=== PATIENT | male | born 1950 | race Caucasian/White ===

== ENCOUNTER 2022-10-29 11:10 | Emergency (ER) | payer MEDICARE, SELFPAY ==
[2022-10-29 11:24] VITALS: BP 178/95; PULSE 102; RESP 16; TEMP 36.5; O2SAT 98; BMI 20.5
[2022-10-29] MEDS: DEXTROSE 50 %-WATER 25 GM/50 ML SYRINGE IV (11:30)
--- NOTE | 2022-10-29 11:31 | ED.AMS1 ---
HPI - Altered Mental Status General Chief Complaint: Altered Mental Status Stated Complaint: DIZZINESS AND CONFUSION Time Seen by Provider: 10/29/22 11:31 History of Present Illness HPI narrative: pt brought into the emergency department with mental status changes. Family states patient woke up this morning and was not acting like himself. He did not have breakfast which she normally does in the morning. He states he forgot to do serial. Family states he was not oriented did not know who the family was he is slurring his speech and was not able to get himself dressed. He is normally pretty active. He is a diabetic and he took his medications last night. He was completely normal last night. He denies any trauma. Denies any fever, chills, cough. Denies any chest pain, shortness of breath. He denies any headache. He has not been sick with any nausea, vomiting, or diarrhea. Related Data Home Medications Medication Instructions Recorded Confirmed albuterol sulfate 2.5 mg/3 mL 2.5 mg continuous nebulization Q4H 10/29/22 10/29/22 (0.083 %) solution for nebulization PRN bronchospasm bupropion HCl 150 mg tablet,12 hr 150 mg PO Q12H 10/29/22 10/29/22 sustained-release carvedilol 6.25 mg tablet 6.25 mg PO Q12H 10/29/22 10/29/22 lisinopril 20 mg tablet 20 mg PO DAILY 10/29/22 10/29/22 metformin 1,000 mg tablet 1,000 mg PO BIDWM 10/29/22 10/29/22 pravastatin 40 mg tablet 40 mg PO DAILY 10/29/22 10/29/22 Allergies Allergy/AdvReac Type Severity Reaction Status Date / Time No Known Drug Allergies Allergy Verified 10/29/22 11:19 Review of Systems ROS Status of ROS 10 or more systems reviewed and unremarkable except as noted in history and below PFSH PFSH Social History Smoking status: Current every day smoker Exam Narrative Exam Narrative: Nurses notes and vital signs reviewed and patient is not hypoxic. General: Nontoxic, Elderly, and in no apparent distress. Skin: Warm, dry, no pallor noted. No Rash Head: Normocephalic, atraumatic. Neck: Supple, non-tender. Eye: Pupils are equal, round and EOMI. No scleral icterus. Ears, Nose, Mouth, and Throat: TM clear, no posterior oropharynx erythema or nasal mucosal hypertrophy, uvula is mid-line Oral mucosa is moist Cardiovascular: Regular Rate and Rhythm without murmur, gallop or rub. Respiratory: No accessory muscle use or respiratory distress. Lungs are clear to auscultation, no wheezing, rales or rhonchi Chest Wall: no tenderness Back: No midline thoracic or lumbar vertebral tenderness. No CVA tenderness Musculoskeletal: normal ROM, no calf or popliteal tenderness, no lower extremity edema/swelling GI: Abdomen is soft, non-distended. Normal bowel sounds. No masses appreciated. No tenderness to palpation. No rebound, guarding, or rigidity noted. Neurological: A&O x4. No cranial nerve dysfunction observed. No truncal ataxia. Moves all extremities. Sensation intact. Psychiatric: Cooperative and interactive. Normal mood and affect. Constitutional Vital Signs, click to edit/add: Last Vital Signs Temp 97.7 F 10/29/22 11:24 Pulse 100 H 10/29/22 13:59 Resp 16 10/29/22 13:59 BP 168/94 H 10/29/22 13:59 Pulse Ox 987 H 10/29/22 13:59 O2 Del Method Room Air 10/29/22 11:37 Course Vital Signs Vital signs: Vital Signs Temperature 97.7 F 10/29/22 11:24 Pulse Rate 102 H 10/29/22 11:24 Respiratory Rate 16 10/29/22 11:24 Blood Pressure 178/95 H 10/29/22 11:24 Pulse Oximetry 98 10/29/22 11:24 Oxygen Delivery Method Room Air 10/29/22 11:24 Temperature 97.7 F 10/29/22 11:24 Pulse Rate 100 H 10/29/22 13:59 Respiratory Rate 16 10/29/22 13:59 Blood Pressure 168/94 H 10/29/22 13:59 Pulse Oximetry 987 H 10/29/22 13:59 Oxygen Delivery Method Room Air 10/29/22 11:37 MDM - Altered Mental Status MDM Narrative Medical decision making narrative: Patient's glucose was 34. He was given an amp of dextrose and immediately went complex however remember everything was talkative all of his symptoms resolved 100 percent. All of that has resolved including CT scan, laboratory studies were unremarkable except his BNP was 2500. The patient denied any lower extremity edema or cramping. He denied any chest pain, shortness of breath. The patient is nontoxic, requesting discharge home. Advised to continue to monitor his sugar at home and shortly he eats his meals. At this time the patient is without objective evidence of an acute process requiring hospitalization or inpatient management. The patient has remained hemodynamically stable. No additional indication for emergent studies at this time. I answered all questions. Discussed discharge instructions including standard anticipatory guidance and what should prompt a return to the emergency department, including if they get worse are not getting better or develops any new or concerning symptoms. I've given them specific time frame in which to follow-up, and who to follow-up with. The patient demonstrates understanding. Patient is nontoxic and stable for discharge with outpatient follow-up. This note was created with the assistance of a speech recognition program. Although the intention is to generate documents that actually reflects the content of the visit, no guarantees can be provided that every mistake has been identified and corrected by editing. Lab Data Attestation: I reviewed the patient's lab results. Labs: Lab Results 10/29/22 10/29/22 10/29/22 Range/Units 11:28 11:31 11:41 WBC 8.0 (4.0-11.0) 10^3/uL RBC 4.59 L (4.70-6.10) 10^6/uL Hgb 13.8 L (14.0-18.0) g/dL Hct 41.2 L (42.0-54.0) % MCV 89.8 (80.0-94.0) fL MCH 30.1 (25.9-34.0) pg MCHC 33.5 (29.9-35.2) g/dL RDW 13.0 (11.0-15.0) % Plt Count 227 (150-450) 10^3/uL MPV 9.3 L (9.5-13.5) fL Neut % (Auto) 68.9 (43.0-75.0) % Lymph % (Auto) 19.0 L (20.5-60.0) % [place] % (Auto) 7.2 (1.7-12.0) % Eos % (Auto) 2.4 (0.9-7.0) % Baso % (Auto) 0.5 (0.2-2.0) % Neut # (Auto) 5.5 (1.4-6.5) 10^3/uL Lymph # (Auto) 1.5 (1.2-3.8) 10^3/uL [place] # (Auto) 0.6 (0.3-0.8) 10^3/uL Eos # (Auto) 0.2 (0.0-0.7) 10^3/uL Baso # (Auto) 0.0 (0.0-0.1) 10^3/uL Abs Immat Gran (auto) 0.16 H (0.00-0.03) 10^3/uL Imm/Tot Granulo (auto) 2.0 H (0.0-0.5) % Sodium 134 L (136-145) mmol/L Potassium 4.9 (3.5-5.1) mmol/L Chloride 100 (98-107) mmol/L Carbon Dioxide 28.5 (21.0-32.0) mmol/L Anion Gap 10.4 BUN 19.0 H (7.0-18.0) mg/dL Creatinine 1.11 (0.70-1.30) mg/dL Est GFR ( Amer) >60 (>=60) Est GFR (Non-Af Amer) >60 (>=60) BUN/Creatinine Ratio 17.1 Glucose 40 L* (74-106) mg/dL Calcium 9.2 (8.5-10.1) mg/dL Total Bilirubin 0.8 (0.2-1.0) mg/dL AST 24 (15-37) U/L ALT 22 (16-63) U/L Alkaline Phosphatase 91 (46-116) U/L Troponin I High Sens 13.1 (4.0-76.1) pg/mL NT-Pro-B Natriuret Pep 2527.0 H* (<=900.0) pg/mL Total Protein 7.7 (6.4-8.2) g/dL Albumin 4.0 (3.4-5.0) g/dL Globulin 3.7 g/dL Albumin/Globulin Ratio 1.1 POC Glucose 35 L* 154 H (74-106) mg/dL 10/29/22 10/29/22 Range/Units 12:13 13:46 WBC (4.0-11.0) 10^3/uL RBC (4.70-6.10) 10^6/uL Hgb (14.0-18.0) g/dL Hct (42.0-54.0) % MCV (80.0-94.0) fL MCH (25.9-34.0) pg MCHC (29.9-35.2) g/dL RDW (11.0-15.0) % Plt Count (150-450) 10^3/uL MPV (9.5-13.5) fL Neut % (Auto) (43.0-75.0) % Lymph % (Auto) (20.5-60.0) % [place] % (Auto) (1.7-12.0) % Eos % (Auto) (0.9-7.0) % Baso % (Auto) (0.2-2.0) % Neut # (Auto) (1.4-6.5) 10^3/uL Lymph # (Auto) (1.2-3.8) 10^3/uL [place] # (Auto) (0.3-0.8) 10^3/uL Eos # (Auto) (0.0-0.7) 10^3/uL Baso # (Auto) (0.0-0.1) 10^3/uL Abs Immat Gran (auto) (0.00-0.03) 10^3/uL Imm/Tot Granulo (auto) (0.0-0.5) % Sodium (136-145) mmol/L Potassium (3.5-5.1) mmol/L Chloride (98-107) mmol/L Carbon Dioxide (21.0-32.0) mmol/L Anion Gap BUN (7.0-18.0) mg/dL Creatinine (0.70-1.30) mg/dL Est GFR ( Amer) (>=60) Est GFR (Non-Af Amer) (>=60) BUN/Creatinine Ratio Glucose (74-106) mg/dL Calcium (8.5-10.1) mg/dL Total Bilirubin (0.2-1.0) mg/dL AST (15-37) U/L ALT (16-63) U/L Alkaline Phosphatase (46-116) U/L Troponin I High Sens (4.0-76.1) pg/mL NT-Pro-B Natriuret Pep (<=900.0) pg/mL Total Protein (6.4-8.2) g/dL Albumin (3.4-5.0) g/dL Globulin g/dL Albumin/Globulin Ratio POC Glucose 129 H 195 H (74-106) mg/dL ECG Data Attestation: I personally reviewed and interpreted this ECG as follows: Discharge Plan Discharge Chief Complaint: Altered Mental Status Clinical Impression: Hypoglycemia Patient Disposition: Home, Self-Care Time of Disposition Decision: 13:56 Condition: Good Mode of Transportation: Private Vehicle Prescriptions / Home Meds: No Action albuterol sulfate 2.5 mg /3 mL (0.083 %) solution for nebulization 2.5 mg continuous nebulization Q4H PRN (Reason: bronchospasm) bupropion HCl 150 mg tablet sustained-release 12 hr 150 mg PO Q12H carvedilol 6.25 mg tablet 6.25 mg PO Q12H lisinopril 20 mg tablet 20 mg PO DAILY metformin 1,000 mg tablet 1,000 mg PO BIDWM pravastatin 40 mg tablet 40 mg PO DAILY Instructions: Hypoglycemia in a Person with Diabetes (ED) Stand Alone Forms: Portal Instructions Referrals: LAURA SHEA [Primary Care Provider] - 1 week Discharge Date/Time: 10/29/22 14:05
--- NOTE | 2022-10-29 11:32 | ECG_ITS ---
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
--- NOTE | 2022-10-29 11:32 | XR_ITS ---
The [address] [address] Patient Name: FREIDA RIDDLE MRN: [id number] date: 1950 Sex: M Assigned Patient Location: ER Current Patient Location: ER Accession/Order Number: [id number] Exam Date: 10/29/2022 12:00 Report Date: 10/29/2022 12:25 At the request of: YEIMY MARTINEZ Procedure: XR chest 1V EXAM: XR chest 1V HISTORY: weakness and cough COMPARISON: 03/24/2022 TECHNIQUE: Chest X-ray AP, 1 view FINDINGS: Support devices: None. Lungs/pleura: No consolidation, effusion, or pneumothorax. Heart and mediastinum: Normal contours. Bones: No acute abnormality identified. XR/XR chest 1V Impression: No radiographic evidence of acute cardiopulmonary process. No definite consultation. However pneumonia can be radiographically occult. Electronically authenticated by: MAGY KNUTSON Date: 10/29/2022 12:25
[2022-10-29 11:34] VITALS: BMI 20.5
[2022-10-29 11:34] LABS: Glucometer 35 mg/dL (74-106)
[2022-10-29 11:37] VITALS: O2SAT 98
--- NOTE | 2022-10-29 11:40 | CT_ITS ---
The [address] [address] Patient Name: FREIDA RIDDLE MRN: [id number] date: 1950 Sex: M Assigned Patient Location: ER Current Patient Location: ER Accession/Order Number: [id number] Exam Date: 10/29/2022 12:05 Report Date: 10/29/2022 12:28 At the request of: YEIMY MARTINEZ Procedure: CT head/brain wo con EXAMINATION: CT head/brain wo con, 10/29/2022 12:05 PM EDT HISTORY: Mental status changes COMPARISON: None. TECHNIQUE: CT scan of the head was performed without IV contrast. CT dose reduction technique was used, including Automated Exposure Control. FINDINGS: BRAIN PARENCHYMA/CSF SPACES: Ventricles are normal in size for age. There is no hemorrhage, mass effect or midline shift. Mild low attenuation in the white matter consistent with chronic microvascular ischemia. PARANASAL SINUSES: Fluid noted in the mastoid air cells bilaterally. SKULL BASE AND CALVARIUM: Normal. EXTRACRANIAL SOFT TISSUES: Normal. CT/CT head/brain wo con IMPRESSION: 1. No acute intracranial abnormality. MRI would be more sensitive for acute infarct if clinically indicated. 2. Bilateral mastoiditis. Electronically authenticated by: GREY BRITO Date: 10/29/2022 12:28
[2022-10-29 11:43] LABS: Glucometer 154 mg/dL (74-106)
--- NOTE | 2022-10-29 11:43 | PC.NURSE ---
Ordered pt. a meal tray at this time
[2022-10-29 11:45] LABS: Basophils Percent Auto 0.5 % (0.2-2.0); Eosinophils Absolute Auto 0.2 10^3/uL (0.0-0.7); Eosinophils Percent Auto 2.4 % (0.9-7.0); Hematocrit 41.2 % (42.0-54.0); Hemoglobin 13.8 g/dL (14.0-18.0); Immature Granulocytes Abs Auto 0.16 10^3/uL (0.00-0.03); Lymphocytes Absolute Auto 1.5 10^3/uL (1.2-3.8); Mean Corpuscular HGB Conc 33.5 g/dL (29.9-35.2); Mean Corpuscular Hemoglobin 30.1 pg (25.9-34.0); Mean Corpuscular Volume 89.8 fL (80.0-94.0); Mean Platelet Volume 9.3 fL (9.5-13.5); Monocytes Absolute Auto 0.6 10^3/uL (0.3-0.8); Monocytes Percent Auto 7.2 % (1.7-12.0); Neutrophils Absolute Auto 5.5 10^3/uL (1.4-6.5); Neutrophils Percent Auto 68.9 % (43.0-75.0); Platelet Count 227 10^3/uL (150-450); Red Blood Count 4.59 10^6/uL (4.70-6.10)
[2022-10-29 12:12] LABS: Alanine Aminotransferase 22 U/L (16-63); Albumin Globulin Ratio 1.1; Alkaline Phosphatase 91 U/L (46-116); Anion Gap 10.4; Aspartate Amino Transferase 24 U/L (15-37); BUN Creatinine Ratio 17.1; Bilirubin Total 0.8 mg/dL (0.2-1.0); Calcium 9.2 mg/dL (8.5-10.1); Carbon Dioxide 28.5 mmol/L (21.0-32.0); Chloride 100 mmol/L (98-107); Estimated GFR (African America >60 (>=60); Estimated GFR (Non-African Ame >60 (>=60); Globulin 3.7 g/dL; Potassium 4.9 mmol/L (3.5-5.1); Sodium 134 mmol/L (136-145); Total Protein 7.7 g/dL (6.4-8.2); Troponin I High Sensitivity 13.1 pg/mL (4.0-76.1)
[2022-10-29 12:15] LABS: Glucometer 129 mg/dL (74-106)
[2022-10-29 12:20] LABS: Glucose 40 mg/dL (74-106)
[2022-10-29 12:37] VITALS: BP 150/78
[2022-10-29 13:47] LABS: Glucometer 195 mg/dL (74-106)
[2022-10-29 13:59] VITALS: BP 168/94; PULSE 100; RESP 16; O2SAT 98
== END 2022-10-29 14:05 | disposition home or self-care (01) ==
PROVIDERS: Emergency Provider Emergency Medicine; PCP Family Medicine
DX: E11.649 Type 2 diabetes mellitus with hypoglycemia without coma (principal); Z79.899 Other long term (current) drug therapy; Z79.84 Long term (current) use of oral hypoglycemic drugs; F17.210 Nicotine dependence, cigarettes, uncomplicated
CPT/HCPCS: 36415; 70450; 71045; 80053; 81003; 83880; 84484; 85025; 93005; 99285

== ENCOUNTER 2023-04-20 12:47 | Inpatient (IN) | payer MEDICARE, SELFPAY ==
[2023-04-20] VITALS (32 sets, daily range): BP systolic 92–140; BP diastolic 54–83; PULSE 83–109; RESP 16–29; TEMP 36.3–36.6; O2SAT 94–99; BMI 17.7; BMI 16.9
--- NOTE | 2023-04-20 13:22 | ECG_ITS ---
The 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
[2023-04-20] MEDS: IPRATROPIUM/ALBUTEROL SULFATE 3 ML AMPUL.NEB IH (13:42)
[2023-04-20 13:49] LABS: Basophils Percent Auto 0.1 % (0.2-2.0); Hematocrit 41.1 % (42.0-54.0); Hemoglobin 14.2 g/dL (14.0-18.0); Immature Granulocytes Abs Auto 0.07 10^3/uL (0.00-0.03); Immature Granulocytes Pct Auto 0.6 % (0.0-0.5); Lymphocytes Absolute Auto 0.8 10^3/uL (1.2-3.8); Lymphocytes Percent Auto 6.5 % (20.5-60.0); Mean Corpuscular HGB Conc 34.5 g/dL (29.9-35.2); Mean Corpuscular Volume 86.9 fL (80.0-94.0); Monocytes Absolute Auto 0.6 10^3/uL (0.3-0.8); Monocytes Percent Auto 4.5 % (1.7-12.0); Neutrophils Absolute Auto 10.9 10^3/uL (1.4-6.5); Neutrophils Percent Auto 88.3 % (43.0-75.0); Platelet Count 251 10^3/uL (150-450); Red Blood Count 4.73 10^6/uL (4.70-6.10); Red Cell Distribution Width 12.6 % (11.0-15.0); White Blood Count 12.3 10^3/uL (4.0-11.0)
--- NOTE | 2023-04-20 13:54 | XR_ITS ---
The [address] [address] Patient Name: FREIDA RIDDLE MRN: [id number] date: 1950 Sex: M Assigned Patient Location: ER Current Patient Location: ER Accession/Order Number: [id number] Exam Date: 04/20/2023 14:20 Report Date: 04/20/2023 15:08 At the request of: JEANNETTE TITUS Procedure: XR chest 2V CHEST X-RAY. INDICATION: Cough. COMPARISON: 10/29/2022. TECHNIQUE: Frontal and lateral chest radiographs. FINDINGS: TUBES AND LINES: None. LUNGS: Hyperexpanded lungs. No focal opacity. Redemonstrated calcified granulomas in the left lung. PLEURA: No effusions or pneumothorax. HEART AND MEDIASTINUM: Within normal limits. OSSEOUS STRUCTURES: No acute abnormality. XR/XR chest 2V IMPRESSION: No acute findings. Electronically authenticated by: EDGAR YOUNG Date: 04/20/2023 15:08
[2023-04-20] MEDS: 0.9 % SODIUM CHLORIDE 1,000 ML 1000 ML IV ×2 (13:55→14:59)
[2023-04-20] MEDS: ONDANSETRON PF 4 MG/2 ML VIAL IV (13:55)
[2023-04-20 14:11] LABS: Adenovirus NOT DETECTED (NOT DETECTE); Bordetella parapertussis NOT DETECTED (NOT DETECTE); Coronavirus 229E NOT DETECTED (NOT DETECTE); Coronavirus HKU1 NOT DETECTED (NOT DETECTE); Coronavirus NL63 NOT DETECTED (NOT DETECTE); Coronavirus OC43 NOT DETECTED (NOT DETECTE); Human Metapneumovirus NOT DETECTED (NOT DETECTE); Human Rhinovirus/Enterovirus NOT DETECTED (NOT DETECTE); Influenza A NOT DETECTED (NOT DETECTE); Influenza B NOT DETECTED (NOT DETECTE); Mycoplasma pneumoniae NOT DETECTED (NOT DETECTE); Parainfluenza Virus 1 NOT DETECTED (NOT DETECTE); Parainfluenza Virus 2 NOT DETECTED (NOT DETECTE); Parainfluenza Virus 3 NOT DETECTED (NOT DETECTE); Parainfluenza Virus 4 NOT DETECTED (NOT DETECTE); Respiratory Syncytial Virus NOT DETECTED (NOT DETECTE); SARS-CoV-2 NOT DETECTED (NOT DETECTE)
[2023-04-20 14:17] LABS: Alanine Aminotransferase 33 U/L (16-63); Albumin Globulin Ratio 0.7; Albumin Level 2.9 g/dL (3.4-5.0); Alkaline Phosphatase 108 U/L (46-116); Aspartate Amino Transferase 21 U/L (15-37); BUN Creatinine Ratio 32.7; Bilirubin Total 0.5 mg/dL (0.2-1.0); Calcium 8.8 mg/dL (8.5-10.1); Carbon Dioxide 20.9 mmol/L (21.0-32.0); Chloride 91 mmol/L (98-107); Estimated GFR (African America 32 (>=60); Estimated GFR (Non-African Ame 26 (>=60); Globulin 4.2 g/dL; Total Protein 7.1 g/dL (6.4-8.2); Troponin I High Sensitivity 25.7 pg/mL (4.0-76.1)
--- NOTE | 2023-04-20 14:30 | CT_ITS ---
[address] [address] Patient Name: FREIDA RIDDLE MRN: [id number] date: 1950 Sex: M Assigned Patient Location: ER Current Patient Location: ER Accession/Order Number: [id number] Exam Date: 04/20/2023 14:40 Report Date: 04/20/2023 15:10 At the request of: JEANNETTE TITUS Procedure: CT abdomen pelvis wo con EXAMINATION: CT abdomen pelvis wo con HISTORY: pain COMPARISON: 12/14/2020 TECHNIQUE: Axial, Coronal, and Sagittal images were created without IV contrast. Dose reduction techniques were achieved by using automated exposure control and/or adjustment of mA and/or kV according to patient size and/or use of iterative reconstruction technique. FINDINGS: LUNG BASES: Severe emphysema. Scattered calcified nodules, prior granulomatous disease LIVER: Pneumobilia. No focal mass BILIARY: Surgical clips from prior cholecystectomy PANCREAS: Severe stable atrophy. Scattered pancreatic calcifications most significant in the pancreatic head SPLEEN: No enlargement or focal lesion. ADRENALS: No mass or enlargement. KIDNEYS: No mass, obstruction, or calcification. BOWEL/MESENTERY: Mild colonic diverticulosis. Nonobstructive bowel gas pattern. Dilated loop of bowel with suture lines in the pelvis measuring up to 6.9 cm, stable AORTA/VASCULAR: Dilation of the right common iliac artery which measures 1.6 cm in diameter. Extensive atherosclerosis RETROPERITONEUM: No mass or adenopathy. LYMPH NODES: No adenopathy. URINARY BLADDER: No visible focal wall thickening, lesion, or calculus. PELVIC ORGANS: Enlarged prostate gland with calcifications ABDOMINAL WALL: No mass or hernia. BONES: No bony lesion or fracture. OTHER: Negative. CT/CT abdomen pelvis wo con IMPRESSION: Stable focal marked dilatation of a small bowel loop in the pelvis, nonspecific Pneumobilia Pancreatic atrophy with extensive calcifications suggesting chronic pancreatitis, grossly stable Electronically authenticated by: CAMILO BINGHAM Date: 04/20/2023 15:10
[2023-04-20 14:34] LABS: Glucose 793 mg/dL (74-106); Potassium 6.9 mmol/L (3.5-5.1); Sodium 120 mmol/L (136-145)
[2023-04-20 14:46] LABS: Acetone SMALL (NEGATIVE)
[2023-04-20 14:49] LABS: Partial Thromboplastin Time 25.9 sec (22.3-36.2); Prothrombin Time 9.5 sec (9.0-11.6)
[2023-04-20 15:01] LABS: INR <0.93
[2023-04-20] MEDS: INSULIN REGULAR IN 0.9 % NACL 100 UNIT/100 ML PLAST..BAG 5.126 UNIT IV (15:20)
[2023-04-20] MEDS: INSULIN REGULAR 300 UNITS/3 ML 10 UNIT IV (15:20)
--- NOTE | 2023-04-20 15:23 | ED.GENADUL1 ---
HPI - General Adult General Chief complaint: Nausea/Vomiting/Diarrhea Stated complaint: NAUSEA/VOMITTING Time Seen by Provider: 04/20/23 13:21 Source: patient and family Mode of arrival: walk-in Limitations: no limitations History of Present Illness HPI narrative: 72-year-old male presents with chief compliant of nausea and vomiting for the past several weeks. pt daughter in law at bedside states pt was seen by pcp yesterday and diagnosed with otitis media and started on augmentin. pt has a history of cirrhosis in the past with a complex abdominal surgery due to the cirrhosis. family members state he has had significant weight loss In the last several months. Patient does have a history of chronic obstructive pulmonary disease, hypertension and type 2 diabetes. [id number] states he will not take his medications at home. Patient has a loose nonproductive cough. He is hard of hearing, most of the past medical history obtained from [id number]. Patient will answer questions appropriately but is a poor historian. Upon arrival to the emergency room, patient states she just does not feel well. He has no appetite is unable to keep food down. Denies abdominal pain. Related Data Home Medications Medication Instructions Recorded Confirmed albuterol sulfate 2.5 mg/3 mL 2.5 mg continuous nebulization Q4H 10/29/22 04/20/23 (0.083 %) solution for nebulization PRN bronchospasm bupropion HCl 150 mg tablet,12 hr 150 mg PO Q12H 10/29/22 04/20/23 sustained-release carvedilol 6.25 mg tablet 6.25 mg PO Q12H 10/29/22 10/29/22 lisinopril 20 mg tablet 20 mg PO DAILY 10/29/22 04/20/23 metformin 1,000 mg tablet 1,000 mg PO BIDWM 10/29/22 04/20/23 pravastatin 40 mg tablet 40 mg PO DAILY 10/29/22 04/20/23 amoxicillin 875 mg-potassium 1 tab PO Q12H 04/20/23 04/20/23 clavulanate 125 mg tablet ciprofloxacin 0.3 %-dexamethasone 4 drp otic (ear) Q12H 04/20/23 04/20/23 0.1 % ear drops,suspension prednisone 10 mg tablet 40 mg PO DAILY 04/20/23 04/20/23 Allergies Allergy/AdvReac Type Severity Reaction Status Date / Time No Known Drug Allergies Allergy Verified 10/29/22 11:19 Review of Systems ROS Narrative All Systems are negative except as noted/marked. PFSH PFSH Social History Smoking status: Current every day smoker Exam Narrative Exam Narrative: Nurses note and vital signs reviewed and patient is not hypoxic. General: The patient appears Ill, no acute distress. Patient sleeping on cot Skin: Warm, dry, no pallor noted. There is no rash noted. Head: Normocephalic, atraumatic Eye: Normal conjunctiva, no drainage, EOMI. PERRL Ears, Nose, Mouth, and Throat: hard of hearing, oral mucosa is moist. Nares patent. Mouth without vesicles. Ear canals patent. Cardiovascular: Regular Rate and Rhythm Respiratory: Patient is in no distress, no accessory muscle use, lungs are clear to auscultation, no wheezing, rales or rhonchi Back: non-tender, no CVA tenderness bilaterally to percussion. GI: Normal bowel sounds, no tenderness to palpation, no masses appreciated. No rebound, guarding, or rigidity noted. Musculoskeletal: The patient has no evidence of calf tenderness, no pitting edema, symmetrical pulses noted bilaterally Neurological: A&O x4, normal speech Psychiatric: Cooperative Constitutional Vital Signs, click to edit/add: Last Vital Signs Temp 97.3 F L 04/20/23 12:55 Pulse 93 H 04/20/23 15:40 Resp 17 04/20/23 15:40 BP 127/54 04/20/23 15:30 Pulse Ox 97 04/20/23 14:20 O2 Del Method Room Air 04/20/23 13:34 Course Vital Signs Vital signs: Vital Signs Temperature 97.3 F L 04/20/23 12:55 Pulse Rate 93 H 04/20/23 12:55 Respiratory Rate 20 04/20/23 12:55 Blood Pressure 140/77 04/20/23 12:55 Pulse Oximetry 96 04/20/23 12:55 Oxygen Delivery Method Room Air 04/20/23 12:55 Temperature 97.3 F L 04/20/23 12:55 Pulse Rate 93 H 04/20/23 15:40 Respiratory Rate 17 04/20/23 15:40 Blood Pressure 127/54 04/20/23 15:30 Pulse Oximetry 97 04/20/23 14:20 Oxygen Delivery Method Room Air 04/20/23 13:34 Medical Decision Making MDM Narrative Medical decision making narrative: Patient presented here chief complaint nausea vomiting.Upon arrival to the emergency room, IV was established, patient was given IV fluids. Blood work EKG chest x-ray were all obtained. Patient does have a history of nausea vomiting with a significant abdominal surgery history in the past. CT scan was performed to rule out bowel obstruction. Chest x-ray read normal by radiology , CT scan so no acute bowel obstruction. As reviewed below patient does have significant hyponatremia and hyperkalemia, acute renal failure, hyperglycemia with no anion gap. Patient was given IV fluids and insulin here in emergency room. I discussed case with Dr. Bailey, who agrees patient can be admitted to our ICU unit. Patient's admitted. Patient family members agree with plan of care. Diagnosis of dehydration, hyperkalemia, hyponatremia, acute renal failure Differential Diagnosis Differential Diagnosis: copd, dehydration, nause and vomiting, bowel obstruction Medical Records Medical records reviewed: Yes I reviewed the patient's medical records Lab Data Lab results reviewed: Yes I reviewed the patient's lab results Lab results narrative: CBC shows an elevated white blood cell count of 12.3, sodium of one twenty,, potassium is 6.9, BUN/creatinine elevated at eighty and 2.45, glucose also elevated some 0.93, anion gap is normal at fifteen BNP is two thousand four hundred forty-eight, he does have small acetone. CO2 is also low at 20.9. Labs: Lab Results 04/20/23 04/20/23 04/20/23 Range/Units 13:39 14:05 15:36 WBC 12.3 H (4.0-11.0) 10^3/uL RBC 4.73 (4.70-6.10) 10^6/uL Hgb 14.2 (14.0-18.0) g/dL Hct 41.1 L (42.0-54.0) % MCV 86.9 (80.0-94.0) fL MCH 30.0 (25.9-34.0) pg MCHC 34.5 (29.9-35.2) g/dL RDW 12.6 (11.0-15.0) % Plt Count 251 (150-450) 10^3/uL MPV 11.0 (9.5-13.5) fL Neut % (Auto) 88.3 H (43.0-75.0) % Lymph % (Auto) 6.5 L (20.5-60.0) % [place] % (Auto) 4.5 (1.7-12.0) % Eos % (Auto) 0.0 L (0.9-7.0) % Baso % (Auto) 0.1 L (0.2-2.0) % Neut # (Auto) 10.9 H (1.4-6.5) 10^3/uL Lymph # (Auto) 0.8 L (1.2-3.8) 10^3/uL [place] # (Auto) 0.6 (0.3-0.8) 10^3/uL Eos # (Auto) 0.0 (0.0-0.7) 10^3/uL Baso # (Auto) 0.0 (0.0-0.1) 10^3/uL Abs Immat Gran (auto) 0.07 H (0.00-0.03) 10^3/uL Imm/Tot Granulo (auto) 0.6 H (0.0-0.5) % PT 9.5 (9.0-11.6) sec INR <0.93 APTT 25.9 (22.3-36.2) sec Sodium 120 L* (136-145) mmol/L Potassium 6.9 H* (3.5-5.1) mmol/L Chloride 91 L (98-107) mmol/L Carbon Dioxide 20.9 L (21.0-32.0) mmol/L Anion Gap 15.0 BUN 80.0 H* (7.0-18.0) mg/dL Creatinine 2.45 H (0.70-1.30) mg/dL Est GFR ( Amer) 32 L (>=60) Est GFR (Non-Af Amer) 26 L (>=60) BUN/Creatinine Ratio 32.7 Glucose 793 H* (74-106) mg/dL Calcium 8.8 (8.5-10.1) mg/dL Total Bilirubin 0.5 (0.2-1.0) mg/dL AST 21 (15-37) U/L ALT 33 (16-63) U/L Alkaline Phosphatase 108 (46-116) U/L Troponin I High Sens 25.7 (4.0-76.1) pg/mL NT-Pro-B Natriuret Pep 2448.0 H* (<=900.0) pg/mL Total Protein 7.1 (6.4-8.2) g/dL Albumin 2.9 L (3.4-5.0) g/dL Globulin 4.2 g/dL Albumin/Globulin Ratio 0.7 Lipase 19.0 (16.0-77.0) U/L Urine Color Lt. yellow (YELLOW) Urine Clarity Clear (CLEAR) Urine pH 5.5 (5.0-9.0) Ur Specific [place] 1.010 (1.005-1.025) Urine Protein Negative (NEG/TRACE) mg/dL Urine Glucose (UA) >=1000 A (NEGATIVE) mg/dL Urine Ketones 15 A (NEGATIVE) mg/dL Urine Occult Blood Negative (NEGATIVE) Urine Nitrite Negative (NEGATIVE) Urine Bilirubin Negative (NEGATIVE) Urine Urobilinogen 0.2 (0.2-1.0) EU/dL Ur Leukocyte Esterase Negative (NEGATIVE) Urine RBC 0-2 (0-2) #/HPF Urine WBC 0-2 A (NONE SEEN) #/HPF Ur Squamous Epith Cells None seen (NONE/RARE) #/LPF Urine Crystals None seen (None Seen) #/HPF Urine Bacteria None seen (NONE SEEN) #/HPF Urine Casts None seen (NONE SEEN) #/LPF Urine Mucus None seen (NONE SEEN) Acetone, Qual Small A (NEGATIVE) Adenovirus (PCR) Not detected (NOT DETECTE) C. pneumoniae DNA (PCR) Not detected (NOT DETECTE) Coronavirus Type OC43 Not detected (NOT DETECTE) Coronavirus Type HKU1 Not detected (NOT DETECTE) Coronavirus Type 229E Not detected (NOT DETECTE) Coronavirus Type NL63 Not detected (NOT DETECTE) Human Metapneumovir PCR Not detected (NOT DETECTE) M. pneumoniae (PCR) Not detected (NOT DETECTE) Parainfluenza PCR Not detected (NOT DETECTE) Parainfluenza 2 (PCR) Not detected (NOT DETECTE) Parainfluenza 3 (PCR) Not detected (NOT DETECTE) Parainfluenza 4 (PCR) Not detected (NOT DETECTE) RSV (RT-PCR) Not detected (NOT DETECTE) Entero/Rhino (PCR) Not detected (NOT DETECTE) SARS-CoV-2 (PCR) Not detected (NOT DETECTE) Bordetella pertussis (PCR) Not detected (NOT DETECTE) B parapertussis DNA PCR Not detected (NOT DETECTE) Influenza Type A (PCR) Not detected (NOT DETECTE) Influenza Type B (PCR) Not detected (NOT DETECTE) Imaging Data Chest x-ray: Attestation: I have reviewed the pertinent imaging results. Radiologist's impression: ITS Impressions Chest X-Ray 04/20/23 13:54 IMPRESSION: No acute findings. Electronically authenticated by: EDGAR YOUNG Date: 04/20/2023 15:08 Abdomen/Pelvis CT 04/20/23 14:30 IMPRESSION: Stable focal marked dilatation of a small bowel loop in the pelvis, nonspecific Pneumobilia Pancreatic atrophy with extensive calcifications suggesting chronic pancreatitis, grossly stable Electronically authenticated by: CAMILO BINGHAM Date: 04/20/2023 15:10 ECG Data Attestation: ?I have reviewed the pertinent ECG results. Interpretation: 1328 Sinus tachycardia with a rate of100 bpm, IA interval 186 ms, 100 bpm, IA interval 186 ms, QRS duration 100 ms, 100 No STEMI, artifact notedNo STEMI, artifact noted, similar compared to previous EKG in October 2022 Discharge Plan Discharge Chief Complaint: Nausea/Vomiting/Diarrhea Clinical Impression: Acute renal failure, Hyperglycemia, Dehydration, Acute hyperkalemia Patient Disposition: Admitted As Inpatient Time of Disposition Decision: 15:45 Condition: Fair
[2023-04-20 15:46] LABS: Bilirubin Urine NEGATIVE (NEGATIVE); Blood Urine NEGATIVE (NEGATIVE); Clarity Urine CLEAR (CLEAR); Color Urine LT. YELLOW (YELLOW); Glucose Urine UA >=1000 mg/dL (NEGATIVE); Ketones Urine 15 mg/dL (NEGATIVE); Leukocyte Esterase Urine NEGATIVE (NEGATIVE); Nitrite Urine NEGATIVE (NEGATIVE); Protein Urine NEGATIVE (NEG/TRACE); Urobilinogen Urine 0.2 EU/dL (0.2-1.0); pH Urine 5.5 (5.0-9.0)
[2023-04-20 15:58] LABS: Bacteria Urine NONE SEEN #/HPF (NONE SEEN); Cast Seen? NONE SEEN #/LPF (NONE SEEN); Crystals Seen? None Seen #/HPF (None Seen); Mucus Urine NONE SEEN (NONE SEEN); RBC Urine 0-2 #/HPF (0-2); Squamous Epithelial Cell Urine NONE SEEN #/LPF (NONE/RARE); WBC Urine 0-2 #/HPF (NONE SEEN)
[2023-04-20 16:26] LABS: Glucometer 529 mg/dL (74-106)
[2023-04-20 16:53] LABS: Anion Gap 15.7; BUN Creatinine Ratio 34.4; Calcium 7.9 mg/dL (8.5-10.1); Carbon Dioxide 20.7 mmol/L (21.0-32.0); Chloride 103 mmol/L (98-107); Estimated GFR (African America 38 (>=60); Estimated GFR (Non-African Ame 31 (>=60); Glucose 457 mg/dL (74-106); Potassium 5.4 mmol/L (3.5-5.1); Sodium 134 mmol/L (136-145)
[2023-04-20 18:15] LABS: Glucometer 429 mg/dL (74-106)
--- NOTE | 2023-04-20 19:35 | RESP.RT ---
No PRN breathing tx given. Pt denies need. No respiratory distress noted.
[2023-04-20 21:15] LABS: Glucometer 311 mg/dL (74-106)
[2023-04-20] MEDS: 0.9 % SODIUM CHLORIDE 1,000 ML 125 ML IV (21:16)
[2023-04-20] MEDS: BUPROPION HCL 150 MG SR TABLET 12H PO (21:21)
[2023-04-20] MEDS: CARVEDILOL 6.25 MG TABLET PO (21:21)
[2023-04-20] MEDS: AMOXICILLIN/POTASSIUM CLAV 1 TAB TABLET PO (21:21)
[2023-04-20] MEDS: CIPROFLOXACIN HCL/DEXAMETH 0.3%/0.1% OTIC SUSP 150 DROP/7.5 ML BOTTLE OT (21:22)
[2023-04-20] MEDS: ENOXAPARIN SODIUM 40 MG/0.4 ML SYRINGE SUBQ (21:22)
[2023-04-20] MEDS: ATORVASTATIN CALCIUM 10 MG TABLET PO (21:25)
[2023-04-20] MEDS: INSULIN ASPART 300 UNIT/3 ML PEN SUBQ (21:32)
[2023-04-21] VITALS (34 sets, daily range): BP systolic 79–143; BP diastolic 43–114; PULSE 73–98; RESP 14–31; TEMP 36.3–36.8; O2SAT 93–99
[2023-04-21] MEDS: 0.9 % SODIUM CHLORIDE 500 ML IV (01:40)
[2023-04-21] MEDS: 0.9 % SODIUM CHLORIDE 1,000 ML 150 ML IV ×4 (02:30→23:00)
[2023-04-21 04:47] LABS: Eosinophils Absolute Auto 0.1 10^3/uL (0.0-0.7); Eosinophils Percent Auto 1.2 % (0.9-7.0); Hemoglobin 11.3 g/dL (14.0-18.0); Immature Granulocytes Abs Auto 0.07 10^3/uL (0.00-0.03); Immature Granulocytes Pct Auto 0.7 % (0.0-0.5); Lymphocytes Absolute Auto 1.3 10^3/uL (1.2-3.8); Lymphocytes Percent Auto 13.8 % (20.5-60.0); Mean Corpuscular HGB Conc 33.2 g/dL (29.9-35.2); Mean Corpuscular Hemoglobin 29.7 pg (25.9-34.0); Mean Corpuscular Volume 89.5 fL (80.0-94.0); Mean Platelet Volume 10.5 fL (9.5-13.5); Monocytes Absolute Auto 0.7 10^3/uL (0.3-0.8); Monocytes Percent Auto 7.2 % (1.7-12.0); Neutrophils Absolute Auto 7.5 10^3/uL (1.4-6.5); Neutrophils Percent Auto 77.1 % (43.0-75.0); Platelet Count 162 10^3/uL (150-450); Red Cell Distribution Width 12.9 % (11.0-15.0); White Blood Count 9.7 10^3/uL (4.0-11.0)
[2023-04-21 05:07] LABS: Alanine Aminotransferase 22 U/L (16-63); Albumin Globulin Ratio 0.7; Alkaline Phosphatase 67 U/L (46-116); Anion Gap 10.8; Aspartate Amino Transferase 17 U/L (15-37); BUN Creatinine Ratio 42.8; Bilirubin Total 0.4 mg/dL (0.2-1.0); Calcium 7.8 mg/dL (8.5-10.1); Carbon Dioxide 19.8 mmol/L (21.0-32.0); Chloride 107 mmol/L (98-107); Estimated GFR (African America 55 (>=60); Estimated GFR (Non-African Ame 45 (>=60); Globulin 2.9 g/dL; Glucose 289 mg/dL (74-106); Potassium 5.6 mmol/L (3.5-5.1); Sodium 132 mmol/L (136-145); Total Protein 4.9 g/dL (6.4-8.2)
[2023-04-21] MEDS: BUPROPION HCL 150 MG SR TABLET 12H PO ×2 (07:33→17:13)
[2023-04-21] MEDS: CARVEDILOL 6.25 MG TABLET PO ×2 (07:33→17:13)
[2023-04-21] MEDS: AMOXICILLIN/POTASSIUM CLAV 1 TAB TABLET PO ×2 (07:33→17:22)
[2023-04-21] MEDS: CIPROFLOXACIN HCL/DEXAMETH 0.3%/0.1% OTIC SUSP 150 DROP/7.5 ML BOTTLE OT ×2 (07:35→17:22)
[2023-04-21 08:03] LABS: Glucometer 246 mg/dL (74-106)
[2023-04-21] MEDS: INSULIN ASPART 300 UNIT/3 ML PEN SUBQ ×4 (09:17→22:58)
[2023-04-21] MEDS: LISINOPRIL 20 MG TABLET PO (09:20)
--- NOTE | 2023-04-21 09:38 | PM.HP ---
H&P: HPI History of Present Illness Chief complaint: NAUSEA/VOMITTING Acute renal failure hyperglycemia Narrative: patient is a very pleasant 72-year-old male with past medical history of hypertension, stk-[id number] type 2 diabetes, hyperlipidemia, depression, smoker who presented with a several week history of some nausea and vomiting and some hearing loss. He was diagnosed with right otitis media and had been prescribed Augmentin. He was brought to the hospital yesterday for elevated blood sugar, weakness and was found to have an acute kidney injury and some electrolyte abnormalities. Patient reports improvement but says he still cannot hear and is having some pressure in his right ear. Along with some drainage from both ears. He denies any other issues or complaints this morning, he denies any fevers chills nausea vomiting or diarrhea.viral panel was negative. Review of Systems ROS Narrative ROS: a complete review of systems were reviewed with patient and are positive as below or listed in History of Chief Complaint. General: no fever, chills, night sweats Head: no headache, trauma, visual changes, nausea or vomiting Skin: no reported rashes, itching or sores Eyes: no blurriness of vision Ears:reported hearing loss, some vertigo, right earache, no tinnitus Throat: no sore throat, hoarseness, swelling of neck, or tongue pain Heart: no chest pain Lungs: no shortness of breath or cough GI: no diarrhea, but vomiting/nausea Urinary: no urinary urgency, frequency or pain Neuro: no numbness or tingling HEM: no bleeding issues or bruising ENDO: no thyroid problems Psych: no anxiety or depression PFSH [facility] Medical History (Updated 04/21/23 @ 14:44 by Ashley Begum DO) COPD (chronic obstructive pulmonary disease) ?J44.9 - Chronic obstructive pulmonary disease, unspecified (ICD-10) Otitis media ?H66.90 - Otitis media, unspecified, unspecified ear (ICD-10) Diabetes ?E11.9 - Type 2 diabetes mellitus without complications (ICD-10) Social History Within the past year, how often did you have a drink containing alcohol: never Score interpretation: A score less than 4 is consistent with normal alcohol consumption. Smoking status: Current every day smoker Non-prescribed substance use: denies use Highest level of school completed/degree received: high school graduate Meds Home Medications and Allergies Home Medications Medication Instructions Recorded Confirmed Type albuterol sulfate 2.5 mg/3 mL 2.5 mg continuous nebulization Q4H 10/29/22 04/20/23 History (0.083 %) solution for nebulization PRN bronchospasm bupropion HCl 150 mg tablet,12 hr 150 mg PO Q12H 10/29/22 04/20/23 History sustained-release carvedilol 6.25 mg tablet 6.25 mg PO Q12H 10/29/22 10/29/22 History lisinopril 20 mg tablet 20 mg PO DAILY 10/29/22 04/20/23 History metformin 1,000 mg tablet 1,000 mg PO BIDWM 10/29/22 04/20/23 History pravastatin 40 mg tablet 40 mg PO DAILY 10/29/22 04/20/23 History amoxicillin 875 mg-potassium 1 tab PO Q12H 04/20/23 04/20/23 History clavulanate 125 mg tablet ciprofloxacin 0.3 %-dexamethasone 4 drp otic (ear) Q12H 04/20/23 04/20/23 History 0.1 % ear drops,suspension prednisone 10 mg tablet 40 mg PO DAILY 04/20/23 04/20/23 History Allergies Allergy/AdvReac Type Severity Reaction Status Date / Time No Known Drug Allergies Allergy Verified 10/29/22 11:19 Exam Narrative Exam Narrative: General: Patient is alert, and oriented to person, place and time with normal affect, proper hygiene Skin: no visible rashes, or ulcers Head: atraumatic, acephalic Eyes: PERRLA, no nystagmus present, conjunctiva clear, no scleral icterus Ears: right Tympanic Membrane with effusion and erythema, significant drainage in the right ear canal, diminished gross auditory acuity, Left TM ok Nose: symmetric, no discharge, no maxillary or frontal sinus tenderness Heart: Normal rate and rhythm, no murmurs/rubs/gallops Lungs: no audible wheezes, crackles and normal breath sounds all lung linares Abdomen: Normal audible bowel sounds, no distension, No palpable masses, no organomegaly, no rebound/guarding/ or rigidity Musculoskeletal: no swelling bilateral lower extremities Neuro: CN II-X grossly intact, normal sensation upper and lower extremities Constitutional Vital Signs, click to edit/add: Last Vital Signs Temp 97.4 F L 04/21/23 07:44 Pulse 89 04/21/23 09:00 Resp 22 04/21/23 09:00 BP 134/67 04/21/23 07:44 Pulse Ox 98 04/21/23 07:53 O2 Del Method Room Air 04/20/23 19:35 Results Labs Labs: Short CBC 04/20/23 04/21/23 Range/Units 13:39 04:24 WBC 12.3 H 9.7 (4.0-11.0) 10^3/uL Hgb 14.2 11.3 L (14.0-18.0) g/dL Hct 41.1 L 34.0 L (42.0-54.0) % Plt Count 251 162 (150-450) 10^3/uL BMP 04/20/23 04/20/23 04/21/23 13:39 16:41 04:24 Sodium 120 L* 134 L 132 L Potassium 6.9 H* 5.4 H 5.6 H Chloride 91 L 103 107 Carbon Dioxide 20.9 L 20.7 L 19.8 L BUN 80.0 H* 72.0 H 65.0 H Creatinine 2.45 H 2.09 H 1.52 H Glucose 793 H* 457 H 289 H Calcium 8.8 7.9 L 7.8 L Liver Function 04/20/23 04/21/23 Range/Units 13:39 04:24 Total Bilirubin 0.5 0.4 (0.2-1.0) mg/dL AST 21 17 (15-37) U/L ALT 33 22 (16-63) U/L Alkaline Phosphatase 108 67 (46-116) U/L Albumin 2.9 L 2.0 L (3.4-5.0) g/dL Urine 04/20/23 Range/Units 15:36 Urine Color Lt. yellow (YELLOW) Urine Clarity Clear (CLEAR) Urine pH 5.5 (5.0-9.0) Ur Specific [place] 1.010 (1.005-1.025) Urine Protein Negative (NEG/TRACE) mg/dL Urine Glucose (UA) >=1000 A (NEGATIVE) mg/dL Assessment and Plan Assessment and Plan (1) Acute hyperkalemia: Assessment and Plan: was given insulin for treatment, down to 5.6 today, will continue insulin therapy, Hold lisinopril. (2) Hyperglycemia: Assessment and Plan: SSI, hold metformin for MIR (3) Acute renal failure: Assessment and Plan: hold metformin, continue IVF Qualifiers: Acute renal failure type: unspecified Qualified Code(s): N17.9 - Acute kidney failure, unspecified (4) Otitis media: Assessment and Plan: continue cipro drops, oral Augmentin, will add daily flonase. May benefit from ENT consult as outpatient Qualifiers: Otitis media type: serous Chronicity: acute Laterality: right Recurrence: non-recurrent Qualified Code(s): H65.01 - Acute serous otitis media, right ear (5) COPD (chronic obstructive pulmonary disease): Assessment and Plan: smoker, continue prn albuterol Qualifiers: COPD type: unspecified COPD Qualified Code(s): J44.9 - Chronic obstructive pulmonary disease, unspecified (6) Diabetes: Assessment and Plan: SSI, hold metformin, Ha1c was 12.1, start Levemir 10 units Qualifiers: Diabetes mellitus type: type 2 Diabetes mellitus halfway insulin use: without intermodal customer service use Diabetes mellitus complication status: with other specified complication Qualified Code(s): E11.69 - Type 2 diabetes mellitus with other specified complication (7) Hypertension: Assessment and Plan: continue coreg, hold lisinopril for elevated potassium Qualifiers: Hypertension type: primary hypertension Qualified Code(s): I10 - Essential (primary) hypertension (8) Hyperlipidemia associated with type 2 diabetes mellitus: Assessment and Plan: continue pravastatin Plan continue lovenox for DVT prophylaxis Patient is a full code Patient is admitted to observation and is not expected to stay more than two midnights
[2023-04-21 10:13] LABS: Estimated Average Glucose 301 mg/dL; Glycohemoglobin A1C 12.1 % (4.5-6.2)
[2023-04-21 11:58] LABS: Glucometer 362 mg/dL (74-106)
[2023-04-21] MEDS: FLUTICASONE PROPIONATE 50 MCG NASAL SPRAY 2 SPRAY NS (13:32)
--- NOTE | 2023-04-21 16:58 | PC.NURSE ---
Family notified that patient was transferred to room 213. Verbalized understanding
[2023-04-21] MEDS: ENOXAPARIN SODIUM 40 MG/0.4 ML SYRINGE SUBQ (17:13)
--- NOTE | 2023-04-21 20:32 | RESP.RT ---
No PRN breathing tx given. Pt denies need. No respiratory distress noted.
[2023-04-21] MEDS: ATORVASTATIN CALCIUM 10 MG TABLET PO (22:58)
[2023-04-21] MEDS: INSULIN DETEMIR 300 UNIT/3 ML INSULN.PEN 10 UNIT SUBQ (22:59)
[2023-04-21 23:00] LABS: Glucometer 172 mg/dL (74-106)
[2023-04-22 05:00] LABS: Eosinophils Absolute Auto 0.1 10^3/uL (0.0-0.7); Eosinophils Percent Auto 2.7 % (0.9-7.0); Hematocrit 30.5 % (42.0-54.0); Hemoglobin 10.2 g/dL (14.0-18.0); Immature Granulocytes Abs Auto 0.06 10^3/uL (0.00-0.03); Immature Granulocytes Pct Auto 1.1 % (0.0-0.5); Lymphocytes Percent Auto 19.2 % (20.5-60.0); Mean Corpuscular HGB Conc 33.4 g/dL (29.9-35.2); Mean Corpuscular Hemoglobin 30.2 pg (25.9-34.0); Mean Corpuscular Volume 90.2 fL (80.0-94.0); Mean Platelet Volume 10.7 fL (9.5-13.5); Monocytes Absolute Auto 0.3 10^3/uL (0.3-0.8); Monocytes Percent Auto 6.1 % (1.7-12.0); Neutrophils Absolute Auto 3.7 10^3/uL (1.4-6.5); Neutrophils Percent Auto 70.9 % (43.0-75.0); Platelet Count 135 10^3/uL (150-450); Red Blood Count 3.38 10^6/uL (4.70-6.10); Red Cell Distribution Width 13.2 % (11.0-15.0); White Blood Count 5.3 10^3/uL (4.0-11.0)
[2023-04-22] MEDS: CARVEDILOL 6.25 MG TABLET PO ×2 (05:23→18:18)
[2023-04-22] MEDS: BUPROPION HCL 150 MG SR TABLET 12H PO ×2 (05:23→18:18)
[2023-04-22] MEDS: 0.9 % SODIUM CHLORIDE 1,000 ML 150 ML IV (05:23)
[2023-04-22] MEDS: AMOXICILLIN/POTASSIUM CLAV 1 TAB TABLET PO (05:23)
[2023-04-22] MEDS: CIPROFLOXACIN HCL/DEXAMETH 0.3%/0.1% OTIC SUSP 150 DROP/7.5 ML BOTTLE OT ×2 (05:23→18:18)
[2023-04-22 05:25] LABS: Alanine Aminotransferase 24 U/L (16-63); Albumin Globulin Ratio 0.6; Albumin Level 1.9 g/dL (3.4-5.0); Alkaline Phosphatase 62 U/L (46-116); Anion Gap 7.3; Aspartate Amino Transferase 21 U/L (15-37); BUN Creatinine Ratio 34.2; Bilirubin Total 0.3 mg/dL (0.2-1.0); Calcium 7.7 mg/dL (8.5-10.1); Carbon Dioxide 20.3 mmol/L (21.0-32.0); Chloride 110 mmol/L (98-107); Estimated GFR (African America >60 (>=60); Estimated GFR (Non-African Ame >60 (>=60); Glucose 103 mg/dL (74-106); Potassium 4.6 mmol/L (3.5-5.1); Sodium 133 mmol/L (136-145); Total Protein 4.9 g/dL (6.4-8.2)
[2023-04-22 05:32] VITALS: BP 136/73; PULSE 96; RESP 20; TEMP 36.4; O2SAT 93
[2023-04-22 08:00] LABS: Glucometer 97 mg/dL (74-106)
--- NOTE | 2023-04-22 08:43 | PM.DS1 ---
DS: Providers Provider Date of admission: 04/20/23 16:14 Primary care physician: LAURA SHEA Consults: 04/20/23 Consult to Dietitian Routine Reason For Exam: poor oral intake Reason for consultation: poor oral intake/trouble swallowing, nausea Has provider been notified: No 04/20/23 17:19 Physical Therapy Eval and Treat Routine Reason for consultation: Weakness DS: Diagnosis Discharge Diagnosis (1) Acute hyperkalemia: (2) Hyperglycemia: (3) Acute renal failure: Qualifiers: Acute renal failure type: unspecified Qualified Code(s): N17.9 - Acute kidney failure, unspecified (4) Otitis media: Qualifiers: Otitis media type: serous Chronicity: acute Laterality: right Recurrence: non-recurrent Qualified Code(s): H65.01 - Acute serous otitis media, right ear (5) COPD (chronic obstructive pulmonary disease): Qualifiers: COPD type: unspecified COPD Qualified Code(s): J44.9 - Chronic obstructive pulmonary disease, unspecified (6) Diabetes: Qualifiers: Diabetes mellitus type: type 2 Diabetes mellitus detention insulin use: without adjunct faculty for medical terminology use Diabetes mellitus complication status: with other specified complication Qualified Code(s): E11.69 - Type 2 diabetes mellitus with other specified complication (7) Hypertension: Qualifiers: Hypertension type: primary hypertension Qualified Code(s): I10 - Essential (primary) hypertension (8) Hyperlipidemia associated with type 2 diabetes mellitus: DS: Summary Time Spent with Patient Time attestation: Total time spent providing and/or coordinating discharge services: Exam Constitutional Vital Signs, click to edit/add: Last Vital Signs Temp 97.5 F L 04/22/23 05:32 Pulse 96 H 04/22/23 05:32 Resp 20 04/22/23 05:32 BP 136/73 04/22/23 05:32 Pulse Ox 93 L 04/22/23 05:32 O2 Del Method Room Air 04/22/23 05:32 DS: Data Data Completed and Pending Labs on day of discharge: Labs from last 24 hours 04/22/23 04/22/23 04/21/23 07:59 04:29 22:58 WBC 5.3 RBC 3.38 L Hgb 10.2 L Hct 30.5 L MCV 90.2 MCH 30.2 MCHC 33.4 RDW 13.2 Plt Count 135 L MPV 10.7 Neut % (Auto) 70.9 Lymph % (Auto) 19.2 L [place] % (Auto) 6.1 Eos % (Auto) 2.7 Baso % (Auto) 0.0 L Neut # (Auto) 3.7 Lymph # (Auto) 1.0 L [place] # (Auto) 0.3 Eos # (Auto) 0.1 Baso # (Auto) 0.0 Abs Immat Gran (auto) 0.06 H Imm/Tot Granulo (auto) 1.1 H Sodium 133 L Potassium 4.6 Chloride 110 H Carbon Dioxide 20.3 L Anion Gap 7.3 BUN 39.0 H Creatinine 1.14 Est GFR ( Amer) >60 Est GFR (Non-Af Amer) >60 BUN/Creatinine Ratio 34.2 Glucose 103 Estimat Average Glucose Hemoglobin A1c Calcium 7.7 L Total Bilirubin 0.3 AST 21 ALT 24 Alkaline Phosphatase 62 Total Protein 4.9 L Albumin 1.9 L Globulin 3.0 Albumin/Globulin Ratio 0.6 POC Glucose 97 172 H 04/21/23 04/21/23 11:56 04:24 WBC RBC Hgb Hct MCV MCH MCHC RDW Plt Count MPV Neut % (Auto) Lymph % (Auto) [place] % (Auto) Eos % (Auto) Baso % (Auto) Neut # (Auto) Lymph # (Auto) [place] # (Auto) Eos # (Auto) Baso # (Auto) Abs Immat Gran (auto) Imm/Tot Granulo (auto) Sodium Potassium Chloride Carbon Dioxide Anion Gap BUN Creatinine Est GFR ( Amer) Est GFR (Non-Af Amer) BUN/Creatinine Ratio Glucose Estimat Average Glucose 301 Hemoglobin A1c 12.1 H Calcium Total Bilirubin AST ALT Alkaline Phosphatase Total Protein Albumin Globulin Albumin/Globulin Ratio POC Glucose 362 H Discharge Plan Discharge Condition: Fair Discharge Medications: No Action albuterol sulfate 2.5 mg /3 mL (0.083 %) solution for nebulization 2.5 mg continuous nebulization Q4H PRN (Reason: bronchospasm) bupropion HCl 150 mg tablet sustained-release 12 hr 150 mg PO Q12H carvedilol 6.25 mg tablet 6.25 mg PO Q12H lisinopril 20 mg tablet 20 mg PO DAILY metformin 1,000 mg tablet 1,000 mg PO BIDWM pravastatin 40 mg tablet 40 mg PO DAILY amoxicillin-pot clavulanate 875-125 mg tablet 1 tab PO Q12H ciprofloxacin-dexamethasone 0.3-0.1 % drops,suspension 4 drp OTIC (EAR) Q12H prednisone 10 mg tablet 40 mg PO DAILY Rx Instructions: 10mg , 4 tablets for 4 days then take 30mg for 4 days.
[2023-04-22] MEDS: FLUTICASONE PROPIONATE 50 MCG NASAL SPRAY 2 SPRAY NS (09:14)
[2023-04-22 11:23] VITALS: O2SAT 96
[2023-04-22 11:56] LABS: Glucometer 307 mg/dL (74-106)
[2023-04-22] MEDS: INSULIN ASPART 300 UNIT/3 ML PEN SUBQ ×3 (12:05→22:26)
[2023-04-22 14:00] VITALS: BP 125/72; PULSE 92; RESP 18; TEMP 36.6; O2SAT 92
--- NOTE | 2023-04-22 15:56 | PM.PN ---
Progress Note: Subjective Subjective Interval history: complaining of decreased hearing, cough, and constipation this morning. He denies fevers or chills, no n/v/d. right ear with some drainage but improved. Exam Narrative Exam Narrative: General: Patient is alert, and oriented to person, place and time with normal affect, proper hygiene Skin: no visible rashes, or ulcers Head: atraumatic, acephalic Eyes: PERRLA, no nystagmus present, conjunctiva clear, no scleral icterus Ears: right Tympanic Membrane with effusion and erythema, significant drainage in the right ear canal, diminished gross auditory acuity, Left TM normal Nose: symmetric, no discharge, no maxillary or frontal sinus tenderness Heart: Normal rate and rhythm, no murmurs/rubs/gallops Lungs: no audible wheezes, crackles and normal breath sounds all lung linares Abdomen: Normal audible bowel sounds, no distension, No palpable masses, no organomegaly, no rebound/guarding/ or rigidity Musculoskeletal: no swelling bilateral lower extremities Neuro: CN II-X grossly intact, normal sensation upper and lower extremities Constitutional Vital Signs, click to edit/add: Last Vital Signs Temp 97.8 F 04/22/23 14:00 Pulse 92 H 04/22/23 14:00 Resp 18 04/22/23 14:00 BP 125/72 04/22/23 14:00 Pulse Ox 92 L 04/22/23 14:00 O2 Del Method Room Air 04/22/23 14:00 Progress Note: Objective Labs Labs: Short CBC 04/22/23 Range/Units 04:29 WBC 5.3 (4.0-11.0) 10^3/uL Hgb 10.2 L (14.0-18.0) g/dL Hct 30.5 L (42.0-54.0) % Plt Count 135 L (150-450) 10^3/uL BMP 04/22/23 04:29 Sodium 133 L Potassium 4.6 Chloride 110 H Carbon Dioxide 20.3 L BUN 39.0 H Creatinine 1.14 Glucose 103 Calcium 7.7 L Liver Function 04/22/23 Range/Units 04:29 Total Bilirubin 0.3 (0.2-1.0) mg/dL AST 21 (15-37) U/L ALT 24 (16-63) U/L Alkaline Phosphatase 62 (46-116) U/L Albumin 1.9 L (3.4-5.0) g/dL Progress Note: A&P Assessment and Plan (1) Hyperglycemia: Assessment and Plan: improved with addition of levemir 10 units at night time (2) Acute renal failure: Assessment and Plan: hold metformin, improved with IVF Qualifiers: Acute renal failure type: unspecified Qualified Code(s): N17.9 - Acute kidney failure, unspecified (3) Otitis media: Assessment and Plan: continue cipro drops, oral Augmentin, will add daily flonase. Give dose of Rocephin today. 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 use: without chcf use Diabetes mellitus complication status: with other specified complication Qualified Code(s): E11.69 - Type 2 diabetes mellitus with other specified complication (6) Hypertension: Assessment and Plan: continue coreg, hold lisinopril for elevated potassium Qualifiers: Hypertension type: primary hypertension Qualified Code(s): I10 - Essential (primary) hypertension (7) Hyperlipidemia associated with type 2 diabetes mellitus: Assessment and Plan: continue pravastatin Plan continue lovenox for DVT prophylaxis Patient is a full code Patient is admitted to observation and is not expected to stay more than two midnights
[2023-04-22 15:59] LABS: Glucometer 287 mg/dL (74-106)
[2023-04-22] MEDS: CEFTRIAXONE 1,000 MG in 0.9 % SODIUM CHLORIDE 50 ML 100 MG IV (16:38)
[2023-04-22] MEDS: ENOXAPARIN SODIUM 40 MG/0.4 ML SYRINGE SUBQ (18:18)
[2023-04-22 19:48] VITALS: O2SAT 95
--- NOTE | 2023-04-22 19:48 | RESP.RT ---
No PRN breathing tx given. Pt denies need. No respiratory distress noted.
[2023-04-22 20:42] VITALS: BP 128/71; PULSE 98; RESP 18; TEMP 36.6; O2SAT 93
[2023-04-22 20:46] LABS: Glucometer 214 mg/dL (74-106)
[2023-04-22] MEDS: ATORVASTATIN CALCIUM 10 MG TABLET PO (22:23)
[2023-04-22] MEDS: INSULIN DETEMIR 300 UNIT/3 ML INSULN.PEN 10 UNIT SUBQ (22:25)
[2023-04-23 02:55] LABS: Glucometer 88 mg/dL (74-106)
--- NOTE | 2023-04-23 02:56 | PC.NURSE ---
Solange alerted to low blood sugar. Monitor read 67 for patients blood sugar. Obtained accucheck finger stick and was read at 88. Provided snack and a juice for patient.
[2023-04-23] MEDS: BUPROPION HCL 150 MG SR TABLET 12H PO (05:09)
[2023-04-23] MEDS: CIPROFLOXACIN HCL/DEXAMETH 0.3%/0.1% OTIC SUSP 150 DROP/7.5 ML BOTTLE OT (05:09)
[2023-04-23] MEDS: CARVEDILOL 6.25 MG TABLET PO (05:09)
[2023-04-23 05:22] LABS: Eosinophils Absolute Auto 0.2 10^3/uL (0.0-0.7); Eosinophils Percent Auto 3.6 % (0.9-7.0); Hematocrit 29.9 % (42.0-54.0); Immature Granulocytes Abs Auto 0.05 10^3/uL (0.00-0.03); Immature Granulocytes Pct Auto 1.1 % (0.0-0.5); Lymphocytes Absolute Auto 0.9 10^3/uL (1.2-3.8); Lymphocytes Percent Auto 17.9 % (20.5-60.0); Mean Corpuscular HGB Conc 33.4 g/dL (29.9-35.2); Mean Corpuscular Hemoglobin 29.7 pg (25.9-34.0); Mean Corpuscular Volume 88.7 fL (80.0-94.0); Mean Platelet Volume 10.5 fL (9.5-13.5); Monocytes Absolute Auto 0.3 10^3/uL (0.3-0.8); Monocytes Percent Auto 6.1 % (1.7-12.0); Neutrophils Absolute Auto 3.4 10^3/uL (1.4-6.5); Neutrophils Percent Auto 71.3 % (43.0-75.0); Platelet Count 138 10^3/uL (150-450); Red Blood Count 3.37 10^6/uL (4.70-6.10); Red Cell Distribution Width 13.2 % (11.0-15.0); White Blood Count 4.7 10^3/uL (4.0-11.0)
[2023-04-23 05:31] VITALS: BP 128/71; PULSE 97; RESP 18; TEMP 36.4; O2SAT 92
[2023-04-23 06:09] LABS: Alanine Aminotransferase 30 U/L (16-63); Albumin Globulin Ratio 0.7; Albumin Level 1.9 g/dL (3.4-5.0); Alkaline Phosphatase 64 U/L (46-116); Anion Gap 6.6; Aspartate Amino Transferase 29 U/L (15-37); BUN Creatinine Ratio 23.1; Bilirubin Total 0.3 mg/dL (0.2-1.0); Calcium 7.6 mg/dL (8.5-10.1); Carbon Dioxide 21.8 mmol/L (21.0-32.0); Chloride 107 mmol/L (98-107); Estimated GFR (African America >60 (>=60); Estimated GFR (Non-African Ame >60 (>=60); Globulin 2.8 g/dL; Glucose 218 mg/dL (74-106); Potassium 4.4 mmol/L (3.5-5.1); Sodium 131 mmol/L (136-145); Total Protein 4.7 g/dL (6.4-8.2)
[2023-04-23 07:24] VITALS: BP 125/73; PULSE 87; RESP 16; TEMP 36.6; O2SAT 92
[2023-04-23 07:37] LABS: Glucometer 162 mg/dL (74-106)
--- OUTSIDE RECORDS SUMMARY | 2023-04-23 08:04 | XMS_ITS | CCD ---
Author Name Unknown Address [address] [facility] [address] [facility] [address] [place] [address] Organization [facility] Care Team Providers Care Online Communications Manager Name Role Phone ROSA MARIA DIAZ Unavailable Unavailable ROSA MARIA DIAZ Unavailable Unavailable LAURA SHEA Unavailable Unavailable SHABBIR, DR SANCHEZ Primary Care Unavailable YEIMY MARTINEZ Admitting Unavailable YEIMY MARTINEZ Attending Unavailable Mayuri, DR Corona Consulting Unavailable YEIMY MARTINEZ Consulting Unavailable SHABBIR, DR SANCHEZ Primary Care Unavailable SHAIKH Julia DON Admitting Unavailable SHAIKH Julia DON Attending Unavailable Mayuri, DR Corona Consulting Unavailable JIMMY HUANG Consulting Unavailable YEIMY MARTINEZ Consulting Unavailable SHAIKH Julia DON Consulting Unavailable KLYMAUNDREA Consulting Unavailable DELVIS LUND Consulting Unavailable SHABBIR, DR SANCHEZ Primary Care Unavailable JOHN, DR TAMICA Gardner Admitting Unavailtyler LOPEZ, DR TAMICA Gardner Attending Unavailtyler SMITH, DR ADITHYA Bull Consulting Unavailable JOHN, DR TAMICA Gardner Consulting UnavailIWONA Burton Consulting Unavailable LAURA SHEA Attending Unavailable LAURA SHEA Attending Unavailable Problems Active Problems Problem Classification Problem Date Documented Date Episodic/Chronic Chronic obstructive pulmonary disease and bronchiectasis (2 sources) Chronic obstructive pulmonary disease with (acute) exacerbation; Translations: [Chronic obstructive pulmonary disease, unspecified] Onset: 2 Chronic Coronary atherosclerosis and other heart disease (1 source) Atherosclerotic heart disease of [place] coronary artery without angina pectoris; Translations: [ASHD [place] RESERVATION CA W/O ANGINA PECTORIS] Onset: 3 Chronic Diabetes mellitus with complications (1 source) Type 2 diabetes mellitus with hypoglycemia without coma; Translations: [TYP 2 DM W/HYPOGLYCEMIA W/O COMA] Onset: 3 Chronic Diabetes mellitus without complication (1 source) Type 2 diabetes mellitus without complications; Translations: [TYPE 2 DM WITHOUT COMPLICATIONS] Onset: 2 Chronic Disorders of lipid metabolism (1 source) Pure hypercholesterolemia, unspecified; Translations: [PURE HYPERCHOLESTEROLEMIA UNSPEC] Onset: 3 Chronic Essential hypertension (1 source) Essential (primary) hypertension; Translations: [ESSENTIAL PRIMARY HYPERTENSION] Onset: 3 Chronic Other aftercare (1 source) skilled nursing (current) use of aspirin; Translations: [[facility] CURRENT USE OF ASPIRIN] Onset: 3 Episodic Other aftercare (1 source) Other extermination inspector (current) drug therapy; Translations: [OTH [facility] CURRENT DRUG THERAPY] Onset: 3 Episodic Other aftercare (1 source) extermination inspector (current) use of insulin; Translations: [[facility] CURRENT USE OF INSULIN] Onset: 3 Episodic Other aftercare (1 source) extermination inspector (current) use of oral hypoglycemic drugs; Translations: [[facility] USE ORAL HYPOGLYCEMIC DX] Onset: 3 Episodic Other lower respiratory disease (3 sources) Shortness of breath; Translations: [SHORTNESS OF BREATH] Onset: 2 Episodic Other nervous system disorders (1 source) Other chronic pain; Translations: [OTHER CHRONIC PAIN] Onset: 3 Chronic Substance-related disorders (1 source) Nicotine dependence, cigarettes, uncomplicated; Translations: [NICOTINE DEPEND CIGARETTES UNCOMP] Onset: 3 Chronic Unclassified (1 source) ECTROPION OF LEFT LOWER LID / ECTROPION OF LEFT LOWER LID() Onset: 8 Unclassified (1 source) CONTACT W/AND (SUSP) EXPOS COVID-19; Translations: [CONTACT W/AND (SUSP) EXPOS COVID-19] Onset: 3 Unclassified (1 source) LOW BACK PAIN, UNSPECIFIED; Translations: [LOW BACK PAIN, UNSPECIFIED] Onset: 3 Past or Other Problems Problem Classification Problem Date Documented Da te Episodic/Chronic Conditions associated with dizziness or vertigo (4 sources) Dizziness and giddiness; Translations: [DIZZINESS AND GIDDINESS] Onset: 05-19-2021 Episodic Unclassified (1 source) ECTROPION OF LEFT LOWER LID; Translations: [ECTROPION OF LEFT LOWER LID] Onset: 10-15-2017 Results Test Name Value Interpretation Reference Range Facil ity BNPon 03-24-2022 Natriuretic peptide B (Bld) [Mass/Vol] 752.0 pg/mL Normal <=900.0 [facility] Comment on above: Performed By: #### C MREP #### [facility] [address] [place] [address] Dr. Jh Boudreaux CBC AUTO DIFFon 03-24-2022 BASO # 0.1 103/ul Normal 0.0-0.1 [facility] Comment on above: Performed By: #### C BC #### [facility] [address] [place] [address] Dr. Jh Boudreaux Basophils/100 WBC (Bld) 0.6 % Normal 0.2-2.0 [facility] Comment on above: Performed By: #### C BC #### [facility] [address] [place] [address] Dr. Jh Boudreaux EO # 0.4 103/ul Normal 0.0-0.7 [facility] Comment on above: Performed By: #### C BC #### [facility] [address] [place] [address] Dr. Jh Boudreaux Eosinophils/100 WBC (Bld) 4.5 % Normal 0.9-7.0 [facility] Comment on above: Performed By: #### C BC #### [facility] [address] [place] [address] Dr. Jh Boudreaux Erythrocyte distribution width (RBC) [Ratio] 12.5 % Normal 11.0-15.0 [facility] Comment on above: Performed By: #### C BC #### [facility] [address] [place] [address] Dr. Jh Boudreaux Hematocrit (Bld) [Volume fraction] 38.9 % Critically low 42.0-54.0 [facility] Comment on above: Performed By: #### C BC #### [facility] [address] [place] [address] Dr. Jh Boudreaux Hemoglobin (Bld) [Mass/Vol] 13.3 g/dL Critically low 14.0-18.0 [facility] Comment on above: Performed By: #### C BC #### [facility] [address] [place] [address] Dr. Jh Boudreaux IG # 0.03 10e3/ul Normal 0.00-0.03 [facility] Comment on above: Performed By: #### C BC #### [facility] [address] [place] [address] Dr. Jh Boudreaux IG % 0.4 % Normal 0.0-0.5 [facility] Comment on above: Performed By: #### C BC #### [facility] [address] [place] [address] Dr. Jh Boudreaux LYMPH # 1.4 103/ul Normal 1.2-3.8 [facility] Comment on above: Performed By: #### C BC #### [facility] [address] [place] [address] Dr. Jh Boudreaux Lymphocytes/100 WBC (Bld) 16.9 % Critically low 20.5-60.0 [facility] Comment on above: Performed By: #### C BC #### [facility] [address] [place] [address] Dr. Jh Boudreaux MANUAL DIFF REQ NO Normal [facility] Comment on above: Performed By: #### C BC #### [facility] [address] [place] [address] Dr. Jh Boudreaux MCH (RBC) [Entitic mass] 29.6 pg Normal 25.9-34.0 [facility] Comment on above: Performed By: #### C BC #### [facility] [address] [place] [address] Dr. Jh Boudreaux MCHC (RBC) [Mass/Vol] 34.2 g/dL Normal 29.9-35.2 [facility] Comment on above: Performed By: #### C BC #### [facility] [address] [place] [address] Dr. Jh Buodreaux MCV (RBC) [Entitic vol] 86.6 fL Normal 80.0-94.0 [facility] Comment on above: Performed By: #### C BC #### [facility] [address] [address] [address] Jh Boudreaux MONO # 0.8 103/ul Normal 0.3-0.8 [facility] Comment on above: Performed By: #### C BC #### [facility] [address] [address] [address] Jh Boudreaux Monocytes/100 WBC (Bld) 10.2 % Normal 1.7-12.0 [facility] Comment on above: Performed By: #### C BC #### [facility] [address] [address] [address] Jh Boudreaux NEUT # 5.6 103/ul Normal 1.4-6.5 [facility] Comment on above: Performed By: #### C BC #### [facility] [address] [address] [address] Jh Boudreaux Neutrophils/100 WBC (Bld) 67.4 % Normal 43.0-75.0 [facility] Comment on above: Performed By: #### C BC #### [facility] [address] [address] [address] Jh Boudreaux Platelet mean volume (Bld) [Entitic vol] 9.9 fL Normal 9.5-13.5 [facility] Comment on above: Performed By: #### C BC #### [facility] [address] [address] [address] Jh Boudreaux PLT 182 103/ul Normal 150-450 [facility] Comment on above: Performed By: #### C BC #### [facility] [address] [address] [address] Jh Boudreaux RBC 4.49 106/ul Critically low 4.70-6.10 [facility] Comment on above: Performed By: #### C BC #### [facility] [address] [address] [address] Jh Boudreaux WBC 8.3 103/ul Normal 4.0-11.0 [facility] Comment on above: Performed By: #### C BC #### [facility] [address] [place] [address] Dr. Jh Boudreaux Covid-19 PCR (CVDTB)on 02-25 SARS-CoV-2 (COVID-19) RNA PETER+probe Ql (Unsp spec) Not detected Normal NOT DETECTED [facility] Comment on above: Result Comment: When diagnostic testing is negative, the possibility of a false negative should be considered in the context of a patient's recent exposures and the presence of clinical signs and symptoms consistent with SARS-CoV-2. This test is not yet approved or cleared by the [place] FDA. When there are no FDA-approved or cleared tests available, and other criteria are met, FDA can make tests available under an emergency access mechanism called an Emergency Use Authorization (EUA). The EUA for this test is supported by the [place] of Health and Human Service's declaration that circumstances exist to justify the emergency use of in vitro diagnostics for the detection and/or diagnosis of the virus that causes COVID-19. This EUA will remain in effect for the duration of the COVID-19 declaration justifying emergency of IVDs, unless it is terminated or revoked by the FDA (after which the test may no longer be used). Performed By: #### C VDTBH #### [facility] [address] [place] [address] Dr. Jh Boudreaux INFLUENZA A AND B AGon 03-24 INFLUSIERRA [place] SEE BELOW Normal [facility] Comment on above: Result Comment: Nega tive for Flu A protein angiten. Infection due to Flu A cannot be ruled out. Flu A angiten in the sample may be below the detection limit of the test. Performed By: #### I NFLUAB #### [facility] [address] [place] [address] Dr. Jh Boudreaux INFLUBNEG SEE BELOW Normal [facility] Comment on above: Result Comment: Nega tive for Flu B protein antigen. Infection due to Flu B cannot be ruled out. Flu B antigen in the sample may be below the detection limit of the test. Performed By: #### I NFLUAB #### [facility] [address] [place] [address] Dr. Jh Boudreaux INFLUENZA A AG Negative Normal NEGATIVE SEE COMMENT [facility] Comment on above: Performed By: #### I NFLUAB #### [facility] [address] [address] [address] Jh Boudreaux INFLUENZA B AG Negative Normal NEGATIVE SEE COMMENT [facility] Comment on above: Performed By: #### I NFLUAB #### [facility] [address] [place] [address] Dr. Jh Boudreaux POINT OF CARE GLUCOSEon 12 Glucose [Mass/Vol] 215 mg/dL Critically high 74-[address] [facility] Comment on above: Performed By: #### B DENISE, HSTROPN #### [facility] [address] [place] [address] Dr. Jh Boudreaux PROF CHEM 8 (BAS METB)on Anion gap [Moles/Vol] 12.2 mmol/L Normal [facility] Comment on above: Performed By: #### B DENISE, HSTROPN #### [facility] [address] [place] [address] Dr. Jh Boudreaux Calcium [Mass/Vol] 8.9 mg/dL Normal 8.5-10.1 [facility] Comment on above: Performed By: #### B DENISE, HSTROPN #### [facility] [address] [place] [address] Dr. Jh Boudreaux Chloride [Moles/Vol] 98 mmol/L Normal 98-107 [facility] Comment on above: Performed By: #### B DENISE, HSTROPN #### [facility] [address] [place] [address] Dr. Jh Boudreaux CO2 [Moles/Vol] 27.9 mmol/L Normal 21.0-32.0 [facility] Comment on above: Performed By: #### B DENISE, HSTROPN #### [facility] [address] [place] [address] Dr. Jh Boudreaux Creatinine [Mass/Vol] 1.24 mg/dL Normal 0.70-1.30 [facility] Comment on above: Performed By: #### B DENISE, HSTROPN #### [facility] [address] [address] [address] Jh Boudreaux EGFR-AF UGANDAN >60 Normal >=60 [facility] Comment on above: Performed By: #### B MP, HSTROPN #### [facility] [address] [address] [address] Jh Boudreaux EGFR-NON AF UGANDAN 57 mL/min/1.73m2 Critically low >=60 [facility] Comment on above: Performed By: #### B MP, HSTROPN #### [facility] [address] [address] [address] Jh Boudreaux Glucose [Mass/Vol] 62 mg/dL Critically low 74-106 [facility] Comment on above: Performed By: #### B MP, HSTROPN #### [facility] [address] [address] [address] Jh Boudreaux Potassium [Moles/Vol] 5.1 mmol/L Normal 3.5-5.1 [facility] Comment on above: Performed By: #### B MP, HSTROPN #### [facility] [address] [address] [address] Jh Boudreaux Sodium [Moles/Vol] 133 mmol/L Critically low 136-145 [facility] Comment on above: Performed By: #### B MP, HSTROPN #### [facility] [address] [address] [address] Jh Boudreaux Urea nitrogen [Mass/Vol] 23.0 mg/dL Critically high 7.0-18.0 [facility] Comment on above: Performed By: #### B MP, HSTROPN #### [facility] [address] [address] [address] Jh Boudreaux Urea nitrogen/Creatinine [Mass ratio] 18.5 mg/mg Normal [facility] Comment on above: Performed By: #### B MP, HSTROPN #### [facility] [address] [address] [address] Jh Boudreaux TROPONIN, HIGH SENSITIVITYon 03-24-2022 HSTROP 11.5 pg/mL Normal 4.0-76.1 [facility] Comment on above: Result Comment: CUT- OFF POINTS HAVE BEEN ESTABLISHED BASED ON THE FOURTH UNIVERSAL DEFINITIONS OF MYOCARDIAL INFARCTION. THE UPPER REFERENCE LIMIT (URL) OF TROPONIN, DEFINED THE 99TH PERCENTILE OF cTnI DISTRIBUTION IN A REFERENCE POPULATION, HAS BEEN CONFIRMED THE DECISION THRESHOLD FOR AR DIAGNOSIS. Performed By: #### B MP, HSTROPN #### [facility] [address] [address] [address] Jh Boudreaux XR CHEST 1 Von 03-24-2022 XR CHEST 1 V EXAM: Portable chest REASON FOR EXAM: Shortness of breath with URI symptoms for 3 days. TECHNIQUE: A portable frontal view of the chest was obtained. COMPARISON: 03/26/2021. FINDINGS: The lungs are well-inflated and clear. There are stable chronic changes in both lungs. There are stable calcified granulomata in both lungs. The heart and mediastinum are normal. There is no mass or pathologic adenopathy. Osseous structures are normal. IMPRESSION: No acute cardiopulmonary process. Electronically authenticated by: IWONA WARNER Date: 2022-03-24 18:37 Normal [facility] CARDIAC ADITHYA 3-6on 2 CK [Catalytic activity/Vol] 32 U/L Critically low 55-170 [facility] Comment on above: Performed By: #### C MREP #### [facility] [address] [place] [address] Dr. Jh Boudreaux CK.MB [Mass/Vol] 1.72 ng/mL Normal <=2.[address] [facility] Comment on above: Performed By: #### C MREP #### [facility] [address] [place] [address] Dr. Jh Boudreaux HSTROP 69.6 pg/mL Critically high 4.0-42.2 [facility] Comment on above: Result Comment: CUT- OFF POINTS HAVE BEEN ESTABLISHED BASED ON THE FOURTH UNIVERSAL DEFINITIONS OF MYOCARDIAL INFARCTION. THE UPPER REFERENCE LIMIT (URL) OF TROPONIN, DEFINED THE 99TH PERCENTILE OF cTnI DISTRIBUTION IN A REFERENCE POPULATION, HAS BEEN CONFIRMED THE DECISION THRESHOLD FOR AR DIAGNOSIS. Performed By: #### C MREP #### [facility] [address] [address] [address] Jh Boudreaux CK [Catalytic activity/Vol] 29 U/L Critically low 55-170 [facility] Comment on above: Performed By: #### C MREP #### [facility] [address] [address] [address] Jh Boudreaux CK.MB [Mass/Vol] 1.57 ng/mL Normal <=2.[address] [facility] Comment on above: Performed By: #### C MREP #### [facility] [address] [place] [address] Dr. Jh Boudreaux HSTROP 39.9 pg/mL Normal 4.0-42.2 [facility] Comment on above: Result Comment: CUT- OFF POINTS HAVE BEEN ESTABLISHED BASED ON THE FOURTH UNIVERSAL DEFINITIONS OF MYOCARDIAL INFARCTION. THE UPPER REFERENCE LIMIT (URL) OF TROPONIN, DEFINED THE 99TH PERCENTILE OF cTnI DISTRIBUTION IN A REFERENCE POPULATION, HAS BEEN CONFIRMED THE DECISION THRESHOLD FOR AR DIAGNOSIS. Performed By: #### C MREP #### [facility] [address] [place] [address] Dr. Jh Boudreaux CARDIAC ADITHYA ADMITon 022 CK [Catalytic activity/Vol] 32 U/L Critically low 55-170 [facility] Comment on above: Performed By: #### B DENISE HSTROPN #### [facility] [address] [place] [address] Dr. Jh Boudreaux CK.MB [Mass/Vol] 1.15 ng/mL Normal <=2.[address] [facility] Comment on above: Performed By: #### B DENISE HSTROPN #### [facility] [address] [place] [address] Dr. Jh Boudreaux HSTROP 11.9 pg/mL Normal 4.0-42.2 [facility] Comment on above: Result Comment: CUT- OFF POINTS HAVE BEEN ESTABLISHED BASED ON THE FOURTH UNIVERSAL DEFINITIONS OF MYOCARDIAL INFARCTION. THE UPPER REFERENCE LIMIT (URL) OF TROPONIN, DEFINED THE 99TH PERCENTILE OF cTnI DISTRIBUTION IN A REFERENCE POPULATION, HAS BEEN CONFIRMED THE DECISION THRESHOLD FOR AR DIAGNOSIS. Performed By: #### B DENISE HSTROPN #### [facility] [address] [place] [address] Dr. Jh Boudreaux GENA 25.0 ng/mL Normal <=121.0 [facility] Comment on above: Performed By: #### B SVEN WALKERN #### [facility] [address] [place] [address] Dr. Jh Boudreaux CBC AUTO DIFFon 05-19-2021 BASO # 0.0 103/ul Normal 0.0-0.1 [facility] Comment on above: Performed By: #### C BC #### [facility] [address] [place] [address] Dr. Jh Boudreaux Basophils/100 WBC (Bld) 0.3 % Normal 0.2-2.0 [facility] Comment on above: Performed By: #### C BC #### [facility] [address] [place] [address] Dr. Jh Boudreaux EO # 0.2 103/ul Normal 0.0-0.7 [facility] Comment on above: Performed By: #### C BC #### [facility] [address] [place] [address] Dr. Jh Boudreaux Eosinophils/100 WBC (Bld) 2.0 % Normal 0.9-7.0 [facility] Comment on above: Performed By: #### C BC #### [facility] [address] [place] [address] Dr. Jh Boudreaux Erythrocyte distribution width (RBC) [Ratio] 12.2 % Normal 11.0-15.0 [facility] Comment on above: Performed By: #### C BC #### [facility] [address] [place] [address] Dr. Jh Boudreaux Hematocrit (Bld) [Volume fraction] 33.7 % Critically low 42.0-54.0 [facility] Comment on above: Performed By: #### C BC #### [facility] [address] [place] [address] Dr. Jh Boudreaux Hemoglobin (Bld) [Mass/Vol] 11.8 g/dL Critically low 14.0-18.0 [facility] Comment on above: Performed By: #### C BC #### [facility] [address] [address] [address] Jh Boudreaux IG # 0.04 10e3/ul Critically high 0.00-0.03 [facility] Comment on above: Performed By: #### C BC #### [facility] [address] [address] [address] Jh Boudreaux IG % 0.5 % Normal 0.0-0.5 [facility] Comment on above: Performed By: #### C BC #### [facility] [address] [place] [address] Dr. Jh Boudreaux LYMPH # 1.2 103/ul Normal 1.2-3.8 [facility] Comment on above: Performed By: #### C BC #### [facility] [address] [place] [address] Dr. Jh Boudreaux Lymphocytes/100 WBC (Bld) 15.3 % Critically low 20.5-60.0 [facility] Comment on above: Performed By: #### C BC #### [facility] [address] [place] [address] Dr. Jh Boudreaux MANUAL DIFF REQ NO Normal [facility] Comment on above: Performed By: #### C BC #### [facility] [address] [place] [address] Dr. Jh Boudreaux MCH (RBC) [Entitic mass] 31.6 pg Normal 25.9-34.0 [facility] Comment on above: Performed By: #### C BC #### [facility] [address] [place] [address] Dr. Jh Boudreaux MCHC (RBC) [Mass/Vol] 35.0 g/dL Normal 29.9-35.2 [facility] Comment on above: Performed By: #### C BC #### [facility] [address] [place] [address] Dr. Jh Boudreaux MCV (RBC) [Entitic vol] 90.1 fL Normal 80.0-94.0 [facility] Comment on above: Performed By: #### C BC #### [facility] [address] [address] [address] Jh Boudreaux MONO # 0.5 103/ul Normal 0.3-0.8 [facility] Comment on above: Performed By: #### C BC #### [facility] [address] [address] [address] Jh Boudreaux Monocytes/100 WBC (Bld) 6.3 % Normal 1.7-12.0 [facility] Comment on above: Performed By: #### C BC #### [facility] [address] [address] [address] Jh Boudreaux NEUT # 5.9 103/ul Normal 1.4-6.5 [facility] Comment on above: Performed By: #### C BC #### [facility] [address] [place] [address] Dr. Jh Boudreaux Neutrophils/100 WBC (Bld) 75.6 % Critically high 43.0-75.0 [facility] Comment on above: Performed By: #### C BC #### [facility] [address] [place] [address] Dr. Jh Boudreaux Platelet mean volume (Bld) [Entitic vol] 9.0 fL Critically low 9.5-13.5 [facility] Comment on above: Performed By: #### C BC #### [facility] [address] [place] [address] Dr. Jh Boudreaux PLT 164 103/ul Normal 150-450 [facility] Comment on above: Performed By: #### C BC #### [facility] [address] [address] [address] Jh Boudreaux RBC 3.74 106/ul Critically low 4.70-6.10 [facility] Comment on above: Performed By: #### C BC #### [facility] [address] [place] [address] Dr. Jh Boudreaux WBC 7.8 103/ul Normal 4.0-11.0 [facility] Comment on above: Performed By: #### C BC #### [facility] [address] [place] [address] HEAD WO CONon 05-19-2021 CT HEAD WO CON CT HEAD WO CON: 05/19/2021 3:37 AM EST CLINICAL HISTORY: 70 years old Male with BENIGN PAROXYSMAL VERTIGO, UNSPECIFIED EAR. TECHNIQUE: CT HEAD WO CON was performed without intravenous contrast administration. Axial CT images are obtained as well as sagittal and coronal reformations. Dose reduction techniques were achieved by using automated exposure control and/or adjustment of mA and/or kV according to patient size and/or use of iterative reconstruction technique. COMPARISON: Unavailable. FINDINGS: No intracranial hemorrhage or extra-axial fluid collection is identified. Mild cortical volume loss with prominence of the sulci, ventricles and basal cisterns is seen. Confluent hypoattenuation of the periventricular deep white matter and centrum semiovale is present most compatible with chronic small vessel ischemic disease. The blackman-white matter differentiation is preserved. There is no evidence of focal mass or midline shift. No focal areas of increased attenuation are seen within the cerebral or cerebellar hemispheres. No appreciable scalp soft tissue swelling or depressed skull fractures are seen. Bilateral mastoid effusions are present. Mild mucosal thickening at the inferior frontal sinuses are present. IMPRESSION: 1. No intracranial hemorrhage, mass effect or midline shift. 2. Mild cortical volume loss and chronic small vessel ischemic changes. 3. Bilateral mastoid effusions. Electronically authenticated by: DELVIS LUND Date: 2021-05-19 04:40 Normal [facility] SARS-CoV-2 (COVID-19) RNA PETER+probe Ql (Unsp spec) Not detected Normal NOT DETECTED [facility] Comment on above: Result Comment: When diagnostic testing is negative, the possibility of a false negative should be considered in the context of a patient's recent exposures and the presence of clinical signs and symptoms consistent with SARS-CoV-2. This test is not yet approved or cleared by the [place] Food and Drug Administration (FDA). This test was developed by [employer], [place], [place]. The performance characteristics of this test were validated by [facility]. The results are not intended to be used as the sole means for clinical diagnosis or patient management decisions. The [facility] is authorized under Clinical Laboratory Improvement Amendments (CLIA) to perform high- complexity testing. This test is not yet approved or cleared by the [place] FDA. When there are no FDA-approved or cleared tests available, and other criteria are met, FDA can make tests available under an emergency access mechanism called an Emergency Use Authorization (EUA). The EUA for this test is supported by the [employer] of Health and Human Service's declaration that circumstances exist to justify the emergency use of in vitro diagnostics for the detection and/or diagnosis of the virus that causes COVID-19. This EUA will remain in effect for the duration of the COVID-19 declaration justifying emergency of IVDs, unless it is terminated or revoked by the FDA (after which the test may no longer be used). Performed By: #### B , TROPN #### [facility] [address] [place] [address] Dr. Jh Boudreaux MRI BRAIN WO CONon MRI BRAIN WO CON MRI BRAIN WITHOUT CONTRAST; 05/19/2021 9:46 AM EST Clinical History:dizziness Comparison: None available . SEQUENCES: Per routine unenhanced protocol. STUDY QUALITY: Some motion artifact on several pulse sequences. On this unenhanced examination, there is no distinct evidence of intracranial mass or mass effect. No midline shift. No distinct evidence of acute infarction.. No unexpected paramagnetic substance deposition. There is modest symmetric supratentorial white matter disease. Moderate white matter disease in the brainstem, namely the milady. VESSELS: Signal voids are present in the major intracranial vessels. BRAIN VOLUME: Modest bifrontal and high parietal atrophy VENTRICLES: No hydrocephalus ORBITS: No acute finding SELLA/ SUPRASELLAR: No acute finding at relatively thick sections CP ANGLES: No acute findings at relatively thick sections UPPER CERVICAL: No acute findings PARANASAL SINUSES: Areas of mild mucosal thickening in the ethmoids. MASTOIDS: Moderate T2 signal throughout both mastoids and in the left external canal. Some involvement of the left middle ear cavity as well. CALVARIUM: No acute finding OTHER: None IMPRESSION: 1. No distinct evidence of acute infarction. 2. Supratentorial and infratentorial white matter disease. Does this patient have a long-standing history of hypertension, diabetes, and/or smoking? 3. Mastoids and ear regions as described. This corresponds with CT findings.. Acuity or chronicity unknown. Etiology is unknown. Clinical correlation is needed Electronically authenticated by: AUNDREA ADAM Date: 2021-05-19 12:42 Normal [facility] POINT OF CARE GLUCOSEon 04-27 Glucose [Mass/Vol] 76 mg/dL Normal 74-106 [facility] Comment on above: Performed By: #### B MP, HSTROPN #### [facility] [address] [place] [address] Dr. Jh Boudreaux Glucose [Mass/Vol] 217 mg/dL Critically high 74-[address] [facility] Comment on above: Performed By: #### C MREP #### [facility] [address] [address] [address] Jh Boudreaux PROF CHEM 8 (BAS METB)on Anion gap [Moles/Vol] 11.9 mmol/L Normal [facility] Comment on above: Performed By: #### B MP, HSTROPN #### [facility] [address] [place] [address] Dr. Jh Boudreaux Calcium [Mass/Vol] 8.7 mg/dL Normal 8.4-10.2 [facility] Comment on above: Performed By: #### B MP, HSTROPN #### [facility] [address] [place] [address] Dr. Jh Boudreaux Chloride [Moles/Vol] 101 mmol/L Normal 98-107 [facility] Comment on above: Performed By: #### B MP, HSTROPN #### [facility] [address] [place] [address] Dr. Jh Boudreaux CO2 [Moles/Vol] 25.4 mmol/L Normal 22.0-30.0 [facility] Comment on above: Performed By: #### B MP, HSTROPN #### [facility] [address] [place] [address] Dr. Jh Boudreaux Creatinine [Mass/Vol] 1.11 mg/dL Normal 0.66-1.25 [facility] Comment on above: Performed By: #### B MP, HSTROPN #### [facility] [address] [place] [address] Dr. Jh Boudreaux EGFR-AF UGANDAN >60 Normal >=60 [facility] Comment on above: Performed By: #### B DENISE, HSTROPN #### [facility] [address] [place] [address] Dr. Jh Boudreaux EGFR-NON AF UGANDAN >60 Normal >=60 [facility] Comment on above: Performed By: #### B DENISE, HSTROPN #### [facility] [address] [place] [address] Dr. Jh Boudreaux Glucose [Mass/Vol] 214 mg/dL Critically high 74-[address] [facility] Comment on above: Performed By: #### B DENISE, HSTROPN #### [facility] [address] [place] [address] Dr. Jh Boudreaux Potassium [Moles/Vol] 4.3 mmol/L Normal 3.4-5.0 [facility] Comment on above: Performed By: #### B DENISE HSTROPN #### [facility] [address] [place] [address] Dr. Jh Boudreaux Sodium [Moles/Vol] 134 mmol/L Critically low 137-145 [facility] Comment on above: Performed By: #### B DENISE, HSTROPN #### [facility] [address] [place] [address] Dr. Jh Boudreaux Urea nitrogen [Mass/Vol] 23.0 mg/dL Critically high 9.0-20.0 [facility] Comment on above: Performed By: #### B DENISE HSTROPN #### [facility] [address] [place] [address] Dr. Jh Boudreaux Urea nitrogen/Creatinine [Mass ratio] 20.7 mg/mg Normal [facility] Comment on above: Performed By: #### B DENISE, HSTROPN #### [facility] [address] [place] [address] Dr. Jh Boudreaux XR FOREIGN BODY EYEon 2021 XR FOREIGN BODY EYE EXAMINATION: XR FOREIGN BODY EYE HISTORY: vertigo COMPARISON: No relevant comparison available. FINDINGS: ORBITS: Negative for a metallic foreign body. OTHER: Negative. IMPRESSION: 1. No metallic foreign body within the orbits. Electronically authenticated by: CJ MESSINA Date: 2021-05-19 11:55 Normal [facility] XR CHEST 1 Von 05-04-2021 XR CHEST 1 V This study was read during a downtime in the [employer] PACS system. The actual time dictated and approved is in the body of the report. PROCEDURE: RADIOGRAPH CHEST 1 VIEW COMPARISON: XR CHEST 1 V, 03/26/2021. INDICATIONS: SHORTNESS OF BREATH FINDINGS: LUNGS: Multiple small dense nodules scattered within the lungs favoring calcified granulomas. A 7 mm more subtle opacity within the left upper lobe appears unchanged. No appreciable infiltrates. VASCULATURE: No increased pulmonary vasculature. PLEURA: No pneumothorax, effusion, or pleural thickening. CARDIAC: No cardiomegaly or cardiac silhouette abnormality. MEDIASTINUM: No visible mass or adenopathy. BONES: No fracture or visible bone lesion. OTHER: Negative. CONCLUSION: 1. No acute cardiopulmonary process. Stable chest. 2. Scattered nodules favoring chronic granulomas. Please see CTA chest March 26, 2021. Preliminary findings were provided to the emergency department at time of imaging. Dictated by: Cj Messina M.D. on 05/03/2021 at 14:49 Approved by: Cj Messina M.D. on 05/03/2021 at 14:51 Electronically authenticated by: CJ MESSINA Date: 2021-05-04 16:13 Normal [facility] BNPon 05-03-2021 Natriuretic peptide B (Bld) [Mass/Vol] 1093.0 pg/mL Critically high <=900.0 [facility] Comment on above: Performed By: #### C MP, CMADM, BNP #### [facility] [address] [address] [address] Jh Boudreaux CARDIAC ADITHYA ADMITon 022 CK [Catalytic activity/Vol] 42 U/L Critically low 55-170 [facility] Comment on above: Performed By: #### C MP, CMADM, BNP #### [facility] [address] [address] [address] Jh Boudreaux CK.MB [Mass/Vol] 1.12 ng/mL Normal <=2.[address] [facility] Comment on above: Performed By: #### C MP, CMADM, BNP #### [facility] [address] [address] [address] Jh Boudreaux HSTROP 13.3 pg/mL Normal 4.0-42.2 [facility] Comment on above: Result Comment: CUT- OFF POINTS HAVE BEEN ESTABLISHED BASED ON THE FOURTH UNIVERSAL DEFINITIONS OF MYOCARDIAL INFARCTION. THE UPPER REFERENCE LIMIT (URL) OF TROPONIN, DEFINED THE 99TH PERCENTILE OF cTnI DISTRIBUTION IN A REFERENCE POPULATION, HAS BEEN CONFIRMED THE DECISION THRESHOLD FOR AR DIAGNOSIS. Performed By: #### C MP, CMADM, BNP #### [facility] [address] [address] [address] Jh Boudreaux GENA 38.0 ng/mL Normal <=121.0 [facility] Comment on above: Performed By: #### C MP, CMADM, BNP #### [facility] [address] [place] [address] Dr. Jh Boudreaux CBC AUTO DIFFon 05-03-2021 BASO # 0.0 103/ul Normal 0.0-0.1 [facility] Comment on above: Performed By: #### C MREP #### [facility] [address] [place] [address] Dr. Jh Boudreaux Basophils/100 WBC (Bld) 0.2 % Normal 0.2-2.0 [facility] Comment on above: Performed By: #### C MREP #### [facility] [address] [place] [address] Dr. Jh Boudreaux EO # 0.2 103/ul Normal 0.0-0.7 [facility] Comment on above: Performed By: #### C MREP #### [facility] [address] [place] [address] Dr. Jh Boudreaux Eosinophils/100 WBC (Bld) 2.0 % Normal 0.9-7.0 [facility] Comment on above: Performed By: #### C MREP #### [facility] [address] [place] [address] Dr. Jh Boudreaux Erythrocyte distribution width (RBC) [Ratio] 12.4 % Normal 11.0-15.0 [facility] Comment on above: Performed By: #### C MREP #### [facility] [address] [place] [address] Dr. Jh Boudreaux Hematocrit (Bld) [Volume fraction] 37.6 % Critically low 42.0-54.0 [facility] Comment on above: Performed By: #### C MREP #### [facility] [address] [place] [address] Dr. Jh Boudreaux Hemoglobin (Bld) [Mass/Vol] 13.0 g/dL Critically low 14.0-18.0 [facility] Comment on above: Performed By: #### C MREP #### [facility] [address] [place] [address] Dr. Jh Boudreaux IG # 0.04 10e3/ul Critically high 0.00-0.03 [facility] Comment on above: Performed By: #### C MREP #### [facility] [address] [place] [address] Dr. Jh Boudreaux IG % 0.5 % Normal 0.0-0.5 [facility] Comment on above: Performed By: #### C MREP #### [facility] [address] [place] [address] Dr. Jh Boudreaux LYMPH # 1.3 103/ul Normal 1.2-3.8 [facility] Comment on above: Performed By: #### C MREP #### [facility] [address] [place] [address] Dr. Jh Boudreaux Lymphocytes/100 WBC (Bld) 14.5 % Critically low 20.5-60.0 [facility] Comment on above: Performed By: #### C MREP #### [facility] [address] [place] [address] Dr. Jh Boudreaux MANUAL DIFF REQ NO Normal [facility] Comment on above: Performed By: #### C MREP #### [facility] [address] [place] [address] Dr. Jh Boudreaux MCH (RBC) [Entitic mass] 30.8 pg Normal 25.9-34.0 [facility] Comment on above: Performed By: #### C MREP #### [facility] [address] [place] [address] Dr. Jh Boudreaux MCHC (RBC) [Mass/Vol] 34.6 g/dL Normal 29.9-35.2 [facility] Comment on above: Performed By: #### C MREP #### [facility] [address] [place] [address] Dr. Jh Boudreaux MCV (RBC) [Entitic vol] 89.1 fL Normal 80.0-94.0 [facility] Comment on above: Performed By: #### C MREP #### [facility] [address] [place] [address] Dr. Jh Boudreaux MONO # 0.7 103/ul Normal 0.3-0.8 [facility] Comment on above: Performed By: #### C MREP #### [facility] [address] [place] [address] Dr. Jh Boudreaux Monocytes/100 WBC (Bld) 7.8 % Normal 1.7-12.0 [facility] Comment on above: Performed By: #### C MREP #### [facility] [address] [place] [address] Dr. Jh Boudreaux NEUT # 6.5 103/ul Normal 1.4-6.5 [facility] Comment on above: Performed By: #### C MREP #### [facility] [address] [place] [address] Dr. Jh Boudreaux Neutrophils/100 WBC (Bld) 75.0 % Normal 43.0-75.0 [facility] Comment on above: Performed By: #### C MREP #### [facility] [address] [place] [address] Dr. Jh Boudreaux Platelet mean volume (Bld) [Entitic vol] 9.5 fL Normal 9.5-13.5 [facility] Comment on above: Performed By: #### C MREP #### [facility] [address] [place] [address] Dr. Jh Boudreaux PLT 240 103/ul Normal 150-450 [facility] Comment on above: Performed By: #### C MREP #### [facility] [address] [place] [address] Dr. Jh Boudreaux RBC 4.22 106/ul Critically low 4.70-6.10 [facility] Comment on above: Performed By: #### C MREP #### [facility] [address] [place] [address] Dr. Jh oBudreaux WBC 8.6 103/ul Normal 4.0-11.0 [facility] Comment on above: Performed By: #### C MREP #### [facility] [address] [place] [address] Dr. Jh Boudreaux CULTURE BLOODon 05-03-2021 Microscopic examination of blood, culture Culture Observations: NO GROWTH AT 5 DAYS. Normal [facility] Comment on above: Performed By: #### B MP, HSTROPN #### [facility] [address] [place] [address] Dr. Jh Boudreaux Microscopic examination of blood, culture Culture Observations: NO GROWTH AT 5 DAYS. Normal [facility] Comment on above: Performed By: #### B MP, HSTROPN #### [facility] [address] [place] [address] Dr. Jh Boudreaux Covid-19 PCR (CVDTB)on SARS-CoV-2 (COVID-19) RNA PETER+probe Ql (Unsp spec) Not detected Normal NOT DETECTED [facility] Comment on above: Result Comment: When diagnostic testing is negative, the possibility of a false negative should be considered in the context of a patient's recent exposures and the presence of clinical signs and symptoms consistent with SARS-CoV-2. This test is not yet approved or cleared by the [place] Food and Drug Administration (FDA). This test was developed by [employer], [place], [place]. The performance characteristics of this test were validated by [facility]. The results are not intended to be used as the sole means for clinical diagnosis or patient management decisions. The [facility] is authorized under Clinical Laboratory Improvement Amendments (CLIA) to perform high- complexity testing. This test is not yet approved or cleared by the [place] FDA. When there are no FDA-approved or cleared tests available, and other criteria are met, FDA can make tests available under an emergency access mechanism called an Emergency Use Authorization (EUA). The EUA for this test is supported by the [place] of Health and Human Service's declaration that circumstances exist to justify the emergency use of in vitro diagnostics for the detection and/or diagnosis of the virus that causes COVID-19. This EUA will remain in effect for the duration of the COVID-19 declaration justifying emergency of IVDs, unless it is terminated or revoked by the FDA (after which the test may no longer be used). Performed By: #### C MREP #### [facility] [address] [place] [address] Dr. Jh Boudreaux LACTATE/LACTIC ACIDon 2021 Lactate [Moles/Vol] 1.8 mmol/L Normal 0.7-2.0 [facility] Comment on above: Performed By: #### C MREP #### [facility] [address] [place] [address] Dr. Jh Boudreaux PROF 14(COMP METB)on 022 Albumin [Mass/Vol] 3.8 g/dL Normal 3.5-5.0 [facility] Comment on above: Performed By: #### C MP, CMADM, BNP #### [facility] [address] [place] [address] Dr. Jh Boudreaux Albumin/Globulin [Mass ratio] 1.2 {ratio} Normal [facility] Comment on above: Performed By: #### C MP, CMADM, BNP #### [facility] [address] [place] [address] Dr. Jh Boudreaux ALP [Catalytic activity/Vol] 78 U/L Normal 38-126 [facility] Comment on above: Performed By: #### C MP, CMADM, BNP #### [facility] [address] [place] [address] Dr. Jh Boudreaux ALT [Catalytic activity/Vol] 20 U/L Critically low 21-72 [facility] Comment on above: Performed By: #### C MP, CMADM, BNP #### [facility] [address] [address] [address] Jh Boudreaux Anion gap [Moles/Vol] 13.5 mmol/L Normal [facility] Comment on above: Performed By: #### C MP, CMADM, BNP #### [facility] [address] [address] [address] Jh Boudreaux AST [Catalytic activity/Vol] 19 U/L Normal 17-59 [facility] Comment on above: Performed By: #### C MP, CMADM, BNP #### [facility] [address] [address] [address] Jh Boudreaux Bilirubin [Mass/Vol] 0.8 mg/dL Normal 0.2-1.3 [facility] Comment on above: Performed By: #### C MP, CMADM, BNP #### [facility] [address] [place] [address] Dr. Jh Boudreaux Calcium [Mass/Vol] 9.2 mg/dL Normal 8.4-10.2 [facility] Comment on above: Performed By: #### C MP, CMADM, BNP #### [facility] [address] [address] [address] Jh Boudreaux Chloride [Moles/Vol] 96 mmol/L Critically low 98-107 [facility] Comment on above: Performed By: #### C MP, CMADM, BNP #### [facility] [address] [address] [address] Jh Boudreaux CO2 [Moles/Vol] 26.2 mmol/L Normal 22.0-30.0 [facility] Comment on above: Performed By: #### C MP, CMADM, BNP #### [facility] [address] [address] [address] Jh Boudreaux Creatinine [Mass/Vol] 0.91 mg/dL Normal 0.66-1.25 [facility] Comment on above: Performed By: #### C MP, CMADM, BNP #### [facility] [address] [address] [address] Jh Boudreaux EGFR-AF UGANDAN >60 Normal >=60 [facility] Comment on above: Performed By: #### C MP, CMADM, BNP #### [facility] [address] [place] [address] Dr. Jh Boudreaux EGFR-NON AF UGANDAN >60 Normal >=60 [facility] Comment on above: Performed By: #### C MP, CMADM, BNP #### [facility] [address] [place] [address] Dr. Jh Boudreaux Globulin (S) [Mass/Vol] 3.3 g/dL Normal [facility] Comment on above: Performed By: #### C MP, CMADM, BNP #### [facility] [address] [place] [address] Dr. Jh Boudreaux Glucose [Mass/Vol] 116 mg/dL Critically high 74-[address] [facility] Comment on above: Performed By: #### C MP, CMADM, BNP #### [facility] [address] [place] [address] Dr. Jh Boudreaux Potassium [Moles/Vol] 4.7 mmol/L Normal 3.4-5.0 [facility] Comment on above: Performed By: #### C MP, CMADM, BNP #### [facility] [address] [place] [address] Dr. Jh Boudreaux Protein [Mass/Vol] 7.1 g/dL Normal 6.1-8.2 [facility] Comment on above: Performed By: #### C MP, CMADM, BNP #### [facility] [address] [place] [address] Dr. Jh Boudreaux Sodium [Moles/Vol] 131 mmol/L Critically low 137-145 [facility] Comment on above: Performed By: #### C MP, CMADM, BNP #### [facility] [address] [place] [address] Dr. Jh Boudreaux Urea nitrogen [Mass/Vol] 16.0 mg/dL Normal 9.0-20.0 [facility] Comment on above: Performed By: #### C MP, CMADM, BNP #### [facility] [address] [place], [place] [id number] Dr. Jh oBudreaux Urea nitrogen/Creatinine [Mass ratio] 17.6 mg/mg Normal [facility] Comment on above: Performed By: #### C MP, CMADM, BNP #### [facility] [address] [place] [address] Dr. Jh Boudreaux PROTIMEon 05-03-2021 INR Coag (PPP) [Relative time] 1.01 {INR} Normal [facility] Comment on above: Performed By: #### C MREP #### [facility] [address] [place] [address] Dr. Jh Boudreaux INR GUIDELINES SEE BELOW Normal [facility] Comment on above: Result Comment: NADIRA RED INR: 2.0 - 3.0 CONDITIONS NOT LISTED BELOW 2.5 - 3.5 FOR PROSTHETIC HEART VALVE REPLACEMENT 2.5 - 3.5 RECURRENT THROMBOSIS Performed By: #### C MREP #### [facility] [address] [place] [address] Dr. Jh Boudreaux PT Coag (PPP) [Time] 10.9 s Normal 9.0-11.6 [facility] Comment on above: Performed By: #### C MREP #### [facility] [address] [place] [address] Dr. Jh Boudreaux PTTon 05-03-2021 aPTT Coag (Bld) [Time] 27.1 s Normal 22.3-36.2 [facility] Comment on above: Performed By: #### C MREP #### [facility] [address] [place] [address] Dr. Jh Boudreaux Provider Letteron 10-12-2020 Provider Letter October 12, 2020 October 12, 2020 FREIDA DOUGHERTY [address] [place] [address] FREIDA DOUGHERTY 1950 Dear Mr. Dougherty, We have been trying to reach you with no success. You have an appointment with on 10/19/2020 which will need to be rescheduled since he will be out of the office that day. Please contact the office at the number listed below to get this appointment rescheduled at your earliest convenience. Thank you for your prompt attention to this matter. Sincerely, [facility] [place] [address], [place] [address] [facility] Encounters Encounter Date Encounter Type Care Provider Facility Start: 04-19-2023 End: 04-19-2023 ambulatory LAURA SHEA Not Available Start: 02-06-2023 End: 02-06-2023 ambulatory LAURA SEHA Not Available Start: 03-24-2022 End: 03-24-[address] LAURA SHEA Facility:[facility] Start: 05-19-2021 End: 05-19-[address] LAURA SHEA Facility:[facility] Start: 05-03-2021 End: 05-03-[address] LAURA SHEA Facility:[facility] Start: 10-15-2017 End: 10-15-2017 [facility] Procedures Date Procedure Procedure Detail Performing Clinician Start: 10-15-2017 DISCHARGE PATIENT ROSA MARIA DIAZ Start: 10-15-2017 DIET NPO, NOW ROSA MARIA CLA RK Start: 10-15-2017 FULL CODE ROSA MARIA CLAR K Start: 10-15-2017 INITIATE OXYGEN THER APY PROTOCOL ROSA MARIA DIAZ Start: 10-15-2017 NURSING COMMUNICATION B DEBO DIAZ Start: 10-15-2017 VERIFY INFORMED CONSENT ROSA MARIA DIAZ Payers Date Payer Category Payer Unknown [id number] 1961 Medicare [id number] 1950 Unknown [id number] .. [id number] 1950 Unknown [id number] [id number] 1950 Unknown [id number] [id number] 1950 Unknown [id number] .16.84 [id number] 1950 Unknown [id number] Summary Purpose Family History No Family History Records FoundNo Family History Records FoundNo Family History Records FoundNo Family History Records Found Advance Directives No Advanced Directives Records FoundNo Advanced Directives Records FoundNo Advanced Directives Records FoundNo Advanced Directives Records Found Additional Source Comments (unrecognized sect ion and content) No Status Records FoundNo Status Records FoundNo Status Records FoundNo Status Records Found INFORMATION SOURCE (unrecogn ized section and content) DATE CREATED AUTHOR 10/16/2017 [facility] DATE CREATED AUTHOR AUTHOR'S ORGANIZ ATION 10/20/2020 [facility] DATE CREATED AUTHOR AUTHOR'S ORGANIZ ATION 03/28/2022 [facility] DATE CREATED AUTHOR AUTHOR'S ORGANIZ ATION 04/21/2023 [facility] FOR RECORDS PERTAINING TO PATIENTS WHO ARE OR HAVE BEEN ENROLLED IN A CHEMICAL DEPENDENCY/SUBSTANCEABUSE PROGRAM, SOME INFORMATION MAY BE OMITTED. This clinical summary was aggregated from multiple sources. Caution should be exercised in using it in the provision of clinical care. This summary normalizes information from multiple sources, and as a consequence, information in this document may materially change the coding, format and clinical context of patient data. In addition, data may be omitted in some cases. CLINICAL DECISIONS SHOULD BE BASED ON THE PRIMARY CLINICAL RECORDS. [facility] [employer] provides no warranty or guarantee of the accuracy or completeness of information in this document.
--- OUTSIDE RECORDS SUMMARY | 2023-04-23 08:04 | XMS_ITS | CCD ---
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 Name Role Phone ROSA MARIA DIAZ Unavailable [...] disease (1 source) Atherosclerotic heart disease of [place] coronary artery without angina pectoris; Translations: [ASHD [place] W/O ANGINA PECTORIS] Onset: 3 Chronic [...] Onset: 3 Chronic Other aftercare (1 source) [facility] (current) use of aspirin; Translations: [ASSISTED CURRENT USE OF ASPIRIN] Onset: 3 Episodic Other aftercare (1 source) Other intermediate frame tender (current) drug therapy; Translations: [OTH ASSISTED CURRENT DRUG THERAPY] Onset: 3 Episodic Other aftercare (1 source) 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 Comment on above: Performed By: #### C MREP #### [facility] [address] [place] [address] Dr. Jh Boudreaux CBC AUTO DIFFon 03-24-2022 BASO # 0.1 103/ul Normal 0.0-0.[address] [facility] Comment on above: Performed By: #### C BC #### [facility] [address] [place] [address] Dr. Jh Boudreaux Basophils/100 WBC (Bld) 0.6 % Normal 0.2-2.[address] [facility] Comment on above: Performed By: #### C BC #### [facility] [address] [place] [address] Dr. Jh Boudreaux EO # 0.4 103/ul Normal 0.0-0.[address] [facility] Comment on above: Performed By: #### C BC #### [facility] [address] [place] [address] Dr. Jh Boudreaux Eosinophils/100 WBC (Bld) 4.5 % Normal 0.9-7.[address] [facility] Comment on above: Performed By: #### C BC #### [facility] [address] [place] [address] Dr. Jh Boudreaux Erythrocyte distribution width (RBC) [Ratio] 12.5 % Normal 11.0-15.[address] [facility] Comment on above: Performed By: #### C BC #### [facility] [address] [place] [address] Dr. Jh Boudreaux Hematocrit (Bld) [Volume fraction] 38.9 % Critically low 42.0-54.[address] [facility] Comment on above: Performed By: #### C BC #### [facility] [address] [place] [address] Dr. Jh Boudreaux Hemoglobin (Bld) [Mass/Vol] 13.3 g/dL Critically low 14.0-18.[address] [facility] Comment on above: Performed By: #### C BC #### [facility] [address] [place] [address] Dr. Jh Boudreaux IG # 0.03 10e3/ul Normal 0.00-0.[address] [facility] Comment on above: Performed By: #### C BC #### [facility] [address] [place] [address] Dr. Jh Boudreaux IG % 0.4 % Normal 0.0-0.[address] [facility] Comment on above: Performed By: #### C BC #### [facility] [address] [place] [address] Dr. Jh Boudreaux LYMPH # 1.4 103/ul Normal 1.2-3.[address] [facility] Comment on above: Performed By: #### C BC #### [facility] [address] [place] [address] Dr. Jh Boudreaux Lymphocytes/100 WBC (Bld) 16.9 % Critically low 20.5-60.[address] [facility] Comment on above: Performed By: #### C BC #### [facility] [address] [place] [address] Dr. Jh Boudreaux MANUAL DIFF REQ NO Normal [facility] Comment on above: Performed By: #### C BC #### [facility] [address] [place] [address] Dr. Jh Boudreaux MCH (RBC) [Entitic mass] 29.6 pg Normal 25.9-34.[address] [facility] Comment on above: Performed By: #### C BC #### [facility] [address] [place] [address] Dr. Jh Boudreaux MCHC (RBC) [Mass/Vol] 34.2 g/dL Normal 29.9-35.[address] [facility] Comment on above: Performed By: #### C BC #### [facility] [address] [place] [address] Dr. Jh Boudreaux MCV (RBC) [Entitic vol] 86.6 fL Normal 80.0-94.[address] [facility] Comment on above: Performed By: #### C BC #### [facility] [address] [address] [address] Jh Boudreaux MONO # 0.8 103/ul Normal 0.3-0.[address] [facility] Comment on above: Performed By: #### C BC #### [facility] [address] [address] [address] Jh Boudreaux Monocytes/100 WBC (Bld) 10.2 % Normal 1.7-12.[address] [facility] Comment on above: Performed By: #### C BC #### [facility] [address] [address] [address] Jh Boudreaux NEUT # 5.6 103/ul Normal 1.4-6.[address] [facility] Comment on above: Performed By: #### C BC #### [facility] [address] [address] [address] Jh Boudreaux Neutrophils/100 WBC (Bld) 67.4 % Normal 43.0-75.[address] [facility] Comment on above: Performed By: #### C BC #### [facility] [address] [address] [address] Jh Boudreaux Platelet mean volume (Bld) [Entitic vol] 9.9 fL Normal 9.5-13.[address] [facility] Comment on above: Performed By: #### C BC #### [facility] [address] [address] [address] Jh Boudreaux PLT 182 103/ul Normal 150-450 [facility] Comment on above: Performed By: #### C BC #### [facility] [address] [address] [address] Jh Boudreaux RBC 4.49 106/ul Critically low 4.70-6.[address] [facility] Comment on above: Performed By: #### C BC #### [facility] [address] [address] [address] Jh Boudreaux WBC 8.3 103/ul Normal 4.0-11.0 [facility] Comment on above: Performed By: #### C BC #### [facility] [address] [place] [address] Dr. Jh Boudreaux Covid-19 PCR (CVDTB)on 02-25 SARS-CoV-2 (COVID-19) RNA PETER+probe Ql (Unsp spec) Not detected Normal NOT DETECTED [facility] Comment on above: Result Comment: When diagnostic [...] for this test is supported by the [place] of Health and Human Service's declaration that [...] used). Performed By: #### C VDTBH #### [facility] [address] [place] [address] Dr. Jh Boudreaux INFLUENZA A AND B AGon 03-[facility] BELOW Normal [facility] Comment on above: Result Comment: Nega tive for Flu A protein angiten. Infection due to Flu A cannot be ruled out. Flu A angiten in the sample may be below the detection limit of the test. Performed By: #### I NFLUAB #### [facility] [address] [place] [address] Dr. Jh Boudreaux INFLUBNEG SEE BELOW Normal [facility] Comment on above: Result Comment: Nega tive for Flu B protein antigen. Infection due to Flu B cannot be ruled out. Flu B antigen in the sample may be below the detection limit of the test. Performed By: #### I NFLUAB #### [facility] [address] [place] [address] Dr. Jh Boudreaux INFLUENZA A AG Negative Normal NEGATIVE SEE COMMENT [facility] Comment on above: Performed By: #### I NFLUAB #### [facility] [address] [address] [address] Jh Boudreaux INFLUENZA B AG Negative Normal NEGATIVE SEE COMMENT [facility] Comment on above: Performed By: #### I NFLUAB #### [facility] [address] [place] [address] Dr. Jh Boudreaux POINT OF CARE GLUCOSEon 12 Glucose [Mass/Vol] 215 mg/dL Critically high 74-106 T [facility] Comment on above: Performed By: #### B DENISE, HSTROPN #### [facility] [address] [place] [address] Dr. Jh Boudreaux PROF CHEM 8 (BAS METB)on Anion gap [Moles/Vol] 12.2 mmol/L Normal [facility] Comment on above: Performed By: #### B DENISE, HSTROPN #### [facility] [address] [place] [address] Dr. Jh Boudreaux Calcium [Mass/Vol] 8.9 mg/dL Normal 8.5-10.1 [facility] Comment on above: Performed By: #### B DENISE, HSTROPN #### [facility] [address] [place] [address] Dr. Jh Boudreaux Chloride [Moles/Vol] 98 mmol/L Normal 98-[address] [facility] Comment on above: Performed By: #### B DENISE, HSTROPN #### [facility] [address] [place] [address] Dr. Jh Boudreaux CO2 [Moles/Vol] 27.9 mmol/L Normal 21.0-32.0 [facility] Comment on above: Performed By: #### B DENISE, HSTROPN #### [facility] [address] [place] [address] Dr. Jh Boudreaux Creatinine [Mass/Vol] 1.24 mg/dL Normal 0.70-1.[address] [facility] Comment on above: Performed By: #### B DENISE, HSTROPN #### [facility] [address] [address] [address] Jh Boudreaux EGFR-AF CONGOLESE >60 Normal >=60 [facility] Comment on above: Performed By: #### B MP, HSTROPN #### [facility] [address] [address] [address] Jh Boudreaux EGFR-NON AF [place] 57 mL/min/1.73m2 Critically low >=[address] [facility] Comment on above: Performed By: #### B MP, HSTROPN #### [facility] [address] [address] [address] Jh Boudreaux Glucose [Mass/Vol] 62 mg/dL Critically low 74-106 Th [facility] Comment on above: Performed By: #### B MP, HSTROPN #### [facility] [address] [address] [address] Jh Boudreaux Potassium [Moles/Vol] 5.1 mmol/L Normal 3.5-5.[address] [facility] Comment on above: Performed By: #### B MP, HSTROPN #### [facility] [address] [address] [address] Jh Boudreaux Sodium [Moles/Vol] 133 mmol/L Critically low 136-145 Th [facility] Comment on above: Performed By: #### B MP, HSTROPN #### [facility] [address] [address] [address] Jh Boudreaux Urea nitrogen [Mass/Vol] 23.0 mg/dL Critically high 7.0-18.[address] [facility] Comment on above: Performed By: #### B MP, HSTROPN #### [facility] [address] [address] [address] Jh Boudreaux Urea nitrogen/Creatinine [Mass ratio] 18.5 mg/mg Normal [facility] Comment on above: Performed By: #### B MP, HSTROPN #### [facility] [address] [address] [address] Jh Boudreaux TROPONIN, HIGH SENSITIVITYon 03-24-2022 HSTROP 11.5 pg/mL Normal 4.0-76.1 [facility] Comment on above: Result Comment: CUT- OFF POINTS HAVE BEEN ESTABLISHED BASED ON THE FOURTH UNIVERSAL DEFINITIONS OF MYOCARDIAL INFARCTION. THE UPPER REFERENCE LIMIT (URL) OF TROPONIN, DEFINED THE 99TH PERCENTILE OF cTnI DISTRIBUTION IN A REFERENCE POPULATION, HAS BEEN CONFIRMED THE DECISION THRESHOLD FOR CT DIAGNOSIS. Performed By: #### B MP, HSTROPN #### [facility] [address] [address] [address] Jh Boudreaux XR CHEST 1 Von [...] IWONA WARNER Date: 2022-03-24 18:37 Normal [facility] CARDIAC ADITHYA 3-6on 2 CK [Catalytic activity/Vol] 32 U/L Critically low 55-170 [facility] Comment on above: Performed By: #### C MREP #### [facility] [address] [place] [address] Dr. Jh Boudreaux CK.MB [Mass/Vol] 1.72 ng/mL Normal <=2.37 [facility] Comment on above: Performed By: #### C MREP #### [facility] [address] [place] [address] Dr. Jh Boudreaux HSTROP 69.6 pg/mL Critically high 4.0-42.[address] [facility] Comment on above: Result Comment: CUT- OFF POINTS HAVE BEEN ESTABLISHED BASED ON THE FOURTH UNIVERSAL DEFINITIONS OF MYOCARDIAL INFARCTION. THE UPPER REFERENCE LIMIT (URL) OF TROPONIN, DEFINED THE 99TH PERCENTILE OF cTnI DISTRIBUTION IN A REFERENCE POPULATION, HAS BEEN CONFIRMED THE DECISION THRESHOLD FOR CT DIAGNOSIS. Performed By: #### C MREP #### [facility] [address] [address] [address] Jh Boudreaux CK [Catalytic activity/Vol] 29 U/L Critically low 55-[address] [facility] Comment on above: Performed By: #### C MREP #### [facility] [address] [address] [address] Jh Boudreaux CK.MB [Mass/Vol] 1.57 ng/mL Normal <=2.37 [facility] Comment on above: Performed By: #### C MREP #### [facility] [address] [place] [address] Dr. Jh Boudreaux HSTROP 39.9 pg/mL Normal 4.0-42.2 [facility] Comment on above: Result Comment: CUT- OFF POINTS HAVE BEEN ESTABLISHED BASED ON THE FOURTH UNIVERSAL DEFINITIONS OF MYOCARDIAL INFARCTION. THE UPPER REFERENCE LIMIT (URL) OF TROPONIN, DEFINED THE 99TH PERCENTILE OF cTnI DISTRIBUTION IN A REFERENCE POPULATION, HAS BEEN CONFIRMED THE DECISION THRESHOLD FOR CT DIAGNOSIS. Performed By: #### C MREP #### [facility] [address] [place] [address] Dr. Jh Boudreaux CARDIAC ADITHYA ADMITon 022 CK [Catalytic activity/Vol] 32 U/L Critically low 55-[address] [facility] Comment on above: Performed By: #### B DENISE HSTROPN #### [facility] [address] [place] [address] Dr. Jh Boudreaux CK.MB [Mass/Vol] 1.15 ng/mL Normal <=2.37 [facility] Comment on above: Performed By: #### B DENISE HSTROPN #### [facility] [address] [place] [address] Dr. Jh Boudreaux HSTROP 11.9 pg/mL Normal 4.0-42.2 [facility] Comment on above: Result Comment: CUT- OFF POINTS HAVE BEEN ESTABLISHED BASED ON THE FOURTH UNIVERSAL DEFINITIONS OF MYOCARDIAL INFARCTION. THE UPPER REFERENCE LIMIT (URL) OF TROPONIN, DEFINED THE 99TH PERCENTILE OF cTnI DISTRIBUTION IN A REFERENCE POPULATION, HAS BEEN CONFIRMED THE DECISION THRESHOLD FOR CT DIAGNOSIS. Performed By: #### B DENISE HSTROPN #### [facility] [address] [place] [address] Dr. Jh Boudreaux GENA 25.0 ng/mL Normal <=121.0 [facility] Comment on above: Performed By: #### B SVEN WALKERN #### [facility] [address] [place] [address] Dr. Jh Boudreaux CBC AUTO DIFFon 05-19-2021 BASO # 0.0 103/ul Normal 0.0-0.[address] [facility] Comment on above: Performed By: #### C BC #### [facility] [address] [place] [address] Dr. Jh Boudreaux Basophils/100 WBC (Bld) 0.3 % Normal 0.2-2.0 [facility] Comment on above: Performed By: #### C BC #### [facility] [address] [place] [address] Dr. Jh Boudreaux EO # 0.2 103/ul Normal 0.0-0.7 [facility] Comment on above: Performed By: #### C BC #### [facility] [address] [place] [address] Dr. Jh Boudreaux Eosinophils/100 WBC (Bld) 2.0 % Normal 0.9-7.0 [facility] Comment on above: Performed By: #### C BC #### [facility] [address] [place] [address] Dr. Jh Boudreaux Erythrocyte distribution width (RBC) [Ratio] 12.2 % Normal 11.0-15.0 [facility] Comment on above: Performed By: #### C BC #### [facility] [address] [place] [address] Dr. Jh Boudreaux Hematocrit (Bld) [Volume fraction] 33.7 % Critically low 42.0-54.0 [facility] Comment on above: Performed By: #### C BC #### [facility] [address] [place] [address] Dr. Jh Boudreaux Hemoglobin (Bld) [Mass/Vol] 11.8 g/dL Critically low 14.0-18.0 [facility] Comment on above: Performed By: #### C BC #### [facility] [address] [address] [address] Jh Boudreaux IG # 0.04 10e3/ul Critically high 0.00-0.03 [facility] Comment on above: Performed By: #### C BC #### [facility] [address] [address] [address] Jh Boudreaux IG % 0.5 % Normal 0.0-0.[address] [facility] Comment on above: Performed By: #### C BC #### [facility] [address] [place] [address] Dr. Jh Boudreaux LYMPH # 1.2 103/ul Normal 1.2-3.[address] [facility] Comment on above: Performed By: #### C BC #### [facility] [address] [place] [address] Dr. Jh Boudreaux Lymphocytes/100 WBC (Bld) 15.3 % Critically low 20.5-60.[address] [facility] Comment on above: Performed By: #### C BC #### [facility] [address] [place] [address] Dr. Jh Boudreaux MANUAL DIFF REQ NO Normal [facility] Comment on above: Performed By: #### C BC #### [facility] [address] [place] [address] Dr. Jh Boudreaux MCH (RBC) [Entitic mass] 31.6 pg Normal 25.9-34.[address] [facility] Comment on above: Performed By: #### C BC #### [facility] [address] [place] [address] Dr. Jh Boudreaux MCHC (RBC) [Mass/Vol] 35.0 g/dL Normal 29.9-35.[address] [facility] Comment on above: Performed By: #### C BC #### [facility] [address] [place] [address] Dr. Jh Boudreaux MCV (RBC) [Entitic vol] 90.1 fL Normal 80.0-94.[address] [facility] Comment on above: Performed By: #### C BC #### [facility] [address] [address] [address] Jh Boudreaux MONO # 0.5 103/ul Normal 0.3-0.8 [facility] Comment on above: Performed By: #### C BC #### [facility] [address] [address] [address] Jh Boudreaux Monocytes/100 WBC (Bld) 6.3 % Normal 1.7-12.[address] [facility] Comment on above: Performed By: #### C BC #### [facility] [address] [address] [address] Jh Boudreaux NEUT # 5.9 103/ul Normal 1.4-6.5 [facility] Comment on above: Performed By: #### C BC #### [facility] [address] [place] [address] Dr. Jh Boudreaux Neutrophils/100 WBC (Bld) 75.6 % Critically high 43.0-75.[address] [facility] Comment on above: Performed By: #### C BC #### [facility] [address] [place] [address] Dr. Jh Boudreaux Platelet mean volume (Bld) [Entitic vol] 9.0 fL Critically low 9.5-13.5 [facility] Comment on above: Performed By: #### C BC #### [facility] [address] [place] [address] Dr. Jh Boudreaux PLT 164 103/ul Normal 150-450 [facility] Comment on above: Performed By: #### C BC #### [facility] [address] [address] [address] Jh Boudreaux RBC 3.74 106/ul Critically low 4.70-6.[address] [facility] Comment on above: Performed By: #### C BC #### [facility] [address] [place] [address] Dr. Jh Boudreaux WBC 7.8 103/ul Normal 4.0-11.0 [facility] Comment on above: Performed By: #### C BC #### [facility] [address] [place] [address] HEAD WO CONon [...] DELVIS LUND Date: 2021-05-19 04:40 Normal [facility]27 SARS-CoV-2 (COVID-19) RNA PETER+probe Ql (Unsp spec) Not detected Normal NOT DETECTED [facility] Comment on above: Result Comment: When diagnostic testing is negative, the possibility of a false negative should be considered in the context of a patient's recent exposures and the presence of clinical signs and symptoms consistent with SARS-CoV-2. This test is not yet approved or cleared by the [place] Food and Drug Administration (FDA). This test was developed by [employer], [place], [place]. The performance characteristics of this test were validated by [facility]. The results are not intended to be used as the sole means for clinical diagnosis or patient management decisions. [facility] is authorized under Clinical Laboratory Improvement Amendments [...] for this test is supported by the [employer] of Health and Human Service's declaration that [...] Performed By: #### B , TROPN #### [facility] [address] [place] [address] Dr. Jh Boudreaux MRI BRAIN WO CONon [...] AUNDREA ADAM Date: 2021-05-19 12:42 Normal [facility] POINT OF CARE GLUCOSEon 04-27 Glucose [Mass/Vol] 76 mg/dL Normal 74-106 [facility] Comment on above: Performed By: #### B MP, HSTROPN #### [facility] [address] [place] [address] Dr. Jh Boudreaux Glucose [Mass/Vol] 217 mg/dL Critically high 74-106 T [facility] Comment on above: Performed By: #### C MREP #### [facility] [address] [address] [address] Jh Boudreaux PROF CHEM 8 (BAS METB)on Anion gap [Moles/Vol] 11.9 mmol/L Normal [facility] Comment on above: Performed By: #### B MP, HSTROPN #### [facility] [address] [place] [address] Dr. Jh Boudreaux Calcium [Mass/Vol] 8.7 mg/dL Normal 8.4-10.2 [facility] Comment on above: Performed By: #### B MP, HSTROPN #### [facility] [address] [place] [address] Dr. Jh Boudreaux Chloride [Moles/Vol] 101 mmol/L Normal 98-[address] [facility] Comment on above: Performed By: #### B MP, HSTROPN #### [facility] [address] [place] [address] Dr. Jh Boudreaux CO2 [Moles/Vol] 25.4 mmol/L Normal 22.0-30.0 [facility] Comment on above: Performed By: #### B MP, HSTROPN #### [facility] [address] [place] [address] Dr. Jh Boudreaux Creatinine [Mass/Vol] 1.11 mg/dL Normal 0.66-1.[address] [facility] Comment on above: Performed By: #### B MP, HSTROPN #### [facility] [address] [place] [address] Dr. Jh Boudreaux EGFR-AF CONGOLESE >60 Normal >=60 [facility] Comment on above: Performed By: #### B DENISE, HSTROPN #### [facility] [address] [place] [address] Dr. Jh Boudreaux EGFR-NON AF CONGOLESE >60 Normal >=[address] [facility] Comment on above: Performed By: #### B DENISE, HSTROPN #### [facility] [address] [place] [address] Dr. Jh Boudreaux Glucose [Mass/Vol] 214 mg/dL Critically high 74-106 T [facility] Comment on above: Performed By: #### B DENISE, HSTROPN #### [facility] [address] [place] [address] Dr. Jh Boudreaux Potassium [Moles/Vol] 4.3 mmol/L Normal 3.4-5.[address] [facility] Comment on above: Performed By: #### B DENISE HSTROPN #### [facility] [address] [place] [address] Dr. hJ Boudreaux Sodium [Moles/Vol] 134 mmol/L Critically low 137-145 Th [facility] Comment on above: Performed By: #### B DENISE, HSTROPN #### [facility] [address] [place] [address] Dr. Jh Boudreaux Urea nitrogen [Mass/Vol] 23.0 mg/dL Critically high 9.0-20.[address] [facility] Comment on above: Performed By: #### B DENISE HSTROPN #### [facility] [address] [place] [address] Dr. Jh Boudreaux Urea nitrogen/Creatinine [Mass ratio] 20.7 mg/mg Normal [facility] Comment on above: Performed By: #### B DENISE, HSTROPN #### [facility] [address] [place] [address] Dr. Jh Boudreaux XR FOREIGN BODY EYEon 2021 XR FOREIGN BODY EYE EXAMINATION: XR FOREIGN BODY EYE HISTORY: vertigo COMPARISON: No relevant comparison available. FINDINGS: ORBITS: Negative for a metallic foreign body. OTHER: Negative. IMPRESSION: 1. No metallic foreign body within the orbits. Electronically authenticated by: CJ MESSINA Date: 2021-05-19 11:55 Normal [facility] XR CHEST 1 Von 05-04-2021 XR CHEST 1 V This study was read during a downtime in the [employer] PACS system. The actual time dictated and [...] CJ MESSINA Date: 2021-05-04 16:13 Normal [facility] BNPon 05-03-2021 Natriuretic peptide B (Bld) [Mass/Vol] 1093.0 pg/mL Critically high <=900.0 [facility] Comment on above: Performed By: #### C MP, CMADM, BNP #### [facility] [address] [address] [address] Jh Boudreaux CARDIAC ADITHYA ADMITon 022 CK [Catalytic activity/Vol] 42 U/L Critically low 55-170 [facility] Comment on above: Performed By: #### C MP, CMADM, BNP #### [facility] [address] [address] [address] Jh Boudreaux CK.MB [Mass/Vol] 1.12 ng/mL Normal <=2.37 [facility] Comment on above: Performed By: #### C MP, CMADM, BNP #### [facility] [address] [address] [address] Jh Boudreaux HSTROP 13.3 pg/mL Normal 4.0-42.2 [facility] Comment on above: Result Comment: CUT- OFF POINTS HAVE BEEN ESTABLISHED BASED ON THE FOURTH UNIVERSAL DEFINITIONS OF MYOCARDIAL INFARCTION. THE UPPER REFERENCE LIMIT (URL) OF TROPONIN, DEFINED THE 99TH PERCENTILE OF cTnI DISTRIBUTION IN A REFERENCE POPULATION, HAS BEEN CONFIRMED THE DECISION THRESHOLD FOR CT DIAGNOSIS. Performed By: #### C MP, CMADM, BNP #### [facility] [address] [address] [address] Jh Boudreaux GENA 38.0 ng/mL Normal <=121.[address] [facility] Comment on above: Performed By: #### C MP, CMADM, BNP #### [facility] [address] [place] [address] Dr. Jh Boudreaux CBC AUTO DIFFon 05-03-2021 BASO # 0.0 103/ul Normal 0.0-0.[address] [facility] Comment on above: Performed By: #### C MREP #### [facility] [address] [place] [address] Dr. Jh Boudreaux Basophils/100 WBC (Bld) 0.2 % Normal 0.2-2.[address] [facility] Comment on above: Performed By: #### C MREP #### [facility] [address] [place] [address] Dr. Jh Boudreaux EO # 0.2 103/ul Normal 0.0-0.7 [facility] Comment on above: Performed By: #### C MREP #### [facility] [address] [place] [address] Dr. Jh Boudreaux Eosinophils/100 WBC (Bld) 2.0 % Normal 0.9-7.0 [facility] Comment on above: Performed By: #### C MREP #### [facility] [address] [place] [address] Dr. Jh Boudreaux Erythrocyte distribution width (RBC) [Ratio] 12.4 % Normal 11.0-15.[address] [facility] Comment on above: Performed By: #### C MREP #### [facility] [address] [place] [address] Dr. Jh Boudreaux Hematocrit (Bld) [Volume fraction] 37.6 % Critically low 42.0-54.[address] [facility] Comment on above: Performed By: #### C MREP #### [facility] [address] [place] [address] Dr. Jh Boudreaux Hemoglobin (Bld) [Mass/Vol] 13.0 g/dL Critically low 14.0-18.[address] [facility] Comment on above: Performed By: #### C MREP #### [facility] [address] [place] [address] Dr. Jh Boudreaux IG # 0.04 10e3/ul Critically high 0.00-0.03 [facility] Comment on above: Performed By: #### C MREP #### [facility] [address] [place] [address] Dr. Jh Boudreaux IG % 0.5 % Normal 0.0-0.[address] [facility] Comment on above: Performed By: #### C MREP #### [facility] [address] [place] [address] Dr. Jh Boudreaux LYMPH # 1.3 103/ul Normal 1.2-3.[address] [facility] Comment on above: Performed By: #### C MREP #### [facility] [address] [place] [address] Dr. hJ Boudreaux Lymphocytes/100 WBC (Bld) 14.5 % Critically low 20.5-60.[address] [facility] Comment on above: Performed By: #### C MREP #### [facility] [address] [place] [address] Dr. Jh Boudreaux MANUAL DIFF REQ NO Normal [facility] Comment on above: Performed By: #### C MREP #### [facility] [address] [place] [address] Dr. Jh Boudreaux MCH (RBC) [Entitic mass] 30.8 pg Normal 25.9-34.[address] [facility] Comment on above: Performed By: #### C MREP #### [facility] [address] [place] [address] Dr. Jh Boudreaux MCHC (RBC) [Mass/Vol] 34.6 g/dL Normal 29.9-35.[address] [facility] Comment on above: Performed By: #### C MREP #### [facility] [address] [place] [address] Dr. Jh Boudreaux MCV (RBC) [Entitic vol] 89.1 fL Normal 80.0-94.[address] [facility] Comment on above: Performed By: #### C MREP #### [facility] [address] [place] [address] Dr. Jh Boudreaux MONO # 0.7 103/ul Normal 0.3-0.[address] [facility] Comment on above: Performed By: #### C MREP #### [facility] [address] [place] [address] Dr. Jh Boudreaux Monocytes/100 WBC (Bld) 7.8 % Normal 1.7-12.[address] [facility] Comment on above: Performed By: #### C MREP #### [facility] [address] [place] [address] Dr. Jh Boudreaux NEUT # 6.5 103/ul Normal 1.4-6.[address] [facility] Comment on above: Performed By: #### C MREP #### [facility] [address] [place] [address] Dr. Jh Boudreaux Neutrophils/100 WBC (Bld) 75.0 % Normal 43.0-75.0 [facility] Comment on above: Performed By: #### C MREP #### [facility] [address] [place] [address] Dr. Jh Boudreaux Platelet mean volume (Bld) [Entitic vol] 9.5 fL Normal 9.5-13.[address] [facility] Comment on above: Performed By: #### C MREP #### [facility] [address] [place] [address] Dr. Jh Boudreaux PLT 240 103/ul Normal 150-[address] [facility] Comment on above: Performed By: #### C MREP #### [facility] [address] [place] [address] Dr. Jh Boudreaux RBC 4.22 106/ul Critically low 4.70-6.[address] [facility] Comment on above: Performed By: #### C MREP #### [facility] [address] [place] [address] Dr. Jh Boudreaux WBC 8.6 103/ul Normal 4.0-11.[address] [facility] Comment on above: Performed By: #### C MREP #### [facility] [address] [place] [address] Dr. Jh Boudreaux CULTURE BLOODon 05-03-2021 Microscopic examination of blood, culture Culture Observations: NO GROWTH AT [address] [facility] Comment on above: Performed By: #### B MP, HSTROPN #### [facility] [address] [place] [address] Dr. Jh Boudreaux Microscopic examination of blood, culture Culture Observations: NO GROWTH AT [address] [facility] Comment on above: Performed By: #### B MP, HSTROPN #### [facility] [address] [place] [address] Dr. Jh Boudreaux Covid-19 PCR (CVDTB)on SARS-CoV-2 (COVID-19) RNA PETER+probe Ql (Unsp spec) Not detected Normal NOT DETECTED [facility] Comment on above: Result Comment: When diagnostic testing is negative, the possibility of a false negative should be considered in the context of a patient's recent exposures and the presence of clinical signs and symptoms consistent with SARS-CoV-2. This test is not yet approved or cleared by the [place] Food and Drug Administration (FDA). This test was developed by [employer], [place], [place]. The performance characteristics of this test were validated by [facility]. The results are not intended to be used as the sole means for clinical diagnosis or patient management decisions. [facility] is authorized under Clinical Laboratory Improvement Amendments [...] for this test is supported by the [place] of Health and Human Service's declaration that [...] used). Performed By: #### C MREP #### [facility] [address] [place] [address] Dr. Jh Boudreaux LACTATE/LACTIC ACIDon 2021 Lactate [Moles/Vol] 1.8 mmol/L Normal 0.7-2.0 [facility] Comment on above: Performed By: #### C MREP #### [facility] [address] [place] [address] Dr. Jh Boudreaux PROF 14(COMP METB)on 022 Albumin [Mass/Vol] 3.8 g/dL Normal 3.5-5.0 [facility] Comment on above: Performed By: #### C MP, CMADM, BNP #### [facility] [address] [place] [address] Dr. Jh Boudreaux Albumin/Globulin [Mass ratio] 1.2 {ratio} Normal [facility] Comment on above: Performed By: #### C MP, CMADM, BNP #### [facility] [address] [place] [address] Dr. Jh Boudreaux ALP [Catalytic activity/Vol] 78 U/L Normal 38-[address] [facility] Comment on above: Performed By: #### C MP, CMADM, BNP #### [facility] [address] [place] [address] Dr. Jh Boudreaux ALT [Catalytic activity/Vol] 20 U/L Critically low 21-[address] [facility] Comment on above: Performed By: #### C MP, CMADM, BNP #### [facility] [address] [address] [address] Jh Boudreaux Anion gap [Moles/Vol] 13.5 mmol/L Normal [facility] Comment on above: Performed By: #### C MP, CMADM, BNP #### [facility] [address] [address] [address] Jh Boudreaux AST [Catalytic activity/Vol] 19 U/L Normal 17-59 [facility] Comment on above: Performed By: #### C MP, CMADM, BNP #### [facility] [address] [address] [address] Jh Boudreaux Bilirubin [Mass/Vol] 0.8 mg/dL Normal 0.2-1.[address] [facility] Comment on above: Performed By: #### C MP, CMADM, BNP #### [facility] [address] [place] [address] Dr. Jh Boudreaux Calcium [Mass/Vol] 9.2 mg/dL Normal 8.4-10.2 [facility] Comment on above: Performed By: #### C MP, CMADM, BNP #### [facility] [address] [address] [address] Jh Boudreaux Chloride [Moles/Vol] 96 mmol/L Critically low 98-[address] [facility] Comment on above: Performed By: #### C MP, CMADM, BNP #### [facility] [address] [address] [address] Jh Boudreaux CO2 [Moles/Vol] 26.2 mmol/L Normal 22.0-30.0 [facility] Comment on above: Performed By: #### C MP, CMADM, BNP #### [facility] [address] [address] [address] Jh Boudreaux Creatinine [Mass/Vol] 0.91 mg/dL Normal 0.66-1.[address] [facility] Comment on above: Performed By: #### C MP, CMADM, BNP #### [facility] [address] [address] [address] Jh Boudreaux EGFR-AF CONGOLESE >60 Normal >=60 [facility] Comment on above: Performed By: #### C MP, CMADM, BNP #### [facility] [address] [place] [address] Dr. Jh Boudreaux EGFR-NON AF CONGOLESE >60 Normal >=[address] [facility] Comment on above: Performed By: #### C MP, CMADM, BNP #### [facility] [address] [place] [address] Dr. Jh Boudreaux Globulin (S) [Mass/Vol] 3.3 g/dL Normal [facility] Comment on above: Performed By: #### C MP, CMADM, BNP #### [facility] [address] [place] [address] Dr. Jh Boudreaux Glucose [Mass/Vol] 116 mg/dL Critically high 74-106 [facility] Comment on above: Performed By: #### C MP, CMADM, BNP #### [facility] [address] [place] [address] Dr. Jh Boudreaux Potassium [Moles/Vol] 4.7 mmol/L Normal 3.4-5.[address] [facility] Comment on above: Performed By: #### C MP, CMADM, BNP #### [facility] [address] [place] [address] Dr. Jh Boudreaux Protein [Mass/Vol] 7.1 g/dL Normal 6.1-8.2 [facility] Comment on above: Performed By: #### C MP, CMADM, BNP #### [facility] [address] [place] [address] Dr. Jh Boudreaux Sodium [Moles/Vol] 131 mmol/L Critically low 137-145 Th [facility] Comment on above: Performed By: #### C MP, CMADM, BNP #### [facility] [address] [place] [address] Dr. Jh Boudreaux Urea nitrogen [Mass/Vol] 16.0 mg/dL Normal 9.0-20.[address] [facility] Comment on above: Performed By: #### C MP, CMADM, BNP #### [facility] [address] [place], [place] [id number] Dr. Jh Boudreaux Urea nitrogen/Creatinine [Mass ratio] 17.6 mg/mg Normal [facility] Comment on above: Performed By: #### C MP, CMADM, BNP #### [facility] [address] [place] [address] Dr. Jh Boudreaux PROTIMEon 05-03-2021 INR Coag (PPP) [Relative time] 1.01 {INR} Normal [facility] Comment on above: Performed By: #### C MREP #### [facility] [address] [place] [address] Dr. Jh Boudreaux INR GUIDELINES SEE BELOW Normal [facility] Comment on above: Result Comment: NADIRA RED INR: 2.0 - 3.0 CONDITIONS NOT LISTED BELOW 2.5 - 3.5 FOR PROSTHETIC HEART VALVE REPLACEMENT 2.5 - 3.5 RECURRENT THROMBOSIS Performed By: #### C MREP #### [facility] [address] [place] [address] Dr. Jh Boudreaux PT Coag (PPP) [Time] 10.9 s Normal 9.0-11.6 [facility] Comment on above: Performed By: #### C MREP #### [facility] [address] [place] [address] Dr. Jh Boudreaux PTTon 05-03-2021 aPTT Coag (Bld) [Time] 27.1 s Normal 22.3-36.2 [facility] Comment on above: Performed By: #### C MREP #### [facility] [address] [place] [address] Dr. Jh Boudreaux Provider Letteron 10-12-2020 Provider Letter October 12, 2020 October 12, 2020 FREIDA DOUGHERTY [address] [place] [address] FREIDA DOUGHERTY 1950 Dear Mr. Dougherty, We [...] to this matter. Sincerely, [facility] [address], [place] [address] [facility] Encounters Encounter Date Encounter Type Care Provider Facility Start: 04-19-2023 End: 04-19-2023 ambulatory LAURA SHEA Not Available Start: 02-06-2023 End: 02-06-2023 ambulatory LAURA SHEA Not Available Start: 03-24-2022 End: 03-24-[address] LAURA SHEA Facility:[facility] Start: 05-19-2021 End: 05-19-[address] LAURA SHEA Facility:[facility] Start: 05-03-2021 End: 05-03-[address] LAURA SHEA Facility:[facility] Start: 10-15-2017 End: 10-15-2017 Patient encounter [facility] Procedures Date Procedure Procedure Detail [...] DIAZ Payers Date Payer Category Payer Unknown [id number] 1961 Medicare [id number] 1950 Unknown [id number] .. [id number] 1950 Unknown [id number] .[id number] 1950 Unknown [id number] .[id number] [id number] 1950 Unknown [id number] .[id number] [id number] 1950 Unknown [id number] Summary Purpose Family History No Family History [...] DATE CREATED AUTHOR AUTHOR'S ORGANIZ ATION 10/20/2020 [facility] DATE CREATED AUTHOR AUTHOR'S ORGANIZ ATION 03/28/2022 [facility] DATE CREATED AUTHOR AUTHOR'S ORGANIZ ATION 04/21/2023 [facility] FOR RECORDS PERTAINING TO PATIENTS WHO [...] BE BASED ON THE PRIMARY CLINICAL RECORDS. [facility] [employer] provides no warranty or guarantee of the accuracy or completeness of information in this document.
--- NOTE | 2023-04-23 08:19 | CM.NOTE ---
Medicare Outpatient Observation Notice discussed with pt, pt verbalizes understanding and signs paper. Original given to pt and copy placed on pt's chart.
--- NOTE | 2023-04-23 08:28 | PM.DS1 ---
DS: Providers Provider Date of admission: 04/20/23 17:16 Primary care physician: LAURA SHEA Admitting clinician: Terry Bailey Consults: 04/20/23 Consult to Dietitian Routine Reason For Exam: poor oral intake Reason for consultation: poor oral intake/trouble swallowing, nausea Has provider been notified: No 04/20/23 17:19 Physical Therapy Eval and Treat Routine Reason for consultation: Weakness Attending physician on discharge: Ashley Begum DS: Diagnosis Discharge Diagnosis (1) Hyperglycemia: (2) Acute renal failure: Qualifiers: Acute renal failure type: unspecified Qualified Code(s): N17.9 - Acute kidney failure, unspecified (3) Acute hyperkalemia: (4) Otitis media: Qualifiers: Otitis media type: serous Chronicity: acute Laterality: right Recurrence: non-recurrent Qualified Code(s): H65.01 - Acute serous otitis media, right ear (5) Hypertension: Qualifiers: Hypertension type: primary hypertension Qualified Code(s): I10 - Essential (primary) hypertension (6) Dehydration: (7) Hyperlipidemia associated with type 2 diabetes mellitus: DS: Summary Hospital Course Hospital Course: patient is a very pleasant 72-year-old male with past medical history of hypertension, [id number]-yexqmikua type 2 diabetes, hyperlipidemia, depression, smoker who presented with a several week history of some nausea and vomiting and some hearing loss. He was diagnosed with right otitis media and had been prescribed Augmentin. He was brought to the hospital yesterday for elevated blood sugar, weakness and was found to have an acute kidney injury and some electrolyte abnormalities such as hyperkalemia (6.9). Ha1c was 12.1, he was started on SSI and levemir 10 units at night time. He had only been taking metformin. He reports history of insulin but had been dropping so was taken off of it from PCP. Also given IVF. He was started on Rocephin for his Acute right OM and continued on cipro drops. He continued to improve and at the time of discharge his glucose was 200, potassium 4.4. I will discharge him on Augmentin that he was previously prescribed and ask him to take BID for the remainder of prescription. Also flonase and tessalon perles. He is to start Levemir flextouch 10 units daily. He has close follow up with PCP where they will further assess his needs for insulin and adjust medications. I also encouraged outpatient appointment with ENT for his right otitis media and hearing difficulties. He is to return to the hospital with any worsening or new symptoms. Home with Home health services today. Status at Discharge Functional status at discharge: uses cane/walker Time Spent with Patient Time attestation: Total time spent providing and/or coordinating discharge services: Time spent: greater than 30 minutes Exam Narrative Exam Narrative: General: Patient is alert, and oriented to person, place and time with normal affect, proper hygiene Head: atraumatic, acephalic Eyes: PERRLA, no nystagmus present, conjunctiva clear, no scleral icterus Ears: diminished gross auditory acuity Heart: Normal rate and rhythm, no murmurs/rubs/gallops Lungs: no audible wheezes, crackles and normal breath sounds all lung linares Neuro: CN II-X grossly intact, normal sensation upper and lower extremities Constitutional Vital Signs, click to edit/add: Last Vital Signs Temp 97.8 F 04/23/23 07:24 Pulse 87 04/23/23 07:24 Resp 16 04/23/23 07:24 BP 125/73 04/23/23 07:24 Pulse Ox 92 L 04/23/23 07:24 O2 Del Method Room Air 04/23/23 07:24 DS: Data Data Completed and Pending Labs on day of discharge: Labs from last 24 hours 04/23/23 04/23/23 04/23/23 07:37 04:28 02:54 WBC 4.7 RBC 3.37 L Hgb 10.0 L Hct 29.9 L MCV 88.7 MCH 29.7 MCHC 33.4 RDW 13.2 Plt Count 138 L MPV 10.5 Neut % (Auto) 71.3 Lymph % (Auto) 17.9 L [place] % (Auto) 6.1 Eos % (Auto) 3.6 Baso % (Auto) 0.0 L Neut # (Auto) 3.4 Lymph # (Auto) 0.9 L [place] # (Auto) 0.3 Eos # (Auto) 0.2 Baso # (Auto) 0.0 Abs Immat Gran (auto) 0.05 H Imm/Tot Granulo (auto) 1.1 H Sodium 131 L Potassium 4.4 Chloride 107 Carbon Dioxide 21.8 Anion Gap 6.6 BUN 24.0 H Creatinine 1.04 Est GFR ( Amer) >60 Est GFR (Non-Af Amer) >60 BUN/Creatinine Ratio 23.1 Glucose 218 H Calcium 7.6 L Total Bilirubin 0.3 AST 29 ALT 30 Alkaline Phosphatase 64 Total Protein 4.7 L Albumin 1.9 L Globulin 2.8 Albumin/Globulin Ratio 0.7 POC Glucose 162 H 88 04/22/23 04/22/23 04/22/23 20:40 15:57 11:54 WBC RBC Hgb Hct MCV MCH MCHC RDW Plt Count MPV Neut % (Auto) Lymph % (Auto) [place] % (Auto) Eos % (Auto) Baso % (Auto) Neut # (Auto) Lymph # (Auto) [place] # (Auto) Eos # (Auto) Baso # (Auto) Abs Immat Gran (auto) Imm/Tot Granulo (auto) Sodium Potassium Chloride Carbon Dioxide Anion Gap BUN Creatinine Est GFR ( Amer) Est GFR (Non-Af Amer) BUN/Creatinine Ratio Glucose Calcium Total Bilirubin AST ALT Alkaline Phosphatase Total Protein Albumin Globulin Albumin/Globulin Ratio POC Glucose 214 H 287 H 307 H Discharge Plan Discharge Disposition: Home Health Service Condition: Fair Discharge Medications: New Levemir FlexPen 100 unit/mL (3 mL) Insulin Pen 10 unit subcut QHS 30 Days Qty: 3 0RF benzonatate 100 mg Capsule 200 mg PO Q8H PRN (Reason: Cough) 7 Days Qty: 30 0RF fluticasone propionate 50 mcg/actuation Story,Suspension 2 spray intranasal QD 30 Days Qty: 1 0RF (DME) pen needle, diabetic 31 gauge x 1/6 needle See Rx Instructions .Route Qty: 100 0RF Rx Instructions: As directed Continued albuterol sulfate 2.5 mg /3 mL (0.083 %) solution for nebulization 2.5 mg continuous nebulization Q4H PRN (Reason: bronchospasm) bupropion HCl 150 mg tablet sustained-release 12 hr 150 mg PO Q12H carvedilol 6.25 mg tablet 6.25 mg PO Q12H lisinopril 20 mg tablet 20 mg PO DAILY metformin 1,000 mg tablet 1,000 mg PO BIDWM pravastatin 40 mg tablet 40 mg PO DAILY amoxicillin-pot clavulanate 875-125 mg tablet 1 tab PO Q12H 10 Days Qty: 0 0RF ciprofloxacin-dexamethasone 0.3-0.1 % drops,suspension 4 drp OTIC (EAR) Q12H 10 Days Qty: 0 0RF Discontinued prednisone 10 mg tablet 40 mg PO DAILY Rx Instructions: 10mg , 4 tablets for 4 days then take 30mg for 4 days. Activity: increase activity as tolerated Diet: advance to your usual diet Forms: Portal Instructions Follow Up Appointments: May.01 @ 10:30am with Bernice Azul NP [phone] Discharge location: Home with Home Health services
[2023-04-23] MEDS: INSULIN ASPART 300 UNIT/3 ML PEN SUBQ ×2 (08:41→11:32)
[2023-04-23] MEDS: CEFTRIAXONE 1,000 MG in 0.9 % SODIUM CHLORIDE 50 ML 100 MG IV ×2 (08:45→13:36)
[2023-04-23] MEDS: FLUTICASONE PROPIONATE 50 MCG NASAL SPRAY 2 SPRAY NS (08:47)
[2023-04-23 09:03] VITALS: RESP 16
--- NOTE | 2023-04-23 10:47 | CM.NOTE ---
Rounds made with Dr. Begum, pt will discharge to home today.
[2023-04-23 11:04] VITALS: BP 121/57; PULSE 94; RESP 16; TEMP 36.6; O2SAT 95
[2023-04-23 11:15] LABS: Glucometer 324 mg/dL (74-106)
[2023-04-23 11:20] VITALS: O2SAT 95
--- NOTE | 2023-04-23 12:20 | CM.NOTE ---
Discussed with pt discharge planning and PT recommendations regarding HH services. Pt refuses any HH services, pt states his son lives close and checks on him. Talked with pt about DME and wheeled walker, pt does have a wheeled walker at home. Pt denies any discharge needs.
--- NOTE | 2023-04-23 12:22 | SWNOTE1 ---
See case management note, pt has rolling walker and he refused home health.
[2023-04-23 13:48] VITALS: BP 135/77; PULSE 100; RESP 16; TEMP 36.3; O2SAT 95
--- NOTE | 2023-04-23 14:44 | PC.NURSE ---
catheter tip intact, no complications
--- NOTE | 2023-04-23 14:50 | PC.NURSE ---
Right and left IV removed before discharge - catheter intact, no complications
--- NOTE | 2023-04-24 15:40 | CM.DCFOLLOWU ---
1st attempt. No answer
--- NOTE | 2023-04-25 14:50 | CM.DCFOLLOWU ---
2nd attempt. No answer
--- NOTE | 2023-04-26 15:57 | CM.DCFOLLOWU ---
3rd attempt. No answer
== END 2023-04-23 15:15 | disposition home or self-care (01) | DRG 641 ==
LOC: ER 15:45 → ICU 04-23 08:01 → MS 04-23 08:01
PROVIDERS: Family Medicine; Physician Assistant; Admitting Provider Family Medicine; Emergency Provider Emergency Medicine; PCP Family Medicine; Visit Provider Family Medicine
DX: E87.5 Hyperkalemia (principal); N17.9 Acute kidney failure, unspecified; Z68.1 Body mass index [BMI] 19.9 or less, adult; E86.0 Dehydration; E87.1 Hypo-osmolality and hyponatremia; E11.65 Type 2 diabetes mellitus with hyperglycemia; I10 Essential (primary) hypertension; E78.5 Hyperlipidemia, unspecified; F32.A Depression, unspecified; R63.4 Abnormal weight loss; F17.210 Nicotine dependence, cigarettes, uncomplicated; H91.90 Unspecified hearing loss, unspecified ear; J44.9 Chronic obstructive pulmonary disease, unspecified; Z79.84 Long term (current) use of oral hypoglycemic drugs; Z79.899 Other long term (current) drug therapy; H65.01 Acute serous otitis media, right ear; Z91.128 Patient's intentional underdosing of medication regimen for other reason
CPT/HCPCS: 0202U; 36415; 71046; 74176; 80048; 80053; 81001; 82009; 82948; 83036; 83690; 83880; 84484; 85025; 85610; 85730; 93005; 94640; 96361; 96365; 96366; 96372; 96375; 97161; 97530; 99285; G0378; J0696; J1650; J2405

== ENCOUNTER 2024-09-17 11:43 | Emergency (ER) | payer MEDICARE, SELFPAY ==
[2024-09-17 11:58] VITALS: BP 134/80; PULSE 97; TEMP 36.6; O2SAT 95; BMI 15.8
[2024-09-17 12:12] LABS: Glucometer 327 mg/dL (74-106)
--- NOTE | 2024-09-17 12:15 | ECG_ITS ---
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 Measurements Intervals [place] Rate: 87 P: 81 VT: 204 QRS: 76 QRSD: 76 T: 85 QT: 386 QTc: 430 Interpretive Statements 1100 Sinus rhythm 9110 normal ECG Compared to ECG 04/20/2023 13:28:18 Sinus tachycardia no longer present Electronically Signed On 09-17-2024 20:01:51 EDT by ANGELICA ZAMUDIO M.D.
--- NOTE | 2024-09-17 12:15 | ED.GENADUL1 ---
HPI HPI - General Adult General Chief complaint: Nausea/Vomiting/Diarrhea Stated complaint: NAUSESA/VOMITING Time Seen by Provider: 09/17/24 12:10 Source: patient Mode of arrival: Wheelchair History of Present Illness HPI narrative: 73 male presents for nausea and vomiting, which began yesterday. He states it is not particularly hot in his home. No diarrhea or fever. He states he felt a little bit better today and ate some toast and kept it down but his daughter wanted him to come in and get checked. He does not complain of fever or hematemesis. Related Data Home Medications ?Medication ?Instructions ?Recorded ?Confirmed albuterol sulfate 2.5 mg/3 mL 2.5 mg continuous nebulization Q4H 10/29/22 09/17/24 (0.083 %) solution for nebulization PRN bronchospasm bupropion HCl 150 mg tablet,12 hr 150 mg PO Q12H 10/29/22 09/17/24 sustained-release carvedilol 6.25 mg tablet 6.25 mg PO Q12H 10/29/22 09/17/24 lisinopril 20 mg tablet 20 mg PO DAILY 10/29/22 09/17/24 metformin 1,000 mg tablet 1,000 mg PO BID 10/29/22 09/17/24 pravastatin 40 mg tablet 40 mg PO DAILY 10/29/22 09/17/24 insulin glargine 100 unit/mL (3 8 unit subcut QPM 09/17/24 09/17/24 mL) subcutaneous pen (Lantus Solostar U-100 Insulin) Previous Rx's ?Medication ?Instructions ?Recorded fluticasone propionate 50 2 spray intranasal QD 30 days #1 g 04/23/23 mcg/actuation nasal spray,suspension pen needle, diabetic 31 gauge x #100 ea 04/23/23 1/ ondansetron 4 mg disintegrating 4 mg PO Q6H PRN nausea and 09/17/24 tablet vomiting #20 tabs Allergies Allergy/AdvReac Type Severity Reaction Status Date / Time No Known Drug Allergies Allergy Verified 10/29/22 11:19 Review of Systems ROS Narrative A ten point review of systems is negative except as noted above. [facility] History (Updated 09/17/24 @ 13:53 by Luis Carlos Chris MD) Hyperglycemia ?R73.9 - Hyperglycemia, unspecified (ICD-10) Acute renal failure ?N17.9 - Acute kidney failure, unspecified (ICD-10) Hyponatremia ?E87.1 - Hypo-osmolality and hyponatremia (ICD-10) Hyperkalemia ?E87.5 - Hyperkalemia (ICD-10) Cirrhosis ?K74.60 - Unspecified cirrhosis of liver (ICD-10) Hyperlipidemia associated with type 2 diabetes mellitus ?E11.69 - Type 2 diabetes mellitus with other specified complication (ICD-10) ?E78.5 - Hyperlipidemia, unspecified (ICD-10) Hypertension ?I10 - Essential (primary) hypertension (ICD-10) COPD (chronic obstructive pulmonary disease) ?J44.9 - Chronic obstructive pulmonary disease, unspecified (ICD-10) Otitis media ?H66.90 - Otitis media, unspecified, unspecified ear (ICD-10) Diabetes ?E11.9 - Type 2 diabetes mellitus without complications (ICD-10) Social History Within the past year, how often did you have a drink containing alcohol: never Score interpretation: A score less than 4 is consistent with normal alcohol consumption. Smoking status: Current every day smoker Non-prescribed substance use: denies use Highest level of school completed/degree received: high school graduate Little interest or pleasure in doing things: not at all Feeling down, depressed, or hopeless: not at all Exam Narrative Exam Narrative: Nurses note and vital signs reviewed and patient is not hypoxic. General: The patient appears well and in no apparent distress. Patient is resting comfortably on cart. Skin: Warm, dry, no pallor noted. There is no rash noted. Head: Normocephalic, atraumatic Eye: Normal conjunctiva, no drainage Ears, Nose, Mouth, and Throat: oral mucosa is moist. Nares patent. Cardiovascular: Regular Rate and Rhythm Respiratory: Patient is in no distress, no accessory muscle use, lungs are clear to auscultation, no wheezing, rales or rhonchi Back: non-tender GI: Soft and nondistended and nontender Musculoskeletal: The patient has no evidence of calf tenderness, no pitting edema, symmetrical pulses noted bilaterally Neurological: Awake and alert Psychiatric: Cooperative Constitutional Vital Signs, click to edit/add: Last Vital Signs Temp 97.8 F 09/17/24 11:58 Pulse 97 H 09/17/24 11:58 Resp 20 09/17/24 11:58 BP 134/80 09/17/24 11:58 Pulse Ox 95 09/17/24 11:58 O2 Del Method Room Air 09/17/24 11:58 Course Vital Signs Vital signs: Vital Signs Temperature 97.8 F 09/17/24 11:58 Pulse Rate 97 H 09/17/24 11:58 Respiratory Rate 20 09/17/24 11:58 Blood Pressure 134/80 09/17/24 11:58 Pulse Oximetry 95 09/17/24 11:58 Oxygen Delivery Method Room Air 09/17/24 11:58 Temperature 97.8 F 09/17/24 11:58 Pulse Rate 97 H 09/17/24 11:58 Respiratory Rate 20 09/17/24 11:58 Blood Pressure 134/80 09/17/24 11:58 Pulse Oximetry 95 09/17/24 11:58 Oxygen Delivery Method Room Air 09/17/24 11:58 Medical Decision Making MDM Narrative Medical decision making narrative: Blood is not specific. Potassium mildly elevated. He feels a lot better after being given IV fluids and Zofran. He is now drinking liquids without difficulty and is discharged home with a prescription for Zofran. Treatment diagnosis and follow-up were discussed with the patient and his daughter. Differential Diagnosis Differential Diagnosis: Viral gastroenteritis, dehydration Lab Data Lab results reviewed: Yes I reviewed the patient's lab results Labs: Lab Results 09/17/24 09/17/24 09/17/24 Range/Units 12:09 12:11 13:30 WBC 14.3 H (4.0-11.0) 10^3/uL RBC 4.00 L (4.70-6.10) 10^6/uL Hgb 13.1 L (14.0-18.0) g/dL Hct 37.1 L (42.0-54.0) % MCV 92.8 (80.0-94.0) fL MCH 32.8 (25.9-34.0) pg MCHC 35.3 H (29.9-35.2) g/dL RDW 11.9 (11.0-15.0) % Plt Count 240 (150-450) 10^3/uL MPV 10.1 (9.5-13.5) fL Neut % (Auto) 82.0 H (43.0-75.0) % Lymph % (Auto) 10.9 L (20.5-60.0) % [place] % (Auto) 5.9 (1.7-12.0) % Eos % (Auto) 0.6 L (0.9-7.0) % Baso % (Auto) 0.2 (0.2-2.0) % Neut # (Auto) 11.7 H (1.4-6.5) 10^3/uL Lymph # (Auto) 1.6 (1.2-3.8) 10^3/uL [place] # (Auto) 0.8 (0.3-0.8) 10^3/uL Eos # (Auto) 0.1 (0.0-0.7) 10^3/uL Baso # (Auto) 0.0 (0.0-0.1) 10^3/uL Abs Immat Gran (auto) 0.06 H (0.00-0.03) 10^3/uL Imm/Tot Granulo (auto) 0.4 (0.0-0.5) % Sodium 134 L (136-145) mmol/L Potassium 5.9 H (3.5-5.1) mmol/L Chloride 99 (98-107) mmol/L Carbon Dioxide 26.3 (21.0-32.0) mmol/L Anion Gap 14.6 BUN 34.0 H (7.0-18.0) mg/dL Creatinine 1.57 H (0.70-1.30) mg/dL Est GFR ( Amer) 53 L (>=60 mL/min/1.73m^2) Est GFR (Non-Af Amer) 43 L (>=60 mL/min/1.73m^2) BUN/Creatinine Ratio 21.7 Glucose 325 H (74-106) mg/dL Calcium 9.3 (8.5-10.1) mg/dL Urine Color Yellow (YELLOW) Urine Clarity Clear (CLEAR) Urine pH 5.5 (5.0-9.0) Ur Specific [place] 1.025 (1.005-1.025) Urine Protein Trace (NEG/TRACE) mg/dL Urine Glucose (UA) 250 A (NEGATIVE) mg/dL Urine Ketones 15 A (NEGATIVE) mg/dL Urine Occult Blood Negative (NEGATIVE) Urine Nitrite Negative (NEGATIVE) Urine Bilirubin Negative (NEGATIVE) Urine Urobilinogen 0.2 (0.2-1.0) EU/dL Ur Leukocyte Esterase Negative (NEGATIVE) Urine RBC 0-2 (0-2) #/HPF Urine WBC 0-2 A (NONE SEEN) #/HPF Ur Squamous Epith Cells Few A (NONE/RARE) #/LPF Urine Crystals None seen (None Seen) #/HPF Urine Bacteria Trace A (NONE SEEN) #/HPF Urine Casts Seen A (NONE SEEN) #/LPF Hyaline Casts Few Urine Mucus Small A (NONE SEEN) POC Glucose 327 H (74-106) mg/dL Discharge Plan Discharge Chief Complaint: Nausea/Vomiting/Diarrhea Clinical Impression: Nausea & vomiting Patient Disposition: Home, Self-Care Time of Disposition Decision: 13:53 Condition: Good Mode of Transportation: Private Vehicle Prescriptions / Home Meds: New ondansetron 4 mg tablet,disintegrating 4 mg PO Q6H PRN (Reason: nausea and vomiting) Qty: 20 0RF No Action albuterol sulfate 2.5 mg /3 mL (0.083 %) solution for nebulization 2.5 mg continuous nebulization Q4H PRN (Reason: bronchospasm) bupropion HCl 150 mg tablet sustained-release 12 hr 150 mg PO Q12H carvedilol 6.25 mg tablet 6.25 mg PO Q12H lisinopril 20 mg tablet 20 mg PO DAILY metformin 1,000 mg tablet 1,000 mg PO BID pravastatin 40 mg tablet 40 mg PO DAILY fluticasone propionate 50 mcg/actuation [place],Suspension 2 spray intranasal QD 30 Days Qty: 1 0RF (DME) pen needle, diabetic 31 gauge x 1/6 needle See Rx Instructions .Route Qty: 100 0RF Rx Instructions: As directed insulin glargine [Lantus Solostar U-100 Insulin] 100 unit/mL (3 mL) insulin pen 8 unit subcut QPM Print Language: Yakut Referrals: LAURA SHEA [Primary Care Provider, Family Practice] - 1 week
[2024-09-17] MEDS: ONDANSETRON PF 4 MG/2 ML VIAL IV (12:22)
[2024-09-17 12:23] LABS: Basophils Percent Auto 0.2 % (0.2-2.0); Eosinophils Absolute Auto 0.1 10^3/uL (0.0-0.7); Eosinophils Percent Auto 0.6 % (0.9-7.0); Hematocrit 37.1 % (42.0-54.0); Hemoglobin 13.1 g/dL (14.0-18.0); Immature Granulocytes Abs Auto 0.06 10^3/uL (0.00-0.03); Immature Granulocytes Pct Auto 0.4 % (0.0-0.5); Lymphocytes Absolute Auto 1.6 10^3/uL (1.2-3.8); Lymphocytes Percent Auto 10.9 % (20.5-60.0); Mean Corpuscular HGB Conc 35.3 g/dL (29.9-35.2); Mean Corpuscular Hemoglobin 32.8 pg (25.9-34.0); Mean Corpuscular Volume 92.8 fL (80.0-94.0); Mean Platelet Volume 10.1 fL (9.5-13.5); Monocytes Absolute Auto 0.8 10^3/uL (0.3-0.8); Monocytes Percent Auto 5.9 % (1.7-12.0); Neutrophils Absolute Auto 11.7 10^3/uL (1.4-6.5); Platelet Count 240 10^3/uL (150-450); Red Cell Distribution Width 11.9 % (11.0-15.0); White Blood Count 14.3 10^3/uL (4.0-11.0)
[2024-09-17] MEDS: 0.9 % SODIUM CHLORIDE 1,000 ML 1000 ML IV (12:23)
[2024-09-17 12:35] LABS: Anion Gap 14.6; BUN Creatinine Ratio 21.7; Calcium 9.3 mg/dL (8.5-10.1); Carbon Dioxide 26.3 mmol/L (21.0-32.0); Chloride 99 mmol/L (98-107); Estimated GFR (African America 53 (>=60 mL/min/1.73m^2); Estimated GFR (Non-African Ame 43 (>=60 mL/min/1.73m^2); Glucose 325 mg/dL (74-106); Potassium 5.9 mmol/L (3.5-5.1); Sodium 134 mmol/L (136-145)
[2024-09-17 13:42] LABS: Bilirubin Urine NEGATIVE (NEGATIVE); Blood Urine NEGATIVE (NEGATIVE); Clarity Urine CLEAR (CLEAR); Color Urine YELLOW (YELLOW); Glucose Urine UA 250 mg/dL (NEGATIVE); Ketones Urine 15 mg/dL (NEGATIVE); Leukocyte Esterase Urine NEGATIVE (NEGATIVE); Nitrite Urine NEGATIVE (NEGATIVE); Protein Urine TRACE mg/dL (NEG/TRACE); Specific Gravity Urine 1.025 (1.005-1.025); Urobilinogen Urine 0.2 EU/dL (0.2-1.0); pH Urine 5.5 (5.0-9.0)
[2024-09-17 13:50] LABS: Bacteria Urine TRACE #/HPF (NONE SEEN); RBC Urine 0-2 #/HPF (0-2); WBC Urine 0-2 #/HPF (NONE SEEN)
[2024-09-17 13:51] LABS: Cast Seen? SEEN #/LPF (NONE SEEN); Crystals Seen? None Seen #/HPF (None Seen); Hyaline Casts Urine FEW; Mucus Urine SMALL (NONE SEEN); Squamous Epithelial Cell Urine FEW #/LPF (NONE/RARE)
== END 2024-09-17 14:05 | disposition home or self-care (01) ==
PROVIDERS: Emergency Provider Emergency Medicine; PCP Family Medicine
DX: R11.2 Nausea with vomiting, unspecified (principal); F17.200 Nicotine dependence, unspecified, uncomplicated; E11.9 Type 2 diabetes mellitus without complications; Z79.84 Long term (current) use of oral hypoglycemic drugs
CPT/HCPCS: 36415; 80048; 81001; 82948; 85025; 93005; 96361; 96374; 99285; J2405

== ENCOUNTER 2024-11-26 00:52 | Observation (INO) | payer MEDICARE, SELFPAY ==
--- OUTSIDE RECORDS SUMMARY | 2013-01-09 13:45 | XMS_ITS | Encounter Summary ---
Author Organization [facility] Address [address], [address] [place] [address] Care Team Providers Care Rocket Test Fire Worker Name Role Phone Unavailable Primary Care Provider Unavailabl e Encounter Details Date Type Department Care Team (Late st Contact Info) Description 01/09/2013 1:45 PM EDT Hospital Encounter [facility] Occupational Therapy [address] [place] [address] Ashley López, OT Social History Tobacco Use Types Packs/Day Years Used Date Smoking Tobacco: Former Smokeless Tobacco: Never Alcohol Use Standard Drinks/Week Comments No 0 (1 standard drink = 0.6 oz pur e alcohol) Sex and Gender Information Value Date Recorded Sex Assigned at Not on file Legal Sex Male 11:44 AM EST Gender Identity Not on file Sexual Orientation Not on file documented as of this encounter Progress Notes * Ashley López OT - 01/09/2013 2:56 PM EDT Images from the original note were not included. [facility] Outpatient Occupational Therapy Progress Note Date: 01/09/2013 Referring Practitioner: Dr. Harrell Diagnosis: open wound of fingers OT Visit Information Onset Date: 12/11/12 Total # of Visits Approved: 12 Total # of Visits to Date: 6 No Show: 0 Canceled Appointment: 0 Onset Date: 12/11/12 Total # of Visits Approved: 12 Per Physician Order Total # of Visits to Date: 6 No Show: 0 Canceled Appointment: 0 Objective Right Hand ROM R Long PIP 0-100: 14-100 R Long DIP 0-70: 10-70 R Ring PIP 0-100: 20-100 R Ring DIP 0-70: 0-70 R Little PIP 0-100: 10-100 R Little DIP 0-70: 0-70 RUE Edema - Circumference (cm) R Index PIP: 6.8 CM R Middle PIP: 7.6 CM R Ring PIP: 7.4 CM R Little PIP: 6.3 CM LUE Edema - Circumference (cm) L Index PIP: 6.5 CM L Middle PIP: 6.3 CM L Ring PIP: 6.3 CM L Little PIP: 5.5 CM 9 hole peg test: 20 seconds Assessment 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 Issued finger sleeves for edema control, encouraged topurchase a compression glove. Extension of digits 3-5 has improved, still working towards full extension. Able to form full active fist and touch thumb to each finger. Wounds healing well, new skin forming around all incisions. Will continue to progress as able. Plan Plan: Continue with current plan Goals Short term goals Time Frame for Short term goals: 1 week Short term goal 1: Pt to be independent with home program.- [facility] goals Time Frame for [facility] goals : 12 visits moth exterminator goal 1: Pt to produce full active fist.- [facility] goal 2: Pt to complete 9 hole peg test in 19 seconds or less using R hand. moth exterminator goal 3: Pt to touch thumb to tips of each finger without difficulty.- MET moth exterminator goal 4: Pt to extend digits 3-5 of R hand to neutral at all joints. Time In: 1345 Time Out: 1430 Timed Code Treatment Minutes: 45 Minutes Total Treatment Time: 45 Ashley López [employer] [facility] License Number: [id number]/L Date: 01/09/2013 * Ashley López OT - 01/09/2013 2:54 PM EDT Images from the original note were not included. [facility] Outpatient Occupational Therapy Daily Note Date: 01/09/2013 Referring Practitioner: Dr. Harrell Diagnosis: open wound of fingers OT Visit Information Onset Date: 12/11/12 Total # of Visits Approved: 12 Total # of Visits to Date: 6 No Show: 0 Canceled Appointment: 0 Onset Date: 12/11/12 Total # of Visits Approved: 12 Per Physician Order Total # of Visits to Date: 6 No Show: 0 Canceled Appointment: 0 Pre-Treament Pain: Subjective: Pt reports next doctor appointment SundayJanuary 10. Objective Right Hand ROM R Long PIP 0-100: 14-100 R Long DIP 0-70: 10-70 R Ring PIP 0-100: 20-100 R Ring DIP 0-70: 0-70 R Little PIP 0-100: 10-100 R Little DIP 0-70: 0-70 RUE Edema - Circumference (cm) R Index PIP: 6.7 cm R Middle PIP: 7.4 cm R Ring PIP: 7.4 cm R Little PIP: 6.2 cm Exercises/Modalities: See DocFlow Sheet Assessment Comments: Tolerated exercises well on this date. Decrease in edema middle finger PIP with use of finger sleeve. Pt given additonal finger sleeve for ring finger. Measured for compression glove, encouraged to order glove. Next docotor appointment tomorrow 01-10-13. Rehab Potential: Good Plan Plan: Continue with current plan Post Treatment Pain: Pain at present: 0 Goals Short Term Goals Short term goal 1: Pt to be independent with home program.- [facility] Furnace Installer Helper Goals moth exterminator goal 1: Pt to produce full active fist.- MET moth exterminator goal 2: Pt to complete 9 hole peg test in 19 seconds or less using R hand. [facility] goal 3: Pt to touch thumb to tips of each finger without difficulty.- [facility] goal 4: Pt to extend digits 3-5 of R hand to neutral at all joints. Time In: 1345 Time Out: 1430 Timed Code Treatment Minutes: 45 Minutes Total Treatment Time: 45 Ashley [facility] License Number: [id number]/L Date: 01/09/2013 documented in this encounter Plan of Treatment Not on file documented as of this encounter Visit Diagnoses Not on filedocumented in this encounter
--- OUTSIDE RECORDS SUMMARY | 2013-01-09 13:45 | XMS_ITS | Encounter Summary ---
Author Organization [facility] Address [address], [address] [place] [address] Care Team Providers Care Custom Furrier Name Role Phone Unavailable Primary Care Provider Unavailabl e Encounter Details Date Type Department Care Team (Late st Contact Info) Description 01/09/2013 1:45 PM EDT Hospital Encounter [facility] Occupational Therapy [address] [place] [address] Ashley López, OT Social History Tobacco Use [...] from the original note were not included. 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 Issued finger sleeves [...] to be independent with home program.- [facility] nursing home goals Time Frame for nursing home goals : 12 visits terminal gauger supervisor goal 1: Pt to produce full active fist.- MET nursing home goal 2: Pt to complete 9 hole peg test in 19 seconds or less using R hand. terminal gauger supervisor goal 3: Pt to touch thumb to tips of each finger without difficulty.- MET terminal gauger supervisor goal 4: Pt to extend digits 3-5 of R hand to neutral at all joints. Time In: 1345 Time Out: 1430 Timed Code Treatment Minutes: 45 Minutes Total Treatment Time: 45 Ashley López [employer] [facility] License Number: [id number]/L Date: 01/09/2013 * Ashley López OT - 01/09/2013 2:54 PM EDT Images from the original note were not included. [facility] Outpatient Occupational Therapy Daily Note Date: 01/09/2013 [...] to be independent with home program.- [facility] File Conversion Operator Goals terminal gauger supervisor goal 1: Pt to produce full active fist.- MET terminal gauger supervisor goal 2: Pt to complete 9 hole peg test in 19 seconds or less using R hand. nursing home goal 3: Pt to touch thumb to tips of each finger without difficulty.- MET nursing home goal 4: Pt to extend digits 3-5 [...]
--- OUTSIDE RECORDS SUMMARY | 2013-02-26 17:30 | XMS_ITS | Encounter Summary ---
Author Organization [facility] Address [address], [address] [place] [address] Care Team Providers Care Equity Manager Name Role Phone Unavailable Primary Care Provider Unavailabl e Encounter Details Date Type Department Care Team (Late st Contact Info) Description 02/26/2013 4:30 PM EST Hospital Encounter [facility] Occupational Therapy [address] [place] [address] Ashley López, OT Social History Tobacco Use [...] Progress Notes * Ashley López OT - 02/27/2013 10:32 AM EST Images from the original note were not included. [facility] Outpatient Occupational Therapy Daily Note Date: 02/27/2013 OT Visit Information Total # of Visits Approved: 12 Total # of Visits to Date: 2 No Show: 0 Total # of Visits Approved: 12 Per Physician Order Total # of Visits to Date: 2 No Show: 0 Pre-Treament Pain: 0/10 Objective Exercises/Modalities: See DocFlow Sheet Assessment Comments: Planned to fabricated resting hand splint for increased finger extension. Pt presented with increased stiffness in digits 3-5 of R hand, did not feel patient would benefit from static splint. Measured for possible dynamic splint, will order finger based dynamic extension splint and fit patient for splint when it arrives. Plan Plan: Continue with current plan Post Treatment Pain: Pain at present: 0 Goals Field Service Tech Goals terminal worker goal 1: Pt to extend digits 3-5 of R hand to neutral at all joints Time In: 1630 Time Out: 1700 Timed Code Treatment Minutes: 0 Minutes Total Treatment Time: 30 Ashley [facility] License Number: OTR/L Date: 02/27/2013 documented in this encounter Plan of Treatment Not on file documented as of this encounter Visit Diagnoses Not on filedocumented in this encounter
--- OUTSIDE RECORDS SUMMARY | 2013-02-26 17:30 | XMS_ITS | Encounter Summary ---
Author Organization [facility] Address [address], [address] [place] [address] Care Team Providers Care Disability Program Navigator Name Role Phone Unavailable Primary Care Provider Unavailabl e Encounter Details Date Type Department Care Team (Late st Contact Info) Description 02/26/2013 4:30 PM EST Hospital Encounter [facility] Occupational Therapy [address] [place] [address] Ashley López, OT Social History Tobacco Use [...] from the original note were not included. 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
--- OUTSIDE RECORDS SUMMARY | 2013-07-02 15:45 | XMS_ITS | Encounter Summary ---
Author Organization [facility] Address [address], [address] [place] [address] Care Team Providers Care Touch Up Edger Name Role Phone Unavailable Primary Care Provider Unavailabl e Encounter Details Date Type Department Care Team (Late st Contact Info) Description 07/02/2013 3:45 PM EDT Hospital Encounter [facility] Occupational Therapy [address] [place] [address] Ashley López, OT Social History Tobacco Use [...] Progress Notes * Ashley López OT - 07/03/2013 7:45 AM EDT Images from the original note were not included. [facility] Outpatient Occupational Therapy Daily Note Date: 07/03/2013 Referring Practitioner: Dr. Harrell Diagnosis: open wound of fingers OT Visit Information Onset Date: 12/11/12 Onset Date: 12/11/12 Per Physician Order Assessment Comments: Pt issued prefabricated dynamic extension splint for middle and ring finger of R hand. Patient educated on splint wearing principles. Instructed to wear brace for approx 1 hour to determineany red areas, or areas of too much pressure. Pt instructed to remove splint immediately if it appears to be cutting off circulation. Pt verbalizes understanding. Plan to follow up in one week to determine any changes in fingers. Time In: 1630 Time Out: 1645 Timed Code Treatment Minutes: 15 Minutes Total Treatment Time: 15 Ashley Hammond License Number: OTR/L Date: 07/03/2013 documented in this encounter Plan of Treatment Not on file documented as of this encounter Visit Diagnoses Not on filedocumented in this encounter
--- OUTSIDE RECORDS SUMMARY | 2013-07-02 15:45 | XMS_ITS | Encounter Summary ---
Author Organization [facility] Address [address], [address] [place] [address] Care Team Providers Care Interpersonal Communications Professor Name Role Phone Unavailable Primary Care Provider Unavailabl e Encounter Details Date Type Department Care Team (Late st Contact Info) Description 07/02/2013 3:45 PM EDT Hospital Encounter [facility] Occupational Therapy [address] [place] [address] Ashley López, OT Social History Tobacco Use [...] from the original note were not included. [facility] Outpatient Occupational Therapy Daily Note Date: 07/03/2013 [...]
--- OUTSIDE RECORDS SUMMARY | 2013-07-09 16:00 | XMS_ITS | Encounter Summary ---
Author Organization [facility] Address [address], [address] [place] [address] Care Team Providers Care Waste And Batting Waste Chopper Name Role Phone Unavailable Primary Care Provider Unavailabl e Encounter Details Date Type Department Care Team (Late st Contact Info) Description 07/09/2013 4:00 PM EDT Hospital Encounter [facility] Occupational Therapy [address] [place] [address] Ashley López, OT Social History Tobacco Use [...] Progress Notes * Ashley López OT - 07/09/2013 2:27 PM EDT Images from the original note were not included. [facility] Outpatient Occupational Therapy Daily Note Date: 07/10/2013 Referring Practitioner: Dr. Harrell Diagnosis: open wound of fingers Exercises/Modalities: See DocFlow Sheet Assessment Comments: Pt presented with discomfort from dynamic extension splint due to ill fitting device. Placed padding at the base of the appliance for greater comfort and reduced the size of the side pannels. Patient reported splints were much more comfortable. Re-educated on splint wearing principles. Ptinstructed to call therapist with any concerns. Will call patient as necessary to follow up. Rehab Potential: Good Time In: 1630 Time Out: 1645 Timed Code Treatment Minutes: 15 Minutes Total Treatment Time: 15 Aslhey Forde [facility] License Number: OTR/L Date: 07/09/2013 documented in this encounter Plan of Treatment Not on file documented as of this encounter Visit Diagnoses Not on filedocumented in this encounter
--- OUTSIDE RECORDS SUMMARY | 2013-07-09 16:00 | XMS_ITS | Encounter Summary ---
Author Organization [facility] Address [address], [address] [place] [address] Care Team Providers Care Counter Intelligence Agent Name Role Phone Unavailable Primary Care Provider Unavailabl e Encounter Details Date Type Department Care Team (Late st Contact Info) Description 07/09/2013 4:00 PM EDT Hospital Encounter [facility] Occupational Therapy [address] [place] [address] Ashley López, OT Social History Tobacco Use [...] from the original note were not included. [facility] Outpatient Occupational Therapy Daily Note Date: [...] 15 Minutes Total Treatment Time: 15 Ashley Forde [facility] License Number: OTR/L Date: 07/09/2013 documented in this encounter Plan of Treatment Not on file documented as of this encounter Visit Diagnoses Not on filedocumented in this encounter
--- OUTSIDE RECORDS SUMMARY | 2013-08-05 15:45 | XMS_ITS | Encounter Summary ---
Author Organization [facility] Address [address] [place] [address] Care Team Providers Care Criminal Court Judge Name Role Phone Unavailable Primary Care Provider Unavailabl e Encounter Details Date Type Department Care Team (Late st Contact Info) Description 08/05/2013 3:45 PM EDT Hospital Encounter [facility] Occupational Therapy [address] [place] [address] Ashley López, OT Social History Tobacco Use [...] on file documented as of this encounter Plan of Treatment Not on file documented as of this encounter Visit Diagnoses Not on filedocumented in this encounter
--- OUTSIDE RECORDS SUMMARY | 2013-08-05 15:45 | XMS_ITS | Encounter Summary ---
Author Organization [facility] Address [facility], [address] [place] [address] Care Team Providers Care Delivery And Mail Sorter Name Role Phone Unavailable Primary Care Provider Unavailabl e Encounter Details Date Type Department Care Team (Late st Contact Info) Description 08/05/2013 3:45 PM EDT Hospital Encounter [facility] Occupational Therapy [address] [place] [address] Ashley López, OT Social History Tobacco Use [...]
--- OUTSIDE RECORDS SUMMARY | 2024-11-25 10:30 | XMS_ITS | Encounter Summary ---
Author Organization [facility] Healthcare Address [address] [place] [address] Care Team Providers Care [employer] Name Role Phone Alda Osborne MD Primary Care Provider Reason for Referral * Consultation (Routine) - Authorized Specialty Diagnoses / Procedures Referred By Torres gamino Referred To Contact Urology Diagnoses Elevated PSA Procedures ME OFFICE/OUTPATIENT [facility] 60 MINUTES Alda Osborne MD [address] [facility] [address] [place] [address] Phone: tel: fax: Tran Chew MD [address] [place] [phone] Phone: tel: fax: Referral ID Status Reason Start Date Expiration Date Visits Requested Visits Authorized [id number] Authorized Specialty Services Required 11/25/2024 05/24/2025 1 1 * Consultation (Routine) - Pending Review Specialty Diagnoses / Procedures Referred By Torres gamino Referred To Contact General Surgery Diagnoses Inguinal hernia of left side without obstruction or gangrene Procedures ME OFFICE/OUTPATIENT [facility] 60 MINUTES Alda Osborne MD [address] [facility] [address] [place] [address] Phone: tel: fax: Prabhakar Carmona MD [address] [address] Phone: tel: fax: Referral ID Status Reason Start Date Expiration Date Visits Requested Visits Authorized [id number] Pending Review Specialty Services Required 11/25/2024 05/24/2025 1 1 Reason for Visit * Reason Comments Hypertension Encounter Details Date Type Department Care Team (Late st Contact Info) Description 11/25/2024 10:30 AM EDT Office Visit [facility] [address] [facility] [address] [place] [address] Alda Osborne MD [address] [facility] [address] [place] [address] Inguinal hernia of left side without obstruction or gangrene (Primary Dx); Primary insomnia; Elevated PSA Social History Tobacco Use Types Packs/Day Years Used Date Smoking Tobacco: Every Day Cigarettes Smokeless Tobacco: Never Comments:6-10 cigarettes/day Alcohol Use Standard Drinks/Week Comments Not Currently 0 (1 standard drink = 0.6 oz pur e alcohol) caffeine: chocolate Humiliation, Afraid, Rape, and Kick questionnair e Answer Date Recorded Within the last year, have y ou been afraid of your partner or ex-partner? No 01/25/2023 Within the last year, have y ou been humiliated or emotionally abused in other ways by your partner or ex-partner? No Within the last year, have y ou been kicked, hit, slapped, or otherwise physically hurt by your partner or ex-partner? No 01/25/2023 Within the last year, have y ou been raped or forced to have any kind of sexual activity by your partner or ex-partner? No 01/25/2023 Social Connection and Isolation Panel [NHANES] A nswer Date Recorded In a typical week, how many times do you talk on the phone with family, friends, or neighbors? Three times a week 01/25/2023 How often do you get togethe r with friends or relatives? Three times a week 01/25/2023 How often do you attend chur ch or synagogue services? Never 01/25/2023 Do you belong to any clubs o r organizations such as latter day groups, unions, fraternal or athletic groups, or school groups? No 01/25/2023 How often do you attend meet ings of the clubs or organizations you belong to? Never 01/25/2023 Are you , , di vorced, , never , or living with a partner? 01/25/2023 AUDIT-C Answer Date Recorded Q1: How often do you have a drink containing alcohol? Never 01/25/2023 Q2: How many drinks containi ng alcohol do you have on a typical day when you are drinking? Patient does not drink Q3: How often do you have si x or more drinks on one occasion? Never 01/25/2023 Overall Financial Resource Strain (CARDIA) Answe r Date Recorded How hard is it for you to pa y for the very basics like food, housing, medical care, and heating? Not hard at all 01/25/2023 PHQ-2 Answer Date Recorded Patient Health Questionnaire-2 Score 0 11/25/2024 [facility] - Occupational Stress Questionnaire Answer Date Recorded Do you feel stress - tense, restless, nervous, or anxious, or unable to sleep at night because your mind is troubled all the time - these days? Only a little 01/25/2023 Exercise Vital Sign Answer Date Recorde d On average, how many days pe r week do you engage in moderate to strenuous exercise (like a brisk walk)? 7 days 01/25/2023 On average, how many minutes do you engage in exercise at this level? 10 min 01/25/2023 Hunger Vital Sign Answer Date Recorded Within the past 12 months, y ou worried that your food would run out before you got the money to buy more. Never true 01/26/20 23 Within the past 12 months, t he food you bought just didn't last and you didn't have money to get more. Never true 01/25/2023 PRAPARE - Transportation Answer Date Re corded In the past 12 months, has l ack of transportation kept you from medical appointments or from getting medications? No 04/2022 In the past 12 months, has l ack of transportation kept you from meetings, work, or from getting things needed for daily living? No 01/25/2023 Housing Stability Vital Sign Answer Rigo e Recorded In the last 12 months, was t here a time when you were not able to pay the mortgage or rent on time? No 01/25/2023 In the last 12 months, how many places have you lived? 1 01/25/2023 In the last 12 months, was t here a time when you did not have a steady place to sleep or slept in a alf (including now)? No 01/25/2023 Sex and Gender Information Value Date Recorded Sex Assigned at Not on file Legal Sex Male 6:46 PM EDT Gender Identity Not on file Sexual Orientation Not on file documented as of this encounter Last Filed Vital Signs Vital Sign Reading Time Taken Comments Blood Pressure 110/70 11/25/2024 10:32 AM EDT Pulse 66 11/25/2024 10:32 AM EDT Temperature - - Respiratory Rate - - Oxygen Saturation 98% 11/25/2024 10:32 AM EDT Inhaled Oxygen Concentration - - Weight 44.5 kg (98 lb) 11/25/2024 10:32 AM EDT Height 167.6 cm (5' 6 ) 11/25/2024 10:32 AM EDT Body Mass Index 15.82 11/25/2024 10:32 AM EDT documented in this encounter Functional Status * Over the past 2 weeks, how often have you been bothered by any of the following problems? Question Answer Date of Assessment Author Little interest or pleasure in doing things Not at all 11/25/2024 7:09 AM EDT Joan Blevins MA Feeling down, depressed, or hopeless Not at all 11/25/2024 7:09 AM EDT Joan Blevins MA Patient Health Questionnaire -2 Score 0 11/25/2024 7:09 AM EDT Joan Blevins MA documented as of this encounter Progress Notes * Alda Osborne MD - 11/25/2024 11:13 AM EDTAssociated Problem(s): Elevated PSA Add Probiotic to help replenish the good bacteria that are destroyed by the Antibiotics Florastor Florajen Align or try Activia in Yogurt Probiotics reduce the risk of antibiotic induced diarrhea 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 PDMP reviewed with no evidence of overuse and abuse D/W patient to avoid use of benzodiazepines when consuming alcohol Advised against operating heavy machinery and driving long distances while on medicines. * Alda Osborne MD - 11/25/2024 10:30 AM EDT Images from the original note were not included. Subjective Patient ID: Harrison Dougherty is a 73 y.o. male who presents for Hypertension. Hernia on his left side groin area, can see this when he is standing up, will swell up sometimes, it will hurt him sometimes Hypertension This is a chronic problem. The current episode started more than 1 year ago. The problem is unchanged. The problem is controlled. There are no compliance problems. Over the past 2 weeks, how often have you been bothered by any of the following problems? Little interest or pleasure in doing things: Not at all Feeling down, depressed, or hopeless: Not at all Patient Health Questionnaire-2 Score: 0 Current Outpatient Medications on File Prior to Visit Medication Sig Dispense Refill albuterol (2.5 MG/3ML) 0.083% nebulizer solution Take 3 mL (2.5 mg) by nebulization 3 (three) timesa day as needed for wheezing or shortness of breath 75 mL 2 aspirin 81 MG chewable tablet Chew 81 mg 1 (one) time. Dapenip-Aqxcazclmlo-Dfqbcjripp (Breztri Aerosphere) 160-9-4.8 MCG/ACT aerosol Inhale 2 puffs every 12 (twelve) hours. carvedilol (Coreg) 6.25 MG tablet Take 1 tablet (6.25 mg) by mouth in the morning and 1 tablet (6.25 mg) before bedtime. 200 tablet 3 Drug Clifford Unifine Pentips 31G X 6 MM misc USE DIRECTED with levemir pen fluticasone (Flonase) 50 MCG/ACT nasal spray Administer 2 sprays into each nostril in the morning. 16 g 3 hydrOXYzine HCl (Atarax) 25 MG tablet Take 25 mg by mouth in the morning and 25 mg at noon and 25 mg in the evening and 25 mg before bedtime. insulin glargine (Lantus SoloStar) 100 UNIT/ML pen Inject 8 Units under the skin at bedtime 7.2 mL 3 insulin lispro protamine-insulin lispro (HumaLOG Mix 75-25) (75-25) 100 UNIT/ML injection Inject 10Units under the skin in the morning and 10 Units in the evening. Inject with meals. 3 mL 12 lisinopril 20 MG tablet Take 1 tablet (20 mg) by mouth Daily 100 tablet 3 metFORMIN (Glucophage) 1000 MG tablet Take 1 tablet (1,000 mg) by mouth in the morning and 1 tablet(1,000 mg) in the evening. Take with meals. 180 tablet 3 ondansetron ODT (Zofran-ODT) 4 MG disintegrating tablet DISSOLVE 1 tablet on top OF tongue EVERY 6 HOURS NEEDED FOR NAUSEA AND VOMITING pravastatin (Pravachol) 40 MG tablet Take 1 tablet (40 mg) by mouth Daily 100 tablet 3 zolpidem (Ambien) 10 MG tablet Take 1 tablet (10 mg) by mouth as needed at bedtime for sleep 30 tablet 0 No current facility-administered medications on file prior to visit. I have reviewed and reconciled the history and medication list with the patient today. No Known Allergies Social History Tobacco Use Smoking status: Every Day Current packs/day: 0.50 Types: Cigarettes Smokeless tobacco: Never Tobacco comments: 6-10 cigarettes/day Substance Use Topics Alcohol use: Not Currently Comment: caffeine: chocolate Drug use: Never Family History Family history unknown: Yes Past Medical History: Diagnosis Date Allergic Allergies Bronchitis Chronic airway obstruction (HCC) Chronic airway obstruction, not elsewhere classified COPD (chronic obstructive pulmonary disease) (HCC) Cough COVID 03/26/2021 Positive Non immunized Diabetes mellitus (HCC) Dyspnea Esophageal reflux Essential hypertension, benign History of being hospitalized 02/28/2017 COPD Exacerbation [facility] History of CT scan of abdomen 12/14/2020 CT scan of abdomen Pneumobilia, Marked dilation of a small bowel loop in the mid pelvis with associated suture lines, enlarged heterogeneous prostate gland History of CT scan of chest 02/18/2019 CT scan of chest No PE, Marked emphysematous changes and chronic granulomatous disease. No active infiltrates History of CT scan of head 05/19/2021 CT Scan of head No intracranial hemorrhage, mass effect or midline shift. mild cortical volume lossand chronic small vessel ishcemic changes. Bilateral mastoid effusions History of echocardiogram 02/19/2019 Echo LV systolic Fxn is mildly reduced. Mild DD. History of MRI 05/19/2021 MRI areas of mild mucosal thickening thickening in the ethmoids. Mastoid Moderate T2 signal Throughout both mastoids and in the left external canal, some involvement of the left middle ear cavity as well Hyperchylomicronemia Hyperlipemia Hyperlipidemia Hypertension Malaise and fatigue Other malaise and fatigue Mastoiditis of both sides 10/30/2022 CT scan of brain: No intracranial abnormalities Nondependent tobacco use disorder Nonspecific abnormal findings on radiological and other examination of lung field Pancreatitis ([facility]) 1994 Type 2 diabetes mellitus without complication ([facility]) 1999 Past Surgical History: Procedure Laterality Date ABDOMINAL SURGERY Procedure:Phlegmon and Abdominal Surgery;Disease:Pancreatitis COLONOSCOPY 02/13/2014 Dr. Bautista Redundant colon, spastic colon CT ANGIOGRAM CHEST 02/18/2019 CT ANGIOGRAM CHEST [facility] ECTROPION REPAIR 10/15/2017 Left Lower Ectropion-Left Eye Dr. Hamilton EYE EXAM 2000 :Diabetes mellitus, type 2 without comp. [facility]ICATION [facility]NAGEMENT 2011 Procedure:CXR -OUDAFSXKHR-A-ZDR-TESSALON PERLES;Disease:GSRER-AIDLTEM-AEXN Visit Vitals Smoking Status Every Day Review of Systems Objective Physical Exam Assessment/Plan No follow-ups on file. documented in this encounter Plan of Treatment Upcoming Encounters Date Type Department Care Team (Late st Contact Info) Description 12/02/2024 10:00 AM EDT Office Visit [facility] [place] [facility] [address] [facility] [address] [place] [address] Agnieszka Humphreys PA [address] [facility] [address] [place] [address] 12/09/2024 11:00 AM EDT Office Visit [facility] [place] [address] [facility] [address] [place] [id number] Alda Osborne MD [address] [facility] [address] [place] [address] Scheduled Orders Name Type Priority Associated Diagnoses Orde r Schedule PSA, total and free Lab Routine Elevated PSA Expected: 11/25/2024 (Approximate), Expires: 11/25/2025 Scheduled Referrals Name Type Priority Associated Diagnoses Orde r Schedule Ambulatory referral to General Surgery Outpatient Referral Routine Inguinal hernia of left side without obstruction or gangrene Expected: 11/25/2024 (Approximate), Expires: 05/25/2025 Ambulatory referral to Urology Outpatient Referral Routine Elevated PSA Expected: 11/25/2024 (Approximate), Expires: 05/25/2025 documented as of this encounter Visit Diagnoses Diagnosis Inguinal hernia of left side without obstruction or gangrene- Primary Primary insomnia Persistent disorder of initiating or maintaining sleep Elevated PSA Elevated prostate specific antigen (PSA) documented in this encounter Care Teams [employer] Relationship Specialty Start Date End Date Alda Osborne MD [address] [facility] [address] [place] [address] PCP - General Family Medicine 09/08/22 documented as of this encounter
--- OUTSIDE RECORDS SUMMARY | 2024-11-25 10:30 | XMS_ITS | Encounter Summary ---
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 Name Role Phone Alda Osborne MD Primary Care Provider [phone] Reason for Referral * Consultation (Routine) - Pending Review Specialty Diagnoses / Procedures Referred By Torres gamino Referred To Contact Urology Diagnoses Elevated PSA Procedures [place] OFFICE/OUTPATIENT [facility] MDM 60 MINUTES Alda Osborne MD [address] [facility] [address] [place] [address] Phone: tel: fax: Tran Chew MD [facility] [place] [address] Phone: tel: fax: Referral ID Status Reason Start Date Expiration Date Visits Requested Visits Authorized [id number] Pending Review Specialty Services Required 11/25/2024 05/24/2025 1 1 * Consultation (Routine) - Pending Review Specialty Diagnoses / Procedures Referred By Torres gamino Referred To Contact General Surgery Diagnoses Inguinal hernia of left side without obstruction or gangrene Procedures [place] OFFICE/OUTPATIENT [facility] MDM 60 MINUTES Alda Osborne MD [address] [facility] [address] [place] [address] Phone: tel: fax: Prabhakar Carmona MD [address] [address] Phone: tel: fax: Referral ID Status Reason Start Date Expiration Date Visits Requested Visits Authorized [id number] Pending Review Specialty Services Required 11/25/2024 05/24/2025 1 1 Reason for Visit * Reason Comments Hypertension Encounter Details Date Type Department Care Team (Late st Contact Info) Description 11/25/2024 10:30 AM EDT [facility] [address] [place] [address] Alda Osborne MD [address] [facility] [address] [place] [address] Inguinal hernia of left side without obstruction [...] 01/25/2023 How often do you attend chur or cheondoism services? Never 01/25/2023 Do you belong to any clubs o r organizations such as temple groups, unions, fraternal or athletic groups, or [...] Recorded Patient Health Questionnaire-2 Score 0 11/25/2024 [facility] [place] - Occupational Stress Questionnaire Answer Date Recorded [...] place to sleep or slept in a fpc (including now)? 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 Aiiozui-Kgaboblowtp-Qnzsmfdvir (Breztri Aerosphere) 160-9-4.8 MCG/ACT aerosol Inhale 2 puffs every 12 (twelve) hours. carvedilol (Coreg) 6.25 MG tablet Take 1 tablet (6.25 mg) by mouth in the morning and 1 tablet (6.25 mg) before bedtime. 200 tablet 3 Drug [place] Unifine Pentips 31G X 6 MM misc [...] History of being hospitalized 02/28/2017 COPD Exacerbation [facility] History of CT scan of abdomen 12/14/2020 [...] and other examination of lung field Pancreatitis ([facility]) 1994 Type 2 diabetes mellitus without complication ([facility]) 1999 Past Surgical History: Procedure Laterality Date ABDOMINAL SURGERY Procedure:Phlegmon and Abdominal Surgery;Disease:Pancreatitis COLONOSCOPY 02/13/2014 Dr. Bautista Redundant colon, spastic colon CT ANGIOGRAM CHEST 02/18/2019 CT ANGIOGRAM CHEST [facility] ECTROPION REPAIR 10/15/2017 Left Lower Ectropion-Left Eye Dr. Hamilton EYE EXAM 2000 :Diabetes mellitus, type 2 without comp. [place] MEDICATION MANAGEMENT 2011 Procedure:CXR -NPMDPVVOEC-H-DSC-TESSALON PERLES;Disease:[id number] Visit Vitals Smoking Status Every Day Review of Systems Objective Physical Exam Assessment/Plan No follow-ups on file. documented in this encounter Plan of Treatment Upcoming Encounters Date Type Department Care Team (Late st Contact Info) Description 12/09/2024 11:00 AM EDT Office Visit [facility] [address] [facility] [address] [place] [address] Alda Osborne MD [address] [facility] [address] [place] [address] Scheduled Orders Name Type Priority Associated Diagnoses [...] (PSA) documented in this encounter Care Teams Bulbs Farmworker Relationship Specialty Start Date End Date Alda Osborne MD [address] [facility] [address] [place] [address] PCP - General Family Medicine 09/08/22 documented as of this encounter
[2024-11-26] VITALS (32 sets, daily range): BP systolic 121–163; BP diastolic 74–87; PULSE 86–99; TEMP 36.4–36.9; O2SAT 95–100; BMI 18.8; BMI 15.7
--- OUTSIDE RECORDS SUMMARY | 2024-11-26 01:09 | XMS_ITS | CCD ---
Author Organization [facility] Care Team Providers Care French Binder Name Role Phone ROSA MARIA DIAZ Unavailable Unavailable ROSA MARIA DIAZ Unavailable Unavailable ALDA SHEA Unavailable Unavailable SHABBIR, DR SANCHEZ Primary Care Unavailable YEIMY MARTINEZ Admitting Unavailable YEIMY MARTINEZ Attending Unavailable Mayuri, DR Corona Consulting Unavailable YEIMY MARTINEZ Consulting Unavailable SHABBIR, DR SANCHEZ Primary Care Unavailable SHAIKH Julia DON Admitting Unavailable SHAIKH Julia DON Attending Unavailable Mayuri, DR Corona Consulting Unavailable JIMMY HUANG Consulting Unavailable YEIMY MARTINEZ Consulting Unavailable SHAIKH Julia DON Consulting Unavailable AUNDREA ADAM Consulting Unavailable DELVIS LUND Consulting Unavailable SHABBIR, DR SANCHEZ Primary Care Unavailable JOHN, DR TAMICA Gardner Admitting Unavailtyler LOPEZ, DR TAMICA Gardner Attending Unavailtyler RUSSELL, DR ADITHYA Bull Consulting Unavailable JOHN, DR TAMICA Gardner Consulting UnavailIWONA Burton Consulting Unavailable Alda Shea MD Primary Care Provider Alda Shea MD Unavailable ALDA SHEA Attending Unavailable ALDA SHEA Attending Unavailable ALDA SHEA Attending Unavailable Medications Current Medications Medication Drug Class(es) Dates Sig (Normalized) Sig (Original) albuterol 0.83 mg/ml inhalation solution (8 sources) beta2-Adrenergic Agonist Start: 04-02-2023 End: 05-02-2023 albuterol (2.5 MG/3ML) 0.083% nebulizer solution Indications: Chronic obstructive pulmonary disease, unspecified COPD type (HCC) Take 3 mL (2.5 mg) by nebulization 3 (three) times a day as needed for wheezing or shortness of breath 75 mL 2 04/02/2023 Active amoxicillin 875 mg / clavulanate 125 mg oral tablet (1 source) Penicillin-class Antibacterial Start: 04-19-2023 End: 04-29-2023 take 1 tablet by mouth in the morning amoxicillin-clavu lanate (Augmentin) 875-125 MG tablet Indications: Ear drainage, bilateral Take 1 tablet (875 mg) by mouth in the morning and 1 tablet (875 mg) before bedtime. Do all this for 10 days. 20 tablet 0 04/19/2023 04/29/2023 Active aspirin 81 mg chewable tablet (8 sources) Platelet Aggregation Inhibitor, Nonsteroidal Anti-inflammatory Drug aspirin 81 MG chewable tablet Chew 81 mg 1 (one) time. Active benzonatate 100 mg oral capsule (1 source) Non-narcotic Antitussive Start: 04-23-2023 take 2 capsules by mouth every eight hours as needed for cough benzonatate (Tessalon) 100 MG capsule TAKE 2 CAPSULES BY MOUTH EVERY 8 HOURS NEEDED FOR COUGH 0 04/23/2023 Active 120 actuat budesonide 0.16 mg/actuat / formoterol fumarate 0.0048 mg/actuat / glycopyrrolate 0.009 mg/actuat metered dose inhaler (8 sources) Corticosteroid, beta2-Adrenergic Agonist Start: 11-03-2021 Budeson-Glycopyrr ol-Formoterol (Breztri Aerosphere) 160-9-4.8 MCG/ACT aerosol Inhale 2 puffs every 12 (twelve) hours. 11/03/2021 Active carvedilol 6.25 mg oral tablet (8 sources) alpha-Adrenergic Tracy, beta-Adrenergic Tracy Start: 06-23-2024 take 1 tablet by mouth in the morning carvedilol (Coreg) 6.25 MG tablet Indications: Essential hypertension, benign Take 1 tablet (6.25 mg) by mouth in the morning and 1 tablet (6.25 mg) before bedtime. 200 tablet 3 06/23/2024 Active Start: 06-14-2023 take 1 tablet by madina th in the morning carvedilol (Coreg) 6.25 MG tablet Indications: Essential hypertension, benign (CMS/HCC) Take 1 tablet (6.25 mg) by mouth in the morning and 1 tablet (6.25 mg) before bedtime. 200 tablet 3 06/14/2023 Active take 1 tablet by madina th in the morning Coreg 6.25 MG tablet Take 6.25 mg by mouth in the morning and 6.25 mg before bedtime. 0 Active ciprofloxacin 500 mg oral tablet (4 sources) Quinolone Antimicrobial Start: 11-25-2024 End: 12-09-2024 take 1 tablet by mouth in the morning ciprofloxacin (Cipro) 500 MG tablet Indications: Elevated PSA Take 1 tablet (500 mg) by mouth in the morning and 1 tablet (500 mg) before bedtime. Do all this for 14 days. 28 tablet 11/25/2024 12/09/2024 Active Start: 08-04-2024 End: 08-18-2024 take 1 tablet by mouth in the morning ciprofloxacin (Cipro) 250 MG tablet Indications: Elevated PSA Take 1 tablet (250 mg) by mouth in the morning and 1 tablet (250 mg) before bedtime. Do all this for 14 days. 28 tablet 08/04/2024 08/18/2024 Active Continuous Blood Gluc Roll Grinder (FreeStyle Solange 2 [place]) device (2 sources) Start: 05-01-2023 End: 04-30-2024 Continuous Blood Gluc Roll Grinder (FreeStyle Solange 2 [place]) device Indications: Type 2 diabetes mellitus without complication, without long-term current use of insulin (CMS/HCC) 1 Units in the morning and 1 Units at noon and 1 Units in the evening and 1 Units before bedtime. 05/01/2023 04/30/2024 Active Continuous Blood Gluc Sensor (FreeStyle Solange 2 Sensor) misc (2 sources) Start: 05-01-2023 End: 04-30-2024 Continuous Blood Gluc Sensor (FreeStyle Solange 2 Sensor) misc Indications: Type 2 diabetes mellitus without complication, without long-term current use of insulin (CMS/HCC) 1 Units every 14 (fourteen) days 6 each 3 05/01/2023 04/30/2024 Active fluticasone propionate 0.05 mg/actuat metered dose nasal spray (8 sources) Corticosteroid Start: 05-15-2023 take 2 spray(s) nasal route in the morning fluticasone (Flonase) 50 MCG/ACT nasal spray Indications: Chronic swimmer's ear of both sides Administer 2 sprays into each nostril in the morning. 16 g 3 05/15/2023 Active Start: 04-23-2023 take 2 spray(s) nasa l route in the morning fluticasone (Flonase) 50 MCG/ACT nasal spray Administer 2 sprays into each nostril in the morning. 0 04/23/2023 Active hydrOXYzine hydrochloride 25 mg oral tablet (8 sources) Antihistamine Start: 03-08-2022 hydrOXYzine HCl (Atarax) 25 MG tablet Take 25 mg by mouth in the morning and 25 mg at noon and 25 mg in the evening and 25 mg before bedtime. 03/08/2022 Active 3 ml insulin glargine 100 unt/ml pen injector (8 sources) Insulin Analog Start: 01-10-2024 End: 01-09-2025 inject 8 [IU] by subcutaneous injection at bedtime insulin glargine (Lantus SoloStar) 100 UNIT/ML pen Indications: Type 2 diabetes mellitus without complication, without long-term current use of insulin ([facility]) Inject 8 Units under the skin at bedtime 7.2 mL 3 01/10/2024 01/09/2025 Active Start: 04-23-2023 inject 10 [IU] by reid bcutaneous injection at bedtime Lantus SoloStar 100 UNIT/ML pen Inject 10 Units under the skin at bedtime 0 04/23/2023 Active 3 ml insulin lispro 25 unt/ml / insulin lispro protamine, human 75 unt/ml pen injector (9 sources) Insulin Analog Start: 09-17-2023 End: 08-04-2025 inject 10 [IU] by subcutaneous injection in the morning insulin lispro protamine-insulin lispro (HumaLOG Mix 75-25) (75-25) 100 UNIT/ML injection Indications: Type 2 diabetes mellitus without complication, unspecified whether mcc insulin use (HCC) , Type 2 diabetes mellitus with stage 3a chronic kidney disease, with long-term current use of insulin (HCC) Inject 10 Units under the skin in the morning and 10 Units in the evening. Inject with meals. 3 mL 12 08/04/2024 08/04/2025 Active lisinopril 20 mg oral tablet (8 sources) Angiotensin Converting Enzyme Inhibitor Start: 06-23-2024 take 1 tablet by mouth once daily lisinopril 20 MG tablet Indications: Essential hypertension, benign Take 1 tablet (20 mg) by mouth Daily 100 tablet 3 06/23/2024 Active Start: 06-14-2023 take 1 tablet by madina th once daily lisinopril 20 MG tablet Indications: Essential hypertension, benign (CMS/HCC) Take 1 tablet (20 mg) by mouth Daily 100 tablet 3 06/14/2023 Active Start: 09-07-2022 take 1 tablet by madina th in the morning lisinopril 20 MG tablet Indications: Essential hypertension, benign (CMS/HCC) Take 1 tablet (20 mg) by mouth in the morning. 90 tablet 3 09/07/2022 Active metFORMIN hydrochloride 1000 mg oral tablet (10 sources) Biguanide Start: 10-06-2022 End: 08-04-2025 take 1 tablet by mouth in the morning metFORMIN (Glucophage) 1000 MG tablet Indications: Type 2 diabetes mellitus without complication, unspecified whether mcc insulin use (HCC) Take 1 tablet (1,000 mg) by mouth in the morning and 1 tablet (1,000 mg) in the evening. Take with meals. 180 tablet 3 08/04/2024 08/04/2025 Active ondansetron 4 mg disintegrating oral tablet (2 sources) Serotonin-3 Receptor Antagonist Start: 09-17-2024 apply 1 tablet topically every six hours as needed for nausea and vomiting ondansetron ODT (Zofran-ODT) 4 MG disintegrating tablet DISSOLVE 1 tablet on top OF tongue EVERY 6 HOURS NEEDED FOR NAUSEA AND VOMITING 09/17/2024 Active pravastatin sodium 40 mg oral tablet (8 sources) HMG-CoA Reductase Inhibitor Start: 09-23-2024 take 1 tablet by mouth once daily pravastatin (Pravachol) 40 MG tablet Indications: Pure hypercholesterolemia Take 1 tablet (40 mg) by mouth Daily 100 tablet 3 09/23/2024 Active Start: 09-17-2023 take 1 tablet by madina th once daily pravastatin (Pravachol) 40 MG tablet Indications: Pure hypercholesterolemia (CMS/HCC) Take 1 tablet (40 mg) by mouth Daily 100 tablet 3 09/17/2023 Active Start: 09-07-2022 take 1 tablet by madina th in the morning pravastatin (Pravachol) 40 MG tablet Indications: Pure hypercholesterolemia (CMS/HCC) Take 1 tablet (40 mg) by mouth in the morning. 90 tablet 3 09/07/2022 Active predniSONE 10 mg oral tablet (1 source) Start: 04-19-2023 End: 05-05-2023 take 4 tablets by mouth once daily, then take 3 tablets by mouth once daily, then take 2 tablets by mouth once daily, then take 1 tablet by mouth once daily predniSONE (Deltasone) 10 MG tablet Indications: Acute low back pain without sciatica, unspecified back pain laterality Take 4 tablets (40 mg) by mouth Daily for 4 days, THEN 3 tablets (30 mg) Daily for 4 days, THEN 2 tablets (20 mg) Daily for 4 days, THEN 1 tablet (10 mg) Daily for 4 days. 40 tablet 0 04/19/2023 05/05/2023 Active zolpidem tartrate 10 mg oral tablet (9 sources) gamma-Aminobuty bola Acid-ergic Agonist Start: 04-30-2023 End: 12-25-2024 zolpidem (Ambien) 10 MG tablet Indications: Primary insomnia Take 1 tablet (10 mg) by mouth as needed at bedtime for sleep 30 tablet 11/25/2024 12/25/2024 Active Problems Active Problems Problem Classification Problem Date Documented Date Episodic/Chronic Abdominal hernia (15 sources) Left inguinal hernia ; Translations: [Unilateral inguinal hernia, without obstruction or gangrene, not specified as recurrent] Onset: 02-05-2024 02-05-2024 Episodic Adjustment disorders (8 sources) Adjustment disorder with anxious mood; Translations: [Adjustment disorder with anxiety] Onset: 09-08-2022 09-08-2022 Chronic Anxiety disorders (8 sources) Anxiety; Translations: [Anxiety disorder, unspecified] Onset: 09-08-2022 09-08-2022 Chronic Chronic kidney disease (2 sources) Chronic kidney disease stage 3A ; Translations: [Chronic kidney disease, stage 3a] Onset: 10-06-2024 10-06-2024 Chronic Chronic obstructive pulmonary disease and bronchiectasis (20 sources) Chronic obstructive pulmonary disease with (acute) exacerbation; Translations: [Chronic obstructive pulmonary disease, unspecified] Onset: 05-23-2021 09-08-2022 Chronic Coronary atherosclerosis and other heart disease (1 source) Atherosclerotic heart disease of [place] coronary artery without angina pectoris; Translations: [ASHD BEAVER CA W/O ANGINA PECTORIS] Onset: 03-28-2022 Chronic Diabetes mellitus with complications (12 sources) Type 2 diabetes mellitus with hypoglycemia without coma; Translations: [Insulin treated type 2 diabetes mellitus] Onset: 03-28-2022 02-05-2024 Chronic Diabetes mellitus without complication (11 sources) Type 2 diabetes mellitus without complications; Translations: [Type 2 diabetes mellitus without complication] Onset: 05-23-2021 09-08-2022 Chronic Disorders of lipid metabolism (17 sources) Pure hypercholesterolemia, unspecified; Translations: [Hypertriglyceridemia] Onset: 03-28-2022 09-08-2022 Chronic Esophageal disorders (8 sources) Gastroesophageal reflux disease; Translations: [Gastro-esophageal reflux disease without esophagitis] Onset: 09-08-2022 09-08-2022 Chronic Essential hypertension (9 sources) Essential (primary) hypertension; Translations: [Benign essential hypertension] Onset: 03-28-2022 09-08-2022 Chronic Hypertension with complications and secondary hypertension (10 sources) Hypertension secondary to endocrine disorder; Translations: [Hypertension secondary to endocrine disorders] Onset: 09-08-2022 09-08-2022 Chronic Immunity disorders (2 sources) Secondary immune deficiency disorder; Translations: [Immunodeficiency due to conditions classified elsewhere ([facility])] 02-05-2024 Chronic Immunizations and screening for infectious disease (4 sources) Patient encounter status; Translations: [Encounter for immunization] 02-05-2024 Episodic Inflammation; infection of eye (except that caused by tuberculosis or sexually transmitteddisease) (8 sources) Chronic conjunctivitis of left eye; Translations: [Unspecified chronic conjunctivitis, left eye] Onset: 09-08-2022 09-08-2022 Chronic Miscellaneous mental health disorders (4 sources) Primary insomnia; Translations: [Primary insomnia] Onset: 11-25-2024 11-25-2024 Chronic Nutritional deficiencies (2 sources) Deficiency of macronutrients; Translations: [Unspecified protein-calorie malnutrition] 02-05-2024 Chronic Other aftercare (1 source) alf (current) use of aspirin; Translations: [HALF-WAY CURRENT USE OF ASPIRIN] Onset: 03-28-2022 Episodic Other aftercare (1 source) Other mcc (current) drug therapy; Translations: [OTH HALF-WAY CURRENT DRUG THERAPY] Onset: 03-28-2022 Episodic Other aftercare (1 source) alf (current) use of insulin; Translations: [HALF-WAY CURRENT USE OF INSULIN] Onset: 03-28-2022 Episodic Other aftercare (1 source) alf (current) use of oral hypoglycemic drugs; Translations: [OPERATIONS LIAISON USE ORAL HYPOGLYCEMIC DX] Onset: 03-28-2022 Episodic Other ear and sense organ disorders (8 sources) Otitis externa; Translations: [Unspecified otitis externa, unspecified ear] Onset: 09-08-2022 09-08-2022 Chronic Other ear and sense organ disorders (8 sources) Bilateral hearing loss; Translations: [Unspecified hearing loss, bilateral] Onset: 08-04-2024 08-04-2024 Chronic Other lower respiratory disease (3 sources) Shortness of breath; Translations: [SHORTNESS OF BREATH] Onset: 03-24-2022 Episodic Other male genital disorders (8 sources) Secondary erectile dysfunction; Translations: [Male erectile dysfunction, unspecified] Onset: 09-08-2022 09-08-2022 Chronic Other nervous system disorders (1 source) Other chronic pain; Translations: [OTHER CHRONIC PAIN] Onset: 03-28-2022 Chronic Other nutritional; endocrine; and metabolic disorders (8 sources) Lipoprotein deficiency disorder; Translations: [Lipoprotein deficiency] Onset: 09-08-2022 09-08-2022 Chronic Other screening for suspected conditions (not mental disorders or infectious disease) (12 sources) Raised prostate specific antigen; Translations: [Elevated prostate specific antigen [PSA]] Onset: 08-04-2024 08-04-2024 Episodic Substance-related disorders (11 sources) Nicotine dependence, cigarettes, uncomplicated; Translations: [Smoker] Onset: 03-28-2022 09-08-2022 Chronic Thyroid disorders (8 sources) Hypothyroidism; Translations: [Hypothyroidism, unspecified] Onset: 09-08-2022 09-08-2022 Chronic Unclassified (1 source) ECTROPION OF LEFT LOWER LID / ECTROPION OF LEFT LOWER LID() Onset: 10-15-2017 Unclassified (1 source) CONTACT W/AND (SUSP) EXPOS COVID-19; Translations: [CONTACT W/AND (SUSP) EXPOS COVID-19] Onset: 03-28-2022 Unclassified (1 source) LOW BACK PAIN, UNSPECIFIED; Translations: [LOW BACK PAIN, UNSPECIFIED] Onset: 03-28-2022 Past or Other Problems Problem Classification Problem Date Documented Date Episodic/Chronic Acute and unspecified renal failure (7 sources) Acute renal failure syndrome; Translations: [Acute kidney failure, unspecified] Onset: 04-30-2023 04-30-2023 Episodic Conditions associated with dizziness or vertigo (4 sources) Dizziness and giddiness; Translations: [DIZZINESS AND GIDDINESS] Onset: 05-19-2021 Episodic Other ear and sense organ disorders (8 sources) Bilateral earache; Translations: [Otalgia, bilateral] Onset: 04-19-2023 04-19-2023 Episodic Other ear and sense organ disorders (8 sources) Otorrhea of bilateral ears; Translations: [Otorrhea, bilateral] Onset: 04-19-2023 04-19-2023 Episodic Other lower respiratory disease (8 sources) Lung field abnormal; Translations: [Other nonspecific abnormal finding of lung field] Onset: 09-08-2022 09-08-2022 Episodic Other nutritional; endocrine; and metabolic disorders (2 sources) Weight loss; Translations: [Abnormal weight loss] Onset: 09-17-2023 09-17-2023 Episodic Other nutritional; endocrine; and metabolic disorders (1 source) Weight decreased; Translations: [Abnormal weight loss] Onset: 09-17-2023 09-17-2023 Episodic Other nutritional; endocrine; and metabolic disorders (6 sources) Unintentional weight loss; Translations: [Abnormal weight loss] Onset: 09-17-2023 08-04-2024 Episodic Spondylosis; intervertebral disc disorders; other back problems (8 sources) Acute low back pain; Translations: [Acute low back pain without sciatica] Onset: 04-19-2023 04-19-2023 Episodic Unclassified (1 source) ECTROPION OF LEFT LOWER LID; Translations: [ECTROPION OF LEFT LOWER LID] Onset: 10-15-2017 Viral infection (8 sources) COVID-19; Translations: [Other specified viral infection] Onset: 09-08-2022 Resolved: 09-08-2022 09-08-2022 Episodic Results Test Name Value Interpretation Reference Range Facility Provider Letteron 08-26-2024 Provider Letter Provider Letter August 26, 2024 FREIDA DOUGHERTY [address] [id number] : 1950 Dear Freida, We have been trying to reach you with no success. It is important that you return our call regarding your recent referral upon receiving this letter. Also, at the time of your call, please provide us with your current information. Thank you for your prompt attention to this matter. Sincerely, [facility] [address] [place] [address] Phone ~[phone], option #3 Fax ~[phone] Normal [facility] ALBUMIN, RANDOM URINE W/CREA TININEon 07-28-2024 ALBUMIN, URINE 1.0 mg/dL Normal See Note: [facility] Comment on above: Result Comment: Refe rence Range: Reference Range Not established Performed By: #### 4 96, 7600, 63362, 6517, 6399 #### [facility] [address], [address] [place] [address] Classifying Machine Operator: Vito Fragoso MD ALBUMIN/CREATININE RATIO, RANDOM URINE 16 mg/g creat Normal <30 [facility] Comment on above: Result Comment: The ADA defines abnormalities in albumin excretion as follows: Albuminuria Category Result (mg/g creatinine) Normal to Mildly increased <30 Moderately increased 30-299 Severely increased > OR = 300 The ADA recommends that at least two of three specimens collected within a 3-6 month period be abnormal before considering a patient to be within a diagnostic category. Performed By: #### 4 96, 7600, 42119, 6517, 6399 #### [facility] [address], [address] [place] [address] Classifying Machine Operator: Vito Fragoso MD Creatinine (U) [Mass/Vol] 61 mg/dL Normal 20-320 [facility] Comment on above: Performed By: #### 4 96, 7600, 16427, 6517, 6399 #### [facility] [address], [address] [place] [address] Classifying Machine Operator: Vito Fragoso MD CBC (INCLUDES DIFF/PLT)on Basophils (Bld) [#/Vol] 0.023 10*3/uL Normal 0-200 [facility] Comment on above: Performed By: #### 4 96, 7600, 75597, 6517, 6399 #### [facility] of [address], [address] [place] [address] Classifying Machine Operator: Vito Fragoso MD Basophils/100 WBC (Bld) 0.4 % Normal [facility] Comment on above: Performed By: #### 4 96, 7600, 86786, 65, 6399 #### [facility] of [place] [address] Classifying Machine Operator: Vito Fragoso MD Eosinophils (Bld) [#/Vol] 0.194 10*3/uL Normal 15-500 [facility] Comment on above: Performed By: #### 4 96, 7600, 47401, 6516, 6399 #### [facility] of [address], [address] [place] [address] Classifying Machine Operator: Vito Fragoso MD Eosinophils/100 WBC (Bld) 3.4 % Normal [facility] Comment on above: Performed By: #### 4 96, 7600, 72904, 65, 6399 #### [facility] [place] [address] Classifying Machine Operator: Vito Fragoso MD Erythrocyte distribution width (RBC) [Ratio] 12.8 % Normal 11.0-15.0 [facility] Comment on above: Performed By: #### 4 96, 7600, 86847, 6517, 6399 #### [facility] [place] [address] Classifying Machine Operator: Vito Fragoso MD Hematocrit (Bld) [Volume fraction] 34.8 % Low 38.5-50.0 [facility] Comment on above: Performed By: #### 4 96, 7600, 21961, 6517, 6399 #### [facility] [place] [address] Classifying Machine Operator: Vito Fragoso MD Hemoglobin (Bld) [Mass/Vol] 11.2 g/dL Low 13.2-17.1 [facility] Comment on above: Performed By: #### 4 96, 7600, 56491, 65, 6399 #### [facility] [place] [address] Classifying Machine Operator: Vito Fragoso MD Lymphocytes (Bld) [#/Vol] 1.34 10*3/uL Normal 850-3900 [facility] Comment on above: Performed By: #### 4 96, 7600, 87082, 6516, 6399 #### [facility] [place] [address] Classifying Machine Operator: Vito Fragoso MD Lymphocytes/100 WBC (Bld) 23.5 % Normal [facility] Comment on above: Performed By: #### 4 96, 7600, , 6516, 6399 #### [facility] [place] [address] Classifying Machine Operator: Vito Fragoso MD MCH (RBC) [Entitic mass] 32.0 pg Normal 27.0-33.0 [facility] Comment on above: Performed By: #### 4 96, 7600, 00198, 65, 6399 #### [facility] [place] [address] Classifying Machine Operator: Vito Fragoso MD MCHC (RBC) [Mass/Vol] 32.2 g/dL Normal 32.0-36.0 [facility] Comment on above: Result Comment: For adults, a slight decrease in the calculated MCHC value (in the range of 30 to 32 g/dL) is most likely not clinically significant; however, it should be interpreted with caution in correlation with other red cell parameters and the patient's clinical condition. Performed By: #### 4 96, 7600, 66637, 65, 6399 #### [facility] [place] [address] Classifying Machine Operator: Vito Fragoso MD MCV (RBC) [Entitic vol] 99.4 fL Normal 80.0-100.0 [facility] Comment on above: Performed By: #### 4 96, 7600, 73886, 6517, 6399 #### [facility] [place] [address] Classifying Machine Operator: Vito Fragoso MD Monocytes (Bld) [#/Vol] 0.422 10*3/uL Normal 200-950 [facility] Comment on above: Performed By: #### 4 96, 7600, 60831, 6516, 6399 #### [facility] [place] [address] Classifying Machine Operator: Vito Fragoso MD Monocytes/100 WBC (Bld) 7.4 % Normal [facility] Comment on above: Performed By: #### 4 96, 7600, 13655, 17, 6399 #### [facility] [place] [address] Classifying Machine Operator: Vito Fragoso MD Neutrophils (Bld) [#/Vol] 3.722 10*3/uL Normal 3776-9579 [facility] Comment on above: Performed By: #### 4 96, 7600, 44485, 6517, 6399 #### [facility] [place] [address] Classifying Machine Operator: Vito Fragoso MD Neutrophils/100 WBC (Bld) 65.3 % Normal [facility] Comment on above: Performed By: #### 4 96, 7600, 19784, 6517, 6399 #### [facility] [place] [address] Classifying Machine Operator: Vito Fragoso MD Platelet mean volume (Bld) [Entitic vol] 10.5 fL Normal 7.5-12.5 [facility] Comment on above: Performed By: #### 4 96, 7600, 71632, 6517, 6399 #### [facility] [place] [address] Classifying Machine Operator: Vito rFagoso MD Platelets (Bld) [#/Vol] 201 10*3/uL Normal 140-400 [facility] Comment on above: Performed By: #### 4 96, 7600, 40927, 6517, 6399 #### [facility] of [address], [address] [place] [address] Classifying Machine Operator: Vito Fragoso MD RBC (Bld) [#/Vol] 3.50 10*6/uL Low 4.20-5.80 [facility] Comment on above: Performed By: #### 4 96, 7600, 11887, 6517, 6399 #### [facility] [place] [address] Classifying Machine Operator: Vito Fragoso MD WBC (Bld) [#/Vol] 5.7 10*3/uL Normal 3.8-10.8 [facility] Comment on above: Performed By: #### 4 96, 7600, 61648, 6517, 6399 #### [facility] of [place] [address] Classifying Machine Operator: Vito Fragoso MD [facility] METABOLIC [facility] 07-28-2024 Albumin [Mass/Vol] 4.0 g/dL Normal 3.6-5.1 [facility] Comment on above: Performed By: #### 4 96, 7600, 38586, 6517, 6399 #### [facility] of [place] [address] Classifying Machine Operator: Vito Fragoso MD Albumin/Globulin [Mass ratio] 1.8 {ratio} Normal 1.0-2.5 [facility] Comment on above: Performed By: #### 4 96, 7600, 01636, 6517, 6399 #### [facility] of [place] [address] Classifying Machine Operator: Vito Fragoso MD ALP [Catalytic activity/Vol] 69 U/L Normal 35-144 [facility] Comment on above: Performed By: #### 4 96, 7600, 16198, 6517, 6399 #### [facility] of [address], [address] [place] [address] Classifying Machine Operator: Vito Fragoso MD ALT [Catalytic activity/Vol] 9 U/L Normal 9-46 [facility] Comment on above: Performed By: #### 4 96, 7600, 86571, 6517, 6399 #### [facility] of [address], [address] [place] [address] Classifying Machine Operator: Vito Fragoso MD AST [Catalytic activity/Vol] 14 U/L Normal 10-35 [facility] Comment on above: Performed By: #### 4 96, 7600, 18250, 6517, 6399 #### [facility] of [address], [address] [place] [address] Classifying Machine Operator: Vito Fragoso MD Bilirubin [Mass/Vol] 0.5 mg/dL Normal 0.2-1.2 [facility] Comment on above: Performed By: #### 4 96, 7600, 09592, 6517, 6399 #### [facility] of [address], [address] [place] [address] Classifying Machine Operator: Vito Fragoso MD Calcium [Mass/Vol] 9.1 mg/dL Normal 8.6-10.3 [facility] Comment on above: Performed By: #### 4 96, 7600, 27812, 6517, 6399 #### [facility] of [address], [address] [place] [address] Classifying Machine Operator: Vito Fragoso MD Chloride [Moles/Vol] 108 mmol/L Normal 98-110 [facility] Comment on above: Performed By: #### 4 96, 7600, 51773, 6517, 6399 #### [facility] of [place] [address] Classifying Machine Operator: Vito Fragoso MD CO2 [Moles/Vol] 24 mmol/L Normal 20-32 [facility] Comment on above: Performed By: #### 4 96, 7600, 47293, 6517, 6399 #### [facility] of [address], [address] [place] [address] Classifying Machine Operator: Vito Fragoso MD Creatinine [Mass/Vol] 1.33 mg/dL High 0.70-1.28 [facility] Comment on above: Performed By: #### 4 96, 7600, 92694, 6517, 6399 #### [facility] [place] [address] Classifying Machine Operator: Vito Fragoso MD GFR/1.73 sq M.predicted among non-blacks MDRD (S/P/Bld) [Vol rate/Area] 56 mL/min/{1.73_m2} Low > OR = 60 [facility] Comment on above: Performed By: #### 4 96, 7600, 50921, 6517, 6399 #### [facility] [place] [address] Classifying Machine Operator: Vito Fragoso MD Globulin (S) [Mass/Vol] 2.2 g/dL Normal 1.9-3.7 [facility] Comment on above: Performed By: #### 4 96, 7600, 23152, 6517, 6399 #### [facility] [place] [address] Classifying Machine Operator: Vito Fragoso MD Glucose [Mass/Vol] 73 mg/dL Normal 65-99 [facility] Comment on above: Result Comment: Fasting reference interval Performed By: #### 4 96, 7600, 10080, 6517, 6399 #### [facility] of [place] [address] Classifying Machine Operator: Vito Fragoso MD Potassium [Moles/Vol] 5.3 mmol/L Normal 3.5-5.3 [facility] Comment on above: Performed By: #### 4 96, 7600, 05664, 6517, 6399 #### [facility] of [place] [address] Classifying Machine Operator: Vito Fragoso MD Protein [Mass/Vol] 6.2 g/dL Normal 6.1-8.1 [facility] Comment on above: Performed By: #### 4 96, 7600, 93529, 6517, 6399 #### [facility] [place] [address] Classifying Machine Operator: Vito Fragoso MD Sodium [Moles/Vol] 140 mmol/L Normal 135-146 [facility] Comment on above: Performed By: #### 4 96, 7600, 82215, 6517, 6399 #### [facility] [place] [address] Classifying Machine Operator: Vito Fragoso MD Urea nitrogen [Mass/Vol] 36 mg/dL High 7-25 [facility] Comment on above: Performed By: #### 4 96, 7600, 83883, 6517, 6399 #### [facility] [place] [address] Classifying Machine Operator: Vito Fragoso MD Urea nitrogen/Creatinine [Mass ratio] 27 mg/mg High 6-22 [facility] Comment on above: Performed By: #### 4 96, 7600, 79137, 6517, 6399 #### [facility] [place] [address] Classifying Machine Operator: Vito Fragoso MD HEMOGLOBIN A1con 07-28-2024 HbA1c (Bld) [Mass fraction] 6.4 % High <5.7 [facility] Comment on above: Result Comment: For someone without known diabetes, a hemoglobin A1c value between 5.7% and 6.4% is consistent with prediabetes and should be confirmed with a follow-up test. For someone with known diabetes, a value <7% indicates that their diabetes is well controlled. A1c targets should be individualized based on duration of diabetes, age, comorbid conditions, and other considerations. This assay result is consistent with an increased risk of diabetes. Currently, no consensus exists regarding use of hemoglobin A1c for diagnosis of diabetes for children. Performed By: #### 4 96, 7600, 66021, 6517, 6399 #### [facility] [address], [address] [place] [address] Classifying Machine Operator: Vito Fragoso MD LIPID PANEL, STANDARDon 05-0 Cholesterol [Mass/Vol] 83 mg/dL Normal <200 [facility] Comment on above: Order Comment: FASTI NG:YES FASTING: YES Performed By: #### 4 96, 7600, 40384, 6517, 6399 #### [facility] [address], [address] [place] [address] Classifying Machine Operator: Vito Fragoso MD Cholesterol in HDL [Mass/Vol] 29 mg/dL Low > OR = 40 [facility] Comment on above: Order Comment: FASTI NG:YES FASTING: YES Performed By: #### 4 96, 7600, 17748, 6517, 6399 #### [facility] [address], [address] [place] [address] Classifying Machine Operator: Vito Fragoso MD Cholesterol in LDL [Mass/Vol] 33 mg/dL Normal [facility] Comment on above: Order Comment: FASTI NG:YES FASTING: YES Result Comment: Refe rence range: <100 Desirable range <100 mg/dL for primary prevention; <70 mg/dL for patients with CHD or diabetic patients with > or = 2 CHD risk factors. LDL-C is now calculated using the Len-Pratik calculation, which is a validated novel method providing better accuracy than the Friedewald equation in the estimation of LDL-C. Len CAMPA et al. ARMANDO. 2013;310(19): 4142-9378 (http://education.ProtoGeo.Restopolitan/faq/KHA165) Performed By: #### 4 96, 7600, 80351, 6517, 6399 #### [facility] [address], [address] [place] [address] Classifying Machine Operator: Vito Fragoso MD Cholesterol.total/C holesterol in HDL [Mass ratio] 2.9 {ratio} Normal <5.0 [facility] Comment on above: Order Comment: FASTI NG:YES FASTING: YES Performed By: #### 4 96, 7600, 51354, 6517, 6399 #### [facility] [address], [address] [place] [address] Classifying Machine Operator: Vito Fragoso MD NON HDL CHOLESTEROL 54 mg/dL (calc) Normal <130 [facility] Comment on above: Order Comment: FASTI NG:YES FASTING: YES Result Comment: For patients with diabetes plus 1 major ASCVD risk factor, treating to a non-HDL-C goal of <100 mg/dL (LDL-C of <70 mg/dL) is considered a therapeutic option. Performed By: #### 4 96, 7600, 03050, 6517, 6399 #### [facility] [address], [address] [place] [address] Classifying Machine Operator: Vito Fragoso MD Triglyceride [Mass/Vol] 125 mg/dL Normal <150 [facility] Comment on above: Order Comment: FASTI NG:YES FASTING: YES Performed By: #### 4 96, 7600, 93671, 6517, 6399 #### [facility] [address], [address] [place] [address] Classifying Machine Operator: Vito Fragoso MD PSA, TOTALon 07-28-2024 PSA, TOTAL 21.90 ng/mL High < OR = 4.00 [email or web address] Comment on above: Result Comment: The total PSA value from this assay system is standardized against the WHO standard. The test result will be approximately 20% lower when compared to the equimolar-standardized total PSA (Evaristo [place]). Comparison of serial PSA results should be interpreted with this fact in mind. This test was performed using the Siemens chemiluminescent method. Values obtained from different assay methods cannot be used interchangeably. PSA levels, regardless of value, should not be interpreted as absolute evidence of the presence or absence of disease. Performed By: #### 4 96, 7600, 26656, 6517, 6399 #### [facility] [address], [address] [place] [address] Classifying Machine Operator: Vito Fragoso MD Laboratory - Hematology and Cell countson 02-05-2024 HbA1c (Bld) [Mass fraction] 6.6 % [facility] [employer] No Panel Informationon 02-04 Interpretation and review of laboratory results Abnormal [facility] Healthcar e BNPon 03-24-2022 Natriuretic peptide B (Bld) [Mass/Vol] 752.0 pg/mL Normal <=900.0 [facility] Comment on above: Performed By: #### C MREP #### [facility] [address] [place] [address] Dr. Jh Boudreaux CBC AUTO DIFFon 03-24-2022 BASO # 0.1 103/ul Normal 0.0-0.1 [facility] Comment on above: Performed By: #### C BC #### [facility] [address] [place] [address] Dr. Jh Boudreaux Basophils/100 WBC (Bld) 0.6 % Normal 0.2-2.0 [facility] Comment on above: Performed By: #### C BC #### [facility] [address] [place] [address] Dr. Jh Boudreaux EO # 0.4 103/ul Normal 0.0-0.7 [facility] Comment on above: Performed By: #### C BC #### [facility] [address] [place] [address] Dr. Jh Boudreaux Eosinophils/100 WBC (Bld) 4.5 % Normal 0.9-7.0 [facility] Comment on above: Performed By: #### C BC #### [facility] [address] [place] [address] Dr. Jh Boudreaux Erythrocyte distribution width (RBC) [Ratio] 12.5 % Normal 11.0-15.0 [facility] Comment on above: Performed By: #### C BC #### [facility] [address] [place] [address] Dr. Jh Boudreaux Hematocrit (Bld) [Volume fraction] 38.9 % Critically low 42.0-54.0 [facility] Comment on above: Performed By: #### C BC #### [facility] [address] [place] [address] Dr. Jh Boudreaux Hemoglobin (Bld) [Mass/Vol] 13.3 g/dL Critically low 14.0-18.0 [facility] Comment on above: Performed By: #### C BC #### [facility] [address] [place] [address] Dr. Jh Boudreaux IG # 0.03 10e3/ul Normal 0.00-0.03 [facility] Comment on above: Performed By: #### C BC #### [facility] [address] [place] [address] Dr. Jh Boudreaux IG % 0.4 % Normal 0.0-0.5 [facility] Comment on above: Performed By: #### C BC #### [facility] [address] [place] [address] Dr. Jh Boudreaux LYMPH # 1.4 103/ul Normal 1.2-3.8 [facility] Comment on above: Performed By: #### C BC #### [facility] [address] [place] [address] Dr. Jh Boudreaux Lymphocytes/100 WBC (Bld) 16.9 % Critically low 20.5-60.0 [facility] Comment on above: Performed By: #### C BC #### [facility] [address] [place] [address] Dr. Jh Boudreaux MANUAL DIFF REQ NO Normal [facility] Comment on above: Performed By: #### C BC #### [facility] [address] [place] [address] Dr. Jh Boudreaux MCH (RBC) [Entitic mass] 29.6 pg Normal 25.9-34.0 [facility] Comment on above: Performed By: #### C BC #### [facility] [address] [place] [address] Dr. Jh Boudreaux MCHC (RBC) [Mass/Vol] 34.2 g/dL Normal 29.9-35.2 [facility] Comment on above: Performed By: #### C BC #### [facility] [address] [place] [address] Dr. Jh Boudreaux MCV (RBC) [Entitic vol] 86.6 fL Normal 80.0-94.0 [facility] Comment on above: Performed By: #### C BC #### [facility] [address] [place] [address] Dr. Jh Boudreaux MONO # 0.8 103/ul Normal 0.3-0.8 [facility] Comment on above: Performed By: #### C BC #### [facility] [address] [place] [address] [address] Jh Boudreaux Monocytes/100 WBC (Bld) 10.2 % Normal 1.7-12.0 [facility] Comment on above: Performed By: #### C BC #### [facility] [address] [place] [address] [address] Jh Boudreaux NEUT # 5.6 103/ul Normal 1.4-6.5 [facility] Comment on above: Performed By: #### C BC #### [facility] [address] [place] [address] Dr. Jh Boudreaux Neutrophils/100 WBC (Bld) 67.4 % Normal 43.0-75.0 [facility] Comment on above: Performed By: #### C BC #### [facility] [address] [place] [address] Dr. Jh Boudreaux Platelet mean volume (Bld) [Entitic vol] 9.9 fL Normal 9.5-13.5 [facility] Comment on above: Performed By: #### C BC #### [facility] [address] [place] [address] Dr. Jh Boudreaux PLT 182 103/ul Normal 150-450 [facility] Comment on above: Performed By: #### C BC #### [facility] [address] [place] [address] Dr. Jh Boudreaux RBC 4.49 106/ul Critically low 4.70-6.10 [facility] Comment on above: Performed By: #### C BC #### [facility] [address] [place] [address] Dr. Jh Boudreaux WBC 8.3 103/ul Normal 4.0-11.0 [facility] Comment on above: Performed By: #### C BC #### [facility] [address] [place] [address] Dr. Jh Boudreaux [facility]-25 SARS-CoV-2 (COVID-19) RNA PETER+probe Ql (Unsp spec) Not detected Normal NOT DETECTED [facility] Comment on above: Result Comment: When diagnostic [...] for this test is supported by the [place] of Health and Human Service's declaration that [...] longer be used). Performed By: #### C VDTB #### [facility] [address] [place] [address] Dr. Jh Boudreaux INFLUENZA A AND B AGon 03-24 [facility] SEE BELOW Normal [facility] Comment on above: Result Comment: Nega tive for Flu A protein angiten. Infection due to Flu A cannot be ruled out. Flu A angiten in the sample may be below the detection limit of the test. Performed By: #### I NFLUAB #### [facility] [address] [place] [address] Dr. [facility] BELOW Normal [facility] Comment on above: Result Comment: Nega tive for Flu B protein antigen. Infection due to Flu B cannot be ruled out. Flu B antigen in the sample may be below the detection limit of the test. Performed By: #### I NFLUAB #### [facility] [address] [place] [address] Dr. Jh Boudreaux INFLUENZA A AG Negative Normal NEGATIVE SEE COMMENT [facility] Comment on above: Performed By: #### I NFLUAB #### [facility] [address] [place] [address] Dr. Jh Boudreaux INFLUENZA B AG Negative Normal NEGATIVE SEE COMMENT [facility] Comment on above: Performed By: #### I NFLUAB #### [facility] [address] [place] [address] Dr. Jh Boudreaux POINT OF CARE GLUCOSEon 02-25 Glucose [Mass/Vol] 215 mg/dL Critically high 74-106 [facility] Comment on above: Performed By: #### B DENISE, HSTROPN #### [facility] [address] [place] [address] Dr. Jh Boudreaux PROF CHEM 8 (BAS METB)on Anion gap [Moles/Vol] 12.2 mmol/L Normal [facility] Comment on above: Performed By: #### B DENISE, HSTROPN #### [facility] [address] [place] [address] Dr. Jh Boudreaux Calcium [Mass/Vol] 8.9 mg/dL Normal 8.5-10.1 [facility] Comment on above: Performed By: #### B DENISE, HSTROPN #### [facility] [address] [place] [address] Dr. Jh Boudreaux Chloride [Moles/Vol] 98 mmol/L Normal 98-107 [facility] Comment on above: Performed By: #### B DENISE, HSTROPN #### [facility] [address] [place] [address] Dr. Jh Boudreaux CO2 [Moles/Vol] 27.9 mmol/L Normal 21.0-32.0 [facility] Comment on above: Performed By: #### B MP, HSTROPN #### [facility] [address] [place] [address] Dr. Jh Boudreaux Creatinine [Mass/Vol] 1.24 mg/dL Normal 0.70-1.30 [facility] Comment on above: Performed By: #### B MP, HSTROPN #### [facility] [address] [place] [address] Dr. Jh Boudreaux EGFR-AF SRI LANKAN >60 Normal >=60 [facility] Comment on above: Performed By: #### B DENISE, HSTROPN #### [facility] [address] [place] [address] [address] Jh Boudreaux EGFR-NON AF SRI LANKAN 57 mL/min/1.73m2 Critically low >=60 [facility] Comment on above: Performed By: #### B MP, HSTROPN #### [facility] [address] [place] [address] [address] Jh Boudreaux Glucose [Mass/Vol] 62 mg/dL Critically low 74-106 [facility] Comment on above: Performed By: #### B MP, HSTROPN #### [facility] [address] [place] [address] [address] Jh Boudreaux Potassium [Moles/Vol] 5.1 mmol/L Normal 3.5-5.1 [facility] Comment on above: Performed By: #### B MP, HSTROPN #### [facility] [address] [place] [address] [address] Jh Boudreaux Sodium [Moles/Vol] 133 mmol/L Critically low 136-145 [facility] Comment on above: Performed By: #### B MP, HSTROPN #### [facility] [address] [place] [address] [address] Jh Boudreaux Urea nitrogen [Mass/Vol] 23.0 mg/dL Critically high 7.0-18.0 [facility] Comment on above: Performed By: #### B MP, HSTROPN #### [facility] [address] [place] [address] [address] Jh Boudreaux Urea nitrogen/Creatinine [Mass ratio] 18.5 mg/mg Normal [facility] Comment on above: Performed By: #### B MP, HSTROPN #### [facility] [address] [place] [address] Dr. Jh Boudraeux TROPONIN, HIGH SENSITIVITYon 03-24-2022 HSTROP 11.5 pg/mL Normal 4.0-76.1 [facility] Comment on above: Result Comment: CUT- OFF POINTS HAVE BEEN ESTABLISHED BASED ON THE FOURTH UNIVERSAL DEFINITIONS OF MYOCARDIAL INFARCTION. THE UPPER REFERENCE LIMIT (URL) OF TROPONIN, DEFINED THE 99TH PERCENTILE OF cTnI DISTRIBUTION IN A REFERENCE POPULATION, HAS BEEN CONFIRMED THE DECISION THRESHOLD FOR MT DIAGNOSIS. Performed By: #### B MP, HSTROPN #### [facility] [address] [place] [address] [address] Jh Boudreaux XR CHEST 1 Von [...] IWONA WARNER Date: 2022-03-24 18:37 Normal [facility] CARDIAC ADITHYA 3-6on 2 CK [Catalytic activity/Vol] 32 U/L Critically low 55-170 [facility] Comment on above: Performed By: #### C MREP #### [facility] [address] [place] [address] Dr. Jh Boudreaux CK.MB [Mass/Vol] 1.72 ng/mL Normal <=2.37 [facility] Comment on above: Performed By: #### C MREP #### [facility] [address] [place] [address] Dr. Jh Boudreaux HSTROP 69.6 pg/mL Critically high 4.0-42.2 [facility] Comment on above: Result Comment: CUT- OFF POINTS HAVE BEEN ESTABLISHED BASED ON THE FOURTH UNIVERSAL DEFINITIONS OF MYOCARDIAL INFARCTION. THE UPPER REFERENCE LIMIT (URL) OF TROPONIN, DEFINED THE 99TH PERCENTILE OF cTnI DISTRIBUTION IN A REFERENCE POPULATION, HAS BEEN CONFIRMED THE DECISION THRESHOLD FOR MT DIAGNOSIS. Performed By: #### C MREP #### [facility] [address] [place] [address] Dr. Jh Boudreaux CK [Catalytic activity/Vol] 29 U/L Critically low 55-170 [facility] Comment on above: Performed By: #### C MREP #### [facility] [address] [place] [address] Dr. Jh Boudreaux CK.MB [Mass/Vol] 1.57 ng/mL Normal <=2.37 [facility] Comment on above: Performed By: #### C MREP #### [facility] [address] [place] [address] Dr. Jh Boudreaux HSTROP 39.9 pg/mL Normal 4.0-42.2 [facility] Comment on above: Result Comment: CUT- OFF POINTS HAVE BEEN ESTABLISHED BASED ON THE FOURTH UNIVERSAL DEFINITIONS OF MYOCARDIAL INFARCTION. THE UPPER REFERENCE LIMIT (URL) OF TROPONIN, DEFINED THE 99TH PERCENTILE OF cTnI DISTRIBUTION IN A REFERENCE POPULATION, HAS BEEN CONFIRMED THE DECISION THRESHOLD FOR MT DIAGNOSIS. Performed By: #### C MREP #### [facility] [address] [place] [address] Dr. Jh Boudreaux CARDIAC ADITHYA ADMITon 022 CK [Catalytic activity/Vol] 32 U/L Critically low 55-170 [facility] Comment on above: Performed By: #### B DENISE, HSTROPN #### [facility] [address] [place] [address] Dr. Jh Boudreaux CK.MB [Mass/Vol] 1.15 ng/mL Normal <=2.37 [facility] Comment on above: Performed By: #### B DENISE, HSTROPN #### [facility] [address] [place] [address] Dr. Jh Boudreaux HSTROP 11.9 pg/mL Normal 4.0-42.2 [facility] Comment on above: Result Comment: CUT- OFF POINTS HAVE BEEN ESTABLISHED BASED ON THE FOURTH UNIVERSAL DEFINITIONS OF MYOCARDIAL INFARCTION. THE UPPER REFERENCE LIMIT (URL) OF TROPONIN, DEFINED THE 99TH PERCENTILE OF cTnI DISTRIBUTION IN A REFERENCE POPULATION, HAS BEEN CONFIRMED THE DECISION THRESHOLD FOR MT DIAGNOSIS. Performed By: #### B MP, HSTROPN #### [facility] [address] [place] [address] Dr. Jh Boudreaux GENA 25.0 ng/mL Normal <=121.0 [facility] Comment on above: Performed By: #### B MP, HSTROPN #### [facility] [address] [address] [address] Jh Boudreaux CBC AUTO DIFFon 05-19-2021 BASO # 0.0 103/ul Normal 0.0-0.1 [facility] Comment on above: Performed By: #### C BC #### [facility] [address] [address] [address] Jh Boudreaux Basophils/100 WBC (Bld) 0.3 % Normal 0.2-2.0 [facility] Comment on above: Performed By: #### C BC #### [facility] [facility] [address] [address] [address] Jh Boudreaux EO # 0.2 103/ul Normal 0.0-0.7 [facility] Comment on above: Performed By: #### C BC #### [facility] [address] [place] [address] Dr. Jh Boudreaux Eosinophils/100 WBC (Bld) 2.0 % Normal 0.9-7.0 [facility] Comment on above: Performed By: #### C BC #### [facility] [address] [place] [address] Dr. Jh Boudreaux Erythrocyte distribution width (RBC) [Ratio] 12.2 % Normal 11.0-15.0 [facility] Comment on above: Performed By: #### C BC #### [facility] [address] [place] [address] Dr. Jh Boudreaux Hematocrit (Bld) [Volume fraction] 33.7 % Critically low 42.0-54.0 [facility] Comment on above: Performed By: #### C BC #### [facility] [address] [place] [address] Dr. Jh Boudreaux Hemoglobin (Bld) [Mass/Vol] 11.8 g/dL Critically low 14.0-18.0 [facility] Comment on above: Performed By: #### C BC #### [facility] [address] [place] [address] Dr. hJ Boudreaux IG # 0.04 10e3/ul Critically high 0.00-0.03 [facility] Comment on above: Performed By: #### C BC #### [facility] [address] [place] [address] Dr. Jh Boudreaux IG % 0.5 % Normal 0.0-0.5 [facility] Comment on above: Performed By: #### C BC #### [facility] [address] [place] [address] Dr. Jh Boudreaux LYMPH # 1.2 103/ul Normal 1.2-3.8 [facility] Comment on above: Performed By: #### C BC #### [facility] [address] [place] [address] Dr. Jh Boudreaux Lymphocytes/100 WBC (Bld) 15.3 % Critically low 20.5-60.0 [facility] Comment on above: Performed By: #### C BC #### [facility] [address] [place] [address] Dr. Jh Boudreaux MANUAL DIFF REQ NO Normal [facility] Comment on above: Performed By: #### C BC #### [facility] [address] [place] [address] Dr. Jh Boudreaux MCH (RBC) [Entitic mass] 31.6 pg Normal 25.9-34.0 [facility] Comment on above: Performed By: #### C BC #### [facility] [address] [place] [address] Dr. Jh Boudreaux MCHC (RBC) [Mass/Vol] 35.0 g/dL Normal 29.9-35.2 [facility] Comment on above: Performed By: #### C BC #### [facility] [address] [place] [address] Dr. Jh Boudreaux MCV (RBC) [Entitic vol] 90.1 fL Normal 80.0-94.0 [facility] Comment on above: Performed By: #### C BC #### [facility] [address] [place] [address] Dr. Jh Boudreaux MONO # 0.5 103/ul Normal 0.3-0.8 [facility] Comment on above: Performed By: #### C BC #### [facility] [address] [address] [address] Jh Boudreaux Monocytes/100 WBC (Bld) 6.3 % Normal 1.7-12.0 [facility] Comment on above: Performed By: #### C BC #### [facility] [address] [address] [address] Jh Boudreaux NEUT # 5.9 103/ul Normal 1.4-6.5 [facility] Comment on above: Performed By: #### C BC #### [facility] [address] [address] [address] Jh Boudreaux Neutrophils/100 WBC (Bld) 75.6 % Critically high 43.0-75.0 [facility] Comment on above: Performed By: #### C BC #### [facility] [address] [place] [address] Dr. Jh Boudreaux Platelet mean volume (Bld) [Entitic vol] 9.0 fL Critically low 9.5-13.5 [facility] Comment on above: Performed By: #### C BC #### [facility] [address] [address] [address] Jh Boudreaux PLT 164 103/ul Normal 150-450 [facility] Comment on above: Performed By: #### C BC #### [facility] [address] [place] [address] Dr. Jh Boudreaux RBC 3.74 106/ul Critically low 4.70-6.10 [facility] Comment on above: Performed By: #### C BC #### [facility] [address] [place] [address] Dr. Jh Boudreaux WBC 7.8 103/ul Normal 4.0-11.0 [facility] Comment on above: Performed By: #### C BC #### [facility] [address] [place], [place] [id number] Dr. Jh Boudreaux CT HEAD WO CONon [...] DELVIS LUND Date: 2021-05-19 04:40 Normal [facility] Covid-19 PCR (CVDTBH)on 04-27 SARS-CoV-2 (COVID-19) RNA PETER+probe Ql (Unsp spec) Not detected Normal NOT DETECTED [facility] Comment on above: Result Comment: When diagnostic testing is negative, the possibility of a false negative should be considered in the context of a patient's recent exposures and the presence of clinical signs and symptoms consistent with SARS-CoV-2. This test is not yet approved or cleared by the [place] Food and Drug Administration (FDA). This test was developed by [employer], [place], [place]. The performance characteristics of this test were validated by The [facility]. The results are not intended to be used as the sole means for clinical diagnosis or patient management decisions. The [facility] is authorized under Clinical Laboratory Improvement Amendments [...] for this test is supported by the [place] [employer] of Health and Human Service's declaration that [...] be used). Performed By: #### B , HSTROPN #### [facility] [address] [address] [address] Jh Boudreaux MRI BRAIN WO CONon [...] AUNDREA ADAM Date: 2021-05-19 12:42 Normal [facility] POINT OF CARE GLUCOSEon - Glucose [Mass/Vol] 76 mg/dL Normal 74-106 [facility] Comment on above: Performed By: #### B DENISE, HSTROPN #### [facility] [address] [address] [address] Jh Boudreaux Glucose [Mass/Vol] 217 mg/dL Critically high 74-106 [facility] Comment on above: Performed By: #### C MREP #### [facility] [address] [place] [address] Dr. Jh Boudreaux PROF CHEM 8 (BAS METB)on Anion gap [Moles/Vol] 11.9 mmol/L Normal [facility] Comment on above: Performed By: #### B DENISE, HSTROPN #### [facility] [address] [place] [address] Dr. Jh Boudreaux Calcium [Mass/Vol] 8.7 mg/dL Normal 8.4-10.2 [facility] Comment on above: Performed By: #### B DENISE HSTROPN #### [facility] [address] [place] [address] Dr. Jh Boudreaux Chloride [Moles/Vol] 101 mmol/L Normal 98-107 [facility] Comment on above: Performed By: #### B DENISE, HSTROPN #### [facility] [address] [place] [address] Dr. Jh Boudreaux CO2 [Moles/Vol] 25.4 mmol/L Normal 22.0-30.0 [facility] Comment on above: Performed By: #### B DENISE, HSTROPN #### [facility] [address] [place] [address] Dr. Jh Boudreaux Creatinine [Mass/Vol] 1.11 mg/dL Normal 0.66-1.25 [facility] Comment on above: Performed By: #### B DENISE, HSTROPN #### [facility] [address] [place] [address] Dr. Jh Boudreaux EGFR-AF SRI LANKAN >60 Normal >=60 [facility] Comment on above: Performed By: #### B DENISE, HSTROPN #### [facility] [address] [place] [address] Dr. Jh Boudreaux EGFR-NON AF SRI LANKAN >60 Normal >=60 [facility] Comment on above: Performed By: #### B DENISE, HSTROPN #### [facility] [address] [address] [address] Jh Boudreaux Glucose [Mass/Vol] 214 mg/dL Critically high 74-106 [facility] Comment on above: Performed By: #### B DENISE, HSTROPN #### [facility] [address] [address] [address] Jh Boudreaux Potassium [Moles/Vol] 4.3 mmol/L Normal 3.4-5.0 [facility] Comment on above: Performed By: #### B DENISE, HSTROPN #### [facility] [address] [place] [address] Dr. Jh Boudreaux Sodium [Moles/Vol] 134 mmol/L Critically low 137-145 [facility] Comment on above: Performed By: #### B DENISE HSTROPN #### [facility] [address] [place] [address] Dr. Jh Boudreaux Urea nitrogen [Mass/Vol] 23.0 mg/dL Critically high 9.0-20.0 [facility] Comment on above: Performed By: #### Esli WALKER, HSTROPN #### [facility] [address] [place] [address] Dr. Jh Boudreaux Urea nitrogen/Creatinine [Mass ratio] 20.7 mg/mg Normal [facility] Comment on above: Performed By: #### B DENISE HSTROPN #### [facility] [address] [place] [address] Dr. Jh Boudreaux XR FOREIGN BODY EYEon 2021 XR FOREIGN BODY EYE EXAMINATION: XR FOREIGN BODY EYE HISTORY: vertigo COMPARISON: No relevant comparison available. FINDINGS: ORBITS: Negative for a metallic foreign body. OTHER: Negative. IMPRESSION: 1. No metallic foreign body within the orbits. Electronically authenticated by: CJ MESSINA Date: 2021-05-19 11:55 Normal [facility] XR CHEST 1 Von 05-04-2021 XR CHEST 1 V This study was read during a downtime in the [employer] PACS system. The actual time dictated and [...] CJ MESSINA Date: 2021-05-04 16:13 Normal [facility] BNPon 05-03-2021 Natriuretic peptide B (Bld) [Mass/Vol] 1093.0 pg/mL Critically high <=900.0 [facility] Comment on above: Performed By: #### C MP, CMADM, BNP #### [facility] [address] [address] [address] Jh Boudreaux CARDIAC ADITHYA ADMITon 022 CK [Catalytic activity/Vol] 42 U/L Critically low 55-170 [facility] Comment on above: Performed By: #### C MP, CMADM, BNP #### [facility] [address] [address] [address] Jh Boudreaux CK.MB [Mass/Vol] 1.12 ng/mL Normal <=2.37 [facility] Comment on above: Performed By: #### C MP, CMADM, BNP #### [facility] [address] [address] [address] Jh Bouderaux HSTROP 13.3 pg/mL Normal 4.0-42.2 [facility] Comment on above: Result Comment: CUT- OFF POINTS HAVE BEEN ESTABLISHED BASED ON THE FOURTH UNIVERSAL DEFINITIONS OF MYOCARDIAL INFARCTION. THE UPPER REFERENCE LIMIT (URL) OF TROPONIN, DEFINED THE 99TH PERCENTILE OF cTnI DISTRIBUTION IN A REFERENCE POPULATION, HAS BEEN CONFIRMED THE DECISION THRESHOLD FOR MT DIAGNOSIS. Performed By: #### C MP, CMADM, BNP #### [facility] [address] [place] [address] Dr. Jh Boudreaux GENA 38.0 ng/mL Normal <=121.0 [facility] Comment on above: Performed By: #### C MP, CMADM, BNP #### [facility] [address] [place] [address] Dr. Jh Boudreaux CBC AUTO DIFFon 05-03-2021 BASO # 0.0 103/ul Normal 0.0-0.1 [facility] Comment on above: Performed By: #### C MREP #### [facility] [address] [place] [address] Dr. hJ Boudreaux Basophils/100 WBC (Bld) 0.2 % Normal 0.2-2.0 [facility] Comment on above: Performed By: #### C MREP #### [facility] [address] [place] [address] Dr. Jh Boudreaux EO # 0.2 103/ul Normal 0.0-0.7 [facility] Comment on above: Performed By: #### C MREP #### [facility] [address] [place] [address] Dr. Jh Boudreaux Eosinophils/100 WBC (Bld) 2.0 % Normal 0.9-7.0 [facility] Comment on above: Performed By: #### C MREP #### [facility] [address] [place] [address] Dr. Jh Boudreaux Erythrocyte distribution width (RBC) [Ratio] 12.4 % Normal 11.0-15.0 [facility] Comment on above: Performed By: #### C MREP #### [facility] [address] [place] [address] Dr. hJ Boudreaux Hematocrit (Bld) [Volume fraction] 37.6 % Critically low 42.0-54.0 [facility] Comment on above: Performed By: #### C MREP #### [facility] [address] [place] [address] Dr. Jh Boudreaux Hemoglobin (Bld) [Mass/Vol] 13.0 g/dL Critically low 14.0-18.0 [facility] Comment on above: Performed By: #### C MREP #### [facility] [address] [address] [address] Jh Boudreaux IG # 0.04 10e3/ul Critically high 0.00-0.03 [facility] Comment on above: Performed By: #### C MREP #### [facility] [address] [place] [address] Dr. Jh Boudreaux IG % 0.5 % Normal 0.0-0.5 [facility] Comment on above: Performed By: #### C MREP #### [facility] [address] [place] [address] Dr. Jh Boudreaux LYMPH # 1.3 103/ul Normal 1.2-3.8 [facility] Comment on above: Performed By: #### C MREP #### [facility] [address] [place] [address] Dr. Jh Boudreaux Lymphocytes/100 WBC (Bld) 14.5 % Critically low 20.5-60.0 [facility] Comment on above: Performed By: #### C MREP #### [facility] [address] [place] [address] Dr. Jh Boudreaux MANUAL DIFF REQ NO Normal [facility] Comment on above: Performed By: #### C MREP #### [facility] [address] [place] [address] Dr. Jh Boudreaux MCH (RBC) [Entitic mass] 30.8 pg Normal 25.9-34.0 [facility] Comment on above: Performed By: #### C MREP #### [facility] [address] [place] [address] Dr. Jh Boudreaux MCHC (RBC) [Mass/Vol] 34.6 g/dL Normal 29.9-35.2 [facility] Comment on above: Performed By: #### C MREP #### [facility] [address] [place] [address] Dr. Jh Boudreaux MCV (RBC) [Entitic vol] 89.1 fL Normal 80.0-94.0 [facility] Comment on above: Performed By: #### C MREP #### [facility] [address] [place] [address] Dr. Jh Boudreaux MONO # 0.7 103/ul Normal 0.3-0.8 [facility] Comment on above: Performed By: #### C MREP #### [facility] [address] [place] [address] Dr. Jh Boudreaux Monocytes/100 WBC (Bld) 7.8 % Normal 1.7-12.0 [facility] Comment on above: Performed By: #### C MREP #### [facility] [address] [place] [address] Dr. Jh Boudreaux NEUT # 6.5 103/ul Normal 1.4-6.5 [facility] Comment on above: Performed By: #### C MREP #### [facility] [address] [place] [address] Dr. Jh Boudreaux Neutrophils/100 WBC (Bld) 75.0 % Normal 43.0-75.0 [facility] Comment on above: Performed By: #### C MREP #### [facility] [address] [place] [address] Dr. Jh Boudreaux Platelet mean volume (Bld) [Entitic vol] 9.5 fL Normal 9.5-13.5 [facility] Comment on above: Performed By: #### C MREP #### [facility] [address] [place] [address] Dr. Jh Boudreaux PLT 240 103/ul Normal 150-450 [facility] Comment on above: Performed By: #### C MREP #### [facility] [address] [place] [address] Dr. Jh Boudreaux RBC 4.22 106/ul Critically low 4.70-6.10 [facility] Comment on above: Performed By: #### C MREP #### [facility] [address] [place] [address] Dr. Jh Boudreaux WBC 8.6 103/ul Normal 4.0-11.0 [facility] Comment on above: Performed By: #### C MREP #### [facility] [address] [place] [address] Dr. Jh Boudreaux CULTURE BLOODon 05-03-2021 Microscopic examination of blood, culture Culture Observations: NO GROWTH AT 5 DAYS. Normal [facility] Comment on above: Performed By: #### B MP, HSTROPN #### [facility] [address] [place] [address] Dr. Jh Boudreaux Microscopic examination of blood, culture Culture Observations: NO GROWTH AT [address] [facility] Comment on above: Performed By: #### B MP, HSTROPN #### [facility] [address] [place] [address] Dr. Jh Boudreaux Covid-19 PCR (CVDTBH)on SARS-CoV-2 (COVID-19) RNA PETER+probe Ql (Unsp spec) Not detected Normal NOT DETECTED [facility] Comment on above: Result Comment: When diagnostic testing is negative, the possibility of a false negative should be considered in the context of a patient's recent exposures and the presence of clinical signs and symptoms consistent with SARS-CoV-2. This test is not yet approved or cleared by the [place] Food and Drug Administration (FDA). This test was developed by [employer], [place], [place]. The performance characteristics of this test were validated by The [facility]. The results are not intended to be used as the sole means for clinical diagnosis or patient management decisions. The [facility] is authorized under Clinical Laboratory Improvement Amendments [...] for this test is supported by the [place] of Health and Human Service's declaration that [...] used). Performed By: #### C MREP #### [facility] [address] [place] [address] Dr. Jh Bouderaux LACTATE/LACTIC ACIDon 2021 Lactate [Moles/Vol] 1.8 mmol/L Normal 0.7-2.0 [facility] Comment on above: Performed By: #### C MREP #### [facility] [address] [place] [address] Dr. Jh Boudreaux PROF 14(COMP METB)on 022 Albumin [Mass/Vol] 3.8 g/dL Normal 3.5-5.0 [facility] Comment on above: Performed By: #### C MP, CMADM, BNP #### [facility] [address] [place] [address] Dr. Jh Boudreaux Albumin/Globulin [Mass ratio] 1.2 {ratio} Normal [facility] Comment on above: Performed By: #### C MP, CMADM, BNP #### [facility] [address] [place] [address] Dr. Jh Boudreaux ALP [Catalytic activity/Vol] 78 U/L Normal 38-126 [facility] Comment on above: Performed By: #### C MP, CMADM, BNP #### [facility] [address] [place] [address] Dr. Jh Boudreaux ALT [Catalytic activity/Vol] 20 U/L Critically low 21-72 [facility] Comment on above: Performed By: #### C MP, CMADM, BNP #### [facility] [address] [place] [address] Dr. Jh Boudreaux Anion gap [Moles/Vol] 13.5 mmol/L Normal [facility] Comment on above: Performed By: #### C MP, CMADM, BNP #### [facility] [address] [address] [address] Jh Boudreaux AST [Catalytic activity/Vol] 19 U/L Normal 17-59 [facility] Comment on above: Performed By: #### C MP, CMADM, BNP #### [facility] [address] [place] [address] Dr. Jh Boudreaux Bilirubin [Mass/Vol] 0.8 mg/dL Normal 0.2-1.3 [facility] Comment on above: Performed By: #### C MP, CMADM, BNP #### [facility] [address] [address] [address] Jh Boudreaux Calcium [Mass/Vol] 9.2 mg/dL Normal 8.4-10.2 [facility] Comment on above: Performed By: #### C MP, CMADM, BNP #### [facility] [address] [place] [address] Dr. Jh Boudreaux Chloride [Moles/Vol] 96 mmol/L Critically low 98-107 [facility] Comment on above: Performed By: #### C MP, CMADM, BNP #### [facility] [address] [place] [address] Dr. Jh Boudreaux CO2 [Moles/Vol] 26.2 mmol/L Normal 22.0-30.0 [facility] Comment on above: Performed By: #### C MP, CMADM, BNP #### [facility] [address] [address] [address] Jh Boudreaux Creatinine [Mass/Vol] 0.91 mg/dL Normal 0.66-1.25 [facility] Comment on above: Performed By: #### C MP, CMADM, BNP #### [facility] [address] [place] [address] Dr. Jh Boudreaux EGFR-AF SRI LANKAN >60 Normal >=60 [facility] Comment on above: Performed By: #### C MP, CMADM, BNP #### [facility] [address] [place] [address] Dr. Jh Boudreaux EGFR-NON AF SRI LANKAN >60 Normal >=60 [facility] Comment on above: Performed By: #### C MP, CMADM, BNP #### [facility] [address] [place] [address] Dr. Jh Boudreaux Globulin (S) [Mass/Vol] 3.3 g/dL Normal [facility] Comment on above: Performed By: #### C MP, CMADM, BNP #### [facility] [address] [place] [address] Dr. Jh Boudreaux Glucose [Mass/Vol] 116 mg/dL Critically high 74-106 [facility] Comment on above: Performed By: #### C MP, CMADM, BNP #### [facility] [address] [place] [address] Dr. Jh Boudreaux Potassium [Moles/Vol] 4.7 mmol/L Normal 3.4-5.0 [facility] Comment on above: Performed By: #### C MP, CMADM, BNP #### [facility] [address] [place] [address] Dr. Jh Boudreaux Protein [Mass/Vol] 7.1 g/dL Normal 6.1-8.2 [facility] Comment on above: Performed By: #### C MP, CMADM, BNP #### [facility] [address] [place] [address] Dr. Jh Boudreaux Sodium [Moles/Vol] 131 mmol/L Critically low 137-145 [facility] Comment on above: Performed By: #### C MP, CMADM, BNP #### [facility] [address] [place] [address] Dr. Jh Boudreaux Urea nitrogen [Mass/Vol] 16.0 mg/dL Normal 9.0-20.0 [facility] Comment on above: Performed By: #### C MP, CMADM, BNP #### [facility] [address] [place] [address] Dr. Jh Boudreaux Urea nitrogen/Creatinine [Mass ratio] 17.6 mg/mg Normal [facility] Comment on above: Performed By: #### C MP, CMADM, BNP #### [facility] [address] [place] [address] Dr. Jh Boudreaux PROTIMEon 05-03-2021 INR Coag (PPP) [Relative time] 1.01 {INR} Normal [facility] Comment on above: Performed By: #### C MREP #### [facility] [address] [place] [address] Dr. Jh Boudreaux INR GUIDELINES SEE BELOW Normal [facility] Comment on above: Result Comment: NADIRA RED INR: 2.0 - 3.0 CONDITIONS NOT LISTED BELOW 2.5 - 3.5 FOR PROSTHETIC HEART VALVE REPLACEMENT 2.5 - 3.5 RECURRENT THROMBOSIS Performed By: #### C MREP #### [facility] [address] [place] [address] Dr. Jh Boudreaux PT Coag (PPP) [Time] 10.9 s Normal 9.0-11.6 [facility] Comment on above: Performed By: #### C MREP #### [facility] [address] [place] [address] Dr. Jh Boudreaux PTTon 05-03-2021 aPTT Coag (Bld) [Time] 27.1 s Normal 22.3-36.2 [facility] Comment on above: Performed By: #### C MREP #### [facility] [address] [place] [address] Dr. Jh Boudreaux Vital Signs Date Time Vital Sign Value Performing Clinician Faci lity 11-25-2024 10:32-0400 Body height 167.6 cm Alda Shea MD Work Phone: [facility] 11-25-2024 10:32-0400 Body mass index (BMI) [Ratio] 15.82 kg/m2 Alda Shea MD Work Phone: [facility] 11-25-2024 10:32-0400 Body weight 44.45 kg Alda Shea MD Work Phone: [facility] 11-25-2024 10:32-0400 Diastolic blood pressure 70 mm[Hg] Alda Shea MD Work Phone: [facility] 09-02-2025 10:32-0400 Heart rate 66 /min Alda Shea MD Work Phone: [facility] 11-25-2024 10:32-0400 SaO2% (BldA) [Mass fraction] 98 % Alda Shea MD Work Phone: [facility] 11-25-2024 10:32-0400 Systolic blood pressure 110 mm[Hg] Alda Shea MD Work Phone: [facility] 08-04-2024 13:07-0400 Body height 167.6 cm Alda Shea MD Work Phone: [facility] 08-04-2024 13:07-0400 Body mass index (BMI) [Ratio] 15.66 kg/m2 Alda Shea MD Work Phone: [facility] 08-04-2024 13:07-0400 Body weight 44 kg Alda Shea MD Work Phone: [facility] 08-04-2024 13:07-0400 Diastolic blood pressure 68 mm[Hg] Alda Shea MD Work Phone: [facility] 08-04-2024 13:07-0400 Heart rate 93 /min Alda Shea MD Work Phone: [facility] 08-04-2024 13:07-0400 SaO2% (BldA) [Mass fraction] 99 % Alda Shea MD Work Phone: [facility] 08-04-2024 13:07-0400 Systolic blood pressure 112 mm[Hg] Alda Shea MD Work Phone: [facility] 02-05-2024 13:39-0500 Body height 167.6 cm Alda Shea MD Work Phone: [facility] 02-05-2024 13:39-0500 Body mass index (BMI) [Ratio] 16.62 kg/m2 Alda Shea MD Work Phone: [facility] 02-05-2024 13:39-0500 Body weight 46.72 kg Alda Shea MD Work Phone: [facility] 02-05-2024 13:39-0500 Diastolic blood pressure 78 mm[Hg] Alda Shea MD Work Phone: [facility] 02-05-2024 13:39-0500 Systolic blood pressure 104 mm[Hg] Alda Shea MD Work Phone: [facility] Encounters Encounter Date Encounter Type Care Provider Facility Start: 11-25-2024 End: 11-25-2024 Office outpatient visit 25 minutes Alda Shea MD Work Phone: [facility] Comment on above: Inguinal hernia of l eft side without obstruction or gangrene (Primary Dx); Primary insomnia; Elevated PSA Start: 11-25-2024 End: 11-25-2024 ambulatory ALDA SHEA Not Available Start: 08-04-2024 End: 08-04-2024 Bamboo flowsheet Alda Shea MD Work Phone: [facility] Start: 08-04-2024 End: 08-04-2024 Bamboo flowsheet Alda Shea MD Work Phone: [facility] Start: 08-04-2024 End: 08-04-2024 Assay of hemosiderin, quant Alda Shea MD Work Phone: [facility] Start: 08-04-2024 End: 08-04-2024 Patient encounter procedure Alda Shea MD Work Phone: [facility] Comment on above: Routine general medi bo examination at health care facility (Primary Dx); Type 2 diabetes mellitus without complication, unspecified whether mcc insulin use; Type 2 diabetes mellitus with stage 3a chronic kidney disease, with long-term current use of insulin (HCC) ([facility]); Chronic obstructive pulmonary disease, unspecified; Unintentional weight loss of 10% body weight within 6 months; Elevated PSA; Bilateral hearing loss, unspecified hearing loss type Start: 08-04-2024 End: 08-04-2024 ambulatory ALDA SHEA Not Available Start: 02-05-2024 End: 02-05-2024 Office outpatient visit 25 minutes Alda Shea MD Work Phone: [facility] Comment on above: 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); Type 2 diabetes mellitus with stage 3a chronic kidney disease, with long-term current use of insulin (HCC) (CMS/HCC); Unspecified protein-calorie malnutrition (CMS/HCC); Immunodeficiency due to conditions classified elsewhere (CMS/HCC); Smoker; Inguinal hernia of left side without obstruction or gangrene; Screening for colon cancer; Encounter for vaccination Start: 02-05-2024 End: 02-05-2024 ambulatory ALDA SHEA Not Available Start: 06-14-2023 Patient encounter procedure Alda Shea MD Work Phone: [facility] Start: 04-29-2023 Chart abstracting Alda Shea MD Work Phone: [facility] Start: 03-24-2022 End: 03-24-[address] ALDA SHEA Facility:[facility] Start: 05-19-2021 End: 05-19-[address] ALDA SHEA Facility:[facility] Start: 05-03-2021 End: 05-03-[address] ALDA SHEA Facility:[facility] Start: 10-15-2017 End: 10-15-2017 Patient encounter ROSA MARIA DIAZ [facility] Procedures Date Procedure Procedure Detail Performing Clinician Start: 02-05-2024 Hemoglobin glycosylated a1c Alda Shea MD Work Phone: Start: 10-15-2017 DISCHARGE PATIENT ROSA MARIA DIAZ Start: 10-15-2017 DIET NPO, NOW ROSA MARIA CLA RK Start: 10-15-2017 FULL CODE ROSA MARIA DURAND K Start: 10-15-2017 INITIATE OXYGEN THER APY PROTOCOL ROSA MARIA DIAZ Start: 10-15-2017 NURSING COMMUNICATION B DEBO DIAZ Start: 10-15-2017 VERIFY INFORMED CONSENT ROSA MARIA DIAZ Start: 02-12-2014 Colonoscopy Alda Shea MD Work Phone: Plan of Treatment Date Care Activity Detail Author Start: 08-04-2025 Medicare Annual Wellness (AWV) Medicare Annual Wellness (AWV) [facility] Start: 07-25-2025 Urine screening for protein Diabetes: Urine Protein Screening [facility] Start: 11-25-2024 End: 11-25-2025 PSA, total and free PSA, total and free Lab Routine Elevated PSA Expected: 11/25/2024 (Approximate), Expires: 11/25/2025 [facility] Work Phone: Comment on above: Expected: 11/25/2024 (Approximate), Expires: 11/25/2025 Start: 11-24-2024 Influenza vaccination Influenza Vacc ine (#1) [facility] Start: 10-25-2024 Hemoglobin A1c measurement Diabetes: Hemoglobin A1C [facility] Start: 08-04-2024 End: 08-04-2024 Patient encounter procedure [facility] Comment on above: Arrived Start: 07-08-2024 Urine screening for protein Diabetes: Urine Protein Screening [facility] Start: 06-13-2024 Medicare Annual Wellness (AWV) Medicare Annual Wellness (AWV) [facility] Start: 05-07-2024 Hemoglobin A1c measurement Diabetes: Hemoglobin A1C [facility] Start: 02-13-2024 Screening for malign ant neoplasm of colon [facility] Start: 02-05-2024 End: 02-04-2025 Noninvasive colorectal cancer DNA and occult blood screening [Presence] in Stool Cologuard colon cancer screening Lab Routine Screening for colon cancer Expected: 02/05/2024 (Approximate), Expires: 02/04/2025 [facility] Work Phone: Comment on above: Expected: 02/05/2024 (Approximate), Expires: 02/04/2025 Start: 05-22-2023 End: 05-22-2023 Patient encounter procedure 05/22/2023 1:00 PM EST Office Visit [facility] [address] [facility] [address] [place] [id number] Alda Shea MD [address] [place] [facility] [address] [place] [address] [facility] Start: 04-30-2023 End: 04-30-2023 Patient encounter procedure 04/30/2023 11:15 AM EST Office Visit [facility] [address] [facility] [address] [place] [phone] Alda Shea MD [address] [address] [facility] Start: 02-20-2023 Hemoglobin A1c measurement Diabetes: Hemoglobin A1C [facility] Start: 09-17-2020 Glaucoma screening Diabetes: R etinopathy Screening [facility] Start: 1950 Medicare Annual Wellness (AWV) Medicare Annual Wellness (AWV) [facility] Start: 1950 Screening for malign ant neoplasm of colon [facility] Immunizations Immunization Date Immunization Notes Care Provider Fa cility 02-05-2024 Influenza, High-dose Seasonal, Quadrivalent, Preservative Free Alda Shea MD Work Phone: [facility] 02-05-2024 influenza virus vacc ine, unspecified formulation Alda Shea MD Work Phone: [facility] 02-06-2023 Influenza, High-dose Seasonal, Quadrivalent, Preservative Free Alda Shea MD Work Phone: [facility] 02-02-2022 influenza, high dose seasonal, preservative-free Alda Shea MD Work Phone: [facility] 03-09-2021 Influenza, High-dose Seasonal, Quadrivalent, Preservative Free Alda Shea MD Work Phone: [facility] 01-07-2020 Seasonal, quadrivale nt, recombinant, injectable influenza vaccine, preservative free Alda Shea MD Work Phone: [facility] 02-06-2019 Influenza, High-dose Seasonal, Quadrivalent, Preservative Free Alda Shea MD Work Phone: [facility] 02-01-2018 Influenza, High-dose Seasonal, Quadrivalent, Preservative Free Alda Shea MD Work Phone: [facility] 01-11-2017 pneumococcal polysaccharide vaccine, 23 valent Alda Shea MD Work Phone: [facility] 12-28-2016 Influenza, High-dose Seasonal, Quadrivalent, Preservative Free Alda Shea MD Work Phone: [facility] 08-02-2015 pneumococcal conjuga te vaccine, 13 valent Alda Shea MD Work Phone: [facility] 07-30-2015 pneumococcal conjuga te vaccine, 13 valent Alda Shea MD Work Phone: [facility] 07-30-2015 zoster vaccine, live Alda kinney MD Work Phone: [facility] 12-11-2012 tetanus and diphther ia toxoids, adsorbed, preservative free, for adult use (2 Lf of tetanus toxoid and 2 Lf of diphtheria toxoid) Alda Shea MD Work Phone: [facility] 12-29-2011 influenza, seasonal, injectable, preservative free Alda Shea MD Work Phone: [facility] Payers Date Payer Category Payer Medicare (Managed Care) [facility] [id number] 2024 Medicare [id number] 2017 Medicare [id number] 2014 Unknown [id number] 1959 Medicare [id number] 1948 Unknown [id number] 1948 Unknown [id number] 1948 Unknown [id number] 1948 Unknown [id number] 1948 Unknown [id number] 1948 Unknown [id number] Social History Date Type Detail Facility Start: 01-04-2023 Tobacco smoking status INIS Smokes t obacco daily [facility] History of tobacco use Cigarette Smoker [facility] Start: 01-04-2023 End: 01-25-2023 Cigarettes smoked current (pack per day) - Reported 0.5 [facility] Start: 01-04-2023 Tobacco use and exposure Smoke less tobacco non-user [facility] Start: 04-29-2023 End: 11-25-2024 Alcohol intake Ex-drinker (finding) [facility] Start: 01-25-2023 End: 11-25-2024 Humiliation, Afraid, Rape, and Kick questionnaire [HARK] [facility] Within the last year , have you been afraid of your partner or ex-partner? No [facility] Are you now , , , , never or living with a partner? [facility] How often to you hav e a drink containing alcohol? Never [facility] How many standard dr inks containing alcohol do you have on a typical day? Patient does not drink [facility] Do you feel stress - tense, restless, nervous, or anxious, or unable to sleep at night because your mind is troubled all the time - these days [OSQ] Only a little [facility] (I/We) worried wheth er (my/our) food would run out before (I/we) got money to buy more. Never true [facility] Start: 01-04-2023 Tobacco Comment 6-10 cigarettes/day [facility] Start: 01-04-2023 Alcohol Comment caffeine: chocolate [facility] Start: 1950 Sex Assigned At Not on file [facility] Medical Equipment Procedure Code Equipment Code Equipment Origin al Text Equipment Identifier Dates USE DIRECTED with idalmis [id number] Start: 04-23-2023 Functional Status Date Assessment Result Facility 11-25-2024 Patient Health Quest ionnaire 2 item (PHQ-2) [Reported] [facility] 08-04-2024 Patient Health Quest ionnaire 2 item (PHQ-2) [Reported] [facility] History of Present illness Narrative 11-25-2024 Alda Shea MD - 11/25/2024 11:13 AM Atul Shea MD - 11/25/2024 11:11 AM Atul Shea MD - 11/25/2024 10:30 AM EDT Note Date & Type Note Facility 11-25-2024 History of Presen t illness Narrative Associated Problem(s): Elevated PSA Add Probiotic to help replenish the good bacteria that are destroyed by the Antibiotics Florastor Florajen Align or try Activia in Yogurt Probiotics reduce the risk of antibiotic induced diarrhea 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 PDMP reviewed with no evidence of overuse and abuse D/W patient to avoid use of benzodiazepines when consuming alcohol Advised against operating heavy machinery and driving long distances while on medicines. Images from the original note were not included. Subjective Patient ID: Freida Dougherty is a 73 y.o. male who [...] mL (2.5 mg) by nebulization 3 (three) times a day as needed for wheezing or shortness of breath 75 mL 2 aspirin 81 MG chewable tablet Chew 81 mg 1 (one) time. Ytoebws-Orsxiktxxzo-Bgxgrrnpkh (Breztri Aerosphere) 160-9-4.8 MCG/ACT aerosol Inhale 2 puffs every 12 (twelve) hours. carvedilol (Coreg) 6.25 MG tablet Take 1 tablet (6.25 mg) by mouth in the morning and 1 tablet (6.25 mg) before bedtime. 200 tablet 3 Drug [place] Unifine Pentips 31G X 6 MM mis USE DIRECTED with levemir pen fluticasone (Flonase) [...] Mix 75-25) (75-25) 100 UNIT/ML injection Inject 10 Units under the skin in the morning and 10 Units in the evening. Inject with meals. 3 mL 12 lisinopril 20 MG tablet Take 1 tablet (20 mg) by mouth Daily 100 tablet 3 metFORMIN (Glucophage) 1000 MG tablet Take 1 tablet (1,000 mg) by mouth in the morning and 1 tablet (1,000 mg) in the evening. Take with meals. [...] elsewhere classified COPD (chronic obstructive pulmonary disease) ([facility]) Cough COVID 03/26/2021 Positive Non immunized Diabetes mellitus ([facility]) Dyspnea Esophageal reflux Essential hypertension, benign History [...] effect or midline shift. mild cortical volume loss and chronic small vessel ishcemic changes. Bilateral mastoid [...] and other examination of lung field Pancreatitis (HHS-HCC) 1994 Type 2 diabetes mellitus without complication (HCC) 1999 Past Surgical History: Procedure Laterality Date ABDOMINAL SURGERY Procedure:Phlegmon and Abdominal Surgery;Disease:Pancreatitis COLONOSCOPY 02/13/2014 Dr. Bautista Redundant colon, spastic colon CT ANGIOGRAM CHEST 02/18/2019 CT ANGIOGRAM CHEST [facility] ECTROPION REPAIR 10/15/2017 Left Lower Ectropion-Left Eye Dr. Diaz EYE EXAM 1999 :Diabetes mellitus, type 2 without comp. [facility] MEDICATION MANAGEMENT 2011 Procedure:CXR -[id number]-KAMALAMAIKEL HAJI;Disease:[id number] Visit Vitals Smoking Status Every Day Review of Systems Objective Physical Exam Assessment/Plan No follow-ups on file. documented in this encounter [facility] History of Present illness Narrative 08-04-2024 Alda Shea MD - 08/04/2024 1:30 PM Atul Shea MD - 08/04/2024 1:25 PM EDSabina Shea MD - 08/04/2024 1:24 PM Atul Shea MD - 08/04/2024 1:24 PM EDT Note Date & Type Note Facility 08-04-2024 History of Presen t illness Narrative Associated Problem(s): Elevated PSA Possible Prostate Cancer Associated Problem(s): Routine general medical examination at health care facility Colonoscopy every 10 years or Cologuard every 3 years ages 50-75 Flu Vaccine yearly Pneumovax and Prevnar Mammo yearly for women and PSA yearly for men Labs/Screening yearly to rule out Diabetes, Chronic Kidney disease and liver disease Hepatitis Screen forat risk populations Shingles vaccine after 65 if indicated Tetanus Vaccine every 10 years Lipids yearly under the age of 75 If Smoking history: one time CT scan of chest and Ultrasound of Aorta to screen for Anuerysm Associated Problem(s): Type 2 diabetes mellitus with stage 3a chronic kidney disease, with long-term current use of insulin (HCC) (CMS/HCC) No Tobacco use Follow ADA 1800 diet low carbohydrate Continue Med Compliance Goal LDL less than 100 Goal BP 130/80 Goal HgbA1c < 7.0% Monitor Feet, monitor for infection Needs Exercise Yearly eye exams Prior to your visit today we reviewed your chart and outlined testing and treatment needed for your care. Reviewed poissble complications of diabetes including, loss of vision, kidney failure and increased risk of heart attacks and stroke. We made recommendations on how to control your blood sugars, and minimize your risk of these complications. We discussed your current barriers to a healthy living and importance of healthy diet and exercise. Associated Problem(s): Chronic obstructive pulmonary disease, unspecified Today we discussed the possible complications of COPD, including increased risk of respiratory failure, hospitalization and . Your goal for your COPD management are maintain a healthy weight with a BMI of less than 26 and prevent future hospitalizations by using your medications as prescribed and avoiding environments with smoke exposure. We are working together to achieve these goals with the following plans increase activity levels, compliance of medications and a healthier diet. You have been given education handouts and a summary of your care plan. Associated Problem(s): Unintentional weight loss of 10% body weight within 6 months Patient has refused Cologuard and CT scan of chest XR 03/2023 was negative for Mass PSA is elevated possible Prostate Cancer. Referral made Increase Calories Images from the original note were not included. Subjective : Chief Complaint: Freida Dougherty is an 73 y.o. male here for an annual wellness visit. I have reviewed and reconciled the history and medication list with the patient today. Current Outpatient Medications Medication Sig Dispense Refill albuterol (2.5 MG/3ML) 0.083% nebulizer solution Take 3 mL (2.5 mg) by nebulization 3 (three) times a day as needed for wheezing or shortness of breath 75 mL 2 aspirin 81 MG chewable tablet Chew 81 mg 1 (one) time. Yoqfsvb-Zsdxbikxwnh-Gzpygoqhth (Breztri Aerosphere) 160-9-4.8 MCG/ACT aerosol Inhale 2 puffs every 12 (twelve) hours. carvedilol (Coreg) 6.25 MG tablet Take 1 tablet (6.25 mg) by mouth in the morning and 1 tablet (6.25 mg) before bedtime. 200 tablet 3 Drug [place] Unifine Pentips 31G X 6 MM misc [...] the skin at bedtime 7.2 mL 3 lisinopril 20 MG tablet Take 1 tablet (20 mg) by mouth Daily 100 tablet 3 pravastatin (Pravachol) 40 MG tablet Take 1 tablet (40 mg) by mouth Daily 100 tablet 3 zolpidem (Ambien) 10 MG tablet Take 1 tablet (10 mg) by mouth as needed at bedtime for sleep 30 tablet 0 ciprofloxacin (Cipro) 250 MG tablet Take 1 tablet (250 mg) by mouth in the morning and 1 tablet (250 mg) before bedtime. Do all this for 14 days. 28 tablet 0 insulin lispro protamine-insulin lispro (HumaLOG Mix 75-25) (75-25) 100 UNIT/ML injection Inject 10 Units under the skin in the morning and 10 Units in the evening. Inject with meals. 3 mL 12 metFORMIN (Glucophage) 1000 MG tablet Take 1 tablet (1,000 mg) by mouth in the morning and 1 tablet (1,000 mg) in the evening. Take with meals. 180 tablet 3 No current facility-administered medications for this visit. Review of Systems Constitutional: Positive for unexpected weight change. Negative for chills, fatigue and fever. Respiratory: Negative for cough. Cardiovascular: Negative for chest pain. Gastrointestinal: Negative for abdominal pain, blood in stool, constipation, diarrhea, nausea and vomiting. Genitourinary: Negative for dysuria, enuresis, frequency and hematuria. Musculoskeletal: Negative for back pain. Neurological: Negative for dizziness, tremors, syncope, facial asymmetry and speech difficulty. Psychiatric/Behavioral: Negative for agitation, behavioral problems, confusion and dysphoric mood. The patient is not nervous/anxious. List of current healthcare providers: Patient Care Team: Alda Shea MD as PCP - General (Family Medicine) Medicare Annual Visit Over the past 2 weeks, how often have you been bothered by any of the following problems? Little interest or pleasure in doing things: Not at all Feeling down, depressed, or hopeless: Not at all Patient Health Questionnaire-2 Score: 0 [place] Fall Risk History of Falling, Immediate or Within 3 Months: No Health Risk Assessment Form Do you need help eating, bathing, using the toilet, dressing, or getting around your home?: No Can you prepare your own meals?: Yes Can you do your own housework without help?: Yes Can you shop for groceries or clothes without help?: Yes Do you exercise for about 20 minutes 3 or more days a week?: Yes How confident are you that you can control and manage most of your health problems?: Very confident Can you mange your money, credit cards and accounts, pay bills and taxes?: Yes Vision Screening: Yes, no gross abnormalities Hearing Screening: Yes, no gross abnormalities Cognitive Screening Self Assessment: No overt cognitive deficiency is apparent by direct observation Three Word Registration: Leader, Season, Table Clock Drawing: Normal Clock - 2 Three Word Recall: 1/3 words correct - 1 Total Score (0-5 Points): 3 Pain Assessment Pain Score: 0 - No pain Advance Care Planning Do you have a living will?: No Do you have a medical power of finance attorney?: No Objective : BP 112/68 Pulse 93 Ht 5' 6 Wt 97 lb SpO2 99% BMI 15.66 kg/m No results found. Physical Exam Vitals reviewed. Constitutional: Appearance: Normal appearance. HENT: Head: Normocephalic. Neck: Vascular: No carotid bruit. Cardiovascular: Rate and Rhythm: Normal rate and regular rhythm. Pulses: Normal pulses. Pulmonary: Effort: Pulmonary effort is normal. Breath sounds: Normal breath sounds. Neurological: General: No focal deficit present. Mental Status: He is alert and oriented to person, place, and time. Psychiatric: Mood and Affect: Mood normal. Assessment/Plan : The following health maintenance schedule was reviewed with the patient and provided in printed form in the after visit summary: Health Maintenance Topic Date Due Diabetes: Retinopathy Screening 09/17/2020 Colorectal Cancer Screening 02/13/2024 Diabetes: Hemoglobin A1C 10/25/2024 Diabetes: Urine Protein Screening 07/25/2025 Medicare Annual Wellness (AWV) 08/04/2025 Influenza Vaccine Completed Pneumococcal Vaccine: 65+ Years Completed Advance Care Planning Patient willing to discuss ACP. If in place, renew periodically. If not in place, recommend obtaining ACP. Assessment/Plan Problem List Items Addressed This Visit Type 2 diabetes mellitus without complication Relevant Medications metFORMIN (Glucophage) 1000 MG tablet insulin lispro protamine-insulin lispro (HumaLOG Mix 75-25) (75-25) 100 UNIT/ML injection Chronic obstructive pulmonary disease, unspecified Today we discussed the possible complications of COPD, including increased risk of respiratory failure, hospitalization and . Your goal for your COPD management are maintain a healthy weight with a BMI of less than 26 and prevent future hospitalizations by using your medications as prescribed and avoiding environments with smoke exposure. We are working together to achieve these goals with the following plans increase activity levels, compliance of medications and a healthier diet. You have been given education handouts and a summary of your care plan. Routine general medical examination at health care facility - Primary Colonoscopy every 10 years or Cologuard every 3 years ages 50-75 Flu Vaccine yearly Pneumovax and Prevnar Mammo yearly for women and PSA yearly for men Labs/Screening yearly to rule out Diabetes, Chronic Kidney disease and liver disease Hepatitis Screen forat risk populations Shingles vaccine after 65 if indicated Tetanus Vaccine every 10 years Lipids yearly under the age of 75 If Smoking history: one time CT scan of chest and Ultrasound of Aorta to screen for Anuerysm Type 2 diabetes mellitus with stage 3a chronic kidney disease, with long-term current use of insulin (HCC) ([facility]/HCC) No Tobacco use Follow ADA 1800 diet low carbohydrate Continue Med Compliance Goal LDL less than 100 Goal BP 130/80 Goal HgbA1c < 7.0% Monitor Feet, monitor for infection Needs Exercise Yearly eye exams Prior to your visit today we reviewed your chart and outlined testing and treatment needed for your care. Reviewed poissble complications of diabetes including, loss of vision, kidney failure and increased risk of heart attacks and stroke. We made recommendations on how to control your blood sugars, and minimize your risk of these complications. We discussed your current barriers to a healthy living and importance of healthy diet and exercise. Relevant Medications insulin lispro protamine-insulin lispro (HumaLOG Mix 75-25) (75-25) 100 UNIT/ML injection Unintentional weight loss of 10% body weight within 6 months Patient has refused Cologuard and CT scan of chest XR 03/2023 was negative for Mass PSA is elevated possible Prostate Cancer. Referral made Increase Calories Elevated PSA Possible Prostate Cancer Relevant Medications ciprofloxacin (Cipro) 250 MG tablet Other Relevant Orders Ambulatory referral to Urology Bilateral hearing loss Relevant Orders Ambulatory referral to Audiology Orders Placed This Encounter Procedures Ambulatory referral to Urology Standing Status: Future Expected Date: 08/04/2024 Expiration Date: 02/04/2025 Referral Priority: Routine Referral Type: Consultation Referral Reason: Specialty Services Required Referred to Provider: Tran Chew MD Requested Specialty: Urology Number of Visits Requested: 1 Ambulatory referral to Audiology Standing Status: Future Expected Date: 08/04/2024 Expiration Date: 02/04/2025 Referral Priority: Routine Referral Type: Consultation Referral Reason: Specialty Services Required Referred to Provider: Pinky King CCC-[facility] Requested Specialty: Audiology Number of Visits Requested: 1 Electronically signed by Alda Shea MD on August 04, 2024 documented in this encounter [facility] History of Present illness Narrative 02-05-2024 Alda Shea MD - 02/05/2024 1:55 PM Simran Shea MD - 02/05/2024 1:48 PM Simran Shea MD - 02/05/2024 1:46 PM Simran Shea MD - 02/05/2024 1:30 PM EST Note Date & Type Note Facility 02-05-2024 History of Presen t illness Narrative Associated Problem(s): Smoker Discussed smoking cessation with the patient. Encouraged patient to try to cut back gradually and soon quit smoking. Discussed ways to quit smoking including gum, patches, medication, and gradually reducing the number of cigarettes smoked daily. Discussed potential health risks of mcc smoking. Patient voiced understanding. Benefits of cessation, both health and financial, were reviewed. Associated Problem(s): Type 2 diabetes mellitus with stage 3a chronic kidney disease, with long-term current use of insulin ([facility]) ([facility]) No Tobacco use Follow ADA 1800 diet low carbohydrate Continue Med Compliance Goal LDL less than 100 Goal BP 130/80 Goal HgbA1c < 7.0% Monitor Feet, monitor for infection Needs Exercise Yearly eye exams Prior to your visit today we reviewed your chart and outlined testing and treatment needed for your care. Reviewed poissble complications of diabetes including, loss of vision, kidney failure and increased risk of heart attacks and stroke. We made recommendations on how to control your blood sugars, and minimize your risk of these complications. We discussed your current barriers to a healthy living and importance of healthy diet and exercise. Associated Problem(s): Hypertension due to endocrine disorder ([facility]) Our specific goals, for your hypertension, is to keep your blood pressure less than 140/90, and the importance of weight control. We made recommendations on how to control your blood pressure, and minimize your risk of these copmplications. We also discussed your current barriers to a healthy living and importance of healthy diet and exercise. Prior to your visit today we have reviewed your chart and formed a plan to assist with providing you the best possible care. We reviewed the possible complications of hypertension including, stroke, heart failure and kidney impairment. In addition, we discussed your medications, the importance of taking them as prescribed. DASH diet handouts Images from the original note were not included. HPI Diabetes Additional comments: Last A1c was 6.9 Last edited by Laurie Blevins MA on 02/05/2024 7:39 AM. Subjective Patient ID: Freida Dougherty is a 73 y.o. male who presents for Diabetes (Last A1c was 6.9). Subjective Freida Dougherty is an 71 y.o. male who presents for follow up of diabetes. Pt denies foot ulcers, numbness/tingling in extremities. Admits hypoglycemic episodes.Does check BS's daily usually runs around 80-150. Currently taking lispro and humalog and Metformin About a month and a half ago states he found a lump on the left groin area , he can move it not painful , he can sometimes push it back in Hypoglycemia episodes resolved Diabetes He presents for his follow-up diabetic visit. He has type 2 diabetes mellitus. No MedicAlert identification noted. The initial diagnosis of diabetes was made 5 years ago. His disease course has been stable. Hypoglycemia symptoms include confusion. Pertinent negatives for hypoglycemia include no dizziness. There are no diabetic associated symptoms. Pertinent negatives for diabetes include no chest pain, no polydipsia, no polyphagia and no polyuria. Hypoglycemia complications include hospitalization and required glucagon injection. Symptoms are stable. There are no diabetic complications. Risk factors for coronary artery disease include diabetes mellitus and hypertension. Current diabetic treatment includes insulin injections. He is compliant with treatment all of the time. His weight is stable. He is following a diabetic diet. When asked about meal planning, he reported none. He rarely participates in exercise. There is no change in his home blood glucose trend. An ABRIL inhibitor/angiotensin II receptor tracy is being taken. Hypertension Pertinent negatives include no chest pain or shortness of breath. Current Outpatient Medications on File Prior to Visit Medication Sig Dispense Refill albuterol (2.5 MG/3ML) 0.083% nebulizer solution Take 3 mL (2.5 mg) by nebulization 3 (three) times a day as needed for wheezing or shortness of breath 75 mL 2 aspirin 81 MG chewable tablet Chew 81 mg 1 (one) time. Lcjmzwc-Luuldsicpqf-Ghlikuwpxm (Breztri Aerosphere) 160-9-4.8 MCG/ACT aerosol Inhale 2 puffs every 12 (twelve) hours. carvedilol (Coreg) 6.25 MG tablet Take 1 tablet (6.25 mg) by mouth in the morning and 1 tablet (6.25 mg) before bedtime. 200 tablet 3 Continuous Blood Gluc Roll Grinder (Avrupa MineralsStyle Solange 2 [place]) device 1 Units in the morning and 1 Units at noon and 1 Units in the evening and 1 Units before bedtime. Continuous Blood Gluc Sensor (FreeStyle Solange 2 Sensor) misc 1 Units every 14 (fourteen) days 6 each 3 Drug [place] Unifine Pentips 31G X 6 MM misc [...] Mix 75-25) (75-25) 100 UNIT/ML injection Inject 10 Units under the skin in the morning and 10 Units in the evening. Inject with meals. 3 mL 12 lisinopril 20 MG tablet Take 1 tablet (20 mg) by mouth Daily 100 tablet 3 metFORMIN (Glucophage) 1000 MG tablet Take 1 tablet (1,000 mg) by mouth in the morning and 1 tablet (1,000 mg) in the evening. Take with meals. 180 tablet 3 pravastatin (Pravachol) 40 MG tablet Take 1 [...] Date Allergic Allergies Bronchitis Chronic airway obstruction (CMS/HCC) Chronic airway obstruction, not elsewhere classified COPD (chronic obstructive pulmonary disease) (CMS/HCC) Cough COVID 03/26/2021 Positive Non immunized Diabetes mellitus (CMS/HCC) Dyspnea Esophageal reflux Essential hypertension, benign (CMS/HCC) History of being hospitalized 02/28/2017 COPD Exacerbation [...] effect or midline shift. mild cortical volume loss and chronic small vessel ishcemic changes. Bilateral mastoid effusions History of echocardiogram 02/19/2019 Echo LV systolic Fxn is mildly reduced. Mild DD. History of MRI 05/19/2021 MRI areas of mild mucosal thickening thickening in the ethmoids. Mastoid Moderate T2 signal Throughout both mastoids and in the left external canal, some involvement of the left middle ear cavity as well Hyperchylomicronemia (CMS/HCC) Hyperlipemia (CMS/HCC) Hyperlipidemia (CMS/HCC) Hypertension (CMS/HCC) Malaise and fatigue Other malaise and fatigue Mastoiditis of both sides 10/30/2022 CT scan of brain: No intracranial abnormalities Nondependent tobacco use disorder Nonspecific abnormal findings on radiological and other examination of lung field Pancreatitis 1994 Type 2 diabetes mellitus without complication (CMS/HCC) 1999 Past Surgical History: Procedure Laterality Date ABDOMINAL SURGERY Procedure:Phlegmon and Abdominal Surgery;Disease:Pancreatitis COLONOSCOPY 02/13/2014 Dr. Bautista Redundant colon, spastic colon CT ANGIOGRAM CHEST 02/18/2019 CT ANGIOGRAM CHEST [facility] ECTROPION REPAIR 10/15/2017 Left Lower Ectropion-Left Eye Dr. Diaz EYE EXAM 2000 :Diabetes mellitus, type 2 without comp. [facility] MEDICATION MANAGEMENT 2011 Procedure:CXR -[id number]-TESSALON ADITHYA;Disease:[id number] Visit Vitals BP 104/78 Ht 5' 6 Wt 103 lb BMI 16.62 kg/m Smoking Status Every Day BSA 1.47 m Review of Systems Respiratory: Positive for cough. Negative for shortness of breath. Cardiovascular: Negative for chest pain. Gastrointestinal: Negative for abdominal distention, abdominal pain, anal bleeding and blood in stool. Genitourinary: Groin mass Neurological: Negative for dizziness. Psychiatric/Behavioral: Positive for confusion. Endocrine: Negative for polydipsia, polyphagia and polyuria. Objective Physical Exam Vitals reviewed. Constitutional: Appearance: Normal appearance. HENT: Head: Normocephalic. Neck: Vascular: No carotid bruit. Cardiovascular: Rate and Rhythm: Normal rate and regular rhythm. Pulses: Normal pulses. Pulmonary: Effort: Pulmonary effort is normal. Breath sounds: Normal breath sounds. Abdominal: Hernia: A hernia is present. Hernia is present in the left inguinal area. Genitourinary: Testes: Left: Swelling not present. Neurological: General: No focal deficit present. Mental Status: He is alert and oriented to person, place, and time. Psychiatric: Mood and Affect: Mood normal. Office Visit on 02/05/2024 Component Date Value Ref Range Status Hemoglobin A1C 02/05/2024 6.6 Final Assessment/Plan Problem List Items Addressed This Visit Smoker Discussed smoking cessation with the patient. Encouraged patient to try to cut back gradually and soon quit smoking. Discussed ways to quit smoking including gum, patches, medication, and gradually reducing the number of cigarettes smoked daily. Discussed potential health risks of mcc smoking. Patient voiced understanding. Benefits of cessation, both health and financial, were reviewed. Hypertension due to endocrine disorder ([facility]) - Primary Our specific goals, for your hypertension, is to keep your blood pressure less than 140/90, and the importance of weight control. We made recommendations on how to control your blood pressure, and minimize your risk of these copmplications. We also discussed your current barriers to a healthy living and importance of healthy diet and exercise. Prior to your visit today we have reviewed your chart and formed a plan to assist with providing you the best possible care. We reviewed the possible complications of hypertension including, stroke, heart failure and kidney impairment. In addition, we discussed your medications, the importance of taking them as prescribed. DASH diet handouts Type 2 diabetes mellitus with stage 3a chronic kidney disease, with long-term current use of insulin (HCC) ([facility]) No Tobacco use Follow ADA 1800 diet low carbohydrate Continue Med Compliance Goal LDL less than 100 Goal BP 130/80 Goal HgbA1c < 7.0% Monitor Feet, monitor for infection Needs Exercise Yearly eye exams Prior to your visit today we reviewed your chart and outlined testing and treatment needed for your care. Reviewed poissble complications of diabetes including, loss of vision, kidney failure and increased risk of heart attacks and stroke. We made recommendations on how to control your blood sugars, and minimize your risk of these complications. We discussed your current barriers to a healthy living and importance of healthy diet and exercise. Relevant Orders POCT Glycated hemoglobin, total (Completed) Inguinal hernia of left side without obstruction or gangrene Relevant Orders Ambulatory referral to General Surgery Other Visit Diagnoses Unspecified protein-calorie malnutrition ([facility]/HCC) Immunodeficiency due to conditions classified elsewhere ([facility]) Follow up in about 6 months (around 08/04/2024) for Diabetes. documented in this encounter [facility] Note 02-05-2024 Addendum Note - Laurie Blevins MA - 02/05/2024 1:30 PM EST Note Date & Type Note Facility 02-05-2024 Miscellaneous Notes Addended by: LAURIE BLEVINS on: 02/05/2024 02:09 PM Modules accepted: Orders documented in this encounter [facility] Clinical Note 02-05-2024 Addendum Note - Laurie Blevins MA - 02/05/2024 1:30 PM EST Note Date & Type Note Facility 02-05-2024 Note Addended by: LAURIE BLEVINS on: 02/05/2024 02:09 PM Modules accepted: Orders [facility] Clinical Note 02-05-2024 Addendum Note - Laurie Blevins MA - 02/05/2024 1:30 PM EST Note Date & Type Note Facility 02-05-2024 Note Addended by: LAURIE BLEVINS on: 02/05/2024 02:09 PM Modules accepted: Orders [facility] Evaluation note Note Date & Type Note Facility Evaluation note Diagnosis Type 2 diabetes mellitus without complication, unspecified whether 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 insulin use ([facility]) Hypertension due to endocrine disorder ([facility]) Otalgia of both ears- Primary Ear drainage, bilateral Acute low back pain without sciatica, unspecified back pain laterality Chronic swimmer's ear of both sides Type 2 diabetes mellitus without complication, without long-term current use of insulin (CMS/HCC)- Primary Pain and swelling of left lower extremity Ear drainage, bilateral Acute kidney injury superimposed on chronic kidney disease (CMS/HCC) Primary insomnia Persistent disorder of initiating or maintaining sleep Routine general medical examination at health care facility- Primary Routine general medical examination at a health care facility Pure hypercholesterolemia (CMS/HCC) Pure hypercholesterolemia Essential hypertension, benign (CMS/HCC) Essential hypertension, benign Screening for malignant neoplasm of colon Type 2 diabetes mellitus without complication, unspecified whether 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 insulin use (CMS/HCC) Infrarenal abdominal aortic aneurysm (AAA) without rupture (CMS/HCC) Medicare annual wellness visit, subsequent Type 2 diabetes mellitus with stage 3a chronic kidney disease, with long-term current use of insulin (HCC) (CMS/HCC) Essential hypertension, benign (CMS/HCC)- Primary Essential hypertension, benign Type 2 diabetes mellitus without complication, unspecified whether 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 insulin use (CMS/HCC) Type 2 diabetes mellitus with stage 3a chronic kidney disease, with long-term current use of insulin (HCC) (CMS/HCC) Pure hypercholesterolemia (CMS/HCC) Pure hypercholesterolemia Weight loss Loss of weight Colon cancer screening Special screening for malignant neoplasms, colon Hypertension due to endocrine disorder (CMS/HCC)- Primary Type 2 diabetes mellitus with stage 3a chronic kidney disease, with long-term current use of insulin (HCC) (CMS/HCC) Unspecified protein-calorie malnutrition (CMS/HCC) Unspecified protein-calorie malnutrition Immunodeficiency due to conditions classified elsewhere (CMS/HCC) Smoker Tobacco use disorder Inguinal hernia of left side without obstruction or gangrene Screening for colon cancer Special screening for malignant neoplasms, colon Encounter for vaccination documented in this encounter [facility] Evaluation note Note Date & Type Note Facility Evaluation note Diagnosis Type 2 diabetes mellitus without complication, unspecified whether mcc insulin use Hypertension due to endocrine disorder (CMS/HCC) Otalgia of both ears- Primary Ear drainage, bilateral Acute low back pain without sciatica, unspecified back pain laterality Chronic swimmer's ear of both sides Type 2 diabetes mellitus without complication, without long-term current use of insulin- Primary Pain and swelling of left lower extremity Ear drainage, bilateral Acute kidney injury superimposed on chronic kidney disease (CMS/HCC) Primary insomnia Persistent disorder of initiating or maintaining sleep Routine general medical examination at health care facility- Primary Routine general medical examination at a health care facility Pure hypercholesterolemia (CMS/HCC) Pure hypercholesterolemia Essential hypertension, benign (CMS/HCC) Essential hypertension, benign Screening for malignant neoplasm of colon Type 2 diabetes mellitus without complication, unspecified whether 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 insulin use Infrarenal abdominal aortic aneurysm (AAA) without rupture ([facility]/HCC) Medicare annual wellness visit, subsequent Type 2 diabetes mellitus with stage 3a chronic kidney disease, with long-term current use of insulin (HCC) (CMS/HCC) Essential hypertension, benign (CMS/HCC)- Primary Essential hypertension, benign Type 2 diabetes mellitus without complication, unspecified whether mcc insulin use Type 2 diabetes mellitus with stage 3a chronic kidney disease, with long-term current use of insulin (HCC) (CMS/HCC) Pure hypercholesterolemia (CMS/HCC) Pure hypercholesterolemia Weight loss Loss of weight Colon cancer screening Special screening for malignant neoplasms, colon Hypertension due to endocrine disorder (CMS/HCC)- Primary Type 2 diabetes mellitus with stage 3a chronic kidney disease, with long-term current use of insulin (HCC) (CMS/HCC) Unspecified protein-calorie malnutrition (CMS/[facility]) Unspecified protein-calorie malnutrition Immunodeficiency due to conditions classified elsewhere ([facility]) Smoker Tobacco use disorder Inguinal hernia of left side without obstruction or gangrene Screening for colon cancer Special screening for malignant neoplasms, colon Encounter for vaccination Routine general medical examination at health care facility- Primary Routine general medical examination at a health care facility Type 2 diabetes mellitus without complication, unspecified whether 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 insulin use Type 2 diabetes mellitus with stage 3a chronic kidney disease, with long-term current use of insulin (HCC) ([facility]) Chronic obstructive pulmonary disease, unspecified Unintentional weight loss of 10% body weight within 6 months Elevated PSA Elevated prostate specific antigen (PSA) Bilateral hearing loss, unspecified hearing loss type documented in this encounter [facility] Evaluation note Note Date & Type Note Facility Evaluation note Diagnosis Type 2 diabetes mellitus without complication, unspecified whether 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 insulin use (HCC) Hypertension due to endocrine disorder Otalgia of both ears- Primary Ear drainage, bilateral Acute low back pain without sciatica, unspecified back pain laterality Chronic swimmer's ear of both sides Type 2 diabetes mellitus without complication, without long-term current use of insulin (HCC)- Primary Pain and swelling of left lower extremity Ear drainage, bilateral Acute kidney injury superimposed on chronic kidney disease Primary insomnia Persistent disorder of initiating or maintaining sleep Routine general medical examination at health care facility- Primary Routine general medical examination at a health care facility Pure hypercholesterolemia Pure hypercholesterolemia Essential hypertension, benign Essential hypertension, benign Screening for malignant neoplasm of colon Type 2 diabetes mellitus without complication, unspecified whether mcc insulin use (HCC) Infrarenal abdominal aortic aneurysm (AAA) without rupture Medicare annual wellness visit, subsequent Type 2 diabetes mellitus with stage 3a chronic kidney disease, with long-term current use of insulin (HCC) Essential hypertension, benign- Primary Essential hypertension, benign Type 2 diabetes mellitus without complication, unspecified whether mcc insulin use (HCC) Type 2 diabetes mellitus with stage 3a chronic kidney disease, with long-term current use of insulin (HCC) Pure hypercholesterolemia Pure hypercholesterolemia Weight loss Loss of weight Colon cancer screening Special screening for malignant neoplasms, colon Hypertension due to endocrine disorder- Primary Type 2 diabetes mellitus with stage 3a chronic kidney disease, with long-term current use of insulin (HCC) Unspecified protein-calorie malnutrition ([facility]) Unspecified protein-calorie malnutrition Immunodeficiency due to conditions classified elsewhere (HCC) Smoker Tobacco use disorder Inguinal hernia of left side without obstruction or gangrene Screening for colon cancer Special screening for malignant neoplasms, colon Encounter for vaccination Routine general medical examination at health care facility- Primary Routine general medical examination at a health care facility Type 2 diabetes mellitus without complication, unspecified whether mcc insulin use (HCC) Type 2 diabetes mellitus with stage 3a chronic kidney disease, with long-term current use of insulin (HCC) Chronic obstructive pulmonary disease, unspecified (HCC) Unintentional weight loss of 10% body weight within 6 months Elevated PSA Elevated prostate specific antigen (PSA) Bilateral hearing loss, unspecified hearing loss type Inguinal hernia of left side without obstruction or gangrene- Primary Primary insomnia Persistent disorder of initiating or maintaining sleep Elevated PSA Elevated prostate specific antigen (PSA) documented in this encounter [facility] Summary Purpose Family History No Family History [...] section and content) DATE CREATED AUTHOR 10/16/2017 [facility] DATE CREATED AUTHOR AUTHOR'S ORGANIZ ATION 03/28/2022 [facility] DATE CREATED AUTHOR AUTHOR'S ORGANIZ ATION 07/31/2024 [facility] DATE CREATED AUTHOR AUTHOR'S ORGANIZ ATION 08/27/2024 [facility] DATE CREATED AUTHOR AUTHOR'S ORGANIZ ATION 11/25/2024 [facility] Care Teams (unrecognized sec tion and content) French Binder Relationship Specialty Start Date End Date Alda Shea MD [address] [place] [address] [place] [address] PCP - General Family Medicine 09/08/22 French Binder Relationship Specialty Start Date End Date Alda Shea MD [address] [place] [address] [place] [address] PCP - General Family Medicine 09/08/22 Alda Shea MD [address] [facility] 110 [place] [address] PCP - ACO Reach 05/25/23 French Binder Relationship Specialty Start Date End Date Alda Shea MD [address] [facility] 110 [place] [address] PCP - General Family Medicine 09/08/22 French Binder Relationship Specialty Start Date End Date Alda Shea MD [address] [facility] [address] [place] [address] PCP - General Family Medicine 09/08/22 French Binder Relationship Specialty Start Date End Date Alda Shea MD [address] [facility] [address] [place] [address] PCP - General Family Medicine 09/08/22 Reason for Visit (unrecogniz ed section and content) Reason Comments Diabetes Last A1c was 6.9 Reason Comments Medicare Annual Wellness Visit Subsequen t Reason Comments Hypertension FOR RECORDS PERTAINING TO PATIENTS WHO ARE [...] BE BASED ON THE PRIMARY CLINICAL RECORDS. [facility] [employer] [facility]. provides no warranty or guarantee of the accuracy or completeness of information in this document.
--- OUTSIDE RECORDS SUMMARY | 2024-11-26 01:10 | XMS_ITS | Clinical Summary ---
Author Organization [facility] Address [address], [address] [place] [address] Care Team Providers Care Community Health Planning Director Name Role Phone Alda Osborne MD Primary Care Provider [phone] Allergies No known active allergies Medications pravastatin (PRAVACHOL) 40 MG tablet Take 40 mg by mouth daily. Active lisinopril (PRINIVIL;ZESTRI L) 20 MG tablet Take 20 mg by mouth daily. Active pioglitazone-met formin (ACTOPLUS MET) 15-500 MG per tablet Take 1 tablet by mouth 3 times daily. Active fluticasone-salm eterol (ADVAIR) 250-50 MCG/DOSE AEPB Inhale 1 puff into the lungs 2 times daily. Active carvedilol (COREG) 6.25 MG tablet Take 6.25 mg by mouth 2 times daily (with meals). Active aspirin 81 MG tablet Take 81 mg by mouth daily. Active glimepiride (AMARYL) 2 MG tablet Take 1 tablet by mouth daily (with breakfast). 30 tablet 0 12/13/2012 Active vitamin B-12 (CYANOCOBALAMIN) 500 MCG tablet Take 500 mcg by mouth daily Active Cetirizine HCl 10 MG CAPS Take by mouth daily Active Active Problems Problem Noted Date Diagnosed Date DM (diabetes mellitus) 12/12/2012 Resolved Problems Problem Noted Date Diagnosed Date Resolved Date Ectropion due to laxity of eyelid, left 10/15/2017 10/15/2017 Immunizations Immunization Administration Dates Next Due TDaP, ADACEL (age 10y-64y), BOOSTRIX (age 10y+), IM, 0.5mL 12/11/2012 Social History Tobacco Use Types Packs/Day Years Used Date Smoking Tobacco: Former Smokeless Tobacco: Never Alcohol Use Standard Drinks/Week Comments No 0 (1 standard drink = 0.6 oz pur e alcohol) Sex and Gender Information Value Date Recorded Sex Assigned at Not on file Legal Sex Male 11:44 AM EST Gender Identity Not on file Sexual Orientation Not on file Last Filed Vital Signs Vital Sign Reading Time Taken Comments Blood Pressure 121/70 10/15/2017 12:50 PM EDT Pulse 72 10/15/2017 12:50 PM EDT Temperature 36.2 C (97.2 F) 10/15/2017 12:20 PM EDT Respiratory Rate 18 10/15/2017 12:50 PM EDT Oxygen Saturation 98% 10/15/2017 12:50 PM EDT Inhaled Oxygen Concentration - - Weight 59 kg (130 lb) 10/15/2017 10:21 AM EDT Height 172.7 cm (5' 8 ) 10/15/2017 10:21 AM EDT Body Mass Index 19.77 10/15/2017 10:21 AM EDT Plan of Treatment Not on file Insurance [employer] Advance Directives * Full Code (Latest Code Status on File) Date Activated Date Inactivated Comments 10/15/2017 11:04 AM 10/15/2017 3:10 PM * Full Code Date Activated Date Inactivated Comments 12/11/2012 11:07 PM 12/13/2012 5:27 PM Care Teams Community Health Planning Director Relationship Specialty Start Date End Date Alda Osborne MD PCP - General Family Medicine 10/09/17
--- OUTSIDE RECORDS SUMMARY | 2024-11-26 01:11 | XMS_ITS | Encounter Summary ---
Author Organization [facility] Address [address] [facility] [place] [address] Care Team Providers Care Facilities Engineer Name Role Phone Alda Osborne MD Primary Care Provider [phone] Encounter Details Date Type Department Care Team (Latest Contact Info) Description 11/25/2024 Travel Social History Tobacco Use Types Packs/Day Years [...] any clubs o r organizations such as judaism groups, unions, fraternal or athletic groups, or [...] Recorded Patient Health Questionnaire-2 Score 0 11/25/2024 [facility] - Occupational Stress Questionnaire Answer Date Recorded [...] place to sleep or slept in a mcfp (including now)? No 01/25/2023 Sex and Gender Information Value Date Recorded Sex Assigned at Not on file Legal Sex Male 6:46 PM EDT Gender Identity Not on file Sexual Orientation Not on file documented as of this encounter Functional Status * Over the [...] Blevins [place] documented as of this encounter Plan of Treatment Upcoming Encounters Date Type Department Care Team (Late st Contact Info) Description 12/09/2024 11:00 AM EDT Office Visit [facility] [place] [address] [place] [address] [place] [address] Alda Osborne MD [address] [place] [address] [place] [address] documented as of this encounter Visit Diagnoses Not on filedocumented in this encounter Care Teams Facilities Engineer Relationship Specialty Start Date End Date Alda Osborne MD [address] [place] [address] [place] [address] PCP - General Family Medicine 09/08/22 documented as of this encounter
--- OUTSIDE RECORDS SUMMARY | 2024-11-26 01:11 | XMS_ITS | Encounter Summary ---
Author Organization [facility] Address [address] [facility] [place] [address] Care Team Providers Care Personal Financial Planner Name Role Phone Alda Osborne MD Primary Care Provider [phone] Alda Osborne MD Unavailable Joan Calvo RN Unavailable [phone] Alda Osborne MD Unavailable Encounter Details Date Type Department Care Team (Late st Contact Info) Description 04/04/2023 Abstract [facility] [place] [facility] [address] [facility] 110 [place] [address] Alda Osborne MD [address] [facility] 110 [place] [address] Social History Tobacco Use Types Packs/Day Years [...] often do you attend chur ch or gnosticist services? Never 01/25/2023 Do you belong to any clubs o r organizations such as shinto groups, unions, fraternal or athletic groups, or [...] and heating? Not hard at all 01/25/2023 [facility] Occupat ional Health - Occupational Stress Questionnaire Answer Date Recorded [...] place to sleep or slept in a fci (including now)? No 01/25/2023 Sex and Gender [...] Visit [facility] [place] [address] [facility] 110 [place] [address] Alda Osborne MD [address] [facility] 110 [place] [address] documented as of this encounter Visit Diagnoses Not on filedocumented in this encounter Care Teams Personal Financial Planner Relationship Specialty Start Date End Date Alda Osborne MD [address] [facility] 110 [place] [address] PCP - General Family Medicine 09/08/22 Alda Osborne MD [address] [facility] 110 [place] [address] PCP - ACO Reach 05/25/23 05/01/24 Alda Osborne MD [address] [facility] 110 [place] [address] PCP - ACO Reach 05/09/24 06/26/24 Joan Calvo, PATI [address] [place] [address] Clinical Advocate Family Medicine 05/02/24 05/23/24 documented as of this encounter
--- OUTSIDE RECORDS SUMMARY | 2024-11-26 01:11 | XMS_ITS | Encounter Summary ---
Author Organization [facility] Address [address] [facility] [place] [address] Care Team Providers Care Dedenter Name Role Phone Alda Shea MD Primary Care Provider [phone] Alda Shea MD Unavailable Joan Calvo RN Unavailable [phone] Alda Shea MD Unavailable Encounter Details Date Type Department Care Team (Late st Contact Info) Description 04/20/2023 Clinisync Result Encounter [facility] External Department Unsolicited Juliet Black PA [address] [place] [address] [place] [address] Social History Tobacco Use Types Packs/Day Years [...] often do you attend chur ch or holiness services? Never 01/25/2023 Do you belong to any clubs o r organizations such as jainism groups, unions, fraternal or athletic groups, or [...] and heating? Not hard at all 01/25/2023 [facility] of Occupat ional Health - Occupational Stress [...] place to sleep or slept in a care home (including now)? No 01/25/2023 Sex and Gender Information Value Date Recorded Sex Assigned at Not on file Legal Sex Male 6:46 PM EDT Gender Identity Not on file Sexual Orientation Not on file documented as of this encounter Plan of Treatment Upcoming Encounters Date Type Department Care Team (Late st Contact Info) Description 12/09/2024 11:00 AM EDT [facility] [place] [facility] 110 [place] [address] Alda Shea MD 112 [facility] 110 [place] [address] documented as of this encounter Procedures Procedure Name Priority Date/Time Associated Diagnosis Comments ECG 12-LEAD 04/20/2023 1:28 PM EST documented in this encounter Results * ECG 12-LEAD (04/20/2023 1:28 PM EST) Anatomical Region Laterality Modality Other 04/20/2023 1:28 PM EST Narrative 04/22/2023 10:39 AM EST The [address] [address] Electrocardiograph Report Signed Patient: FREIDA DOUGHERTY MR#: [id number] : 1950 Acct:[id number] Age/Sex: 72 / M ADM Date: 04/20/23 Loc: [place] 213-[address]: Terry Bailey M.D. Ordering Physician: Juliet Black Date of Service: 04/20/23 Procedure(s): ECG 12 lead Accession Number(s): [id number] cc: [facility] Test Date: 2023-04-20 Pat Name: FREIDA DOUGHERTY Department: Room: - Gender: Male Transcript Evaluator: : 1950 Requested By: ALDA SHEA Order Number: [id number] Reading MD: JOSUE ALBERT Measurements Intervals [place] Rate: 100 P: 82 [place]: 186 QRS: 88 QRSD: 100 T: 79 QT: 338 QTc: 395 Interpretive Statements 1120 Sinus tachycardia 6120 Possible right atrial enlargement 0102 ARTIFACT PRESENT 9140 abnormal rhythm ECG Compared to ECG 10/29/2022 11:21:26 Ventricular premature complex(es) no longer present Electronically Signed On 04-22-2023 10:39:21 EST by JOSUE ALBERT Dictated By: Josue Albert D.O. Signed By: 04/22/23 1039 DD/ 1328 TD/TT: Dry Chain Puller: Procedure Note Radiology, Radiologist, MD - 04/22/2023 [place] [address] Electrocardiograph Report Signed Patient: FREIDA DOUGHERTY EMR#: [id number] : 9Acct:[id number] Age/Sex: 72 / MADM Date: 04/20/23 Loc: [place] 213-[address]: Terry Bailey M.D. Ordering Physician: Juliet Black Date of Service: 04/20/23 Procedure(s): ECG 12 lead Accession Number(s): [id number] cc: [facility] Test Date: 2023-04-20 Pat Name: FREIDA DOUGHERTY Department: Room: - Gender: Male Transcript Evaluator: : 1950 Requested By: ALDA SHEA Order Number: [id number] Reading MD: JOSUE ALBERT Measurements Intervals [place] Rate: 100 P: 82 [place]: 186 QRS: 88 QRSD: 100 T: 79 QT: 338 QTc: 395 Interpretive Statements 1120 Sinus tachycardia 6120 Possible right atrial enlargement 0102 ARTIFACT PRESENT 9140 abnormal rhythm ECG Compared to ECG 10/29/2022 11:21:26 Ventricular premature complex(es) no longer present Electronically Signed On 04-22-2023 10:39:21 EST by JOSUE ALBERT Dictated By: Josue Albert D.O. Signed By:04/22/23 1039 DD/ 1328 TD/TT: Dry Chain Puller: Juliet [facility] Final Result documented in this encounter Visit Diagnoses Not on filedocumented in this encounter Care Teams Dedenter Relationship Specialty Start Date End Date Alda Shea MD [address] [facility] 110 [place] [address] PCP - General Family Medicine 09/08/22 Alda Shea MD [address] [facility] 110 [place] [address] PCP - ACO Reach 05/25/23 05/01/24 Alda Shea MD [address] [facility] 110 [place] [address] PCP - ACO Reach 05/09/24 06/26/24 Joan Calvo, RN [address] [place], [place] [address] Clinical Advocate Family Medicine 05/02/24 05/23/24 documented as of this encounter
--- OUTSIDE RECORDS SUMMARY | 2024-11-26 01:11 | XMS_ITS | Encounter Summary ---
Author Organization [facility] Address [address] [facility] [place] [address] Care Team Providers Care Ethylene Plant Operator Name Role Phone Alda Osborne MD Primary Care Provider [phone] Alda Osborne MD Unavailable Joan Calvo RN Unavailable [phone] Alda Osborne MD Unavailable Encounter Details Date Type Department Care Team (Late st Contact Info) Description 04/23/2023 Abstract [facility] [place] [facility] [address] [facility] 110 [place] [address] Alda Osborne MD [address] [facility] 110 [place] [address] Social History Tobacco Use Types Packs/Day Years [...] often do you attend chur ch or sikhism services? Never 01/25/2023 Do you belong to any clubs o r organizations such as christianity groups, unions, fraternal or athletic groups, or [...] and heating? Not hard at all 01/25/2023 [facility] of Occupat ional Health - Occupational Stress [...] place to sleep or slept in a penitentiary (including now)? No 01/25/2023 Sex and Gender [...] Visit [facility] [place] [address] [facility] 110 [place] [address] Alda Osborne MD [address] [facility] 110 [place] [address] documented as of this encounter Visit Diagnoses Not on filedocumented in this encounter Care Teams Ethylene Plant Operator Relationship Specialty Start Date End Date Alda Osborne MD [address] [facility] 110 [place] [address] PCP - General Family Medicine 09/08/22 Alda Osborne MD [address] [facility] 110 [place] [address] PCP - ACO Reach 05/25/23 05/01/24 Alda Osborne MD [address] [facility] [address] [place] [address] PCP - ACO Reach 05/09/24 06/26/24 Joan Calvo, PATI [address] [place] [address] Clinical Advocate Family Medicine 05/02/24 05/23/24 documented as of this encounter
--- OUTSIDE RECORDS SUMMARY | 2024-11-26 01:11 | XMS_ITS | Encounter Summary ---
Author Organization [facility] Address [address] [facility] [place] [address] Care Team Providers Care Associate Professor Of Violin Name Role Phone Alda Osborne MD Primary Care Provider [phone] Alda Osborne MD Unavailable Joan Calvo RN Unavailable [phone] Alda Osborne MD Unavailable Encounter Details Date Type Department Care Team (Late st Contact Info) Description 04/23/2023 Abstract [facility] [place] [facility] [address] [facility] 110 [place] [address] Alda Osborne MD [address] [facility] 110 [place] [address] Social History Tobacco Use Types Packs/Day Years [...] often do you attend chur ch or evangelical services? Never 01/25/2023 Do you belong to any clubs o r organizations such as mu-ism groups, unions, fraternal or athletic groups, or [...] and heating? Not hard at all 01/25/2023 [facility] of Occupat ional Health - Occupational [...] place to sleep or slept in a half-way (including now)? No 01/25/2023 Sex and Gender [...] Visit [facility] [place] [address] [facility] 110 [place] [address] Alda Osborne MD [address] [facility] 110 [place] [address] documented as of this encounter Visit Diagnoses Not on filedocumented in this encounter Care Teams Associate Professor Of Violin Relationship Specialty Start Date End Date Alda Osborne MD [address] [facility] 110 [place] [address] PCP - General Family Medicine 09/08/22 Alda Osborne MD [address] [facility] 110 [place] [address] PCP - ACO Reach 05/25/23 05/01/24 Alda Osborne MD [address] [facility] 110 [place] [address] PCP - ACO Reach 05/09/24 06/26/24 Joan Calvo, PATI [address] [place] [address] Clinical Advocate Family Medicine 05/02/24 05/23/24 documented as of this encounter
--- OUTSIDE RECORDS SUMMARY | 2024-11-26 01:11 | XMS_ITS | Encounter Summary ---
Author Organization [facility] Address [address] [facility] [place] [address] Care Team Providers Care Entertainment Reporter Name Role Phone Alda Osborne MD Primary Care Provider [phone] Alda Osborne MD Unavailable Joan Calvo RN Unavailable [phone] Alda Osborne MD Unavailable Encounter Details Date Type Department Care Team (Late st Contact Info) Description 04/23/2023 [facility] [address] [place] 110 [place] [id number] A, Unknown Practice [address] [id number] Social History Tobacco Use Types Packs/Day Years [...] often do you attend chur ch or adventist services? Never 01/25/2023 Do you belong to any clubs o r organizations such as orthodox groups, unions, fraternal or athletic groups, or [...] and heating? Not hard at all 01/25/2023 [facility] of Occupat ional Health - [...] place to sleep or slept in a jail (including now)? No 01/25/2023 Sex and Gender Information Value Date Recorded Sex Assigned at Not on file Legal Sex Male 6:46 PM EDT Gender Identity Not on file Sexual Orientation Not on file documented as of this encounter Plan of Treatment Upcoming Encounters Date Type Department Care Team (Late st Contact Info) Description 12/09/2024 11:00 AM EDT Office Visit [facility] [place] [address] [facility] 110 [place] [address] Alda Osborne MD [address] [facility] 110 [place] [address] documented as of this encounter Procedures Procedure Name Priority Date/Time Associated Diagnosis Comments ELECTROCARDIOGRAM REPORT Routine 024 10:01 AM EST XR CHEST 2 VIEWS Routine 04/20/2023 9:43 AM EST documented in this encounter Results * Electrocardiogram Report (04/20/2023 10:01 AM EST) us Unknown Practice A IN CLINIC/BEDSIDE ORDERABLES Final Result * XR chest 2 views (04/20/2023 9:43 AM EST) Anatomical Region Laterality Modality Chest Radiographic Ayla ging us Unknown Practice A IMG XR PROCEDURES Final Resul t documented in this encounter Visit Diagnoses Not on filedocumented in this encounter Care Teams Entertainment Reporter Relationship Specialty Start Date End Date Alda Osborne MD [address] [facility] 110 [place] [address] PCP - General Family Medicine 09/08/22 Alda Osborne MD [address] [facility] 110 [place] [address] PCP - ACO Reach 05/25/23 05/01/24 Alda Osborne MD [address] [facility] 110 [place] [address] PCP - ACO Reach 05/09/24 06/26/24 Joan Calvo, RN [address] [place], [place] [address] Clinical Advocate Family Medicine 05/02/24 05/23/24 documented as of this encounter
--- OUTSIDE RECORDS SUMMARY | 2024-11-26 01:11 | XMS_ITS | Encounter Summary ---
Author Organization [facility] Address [address] [facility] [place] [address] Care Team Providers Care Soap Drier Operator Name Role Phone Alda Osborne MD Primary Care Provider [phone] Alda Osborne MD Unavailable Joan Calvo RN Unavailable [phone] Alda Osborne MD Unavailable Encounter Details Date Type Department Care Team (Late st Contact Info) Description 02/07/2024 Abstract [facility] [place] [facility] [address] [facility] 110 [place] [address] Alda Osborne MD [address] [facility] 110 [place] [address] Social History Tobacco Use Types Packs/Day Years [...] often do you attend chur ch or anglican services? Never 01/25/2023 Do you belong to any clubs o r organizations such as scientology groups, unions, fraternal or athletic groups, or [...] Date Recorded Patient Health Questionnaire-2 Score 0 06/14/2023 [facility] - Occupational Stress Questionnaire Answer Date [...] place to sleep or slept in a residential (including now)? No 01/25/2023 Sex and Gender [...] Visit [facility] [place] [address] [place] [address] [place] [address] Alda Osborne MD [address] [facility] 110 [place] [address] documented as of this encounter Visit Diagnoses Not on filedocumented in this encounter Care Teams Soap Drier Operator Relationship Specialty Start Date End Date Alda Osborne MD [address] [facility] 110 [place] [address] PCP - General Family Medicine 09/08/22 Alda Osborne MD [address] [place] [address] [place] [address] PCP - ACO Reach 05/25/23 05/01/24 Alda Osborne MD 112 [facility] 110 [place] [address] PCP - ACO Reach 05/09/24 06/26/24 Joan Calvo, RN [address] [place] [address] Clinical Advocate Family Medicine 05/02/24 05/23/24 documented as of this encounter
--- OUTSIDE RECORDS SUMMARY | 2024-11-26 01:11 | XMS_ITS | Encounter Summary ---
Author Organization [facility] Address [address] [facility] [place] [address] Care Team Providers Care Purchasing Engineer Name Role Phone Alda Osborne MD Primary Care Provider [phone] Alda Osborne MD Unavailable Joan Calvo RN Unavailable [phone] Alda Osborne MD Unavailable Encounter Details Date Type Department Care Team (Late st Contact Info) Description 04/23/2023 Abstract [facility] [place] [facility] [address] [facility] 110 [place] [address] Alda Osborne MD [address] [facility] 110 [place] [address] Social History Tobacco Use Types Packs/Day Years [...] often do you attend chur ch or judaism services? Never 01/25/2023 Do you belong to any clubs o r organizations such as jehovah's witness groups, unions, fraternal or athletic groups, or [...] and heating? Not hard at all 01/25/2023 [facility] of Occupat ional Health - Occupational [...] place to sleep or slept in a prison (including now)? No 01/25/2023 Sex and Gender [...] Visit [facility] [place] [address] [facility] 110 [place] [address] Alda Osborne MD [address] [facility] 110 [place] [address] documented as of this encounter Visit Diagnoses Not on filedocumented in this encounter Care Teams Purchasing Engineer Relationship Specialty Start Date End Date Alda Osborne MD [address] [facility] 110 [place] [address] PCP - General Family Medicine 09/08/22 Alda Osborne MD [address] [facility] 110 [place] [address] PCP - ACO Reach 05/25/23 05/01/24 Alda Osborne MD [address] [facility] 110 [place] [address] PCP - ACO Reach 05/09/24 06/26/24 Joan Calvo, PATI [address] [place] [address] Clinical Advocate Family Medicine 05/02/24 05/23/24 documented as of this encounter
--- OUTSIDE RECORDS SUMMARY | 2024-11-26 01:11 | XMS_ITS | Clinical Summary ---
Author Organization [facility] Healthcare Address [address] [place] [address] Care Team Providers Care Speech And Hearing Director Name Role Phone Alda Osborne MD Primary Care Provider Allergies No known active allergies Medications aspirin 81 MG chewable tablet Chew 81 mg 1 (one) time. Active Tgqmwyk-Jpxxzhtwxmo-Dky moterol (Breztri Aerosphere) 160-9-4.8 MCG/ACT aerosol Inhale 2 puffs every 12 (twelve) hours. Active hydrOXYzine HCl (Atarax) 25 MG tablet Take 25 mg by mouth in the morning and 25 mg at noon and 25 mg in the evening and 25 mg before bedtime. 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 16 g 3 Active insulin glargine (Lantus SoloStar) 100 UNIT/ML penIndications:Type 2 diabetes mellitus without complication, without long-term current use of insulin (HCC) Inject 8 Units under the skin at bedtime 7.2 mL 3 024 2024 Active lisinopril 20 MG tabletIndications:Essen tial hypertension, benign Take 1 tablet (20 mg) by mouth Daily 100 tablet 3 Active carvedilol (Coreg) 6.25 MG tabletIndications:Essen tial hypertension, benign Take 1 tablet (6.25 mg) by mouth in the morning and 1 tablet (6.25 mg) before bedtime. 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 Take with meals. 180 tablet 3 025 2025 Active insulin lispro protamine-insulin lispro (HumaLOG Mix 75-25) (75-25) 100 UNIT/ML injectionIndications:Ty pe 2 diabetes mellitus without complication, unspecified whether halfway insulin use (HCC),Type 2 diabetes mellitus with stage 3a chronic kidney disease, with long-term current use of insulin (HCC) Inject 10 Units under the skin in the morning and 10 Units in the evening. Inject with meals. 3 mL 12 025 2025 Active pravastatin (Pravachol) 40 MG tabletIndications:Pure hypercholesterolemia Take 1 tablet (40 mg) by mouth Daily 100 tablet 3 Active ondansetron ODT (Zofran-ODT) 4 MG disintegrating tablet DISSOLVE 1 tablet on top OF tongue EVERY 6 HOURS NEEDED FOR NAUSEA AND VOMITING Active zolpidem (Ambien) 10 MG tabletIndications:Prima ry insomnia Take 1 tablet (10 mg) by mouth as needed at bedtime for sleep 30 tablet 025 2024 Active ciprofloxacin (Cipro) 500 MG tabletIndications:[place] hermelindo PSA Take 1 tablet (500 mg) by mouth in the morning and 1 tablet (500 mg) before bedtime. Do all this for 14 days. 28 tablet 025 2024 Active zolpidem (Ambien) 10 MG tabletIndications:Prima ry insomnia Take 1 tablet (10 mg) by mouth as needed at bedtime for sleep 30 tablet 024 2024 Andry washington(Reo rder) Active Problems Problem Noted Date Diagnosed Date Primary insomnia 11/25/2024 Assessment & Plan (11/25/2024 11:12 AM EDT): Meds refilled Patient's Medicine is effective at controlling symptoms at current dose and frequency. PDMP reviewed with no evidence of overuse and abuse D/W patient to avoid use of benzodiazepines when consuming alcohol Advised against operating heavy machinery and driving long distances while on medicines. 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 Referral made Increase Calories Assessment & Plan (09/17/2023 1:56 PM EDT): Last Colonoscopy 2013 Last CXR was in March and No acute disease Routine general medical examination at [facility] 06/14/2023 Assessment & Plan (08/04/2024 1:25 PM EDT): Colonoscopy every 10 years or Cologuard every [...] Ultrasound of Aorta to screen for Anuerysm Assessment & Plan (06/14/2023 3:38 PM EDT): Colonoscopy every 10 years or Cologuard every [...] screen for Anuerysm Type 2 diabetes mellitus wit h stage 3a chronic kidney disease, with long-term current use of insulin 06/14/2023 Assessment & Plan (08/04/2024 1:24 PM EDT): No Tobacco use Follow ADA 1800 diet [...] and importance of healthy diet and exercise. Assessment & Plan (02/05/2024 1:48 PM EST): No Tobacco use Follow ADA 1800 diet [...] and importance of healthy diet and exercise. Assessment & Plan (09/17/2023 1:45 PM EDT): No Tobacco use Follow ADA 1800 diet [...] and importance of healthy diet and exercise. Assessment & Plan (06/14/2023 3:41 PM EDT): No Tobacco use Follow ADA 1800 diet [...] and importance of healthy diet and exercise. Acute kidney injury superimposed on chronic kidn ey disease 04/30/2023 Assessment & Plan (04/30/2023 12:19 PM EST): Improved Otalgia of both ears 04/19/2023 Ear drainage, bilateral 04/19/2023 Acute low back pain without sciatica 04/19/2023 Assessment & Plan (04/19/2023 1:42 PM EST): I discussed with patient that while on prednisone, do not take any NSAIDs like Ibuprofen, Naprosyn, Alleve or motrin. Watch for any side effects like abdominal pain and nausea. Take the prednisone with food or milk. Prednisone may increase appetite. While on prednisone, watch for any sugar elevations. Type 2 diabetes mellitus without complication Assessment & Plan (11/20/2022 1:52 PM EDT): No Tobacco use Follow ADA 1800 diet [...] and importance of healthy diet and exercise. Smoker 09/08/2022 Assessment & Plan (02/05/2024 1:55 PM EST): Discussed smoking cessation with the patient. Encouraged patient to try to cut back gradually and soon quit smoking. Discussed ways to quit smoking including gum, patches, medication, and gradually reducing the number of cigarettes smoked daily. Discussed potential health risks of halfway smoking. Patient voiced understanding. Benefits of cessation, both health and financial, were reviewed. 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 DASH diet handouts Assessment & Plan (11/20/2022 1:52 PM EDT): Our specific goals, for your hypertension, is [...] taking them as prescribed. 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 Chronic obstructive pulmonar y disease with (acute) lower respiratory infection 09/08/2022 Chronic obstructive pulmonar y disease with acute exacerbation 09/08/2022 Otitis externa 09/08/2022 Assessment & Plan (04/19/2023 1:43 PM EST): Add Probiotic to help replenish the good bacteria that are destroyed by the Antibiotics Florastor Florajen Align or try Activia in Yogurt Probiotics reduce the risk of antibiotic induced diarrhea Pure hypercholesterolemia 09/08/2022 Assessment & Plan (09/17/2023 1:45 PM EDT): This is a chronic medical condition that is stable since last assessment. No changes in treatment are suggested at this time. Continue Current meds. Chronic conjunctivitis of left eye 09/08/2022 Essential hypertension, benign 09/08/2022 Assessment & Plan (09/17/2023 1:47 PM EDT): Our specific goals, for your hypertension, is [...] taking them as prescribed. DASH diet handouts Assessment & Plan (06/14/2023 3:40 PM EDT): Our specific goals, for your hypertension, is [...] taking them as prescribed. DASH diet handouts Anxiety 09/08/2022 Adjustment disorder with anxiety 09/08/2022 Resolved Problems Problem Noted Date Diagnosed Date Resolved Date Severe acute respiratory syn drome coronavirus 2 (SARS-CoV-2) detected 09/08/2022 09/08/2022 Encounters Date Type Department Care Team Description 11/25/2024 10:30 AM EDT Office Visit [facility] [place] [facility] [address] [place] [id number] Alda Osborne MD Inguinal hernia of left side without obstruction or gangrene (Primary Dx); Primary insomnia; Elevated PSA 11/25/2024 Travel 09/23/2024 Refill [facility] [place] [facility] [address] [place] [address] [place] [address] Joan Blevins MA Pure hypercholesterolemia from Last 3 Months Immunizations Immunization Administration Dates Next Due Influenza, High Dose Seasona l, Preservative Free 02/02/2022 Influenza, High-dose Seasona l, Quadrivalent, Preservative Free 02/05/2024,02/06/2023,03/09/2021,02/06,02/01/2018,12/28/2016 Influenza, recombinant, quad rivalent, injectable, preservative free 01/07/2020 Influenza, seasonal, injecta ble, preservative free 12/29/2011 Pneumococcal Conjugate PCV 13 08/02/2015, 016 Pneumococcal Polysaccharide PPSV23 01/11/2017 TD (adult), 2 Lf tetanus tox oid, preservative free, adsorbed 12/11/2012 Zoster, live 07/30/2015 Social History Tobacco Use Types Packs/Day Years Used Date Smoking Tobacco: Every Day Cigarettes Smokeless Tobacco: Never Tobacco Cessation:Ready to Q uit: Not Asked; Counseling Given: Not Answered Comments:6-10 cigarettes/day Alcohol Use Standard Drinks/Week Comments [...] week 01/25/2023 How often do you attend [facility] or rastafarian services? Never 01/25/2023 Do you belong to any clubs o r organizations such as buddhist groups, unions, fraternal or athletic groups, or [...] Recorded Patient Health Questionnaire-2 Score 0 11/25/2024 [facility] - Occupational Stress Questionnaire Answer [...] AM EDT Temperature - - Respiratory Rate 16 11/20/2022 1:45 PM EDT Oxygen Saturation 98% 11/25/2024 10:32 AM EDT Inhaled Oxygen Concentration - - Weight 44.5 kg (98 lb) 11/25/2024 10:32 AM EDT Height 167.6 cm (5' 6 ) 11/25/2024 10:32 AM EDT Body Mass Index 15.82 11/25/2024 10:32 AM EDT Plan of Treatment Upcoming Encounters Date Type Department Care Team (Late st Contact Info) Description 12/09/2024 11:00 AM EDT [facility] [place] [facility] [address] [facility] [address] [place] [address] Alda Osborne MD [address] [facility] [address] [place] [address] Health Maintenance Due Date Last Done Comments CT Colonography 1948 FIT-DNA 1948 FIT 1948 FOBT 1950 Sigmoidoscopy 1948 Diabetes: Retinopathy Screening 09/17/2020 9 Colonoscopy 02/13/2024 02/12/2014, 02/12/2014 Colorectal Cancer Screening 02/13/2024 Diabetes: Hemoglobin A1C 10/25/2024 025, 02/05/2024, 09/17/2023, Additional history exists Influenza Vaccine (#1) 2024 , 02/06/2023, 02/02/2022, Additional history exists Diabetes: Urine Protein Screening 07/25/2025 07/25/2024, 07/09/2023, 06/20/2023, Additional history exists Medicare Annual Wellness (AWV) 08/04/2025 08/04/2024 , 06/14/2023 Pneumococcal Vaccine: 65+ Years Completed 01/11/2017, 08/02/2015, 07/30/2015 Procedures Procedure Name Priority Date/Time Associated Diagnosis Comments MICROALBUMIN / CREATININE URINE RATIO Routine 07/25/2024 9:36 AM EDT Type 2 diabetes mellitus with stage 3a chronic kidney disease, with long-term current use of insulin ([facility]) Medicare annual wellness visit, subsequent HEMOGLOBIN A1C Routine 07/25/2024 9:36 AM EDT Type 2 diabetes mellitus with stage 3a chronic kidney disease, with long-term current use of insulin ([facility]) Medicare annual wellness visit, subsequent COLOR FUNDUS PHOTOGRAPHY - OU - BOTH EYES Routine 09/17/2018 12:00 PM EDT Type 2 diabetes mellitus without complications ([facility]) Encounter for screening for eye and ear disorders COLONOSCOPY Routine 02/12/2014 12:00 PM EST from Last 3 Months or Most Recently Relevant to Health Maintenance Results * Microalbumin / creatinine urine ratio (07/25/2024 9:36 AM EDT) CREATININE, RANDOM URINE 61 20 - 320 mg/dL [facility] ALBUMIN, URINE 1.0 See Note: mg/dL [facility] Comment: Reference Range: Reference Range Not established ALBUMIN/CREATININE RATIO, RANDOM URINE 16 <30 mg/g creat [facility] Comment: The ADA defines abnormalities in albumin excretion as follows: Albuminuria Category Result (mg/g creatinine) Normal to Mildly increased <30 Moderately increased 30-299 Severely increased > OR = 300 The ADA recommends that at least two of three specimens collected within a 3-6 month period be abnormal before considering a patient to be within a diagnostic category. Urine Urine specimen obtained by clean catch procedure / Unknown 07/25/2024 9:36 AM EDT 07/26/2024 6:29 AM EDT Narrative [facility] - 07/28/2024 11:03 AM EDT FASTING:YES FASTING: YES Resulting Agency Comment Performing Organization Information Site ID: QPT Name: [facility] Address: [address] [place] [address] Director: Vito Fragoso MD Alda Osborne MD LAB URINE ORDERABLES Final Resul t Performing Organization Address [facility] de Phone Number [facility] * (ABNORMAL) Hemoglobin A1c (07/25/2024 9:36 AM EDT) Hemoglobin A1C 6.4(H) <5.7 % [facility] Comment: For someone without known diabetes, a [...] A1c for diagnosis of diabetes for children. Blood Venous blood specimen / Unknown 07/25/2024 9:36 AM EDT 07/26/2024 6:29 AM EDT Narrative [facility] - 07/28/2024 11:03 AM EDT FASTING:YES FASTING: YES Resulting Agency Comment Performing Organization Information Site ID: QPT Name: [facility] Address: [address] [place] [address] Director: Vito Fragoso MD us Alda Osborne MD LAB BLOOD ORDERABLES Final Resul t Performing Organization Address [facility] Co de Phone Number [facility] * Color Fundus Photography - OU - Both Eyes (09/17/2018 12:00 PM EDT) Anatomical Region Laterality Modality Head Fundus Photograp hy 09/17/2018 12:0 0 PM EDT Narrative 09/17/2018 12:00 PM EDT PERFORMED AT [facility] LOCATION:[id number] NDR Procedure Note CONVERSION, GENERIC - 08/09/2022 PERFORMED AT [facility] LOCATION:[id number] NDR Alda Osborne MD OPHTH PHOTOGRAPHY Final Result * Colonoscopy (02/12/2014 12:00 PM EST) Anatomical Region Laterality Modality Endoscopy 02/12/2014 12:0 0 PM EST Narrative 02/12/2014 12:00 PM EST PERFORMED AT [facility] LOCATION:[id number] Normal Procedure Note CONVERSION, GENERIC - 08/10/2022 PERFORMED AT [facility] LOCATION:[id number] Normal Alda Osborne MD ENDOSCOPY PROCEDURE ORDERABLES F inal Result from Last 3 Months or Most Recently Relevant to Health Maintenance Insurance [employer] MEDICARE [employer]VANTAGE Care Teams Speech And Hearing Director Relationship Specialty Start Date End Date Alda Osborne MD [address] [facility] [address] [place] [address] PCP - General Family Medicine 09/08/22
--- OUTSIDE RECORDS SUMMARY | 2024-11-26 01:11 | XMS_ITS | Encounter Summary ---
Author Organization [facility] Address [address] [facility] [place] [address] Care Team Providers Care Packer Denture Name Role Phone Alda Osborne MD Primary Care Provider [phone] Alda Osborne MD Unavailable Joan Calvo RN Unavailable [phone] Alda Osborne MD Unavailable Encounter Details Date Type Department Care Team (Late st Contact Info) Description 06/20/2023 Abstract [facility] [place] [facility] [address] [facility] [address] [place] [address] Alda Osborne MD [address] [facility] [address] [place] [address] Social History Tobacco Use Types Packs/Day Years [...] any clubs o r organizations such as protestant groups, unions, fraternal or athletic groups, or [...] Recorded Patient Health Questionnaire-2 Score 0 06/14/2023 [facility] - Occupational Stress Questionnaire Answer Date [...] place to sleep or slept in a [place] health care facility (including now)? No 01/25/2023 Sex and Gender [...] Visit [facility] [place] [address] [facility] [address] [place] [address] Alda Osborne MD [address] [facility] [address] [place] [address] documented as of this encounter Visit Diagnoses Not on filedocumented in this encounter Care Teams Packer Denture Relationship Specialty Start Date End Date Alda Osborne MD [address] [facility] [address] [place] [address] PCP - General Family Medicine 09/08/22 Alda Osborne MD [address] [facility] [address] [place] [address] PCP - ACO Reach 05/25/23 05/01/24 Alda Osborne MD [address] [facility] 110 [place] [address] PCP - ACO Reach 05/09/24 06/26/24 Joan Calvo, RN [address] [place] [address] Clinical Advocate Family Medicine 05/02/24 05/23/24 documented as of this encounter
--- OUTSIDE RECORDS SUMMARY | 2024-11-26 01:11 | XMS_ITS | Encounter Summary ---
Author Organization [facility] Address [address] [facility] [place] [address] Care Team Providers Care Manager Physical Name Role Phone Alda Osbrone MD Primary Care Provider [phone] Alda Osborne MD Unavailable Joan Calvo RN Unavailable [phone] Alda Osborne MD Unavailable Encounter Details Date Type Department Care Team (Late st Contact Info) Description 11/13/2023 Abstract [facility] [place] [facility] [address] [facility] [address] [place] [address] Alda Osborne MD [address] [facility] 110 [place] [address] Social History Tobacco Use Types Packs/Day Years [...] often do you attend chur ch or jewish services? Never 01/25/2023 Do you belong to any clubs o r organizations such as orthodoxy groups, unions, fraternal or athletic groups, or [...] Recorded Patient Health Questionnaire-2 Score 0 06/14/2023 [facility] - Occupational Stress Questionnaire Answer [...] place to sleep or slept in a senior care (including now)? No 01/25/2023 Sex and Gender [...] Visit [facility] [place] [address] [facility] [address] [place] [address] Alda Osborne MD [address] [facility] [address] [place] [address] documented as of this encounter Visit Diagnoses Not on filedocumented in this encounter Care Teams Manager Physical Relationship Specialty Start Date End Date Alda Osborne MD [address] [facility] [address] [place] [address] PCP - General Family Medicine 09/08/22 Alda Osborne MD [address] [facility] [address] [place] [address] PCP - ACO Reach 05/25/23 05/01/24 Alda Osborne MD [address] [facility] 110 [place] [address] PCP - ACO Reach 05/09/24 06/26/24 Joan Calvo, RN [address] [place] [address] Clinical Advocate Family Medicine 05/02/24 05/23/24 documented as of this encounter
--- OUTSIDE RECORDS SUMMARY | 2024-11-26 01:11 | XMS_ITS | Encounter Summary ---
Author Organization [facility] Address [address] [place] [place] [address] Care Team Providers Care Well Blower Name Role Phone Alda Osborne MD Primary Care Provider [phone] Alda Osborne MD Unavailable Joan Calvo RN Unavailable [phone] Alda Osborne MD Unavailable Encounter Details Date Type Department Care Team (Late st Contact Info) Description 04/30/2023 Orders Only [facility] [address] [place] [address] Cornelia Irwin MA Social History Tobacco Use Types Packs/Day Years [...] often do you attend chur ch or christianity services? Never 01/25/2023 Do you belong to any clubs o r organizations such as zoroastrian groups, unions, fraternal or athletic groups, or [...] and heating? Not hard at all 01/25/2023 [facility]at [facility] - Occupational Stress [...] place to sleep or slept in a long term (including now)? No 01/25/2023 Sex and Gender [...] Visit [facility] [place] [address] [facility] [address] [place] [address] Alda Osborne MD [address] [facility] 110 [place] [address] documented as of this encounter Visit Diagnoses Not on filedocumented in this encounter Care Teams Well Blower Relationship Specialty Start Date End Date Alda Osborne MD [address] [facility] 110 [place] [address] PCP - General Family Medicine 09/08/22 Alda Osborne MD [address] [facility] [address] [place] [address] PCP - ACO Reach 05/25/23 05/01/24 Alda Osborne MD [address] [facility] [address] [place] [address] PCP - ACO Reach 05/09/24 06/26/24 Joan Calvo, RN [address] [place] [address] Clinical Advocate Family Medicine 05/02/24 05/23/24 documented as of this encounter
--- OUTSIDE RECORDS SUMMARY | 2024-11-26 01:11 | XMS_ITS | Encounter Summary ---
Author Organization [facility] Address [address] [place] [address] Care Team Providers Care Helpdesk Analyst Name Role Phone Alda Osborne MD Primary Care Provider [phone] Alda Osborne MD Unavailable Joan Calvo RN Unavailable [phone] Alda Osborne MD Unavailable Encounter Details Date Type Department Care Team (Late st Contact Info) Description 04/23/2023 Abstract [facility] [place] [facility] [address] [facility] 110 [place] [address] Alda Osborne MD [address] [facility] 110 [place] [address] Social History Tobacco Use Types Packs/Day Years [...] often do you attend chur ch or scientology services? Never 01/25/2023 Do you belong to any clubs o r organizations such as uatsdin groups, unions, fraternal or athletic groups, or [...] Not hard at all 01/25/2023 [facility] - Occupational [...] place to sleep or slept in a group home (including now)? No 01/25/2023 Sex and [...] Visit [facility] [place] [address] [facility] [address] [place] [address] Alda Osborne MD [address] [facility] [address] [place] [address] documented as of this encounter Visit Diagnoses Not on filedocumented in this encounter Care Teams Helpdesk Analyst Relationship Specialty Start Date End Date Alda Osborne MD [address] [facility] 110 [place] [address] PCP - General Family Medicine 09/08/22 Alda Osborne MD [address] [facility] [address] [place] [address] PCP - ACO Reach 05/25/23 05/01/24 Alda Osborne MD [address] [facility] [address] [place] [address] PCP - ACO Reach 05/09/24 06/26/24 Joan Calvo, PATI [address] [place] [address] Clinical Advocate Family Medicine 05/02/24 05/23/24 documented as of this encounter
--- OUTSIDE RECORDS SUMMARY | 2024-11-26 01:11 | XMS_ITS | Clinical Summary ---
Author Organization [facility] Address [address] [place] [address] Care Team Providers Care Psychology Fellow Name Role Phone Unavailable Primary Care Provider Unavailabl e Social History Tobacco Use Types Packs/Day Years Used Date Smoking Tobacco: Never Assessed Sex and Gender Information Value Date Recorded Sex Assigned at Not on file Legal Sex Male 12:45 PM EST Gender Identity Not on file Sexual Orientation Not on file Plan of Treatment Health Maintenance Due Date Last Done Comments HEPATITIS C VIRUS SCREENING 1950 LIPID SCREENING 1988 COLORECTAL CANCER SCREENING DISCUSSION 1993 PNEUMOCOCCAL VACCINE SERIES (1 of 1 - PCV) 1998 ZOSTER (SHINGLES) VACCINE (1 of 2) 1998 ABDOMINAL AORTIC ANEURYSM HI GH RISK SCREEN 2013 TETANUS 12/11/2022 12/11/2012 COVID-19 VACCINE (1 - 2023-2 5 season) 2023 RSV VACCINE (1 - 1-dose 75+ series) 11/30/2023 INFLUENZA VACCINE (#1) 2024 TDAP (ADULT) Completed 12/11/2012 HEP B VACCINE Aged Out No longer elig ibjohn based on patient's age to complete this topic
--- OUTSIDE RECORDS SUMMARY | 2024-11-26 01:11 | XMS_ITS | Encounter Summary ---
Author Organization [facility] Address [address] [facility] [place] [address] Care Team Providers Care Practice Representative Name Role Phone Alda Osborne MD Primary Care Provider [phone] Alda Osborne MD Unavailable Joan Calvo RN Unavailable [phone] Alda Osborne MD Unavailable Encounter Details Date Type Department Care Team (Late st Contact Info) Description 04/23/2023 Abstract [facility] [place] [facility] [address] [facility] 110 [place] [address] Alda Osborne MD [address] [facility] 110 [place] [address] Social History Tobacco Use Types Packs/Day Years [...] any clubs o r organizations such as synagogue groups, unions, fraternal or athletic groups, or [...] and heating? Not hard at all 01/25/2023 [facility] Occup[facility] ional Health - [...] Visit [facility] [place] [address] [facility] 110 [place] [address] Alda Osborne MD [address] [facility] 110 [place] [address] documented as of this encounter Visit Diagnoses Not on filedocumented in this encounter Care Teams Practice Representative Relationship Specialty Start Date End Date Alda Osborne MD [address] [facility] 110 [place] [address] PCP - General Family Medicine 09/08/22 Alda Osborne MD [address] [facility] 110 [place] [address] PCP - ACO Reach 05/25/23 05/01/24 Alda Osborne MD [address] [facility] 110 [place] [address] PCP - ACO Reach 05/09/24 06/26/24 Joan Calvo, PATI [address] [place] [place] [address] Clinical Advocate Family Medicine 05/02/24 05/23/24 documented as of this encounter
--- OUTSIDE RECORDS SUMMARY | 2024-11-26 01:11 | XMS_ITS | Encounter Summary ---
Author Organization [facility] Address [address] [facility] [place] [address] Care Team Providers Care Cable Television Program Director Name Role Phone Alda Osborne MD Primary Care Provider [phone] Encounter Details Date Type Department Care Team (Late st Contact Info) Description 08/05/2024 Abstract [facility] [place] [facility] [address] [facility] [address] [place] [address] Alda Osborne MD [address] [facility] [address] [place] [address] Social History Tobacco Use Types Packs/Day Years [...] often do you attend chur ch or yarsani services? Never 01/25/2023 Do you belong to any clubs o r organizations such as sikh groups, unions, fraternal or athletic groups, or [...] Date Recorded Patient Health Questionnaire-2 Score 0 08/04/2024 [facility] Occupat ional Health - Occupational [...] Visit [facility] [place] [address] [facility] 110 [place] [address] Alda Osborne MD [address] [facility] 110 [place] [address] documented as of this encounter Visit Diagnoses Not on filedocumented in this encounter Care Teams Cable Television Program Director Relationship Specialty Start Date End Date Alda Osborne MD [address] [facility] 110 [place] [address] PCP - General Family Medicine 09/08/22 documented as of this encounter
--- OUTSIDE RECORDS SUMMARY | 2024-11-26 01:12 | XMS_ITS | Encounter Summary ---
Author Organization [facility] Address [address] [facility] [place] [address] Care Team Providers Care Transit Mechanic Name Role Phone Alda Osborne MD Primary Care Provider [phone] Alda Osborne MD Unavailable Joan Calvo RN Unavailable [phone] Alda Osborne MD Unavailable Encounter Details Date Type Department Care Team (Late st Contact Info) Description 02/07/2023 Abstract [facility] [place] [facility] [address] [facility] 110 [place] [address] Alda Osborne MD [address] [facility] 110 [place] [address] Social History Tobacco Use Types Packs/Day Years [...] often do you attend chur ch or muslim services? Never 01/25/2023 Do you belong to any clubs o r organizations such as islam groups, unions, fraternal or athletic groups, or [...] and heating? Not hard at all 01/25/2023 [facility] of Occupat ional Health - Occupational Stress [...] Visit [facility] [place] [address] [facility] 110 [place] [address] Alda Osborne MD [address] [facility] 110 [place] [address] documented as of this encounter Visit Diagnoses Not on filedocumented in this encounter Care Teams Transit Mechanic Relationship Specialty Start Date End Date Alda Osborne MD [address] [facility] 110 [place] [address] PCP - General Family Medicine 09/08/22 Alda Osborne MD [address] [facility] 110 [place] [address] PCP - ACO Reach 05/25/23 05/01/24 Alda Osborne MD [address] [facility] 110 [place] [address] PCP - ACO Reach 05/09/24 06/26/24 Joan Calvo, PATI [address] [place] [address] Clinical Advocate Family Medicine 05/02/24 05/23/24 documented as of this encounter
--- OUTSIDE RECORDS SUMMARY | 2024-11-26 01:12 | XMS_ITS | Encounter Summary ---
Author Organization [facility] Address [address] [facility] [place] [address] Care Team Providers Care Residential Care Officer Name Role Phone Alda Osborne MD Primary Care Provider [phone] Alda Osborne MD Unavailable Joan Calvo RN Unavailable [phone] Alda Osborne MD Unavailable Encounter Details Date Type Department Care Team (Late Contact Info) Description 11/19/2022 Abstract [facility] [place] [address] [facility] [address] [place] [address] Geraldine Paz LPN [address] [place] [address] Social History Tobacco Use Types Packs/Day Years Used Date Smoking Tobacco: Every Day Cigarettes Smokeless Tobacco: Never Sex and Gender Information Value Date Recorded Sex Assigned at Not on file Legal Sex Male 6:46 PM EDT Gender Identity Not on file Sexual Orientation Not on file documented as of this encounter Plan of Treatment Upcoming Encounters Date Type Department Care Team (Late Contact Info) Description 12/09/2024 11:00 AM EDT Office Visit [facility] [place] [address] [facility] [address] [place] [address] Alda Osborne MD [address] [facility] [address] [place] [address] documented as of this encounter Visit Diagnoses Not on filedocumented in this encounter Care Teams Residential Care Officer Relationship Specialty Start Date End Date Alda Osborne MD [address] [facility] [address] [place] [address] PCP - General Family Medicine 09/08/22 Alda Osborne MD [address] [facility] 110 [place] [address] PCP - ACO Reach 05/25/23 05/01/24 Alda Osborne MD [address] [facility] 110 [place] [address] PCP - ACO Reach 05/09/24 06/26/24 Joan Calvo, RN [address] [place] [address] Clinical Advocate Family Medicine 05/02/24 05/23/24 documented as of this encounter
--- OUTSIDE RECORDS SUMMARY | 2024-11-26 01:12 | XMS_ITS | Encounter Summary ---
Author Organization [facility] Address [address] [place] [facility] [place] [address] Care Team Providers Care Prop And Effects Designer Name Role Phone lAda Osborne MD Primary Care Provider [phone] Alda Osborne MD Unavailable Joan Calvo RN Unavailable [phone] Alda Osborne MD Unavailable Encounter Details Date Type Department Care Team (Late st Contact Info) Description 03/05/2023 Abstract [facility] [place] [facility] [address] [facility] 110 [place] [address] Alda Osborne MD [address] [facility] 110 [place] [address] Social History Tobacco Use Types Packs/Day Years [...] often do you attend chur ch or taoism services? Never 01/25/2023 Do you belong to [...] and heating? Not hard at all 01/25/2023 [facility] of Occupat ional Health - Occupational [...] Visit [facility] [place] [address] [facility] 110 [place] [address] Alda Osborne MD [address] [facility] 110 [place] [address] documented as of this encounter Visit Diagnoses Not on filedocumented in this encounter Care Teams Prop And Effects Designer Relationship Specialty Start Date End Date Alda Osborne MD [address] [facility] 110 [place] [address] PCP - General Family Medicine 09/08/22 Alda Obsorne MD [address] [facility] 110 [place] [address] PCP - ACO Reach 05/25/23 05/01/24 Alda Osborne MD [address] [facility] 110 [place] [address] PCP - ACO Reach 05/09/24 06/26/24 Joan Calvo, PATI [address] [place] [address] Clinical Advocate Family Medicine 05/02/24 05/23/24 documented as of this encounter
--- OUTSIDE RECORDS SUMMARY | 2024-11-26 01:12 | XMS_ITS | Encounter Summary ---
Author Organization [facility] Address [address] [facility] [place] [address] Care Team Providers Care Adjunct Instructor In Economics Name Role Phone Alda Osborne MD Primary Care Provider [phone] Alda Osborne MD Unavailable Joan Calvo RN Unavailable [phone] Alda Osborne MD Unavailable Encounter Details Date Type Department Care Team (Late Contact Info) Description 12/06/2022 Abstract [facility] [place] [address] [facility] 110 [place] [address] Alda Osborne MD [address] [facility] 110 [place] [address] Social History Tobacco Use Types Packs/Day Years Used Date Smoking Tobacco: Every Day Cigarettes Smokeless Tobacco: Never Tobacco Cessation:Ready to Q uit: Not Asked; Counseling Given: Not Answered Comments:6-10 cigarettes/day Alcohol Use Standard Drinks/Week Comments Not Currently 0 (1 standard drink = 0.6 oz pur e alcohol) caffeine: chocolate Sex and Gender Information Value Date Recorded Sex Assigned at Not on file Legal Sex Male 6:46 PM EDT Gender Identity Not on file Sexual Orientation Not on file documented as of this encounter Plan of Treatment Upcoming Encounters Date Type Department Care Team (Late Contact Info) Description 12/09/2024 11:00 AM EDT Office Visit [facility] [place] [address] [facility] 110 [place] [address] Alda Osborne MD [address] [facility] 110 [place] [address] documented as of this encounter Visit Diagnoses Not on filedocumented in this encounter Care Teams Adjunct Instructor In Economics Relationship Specialty Start Date End Date Alda Osborne MD [address] [facility] 110 [place] [address] PCP - General Family Medicine 09/08/22 Alda Osborne MD [address] [facility] 110 [place] [address] PCP - ACO Reach 05/25/23 05/01/24 Alda Osborne MD [address] [facility] 110 [place] [address] PCP - ACO Reach 05/09/24 06/26/24 Joan Calvo RN [address] [place], [place] [address] Clinical Advocate Family Medicine 05/02/24 05/23/24 documented as of this encounter
--- OUTSIDE RECORDS SUMMARY | 2024-11-26 01:12 | XMS_ITS | Encounter Summary ---
Author Organization [facility] Address [address] [facility] [place] [address] Care Team Providers Care Purchaser [employer] Name Role Phone Alda Osborne MD Primary Care Provider [phone] Alda Osborne MD Unavailable Joan Calvo RN Unavailable [phone] Alda Osborne MD Unavailable Encounter Details Date Type Department Care Team (Late st Contact Info) Description 10/31/2022 Orders Only [facility] [place] [address] [facility] 110 [place] [address] A, Unknown Practice [address] [place], [place] [address] Social History Tobacco Use Types Packs/Day Years [...] [place] [address] [facility] [address] [place] [address] Alda Osborne MD [address] [facility] 110 [place] [address] documented as of this encounter Procedures Procedure Name Priority Date/Time Associated Diagnosis Comments ELECTROCARDIOGRAM REPORT Routine 023 10:16 AM EDT documented in this encounter Results * Electrocardiogram Report (10/29/2022 10:16 AM EDT) us Unknown Practice A IN CLINIC/BEDSIDE ORDERABLES Final Result documented in this encounter Visit Diagnoses Not on filedocumented in this encounter Care Teams Purchaser [employer] Relationship Specialty Start Date End Date Alda Osborne MD [address] [facility] 110 [place] [address] PCP - General Family Medicine 09/08/22 Alda Osborne MD [address] [facility] 110 [place] [address] PCP - ACO Reach 05/25/23 05/01/24 Alda Osborne MD 112 [facility] 110 [place] [address] PCP - ACO Reach 05/09/24 06/26/24 Joan Calvo, PATI [address] [place] [address] Clinical Advocate Family Medicine 05/02/24 05/23/24 documented as of this encounter
--- OUTSIDE RECORDS SUMMARY | 2024-11-26 01:12 | XMS_ITS | Encounter Summary ---
Author Organization [facility] Address [address] [facility] [place] [address] Care Team Providers Care Director Pharmacology Name Role Phone Alda Osborne MD Primary Care Provider [phone] Alda Osborne MD Unavailable Joan Calvo RN Unavailable [phone] Alda Osborne MD Unavailable Encounter Details Date Type Department Care Team (Late st Contact Info) Description 10/30/2022 Orders Only [facility] [place] [address] [facility] [address] [place] [phone] Veronique Ellis DO [address] [place], [place] [address] Social History Tobacco Use Types Packs/Day Years [...] [place] [address] [facility] [address] [place] [phone] Alda Osborne MD [address] [facility] [address] [place] [id number] documented as of this encounter Procedures Procedure Name Priority Date/Time Associated Diagnosis Comments CT HEAD/BRAIN W & WO CONTRAST Routine 10/29/2022 10:58 AM EDT XR CHEST 1 VIEW Routine 10/29/2022 10:57 AM EDT documented in this encounter Results * CT HEAD/BRAIN W & WO CONTRAST (10/29/2022 10:58 AM EDT) Anatomical Region Laterality Modality Radiographic Ayla ging us Veronique Ellis DO IMG XR PROCEDURES Final Resu lt * XR chest 1 view (10/29/2022 10:57 AM EDT) Anatomical Region Laterality Modality Chest Radiographic [place]yla ging Veronique Ellis DO IMG XR PROCEDURES Final Resu lt documented in this encounter Visit Diagnoses Not on filedocumented in this encounter Care Teams Director Pharmacology Relationship Specialty Start Date End Date Alda Osborne MD [address] [address] PCP - General Family Medicine 09/08/22 Alda Osborne MD [address] [address] PCP - ACO Reach 05/25/23 05/01/24 Alda Osborne MD [address] [address] PCP - ACO Reach 05/09/24 06/26/24 Joan Calvo, PATI [address] [place] [address] Clinical Advocate Family Medicine 05/02/24 05/23/24 documented as of this encounter
--- NOTE | 2024-11-26 01:17 | ECG_ITS ---
[facility] [place] Test Date: 2024-11-26 Pat Name: FREIDA RIDDLE Department: Room: - Gender: Male Mortician Supplies Sales Representative: : [id number] Requested By: Antwan Pearson Order Number: [id number] Reading MD: AYAKA HUFF Measurements Intervals [place] Rate: 84 P: 84 AK: 200 QRS: 79 QRSD: 78 T: 90 QT: 360 QTc: 402 Interpretive Statements 1100 Sinus rhythm with premature supraventricular complex with aberrancy 8102 Low QRS voltage in chest leads 9140 abnormal rhythm ECG Compared to ECG 09/17/2024 12:22:08 Low QRS voltage now present Electronically Signed On 11-26-2024 13:58:41 EDT by AYAKA HUFF
[2024-11-26 01:22] LABS: Hematocrit 32.2 % (42.0-54.0); Hemoglobin 10.7 g/dL (14.0-18.0); Immature Granulocytes Abs Auto 0.01 10^3/uL (0.00-0.03); Immature Granulocytes Pct Auto 0.2 % (0.0-0.5); Lymphocytes Absolute Auto 1.5 10^3/uL (1.2-3.8); Mean Corpuscular HGB Conc 33.2 g/dL (29.9-35.2); Mean Corpuscular Hemoglobin 31.6 pg (25.9-34.0); Mean Corpuscular Volume 95.0 fL (80.0-94.0); Platelet Count 190 10^3/uL (150-450); Red Blood Count 3.39 10^6/uL (4.70-6.10); White Blood Count 6.4 10^3/uL (4.0-11.0)
--- NOTE | 2024-11-26 01:23 | ED.FALL1 ---
HPI HPI - Fall General Chief Complaint: Weakness Stated Complaint: FELL TONIGHT/ NOT ALL THERE NOW Time Seen by Provider: 11/26/24 01:15 Source: patient and family Mode of arrival: Wheelchair Limitations: no limitations History of Present Illness HPI Narrative: cc - fall Pt apparently got up in the middle of the night and fell. He does not complain of any pain at this time but the family was concerned because he was not acting like himself . On further questioning, I learned that he had gone to see his primary care provider earlier in the day for evaluation of a hernia, for which they are considering surgical evaluation. He also apparently has benign prostatic hypertrophy and is up frequently throughout the night to urinate. According to the family, the patient was started on a new medication for his BPH and in the course of the interview and evaluation today at the doctor's office, the patient apparently told his primary care physician that he was having trouble sleeping. When I delved into this further, it appears that the patient gets up frequently in order to urinate throughout the night. His primary care physician prescribed a sleep pill - 10mg Ambien - for the patient to take and he took that this evening at bedtime. He took the ambien around 10pm and then subsequently he got up a couple hours later to use the bathroom, was unsteady on his feet, fell and is now a little bit slow to answer questions and appears to be suffering from the acute effects of the ambien. Otherwise he has no complaints. No loss of consciousness. No evidence of long bone fracture. No evidence of head or facial injury. He is not on anticoagulants. He is an insulin-dependent diabetic with blood sugars greater than 90 on evaluation in the ED. Related Data Home Medications ?Medication ?Instructions ?Recorded ?Confirmed albuterol sulfate 2.5 mg/3 mL 2.5 mg continuous nebulization Q4H 10/29/22 11/26/24 (0.083 %) solution for nebulization PRN bronchospasm bupropion HCl 150 mg tablet,12 hr 150 mg PO Q12H 10/29/22 11/26/24 sustained-release carvedilol 6.25 mg tablet 6.25 mg PO Q12H 10/29/22 11/26/24 lisinopril 20 mg tablet 20 mg PO DAILY 10/29/22 11/26/24 metformin 1,000 mg tablet 1,000 mg PO BID 10/29/22 11/26/24 pravastatin 40 mg tablet 40 mg PO DAILY 10/29/22 11/26/24 insulin glargine 100 unit/mL (3 8 unit subcut QPM 09/17/24 11/26/24 mL) subcutaneous pen (Lantus Solostar U-100 Insulin) ciprofloxacin HCl 500 mg tablet 500 mg PO Q24H 11/26/24 11/26/24 zolpidem 10 mg tablet 10 mg PO DAILY 11/26/24 11/26/24 Previous Rx's ?Medication ?Instructions ?Recorded fluticasone propionate 50 2 spray intranasal QD 30 days #1 g 04/23/23 mcg/actuation nasal spray,suspension pen needle, diabetic 31 gauge x #100 ea 04/23/2303/31 ondansetron 4 mg disintegrating 4 mg PO Q6H PRN nausea and 09/17/24 tablet vomiting #20 tabs Allergies Allergy/AdvReac Type Severity Reaction Status Date / Time No Known Drug Allergies Allergy Verified 11/26/24 01:08 Opioid HPI Opioid Management Most Recent Pain and Opioid Data: Last Pain Assessment Today, 05:00 Last ORT Total Score 0 Today, 04:39 Last ORT Risk Category Low Risk Today, 04:39 [facility] Medical History Hyperglycemia ?R73.9 - Hyperglycemia, unspecified (ICD-10) Acute renal failure ?N17.9 - Acute kidney failure, unspecified (ICD-10) Hyponatremia ?E87.1 - Hypo-osmolality and hyponatremia (ICD-10) Hyperkalemia ?E87.5 - Hyperkalemia (ICD-10) Cirrhosis ?K74.60 - Unspecified cirrhosis of liver (ICD-10) Hyperlipidemia associated with type 2 diabetes mellitus ?E11.69 - Type 2 diabetes mellitus with other specified complication (ICD-10) ?E78.5 - Hyperlipidemia, unspecified (ICD-10) Hypertension ?I10 - Essential (primary) hypertension (ICD-10) COPD (chronic obstructive pulmonary disease) ?J44.9 - Chronic obstructive pulmonary disease, unspecified (ICD-10) Otitis media ?H66.90 - Otitis media, unspecified, unspecified ear (ICD-10) Diabetes ?E11.9 - Type 2 diabetes mellitus without complications (ICD-10) Social History Within the past year, how often did you have a drink containing alcohol: never Score interpretation: A score less than 4 is consistent with normal alcohol consumption. Smoking status: Current every day smoker Non-prescribed substance use: denies use Highest level of school completed/degree received: high school graduate Little interest or pleasure in doing things: not at all Feeling down, depressed, or hopeless: not at all Exam Narrative Exam Narrative: Nurses note and vital signs reviewed and patient is not hypoxic. afebrile General: The patient appears well and in no apparent distress. Patient is resting comfortably on cart. GCS = 15. Skin: Warm, dry, no pallor noted. He has a few small areas of skin tear. Head: Normocephalic, atraumatic -no evidence of injury to the scalp or face Neck: Supple, trachea mid-line, no tenderness, no lymphadenopathy. Full ROM and no cervical spinal tenderness. The patient has no step-offs or crepitus noted Eyes: PERRLA, EOMI ENT: TM's clear, no hemotympanum detected, no blood in posterior oropharynx Cardiovascular: Regular Rate and Rhythm Respiratory: Patient is in no distress, no accessory muscle use, lungs are clear to auscultation, no wheezing, rales or rhonchi Chest Wall: no tenderness, no flail chest, contusion, abrasion, or signs of trauma. Back: No thoracic vertebral or lumbar vertebral tenderness to palpation. Negative straight leg raise bilaterally. No ecchymosis, abrasions, lacerations noted. Musculoskeletal: no sign of long bone fracture, no tenderness, no swelling. Pulses at femoral, DP, PT, and popiteal were 2+ bilaterally. Moves all four extremities in all modalities with 5/5 strength. GI: Normal bowel sounds, no tenderness to palpation, no masses appreciated. No rebound, guarding, or rigidity noted. Neurological: A&O x4, normal equal eyeglass lens grinder strength, normal finger to nose, normal speech, normal coordination, normal motor, normal sensory. No pronator drift, no truncal ataxia, he is able to hold each leg up against gravity without difficulty. Psychiatric: Cooperative Constitutional Vital Signs, click to edit/add: Last Vital Signs Temp 98.4 F 11/26/24 04:39 Pulse 98 H 11/26/24 05:00 Resp 16 11/26/24 04:39 BP 140/75 11/26/24 04:39 Pulse Ox 96 11/26/24 04:39 O2 Del Method Room Air 11/26/24 04:39 Course Vital Signs Vital signs: Vital Signs Pulse Oximetry 99 11/26/24 01:03 Temperature 98.4 F 11/26/24 04:39 Pulse Rate 98 H 11/26/24 05:00 Respiratory Rate 16 11/26/24 04:39 Blood Pressure 140/75 11/26/24 04:39 Pulse Oximetry 96 11/26/24 04:39 Oxygen Delivery Method Room Air 11/26/24 04:39 MDM - Fall MDM Narrative Medical decision making narrative: Patient was placed on cardiac cath lab manager and EKG obtained. Blood drawn and sent for evaluation. Urine was ordered to be obtained and sent for testing with the patient was unable to give us a sample initially. White blood cell count was normal, hemoglobin and hematocrit decreased to 10.7, 32.2, respectively. Normal platelet count. Sodium and chloride were normal but potassium was elevated at 5.6. BUN and creatinine were elevated at 52 and 1.85 -this is above the patient's baseline. Calcium and LFTs were unremarkable. His glucose was 149 with blood draw glucose 141. He was given NS IVF. On recheck at 0200, I met with the daughter and discussed the patient's test results. He is now sleeping and difficult to awaken due to taking the sleeping pill tonight. He is not going to be able to get up and safely go home at this point. Call placed to the geriatric personal care aide hospitalist. Dr Phan and I discussed the patient's case, his use of sleeping pill, the fall and now the patient's drowsiness/somnolence. Dr Phan agreed to admit the patient on observation basis to [facility] but wants a head ct with reading and result before bringing him upstairs. Head CT read by radiologist as negative for acutely worrisome pathology and pt was sent to [facility] for obs admission. Lab Data Attestation: I reviewed the patient's lab results. Labs: Lab Results 11/26/24 11/26/24 Range/Units 01:10 01:14 WBC 6.4 (4.0-11.0) 10^3/uL RBC 3.39 L (4.70-6.10) 10^6/uL Hgb 10.7 L (14.0-18.0) g/dL Hct 32.2 L (42.0-54.0) % MCV 95.0 H (80.0-94.0) fL MCH 31.6 (25.9-34.0) pg MCHC 33.2 (29.9-35.2) g/dL RDW 11.9 (11.0-15.0) % Plt Count 190 (150-450) 10^3/uL MPV 9.5 (9.5-13.5) fL Neut % (Auto) 62.9 (43.0-75.0) % Lymph % (Auto) 23.6 (20.5-60.0) % [place] % (Auto) 7.8 (1.7-12.0) % Eos % (Auto) 5.0 (0.9-7.0) % Baso % (Auto) 0.5 (0.2-2.0) % Neut # (Auto) 4.0 (1.4-6.5) 10^3/uL Lymph # (Auto) 1.5 (1.2-3.8) 10^3/uL [place] # (Auto) 0.5 (0.3-0.8) 10^3/uL Eos # (Auto) 0.3 (0.0-0.7) 10^3/uL Baso # (Auto) 0.0 (0.0-0.1) 10^3/uL Abs Immat Gran (auto) 0.01 (0.00-0.03) 10^3/uL Imm/Tot Granulo (auto) 0.2 (0.0-0.5) % Sodium 138 (136-145) mmol/L Potassium 5.6 H (3.5-5.1) mmol/L Chloride 105 (98-107) mmol/L Carbon Dioxide 25.8 (21.0-32.0) mmol/L Anion Gap 12.8 BUN 52.0 H (7.0-18.0) mg/dL Creatinine 1.85 H (0.70-1.30) mg/dL Est GFR ( Amer) 43 L (>=60 mL/min/1.73m^2) Est GFR (Non-Af Amer) 36 L (>=60 mL/min/1.73m^2) BUN/Creatinine Ratio 28.1 Glucose 141 H (74-106) mg/dL Calcium 8.8 (8.5-10.1) mg/dL Magnesium 1.9 (1.8-2.4) mg/dL Total Bilirubin 0.5 (0.2-1.0) mg/dL AST 19 (15-37) U/L ALT 29 (16-63) U/L Alkaline Phosphatase 136 H (46-116) U/L Total Protein 7.0 (6.4-8.2) g/dL Albumin 3.3 L (3.4-5.0) g/dL Globulin 3.7 g/dL Albumin/Globulin Ratio 0.9 POC Glucose 149 H (74-106) mg/dL Imaging Data CT scan - head: Attestation: I have reviewed the pertinent imaging results. Radiologist's impression: NAD ECG Data Attestation: I personally reviewed and interpreted this ECG as follows: Interpretation: EKG interpretation: Emergency Department physician interpretation. Normal sinus rhythm at 84bpm. Normal axis, normal intervals and no ST segment elevation or depression. PVC noted Discharge Plan Discharge Chief Complaint: Weakness Clinical Impression: Medication adverse effect, Fall Patient Disposition: Admitted as Observation Time of Disposition Decision: 02:12 Discharge Date/Time: 11/26/24 04:56
[2024-11-26 01:38] LABS: Alanine Aminotransferase 29 U/L (16-63); Albumin Globulin Ratio 0.9; Albumin Level 3.3 g/dL (3.4-5.0); Alkaline Phosphatase 136 U/L (46-116); Anion Gap 12.8; Aspartate Amino Transferase 19 U/L (15-37); Blood Urea Nitrogen 52.0 mg/dL (7.0-18.0); Calcium 8.8 mg/dL (8.5-10.1); Carbon Dioxide 25.8 mmol/L (21.0-32.0); Chloride 105 mmol/L (98-107); Estimated GFR (African America 43 (>=60 mL/min/1.73m^2); Estimated GFR (Non-African Ame 36 (>=60 mL/min/1.73m^2); Globulin 3.7 g/dL; Glucose 141 mg/dL (74-106); Magnesium 1.9 mg/dL (1.8-2.4); Potassium 5.6 mmol/L (3.5-5.1); Sodium 138 mmol/L (136-145); Total Protein 7.0 g/dL (6.4-8.2)
[2024-11-26] MEDS: 0.9 % SODIUM CHLORIDE 1,000 ML 999 ML IV (01:38)
--- NOTE | 2024-11-26 02:49 | PC.NURSE ---
pt resting comfortable, warm blankets given, call light in reach, pt daughter sent home
--- OUTSIDE RECORDS SUMMARY | 2024-11-26 04:40 | XMS_ITS | CCD ---
Author Organization [facility] Care Team Providers Care Data Transcriber Name Role Phone ROSA MARIA DIAZ Unavailable Unavailable ROSA MARIA DIAZ Unavailable Unavailable ALDA SHEA Unavailable Unavailable SHABIBR, DR SANCHEZ Primary Care Unavailable YEIMY MARTINEZ [...] Unavailable Alda Shea MD Primary Care Provider [phone] Alda Shea MD Unavailable ALDA SHEA Attending [...] tablet 08/04/2024 08/18/2024 Active Continuous Blood Gluc Elastic Yarn Twister Helper (FreeStyle [place] 2 [place]) device (2 sources) Start: 05-01-2023 End: 04-30-2024 Continuous Blood Gluc Elastic Yarn Twister Helper (FreeStyle Sol[place] 2 [place]) device Indications: Type 2 diabetes mellitus without [...] complication, without long-term current use of insulin ([facility]) Inject 8 Units under the skin [...] 2 diabetes mellitus without complication, unspecified whether assisted insulin use (HCC) , Type 2 diabetes [...] 2 diabetes mellitus without complication, unspecified whether assisted insulin use (HCC) Take 1 tablet (1,000 [...] disease (1 source) Atherosclerotic heart disease of [place] coronary artery without angina pectoris; Translations: [ASHD [place] W/O ANGINA PECTORIS] Onset: 03-28-2022 Chronic [...] Translations: [Immunodeficiency due to conditions classified elsewhere ([facility])] 02-05-2024 Chronic Immunizations and screening for [...] malnutrition] 02-05-2024 Chronic Other aftercare (1 source) longterm (current) use of aspirin; Translations: [INTERMEDIATE CURRENT USE OF ASPIRIN] Onset: 03-28-2022 Episodic Other aftercare (1 source) Other assisted (current) drug therapy; Translations: [OTH INTERMEDIATE CURRENT DRUG THERAPY] Onset: 03-28-2022 Episodic Other aftercare (1 source) longterm (current) use of insulin; Translations: [INTERMEDIATE CURRENT USE OF INSULIN] Onset: 03-28-2022 Episodic Other aftercare (1 source) longterm (current) use of oral hypoglycemic drugs; Translations: [REGISTERED MEDICAL TRANSCRIPTIONIST USE ORAL HYPOGLYCEMIC DX] Onset: 03-28-2022 Episodic [...] August 26, 2024 FREIDA DOUGHERTY [address] [address] : 1950 Dear Freida, We have been trying to reach you with no success. It is important that you return our call regarding your recent referral upon receiving this letter. Also, at the time of your call, please provide us with your current information. Thank you for your prompt attention to this matter. Sincerely, [facility] [place] [address] [address] [place] [address] Phone [phone], option #3 Fax ~[phone] Normal [facility] ALBUMIN, RANDOM URINE W/CREA TININEon 07-28-2024 ALBUMIN, URINE 1.0 mg/dL Normal See Note: [facility] Comment on above: Result Comment: Refe rence Range: Reference Range Not established Performed By: #### 4 96, 7600, 31911, 6517, 6399 #### [facility] [address], [address] [place] [address] Sap Sd Analyst: Vito Fragoso MD ALBUMIN/CREATININE RATIO, RANDOM URINE [...] category. Performed By: #### 4 96, 7600, 44558, 6517, 6399 #### [facility] [address], [address] [place] [address] Sap Sd Analyst: Vito Fragoso MD Creatinine (U) [Mass/Vol] 61 mg/dL Normal 20-320 [facility] Comment on above: Performed By: #### 4 96, 7600, 67578, 6517, 6399 #### [facility] [address], [address] [place] [address] Sap Sd Analyst: Vito Fragoso MD CBC (INCLUDES DIFF/PLT)on Basophils (Bld) [#/Vol] 0.023 10*3/uL Normal 0-200 [facility] Comment on above: Performed By: #### 4 96, 7600, 44823, 6517, 6399 #### [facility] of [address], [address] [place] [address] Sap Sd Analyst: Vito Fragoso MD Basophils/100 WBC (Bld) 0.4 % Normal [facility] Comment on above: Performed By: #### 4 96, 7600, 63315, 65, 6399 #### [facility] [place] [address] Sap Sd Analyst: Vito Fragoso MD Eosinophils (Bld) [#/Vol] 0.194 10*3/uL Normal 15-500 [facility] Comment on above: Performed By: #### 4 96, 7600, 14864, 6516, 6399 #### [facility] of [address], [address] [place] [address] Sap Sd Analyst: Vito Fragoso MD Eosinophils/100 WBC (Bld) 3.4 % Normal [facility] Comment on above: Performed By: #### 4 96, 7600, 63832, 65, 6399 #### [facility] [place] [address] Sap Sd Analyst: Vito Fragoso MD Erythrocyte distribution width (RBC) [Ratio] 12.8 % Normal 11.0-15.0 [facility] Comment on above: Performed By: #### 4 96, 7600, 63050, 6517, 6399 #### [facility] [place] [address] Sap Sd Analyst: Vito Fragoso MD Hematocrit (Bld) [Volume fraction] 34.8 % Low 38.5-50.0 [facility] Comment on above: Performed By: #### 4 96, 7600, 93057, 6517, 6399 #### [facility] [place] [address] Sap Sd Analyst: Vito Fragoso MD Hemoglobin (Bld) [Mass/Vol] 11.2 g/dL Low 13.2-17.1 [facility] Comment on above: Performed By: #### 4 96, 7600, 09744, 65, 6399 #### [facility] [place] [address] Sap Sd Analyst: Vito Fragoso MD Lymphocytes (Bld) [#/Vol] 1.34 10*3/uL Normal 850-3900 [facility] Comment on above: Performed By: #### 4 96, 7600, 08729, 6516, 6399 #### [facility] [place] [address] Sap Sd Analyst: Vito Fragoso MD Lymphocytes/100 WBC (Bld) 23.5 % Normal [facility] Comment on above: Performed By: #### 4 96, 7600, , 6516, 6399 #### [facility] [place] [address] Sap Sd Analyst: Vito Fragoso MD MCH (RBC) [Entitic mass] 32.0 pg Normal 27.0-33.0 [facility] Comment on above: Performed By: #### 4 96, 7600, 07174, 65, 6399 #### [facility] [place] [address] Sap Sd Analyst: Vito Fragoso MD MCHC (RBC) [Mass/Vol] 32.2 [...] condition. Performed By: #### 4 96, 7600, 34989, 65, 6399 #### [facility] [place] [address] Sap Sd Analyst: Vito Fragoso MD MCV (RBC) [Entitic vol] 99.4 fL Normal 80.0-100.0 [facility] Comment on above: Performed By: #### 4 96, 7600, 66389, 6517, 6399 #### [facility] [place] [address] Sap Sd Analyst: Vito Fragoso MD Monocytes (Bld) [#/Vol] 0.422 10*3/uL Normal 200-950 [facility] Comment on above: Performed By: #### 4 96, 7600, 56199, 6516, 6399 #### [facility] [place] [address] Sap Sd Analyst: Vito Fragoso MD Monocytes/100 WBC (Bld) 7.4 % Normal [facility] Comment on above: Performed By: #### 4 96, 7600, 34449, 17, 6399 #### [facility] [place] [address] Sap Sd Analyst: Vito Fragoso MD Neutrophils (Bld) [#/Vol] 3.722 10*3/uL Normal 7751-3420 [facility] Comment on above: Performed By: #### 4 96, 7600, 75811, 6517, 6399 #### [facility] [place] [address] Sap Sd Analyst: Vito Fragoso MD Neutrophils/100 WBC (Bld) 65.3 % Normal [facility] Comment on above: Performed By: #### 4 96, 7600, 44728, 6517, 6399 #### [facility] [place] [address] Sap Sd Analyst: Vito Fragoso MD Platelet mean volume (Bld) [Entitic vol] 10.5 fL Normal 7.5-12.5 [facility] Comment on above: Performed By: #### 4 96, 7600, 18464, 6517, 6399 #### [facility] [place] [address] Sap Sd Analyst: Vito Fragoso MD Platelets (Bld) [#/Vol] 201 10*3/uL Normal 140-400 [facility] Comment on above: Performed By: #### 4 96, 7600, 75077, 6517, 6399 #### [facility] of [address], [address] [place] [address] Sap Sd Analyst: Vito Fragoso MD RBC (Bld) [#/Vol] 3.50 10*6/uL Low 4.20-5.80 [facility] Comment on above: Performed By: #### 4 96, 7600, 37829, 6517, 6399 #### [facility] [place] [address] Sap Sd Analyst: Vito Fragoso MD WBC (Bld) [#/Vol] 5.7 10*3/uL Normal 3.8-10.8 [facility] Comment on above: Performed By: #### 4 96, 7600, 38810, 6517, 6399 #### [facility] [place] [address] Sap Sd Analyst: Vito Fragoso MD [facility] METABOL[facility] 07-28-2024 Albumin [Mass/Vol] 4.0 g/dL Normal 3.6-5.1 [facility] Comment on above: Performed By: #### 4 96, 7600, 05142, 6517, 6399 #### [facility] [place] [address] Sap Sd Analyst: Vito Fragoso MD Albumin/Globulin [Mass ratio] 1.8 {ratio} Normal 1.0-2.5 [facility] Comment on above: Performed By: #### 4 96, 7600, 73622, 6517, 6399 #### [facility] [place] [address] Sap Sd Analyst: Vito Fragoso MD ALP [Catalytic activity/Vol] 69 U/L Normal 35-144 [facility] Comment on above: Performed By: #### 4 96, 7600, 54645, 6517, 6399 #### [facility] of [address], [address] [place] [address] Sap Sd Analyst: Vito Fragoso MD ALT [Catalytic activity/Vol] 9 U/L Normal 9-46 [facility] Comment on above: Performed By: #### 4 96, 7600, 72913, 6517, 6399 #### [facility] of [address], [address] [place] [address] Sap Sd Analyst: Vito Fragoso MD AST [Catalytic activity/Vol] 14 U/L Normal 10-35 [facility] Comment on above: Performed By: #### 4 96, 7600, 69052, 6517, 6399 #### [facility] of [address], [address] [place] [address] Sap Sd Analyst: Vito Fragoso MD Bilirubin [Mass/Vol] 0.5 mg/dL Normal 0.2-1.2 [facility] Comment on above: Performed By: #### 4 96, 7600, 14022, 6517, 6399 #### [facility] of [address], [address] [place] [address] Sap Sd Analyst: Vito Fragoso MD Calcium [Mass/Vol] 9.1 mg/dL Normal 8.6-10.3 [facility] Comment on above: Performed By: #### 4 96, 7600, 46284, 6517, 6399 #### [facility] of [address], [address] [place] [address] Sap Sd Analyst: Vito Fragsoo MD Chloride [Moles/Vol] 108 mmol/L Normal 98-110 [facility] Comment on above: Performed By: #### 4 96, 7600, 50295, 6517, 6399 #### [facility] [place] [address] Sap Sd Analyst: Vito Fragoso MD CO2 [Moles/Vol] 24 mmol/L Normal 20-32 [facility] Comment on above: Performed By: #### 4 96, 7600, 97387, 6517, 6399 #### [facility] of [address], [address] [place] [address] Sap Sd Analyst: Vito Fragoso MD Creatinine [Mass/Vol] 1.33 mg/dL High 0.70-1.28 [facility] Comment on above: Performed By: #### 4 96, 7600, 67434, 6517, 6399 #### [facility] [place] [address] Sap Sd Analyst: Vito Fragoso MD GFR/1.73 sq M.predicted among non-blacks MDRD (S/P/Bld) [Vol rate/Area] 56 mL/min/{1.73_m2} Low > OR = 60 [facility] Comment on above: Performed By: #### 4 96, 7600, 46803, 6517, 6399 #### [facility] [place] [address] Sap S[employer] Analyst: Vito Fragoso MD Globulin (S) [Mass/Vol] 2.2 g/dL Normal 1.9-3.7 [facility] Comment on above: Performed By: #### 4 96, 7600, 63924, 6517, 6399 #### [facility] [place] [address] Sap S[employer] Analyst: Vito Fragoso MD Glucose [Mass/Vol] 73 mg/dL Normal 65-99 [facility] Comment on above: Result Comment: Fasting reference interval Performed By: #### 4 96, 7600, 91350, 6517, 6399 #### [facility] [place] [address] Sap Sd Analyst: Vito Fragoso MD Potassium [Moles/Vol] 5.3 mmol/L Normal 3.5-5.3 [facility] Comment on above: Performed By: #### 4 96, 7600, 41857, 6517, 6399 #### [facility] [place] [address] Sap S[employer] Analyst: Vito Fragoso MD Protein [Mass/Vol] 6.2 g/dL Normal 6.1-8.1 [facility] Comment on above: Performed By: #### 4 96, 7600, 47189, 6517, 6399 #### [facility] [place] [address] Sap S[employer] Analyst: Vito Fragoso MD Sodium [Moles/Vol] 140 mmol/L Normal 135-146 [facility] Comment on above: Performed By: #### 4 96, 7600, 28261, 6517, 6399 #### [facility] [place] [address] Sap S[employer] Analyst: Vito Fragoso MD Urea nitrogen [Mass/Vol] 36 mg/dL High 7-25 [facility] Comment on above: Performed By: #### 4 96, 7600, 73345, 6517, 6399 #### [facility] [place] [address] Sap S[employer] Analyst: Vito Fragoso MD Urea nitrogen/Creatinine [Mass ratio] 27 mg/mg High 6-22 [facility] Comment on above: Performed By: #### 4 96, 7600, 38249, 6517, 6399 #### [facility] [place] [address] Sap Sd Analyst: Vito Fragoso MD HEMOGLOBIN A1con 07-28-2024 HbA1c [...] children. Performed By: #### 4 96, 7600, 08137, 6517, 6399 #### [facility] [address], [address] [place] [address] Sap Sd Analyst: Vito Fragoso MD LIPID PANEL, STANDARDon 05-0 Cholesterol [Mass/Vol] 83 mg/dL Normal <200 [facility] Comment on above: Order Comment: FASTI NG:YES FASTING: YES Performed By: #### 4 96, 7600, 25522, 6517, 6399 #### [facility] [address], [address] [place] [address] Sap Sd Analyst: Vito Fragoso MD Cholesterol in HDL [Mass/Vol] 29 mg/dL Low > OR = 40 [facility] Comment on above: Order Comment: FASTI NG:YES FASTING: YES Performed By: #### 4 96, 7600, 89415, 6517, 6399 #### [facility] [address], [address] [place] [address] Sap S[employer] Analyst: Vito Fragoso MD Cholesterol in LDL [Mass/Vol] [...] LDL-C. Len CAMPA et al. ARMANDO. 2013;310(19): 9985-4790 ([email or web address]/faq/[email or web address]) Performed By: #### 4 96, 7600, 05741, 6517, 6399 #### [facility] [address], [address] [place] [address] Sap Sd Analyst: Vito Fragoso MD Cholesterol.total/C holesterol in HDL [Mass ratio] 2.9 {ratio} Normal <5.0 [facility] Comment on above: Order Comment: FASTI NG:YES FASTING: YES Performed By: #### 4 96, 7600, 89896, 6517, 6399 #### [facility] [address], [address] [place] [address] Sap Sd Analyst: Vito Fragoso MD NON HDL CHOLESTEROL 54 mg/dL (calc) Normal <130 [facility] Comment on above: Order Comment: FASTI NG:YES FASTING: YES Result Comment: For patients with diabetes plus 1 major ASCVD risk factor, treating to a non-HDL-C goal of <100 mg/dL (LDL-C of <70 mg/dL) is considered a therapeutic option. Performed By: #### 4 96, 7600, 29737, 6517, 6399 #### [facility] [address], [address] [place] [address] Sap Sd Analyst: Vito Fragoso MD Triglyceride [Mass/Vol] 125 mg/dL Normal <150 [facility] Comment on above: Order Comment: FASTI NG:YES FASTING: YES Performed By: #### 4 96, 7600, 86347, 6517, 6399 #### [facility] [address], [address] [place] [address] Sap Sd Analyst: Vito Fragoso MD PSA, TOTALon 07-28-2024 PSA, TOTAL 21.90 ng/mL High < OR = 4.00 [facility] Comment on above: Result Comment: The total PSA value from this assay system is standardized against the WHO standard. The test result will be approximately 20% lower when compared to the equimolar-standardized total PSA ([employer]). Comparison of serial PSA results should be interpreted with this fact in mind. This test was performed using the Siemens chemiluminescent method. Values obtained from different assay methods cannot be used interchangeably. PSA levels, regardless of value, should not be interpreted as absolute evidence of the presence or absence of disease. Performed By: #### 4 96, 7600, 39277, 6517, 6399 #### [facility] [address], [address] [place] [address] Sap Sd Analyst: Vito Fragoso MD Laboratory - Hematology and Cell countson 02-05-2024 HbA1c (Bld) [Mass fraction] 6.6 % [facility] [employer] No Panel Informationon 02-04 Interpretation and review of laboratory results Abnormal [employer] [facility] BNPon 03-24-2022 Natriuretic peptide B (Bld) [Mass/Vol] 752.0 pg/mL Normal <=900.0 [facility] Comment on above: Performed By: #### C MREP #### [facility] [address] [place] [address] Dr. Jh Boudreaux CBC AUTO DIFFon 03-24-2022 BASO # 0.1 103/ul Normal 0.0-0.1 [facility] Comment on above: Performed By: #### C BC #### [facility] [address] [place] [address] Dr. Jh Boudreaux Basophils/100 WBC (Bld) 0.6 % Normal 0.2-2.0 [facility] Comment on above: Performed By: #### C BC #### [facility] [address] [place] [address] Dr. Jh Boudreaux EO # 0.4 103/ul Normal 0.0-0.7 [facility] Comment on above: Performed By: #### C BC #### [facility] [address] [place] [address] Dr. Jh Boudreaux Eosinophils/100 WBC (Bld) 4.5 % Normal 0.9-7.0 [facility] Comment on above: Performed By: #### C BC #### [facility] [address] [place] [address] Dr. Jh Boudreaux Erythrocyte distribution width (RBC) [Ratio] 12.5 % Normal 11.0-15.0 [facility] Comment on above: Performed By: #### C BC #### [facility] [address] [place] [address] Dr. Jh Boudreaux Hematocrit (Bld) [Volume fraction] 38.9 % Critically low 42.0-54.0 [facility] Comment on above: Performed By: #### C BC #### [facility] [address] [place] [address] Dr. Jh Boudreaux Hemoglobin (Bld) [Mass/Vol] 13.3 g/dL Critically low 14.0-18.0 [facility] Comment on above: Performed By: #### C BC #### [facility] [address] [place] [address] Dr. Jh Boudreaux IG # 0.03 10e3/ul Normal 0.00-0.03 [facility] Comment on above: Performed By: #### C BC #### [facility] [address] [place] [address] Dr. Jh Boudreaux IG % 0.4 % Normal 0.0-0.5 [facility] Comment on above: Performed By: #### C BC #### [facility] [address] [place] [address] Dr. Jh Boudreaux LYMPH # 1.4 103/ul Normal 1.2-3.8 [facility] Comment on above: Performed By: #### C BC #### [facility] [address] [place] [address] Dr. Jh Boudreaux Lymphocytes/100 WBC (Bld) 16.9 % Critically low 20.5-60.0 [facility] Comment on above: Performed By: #### C BC #### [facility] [address] [place] [address] Dr. Jh Boudreaux MANUAL DIFF REQ NO Normal [facility] Comment on above: Performed By: #### C BC #### [facility] [address] [place] [address] Dr. Jh Boudreaux MCH (RBC) [Entitic mass] 29.6 pg Normal 25.9-34.0 [facility] Comment on above: Performed By: #### C BC #### [facility] [address] [place] [address] Dr. Jh Boudreaux MCHC (RBC) [Mass/Vol] 34.2 g/dL Normal 29.9-35.2 [facility] Comment on above: Performed By: #### C BC #### [facility] [address] [place] [address] Dr. Jh Boudreaux MCV (RBC) [Entitic vol] 86.6 fL Normal 80.0-94.0 [facility] Comment on above: Performed By: #### C BC #### [facility] [address] [place] [address] Dr. Jh Boudreaux MONO # 0.8 103/ul Normal 0.3-0.8 [facility] Comment on above: Performed By: #### C BC #### [facility] [address] [place] [address] [address] Jh Boudreaux Monocytes/100 WBC (Bld) 10.2 % Normal 1.7-12.0 [facility] Comment on above: Performed By: #### C BC #### [facility] [address] [place] [address] [address] Jh Boudreaux NEUT # 5.6 103/ul Normal 1.4-6.5 [facility] Comment on above: Performed By: #### C BC #### [facility] [address] [place] [address] Dr. Jh Boudreaux Neutrophils/100 WBC (Bld) 67.4 % Normal 43.0-75.0 [facility] Comment on above: Performed By: #### C BC #### [facility] [address] [place] [address] Dr. Jh Boudreaux Platelet mean volume (Bld) [Entitic vol] 9.9 fL Normal 9.5-13.5 [facility] Comment on above: Performed By: #### C BC #### [facility] [address] [place] [address] Dr. Jh Boudreaux PLT 182 103/ul Normal 150-450 [facility] Comment on above: Performed By: #### C BC #### [facility] [address] [place] [address] Dr. Jh Boudreaux RBC 4.49 106/ul Critically low 4.70-6.10 [facility] Comment on above: Performed By: #### C BC #### [facility] [address] [place] [address] Dr. Jh Boudreaux WBC 8.3 103/ul Normal 4.0-11.0 [facility] Comment on above: Performed By: #### C BC #### [facility] [address] [place] [address] Dr. Jh Boudreaux Cov[facility]on 02-25 SARS-CoV-2 (COVID-19) RNA PETER+probe Ql (Unsp spec) Not detected Normal NOT DETECTED [facility] Comment on above: Result Comment: When [...] for this test is supported by the [place] of Health and Human Service's declaration that [...] used). Performed By: #### C VDTB #### [facility] [address] [place] [address] Dr. Jh Boudreaux INFLUENZA A AND B AGon 03-24 [facility] SEE BELOW Normal [facility] Comment on above: Result Comment: Nega tive for Flu A protein angiten. Infection due to Flu A cannot be ruled out. Flu A angiten in the sample may be below the detection limit of the test. Performed By: #### I NFLUAB #### [facility] [address] [place] [address] Dr. [facility] Normal [facility] Comment on above: Result Comment: Nega tive for Flu B protein antigen. Infection due to Flu B cannot be ruled out. Flu B antigen in the sample may be below the detection limit of the test. Performed By: #### I NFLUAB #### [facility] [address] [place] [address] Dr. Jh Boudreaux INFLUENZA A AG Negative Normal NEGATIVE SEE COMMENT [facility] Comment on above: Performed By: #### I NFLUAB #### [facility] [address] [place] [address] Dr. Jh Boudreaux INFLUENZA B AG Negative Normal NEGATIVE SEE COMMENT [facility] Comment on above: Performed By: #### I NFLUAB #### [facility] [address] [place] [address] Dr. Jh Boudreaux POINT OF CARE GLUCOSEon 02-25 Glucose [Mass/Vol] 215 mg/dL Critically high 74-106 [facility] Comment on above: Performed By: #### B DENISE, HSTROPN #### [facility] [address] [place] [address] Dr. Jh Boudreaux PROF CHEM 8 (BAS METB)on Anion gap [Moles/Vol] 12.2 mmol/L Normal [facility] Comment on above: Performed By: #### B DENISE, HSTROPN #### [facility] [address] [place] [address] Dr. Jh Boudreaux Calcium [Mass/Vol] 8.9 mg/dL Normal 8.5-10.1 [facility] Comment on above: Performed By: #### B DENISE, HSTROPN #### [facility] [address] [place] [address] Dr. Jh Boudreaux Chloride [Moles/Vol] 98 mmol/L Normal 98-107 [facility] Comment on above: Performed By: #### B DENISE, HSTROPN #### [facility] [address] [place] [address] Dr. Jh Boudreaux CO2 [Moles/Vol] 27.9 mmol/L Normal 21.0-32.0 [facility] Comment on above: Performed By: #### B MP, HSTROPN #### [facility] [address] [place] [address] Dr. Jh Boudreaux Creatinine [Mass/Vol] 1.24 mg/dL Normal 0.70-1.30 [facility] Comment on above: Performed By: #### B MP, HSTROPN #### [facility] [address] [place] [address] Dr. Jh Boudreaux EGFR-AF SRI LANKAN >60 Normal >=60 [facility] Comment on above: Performed By: #### B DENISE, HSTROPN #### [facility] [address] [place] [address] [address] Jh Boudreaux EGFR-NON AF SRI LANKAN 57 mL/min/1.73m2 Critically low >=60 [facility] Comment on above: Performed By: #### B MP, HSTROPN #### [facility] [address] [place] [address] [address] Jh Boudreaux Glucose [Mass/Vol] 62 mg/dL Critically low 74-106 [facility] Comment on above: Performed By: #### B MP, HSTROPN #### [facility] [address] [place] [address] [address] Jh Boudreaux Potassium [Moles/Vol] 5.1 mmol/L Normal 3.5-5.1 [facility] Comment on above: Performed By: #### B MP, HSTROPN #### [facility] [address] [place] [address] [address] Jh Boudreaux Sodium [Moles/Vol] 133 mmol/L Critically low 136-145 [facility] Comment on above: Performed By: #### B MP, HSTROPN #### [facility] [address] [address] [address] Jh Boudreaux Urea nitrogen [Mass/Vol] 23.0 mg/dL Critically high 7.0-18.0 [facility] Comment on above: Performed By: #### B MP, HSTROPN #### [facility] [address] [address] [address] Jh Boudreaux Urea nitrogen/Creatinine [Mass ratio] 18.5 mg/mg Normal [facility] Comment on above: Performed By: #### B MP, HSTROPN #### [facility] [address] [place] [address] Dr. Jh Boudreaux TROPONIN, HIGH SENSITIVITYon 03-24-2022 HSTROP 11.5 pg/mL Normal 4.0-76.1 [facility] Comment on above: Result Comment: CUT- OFF POINTS HAVE BEEN ESTABLISHED BASED ON THE FOURTH UNIVERSAL DEFINITIONS OF MYOCARDIAL INFARCTION. THE UPPER REFERENCE LIMIT (URL) OF TROPONIN, DEFINED THE 99TH PERCENTILE OF cTnI DISTRIBUTION IN A REFERENCE POPULATION, HAS BEEN CONFIRMED THE DECISION THRESHOLD FOR [place] DIAGNOSIS. Performed By: #### B MP, HSTROPN #### [facility] [address] [address] [address] Jh Boudreaux XR CHEST 1 Von [...] IWONA WARNER Date: 2022-03-24 18:37 Normal [facility] CARDIAC ADITHYA 3-6on 2 CK [Catalytic activity/Vol] 32 U/L Critically low 55-170 [facility] Comment on above: Performed By: #### C MREP #### [facility] [address] [place] [address] Dr. Jh Boudreaux CK.MB [Mass/Vol] 1.72 ng/mL Normal <=2.37 [facility] Comment on above: Performed By: #### C MREP #### [facility] [address] [place] [address] Dr. Jh Boudreaux HSTROP 69.6 pg/mL Critically high 4.0-42.2 [facility] Comment on above: Result Comment: CUT- OFF POINTS HAVE BEEN ESTABLISHED BASED ON THE FOURTH UNIVERSAL DEFINITIONS OF MYOCARDIAL INFARCTION. THE UPPER REFERENCE LIMIT (URL) OF TROPONIN, DEFINED THE 99TH PERCENTILE OF cTnI DISTRIBUTION IN A REFERENCE POPULATION, HAS BEEN CONFIRMED THE DECISION THRESHOLD FOR W[place] DIAGNOSIS. Performed By: #### C MREP #### [facility] [address] [place] [address] Dr. Jh Boudreaux CK [Catalytic activity/Vol] 29 U/L Critically low 55-170 [facility] Comment on above: Performed By: #### C MREP #### [facility] [address] [place] [address] Dr. Jh Boudreaux CK.MB [Mass/Vol] 1.57 ng/mL Normal <=2.37 [facility] Comment on above: Performed By: #### C MREP #### [facility] [address] [place] [address] Dr. Jh Boudreaux HSTROP 39.9 pg/mL Normal 4.0-42.2 [facility] Comment on above: Result Comment: CUT- OFF POINTS HAVE BEEN ESTABLISHED BASED ON THE FOURTH UNIVERSAL DEFINITIONS OF MYOCARDIAL INFARCTION. THE UPPER REFERENCE LIMIT (URL) OF TROPONIN, DEFINED THE 99TH PERCENTILE OF cTnI DISTRIBUTION IN A REFERENCE POPULATION, HAS BEEN CONFIRMED THE DECISION THRESHOLD FOR WY DIAGNOSIS. Performed By: #### C MREP #### [facility] [address] [place] [address] Dr. Jh Boudreaux CARDIAC ADITHYA ADMITon 022 CK [Catalytic activity/Vol] 32 U/L Critically low 55-170 [facility] Comment on above: Performed By: #### B DENISE, HSTROPN #### [facility] [address] [place] [address] Dr. Jh Boudreaux CK.MB [Mass/Vol] 1.15 ng/mL Normal <=2.37 [facility] Comment on above: Performed By: #### B DENISE, HSTROPN #### [facility] [address] [place] [address] Dr. Jh Boudreaux HSTROP 11.9 pg/mL Normal 4.0-42.2 [facility] Comment on above: Result Comment: CUT- OFF POINTS HAVE BEEN ESTABLISHED BASED ON THE FOURTH UNIVERSAL DEFINITIONS OF MYOCARDIAL INFARCTION. THE UPPER REFERENCE LIMIT (URL) OF TROPONIN, DEFINED THE 99TH PERCENTILE OF cTnI DISTRIBUTION IN A REFERENCE POPULATION, HAS BEEN CONFIRMED THE DECISION THRESHOLD FOR WY DIAGNOSIS. Performed By: #### B MP, HSTROPN #### [facility] [address] [place] [address] Dr. Jh Boudreaux GENA 25.0 ng/mL Normal <=121.0 [facility] Comment on above: Performed By: #### B MP, HSTROPN #### [facility] [address] [address] [address] Jh Boudreaux CBC AUTO DIFFon 05-19-2021 BASO # 0.0 103/ul Normal 0.0-0.1 [facility] Comment on above: Performed By: #### C BC #### [facility] [address] [address] [address] Jh Boudreaux Basophils/100 WBC (Bld) 0.3 % Normal 0.2-2.0 [facility] Comment on above: Performed By: #### C BC #### [facility] [address] [address] [address] Jh Boudreaux EO # 0.2 103/ul Normal 0.0-0.7 [facility] Comment on above: Performed By: #### C BC #### [facility] [address] [place] [address] Dr. Jh Boudreaux Eosinophils/100 WBC (Bld) 2.0 % Normal 0.9-7.0 [facility] Comment on above: Performed By: #### C BC #### [facility] [address] [place] [address] Dr. Jh Boudreaux Erythrocyte distribution width (RBC) [Ratio] 12.2 % Normal 11.0-15.0 [facility] Comment on above: Performed By: #### C BC #### [facility] [address] [place] [address] Dr. Jh Boudreaux Hematocrit (Bld) [Volume fraction] 33.7 % Critically low 42.0-54.0 [facility] Comment on above: Performed By: #### C BC #### [facility] [address] [place] [address] Dr. Jh Boudreaux Hemoglobin (Bld) [Mass/Vol] 11.8 g/dL Critically low 14.0-18.0 [facility] Comment on above: Performed By: #### C BC #### [facility] [address] [place] [address] Dr. Jh Boudreaux IG # 0.04 10e3/ul Critically high 0.00-0.03 [facility] Comment on above: Performed By: #### C BC #### [facility] [address] [place] [address] Dr. Jh Bouderaux IG % 0.5 % Normal 0.0-0.5 [facility] Comment on above: Performed By: #### C BC #### [facility] [address] [place] [address] Dr. Jh Boudreaux LYMPH # 1.2 103/ul Normal 1.2-3.8 [facility] Comment on above: Performed By: #### C BC #### [facility] [address] [place] [address] Dr. Jh Boudreaux Lymphocytes/100 WBC (Bld) 15.3 % Critically low 20.5-60.0 [facility] Comment on above: Performed By: #### C BC #### [facility] [address] [place] [address] Dr. Jh Boudreaux MANUAL DIFF REQ NO Normal [facility] Comment on above: Performed By: #### C BC #### [facility] [address] [place] [address] Dr. Jh Boudreaux MCH (RBC) [Entitic mass] 31.6 pg Normal 25.9-34.0 [facility] Comment on above: Performed By: #### C BC #### [facility] [address] [place] [address] Dr. Jh Boudreaux MCHC (RBC) [Mass/Vol] 35.0 g/dL Normal 29.9-35.2 [facility] Comment on above: Performed By: #### C BC #### [facility] [address] [place] [address] Dr. Jh Boudreaux MCV (RBC) [Entitic vol] 90.1 fL Normal 80.0-94.0 [facility] Comment on above: Performed By: #### C BC #### [facility] [address] [place] [address] Dr. Jh Boudreaux MONO # 0.5 103/ul Normal 0.3-0.8 [facility] Comment on above: Performed By: #### C BC #### [facility] [address] [address] [address] Jh Boudreaux Monocytes/100 WBC (Bld) 6.3 % Normal 1.7-12.0 [facility] Comment on above: Performed By: #### C BC #### [facility] [address] [address] [address] Jh Boudreaux NEUT # 5.9 103/ul Normal 1.4-6.5 [facility] Comment on above: Performed By: #### C BC #### [facility] [address] [address] [address] Jh Boudreaux Neutrophils/100 WBC (Bld) 75.6 % Critically high 43.0-75.0 [facility] Comment on above: Performed By: #### C BC #### [facility] [address] [place] [address] Dr. Jh Boudreaux Platelet mean volume (Bld) [Entitic vol] 9.0 fL Critically low 9.5-13.5 [facility] Comment on above: Performed By: #### C BC #### [facility] [address] [address] [address] Jh Boudreaux PLT 164 103/ul Normal 150-450 [facility] Comment on above: Performed By: #### C BC #### [facility] [address] [place] [address] Dr. Jh Boudreaux RBC 3.74 106/ul Critically low 4.70-6.10 [facility] Comment on above: Performed By: #### C BC #### [facility] [address] [place] [address] Dr. Jh Boudreaux WBC 7.8 103/ul Normal 4.0-11.0 [facility] Comment on above: Performed By: #### C BC #### [facility] [address] [place], [place] [id number] Dr. Jh Boudreaux CT HEAD WO CONon [...] DELVIS LUND Date: 2021-05-19 04:40 Normal [facility] Covid-19 PCR (CVDTBH)on 04-27 SARS-CoV-2 (COVID-19) RNA PETER+probe Ql (Unsp spec) Not detected Normal NOT DETECTED [facility] Comment on above: Result Comment: When diagnostic testing is negative, the possibility of a false negative should be considered in the context of a patient's recent exposures and the presence of clinical signs and symptoms consistent with SARS-CoV-2. This test is not yet approved or cleared by the [place] Food and Drug Administration (FDA). This test was developed by [employer] [place], [place]. The performance characteristics of this test were validated by [facility]. The results are not intended to be used as the sole means for clinical diagnosis or patient management decisions. [facility] is authorized under Clinical Laboratory Improvement [...] for this test is supported by the Clinical Research Scientist of Health and Human Service's declaration that [...] Performed By: #### B , HSTROPN #### [facility] [address] [address] [address] Jh Boudreaux MRI BRAIN WO CONon [...] AUNDREA ADAM Date: 2021-05-19 12:42 Normal [facility] POINT OF CARE GLUCOSEon - Glucose [Mass/Vol] 76 mg/dL Normal 74-106 [facility] Comment on above: Performed By: #### B DENISE, HSTROPN #### [facility] [address] [address] [address] Jh Boudreaux Glucose [Mass/Vol] 217 mg/dL Critically high 74-106 [facility] Comment on above: Performed By: #### C MREP #### [facility] [address] [place] [address] Dr. Jh Boudreaux PROF CHEM 8 (BAS METB)on Anion gap [Moles/Vol] 11.9 mmol/L Normal [facility] Comment on above: Performed By: #### B DENISE, HSTROPN #### [facility] [address] [place] [address] Dr. Jh Boudreaux Calcium [Mass/Vol] 8.7 mg/dL Normal 8.4-10.2 [facility] Comment on above: Performed By: #### B DENISE HSTROPN #### [facility] [address] [place] [address] Dr. Jh Boudreaux Chloride [Moles/Vol] 101 mmol/L Normal 98-107 [facility] Comment on above: Performed By: #### B DENISE, HSTROPN #### [facility] [address] [place] [address] Dr. Jh Boudreaux CO2 [Moles/Vol] 25.4 mmol/L Normal 22.0-30.0 [facility] Comment on above: Performed By: #### B DENISE, HSTROPN #### [facility] [address] [place] [address] Dr. Jh Boudreaux Creatinine [Mass/Vol] 1.11 mg/dL Normal 0.66-1.25 [facility] Comment on above: Performed By: #### B DENISE, HSTROPN #### [facility] [address] [place] [address] Dr. Jh Boudreaux EGFR-AF SRI LANKAN >60 Normal >=60 [facility] Comment on above: Performed By: #### B DENISE, HSTROPN #### [facility] [address] [place] [address] Dr. Jh Boudreaux EGFR-NON AF SRI LANKAN >60 Normal >=60 [facility] Comment on above: Performed By: #### B DENISE, HSTROPN #### [facility] [address] [address] [address] Jh Boudreaux Glucose [Mass/Vol] 214 mg/dL Critically high 74-106 [facility] Comment on above: Performed By: #### B DENISE, HSTROPN #### [facility] [address] [address] [address] Jh Boudreaux Potassium [Moles/Vol] 4.3 mmol/L Normal 3.4-5.0 [facility] Comment on above: Performed By: #### B DENISE, HSTROPN #### [facility] [address] [place] [address] Dr. Jh Boudreaux Sodium [Moles/Vol] 134 mmol/L Critically low 137-145 [facility] Comment on above: Performed By: #### B DENISE HSTROPN #### [facility] [address] [place] [address] Dr. Jh Boudreaux Urea nitrogen [Mass/Vol] 23.0 mg/dL Critically high 9.0-20.0 [facility] Comment on above: Performed By: #### Elsi WALKER, HSTROPN #### [facility] [address] [place] [address] Dr. Jh Boudreaux Urea nitrogen/Creatinine [Mass ratio] 20.7 mg/mg Normal [facility] Comment on above: Performed By: #### B DENISE HSTROPN #### [facility] [address] [place] [address] Dr. Jh Boudreaux XR FOREIGN BODY EYEon 2021 XR FOREIGN BODY EYE EXAMINATION: XR FOREIGN BODY EYE HISTORY: vertigo COMPARISON: No relevant comparison available. FINDINGS: ORBITS: Negative for a metallic foreign body. OTHER: Negative. IMPRESSION: 1. No metallic foreign body within the orbits. Electronically authenticated by: CJ MESSINA Date: 2021-05-19 11:55 Normal [facility] XR CHEST 1 Von 05-04-2021 XR CHEST 1 V This study was read during a downtime in the [employer] PACS system. The actual time dictated and [...] on 05/03/2021 at 14:51 Electronically authenticated by: JC MESSINA Date: 2021-05-04 16:13 Normal [facility] BNPon 05-03-2021 Natriuretic peptide B (Bld) [Mass/Vol] 1093.0 pg/mL Critically high <=900.0 [facility] Comment on above: Performed By: #### C MP, CMADM, BNP #### [facility] [address] [address] [address] Jh Boudreaux CARDIAC ADITHYA ADMITon 022 CK [Catalytic activity/Vol] 42 U/L Critically low 55-170 [facility] Comment on above: Performed By: #### C MP, CMADM, BNP #### [facility] [address] [address] [address] Jh Boudreaux CK.MB [Mass/Vol] 1.12 ng/mL Normal <=2.37 [facility] Comment on above: Performed By: #### C MP, CMADM, BNP #### [facility] [address] [address] [address] Jh Boudreaux HSTROP 13.3 pg/mL Normal 4.0-42.2 [facility] Comment on above: Result Comment: CUT- OFF POINTS HAVE BEEN ESTABLISHED BASED ON THE FOURTH UNIVERSAL DEFINITIONS OF MYOCARDIAL INFARCTION. THE UPPER REFERENCE LIMIT (URL) OF TROPONIN, DEFINED THE 99TH PERCENTILE OF cTnI DISTRIBUTION IN A REFERENCE POPULATION, HAS BEEN CONFIRMED THE DECISION THRESHOLD FOR [place] DIAGNOSIS. Performed By: #### C MP, CMADM, BNP #### [facility] [address] [place] [address] Dr. Jh Boudreaux GENA 38.0 ng/mL Normal <=121.0 [facility] Comment on above: Performed By: #### C MP, CMADM, BNP #### [facility] [address] [place] [address] Dr. Jh Boudreaux CBC AUTO DIFFon 05-03-2021 BASO # 0.0 103/ul Normal 0.0-0.1 [facility] Comment on above: Performed By: #### C MREP #### [facility] [address] [place] [address] Dr. Jh Boudreaux Basophils/100 WBC (Bld) 0.2 % Normal 0.2-2.0 [facility] Comment on above: Performed By: #### C MREP #### [facility] [address] [place] [address] Dr. Jh Boudreaux EO # 0.2 103/ul Normal 0.0-0.7 [facility] Comment on above: Performed By: #### C MREP #### [facility] [address] [place] [address] Dr. Jh Boudreaux Eosinophils/100 WBC (Bld) 2.0 % Normal 0.9-7.0 [facility] Comment on above: Performed By: #### C MREP #### [facility] [address] [place] [address] Dr. Jh Boudreaux Erythrocyte distribution width (RBC) [Ratio] 12.4 % Normal 11.0-15.0 [facility] Comment on above: Performed By: #### C MREP #### [facility] [address] [place] [address] Dr. Jh Boudreaux Hematocrit (Bld) [Volume fraction] 37.6 % Critically low 42.0-54.0 [facility] Comment on above: Performed By: #### C MREP #### [facility] [address] [place] [address] Dr. Jh Boudreaux Hemoglobin (Bld) [Mass/Vol] 13.0 g/dL Critically low 14.0-18.0 [facility] Comment on above: Performed By: #### C MREP #### [facility] [address] [address] [address] Jh Boudreaux IG # 0.04 10e3/ul Critically high 0.00-0.03 [facility] Comment on above: Performed By: #### C MREP #### [facility] [address] [place] [address] Dr. Jh Boudreaux IG % 0.5 % Normal 0.0-0.5 [facility] Comment on above: Performed By: #### C MREP #### [facility] [address] [place] [address] Dr. Jh Boudreaux LYMPH # 1.3 103/ul Normal 1.2-3.8 [facility] Comment on above: Performed By: #### C MREP #### [facility] [address] [place] [address] Dr. Jh Boudreaux Lymphocytes/100 WBC (Bld) 14.5 % Critically low 20.5-60.0 [facility] Comment on above: Performed By: #### C MREP #### [facility] [address] [place] [address] Dr. Jh Boudreaux MANUAL DIFF REQ NO Normal [facility] Comment on above: Performed By: #### C MREP #### [facility] [address] [place] [address] Dr. Jh Boudreaux MCH (RBC) [Entitic mass] 30.8 pg Normal 25.9-34.0 [facility] Comment on above: Performed By: #### C MREP #### [facility] [address] [place] [address] Dr. Jh Boudreaux MCHC (RBC) [Mass/Vol] 34.6 g/dL Normal 29.9-35.2 [facility] Comment on above: Performed By: #### C MREP #### [facility] [address] [place] [address] Dr. Jh Boudreaux MCV (RBC) [Entitic vol] 89.1 fL Normal 80.0-94.0 [facility] Comment on above: Performed By: #### C MREP #### [facility] [address] [place] [address] Dr. Jh Boudreaux MONO # 0.7 103/ul Normal 0.3-0.8 [facility] Comment on above: Performed By: #### C MREP #### [facility] [address] [place] [address] Dr. Jh Boudreaux Monocytes/100 WBC (Bld) 7.8 % Normal 1.7-12.0 [facility] Comment on above: Performed By: #### C MREP #### [facility] [address] [place] [address] Dr. Jh Boudreaux NEUT # 6.5 103/ul Normal 1.4-6.5 [facility] Comment on above: Performed By: #### C MREP #### [facility] [address] [place] [address] Dr. Jh Boudreaux Neutrophils/100 WBC (Bld) 75.0 % Normal 43.0-75.0 [facility] Comment on above: Performed By: #### C MREP #### [facility] [address] [place] [address] Dr. Jh Boudreaux Platelet mean volume (Bld) [Entitic vol] 9.5 fL Normal 9.5-13.5 [facility] Comment on above: Performed By: #### C MREP #### [facility] [address] [place] [address] Dr. Jh Boudreaux PLT 240 103/ul Normal 150-450 [facility] Comment on above: Performed By: #### C MREP #### [facility] [address] [place] [address] Dr. Jh Boudreaux RBC 4.22 106/ul Critically low 4.70-6.10 [facility] Comment on above: Performed By: #### C MREP #### [facility] [address] [place] [address] Dr. Jh Boudreaux WBC 8.6 103/ul Normal 4.0-11.0 [facility] Comment on above: Performed By: #### C MREP #### [facility] [address] [place] [address] Dr. Jh Boudreaux CULTURE BLOODon 05-03-2021 Microscopic examination of blood, culture Culture Observations: NO GROWTH AT 5 DAYS. Normal [facility] Comment on above: Performed By: #### B MP, HSTROPN #### [facility] [address] [place] [address] Dr. Jh Boudreaux Microscopic examination of blood, culture Culture Observations: NO GROWTH AT 5 DAYS. Normal [facility] Comment on above: Performed By: #### B MP, HSTROPN #### [facility] [address] [place] [address] Dr. Jh Boudreaux Covid-19 PCR (CVDTBH)on SARS-CoV-2 (COVID-19) RNA PETER+probe Ql (Unsp spec) Not detected Normal NOT DETECTED [facility] Comment on above: Result Comment: When diagnostic testing is negative, the possibility of a false negative should be considered in the context of a patient's recent exposures and the presence of clinical signs and symptoms consistent with SARS-CoV-2. This test is not yet approved or cleared by the [place] Food and Drug Administration (FDA). This test was developed by [employer] [place], [place]. The performance characteristics of this test were validated by [facility]. The results are not intended to be used as the sole means for clinical diagnosis or patient management decisions. [facility] is authorized under Clinical Laboratory Improvement [...] for this test is supported by the [place] of Health and Human Service's declaration that [...] used). Performed By: #### C MREP #### [facility] [address] [place] [address] Dr. Jh Boudreaux LACTATE/LACTIC ACIDon 2021 Lactate [Moles/Vol] 1.8 mmol/L Normal 0.7-2.0 [facility] Comment on above: Performed By: #### C MREP #### [facility] [address] [place] [address] Dr. Jh Boudreaux PROF 14(COMP METB)on 022 Albumin [Mass/Vol] 3.8 g/dL Normal 3.5-5.0 [facility] Comment on above: Performed By: #### C MP, CMADM, BNP #### [facility] [address] [place] [address] Dr. Jh Boudreaux Albumin/Globulin [Mass ratio] 1.2 {ratio} Normal [facility] Comment on above: Performed By: #### C MP, CMADM, BNP #### [facility] [address] [place] [address] Dr. Jh Boudreaux ALP [Catalytic activity/Vol] 78 U/L Normal 38-126 [facility] Comment on above: Performed By: #### C MP, CMADM, BNP #### [facility] [address] [place] [address] Dr. Jh Boudreaux ALT [Catalytic activity/Vol] 20 U/L Critically low 21-72 [facility] Comment on above: Performed By: #### C MP, CMADM, BNP #### [facility] [address] [place] [address] Dr. Jh Boudreaux Anion gap [Moles/Vol] 13.5 mmol/L Normal [facility] Comment on above: Performed By: #### C MP, CMADM, BNP #### [facility] [address] [address] [address] Jh Boudreaux AST [Catalytic activity/Vol] 19 U/L Normal 17-59 [facility] Comment on above: Performed By: #### C MP, CMADM, BNP #### [facility] [address] [place] [address] Dr. Jh Boudreaux Bilirubin [Mass/Vol] 0.8 mg/dL Normal 0.2-1.3 [facility] Comment on above: Performed By: #### C MP, CMADM, BNP #### [facility] [address] [address] [address] Jh Boudreaux Calcium [Mass/Vol] 9.2 mg/dL Normal 8.4-10.2 [facility] Comment on above: Performed By: #### C MP, CMADM, BNP #### [facility] [address] [place] [address] Dr. Jh Boudreaux Chloride [Moles/Vol] 96 mmol/L Critically low 98-107 [facility] Comment on above: Performed By: #### C MP, CMADM, BNP #### [facility] [address] [place] [address] Dr. Jh Boudreaux CO2 [Moles/Vol] 26.2 mmol/L Normal 22.0-30.0 [facility] Comment on above: Performed By: #### C MP, CMADM, BNP #### [facility] [address] [address] [address] Jh Boudreaux Creatinine [Mass/Vol] 0.91 mg/dL Normal 0.66-1.25 [facility] [facility] Comment on above: Performed By: #### C MP, CMADM, BNP #### [facility] [address] [place] [address] Dr. Jh Boudreaux EGFR-AF SRI LANKAN >60 Normal >=60 [facility] Comment on above: Performed By: #### C MP, CMADM, BNP #### [facility] [address] [place] [address] Dr. Jh Boudreaux EGFR-NON AF SRI LANKAN >60 Normal >=60 [facility] Comment on above: Performed By: #### C MP, CMADM, BNP #### [facility] [address] [place] [address] Dr. Jh Boudreaux Globulin (S) [Mass/Vol] 3.3 g/dL Normal [facility] Comment on above: Performed By: #### C MP, CMADM, BNP #### [facility] [address] [place] [address] Dr. Jh Boudreaux Glucose [Mass/Vol] 116 mg/dL Critically high 74-106 [facility] Comment on above: Performed By: #### C MP, CMADM, BNP #### [facility] [address] [place] [address] Dr. Jh Boudreaux Potassium [Moles/Vol] 4.7 mmol/L Normal 3.4-5.0 [facility] Comment on above: Performed By: #### C MP, CMADM, BNP #### [facility] [address] [place] [address] Dr. Jh Boudreaux Protein [Mass/Vol] 7.1 g/dL Normal 6.1-8.2 [facility] Comment on above: Performed By: #### C MP, CMADM, BNP #### [facility] [address] [place] [address] Dr. Jh Boudreaux Sodium [Moles/Vol] 131 mmol/L Critically low 137-145 [facility] Comment on above: Performed By: #### C MP, CMADM, BNP #### [facility] [address] [place] [address] Dr. Jh Boudreaux Urea nitrogen [Mass/Vol] 16.0 mg/dL Normal 9.0-20.0 [facility] Comment on above: Performed By: #### C MP, CMADM, BNP #### [facility] [address] [place] [address] Dr. Jh Boudreaux Urea nitrogen/Creatinine [Mass ratio] 17.6 mg/mg Normal [facility] Comment on above: Performed By: #### C MP, CMADM, BNP #### [facility] [address] [place] [address] Dr. Jh Boudreaux PROTIMEon 05-03-2021 INR Coag (PPP) [Relative time] 1.01 {INR} Normal [facility] Comment on above: Performed By: #### C MREP #### [facility] [address] [place] [address] Dr. Jh Boudreaux INR GUIDELINES SEE BELOW Normal [facility] Comment on above: Result Comment: NADIRA RED INR: 2.0 - 3.0 CONDITIONS NOT LISTED BELOW 2.5 - 3.5 FOR PROSTHETIC HEART VALVE REPLACEMENT 2.5 - 3.5 RECURRENT THROMBOSIS Performed By: #### C MREP #### [facility] [address] [place] [address] Dr. Jh Boudreaux PT Coag (PPP) [Time] 10.9 s Normal 9.0-11.6 [facility] Comment on above: Performed By: #### C MREP #### [facility] [address] [place] [address] Dr. Jh Boudreaux PTTon 05-03-2021 aPTT Coag (Bld) [Time] 27.1 s Normal 22.3-36.2 [facility] Comment on above: Performed By: #### C MREP #### [facility] [address] [place] [address] Dr. Jh Boudreaux Vital Signs Date Time Vital Sign Value Performing Clinician Faci lity 11-25-2024 10:32-0400 Body height 167.6 cm Alda Shea MD Work Phone: [facility] 11-25-2024 10:32-0400 Body mass index (BMI) [Ratio] 15.82 kg/m2 Alda Shea MD Work Phone: [facility] 11-25-2024 10:32-0400 Body weight 44.45 kg Alda Shae MD Work Phone: [facility] 11-25-2024 10:32-0400 Diastolic blood pressure 70 mm[Hg] Alda Shea MD Work Phone: [facility] 09-02-2025 10:32-0400 Heart rate 66 /min Alda Shea MD Work Phone: [facility] 11-25-2024 10:32-0400 SaO2% (BldA) [Mass fraction] 98 % Alda Shea MD Work Phone: [facility] 11-25-2024 10:32-0400 Systolic blood pressure 110 mm[Hg] Alda Shea MD Work Phone: [facility] 08-04-2024 13:07-0400 Body height 167.6 cm Alda Shea MD Work Phone: [facility] 08-04-2024 13:07-0400 Body mass index (BMI) [Ratio] 15.66 kg/m2 Alda Shea MD Work Phone: [facility] 08-04-2024 13:07-0400 Body weight 44 kg Alda Shea MD Work Phone: [facility] 08-04-2024 13:07-0400 Diastolic blood pressure 68 mm[Hg] Alda Shea MD Work Phone: [facility] 08-04-2024 13:07-0400 Heart rate 93 /min Alda Shea MD Work Phone: [facility] 08-04-2024 13:07-0400 SaO2% (BldA) [Mass fraction] 99 % Alda Shea MD Work Phone: [facility] 08-04-2024 13:07-0400 Systolic blood pressure 112 mm[Hg] Alda Shea MD Work Phone: [facility] 02-05-2024 13:39-0500 Body height 167.6 cm Alda Shea MD Work Phone: [facility] 02-05-2024 13:39-0500 Body mass index (BMI) [Ratio] 16.62 kg/m2 Alda Shea MD Work Phone: [facility] 02-05-2024 13:39-0500 Body weight 46.72 kg Alda Shea MD Work Phone: [facility] 02-05-2024 13:39-0500 Diastolic blood pressure 78 mm[Hg] Alda Shea MD Work Phone: [facility] 02-05-2024 13:39-0500 Systolic blood pressure 104 mm[Hg] Alda Shea MD Work Phone: [facility] Encounters Encounter Date Encounter Type Care Provider Facility Start: 11-25-2024 End: 11-25-2024 Office outpatient visit 25 minutes Alda Shea MD Work Phone: [facility] Comment on above: Inguinal hernia [...] hemosiderin, quant Alda Shea MD Work Phone: [facility] Start: 08-04-2024 End: 08-04-2024 Patient encounter procedure Alda Shea MD Work Phone: [facility] Comment on above: Routine general medi bo examination at health care facility (Primary Dx); Type 2 diabetes mellitus without complication, unspecified whether assisted insulin use; Type 2 diabetes mellitus with stage 3a chronic kidney disease, with long-term current use of insulin (HCC) ([facility]); Chronic obstructive pulmonary disease, unspecified; Unintentional [...] encounter procedure Alda Shea MD Work Phone: [facility] Start: 04-29-2023 Chart abstracting Alda Shea MD Work Phone: [facility] Start: 03-24-2022 End: 03-24-[address] ALDA SHEA Facility:[facility] Start: 05-19-2021 End: 05-19-[address] ALDA SHEA Facility:[facility] Start: 05-03-2021 End: 05-03-[address] ALDA SEHA Facility:[facility] Start: 10-15-2017 End: 10-15-2017 Patient encounter ROSA [facility]IA DIAZ [facility] Procedures Date Procedure Procedure Detail Performing [...] Annual Wellness (AWV) Medicare Annual Wellness (AWV) [facility] Start: 07-25-2025 Urine screening for protein Diabetes: Urine Protein Screening [facility] Start: 11-25-2024 End: 11-25-2025 PSA, total and free PSA, total and free Lab Routine Elevated PSA Expected: 11/25/2024 (Approximate), Expires: 11/25/2025 [facility] Work Phone: Comment on above: Expected: 11/25/2024 (Approximate), Expires: 11/25/2025 Start: 11-24-2024 Influenza vaccination Influenza Vacc ine (#1) [facility] Start: 10-25-2024 Hemoglobin A1c measurement Diabetes: Hemoglobin A1C [facility] Start: 08-04-2024 End: 08-04-2024 Patient encounter procedure [facility] Comment on above: Arrived Start: 07-08-2024 Urine screening for protein Diabetes: Urine Protein Screening [facility] Start: 06-13-2024 Medicare Annual Wellness (AWV) Medicare Annual Wellness (AWV) [facility] Start: 05-07-2024 Hemoglobin A1c measurement Diabetes: Hemoglobin A1C [facility] Start: 02-13-2024 Screening for malign ant neoplasm of colon [facility] Start: 02-05-2024 End: 02-04-2025 Noninvasive colorectal cancer DNA and occult blood screening [Presence] in Stool Cologuard colon cancer screening Lab Routine Screening for colon cancer Expected: 02/05/2024 (Approximate), Expires: 02/04/2025 [facility] Work Phone: Comment on above: Expected: 02/05/2024 (Approximate), Expires: 02/04/2025 Start: 05-22-2023 End: 05-22-2023 Patient encounter procedure 05/22/2023 1:00 PM EST Office Visit [facility] [address] [facility] [address] [place] [phone] Alda Shea MD [address] [facility] [address] [place] [address] [facility] Start: 04-30-2023 End: 04-30-2023 Patient encounter procedure 04/30/2023 11:15 AM EST Office Visit [facility] [address] [facility] [address] [place] [phone] Alda Shea MD [address] [address] [facility] Start: 02-20-2023 Hemoglobin A1c measurement Diabetes: Hemoglobin A1C [facility] Start: 09-17-2020 Glaucoma screening Diabetes: R etinopathy Screening [facility] Start: 1950 Medicare Annual Wellness (AWV) Medicare Annual Wellness (AWV) [facility] Start: 1950 Screening for malign ant neoplasm of colon [facility] Immunizations Immunization Date Immunization Notes Care Provider Fa cility 02-05-2024 Influenza, High-dose Seasonal, Quadrivalent, Preservative Free Alda Shea MD Work Phone: [facility] 02-05-2024 influenza virus vacc ine, unspecified formulation Alda Shea MD Work Phone: [facility] 02-06-2023 Influenza, High-dose Seasonal, Quadrivalent, Preservative Free Alda Shea MD Work Phone: [facility] 02-02-2022 influenza, high dose seasonal, preservative-free Alda Shea MD Work Phone: [facility] 03-09-2021 Influenza, High-dose Seasonal, Quadrivalent, Preservative Free Alda Shea MD Work Phone: [facility] 01-07-2020 Seasonal, quadrivale nt, recombinant, injectable influenza vaccine, preservative free Alda Shea MD Work Phone: [facility] 02-06-2019 Influenza, High-dose Seasonal, Quadrivalent, Preservative Free Alda Shea MD Work Phone: [facility] 02-01-2018 Influenza, High-dose Seasonal, Quadrivalent, Preservative Free Alda Shea MD Work Phone: [facility] 01-11-2017 pneumococcal polysaccharide vaccine, 23 valent Alda Shea MD Work Phone: [facility] 12-28-2016 Influenza, High-dose Seasonal, Quadrivalent, Preservative Free Alda Shea MD Work Phone: [facility] 08-02-2015 pneumococcal conjuga te vaccine, 13 valent Alda Shea MD Work Phone: [facility] 07-30-2015 pneumococcal conjuga te vaccine, 13 valent Alda Shea MD Work Phone: [facility] 07-30-2015 zoster vaccine, live Alda kinney MD Work Phone: [facility] 12-11-2012 tetanus and diphther ia toxoids, adsorbed, preservative free, for adult use (2 Lf of tetanus toxoid and 2 Lf of diphtheria toxoid) Alda Shea MD Work Phone: [facility] 12-29-2011 influenza, seasonal, injectable, preservative free Alda Shea MD Work Phone: [facility] Payers Date Payer Category Payer Medicare (Managed Care) [facility] [id number] 2024 Medicare [id number] 2017 Medicare [id number] 2014 Unknown [id number] 1959 Medicare [id number] 1948 Unknown [id number] 1948 Unknown [id number] 1948 Unknown [id number] 1948 Unknown [id number] 1948 Unknown [id number] 1948 Unknown [id number] Social History Date Type Detail Facility Start: 01-04-2023 Tobacco smoking status MSIS Smokes t obacco daily [facility] History [...] Health Quest ionnaire 2 item (PHQ-2) [Reported] [facility] 08-04-2024 Patient Health Quest ionnaire 2 item (PHQ-2) [Reported] 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 Rxibgqi-Npecpdgmlej-Smerupuysf (Breztri Aerosphere) 160-9-4.8 MCG/ACT aerosol Inhale 2 puffs every 12 (twelve) hours. carvedilol (Coreg) 6.25 MG tablet Take 1 tablet (6.25 mg) by mouth in the morning and 1 tablet (6.25 mg) before bedtime. 200 tablet 3 Drug Keeler Unifine Pentips 31G X 6 MM mis [...] elsewhere classified COPD (chronic obstructive pulmonary disease) ([facility]) Cough COVID 03/26/2021 Positive Non immunized Diabetes mellitus ([facility]) Dyspnea Esophageal reflux Essential hypertension, benign [...] 1999 :Diabetes mellitus, type 2 without comp. [place] [facility] 2011 Procedure:CXR -[id number]-BDF-KAMALAMAIKEL HAJI;Disease:[id number] Visit Vitals Smoking Status Every Day Review [...] tablet Chew 81 mg 1 (one) time. Ybpjpgz-Dhyetpgrjwi-Tdntxqqszz (Breztri Aerosphere) 160-9-4.8 MCG/ACT aerosol Inhale 2 puffs every 12 (twelve) hours. carvedilol (Coreg) 6.25 MG tablet Take 1 tablet (6.25 mg) by mouth in the morning and 1 tablet (6.25 mg) before bedtime. 200 tablet 3 Drug Keeler Unifine Pentips 31G X 6 MM misc [...] Do you have a medical power of personal injury attorney?: No Objective : BP 112/68 Pulse [...] with long-term current use of insulin (HCC) ([facility]/HCC) No Tobacco use Follow ADA 1800 diet [...] smoked daily. Discussed potential health risks of assisted smoking. Patient voiced understanding. Benefits of cessation, both health and financial, were reviewed. Associated Problem(s): Type 2 diabetes mellitus with stage 3a chronic kidney disease, with long-term current use of insulin ([facility]) ([facility]) No Tobacco use Follow ADA 1800 [...] Associated Problem(s): Hypertension due to endocrine disorder ([facility]) Our specific goals, for your hypertension, [...] tablet Chew 81 mg 1 (one) time. Hiamjnz-Isqptxssvbw-Cszccxlxmd (Breztri Aerosphere) 160-9-4.8 MCG/ACT aerosol Inhale 2 puffs every 12 (twelve) hours. carvedilol (Coreg) 6.25 MG tablet Take 1 tablet (6.25 mg) by mouth in the morning and 1 tablet (6.25 mg) before bedtime. 200 tablet 3 Continuous Blood Gluc Elastic Yarn Twister Helper (hiogiStyle Solange 2 [place]) device 1 Units in the morning and 1 Units at noon and 1 Units in the evening and 1 Units before bedtime. Continuous Blood Gluc Sensor (FreeStyle Solange 2 Sensor) misc 1 Units every 14 (fourteen) days 6 each 3 Drug Keeler Unifine Pentips 31G X 6 MM misc [...] 2000 :Diabetes mellitus, type 2 without comp. [place] [facility]ICATION [facility]NAGEMENT 2011 Procedure:CXR -QIVATZBCDU-A-YUH-TESSALON ADITHYA;Disease:[id number] Visit Vitals BP 104/78 Ht 5' 6 [...] smoked daily. Discussed potential health risks of assisted smoking. Patient voiced understanding. Benefits of cessation, both health and financial, were reviewed. Hypertension due to endocrine disorder ([facility]) - Primary Our specific goals, for [...] with long-term current use of insulin (HCC) ([facility]) No Tobacco use Follow ADA 1800 [...] Surgery Other Visit Diagnoses Unspecified protein-calorie malnutrition ([facility]/HCC) Immunodeficiency due to conditions classified elsewhere ([facility]) Follow up in about 6 months (around 08/04/2024) for Diabetes. documented in this encounter [facility] Note 02-05-2024 Addendum Note - Laurie Blevins MA - 02/05/2024 1:30 PM EST Note Date & Type Note Facility 02-05-2024 Miscellaneous Notes Addended by: LAURIE BLEVINS on: 02/05/2024 02:09 PM Modules accepted: Orders documented in this encounter [facility] Clinical Note 02-05-2024 Addendum Note - Laurie Blevins MA - 02/05/2024 1:30 PM EST Note Date & Type Note Facility 02-05-2024 Note Addended by: LAURIE BLEVINS on: 02/05/2024 02:09 PM Modules accepted: Orders [facility] Clinical Note 02-05-2024 Addendum Note - Laurie Blevins MA - 02/05/2024 1:30 PM EST Note Date & Type Note Facility 02-05-2024 Note Addended by: LAURIE BLEVINS on: 02/05/2024 02:09 PM Modules accepted: Orders [facility] Evaluation note Note Date & Type Note Facility Evaluation note Diagnosis Type 2 diabetes mellitus without complication, unspecified whether extermination inspector insulin use ([facility]) Hypertension due to endocrine disorder ([facility]) Otalgia of both ears- Primary Ear [...] 2 diabetes mellitus without complication, unspecified whether extermination inspector insulin use (CMS/HCC) Infrarenal abdominal aortic aneurysm (AAA) without rupture (CMS/HCC) Medicare annual wellness visit, subsequent Type 2 diabetes mellitus with stage 3a chronic kidney disease, with long-term current use of insulin (HCC) (CMS/HCC) Essential hypertension, benign (CMS/HCC)- Primary Essential hypertension, benign Type 2 diabetes mellitus without complication, unspecified whether extermination inspector insulin use (CMS/HCC) Type 2 diabetes mellitus [...] Encounter for vaccination documented in this encounter [facility] Evaluation note Note Date & Type Note Facility Evaluation note Diagnosis Type 2 diabetes mellitus without complication, unspecified whether assisted insulin use Hypertension due to endocrine disorder [...] 2 diabetes mellitus without complication, unspecified whether extermination inspector insulin use Infrarenal abdominal aortic aneurysm (AAA) without rupture ([facility]/HCC) Medicare annual wellness visit, subsequent Type 2 diabetes mellitus with stage 3a chronic kidney disease, with long-term current use of insulin (HCC) (CMS/HCC) Essential hypertension, benign (CMS/HCC)- Primary Essential hypertension, benign Type 2 diabetes mellitus without complication, unspecified whether assisted insulin use Type 2 diabetes mellitus with [...] of insulin (HCC) (CMS/HCC) Unspecified protein-calorie malnutrition (CMS/[facility]) Unspecified protein-calorie malnutrition Immunodeficiency due to conditions classified elsewhere ([facility]) Smoker Tobacco use disorder Inguinal hernia of left side without obstruction or gangrene Screening for colon cancer Special screening for malignant neoplasms, colon Encounter for vaccination Routine general medical examination at health care facility- Primary Routine general medical examination at a health care facility Type 2 diabetes mellitus without complication, unspecified whether extermination inspector insulin use Type 2 diabetes mellitus with stage 3a chronic kidney disease, with long-term current use of insulin (HCC) (CMS/[facility]) Chronic obstructive pulmonary disease, unspecified Unintentional weight loss of 10% body weight within 6 months Elevated PSA Elevated prostate specific antigen (PSA) Bilateral hearing loss, unspecified hearing loss type documented in this encounter [facility] Evaluation note Note Date & Type Note Facility Evaluation note Diagnosis Type 2 diabetes mellitus without complication, unspecified whether extermination inspector insulin use (HCC) Hypertension due to endocrine [...] 2 diabetes mellitus without complication, unspecified whether assisted insulin use (HCC) Infrarenal abdominal aortic aneurysm (AAA) without rupture Medicare annual wellness visit, subsequent Type 2 diabetes mellitus with stage 3a chronic kidney disease, with long-term current use of insulin (HCC) Essential hypertension, benign- Primary Essential hypertension, benign Type 2 diabetes mellitus without complication, unspecified whether assisted insulin use (HCC) Type 2 diabetes mellitus [...] 2 diabetes mellitus without complication, unspecified whether assisted insulin use (HCC) Type 2 diabetes mellitus [...] DATE CREATED AUTHOR AUTHOR'S ORGANIZ ATION 08/27/2024 [facility] DATE CREATED AUTHOR AUTHOR'S ORGANIZ ATION 11/25/2024 [facility] Care Teams (unrecognized sec tion and content) Data Transcriber Relationship Specialty Start Date End Date Alda Shea MD [address] [facility] [address] [place] [address] PCP - General Family Medicine 09/08/22 Data Transcriber Relationship Specialty Start Date End Date Alda Shea MD [address] [place] [address] PCP - General Family Medicine 09/08/22 Alda Shea MD [address] [facility] [address] [place] [address] PCP - ACO Reach 05/25/23 Data Transcriber Relationship Specialty Start Date End Date Alda Shea MD [address] [facility] [address] [place] [address] PCP - General Family Medicine 09/08/22 Data Transcriber Relationship Specialty Start Date End Date Alda Shea MD [address] [facility] [address] [place] [address] PCP - General Family Medicine 09/08/22 Data Transcriber Relationship Specialty Start Date End Date Alda Shea MD [address] [facility] [address] [place] [address] PCP - General Family Medicine 09/08/22 Reason [...] BE BASED ON THE PRIMARY CLINICAL RECORDS. [facility] [employer] [facility]. provides no warranty or guarantee of the accuracy or completeness of information in this document.
[2024-11-26 05:22] LABS: Hematocrit 30.4 % (42.0-54.0); Hemoglobin 10.4 g/dL (14.0-18.0); Immature Granulocytes Abs Auto 0.02 10^3/uL (0.00-0.03); Immature Granulocytes Pct Auto 0.3 % (0.0-0.5); Lymphocytes Absolute Auto 1.4 10^3/uL (1.2-3.8); Mean Corpuscular HGB Conc 34.2 g/dL (29.9-35.2); Mean Corpuscular Hemoglobin 32.2 pg (25.9-34.0); Mean Corpuscular Volume 94.1 fL (80.0-94.0); Platelet Count 177 10^3/uL (150-450); Red Blood Count 3.23 10^6/uL (4.70-6.10); White Blood Count 7.1 10^3/uL (4.0-11.0)
[2024-11-26 05:42] LABS: Alanine Aminotransferase 24 U/L (16-63); Albumin Globulin Ratio 0.9; Albumin Level 3.0 g/dL (3.4-5.0); Alkaline Phosphatase 124 U/L (46-116); Anion Gap 12.9; Aspartate Amino Transferase 18 U/L (15-37); Blood Urea Nitrogen 47.0 mg/dL (7.0-18.0); Calcium 8.5 mg/dL (8.5-10.1); Carbon Dioxide 23.3 mmol/L (21.0-32.0); Chloride 108 mmol/L (98-107); Estimated GFR (African America 51 (>=60 mL/min/1.73m^2); Estimated GFR (Non-African Ame 42 (>=60 mL/min/1.73m^2); Globulin 3.2 g/dL; Glucose 124 mg/dL (74-106); Potassium 5.2 mmol/L (3.5-5.1); Sodium 139 mmol/L (136-145); Total Protein 6.2 g/dL (6.4-8.2)
--- NOTE | 2024-11-26 08:40 | CM.NOTE ---
Rounds made with Dr. Bradley, pt will discharge to home today after PT and OT evaluation. Pt awake and answering questions appropriately. Dr. Bradley discussed plan of care with pt. Pt will f/u with PCP. Dr. Bradley discussed with pt about D/C Ambien and discussing further with PCP.
--- NOTE | 2024-11-26 11:05 | PM.IMHP1 ---
Internal Medicine - H&P: HPI History of Present Illness Chief complaint: AMBIEN REACTION, FALL Narrative: Mr Dougherty is a 73-year-old male who was admitted to the hospital the very toe former stitchdowns of November 26 after he had a fall at home. Reportedly the patient saw his primary care doctor yesterday, on the second. Noted that he was having hard time sleeping secondary to waking up a lot at night to urinate. He was given a prescription of Ambien, the patient took this, he still woke up in middle night to urinate however he was extremely drowsy and he fell. Family was unable to wake him up so they brought him to the hospital. In the emergency room he was evaluated, CT head was negative, his lab work was unremarkable, he was sleeping comfortably and the family is unable to take him home as they cannot wake him up. He was admitted to the hospital for observation overnight. This morning, the morning of November 26, on my first evaluation of the patient (he was admitted overnight by the overnight physician on-call, my first time evaluating him was the morning of the ) the above story was confirmed, patient is eating breakfast, he feels well and at his baseline. I had a long talk with him about discontinuing the Ambien or perhaps trying a smaller dose or trying other sleep aids that are less sedating. The patient currently has no complaints. Review of Systems ROS Status of ROS 10 or more systems reviewed and unremarkable except as noted in history and below [facility] Medical History (Updated 11/26/24 @ 11:07 by CALEB LYN DO) Hyperglycemia ?R73.9 - Hyperglycemia, unspecified (ICD-10) Acute renal failure ?N17.9 - Acute kidney failure, unspecified (ICD-10) Hyponatremia ?E87.1 - Hypo-osmolality and hyponatremia (ICD-10) Hyperkalemia ?E87.5 - Hyperkalemia (ICD-10) Cirrhosis ?K74.60 - Unspecified cirrhosis of liver (ICD-10) Hyperlipidemia associated with type 2 diabetes mellitus ?E11.69 - Type 2 diabetes mellitus with other specified complication (ICD-10) ?E78.5 - Hyperlipidemia, unspecified (ICD-10) Hypertension ?I10 - Essential (primary) hypertension (ICD-10) COPD (chronic obstructive pulmonary disease) ?J44.9 - Chronic obstructive pulmonary disease, unspecified (ICD-10) Otitis media ?H66.90 - Otitis media, unspecified, unspecified ear (ICD-10) Diabetes ?E11.9 - Type 2 diabetes mellitus without complications (ICD-10) Social History Within the past year, how often did you have a drink containing alcohol: never Score interpretation: A score less than 4 is consistent with normal alcohol consumption. Smoking status: Current every day smoker Non-prescribed substance use: denies use Highest level of school completed/degree received: high school graduate Little interest or pleasure in doing things: not at all Feeling down, depressed, or hopeless: not at all Meds Home Medications and Allergies Home Medications ?Medication ?Instructions ?Recorded ?Confirmed ?Type albuterol sulfate 2.5 mg/3 mL 2.5 mg continuous nebulization Q4H 10/29/22 11/26/24 History (0.083 %) solution for nebulization PRN bronchospasm bupropion HCl 150 mg tablet,12 hr 150 mg PO Q12H 10/29/22 09/17/24 History sustained-release carvedilol 6.25 mg tablet 6.25 mg PO Q12H 10/29/22 11/26/24 History lisinopril 20 mg tablet 20 mg PO DAILY 10/29/22 11/26/24 History metformin 1,000 mg tablet 1,000 mg PO BID 10/29/22 11/26/24 History pravastatin 40 mg tablet 40 mg PO DAILY 10/29/22 11/26/24 History fluticasone propionate 50 2 spray intranasal QD 30 days #1 g 04/23/23 11/26/24 Rx mcg/actuation nasal spray,suspension pen needle, diabetic 31 gauge x #100 ea 04/23/23 11/26/24 Rx 1/6 insulin glargine 100 unit/mL (3 8 unit subcut QPM 09/17/24 11/26/24 History mL) subcutaneous pen (Lantus Solostar U-100 Insulin) ondansetron 4 mg disintegrating 4 mg PO Q6H PRN nausea and 09/17/24 11/26/24 Rx tablet vomiting #20 tabs ciprofloxacin HCl 500 mg tablet 500 mg PO BID 11/26/24 11/26/24 History Allergies Allergy/AdvReac Type Severity Reaction Status Date / Time No Known Drug Allergies Allergy Verified 11/26/24 01:08 Exam Narrative Exam Narrative: General: Awake and alert, no acute distress HEENT: Normocephalic, atraumatic, no scleral icterus noted Lungs: Clear to auscultation bilaterally Cardiac: Regular rate and rhythm, no murmurs appreciated GI: Soft, nontender, regular bowel sounds. Extremities: Active and passive range of motion intact throughout, no edema Neuro: Cranial nerves II through XII intact, no focal deficits noted Skin: No rashes or lesions, no signs of jaundice Constitutional Vital Signs, click to edit/add: Last Vital Signs Temp 97.6 F 11/26/24 06:57 Pulse 93 H 11/26/24 09:53 Resp 18 11/26/24 06:57 BP 158/84 H 11/26/24 06:57 Pulse Ox 95 11/26/24 06:57 O2 Del Method Room Air 11/26/24 06:57 Internal Medicine - H&P: Reslt Labs Labs: Short CBC 11/26/24 11/26/24 Range/Units 01:10 04:48 WBC 6.4 7.1 (4.0-11.0) 10^3/uL Hgb 10.7 L 10.4 L (14.0-18.0) g/dL Hct 32.2 L 30.4 L (42.0-54.0) % Plt Count 190 177 (150-450) 10^3/uL BMP 11/26/24 11/26/24 01:10 04:48 Sodium 138 139 Potassium 5.6 H 5.2 H Chloride 105 108 H Carbon Dioxide 25.8 23.3 BUN 52.0 H 47.0 H Creatinine 1.85 H 1.60 H Glucose 141 H 124 H Calcium 8.8 8.5 Liver Function 11/26/24 11/26/24 Range/Units 01:10 04:48 Total Bilirubin 0.5 0.4 (0.2-1.0) mg/dL AST 19 18 (15-37) U/L ALT 29 24 (16-63) U/L Alkaline Phosphatase 136 H 124 H (46-116) U/L Albumin 3.3 L 3.0 L (3.4-5.0) g/dL Assessment and Plan Assessment and Plan (1) Fall: Assessment and Plan: ? CT head emergency room was negative for any acute process ? He was hemodynamically stable on admission ? This is likely secondary to drowsiness due to new prescription of Ambien being too sedating for him ? Recommend to discontinue Ambien ? This morning he is hemodynamically stable, he has no complaints at all Had a talk with him about using a different sleep aid however he is currently not interested in any of them given how he reacted to this 1. He is agreeable for discharge home this afternoon. There will be no medication changes in this regimen other than discontinue the Ambien. Follow-up with PCP as advised. Qualifiers: Encounter type: initial encounter Qualified Code(s): W19.XXXA - Unspecified fall, initial encounter (2) Medication adverse effect:
--- OUTSIDE RECORDS SUMMARY | 2024-11-27 00:39 | XMS_ITS | CCD ---
Author Organization [facility] Care Team Providers Care Technical Report Writer Name Role Phone ROSA AMRIA DIAZ Unavailable Unavailable ROSA MARIA DIAZ Unavailable Unavailable ALDA SHEA Unavailable Unavailable SHABBIR, DR SANCHEZ Primary Care Unavailable YEIMY MARTINEZ Admitting Unavailable YEIMY MARTINEZ Attending Unavailable Mayuri, DR Coroan Consulting Unavailable YEIMY MARTINEZ Consulting Unavailable SHABBIR, [...] DR TAMICA Gardner Attending Unavailtyler RUSSELL, DR AIDTHYA Bull Consulting Unavailable JOHN, DR TAMICA Gardner [...] tablet 08/04/2024 08/18/2024 Active Continuous Blood Gluc Legal Administrator (FreeStyle Solange 2 Ottertail) device (2 sources) Start: 05-01-2023 End: 04-30-2024 Continuous Blood Gluc Legal Administrator (FreeStyle Solange 2 Ottertail) device Indications: Type 2 diabetes mellitus without [...] complication, without long-term current use of insulin ([facility]) Inject 8 Units under the skin [...] 2 diabetes mellitus without complication, unspecified whether shelter insulin use (HCC) , Type 2 diabetes [...] 2 diabetes mellitus without complication, unspecified whether shelter insulin use (HCC) Take 1 tablet (1,000 [...] disease (1 source) Atherosclerotic heart disease of [place] coronary artery without angina pectoris; Translations: [ASHD [place] W/O ANGINA PECTORIS] Onset: 03-28-2022 Chronic [...] Translations: [Immunodeficiency due to conditions classified elsewhere ([facility])] 02-05-2024 Chronic Immunizations and screening for [...] malnutrition] 02-05-2024 Chronic Other aftercare (1 source) [facility] (current) use of aspirin; Translations: [HALF-WAY CURRENT USE OF ASPIRIN] Onset: 03-28-2022 Episodic Other aftercare (1 source) Other shelter (current) drug therapy; Translations: [OTH HALF-WAY CURRENT DRUG THERAPY] Onset: 03-28-2022 Episodic Other aftercare (1 source) [facility] (current) use of insulin; Translations: [HALF-WAY CURRENT USE OF INSULIN] Onset: 03-28-2022 Episodic Other aftercare (1 source) [facility] (current) use of oral hypoglycemic drugs; Translations: [LOSS PREVENTION AUDITOR USE ORAL HYPOGLYCEMIC DX] Onset: 03-28-2022 Episodic [...] August 26, 2024 FREIDA DOUGHERTY [address] [address] : 1950 Dear Freida, We have been trying to reach you with no success. It is important that you return our call regarding your recent referral upon receiving this letter. Also, at the time of your call, please provide us with your current information. Thank you for your prompt attention to this matter. Sincerely, [facility] [place] [address] [place] [address] Phone [phone], option #3 Fax ~[phone] Normal [facility] ALBUMIN, RANDOM URINE W/CREA TININEon 07-28-2024 ALBUMIN, URINE 1.0 mg/dL Normal See Note: [facility] Comment on above: Result Comment: Refe rence Range: Reference Range Not established Performed By: #### 4 96, 7600, 79139, 6517, 6399 #### [facility] [address], [address] [place] [address] Flight Operations Coordinator: Vito Fragoso MD ALBUMIN/CREATININE RATIO, RANDOM URINE [...] category. Performed By: #### 4 96, 7600, 89508, 6517, 6399 #### [facility] [address], [address] [place] [address] Flight Operations Coordinator: Vito Fragoso MD Creatinine (U) [Mass/Vol] 61 mg/dL Normal 20-320 [facility] Comment on above: Performed By: #### 4 96, 7600, 20108, 6517, 6399 #### [facility] [address], [address] [place] [address] Flight Operations Coordinator: Vito Fragoso MD CBC (INCLUDES DIFF/PLT)on Basophils (Bld) [#/Vol] 0.023 10*3/uL Normal 0-200 [facility] Comment on above: Performed By: #### 4 96, 7600, 93363, 6517, 6399 #### [facility] of [address], [address] [place] [address] Flight Operations Coordinator: Vito Fragoso MD Basophils/100 WBC (Bld) 0.4 % Normal [facility] Comment on above: Performed By: #### 4 96, 7600, 54209, 65, 6399 #### [facility] of [place] [address] Flight Operations Coordinator: Vito Fragoso MD Eosinophils (Bld) [#/Vol] 0.194 10*3/uL Normal 15-500 [facility] Comment on above: Performed By: #### 4 96, 7600, 10532, 6516, 6399 #### [facility] of [address], [address] [place] [address] Flight Operations Coordinator: Vito Fragoso MD Eosinophils/100 WBC (Bld) 3.4 % Normal [facility] Comment on above: Performed By: #### 4 96, 7600, 23204, 65, 6399 #### [facility] [place] [address] Flight Operations Coordinator: Vito Fragoso MD Erythrocyte distribution width (RBC) [Ratio] 12.8 % Normal 11.0-15.0 [facility] Comment on above: Performed By: #### 4 96, 7600, 75472, 6517, 6399 #### [facility] [place] [address] Flight Operations Coordinator: Vito Fragoso MD Hematocrit (Bld) [Volume fraction] 34.8 % Low 38.5-50.0 [facility] Comment on above: Performed By: #### 4 96, 7600, 06772, 6517, 6399 #### [facility] [place] [address] Flight Operations Coordinator: Vito Fragoso MD Hemoglobin (Bld) [Mass/Vol] 11.2 g/dL Low 13.2-17.1 [facility] Comment on above: Performed By: #### 4 96, 7600, 44801, 65, 6399 #### [facility] [place] [address] Flight Operations Coordinator: Vito Fragoso MD Lymphocytes (Bld) [#/Vol] 1.34 10*3/uL Normal 850-3900 [facility] Comment on above: Performed By: #### 4 96, 7600, 56370, 6516, 6399 #### [facility] [place] [address] Flight Operations Coordinator: Vito Fragoso MD Lymphocytes/100 WBC (Bld) 23.5 % Normal [facility] Comment on above: Performed By: #### 4 96, 7600, , 6516, 6399 #### [facility] [place] [address] Flight Operations Coordinator: Vito Fragoso MD MCH (RBC) [Entitic mass] 32.0 pg Normal 27.0-33.0 [facility] Comment on above: Performed By: #### 4 96, 7600, 91896, 65, 6399 #### [facility] [place] [address] Flight Operations Coordinator: Vito Fragoso MD MCHC (RBC) [Mass/Vol] 32.2 [...] condition. Performed By: #### 4 96, 7600, 43254, 65, 6399 #### [facility] [place] [address] Flight Operations Coordinator: Vito Fragoso MD MCV (RBC) [Entitic vol] 99.4 fL Normal 80.0-100.0 [facility] Comment on above: Performed By: #### 4 96, 7600, 47468, 6517, 6399 #### [facility] [place] [address] Flight Operations Coordinator: Vito Fragoso MD Monocytes (Bld) [#/Vol] 0.422 10*3/uL Normal 200-950 [facility] Comment on above: Performed By: #### 4 96, 7600, 42520, 6516, 6399 #### [facility] [place] [address] Flight Operations Coordinator: Vito Fragoso MD Monocytes/100 WBC (Bld) 7.4 % Normal [facility] Comment on above: Performed By: #### 4 96, 7600, 94436, 17, 6399 #### [facility] [place] [address] Flight Operations Coordinator: Vito Fragoso MD Neutrophils (Bld) [#/Vol] 3.722 10*3/uL Normal 0800-9489 [facility] Comment on above: Performed By: #### 4 96, 7600, 84243, 6517, 6399 #### [facility] [place] [address] Flight Operations Coordinator: Vito Fragoso MD Neutrophils/100 WBC (Bld) 65.3 % Normal [facility] Comment on above: Performed By: #### 4 96, 7600, 73415, 6517, 6399 #### [facility] [place] [address] Flight Operations Coordinator: Vito Fragoso MD Platelet mean volume (Bld) [Entitic vol] 10.5 fL Normal 7.5-12.5 [facility] Comment on above: Performed By: #### 4 96, 7600, 35479, 6517, 6399 #### [facility] [place] [address] Flight Operations Coordinator: Vito Fragoso MD Platelets (Bld) [#/Vol] 201 10*3/uL Normal 140-400 [facility] Comment on above: Performed By: #### 4 96, 7600, 11533, 6517, 6399 #### [facility] of [address], [address] [place] [address] Flight Operations Coordinator: Vito Fragoso MD RBC (Bld) [#/Vol] 3.50 10*6/uL Low 4.20-5.80 [facility] Comment on above: Performed By: #### 4 96, 7600, 07907, 6517, 6399 #### [facility] [place] [address] Flight Operations Coordinator: Vito Fragoso MD WBC (Bld) [#/Vol] 5.7 10*3/uL Normal 3.8-10.8 [facility] Comment on above: Performed By: #### 4 96, 7600, 24709, 6517, 6399 #### [facility] [place] [address] Flight Operations Coordinator: Vito Fragoso MD [email or web address]] METABOLIC [facility] 07-28-2024 Albumin [Mass/Vol] 4.0 g/dL Normal 3.6-5.1 [facility] Comment on above: Performed By: #### 4 96, 7600, 10605, 6517, 6399 #### [facility] [place] [address] Flight Operations Coordinator: Vito Fragoso MD Albumin/Globulin [Mass ratio] 1.8 {ratio} Normal 1.0-2.5 [facility] Comment on above: Performed By: #### 4 96, 7600, 94037, 6517, 6399 #### [facility] [place] [address] Flight Operations Coordinator: Vito Fragoso MD ALP [Catalytic activity/Vol] 69 U/L Normal 35-144 [facility] Comment on above: Performed By: #### 4 96, 7600, 60276, 6517, 6399 #### [facility] of [address], [address] [place] [address] Flight Operations Coordinator: Vito Fragoso MD ALT [Catalytic activity/Vol] 9 U/L Normal 9-46 [facility] Comment on above: Performed By: #### 4 96, 7600, 86151, 6517, 6399 #### [facility] of [address], [address] [place] [address] Flight Operations Coordinator: Vito Fragoso MD AST [Catalytic activity/Vol] 14 U/L Normal 10-35 [facility] Comment on above: Performed By: #### 4 96, 7600, 88368, 6517, 6399 #### [facility] of [address], [address] [place] [address] Flight Operations Coordinator: Vito Fragoso MD Bilirubin [Mass/Vol] 0.5 mg/dL Normal 0.2-1.2 [facility] Comment on above: Performed By: #### 4 96, 7600, 22461, 6517, 6399 #### [facility] of [address], [address] [place] [address] Flight Operations Coordinator: Vito Fragoso MD Calcium [Mass/Vol] 9.1 mg/dL Normal 8.6-10.3 [facility] Comment on above: Performed By: #### 4 96, 7600, 54075, 6517, 6399 #### [facility] of [address], [address] [place] [address] Flight Operations Coordinator: Vito Fragoso MD Chloride [Moles/Vol] 108 mmol/L Normal 98-110 [facility] Comment on above: Performed By: #### 4 96, 7600, 07988, 6517, 6399 #### [facility] [place] [address] Flight Operations Coordinator: Vito Fragoso MD CO2 [Moles/Vol] 24 mmol/L Normal 20-32 [facility] Comment on above: Performed By: #### 4 96, 7600, 96138, 6517, 6399 #### [facility] of [address], [address] [place] [address] Flight Operations Coordinator: Vito Fragoso MD Creatinine [Mass/Vol] 1.33 mg/dL High 0.70-1.28 [facility] Comment on above: Performed By: #### 4 96, 7600, 84936, 6517, 6399 #### [facility] [place] [address] Flight Operations Coordinator: Vito Fragoso MD GFR/1.73 sq M.predicted among non-blacks MDRD (S/P/Bld) [Vol rate/Area] 56 mL/min/{1.73_m2} Low > OR = 60 [facility] Comment on above: Performed By: #### 4 96, 7600, 59557, 6517, 6399 #### [facility] [place] [address] Flight Operations Coordinator: Vito Fragoso MD Globulin (S) [Mass/Vol] 2.2 g/dL Normal 1.9-3.7 [facility] Comment on above: Performed By: #### 4 96, 7600, 90982, 6517, 6399 #### [facility] [place] [address] Flight Operations Coordinator: Vito Fragoso MD Glucose [Mass/Vol] 73 mg/dL Normal 65-99 [facility] Comment on above: Result Comment: Fasting reference interval Performed By: #### 4 96, 7600, 90902, 6517, 6399 #### [facility] [place] [address] Flight Operations Coordinator: Vito Fragoso MD Potassium [Moles/Vol] 5.3 mmol/L Normal 3.5-5.3 [facility] Comment on above: Performed By: #### 4 96, 7600, 56964, 6517, 6399 #### [facility] [place] [address] Flight Operations Coordinator: Vito Fragoso MD Protein [Mass/Vol] 6.2 g/dL Normal 6.1-8.1 [facility] Comment on above: Performed By: #### 4 96, 7600, 52251, 6517, 6399 #### [facility] [place] [address] Flight Operations Coordinator: Vito Fragoso MD Sodium [Moles/Vol] 140 mmol/L Normal 135-146 [facility] Comment on above: Performed By: #### 4 96, 7600, 52231, 6517, 6399 #### [facility] [place] [address] Flight Operations Coordinator: Vito Fragoso MD Urea nitrogen [Mass/Vol] 36 mg/dL High 7-25 [facility] Comment on above: Performed By: #### 4 96, 7600, 23878, 6517, 6399 #### [facility] [place] [address] Flight Operations Coordinator: Vito Fragoso MD Urea nitrogen/Creatinine [Mass ratio] 27 mg/mg High 6-22 [facility] Comment on above: Performed By: #### 4 96, 7600, 52703, 6517, 6399 #### [facility] [place] [address] Flight Operations Coordinator: Viot Fragoso MD HEMOGLOBIN A1con 07-28-2024 HbA1c (Bld) [...] children. Performed By: #### 4 96, 7600, 48292, 6517, 6399 #### [facility] [address], [address] [place] [address] Flight Operations Coordinator: Vito Fragoso MD LIPID PANEL, STANDARDon 05-0 Cholesterol [Mass/Vol] 83 mg/dL Normal <200 [facility] Comment on above: Order Comment: FASTI NG:YES FASTING: YES Performed By: #### 4 96, 7600, 18907, 6517, 6399 #### [facility] [address], [address] [place] [address] Flight Operations Coordinator: Vito Fragoso MD Cholesterol in HDL [Mass/Vol] 29 mg/dL Low > OR = 40 [facility] Comment on above: Order Comment: FASTI NG:YES FASTING: YES Performed By: #### 4 96, 7600, 61901, 6517, 6399 #### [facility] [address], [address] [place] [address] Flight Operations Coordinator: Vito Fragoso MD Cholesterol in LDL [Mass/Vol] [...] LDL-C. Len CAMPA et al. ARMANDO. 2013;310(19): 1618-3074 (http://education.Yopolis.MovieLaLa/faq/YKV221) Performed By: #### 4 96, 7600, 89121, 6517, 6399 #### [facility] [address], [address] [place] [address] Flight Operations Coordinator: Vito Fragoso MD Cholesterol.total/C holesterol in HDL [Mass ratio] 2.9 {ratio} Normal <5.0 [facility] Comment on above: Order Comment: FASTI NG:YES FASTING: YES Performed By: #### 4 96, 7600, 00586, 6517, 6399 #### [facility] [address], [address] [place] [address] Flight Operations Coordinator: Vito Fragoso MD NON HDL CHOLESTEROL 54 mg/dL (calc) Normal <130 [facility] Comment on above: Order Comment: FASTI NG:YES FASTING: YES Result Comment: For patients with diabetes plus 1 major ASCVD risk factor, treating to a non-HDL-C goal of <100 mg/dL (LDL-C of <70 mg/dL) is considered a therapeutic option. Performed By: #### 4 96, 7600, 50085, 6517, 6399 #### [facility] [address], [address] [place] [address] Flight Operations Coordinator: Vito Fragoso MD Triglyceride [Mass/Vol] 125 mg/dL Normal <150 [facility] Comment on above: Order Comment: FASTI NG:YES FASTING: YES Performed By: #### 4 96, 7600, 59327, 6517, 6399 #### [facility] [address], [address] [place] [address] Flight Operations Coordinator: Vito Fragoso MD PSA, TOTALon 07-28-2024 PSA, TOTAL 21.90 ng/mL High < OR = 4.00 [facility] Comment on above: Result Comment: The total PSA value from this assay system is standardized against the WHO standard. The test result will be approximately 20% lower when compared to the equimolar-standardized total PSA (Evaristo Elsah). Comparison of serial PSA results should be interpreted with this fact in mind. This test was performed using the Siemens chemiluminescent method. Values obtained from different assay methods cannot be used interchangeably. PSA levels, regardless of value, should not be interpreted as absolute evidence of the presence or absence of disease. Performed By: #### 4 96, 7600, 72225, 6517, 6399 #### [facility] [address], [address] [place] [address] Flight Operations Coordinator: Vito Fragoso MD Laboratory - Hematology and Cell countson 02-05-2024 HbA1c (Bld) [Mass fraction] 6.6 % [facility] No Panel Informationon 02-04 Interpretation and review of laboratory results Abnormal [facility] BNPon 03-24-2022 Natriuretic peptide B (Bld) [Mass/Vol] 752.0 pg/mL Normal <=900.0 [facility] Comment on above: Performed By: #### C MREP #### [facility] [address] [place] [address] Dr. Jh Boudreaux CBC AUTO DIFFon 03-24-2022 BASO # 0.1 103/ul Normal 0.0-0.1 [facility] Comment on above: Performed By: #### C BC #### [facility] [address] [place] [address] Dr. Jh Boudreaux Basophils/100 WBC (Bld) 0.6 % Normal 0.2-2.0 [facility] Comment on above: Performed By: #### C BC #### [facility] [address] [place] [address] Dr. Jh Boudreaux EO # 0.4 103/ul Normal 0.0-0.7 [facility] Comment on above: Performed By: #### C BC #### [facility] [address] [place] [address] Dr. Jh Boudreaux Eosinophils/100 WBC (Bld) 4.5 % Normal 0.9-7.0 [facility] Comment on above: Performed By: #### C BC #### [facility] [address] [place] [address] Dr. Jh Boudreaux Erythrocyte distribution width (RBC) [Ratio] 12.5 % Normal 11.0-15.0 [facility] Comment on above: Performed By: #### C BC #### [facility] [address] [place] [address] Dr. Jh Boudreaux Hematocrit (Bld) [Volume fraction] 38.9 % Critically low 42.0-54.0 [facility] Comment on above: Performed By: #### C BC #### [facility] [address] [place] [address] Dr. Jh Boudreaux Hemoglobin (Bld) [Mass/Vol] 13.3 g/dL Critically low 14.0-18.0 [facility] Comment on above: Performed By: #### C BC #### [facility] [address] [place] [address] Dr. Jh Boudreaux IG # 0.03 10e3/ul Normal 0.00-0.03 [facility] Comment on above: Performed By: #### C BC #### [facility] [address] [place] [address] Dr. Jh Boudreaux IG % 0.4 % Normal 0.0-0.5 [facility] Comment on above: Performed By: #### C BC #### [facility] [address] [place] [address] Dr. Jh Boudreaux LYMPH # 1.4 103/ul Normal 1.2-3.8 [facility] Comment on above: Performed By: #### C BC #### [facility] [address] [place] [address] Dr. Jh Boudreaux Lymphocytes/100 WBC (Bld) 16.9 % Critically low 20.5-60.0 [facility] Comment on above: Performed By: #### C BC #### [facility] [address] [place] [address] Dr. Jh Boudreaux MANUAL DIFF REQ NO Normal [facility] Comment on above: Performed By: #### C BC #### [facility] [address] [place] [address] Dr. Jh Boudreaux MCH (RBC) [Entitic mass] 29.6 pg Normal 25.9-34.0 [facility] Comment on above: Performed By: #### C BC #### [facility] [address] [place] [address] Dr. Jh Boudreaux MCHC (RBC) [Mass/Vol] 34.2 g/dL Normal 29.9-35.2 [facility] Comment on above: Performed By: #### C BC #### [facility] [address] [place] [address] Dr. Jh Boudreaux MCV (RBC) [Entitic vol] 86.6 fL Normal 80.0-94.0 [facility] Comment on above: Performed By: #### C BC #### [facility] [address] [place] [address] Dr. Jh Boudreaux MONO # 0.8 103/ul Normal 0.3-0.8 [facility] Comment on above: Performed By: #### C BC #### [facility] [address] [place] [address] [address] Jh Boudreaux Monocytes/100 WBC (Bld) 10.2 % Normal 1.7-12.0 [facility] Comment on above: Performed By: #### C BC #### [facility] [address] [place] [address] [address] Jh Boudreaux NEUT # 5.6 103/ul Normal 1.4-6.5 [facility] Comment on above: Performed By: #### C BC #### [facility] [address] [place] [address] Dr. Jh Boudreaux Neutrophils/100 WBC (Bld) 67.4 % Normal 43.0-75.0 [facility] Comment on above: Performed By: #### C BC #### [facility] [address] [place] [address] Dr. Jh Boudreaux Platelet mean volume (Bld) [Entitic vol] 9.9 fL Normal 9.5-13.5 [facility] Comment on above: Performed By: #### C BC #### [facility] [address] [place] [address] Dr. Jh Boudreaux PLT 182 103/ul Normal 150-450 [facility] Comment on above: Performed By: #### C BC #### [facility] [address] [place] [address] Dr. Jh Boudreaux RBC 4.49 106/ul Critically low 4.70-6.10 [facility] Comment on above: Performed By: #### C BC #### [facility] [address] [place] [address] Dr. Jh Boudreaux WBC 8.3 103/ul Normal 4.0-11.0 [facility] Comment on above: Performed By: #### C BC #### [facility] [address] [place] [address] Dr. Jh Boudreaux [facility] 02-25 SARS-CoV-2 (COVID-19) RNA PETER+probe Ql (Unsp spec) Not detected Normal NOT DETECTED [facility] Comment on above: Result [...] for this test is supported by the [place] of Health and Human Service's declaration that [...] used). Performed By: #### C VDTB #### [facility] [address] [place] [address] Dr. Jh Boudreaux INFLUENZA A AND B AGon 03-24 [facility] SEE BELOW Normal [facility] Comment on above: Result Comment: Nega tive for Flu A protein angiten. Infection due to Flu A cannot be ruled out. Flu A angiten in the sample may be below the detection limit of the test. Performed By: #### I NFLUAB #### [facility] [address] [place] [address] Dr. [facility] Normal [facility] Comment on above: Result Comment: Nega tive for Flu B protein antigen. Infection due to Flu B cannot be ruled out. Flu B antigen in the sample may be below the detection limit of the test. Performed By: #### I NFLUAB #### [facility] [address] [place] [address] Dr. Jh Boudreaux INFLUENZA A AG Negative Normal NEGATIVE SEE COMMENT [facility] Comment on above: Performed By: #### I NFLUAB #### [facility] [address] [place] [address] Dr. Jh Boudreaux INFLUENZA B AG Negative Normal NEGATIVE SEE COMMENT [facility] Comment on above: Performed By: #### I NFLUAB #### [facility] [address] [place] [address] Dr. Jh Boudreaux POINT OF CARE GLUCOSEon 02-25 Glucose [Mass/Vol] 215 mg/dL Critically high 74-106 [facility] Comment on above: Performed By: #### B DENISE, HSTROPN #### [facility] [address] [place] [address] Dr. Jh Boudreaux PROF CHEM 8 (BAS METB)on Anion gap [Moles/Vol] 12.2 mmol/L Normal [facility] Comment on above: Performed By: #### B DENISE, HSTROPN #### [facility] [address] [place] [address] Dr. Jh Boudreaux Calcium [Mass/Vol] 8.9 mg/dL Normal 8.5-10.1 [facility] Comment on above: Performed By: #### B DENISE, HSTROPN #### [facility] [address] [place] [address] Dr. Jh Boudreaux Chloride [Moles/Vol] 98 mmol/L Normal 98-107 [facility] Comment on above: Performed By: #### B DENISE, HSTROPN #### [facility] [address] [place] [address] Dr. Jh Boudreaux CO2 [Moles/Vol] 27.9 mmol/L Normal 21.0-32.0 [facility] Comment on above: Performed By: #### B MP, HSTROPN #### [facility] [address] [place] [address] Dr. Jh Boudreaux Creatinine [Mass/Vol] 1.24 mg/dL Normal 0.70-1.30 [facility] Comment on above: Performed By: #### B MP, HSTROPN #### [facility] [address] [place] [address] Dr. Jh Boudreaux EGFR-AF DOMINICAN >60 Normal >=60 [facility] Comment on above: Performed By: #### B DENISE, HSTROPN #### [facility] [address] [address] [address] Jh Boudreaux EGFR-NON AF DOMINICAN 57 mL/min/1.73m2 Critically low >=60 [facility] Comment on above: Performed By: #### B MP, HSTROPN #### [facility] [address] [address] [address] Jh Boudreaux Glucose [Mass/Vol] 62 mg/dL Critically low 74-106 [facility] Comment on above: Performed By: #### B MP, HSTROPN #### [facility] [address] [address] [address] Jh Boudreaux Potassium [Moles/Vol] 5.1 mmol/L Normal 3.5-5.1 [facility] Comment on above: Performed By: #### B MP, HSTROPN #### [facility] [address] [address] [address] Jh Boudreaux Sodium [Moles/Vol] 133 mmol/L Critically low 136-145 [facility] Comment on above: Performed By: #### B MP, HSTROPN #### [facility] [address] [address] [address] Jh Boudreaux Urea nitrogen [Mass/Vol] 23.0 mg/dL Critically high 7.0-18.0 [facility] Comment on above: Performed By: #### B MP, HSTROPN #### [facility] [address] [address] [address] Jh Boudreaux Urea nitrogen/Creatinine [Mass ratio] 18.5 mg/mg Normal [facility] Comment on above: Performed By: #### B MP, HSTROPN #### [facility] [address] [place] [address] Dr. Jh Boudreaux TROPONIN, HIGH SENSITIVITYon 03-24-2022 HSTROP 11.5 pg/mL Normal 4.0-76.1 [facility] Comment on above: Result Comment: CUT- OFF POINTS HAVE BEEN ESTABLISHED BASED ON THE FOURTH UNIVERSAL DEFINITIONS OF MYOCARDIAL INFARCTION. THE UPPER REFERENCE LIMIT (URL) OF TROPONIN, DEFINED THE 99TH PERCENTILE OF cTnI DISTRIBUTION IN A REFERENCE POPULATION, HAS BEEN CONFIRMED THE DECISION THRESHOLD FOR [place] DIAGNOSIS. Performed By: #### B MP, HSTROPN #### [facility] [address] [address] [address] Jh Boudreaux XR CHEST 1 Von [...] IWONA WARNER Date: 2022-03-24 18:37 Normal [facility] CARDIAC ADITHYA 3-6on 2 CK [Catalytic activity/Vol] 32 U/L Critically low 55-170 [facility] Comment on above: Performed By: #### C MREP #### [facility] [address] [place] [address] Dr. Jh Boudreaux CK.MB [Mass/Vol] 1.72 ng/mL Normal <=2.37 [facility] Comment on above: Performed By: #### C MREP #### [facility] [address] [place] [address] Dr. Jh Boudreaux HSTROP 69.6 pg/mL Critically high 4.0-42.2 [facility] Comment on above: Result Comment: CUT- OFF POINTS HAVE BEEN ESTABLISHED BASED ON THE FOURTH UNIVERSAL DEFINITIONS OF MYOCARDIAL INFARCTION. THE UPPER REFERENCE LIMIT (URL) OF TROPONIN, DEFINED THE 99TH PERCENTILE OF cTnI DISTRIBUTION IN A REFERENCE POPULATION, HAS BEEN CONFIRMED THE DECISION THRESHOLD FOR WA DIAGNOSIS. Performed By: #### C MREP #### [facility] [address] [place] [address] Dr. Jh Boudreaux CK [Catalytic activity/Vol] 29 U/L Critically low 55-170 [facility] Comment on above: Performed By: #### C MREP #### [facility] [address] [place] [address] Dr. Jh Boudreaux CK.MB [Mass/Vol] 1.57 ng/mL Normal <=2.37 [facility] Comment on above: Performed By: #### C MREP #### [facility] [address] [place] [address] Dr. Jh Boudreaux HSTROP 39.9 pg/mL Normal 4.0-42.2 [facility] Comment on above: Result Comment: CUT- OFF POINTS HAVE BEEN ESTABLISHED BASED ON THE FOURTH UNIVERSAL DEFINITIONS OF MYOCARDIAL INFARCTION. THE UPPER REFERENCE LIMIT (URL) OF TROPONIN, DEFINED THE 99TH PERCENTILE OF cTnI DISTRIBUTION IN A REFERENCE POPULATION, HAS BEEN CONFIRMED THE DECISION THRESHOLD FOR WA DIAGNOSIS. Performed By: #### C MREP #### [facility] [address] [place] [address] Dr. Jh Boudreaux CARDIAC ADITHYA ADMITon 022 CK [Catalytic activity/Vol] 32 U/L Critically low 55-170 [facility] Comment on above: Performed By: #### B DENISE, HSTROPN #### [facility] [address] [place] [address] Dr. Jh Boudreaux CK.MB [Mass/Vol] 1.15 ng/mL Normal <=2.37 [facility] Comment on above: Performed By: #### B DENISE, HSTROPN #### [facility] [address] [place] [address] Dr. Jh Boudreaux HSTROP 11.9 pg/mL Normal 4.0-42.2 [facility] Comment on above: Result Comment: CUT- OFF POINTS HAVE BEEN ESTABLISHED BASED ON THE FOURTH UNIVERSAL DEFINITIONS OF MYOCARDIAL INFARCTION. THE UPPER REFERENCE LIMIT (URL) OF TROPONIN, DEFINED THE 99TH PERCENTILE OF cTnI DISTRIBUTION IN A REFERENCE POPULATION, HAS BEEN CONFIRMED THE DECISION THRESHOLD FOR WA DIAGNOSIS. Performed By: #### B MP, HSTROPN #### [facility] [address] [place] [address] Dr. Jh Boudreaux GENA 25.0 ng/mL Normal <=121.0 [facility] Comment on above: Performed By: #### B MP, HSTROPN #### [facility] [address] [address] [address] Jh Boudreaux CBC AUTO DIFFon 05-19-2021 BASO # 0.0 103/ul Normal 0.0-0.1 [facility] Comment on above: Performed By: #### C BC #### [facility] [address] [address] [address] Jh Boudreaux Basophils/100 WBC (Bld) 0.3 % Normal 0.2-2.0 [facility] Comment on above: Performed By: #### C BC #### [facility] [address] [address] [address] Jh Boudreaux EO # 0.2 103/ul Normal 0.0-0.7 [facility] Comment on above: Performed By: #### C BC #### [facility] [address] [place] [address] Dr. Jh Boudreaux Eosinophils/100 WBC (Bld) 2.0 % Normal 0.9-7.0 [facility] Comment on above: Performed By: #### C BC #### [facility] [address] [place] [address] Dr. Jh Boudreaux Erythrocyte distribution width (RBC) [Ratio] 12.2 % Normal 11.0-15.0 [facility] Comment on above: Performed By: #### C BC #### [facility] [address] [place] [address] Dr. Jh Boudreaux Hematocrit (Bld) [Volume fraction] 33.7 % Critically low 42.0-54.0 [facility] Comment on above: Performed By: #### C BC #### [facility] [address] [place] [address] Dr. Jh Boudreaux Hemoglobin (Bld) [Mass/Vol] 11.8 g/dL Critically low 14.0-18.0 [facility] Comment on above: Performed By: #### C BC #### [facility] [address] [place] [address] Dr. Jh Boudreaux IG # 0.04 10e3/ul Critically high 0.00-0.03 [facility] Comment on above: Performed By: #### C BC #### [facility] [address] [place] [address] Dr. Jh Boudreaux IG % 0.5 % Normal 0.0-0.5 [facility] Comment on above: Performed By: #### C BC #### [facility] [address] [place] [address] Dr. Jh Boudreaux LYMPH # 1.2 103/ul Normal 1.2-3.8 [facility] Comment on above: Performed By: #### C BC #### [facility] [address] [place] [address] Dr. Jh Boudreaux Lymphocytes/100 WBC (Bld) 15.3 % Critically low 20.5-60.0 [facility] Comment on above: Performed By: #### C BC #### [facility] [address] [place] [address] Dr. Jh Boudreaux MANUAL DIFF REQ NO Normal [facility] Comment on above: Performed By: #### C BC #### [facility] [address] [place] [address] Dr. Jh Boudreaux MCH (RBC) [Entitic mass] 31.6 pg Normal 25.9-34.0 [facility] Comment on above: Performed By: #### C BC #### [facility] [address] [place] [address] Dr. Jh Boudreaux MCHC (RBC) [Mass/Vol] 35.0 g/dL Normal 29.9-35.2 [facility] Comment on above: Performed By: #### C BC #### [facility] [address] [place] [address] Dr. Jh Boudreaux MCV (RBC) [Entitic vol] 90.1 fL Normal 80.0-94.0 [facility] Comment on above: Performed By: #### C BC #### [facility] [address] [place] [address] Dr. Jh Boudreaux MONO # 0.5 103/ul Normal 0.3-0.8 [facility] Comment on above: Performed By: #### C BC #### [facility] [address] [address] [address] Jh Boudreaux Monocytes/100 WBC (Bld) 6.3 % Normal 1.7-12.0 [facility] Comment on above: Performed By: #### C BC #### [facility] [address] [address] [address] Jh Boudreaux NEUT # 5.9 103/ul Normal 1.4-6.5 [facility] Comment on above: Performed By: #### C BC #### [facility] [address] [address] [address] Jh Boudreaux Neutrophils/100 WBC (Bld) 75.6 % Critically high 43.0-75.0 [facility] Comment on above: Performed By: #### C BC #### [facility] [address] [place] [address] Dr. Jh Boudreaux Platelet mean volume (Bld) [Entitic vol] 9.0 fL Critically low 9.5-13.5 [facility] Comment on above: Performed By: #### C BC #### [facility] [address] [address] [address] Jh Boudreaux PLT 164 103/ul Normal 150-450 [facility] Comment on above: Performed By: #### C BC #### [facility] [address] [place] [address] Dr. Jh Boudreaux RBC 3.74 106/ul Critically low 4.70-6.10 [facility] Comment on above: Performed By: #### C BC #### [facility] [address] [place] [address] Dr. Jh Boudreaux WBC 7.8 103/ul Normal 4.0-11.0 [facility] Comment on above: Performed By: #### C BC #### [facility] [address] [place], [place] [id number] Dr. Jh Boudreaux CT HEAD WO CONon [...] DELVIS LUND Date: 2021-05-19 04:40 Normal [facility] Covid-19 PCR (CVDTBH)on 04-27 SARS-CoV-2 (COVID-19) RNA PETER+probe Ql (Unsp spec) Not detected Normal NOT DETECTED [facility] Comment on above: Result Comment: When diagnostic testing is negative, the possibility of a false negative should be considered in the context of a patient's recent exposures and the presence of clinical signs and symptoms consistent with SARS-CoV-2. This test is not yet approved or cleared by the [place] Food and Drug Administration (FDA). This test was developed by [employer], [place], [place]. The performance characteristics of this test were validated by [facility]. The results are not intended to be used as the sole means for clinical diagnosis or patient management decisions. [facility] is authorized under Clinical Laboratory [...] for this test is supported by the [employer] Tender of Health and Human Service's declaration that [...] Performed By: #### B , HSTROPN #### [facility] [address] [address] [address] Jh Boudreaux MRI BRAIN WO CONon [...] AUNDREA ADAM Date: 2021-05-19 12:42 Normal [facility] POINT OF CARE GLUCOSEon - Glucose [Mass/Vol] 76 mg/dL Normal 74-106 [facility] Comment on above: Performed By: #### B DENISE, HSTROPN #### [facility] [address] [address] [address] Jh Boudreaux Glucose [Mass/Vol] 217 mg/dL Critically high 74-106 [facility] Comment on above: Performed By: #### C MREP #### [facility] [address] [place] [address] Dr. Jh Boudreaux PROF CHEM 8 (BAS METB)on Anion gap [Moles/Vol] 11.9 mmol/L Normal [facility] Comment on above: Performed By: #### B DENISE, HSTROPN #### [facility] [address] [place] [address] Dr. Jh Boudreaux Calcium [Mass/Vol] 8.7 mg/dL Normal 8.4-10.2 [facility] Comment on above: Performed By: #### B DENISE HSTROPN #### [facility] [address] [place] [address] Dr. Jh Boudreaux Chloride [Moles/Vol] 101 mmol/L Normal 98-107 [facility] Comment on above: Performed By: #### B DENISE, HSTROPN #### [facility] [address] [place] [address] Dr. Jh Boudreaux CO2 [Moles/Vol] 25.4 mmol/L Normal 22.0-30.0 [facility] Comment on above: Performed By: #### B DENISE, HSTROPN #### [facility] [address] [place] [address] Dr. Jh Boudreaux Creatinine [Mass/Vol] 1.11 mg/dL Normal 0.66-1.25 [facility] Comment on above: Performed By: #### B DENISE, HSTROPN #### [facility] [address] [place] [address] Dr. Jh Boudreaux EGFR-AF DOMINICAN >60 Normal >=60 [facility] Comment on above: Performed By: #### B DENISE, HSTROPN #### [facility] [address] [place] [address] Dr. Jh Boudreaux EGFR-NON AF DOMINICAN >60 Normal >=60 [facility] Comment on above: Performed By: #### B DENISE, HSTROPN #### [facility] [address] [address] [address] Jh Boudreaux Glucose [Mass/Vol] 214 mg/dL Critically high 74-106 [facility] Comment on above: Performed By: #### B DENISE, HSTROPN #### [facility] [address] [address] [address] Jh Boudreaux Potassium [Moles/Vol] 4.3 mmol/L Normal 3.4-5.0 [facility] Comment on above: Performed By: #### B DENISE, HSTROPN #### [facility] [address] [place] [address] Dr. Jh Boudreaux Sodium [Moles/Vol] 134 mmol/L Critically low 137-145 Th [facility] Comment on above: Performed By: #### B DENISE HSTROPN #### [facility] [address] [place] [address] Dr. Jh Boudreaux Urea nitrogen [Mass/Vol] 23.0 mg/dL Critically high 9.0-20.0 [facility] Comment on above: Performed By: #### Elsi WALKER, HSTROPN #### [facility] [address] [place] [address] Dr. Jh Boudreaux Urea nitrogen/Creatinine [Mass ratio] 20.7 mg/mg Normal [facility] Comment on above: Performed By: #### B DENISE HSTROPN #### [facility] [address] [place] [address] Dr. Jh Boudreaux XR FOREIGN BODY EYEon 2021 XR FOREIGN BODY EYE EXAMINATION: XR FOREIGN BODY EYE HISTORY: vertigo COMPARISON: No relevant comparison available. FINDINGS: ORBITS: Negative for a metallic foreign body. OTHER: Negative. IMPRESSION: 1. No metallic foreign body within the orbits. Electronically authenticated by: CJ MESSINA Date: 2021-05-19 11:55 Normal [facility] XR CHEST 1 Von 05-04-2021 XR CHEST 1 V This study was read during a downtime in the [employer] PACS system. The actual time dictated and [...] CJ MESSINA Date: 2021-05-04 16:13 Normal [facility] BNPon 05-03-2021 Natriuretic peptide B (Bld) [Mass/Vol] 1093.0 pg/mL Critically high <=900.0 [facility] Comment on above: Performed By: #### C MP, CMADM, BNP #### [facility] [address] [address] [address] Jh Boudreaux CARDIAC ADITHYA ADMITon 022 CK [Catalytic activity/Vol] 42 U/L Critically low 55-170 [facility] Comment on above: Performed By: #### C MP, CMADM, BNP #### [facility] [address] [address] [address] Jh Boudreaux CK.MB [Mass/Vol] 1.12 ng/mL Normal <=2.37 [facility] Comment on above: Performed By: #### C MP, CMADM, BNP #### [facility] [address] [address] [address] Jh Boudreaux HSTROP 13.3 pg/mL Normal 4.0-42.2 [facility] Comment on above: Result Comment: CUT- OFF POINTS HAVE BEEN ESTABLISHED BASED ON THE FOURTH UNIVERSAL DEFINITIONS OF MYOCARDIAL INFARCTION. THE UPPER REFERENCE LIMIT (URL) OF TROPONIN, DEFINED THE 99TH PERCENTILE OF cTnI DISTRIBUTION IN A REFERENCE POPULATION, HAS BEEN CONFIRMED THE DECISION THRESHOLD FOR WA DIAGNOSIS. Performed By: #### C MP, CMADM, BNP #### [facility] [address] [place] [address] Dr. Jh Boudreaux GENA 38.0 ng/mL Normal <=121.0 [facility] Comment on above: Performed By: #### C MP, CMADM, BNP #### [facility] [address] [place] [address] Dr. Jh Boudreaux CBC AUTO DIFFon 05-03-2021 BASO # 0.0 103/ul Normal 0.0-0.1 [facility] Comment on above: Performed By: #### C MREP #### [facility] [address] [place] [address] Dr. Jh Boudreaux Basophils/100 WBC (Bld) 0.2 % Normal 0.2-2.0 [facility] Comment on above: Performed By: #### C MREP #### [facility] [address] [place] [address] Dr. Jh Boudreaux EO # 0.2 103/ul Normal 0.0-0.7 [facility] Comment on above: Performed By: #### C MREP #### [facility] [address] [place] [address] Dr. Jh Boudreaux Eosinophils/100 WBC (Bld) 2.0 % Normal 0.9-7.0 [facility] Comment on above: Performed By: #### C MREP #### [facility] [address] [place] [address] Dr. Jh Boudreaux Erythrocyte distribution width (RBC) [Ratio] 12.4 % Normal 11.0-15.0 [facility] Comment on above: Performed By: #### C MREP #### [facility] [address] [place] [address] Dr. Jh Boudreaux Hematocrit (Bld) [Volume fraction] 37.6 % Critically low 42.0-54.0 [facility] Comment on above: Performed By: #### C MREP #### [facility] [address] [place] [address] Dr. Jh Boudreaux Hemoglobin (Bld) [Mass/Vol] 13.0 g/dL Critically low 14.0-18.0 [facility] Comment on above: Performed By: #### C MREP #### [facility] [address] [address] [address] Jh Boudreaux IG # 0.04 10e3/ul Critically high 0.00-0.03 [facility] Comment on above: Performed By: #### C MREP #### [facility] [address] [place] [address] Dr. Jh Boudreaux IG % 0.5 % Normal 0.0-0.5 [facility] Comment on above: Performed By: #### C MREP #### [facility] [address] [place] [address] Dr. Jh Boudreaux LYMPH # 1.3 103/ul Normal 1.2-3.8 [facility] Comment on above: Performed By: #### C MREP #### [facility] [address] [place] [address] Dr. Jh Boudreaux Lymphocytes/100 WBC (Bld) 14.5 % Critically low 20.5-60.0 [facility] Comment on above: Performed By: #### C MREP #### [facility] [address] [place] [address] Dr. Jh Boudreaux MANUAL DIFF REQ NO Normal [facility] Comment on above: Performed By: #### C MREP #### [facility] [address] [place] [address] Dr. Jh Boudreaux MCH (RBC) [Entitic mass] 30.8 pg Normal 25.9-34.0 [facility] Comment on above: Performed By: #### C MREP #### [facility] [address] [place] [address] Dr. Jh Boudreaux MCHC (RBC) [Mass/Vol] 34.6 g/dL Normal 29.9-35.2 [facility] Comment on above: Performed By: #### C MREP #### [facility] [address] [place] [address] Dr. Jh Boudreaux MCV (RBC) [Entitic vol] 89.1 fL Normal 80.0-94.0 [facility] Comment on above: Performed By: #### C MREP #### [facility] [address] [place] [address] Dr. Jh Boudreaux MONO # 0.7 103/ul Normal 0.3-0.8 [facility] Comment on above: Performed By: #### C MREP #### [facility] [address] [place] [address] Dr. Jh Boudreaux Monocytes/100 WBC (Bld) 7.8 % Normal 1.7-12.0 [facility] Comment on above: Performed By: #### C MREP #### [facility] [address] [place] [address] Dr. Jh Boudreaux NEUT # 6.5 103/ul Normal 1.4-6.5 [facility] Comment on above: Performed By: #### C MREP #### [facility] [address] [place] [address] Dr. Jh Boudreaux Neutrophils/100 WBC (Bld) 75.0 % Normal 43.0-75.0 [facility] Comment on above: Performed By: #### C MREP #### [facility] [address] [place] [address] Dr. Jh Boudreaux Platelet mean volume (Bld) [Entitic vol] 9.5 fL Normal 9.5-13.5 [facility] Comment on above: Performed By: #### C MREP #### [facility] [address] [place] [address] Dr. Jh Boudreaux PLT 240 103/ul Normal 150-450 [facility] Comment on above: Performed By: #### C MREP #### [facility] [address] [place] [address] Dr. Jh Boudreaux RBC 4.22 106/ul Critically low 4.70-6.10 [facility] Comment on above: Performed By: #### C MREP #### [facility] [address] [place] [address] Dr. Jh Boudreaux WBC 8.6 103/ul Normal 4.0-11.0 [facility] Comment on above: Performed By: #### C MREP #### [facility] [address] [place] [address] Dr. Jh Boudreaux CULTURE BLOODon 05-03-2021 Microscopic examination of blood, culture Culture Observations: NO GROWTH AT 5 DAYS. Normal [facility] Comment on above: Performed By: #### B MP, HSTROPN #### [facility] [address] [place] [address] Dr. Jh Boudreaux Microscopic examination of blood, culture Culture Observations: NO GROWTH AT 5 DAYS. Normal [facility] Comment on above: Performed By: #### B MP, HSTROPN #### [facility] [address] [place] [address] Dr. Jh Boudreaux Covid-19 PCR (CVDTBH)on SARS-CoV-2 (COVID-19) RNA PETER+probe Ql (Unsp spec) Not detected Normal NOT DETECTED [facility] Comment on above: Result Comment: When diagnostic testing is negative, the possibility of a false negative should be considered in the context of a patient's recent exposures and the presence of clinical signs and symptoms consistent with SARS-CoV-2. This test is not yet approved or cleared by the [place] Food and Drug Administration (FDA). This test was developed by [employer], [place], [place]. The performance characteristics of this test were validated by [facility]. The results are not intended to be used as the sole means for clinical diagnosis or patient management decisions. [facility] is authorized under Clinical Laboratory [...] for this test is supported by the [place] of Health and Human Service's declaration that [...] used). Performed By: #### C MREP #### [facility] [address] [place] [address] Dr. Jh Boudreaux LACTATE/LACTIC ACIDon 2021 Lactate [Moles/Vol] 1.8 mmol/L Normal 0.7-2.0 [facility] Comment on above: Performed By: #### C MREP #### [facility] [address] [place] [address] Dr. Jh Boudreaux PROF 14(COMP METB)on 022 Albumin [Mass/Vol] 3.8 g/dL Normal 3.5-5.0 [facility] Comment on above: Performed By: #### C MP, CMADM, BNP #### [facility] [address] [place] [address] Dr. Jh Boudreaux Albumin/Globulin [Mass ratio] 1.2 {ratio} Normal [facility] Comment on above: Performed By: #### C MP, CMADM, BNP #### [facility] [address] [place] [address] Dr. Jh Boudreaux ALP [Catalytic activity/Vol] 78 U/L Normal 38-126 [facility] Comment on above: Performed By: #### C MP, CMADM, BNP #### [facility] [address] [place] [address] Dr. Jh Boudreaux ALT [Catalytic activity/Vol] 20 U/L Critically low 21-72 [facility] Comment on above: Performed By: #### C MP, CMADM, BNP #### [facility] [address] [place] [address] Dr. Jh Boudreaux Anion gap [Moles/Vol] 13.5 mmol/L Normal [facility] Comment on above: Performed By: #### C MP, CMADM, BNP #### [facility] [address] [address] [address] Jh Boudreaux AST [Catalytic activity/Vol] 19 U/L Normal 17-59 [facility] Comment on above: Performed By: #### C MP, CMADM, BNP #### [facility] [address] [place] [address] Dr. Jh Boudreaux Bilirubin [Mass/Vol] 0.8 mg/dL Normal 0.2-1.3 [facility] Comment on above: Performed By: #### C MP, CMADM, BNP #### [facility] [address] [address] [address] Jh Boudreaux Calcium [Mass/Vol] 9.2 mg/dL Normal 8.4-10.2 [facility] Comment on above: Performed By: #### C MP, CMADM, BNP #### [facility] [address] [place] [address] Dr. Jh Boudreaux Chloride [Moles/Vol] 96 mmol/L Critically low 98-107 [facility] Comment on above: Performed By: #### C MP, CMADM, BNP #### [facility] [address] [place] [address] Dr. Jh Boudreaux CO2 [Moles/Vol] 26.2 mmol/L Normal 22.0-30.0 [facility] Comment on above: Performed By: #### C MP, CMADM, BNP #### [facility] [address] [address] [address] Jh Boudreaux Creatinine [Mass/Vol] 0.91 mg/dL Normal 0.66-1.25 [facility] Comment on above: Performed By: #### C MP, CMADM, BNP #### [facility] [address] [place] [address] Dr. Jh Boudreaux EGFR-AF DOMINICAN >60 Normal >=60 [facility] Comment on above: Performed By: #### C MP, CMADM, BNP #### [facility] [address] [place] [address] Dr. Jh Boudreaux EGFR-NON AF DOMINICAN >60 Normal >=60 [facility] Comment on above: Performed By: #### C MP, CMADM, BNP #### [facility] [address] [place] [address] Dr. Jh Boudreaux Globulin (S) [Mass/Vol] 3.3 g/dL Normal [facility] Comment on above: Performed By: #### C MP, CMADM, BNP #### [facility] [address] [place] [address] Dr. Jh Boudreaux Glucose [Mass/Vol] 116 mg/dL Critically high 74-106 [facility] Comment on above: Performed By: #### C MP, CMADM, BNP #### [facility] [address] [place] [address] Dr. Jh Boudreaux Potassium [Moles/Vol] 4.7 mmol/L Normal 3.4-5.0 [facility] Comment on above: Performed By: #### C MP, CMADM, BNP #### [facility] [address] [place] [address] Dr. Jh Boudreaux Protein [Mass/Vol] 7.1 g/dL Normal 6.1-8.2 [facility] Comment on above: Performed By: #### C MP, CMADM, BNP #### [facility] [address] [place] [address] Dr. Jh Boudreaux Sodium [Moles/Vol] 131 mmol/L Critically low 137-145 [facility] Comment on above: Performed By: #### C MP, CMADM, BNP #### [facility] [address] [place] [address] Dr. Jh Boudreaux Urea nitrogen [Mass/Vol] 16.0 mg/dL Normal 9.0-20.0 [facility] Comment on above: Performed By: #### C MP, CMADM, BNP #### [facility] [address] [place] [address] Dr. Jh Boudreaux Urea nitrogen/Creatinine [Mass ratio] 17.6 mg/mg Normal [facility] Comment on above: Performed By: #### C MP, CMADM, BNP #### [facility] [address] [place] [address] Dr. Jh Boudreaux PROTIMEon 05-03-2021 INR Coag (PPP) [Relative time] 1.01 {INR} Normal [facility] Comment on above: Performed By: #### C MREP #### [facility] [address] [place] [address] Dr. Jh Boudreaux INR GUIDELINES SEE BELOW Normal [facility] Comment on above: Result Comment: NADIRA RED INR: 2.0 - 3.0 CONDITIONS NOT LISTED BELOW 2.5 - 3.5 FOR PROSTHETIC HEART VALVE REPLACEMENT 2.5 - 3.5 RECURRENT THROMBOSIS Performed By: #### C MREP #### [facility] [address] [place] [address] Dr. Jh Boudreaux PT Coag (PPP) [Time] 10.9 s Normal 9.0-11.6 [facility] Comment on above: Performed By: #### C MREP #### [facility] [address] [place] [address] Dr. Jh Boudreaux PTTon 05-03-2021 aPTT Coag (Bld) [Time] 27.1 s Normal 22.3-36.2 [facility] Comment on above: Performed By: #### C MREP #### [facility] [address] [place] [address] Dr. Jh Boudreaux Vital Signs Date Time Vital Sign Value Performing Clinician Faci lity 11-25-2024 10:32-0400 Body height 167.6 cm Alda Shea MD Work Phone: [facility] 11-25-2024 10:32-0400 Body mass index (BMI) [Ratio] 15.82 kg/m2 Alda Shea MD Work Phone: [facility] 11-25-2024 10:32-0400 Body weight 44.45 kg Alda Shea MD Work Phone: [facility] 11-25-2024 10:32-0400 Diastolic blood pressure 70 mm[Hg] Alda Shea MD Work Phone: [facility] 09-02-2025 10:32-0400 Heart rate 66 /min Alda Shea MD Work Phone: [facility] 11-25-2024 10:32-0400 SaO2% (BldA) [Mass fraction] 98 % Alda Shea MD Work Phone: [facility] 11-25-2024 10:32-0400 Systolic blood pressure 110 mm[Hg] Alda Shea MD Work Phone: [facility] 08-04-2024 13:07-0400 Body height 167.6 cm Alda Shea MD Work Phone: [facility] 08-04-2024 13:07-0400 Body mass index (BMI) [Ratio] 15.66 kg/m2 Alda Shea MD Work Phone: [facility] 08-04-2024 13:07-0400 Body weight 44 kg Alda Shea MD Work Phone: [facility] 08-04-2024 13:07-0400 Diastolic blood pressure 68 mm[Hg] Alda Shea MD Work Phone: [facility] 08-04-2024 13:07-0400 Heart rate 93 /min Alda Shea MD Work Phone: [facility] 08-04-2024 13:07-0400 SaO2% (BldA) [Mass fraction] 99 % Alda Shea MD Work Phone: [facility] 08-04-2024 13:07-0400 Systolic blood pressure 112 mm[Hg] Alda Shea MD Work Phone: [facility] 02-05-2024 13:39-0500 Body height 167.6 cm Alda Shea MD Work Phone: [facility] 02-05-2024 13:39-0500 Body mass index (BMI) [Ratio] 16.62 kg/m2 Alda Shea MD Work Phone: [facility] 02-05-2024 13:39-0500 Body weight 46.72 kg Alda Shea MD Work Phone: [facility] 02-05-2024 13:39-0500 Diastolic blood pressure 78 mm[Hg] Alda Shea MD Work Phone: [facility] 02-05-2024 13:39-0500 Systolic blood pressure 104 mm[Hg] Alda Shea MD Work Phone: [facility] Encounters Encounter Date Encounter Type Care Provider Facility Start: 11-25-2024 End: 11-25-2024 Office outpatient visit 25 minutes Alda Shea MD Work Phone: [facility] Comment on above: Inguinal hernia of l [...] hemosiderin, quant Alda Shea MD Work Phone: [facility] Start: 08-04-2024 End: 08-04-2024 Patient encounter procedure Alda Shea MD Work Phone: [facility] Comment on above: Routine general medi bo examination at health care facility (Primary Dx); Type 2 diabetes mellitus without complication, unspecified whether shelter insulin use; Type 2 diabetes mellitus with stage 3a chronic kidney disease, with long-term current use of insulin (HCC) ([facility]); Chronic obstructive pulmonary disease, unspecified; Unintentional [...] encounter procedure Alda Shea MD Work Phone: [facility] Start: 04-29-2023 Chart abstracting Alda Shea MD Work Phone: [facility] Start: 03-24-2022 End: 03-24-[address] ALDA SHEA Facility:[facility] Start: 05-19-2021 End: 05-19-[address] ALDA SHEA Facility:[facility] Start: 05-03-2021 End: 05-03-[address] ALDA SHEA Facility:[facility] Start: 10-15-2017 End: 10-15-2017 Patient encounter ROSA MARIA DIAZ [facility] Procedures Date Procedure Procedure Detail [...] Annual Wellness (AWV) Medicare Annual Wellness (AWV) [facility] Start: 07-25-2025 Urine screening for protein Diabetes: Urine Protein Screening [facility] Start: 11-25-2024 End: 11-25-2025 PSA, total and free PSA, total and free Lab Routine Elevated PSA Expected: 11/25/2024 (Approximate), Expires: 11/25/2025 [facility] Work Phone: Comment on above: Expected: 11/25/2024 (Approximate), Expires: 11/25/2025 Start: 11-24-2024 Influenza vaccination Influenza Vacc ine (#1) [facility] Start: 10-25-2024 Hemoglobin A1c measurement Diabetes: Hemoglobin A1C [facility] Start: 08-04-2024 End: 08-04-2024 Patient encounter procedure [facility] Comment on above: Arrived Start: 07-08-2024 Urine screening for protein Diabetes: Urine Protein Screening [facility] Start: 06-13-2024 Medicare Annual Wellness (AWV) Medicare Annual Wellness (AWV) [facility] Start: 05-07-2024 Hemoglobin A1c measurement Diabetes: Hemoglobin A1C [facility] Start: 02-13-2024 Screening for malign ant neoplasm of colon [facility] Start: 02-05-2024 End: 02-04-2025 Noninvasive colorectal cancer DNA and occult blood screening [Presence] in Stool Cologuard colon cancer screening Lab Routine Screening for colon cancer Expected: 02/05/2024 (Approximate), Expires: 02/04/2025 [facility] Work Phone: Comment on above: Expected: 02/05/2024 (Approximate), Expires: 02/04/2025 Start: 05-22-2023 End: 05-22-2023 Patient encounter procedure 05/22/2023 1:00 PM EST Office Visit [facility] [address] [facility] [address] [place] [id number] Alda Shea MD [address] [facility] [address] [place] [address] [facility] Start: 04-30-2023 End: 04-30-2023 Patient encounter procedure 04/30/2023 11:15 AM EST Office Visit [facility] [address] [facility] [address] [place] [phone] Alda Shea MD [address] [address] [facility] Start: 02-20-2023 Hemoglobin A1c measurement Diabetes: Hemoglobin A1C [facility] Start: 09-17-2020 Glaucoma screening Diabetes: R etinopathy Screening [facility] Start: 1950 Medicare Annual Wellness (AWV) Medicare Annual Wellness (AWV) [facility] Start: 1950 Screening for malign ant neoplasm of colon [facility] Immunizations Immunization Date Immunization Notes Care Provider Fa cility 02-05-2024 Influenza, High-dose Seasonal, Quadrivalent, Preservative Free Alda Shea MD Work Phone: [facility] 02-05-2024 influenza virus vacc ine, unspecified formulation Alda Shea MD Work Phone: [facility] 02-06-2023 Influenza, High-dose Seasonal, Quadrivalent, Preservative Free Alda Shea MD Work Phone: [facility] 02-02-2022 influenza, high dose seasonal, preservative-free Alda Shea MD Work Phone: [facility] 03-09-2021 Influenza, High-dose Seasonal, Quadrivalent, Preservative Free Alda Shea MD Work Phone: [facility] 01-07-2020 Seasonal, quadrivale nt, recombinant, injectable influenza vaccine, preservative free Alda Shea MD Work Phone: [facility] 02-06-2019 Influenza, High-dose Seasonal, Quadrivalent, Preservative Free Alda Shea MD Work Phone: [facility] 02-01-2018 Influenza, High-dose Seasonal, Quadrivalent, Preservative Free Alda Shea MD Work Phone: [facility] 01-11-2017 pneumococcal polysaccharide vaccine, 23 valent Alda Shea MD Work Phone: [facility] 12-28-2016 Influenza, High-dose Seasonal, Quadrivalent, Preservative Free Alda Shea MD Work Phone: [facility] 08-02-2015 pneumococcal conjuga te vaccine, 13 valent Alda Seha MD Work Phone: [facility] 07-30-2015 pneumococcal conjuga te vaccine, 13 valent Alda Shea MD Work Phone: [facility] 07-30-2015 zoster vaccine, live Alda kinney MD Work Phone: [facility] 12-11-2012 tetanus and diphther ia toxoids, adsorbed, preservative free, for adult use (2 Lf of tetanus toxoid and 2 Lf of diphtheria toxoid) Alda Shea MD Work Phone: [facility] 12-29-2011 influenza, seasonal, injectable, preservative free Alda Shea MD Work Phone: [facility] Payers Date Payer Category Payer Medicare (Managed Care) [facility] [id number] 2024 Medicare [id number] 2017 Medicare [id number] 2014 Unknown [id number] 1959 Medicare [id number] 1948 Unknown [id number] 1948 Unknown [id number] 1948 Unknown [id number] 1948 Unknown [id number] 1948 Unknown [id number] 1948 Unknown [id number] Social History Date Type Detail Facility Start: 01-04-2023 Tobacco smoking status ORIS Smokes t obacco daily [facility] History [...] Health Quest ionnaire 2 item (PHQ-2) [Reported] [facility] 08-04-2024 Patient Health Quest ionnaire 2 item (PHQ-2) [Reported] [facility] History of Present illness Narrative 11-25-2024 [...] Patient says he has poor cell phone date night caregiver and does not get phone calls Associated [...] tablet Chew 81 mg 1 (one) time. Thfmfsn-Hzbhyrcaavz-Lxqrulmqzp (Breztri Aerosphere) 160-9-4.8 MCG/ACT aerosol Inhale 2 puffs every 12 (twelve) hours. carvedilol (Coreg) 6.25 MG tablet Take 1 tablet (6.25 mg) by mouth in the morning and 1 tablet (6.25 mg) before bedtime. 200 tablet 3 Drug Mobile Unifine Pentips 31G X 6 MM mis [...] elsewhere classified COPD (chronic obstructive pulmonary disease) ([facility]) Cough COVID 03/26/2021 Positive Non immunized Diabetes mellitus ([facility]) Dyspnea Esophageal reflux Essential hypertension, benign [...] 1999 :Diabetes mellitus, type 2 without comp. [place] [facility] 2011 Procedure:CXR -GPKZULTFUJ-H-LYV-KAMALAMAIKEL HAJI;Disease:[id number] Visit Vitals Smoking Status Every Day Review [...] tablet Chew 81 mg 1 (one) time. Jqxkkaw-Hujgsylzrph-Vrwscallae (Breztri Aerosphere) 160-9-4.8 MCG/ACT aerosol Inhale 2 puffs every 12 (twelve) hours. carvedilol (Coreg) 6.25 MG tablet Take 1 tablet (6.25 mg) by mouth in the morning and 1 tablet (6.25 mg) before bedtime. 200 tablet 3 Drug Mobile Unifine Pentips 31G X 6 MM misc [...] Do you have a medical power of ip technology transactions attorney?: No Objective : BP 112/68 Pulse [...] with long-term current use of insulin (HCC) ([facility]/HCC) No Tobacco use Follow ADA 1800 diet [...] smoked daily. Discussed potential health risks of shelter smoking. Patient voiced understanding. Benefits of cessation, both health and financial, were reviewed. Associated Problem(s): Type 2 diabetes mellitus with stage 3a chronic kidney disease, with long-term current use of insulin ([facility]) ([facility]) No Tobacco use Follow ADA 1800 [...] Associated Problem(s): Hypertension due to endocrine disorder ([facility]) Our specific goals, for your hypertension, [...] tablet Chew 81 mg 1 (one) time. Jfvcmfd-Lwmdcxnugkl-Khzrkbxnnm (Breztri Aerosphere) 160-9-4.8 MCG/ACT aerosol Inhale 2 puffs every 12 (twelve) hours. carvedilol (Coreg) 6.25 MG tablet Take 1 tablet (6.25 mg) by mouth in the morning and 1 tablet (6.25 mg) before bedtime. 200 tablet 3 Continuous Blood Gluc Legal Administrator (YurpyStyle Solange 2 Ottertail) device 1 Units in the morning and 1 Units at noon and 1 Units in the evening and 1 Units before bedtime. Continuous Blood Gluc Sensor (FreeStyle Solange 2 Sensor) misc 1 Units every 14 (fourteen) days 6 each 3 Drug Mobile Unifine Pentips 31G X 6 MM misc [...] 2000 :Diabetes mellitus, type 2 without comp. [place] [facility] 2011 Procedure:CXR -RQAPUXJSSX-E-FDG-TESSALON ADITHYA;Disease:[id number] Visit Vitals BP 104/78 Ht 5' 6 [...] smoked daily. Discussed potential health risks of shelter smoking. Patient voiced understanding. Benefits of cessation, both health and financial, were reviewed. Hypertension due to endocrine disorder ([facility]) - Primary Our specific goals, for [...] with long-term current use of insulin (HCC) ([facility]) No Tobacco use Follow ADA 1800 [...] Surgery Other Visit Diagnoses Unspecified protein-calorie malnutrition ([facility]/HCC) Immunodeficiency due to conditions classified elsewhere ([facility]) Follow up in about 6 months (around 08/04/2024) for Diabetes. documented in this encounter [facility] 02-05-2024 Addendum Note - Laurie Blevins MA - 02/05/2024 1:30 PM EST Note Date & Type Note Facility 02-05-2024 Miscellaneous Notes Addended by: LAURIE BLEVINS on: 02/05/2024 02:09 PM Modules accepted: Orders documented in this encounter [facility] Clinical Note 02-05-2024 Addendum Note - Laurie Blevins MA - 02/05/2024 1:30 PM EST Note Date & Type Note Facility 02-05-2024 Note Addended by: LAURIE BLEVINS on: 02/05/2024 02:09 PM Modules accepted: Orders [facility] Clinical Note 02-05-2024 Addendum Note - Laurie Blevins MA - 02/05/2024 1:30 PM EST Note Date & Type Note Facility 02-05-2024 Note Addended by: LAURIE BLEVINS on: 02/05/2024 02:09 PM Modules accepted: Orders [facility] Evaluation note Note Date & Type Note Facility Evaluation note Diagnosis Type 2 diabetes mellitus without complication, unspecified whether setter out insulin use ([facility]) Hypertension due to endocrine disorder ([facility]) Otalgia of both ears- Primary Ear [...] 2 diabetes mellitus without complication, unspecified whether setter out insulin use (CMS/HCC) Infrarenal abdominal aortic aneurysm (AAA) without rupture (CMS/HCC) Medicare annual wellness visit, subsequent Type 2 diabetes mellitus with stage 3a chronic kidney disease, with long-term current use of insulin (HCC) (CMS/HCC) Essential hypertension, benign (CMS/HCC)- Primary Essential hypertension, benign Type 2 diabetes mellitus without complication, unspecified whether setter out insulin use (CMS/HCC) Type 2 diabetes mellitus [...] Encounter for vaccination documented in this encounter [facility] Evaluation note Note Date & Type Note Facility Evaluation note Diagnosis Type 2 diabetes mellitus without complication, unspecified whether shelter insulin use Hypertension due to endocrine disorder [...] 2 diabetes mellitus without complication, unspecified whether setter out insulin use Infrarenal abdominal aortic aneurysm (AAA) without rupture ([facility]/HCC) Medicare annual wellness visit, subsequent Type 2 diabetes mellitus with stage 3a chronic kidney disease, with long-term current use of insulin (HCC) (CMS/HCC) Essential hypertension, benign (CMS/HCC)- Primary Essential hypertension, benign Type 2 diabetes mellitus without complication, unspecified whether shelter insulin use Type 2 diabetes mellitus with [...] of insulin (HCC) (CMS/HCC) Unspecified protein-calorie malnutrition ([facility]) Unspecified protein-calorie malnutrition Immunodeficiency due to conditions classified elsewhere ([facility]) Smoker Tobacco use disorder Inguinal hernia of left side without obstruction or gangrene Screening for colon cancer Special screening for malignant neoplasms, colon Encounter for vaccination Routine general medical examination at health care facility- Primary Routine general medical examination at a health care facility Type 2 diabetes mellitus without complication, unspecified whether setter out insulin use Type 2 diabetes mellitus with stage 3a chronic kidney disease, with long-term current use of insulin (HCC) ([facility]) Chronic obstructive pulmonary disease, unspecified Unintentional weight loss of 10% body weight within 6 months Elevated PSA Elevated prostate specific antigen (PSA) Bilateral hearing loss, unspecified hearing loss type documented in this encounter [facility] Evaluation note Note Date & Type Note Facility Evaluation note Diagnosis Type 2 diabetes mellitus without complication, unspecified whether setter out insulin use (HCC) Hypertension due to endocrine [...] 2 diabetes mellitus without complication, unspecified whether shelter insulin use (HCC) Infrarenal abdominal aortic aneurysm (AAA) without rupture Medicare annual wellness visit, subsequent Type 2 diabetes mellitus with stage 3a chronic kidney disease, with long-term current use of insulin (HCC) Essential hypertension, benign- Primary Essential hypertension, benign Type 2 diabetes mellitus without complication, unspecified whether shelter insulin use (HCC) Type 2 diabetes mellitus [...] 2 diabetes mellitus without complication, unspecified whether shelter insulin use (HCC) Type 2 diabetes mellitus [...] DATE CREATED AUTHOR AUTHOR'S ORGANIZ ATION 08/27/2024 [facility] DATE CREATED AUTHOR AUTHOR'S ORGANIZ ATION 11/25/2024 [facility] Care Teams (unrecognized sec tion and content) Technical Report Writer Relationship Specialty Start Date End Date Alda Shea MD [address] [place] [address] PCP - General Family Medicine 09/08/22 Technical Report Writer Relationship Specialty Start Date End Date Alda Shea MD [address] [place] [address] PCP - General Family Medicine 09/08/22 Alda Shea MD [address] [facility] [address] [place] [address] PCP - ACO Reach 05/25/23 Technical Report Writer Relationship Specialty Start Date End Date Alda Shea MD [address] [facility] [address] [place] [address] PCP - General Family Medicine 09/08/22 Technical Report Writer Relationship Specialty Start Date End Date Alda Shea MD [address] [facility] [address] [place] [address] PCP - General Family Medicine 09/08/22 Technical Report Writer Relationship Specialty Start Date End Date Alda Seha MD [address] [facility] [address] [place] [address] PCP - General Family Medicine 09/08/22 Reason [...] BE BASED ON THE PRIMARY CLINICAL RECORDS. [facility]. provides no warranty or guarantee of the accuracy or completeness of information in this document.
--- OUTSIDE RECORDS SUMMARY | 2024-11-27 00:40 | XMS_ITS | Encounter Summary ---
Author Organization [facility] Address [address] [facility] [place] [address] Care Team Providers Care Back Tender Insulation Board Name Role Phone Alda Osborne MD Primary Care Provider Encounter Details Date Type Department Care Team [...] How often do you attend chur or confucianist services? Never 01/25/2023 Do you belong to any clubs o r organizations such as christian groups, unions, fraternal or athletic groups, or [...] Recorded Patient Health Questionnaire-2 Score 0 11/25/2024 [facility] - Occupational Stress Questionnaire [...] 12/02/2024 10:00 AM EDT Office Visit [facility] [place] [address] [place] [address] Agnieszka Humphreys PA [address] [place] [address] [place] [address] 12/09/2024 11:00 AM EDT Office Visit [facility] [place] [address] [place] [address] Alda Osborne MD [address] [place] [address] [place] [address] documented as of this encounter Visit Diagnoses Not on filedocumented in this encounter Care Teams Back Tender Insulation Board Relationship Specialty Start Date End Date Alda Osborne MD [address] [place] [address] [place] [address] PCP - General Family Medicine 09/08/22 documented as of this encounter
--- OUTSIDE RECORDS SUMMARY | 2024-11-27 00:40 | XMS_ITS | Encounter Summary ---
Author Organization [facility] Address [address] [facility] [place] [address] Care Team Providers Care Deflash And Wash Operator Name Role Phone Alda Osborne MD Primary Care Provider [phone] Alda Osborne MD Unavailable Joan Calvo RN Unavailable [phone] Alda Osborne MD Unavailable Encounter Details Date Type Department Care Team (Late st Contact Info) Description 06/20/2023 Abstract [facility] [place] [facility] [address] [facility] 110 [place] [address] Alda Osborne MD [address] [facility] 110 [place] [address] Social History Tobacco Use Types Packs/Day Years [...] often do you attend chur ch or bahai services? Never 01/25/2023 Do you belong to any clubs o r organizations such as denominational groups, unions, fraternal or athletic groups, or [...] Recorded Patient Health Questionnaire-2 Score 0 06/14/2023 [facility] - [...] [address] [place] [address] Agnieszka Humphreys PA [address] [place] [address] [place] [address] 12/09/2024 11:00 AM EDT Office Visit [facility] [place] [address] [place] [address] Alda Osborne MD [address] [place] [address] [place] [address] documented as of this encounter Visit Diagnoses Not on filedocumented in this encounter Care Teams Deflash And Wash Operator Relationship Specialty Start Date End Date Alda Osborne MD [address] [place] [address] [place] [address] PCP - General Family Medicine 09/08/22 Alda Osborne MD [address] [place] [address] [place], [place] [address] PCP - ACO Reach 05/25/23 05/01/24 Alda Osborne MD [address] [place] [address] [place], [place] [address] PCP - ACO Reach 05/09/24 06/26/24 Joan Calvo, RN [address] [place] [address] Clinical Advocate Family Medicine 05/02/24 05/23/24 documented as of this encounter
--- OUTSIDE RECORDS SUMMARY | 2024-11-27 00:40 | XMS_ITS | Encounter Summary ---
Author Organization [facility] Address [address] [facility] [place] [address] Care Team Providers Care Armored Truck Driver Name Role Phone Alda Osborne MD Primary Care Provider [phone] Alda Osborne MD Unavailable Joan Calvo RN Unavailable [phone] Alda Osborne MD Unavailable Encounter Details Date Type Department Care Team (Late st Contact Info) Description 11/13/2023 Abstract [facility] [place] [facility] [address] [facility] 110 [place] [address] Alda Osborne MD [address] [facility] 110 [place] [address] Social History Tobacco Use Types Packs/Day Years [...] often do you attend chur ch or quaker services? Never 01/25/2023 Do you belong to [...] Recorded Patient Health Questionnaire-2 Score 0 06/14/2023 [facility] - Occupational Stress Questionnaire Answer Date [...] [address] [place] [address] Agnieszka Humphreys PA [address] [place] [address] [place] [address] 12/09/2024 11:00 AM EDT Office Visit [facility] [place] [address] [place] [address] Alda Osborne MD [address] [place] [address] [place] [address] documented as of this encounter Visit Diagnoses Not on filedocumented in this encounter Care Teams Armored Truck Driver Relationship Specialty Start Date End Date Alda Osborne MD [address] [place] [address] [place] [address] PCP - General Family Medicine 09/08/22 Alda Osborne MD [address] [place] [address] [place], [place] [address] PCP - ACO Reach 05/25/23 05/01/24 Alda Osborne MD [address] [place] [address] [place], [place] [address] PCP - ACO Reach 05/09/24 06/26/24 Joan Calvo, RN [address] [place] [address] Clinical Advocate Family Medicine 05/02/24 05/23/24 documented as of this encounter
--- OUTSIDE RECORDS SUMMARY | 2024-11-27 00:40 | XMS_ITS | Encounter Summary ---
Author Organization [facility] Address [address] [facility] [place] [address] Care Team Providers Care Heavy Threader Name Role Phone Alda Osborne MD Primary Care Provider [phone] Alda Osborne MD Unavailable Joan Calvo RN Unavailable [phone] Alda Osborne MD Unavailable Encounter Details Date Type Department Care Team (Late st Contact Info) Description 02/07/2024 Abstract [facility] [place] [facility] [address] [facility] 110 [place] [address] Alda Osborne MD [address] [facility] 110 [place] [address] Social History Tobacco Use Types Packs/Day Years [...] often do you attend chur ch or pentecostalism services? Never 01/25/2023 Do you belong to [...] Recorded Patient Health Questionnaire-2 Score 0 06/14/2023 [facility] - Occupational Stress Questionnaire Answer [...] [address] [place] [address] Agnieszka Humphreys PA [address] [place] [address] [place] [address] 12/09/2024 11:00 AM EDT Office Visit [facility] [place] [address] [place] [address] Alda Osborne MD [address] [place] [address] [place] [address] documented as of this encounter Visit Diagnoses Not on filedocumented in this encounter Care Teams Heavy Threader Relationship Specialty Start Date End Date Alda Osborne MD [address] [place] [address] [place] [address] PCP - General Family Medicine 09/08/22 Alda Osborne MD [address] [place] [address] [place], [place] [address] PCP - ACO Reach 05/25/23 05/01/24 Alda Osborne MD [address] [place] [address] [place], [place] [address] PCP - ACO Reach 05/09/24 06/26/24 Joan Calvo, RN [address] [place] [address] Clinical Advocate Family Medicine 05/02/24 05/23/24 documented as of this encounter
--- OUTSIDE RECORDS SUMMARY | 2024-11-27 00:40 | XMS_ITS | Clinical Summary ---
Author Organization [facility] Address [address] [facility], [address] [place] [address] Care Team Providers Care Pediatric Intensive Physician Name Role Phone Alda Osborne MD Primary Care Provider [phone] Allergies No known active allergies Medications pravastatin [...] 11:07 PM 12/13/2012 5:27 PM Care Teams Pediatric Intensive Physician Relationship Specialty Start Date End Date Alda Osborne MD PCP - General Family Medicine 10/09/17
--- OUTSIDE RECORDS SUMMARY | 2024-11-27 00:40 | XMS_ITS | Encounter Summary ---
Author Organization [facility] Address [address] [facility] [place] [address] Care Team Providers Care Diesel Power Shovel Operator Name Role Phone Alda Osborne MD Primary Care Provider [phone] Alda Osborne MD Unavailable Joan Calvo RN Unavailable [phone] Alda Osborne MD Unavailable Encounter Details Date Type Department Care Team (Late st Contact Info) Description 04/30/2023 Orders Only [facility] [address] [place] [address] Cornelia Irwin MA Social History Tobacco Use [...] often do you attend chur ch or caodaism services? Never 01/25/2023 Do you belong to any clubs o r organizations such as sikhism groups, unions, fraternal or athletic groups, or [...] and heating? Not hard at all 01/25/2023 [facility] - Occupational [...] 10:00 AM EDT [facility] [place] [facility] [address] [place] [address] Agnieszka Humphreys PA [address] [place] [address] [place] [address] 12/09/2024 11:00 AM EDT Office Visit [facility] [place] [facility] [address] [place] [address] Alda Osborne MD [address] [place] [address] [place] [address] documented as of this encounter Visit Diagnoses Not on filedocumented in this encounter Care Teams Diesel Power Shovel Operator Relationship Specialty Start Date End Date Alda Osborne MD [address] [place] [address] [place] [address] PCP - General Family Medicine 09/08/22 Alda Osborne MD [address] [place] [address] [place] [address] PCP - ACO Reach 05/25/23 05/01/24 Alda Osborne MD [address] [place] [address] 110 [place] [address] PCP - ACO Reach 05/09/24 06/26/24 Joan Calvo RN [address] [place] [address] Clinical Advocate Family Medicine 05/02/24 05/23/24 documented as of this encounter
--- OUTSIDE RECORDS SUMMARY | 2024-11-27 00:40 | XMS_ITS | Encounter Summary ---
Author Organization [facility] Address [address] [place] [place] [address] Care Team Providers Care Shipyard Painter Name Role Phone Alda Shea MD Primary Care Provider [phone] Alda Shea MD Unavailable Joan Calvo RN Unavailable [phone] Alda Shea MD Unavailable Encounter Details Date Type Department Care Team (Late st Contact Info) Description 04/20/2023 Clinisync Result Encounter [facility] External Department Unsolicited Juliet Black PA [address] [place] [address] [place] [address] Social History Tobacco Use Types Packs/Day Years [...] often do you attend chur ch or episcopal services? Never 01/25/2023 Do you belong to any clubs o r organizations such as jew groups, unions, fraternal or athletic groups, or [...] 12/02/2024 10:00 AM EDT [facility] [place] [facility] [address] [place] [address] Agnieszka Humphreys PA [address] [place] [address] [place] [address] 12/09/2024 11:00 AM EDT Office [facility] [place] [facility] [address] [place] [address] Alda Shea MD [address] [place] [address] [place] [address] documented as of this encounter Procedures Procedure Name Priority Date/Time Associated Diagnosis Comments ECG 12-LEAD 04/20/2023 1:28 PM EST documented in this encounter Results * ECG 12-LEAD (04/20/2023 1:28 PM EST) Anatomical Region Laterality Modality Other 04/20/2023 1:28 PM EST Narrative 04/22/2023 10:39 AM EST The [address] [address] Electrocardiograph Report Signed Patient: FREIDA DOUGHERTY MR#: [id number] : 1950 Acct:[id number] Age/Sex: 72 / M ADM Date: 04/20/23 Loc: MS 213-[address]: Terry Bailey M.D. Ordering Physician: Juliet Black Date of Service: 04/20/23 Procedure(s): ECG 12 lead Accession Number(s): [id number] cc: The [facility] Test Date: 2023-04-20 Pat Name: FREIDA DOUGHERTY Department: Room: - Gender: Male Soil Conservation Aide: : 1950 Requested By: ALDA SHEA Order Number: [id number] Reading MD: JOSUE ALBERT Measurements Intervals [place] Rate: 100 P: 82 HI: 186 QRS: 88 QRSD: 100 T: 79 QT: 338 QTc: 395 Interpretive Statements 1120 Sinus tachycardia 6120 Possible right atrial enlargement 0102 ARTIFACT PRESENT 9140 abnormal rhythm ECG Compared to ECG 10/29/2022 11:21:26 Ventricular premature complex(es) no longer present Electronically Signed On 04-22-2023 10:39:21 EST by JOSUE ALBERT Dictated By: Josue Albert D.O. Signed By: 04/22/23 1039 DD/ 1328 TD/TT: Tool Planner: Procedure Note Radiology, Radiologist, MD - 04/22/[address] [address] Electrocardiograph Report Signed Patient: FREIDA DOUGHERTY EMR#: [id number] : 1950cct:[id number] Age/Sex: 72 / MADM Date: 04/20/23 Loc: [place] 213-[address]: Terry Bailey M.D. Ordering Physician: Juliet Black Date of Service: 04/20/23 Procedure(s): ECG 12 lead Accession Number(s): [id number] cc: [facility] Test Date: 2023-04-20 Pat Name: FREIDA DOUGHERTY Department: Room: - Gender: Male Soil Conservation Aide: : 1950 Requested By: ALDA SHEA Order Number: [id number] Reading MD: JOSUE ALBERT Measurements Intervals [place] Rate: 100 P: 82 HI: 186 QRS: 88 QRSD: 100 T: 79 QT: 338 QTc: 395 Interpretive Statements 1120 Sinus tachycardia 6120 Possible right atrial enlargement 0102 ARTIFACT PRESENT 9140 abnormal rhythm ECG Compared to ECG 10/29/2022 11:21:26 Ventricular premature complex(es) no longer present Electronically Signed On 04-22-2023 10:39:21 EST by JOSUE ALBERT Dictated By: Josue Albert D.O. Signed By:04/22/23 1039 DD/ 1328 TD/TT: Tool Planner: Juliet [facility] Final Result documented in this encounter Visit Diagnoses Not on filedocumented in this encounter Care Teams Shipyard Painter Relationship Specialty Start Date End Date Alda Shea MD [address] [address] PCP - General Family Medicine 09/08/22 Alda Shea MD [address] [facility] 110 [place] [address] PCP - ACO Reach 05/25/23 05/01/24 Alda Shea MD [address] [facility] 110 [place] [address] PCP - ACO Reach 05/09/24 06/26/24 Joan Calvo, PATI [address] [place], [place] [address] Clinical Advocate Family Medicine 05/02/24 05/23/24 documented as of this encounter
--- OUTSIDE RECORDS SUMMARY | 2024-11-27 00:40 | XMS_ITS | Clinical Summary ---
Author Organization [facility] Address [address] [facility] [place] [address] Care Team Providers Care Collection Systems Modeler Name Role Phone Alda Osborne MD Primary Care Provider [phone] Allergies No known active allergies Medications aspirin 81 MG chewable tablet Chew 81 mg 1 (one) time. Active Mlkuoaq-Yrjjrrmjyve-Ezj moterol (Breztri Aerosphere) 160-9-4.8 MCG/ACT aerosol Inhale [...] breath 75 mL 2 024 Active Drug [place] Unifine Pentips 31G X 6 MM misc [...] 2 diabetes mellitus without complication, unspecified whether computed tomography technologist insulin use (HCC) Take 1 tablet (1,000 mg) by mouth in the morning and 1 tablet (1,000 mg) in the evening. Take with meals. 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 Discussed potential health risks of skilled nursing smoking. Patient voiced understanding. Benefits of cessation, [...] AM EDT Office Visit [facility] [place] [facility] [address] [facility] 110 [place] [address] Alda Osborne MD Inguinal hernia of left side without obstruction or gangrene (Primary Dx); Primary insomnia; Elevated PSA 11/25/2024 Travel 09/23/2024 Refill [facility] [place] [facility] [address] [place] [address] [place] [address] Joan Blevins MA Pure hypercholesterolemia from [...] week 01/25/2023 How often do you attend [facility] or scientology services? Never 01/25/2023 Do you [...] Recorded Patient Health Questionnaire-2 Score 0 11/25/2024 [facility] - Occupational Stress Questionnaire [...] place to sleep or slept in a assisted (including now)? No 01/25/2023 Sex and Gender [...] 10:00 AM EDT Office Visit [facility] [place] [facility] [address] [facility] 110 [place] [address] Agnieszka Humphreys PA [address] [facility] 110 [place] [address] 12/09/2024 11:00 AM EDT Office Visit [facility] [place] [address] [facility] 110 [place] [address] Alda Osborne MD [address] [facility] [address] [place] [address] Health Maintenance Due Date Last Done Comments [...] disease, with long-term current use of insulin ([facility]) Medicare annual wellness visit, subsequent HEMOGLOBIN A1C Routine 07/25/2024 9:36 AM EDT Type 2 diabetes mellitus with stage 3a chronic kidney disease, with long-term current use of insulin ([facility]) Medicare annual wellness visit, subsequent COLOR FUNDUS PHOTOGRAPHY - OU - BOTH EYES Routine 09/17/2018 12:00 PM EDT Type 2 diabetes mellitus without complications ([facility]) Encounter for screening for eye and ear [...] Performing Organization Information Site ID: QPT Name: [facility] Address: [address] [place] [address], [address] [place] [phone] Director: Vito Fragoso MD Alda Osborne MD LAB URINE ORDERABLES Final Resul t [facility] * (ABNORMAL) Hemoglobin A1c (07/25/2024 9:36 [...] Performing Organization Information Site ID: QPT Name: [facility] Address: [address] [place] [address], [address] [place] [phone] Director: Vito Fragoso MD Alda Osborne MD LAB BLOOD ORDERABLES Final Resul t [facility] * Color Fundus Photography - OU - Both Eyes (09/17/2018 12:00 PM EDT) Anatomical Region Laterality Modality Head Fundus Photograp hy 09/17/2018 12:0 0 PM EDT Narrative 09/17/2018 12:00 PM EDT PERFORMED AT [facility] LOCATION:[id number] [facility] Procedure Note CONVERSION, GENERIC - 08/09/2022 PERFORMED AT [facility] LOCATION:[id number] [facility] Alda Osborne MD OPHTH PHOTOGRAPHY Final Result * Colonoscopy (02/12/2014 12:00 PM EST) Anatomical Region Laterality Modality Endoscopy 02/12/2014 12:0 0 PM EST Narrative 02/12/2014 12:00 PM EST PERFORMED AT [facility] LOCATION:[id number] Normal Procedure Note CONVERSION, GENERIC - 08/10/2022 PERFORMED AT [facility] LOCATION:[id number] Normal Alda Osborne MD ENDOSCOPY PROCEDURE ORDERABLES F inal Result from Last 3 Months or Most Recently Relevant to Health Maintenance Insurance [employer] MEDICARE [employer]VANTAGE Care Teams Collection Systems Modeler Relationship Specialty Start Date End Date Alda Osborne MD [address] [address] PCP - General Family Medicine 09/08/22
--- OUTSIDE RECORDS SUMMARY | 2024-11-27 00:40 | XMS_ITS | Clinical Summary ---
Author Organization [facility] Address [address] [place] [address] Care Team Providers Care Router Operator Radial Name Role Phone Unavailable Primary Care Provider [...]
--- OUTSIDE RECORDS SUMMARY | 2024-11-27 00:41 | XMS_ITS | Encounter Summary ---
Author Organization [facility] Address [address] [facility] [place] [address] Care Team Providers Care Trauma Surgeon Name Role Phone Alda Osborne MD Primary Care Provider [phone] Alda Osborne MD Unavailable Joan Calvo RN Unavailable [phone] Alda Osborne MD Unavailable Encounter Details Date Type Department Care Team (Late st Contact Info) Description 04/23/2023 [facility] [address] [place] [address] A, Unknown Practice [address] [phone] Social History Tobacco Use Types Packs/Day Years [...] any clubs o r organizations such as oriental orthodox groups, unions, fraternal or athletic groups, [...] and heating? Not hard at all 01/25/2023 [facility]at ional Health - Occupational [...] place to sleep or slept in a retirement (including now)? No 01/25/2023 Sex and Gender [...] [address] [place] [address] Agnieszka Humphreys PA [address] [place] [address] [place] [address] 12/09/2024 11:00 AM EDT Office Visit [facility] [place] [facility] [address] [place] [address] Alda Osborne MD [address] [place] [address] [place] [address] documented as of this encounter Procedures Procedure [...] on filedocumented in this encounter Care Teams Trauma Surgeon Relationship Specialty Start Date End Date Alda Osborne MD [address] [place] [address] [place] [address] PCP - General Family Medicine 09/08/22 Alda Osborne MD [address] [place] [address] [place] [address] PCP - ACO Reach 05/25/23 05/01/24 Alda Osborne MD [address] [place] [address] [place] [address] PCP - ACO Reach 05/09/24 06/26/24 Joan Calvo RN [address] [place], [place] [id number] Clinical Advocate Family Medicine 05/02/24 05/23/24 documented as of this encounter
--- OUTSIDE RECORDS SUMMARY | 2024-11-27 00:41 | XMS_ITS | Encounter Summary ---
Author Organization [facility] Address [address] [facility] [address] Care Team Providers Care Information Writer Name Role Phone Alda Osborne MD Primary Care Provider [phone] Alda Osborne MD Unavailable Joan Calvo RN Unavailable [phone] Alda Osborne MD Unavailable Encounter Details Date Type Department Care Team (Late st Contact Info) Description 10/31/2022 Orders Only [facility] [place] [facility] [address] [place] [address] A, Unknown Practice [address] [place], [place] [address] Social History Tobacco Use Types Packs/Day Years [...] 10:00 AM EDT Office Visit [facility] [place] [facility] [address] [place] [address] Agnieszka Humphreys PA [address] [place] [address] 12/09/2024 11:00 AM EDT Office Visit [facility] [place] [facility] [address] [place] [address] Alda Osborne MD [address] [place] [address] [place] [address] documented as of this encounter Procedures Procedure Name Priority Date/Time Associated Diagnosis Comments ELECTROCARDIOGRAM REPORT Routine 023 10:16 AM EDT documented in this encounter Results * Electrocardiogram Report (10/29/2022 10:16 AM EDT) us Unknown Practice A IN CLINIC/BEDSIDE ORDERABLES Final Result documented in this encounter Visit Diagnoses Not on filedocumented in this encounter Care Teams Information Writer Relationship Specialty Start Date End Date Alda Osborne MD [address] [facility] [address] [place] [address] PCP - General Family Medicine 09/08/22 Alda Osborne MD [address] [facility] 110 [place] [address] PCP - ACO Reach 05/25/23 05/01/24 Alda Osborne MD [address] [facility] [address] [place] [address] PCP - ACO Reach 05/09/24 06/26/24 Joan Calvo, RN [address] [place] [address] Clinical Advocate Family Medicine 05/02/24 05/23/24 documented as of this encounter
--- OUTSIDE RECORDS SUMMARY | 2024-11-27 00:41 | XMS_ITS | Encounter Summary ---
Author Organization [facility] Address [address] [facility] [place] [address] Care Team Providers Care Nursing Clerk Name Role Phone Alda Osborne MD Primary Care Provider [phone] Alda Osborne MD Unavailable Joan Calvo RN Unavailable [phone] Alda Osborne MD Unavailable Encounter Details Date Type Department Care Team (Late st Contact Info) Description 03/05/2023 Abstract [facility] [place] [facility] [address] [facility] 110 [place] [address] Alda Osborne MD [address] [facility] 110 [place] [address] Social History Tobacco Use Types Packs/Day Years [...] often do you attend chur ch or denominational services? Never 01/25/2023 Do you belong to any clubs o r organizations such as roman catholic groups, unions, fraternal or athletic groups, or [...] and heating? Not hard at all 01/25/2023 [facility] of Occupat ional Health - Occupational Stress [...] place to sleep or slept in a fdc (including now)? No 01/25/2023 Sex and Gender [...] [address] [facility] [address] [place] [address] Agnieszka Humphreys PA [address] [facility] [address] [place] [address] 12/09/2024 11:00 AM EDT Office Visit [facility] [place] [facility] [address] [facility] [address] [place] [address] Alda Osborne MD [address] [facility] [address] [place] [address] documented as of this encounter Visit Diagnoses Not on filedocumented in this encounter Care Teams Nursing Clerk Relationship Specialty Start Date End Date Alda Osborne MD [address] [facility] [address] [place] [address] PCP - General Family Medicine 09/08/22 Alda Osborne MD [address] [facility] 110 [place] [address] PCP - ACO Reach 05/25/23 05/01/24 Alda Osborne MD [address] [facility] 110 [place] [address] PCP - ACO Reach 05/09/24 06/26/24 Joan Calvo, RN [address] [place] [address] Clinical Advocate Family Medicine 05/02/24 05/23/24 documented as of this encounter
--- OUTSIDE RECORDS SUMMARY | 2024-11-27 00:41 | XMS_ITS | Encounter Summary ---
Author Organization [facility] Address [address] [facility] [place] [address] Care Team Providers Care Asphalt Paving Machine Operator Name Role Phone Alda Osborne MD Primary Care Provider [phone] Alda Osborne MD Unavailable Joan Calvo RN Unavailable [phone] Alda Osborne MD Unavailable Encounter Details Date Type Department Care Team (Late Contact Info) Description 12/06/2022 Abstract [facility] [place] [facility] [address] [facility] 110 [place] [address] Alda Osborne MD [address] [facility] 110 [place] [address] Social History Tobacco Use Types Packs/Day Years [...] Department Care Team (Late Contact Info) Description 12/02/2024 10:00 AM EDT Office Visit [facility] [place] [facility] [address] [facility] 110 [place] [address] Agnieszka Humphreys PA [address] [facility] 110 [place] [address] 12/09/2024 11:00 AM EDT Office Visit [facility] [place] [facility] [address] [facility] 110 [place] [address] Alda Osborne MD [address] [facility] [address] [place] [address] documented as of this encounter Visit Diagnoses Not on filedocumented in this encounter Care Teams Asphalt Paving Machine Operator Relationship Specialty Start Date End Date Alda Osborne MD [address] [facility] 110 [place] [address] PCP - General Family Medicine 09/08/22 Alda Osborne MD [address] [facility] 110 [place] [address] PCP - ACO Reach 05/25/23 05/01/24 Alda Osborne MD [address] [facility] 110 [place] [address] PCP - ACO Reach 05/09/24 06/26/24 Joan Calvo, RN [address] [place] [address] Clinical Advocate Family Medicine 05/02/24 05/23/24 documented as of this encounter
--- OUTSIDE RECORDS SUMMARY | 2024-11-27 00:41 | XMS_ITS | Encounter Summary ---
Author Organization [facility] Address [address] [facility] [place] [address] Care Team Providers Care Tugboat Engineer Name Role Phone Alda Osborne MD Primary Care Provider [phone] Encounter Details Date Type Department Care Team (Late st Contact Info) Description 08/05/2024 Abstract [facility] [place] [facility] [address] [facility] [address] [place] [address] Alda Osborne MD [address] [facility] [address] [place] [address] Social History Tobacco Use Types Packs/Day Years [...] any clubs o r organizations such as gnosticism groups, unions, fraternal or athletic groups, or [...] Recorded Patient Health Questionnaire-2 Score 0 08/04/2024 [facility] of Occupat ional Health - [...] place to sleep or slept in a custodial (including now)? No 01/25/2023 Sex and Gender Information Value Date Recorded Sex Assigned at Not on file Legal Sex Male 6:46 PM EDT Gender Identity Not on file Sexual Orientation Not on file documented as of this encounter Plan of Treatment Upcoming Encounters Date Type Department Care Team (Late st Contact Info) Description 12/02/2024 10:00 AM EDT [facility] [place] [facility] [address] [facility] [address] [place] [address] Agnieszka Humphreys PA [address] [facility] [address] [place] [address] 12/09/2024 11:00 AM EDT Office Visit [facility] [place] [facility] [address] [facility] [address] [place] [address] Alda Osborne MD [address] [facility] [address] [place] [address] documented as of this encounter Visit Diagnoses Not on filedocumented in this encounter Care Teams Tugboat Engineer Relationship Specialty Start Date End Date Alda Osborne MD [address] [facility] [address] [place] [address] PCP - General Family Medicine 09/08/22 documented as of this encounter
--- OUTSIDE RECORDS SUMMARY | 2024-11-27 00:41 | XMS_ITS | Encounter Summary ---
Author Organization [facility] Address [address] [facility] [place] [address] Care Team Providers Care Shower Maid Name Role Phone Alda Osborne MD Primary Care Provider [phone] Alda Osborne MD Unavailable Joan Calvo RN Unavailable [phone] Alda Osborne MD Unavailable Encounter Details Date Type Department Care Team (Late st Contact Info) Description 10/30/2022 Orders Only [facility] [place] [facility] [address] [facility] 110 [place] [phone] Veronique Ellis, [address] [facility], [place] [id number] Social History Tobacco Use Types Packs/Day Years [...] [address] [facility] [address] [place] [address] Agnieszka Humphreys PA [address] [facility] [address] [place] [address] 12/09/2024 11:00 AM EDT Office Visit [facility] [place] [facility] [address] [facility] [address] [place] [address] Alda Osborne MD [address] [facility] [address] [place] [address] documented as of this encounter Procedures Procedure [...] Laterality Modality Chest Radiographic Ayla ging us Veronique Ellis DO IMG XR PROCEDURES Final Resu lt documented in this encounter Visit Diagnoses Not on filedocumented in this encounter Care Teams Shower Maid Relationship Specialty Start Date End Date Alda Osborne MD [address] [facility] 110 [place] [address] PCP - General Family Medicine 09/08/22 Alda Osborne MD [address] [facility] 110 [place] [address] PCP - ACO Reach 05/25/23 05/01/24 Alda Osborne MD [address] [facility] 110 [place] [address] PCP - ACO Reach 05/09/24 06/26/24 Joan Calvo, RN [address] [facility] [place] [address] Clinical Advocate Family Medicine 05/02/24 05/23/24 documented as of this encounter
--- OUTSIDE RECORDS SUMMARY | 2024-11-27 00:41 | XMS_ITS | Encounter Summary ---
Author Organization [facility] Address [address] [facility] [place] [address] Care Team Providers Care Admitting Coordinator Name Role Phone Alda Osborne MD Primary Care Provider [phone] Alda Osborne MD Unavailable Joan Calvo RN Unavailable [phone] Alda Osborne MD Unavailable Encounter Details Date Type Department Care Team (Late st Contact Info) Description 02/07/2023 Abstract [facility] [place] [facility] [address] [facility] 110 [place] [address] Alda Osborne MD [address] [facility] 110 [place] [address] Social History Tobacco Use Types Packs/Day Years [...] any clubs o r organizations such as confucianist groups, unions, fraternal or athletic groups, or [...] and heating? Not hard at all 01/25/2023 [facility] of Occupat ional Health - Occupational [...] place to sleep or slept in a snf (including now)? No 01/25/2023 Sex and Gender [...] [address] [facility] [address] [place] [address] Agnieszka Humphreys PA [address] [facility] [address] [place] [address] 12/09/2024 11:00 AM EDT Office Visit [facility] [place] [facility] [address] [facility] [address] [place] [address] Alda Osborne MD [address] [facility] [address] [place] [address] documented as of this encounter Visit Diagnoses Not on filedocumented in this encounter Care Teams Admitting Coordinator Relationship Specialty Start Date End Date Alda Osborne MD [address] [facility] [address] [place] [address] PCP - General Family Medicine 09/08/22 Alda Osborne MD [address] [facility] 110 [place] [address] PCP - ACO Reach 05/25/23 05/01/24 Alda Osborne MD [address] [facility] 110 [place] [address] PCP - ACO Reach 05/09/24 06/26/24 Joan Calvo, RN [address] [place] [address] Clinical Advocate Family Medicine 05/02/24 05/23/24 documented as of this encounter
--- OUTSIDE RECORDS SUMMARY | 2024-11-27 00:41 | XMS_ITS | Encounter Summary ---
Author Organization [facility] Address [address] [facility] [place] [address] Care Team Providers Care Turpentine Farmer Name Role Phone Alda Osborne MD Primary Care Provider [phone] Alda Osborne MD Unavailable Joan Calvo RN Unavailable [phone] Alda Osborne MD Unavailable Encounter Details Date Type Department Care Team (Late st Contact Info) Description 04/23/2023 Abstract [facility] [place] [facility] [address] [facility] 110 [place] [address] Alda Osborne MD [address] [facility] 110 [place] [address] Social History Tobacco Use Types Packs/Day Years [...] often do you attend chur ch or congregational services? Never 01/25/2023 Do you belong to [...] and heating? Not hard at all 01/25/2023 [facility] of Occupat ional Health - Occupational [...] [address] [facility] [address] [place] [address] Agnieszka Humphreys PA [address] [facility] [address] [place] [address] 12/09/2024 11:00 AM EDT Office Visit [facility] [place] [facility] [address] [facility] [address] [place] [address] Alda Osborne MD [address] [facility] [address] [place] [address] documented as of this encounter Visit Diagnoses Not on filedocumented in this encounter Care Teams Turpentine Farmer Relationship Specialty Start Date End Date Alda Osborne MD [address] [facility] [address] [place] [address] PCP - General Family Medicine 09/08/22 Alda Osborne MD [address] [facility] 110 [place] [address] PCP - ACO Reach 05/25/23 05/01/24 Alda Osborne MD [address] [facility] 110 [place] [address] PCP - ACO Reach 05/09/24 06/26/24 Joan Calvo, RN [address] [place] [address] Clinical Advocate Family Medicine 05/02/24 05/23/24 documented as of this encounter
--- OUTSIDE RECORDS SUMMARY | 2024-11-27 00:41 | XMS_ITS | Encounter Summary ---
Author Organization [facility] Address [address] [facility] [place] [address] Care Team Providers Care Credit Associate Name Role Phone Alda Osborne MD Primary Care Provider [phone] Alda Osborne MD Unavailable Joan Calvo RN Unavailable [phone] Alda Osborne MD Unavailable Encounter Details Date Type Department Care Team (Late st Contact Info) Description 04/23/2023 Abstract [facility] [place] [facility] [address] [facility] 110 [place] [address] Alda Osborne MD [address] [facility] 110 [place] [address] Social History Tobacco Use Types Packs/Day Years [...] any clubs o r organizations such as pentecostalism groups, unions, fraternal or athletic groups, or [...] [address] [facility] [address] [place] [address] Agnieszka Humphreys PA [address] [facility] 110 [place] [address] 12/09/2024 11:00 AM EDT Office Visit [facility] [place] [facility] [address] [facility] [address] [place] [address] Alda Osborne MD [address] [facility] [address] [place] [address] documented as of this encounter Visit Diagnoses Not on filedocumented in this encounter Care Teams Credit Associate Relationship Specialty Start Date End Date Alda Osborne MD [address] [facility] [address] [place] [address] PCP - General Family Medicine 09/08/22 Alda Osborne MD [address] [facility] 110 [place] [address] PCP - ACO Reach 05/25/23 05/01/24 Alda Osborne MD [address] [facility] 110 [place] [address] PCP - ACO Reach 05/09/24 06/26/24 Joan Calvo, RN [address] [place] [address] Clinical Advocate Family Medicine 05/02/24 05/23/24 documented as of this encounter
--- OUTSIDE RECORDS SUMMARY | 2024-11-27 00:41 | XMS_ITS | Encounter Summary ---
Author Organization [facility] Address [address] [place] [facility] [place] [address] Care Team Providers Care Portable Grinding Machine Operator Name Role Phone Alda Osborne MD Primary Care Provider [phone] Alda Osborne MD Unavailable Joan Calvo RN Unavailable [phone] Alda Osborne MD Unavailable Encounter Details Date Type Department Care Team (Late st Contact Info) Description 04/23/2023 Abstract [facility] [place] [facility] [address] [facility] 110 [place] [address] Alda Osborne MD [address] [facility] 110 [place] [address] Social History Tobacco Use Types Packs/Day Years [...] and heating? Not hard at all 01/25/2023 [facility] of Occupat ional Health - Occupational Stress [...] [address] [facility] [address] [place] [address] Agnieszka Humphreys PA [address] [facility] 110 [place] [address] 12/09/2024 11:00 AM EDT Office Visit [facility] [place] [facility] [address] [facility] [address] [place] [address] Alda Osborne MD [address] [facility] 110 [place] [address] documented as of this encounter Visit Diagnoses Not on filedocumented in this encounter Care Teams Portable Grinding Machine Operator Relationship Specialty Start Date End Date Alda Osborne MD [address] [facility] [address] [place] [address] PCP - General Family Medicine 09/08/22 Alda Osborne MD [address] [facility] 110 [place] [address] PCP - ACO Reach 05/25/23 05/01/24 Alda Osborne MD [address] [facility] 110 [place] [address] PCP - ACO Reach 05/09/24 06/26/24 Joan Calvo, RN [address] [place] [address] Clinical Advocate Family Medicine 05/02/24 05/23/24 documented as of this encounter
--- OUTSIDE RECORDS SUMMARY | 2024-11-27 00:41 | XMS_ITS | Encounter Summary ---
Author Organization [facility] Address [address] [facility] [place] [address] Care Team Providers Care Turning Sander Tender Name Role Phone Alda Osborne MD Primary Care Provider [phone] Alda Osborne MD Unavailable Joan Calvo RN Unavailable [phone] Alda Osborne MD Unavailable Encounter Details Date Type Department Care Team (Late st Contact Info) Description 04/23/2023 Abstract [facility] [place] [facility] [address] [facility] 110 [place] [address] Alda Osborne MD [address] [facility] 110 [place] [address] Social History Tobacco Use Types Packs/Day Years [...] any clubs o r organizations such as episcopalian groups, unions, fraternal or athletic groups, or [...] and heating? Not hard at all 01/25/2023 [facility] of Occupat ional Health - Occupational Stress [...] [address] [facility] [address] [place] [address] Agnieszka Humphreys PA [address] [facility] [address] [place] [address] 12/09/2024 11:00 AM EDT Office Visit [facility] [place] [facility] [address] [facility] [address] [place] [address] Alda Osborne MD [address] [facility] [address] [place] [address] documented as of this encounter Visit Diagnoses Not on filedocumented in this encounter Care Teams Turning Sander Tender Relationship Specialty Start Date End Date Alda Osborne MD [address] [facility] [address] [place] [address] PCP - General Family Medicine 09/08/22 Alda Osborne MD [address] [facility] 110 [place] [address] PCP - ACO Reach 05/25/23 05/01/24 Alda Osborne MD [address] [facility] 110 [place] [address] PCP - ACO Reach 05/09/24 06/26/24 Joan Calvo, RN [address] [place] [address] Clinical Advocate Family Medicine 05/02/24 05/23/24 documented as of this encounter
--- OUTSIDE RECORDS SUMMARY | 2024-11-27 00:41 | XMS_ITS | Encounter Summary ---
Author Organization [facility] Address [address] [facility] [place] [address] Care Team Providers Care E Commerce Solution Architect Name Role Phone Alda Osborne MD Primary Care Provider [phone] Alda Osborne MD Unavailable Joan Calvo RN Unavailable [phone] Alda Osborne MD Unavailable Encounter Details Date Type Department Care Team (Late st Contact Info) Description 04/04/2023 Abstract [facility] [place] [facility] [address] [facility] 110 [place] [address] Alda Osborne MD [address] [facility] 110 [place] [address] Social History Tobacco Use Types Packs/Day Years [...] often do you attend chur ch or anabaptist services? Never 01/25/2023 Do you belong to [...] and heating? Not hard at all 01/25/2023 [facility] of Occupat ional Health - [...] to sleep or slept in a senior living (including now)? No 01/25/2023 Sex and Gender [...] [address] [facility] [address] [place] [address] Agnieszka Humphreys PA [address] [facility] 110 [place] [address] 12/09/2024 11:00 AM EDT Office Visit [facility] [place] [facility] [address] [facility] [address] [place] [address] Alda Osborne MD [address] [facility] [address] [place] [address] documented as of this encounter Visit Diagnoses Not on filedocumented in this encounter Care Teams E Commerce Solution Architect Relationship Specialty Start Date End Date Alda Osborne MD [address] [facility] [address] [place] [address] PCP - General Family Medicine 09/08/22 Alda Osborne MD [address] [facility] 110 [place] [address] PCP - ACO Reach 05/25/23 05/01/24 Alda Osborne MD [address] [facility] 110 [place] [address] PCP - ACO Reach 05/09/24 06/26/24 Joan Calvo, RN [address] [place] [address] Clinical Advocate Family Medicine 05/02/24 05/23/24 documented as of this encounter
--- OUTSIDE RECORDS SUMMARY | 2024-11-27 00:41 | XMS_ITS | Encounter Summary ---
Author Organization [facility] Address [address] [facility] [place] [address] Care Team Providers Care Construction Person Name Role Phone Alda Osborne MD Primary Care Provider [phone] Alda Osborne MD Unavailable Joan Calvo RN Unavailable [phone] Alda Osborne MD Unavailable Encounter Details Date Type Department Care Team (Late st Contact Info) Description 11/19/2022 Abstract [facility] [place] [facility] [address] [place] [address] Geraldine Paz LPN [address] [place] [address] Social History Tobacco Use Types Packs/Day Years [...] [address] [facility] [address] [place] [address] Agnieszka Humphreys PA [address] [facility] [address] [place] [address] 12/09/2024 11:00 AM EDT Office Visit [facility] [place] [facility] [address] [place] [address] Alda Osborne MD [address] [facility] 110 [place] [address] documented as of this encounter Visit Diagnoses Not on filedocumented in this encounter Care Teams Construction Person Relationship Specialty Start Date End Date Alda Osborne MD [address] [facility] 110 [place] [address] PCP - General Family Medicine 09/08/22 Alda Osborne MD [address] [facility] 110 [place] [address] PCP - ACO Reach 05/25/23 05/01/24 Alda Osborne MD [address] [facility] 110 [place] [address] PCP - ACO Reach 05/09/24 06/26/24 Joan Calvo, RN [address] [place] [address] Clinical Advocate Family Medicine 05/02/24 05/23/24 documented as of this encounter
--- OUTSIDE RECORDS SUMMARY | 2024-11-27 00:41 | XMS_ITS | Encounter Summary ---
Author Organization [facility] Address [address] [facility] [place] [address] Care Team Providers Care Rope Rider Name Role Phone Alda Osborne MD Primary Care Provider [phone] Alda Osborne MD Unavailable Joan Calvo RN Unavailable [phone] Alda Osborne MD Unavailable Encounter Details Date Type Department Care Team (Late st Contact Info) Description 04/23/2023 Abstract [facility] [place] [facility] [address] [facility] 110 [place] [address] Alda Osborne MD [address] [facility] 110 [place] [address] Social History Tobacco Use Types Packs/Day Years [...] any clubs o r organizations such as catholic groups, unions, fraternal or athletic groups, [...] and heating? Not hard at all 01/25/2023 [facility] of Occupat ional Health - Occupational [...] [facility] [place] [facility] [address] [facility] [address] [place] [address] Agnieszka Humphreys PA [address] [facility] [address] [place] [address] 12/09/2024 11:00 AM EDT Office Visit [facility] [place] [facility] [address] [place] [address] Alda Osborne MD [address] [facility] [address] [place] [address] documented as of this encounter Visit Diagnoses Not on filedocumented in this encounter Care Teams Rope Rider Relationship Specialty Start Date End Date Alda Osborne MD [address] [place] [address] PCP - General Family Medicine 09/08/22 Alda Osborne MD [address] [facility] 110 [place] [address] PCP - ACO Reach 05/25/23 05/01/24 Alda Osborne MD [address] [facility] 110 [place] [address] PCP - ACO Reach 05/09/24 06/26/24 Joan Calvo, RN [address] [place] [address] Clinical Advocate Family Medicine 05/02/24 05/23/24 documented as of this encounter
--- NOTE | 2024-11-28 10:46 | CM.DCFOLLOWU ---
1st attempt 11/28/24, no answer
--- NOTE | 2024-12-01 12:01 | CM.DCFOLLOWU ---
2nd attempt 12/01/24, no answer
--- NOTE | 2024-12-02 12:47 | CM.DCFOLLOWU ---
3rd attempt 12/02/24, no answer
== END 2024-11-26 12:12 | disposition home or self-care (01) ==
LOC: ER 02:45 → MS 08:49
PROVIDERS: Admitting Provider Internal Medicine; Emergency Provider Emergency Medicine; PCP Family Medicine; Visit Provider Internal Medicine
DX: R40.0 Somnolence (principal); T42.6X5A Adverse effect of other antiepileptic and sedative-hypnotic drugs, initial encounter; N40.1 Benign prostatic hyperplasia with lower urinary tract symptoms; F17.200 Nicotine dependence, unspecified, uncomplicated; Z91.81 History of falling
CPT/HCPCS: 36415; 70450; 80053; 81001; 83735; 85025; 93005; 97161; 97165; 99285; G0378

== ENCOUNTER 2025-01-06 17:33 | Observation (INO) | payer MEDICARE, SELFPAY ==
[2025-01-06] VITALS (25 sets, daily range): BP systolic 104–136; BP diastolic 63–88; PULSE 89–108; TEMP 36.4; O2SAT 91–99; BMI 14.9; BMI 13.8
--- OUTSIDE RECORDS SUMMARY | 2025-01-06 17:41 | XMS_ITS | Encounter Summary ---
Author Organization [facility] Address [address] [place] [address] Care Team Providers Care Plum Packer Name Role Phone Alda Shea MD Primary Care Provider [phone] Alda Shea MD Unavailable Joan Calvo RN Unavailable [phone] Alda Shea MD Unavailable Encounter Details Date Type Department Care Team (Late st Contact Info) Description 04/20/2023 Clinisync Result Encounter [facility] External Department Unsolicited Juliet Black PA [address] [place] [address] Dr [place], [place] [id number] Social History Tobacco Use Types Packs/Day Years [...] No 01/25/2023 Social Connection and Isolation Panel Answer Date Recorded In a typical week, how many times do you talk on the phone with family, friends, or neighbors? Three times a week 01/25/2023 How often do you get togethe r with friends or relatives? Three times a week 01/25/2023 How often do you attend chur ch or mosque services? Never 01/25/2023 Do you belong to any clubs o r organizations such as mormon groups, unions, fraternal or athletic groups, or [...] and heating? Not hard at all 01/25/2023 [facility] - Occupational [...] place to sleep or slept in a intermediate (including now)? No 01/25/2023 Sex and Gender Information Value Date Recorded Sex Assigned at Not on file Legal Sex Male 6:46 PM EDT Gender Identity Not on file Sexual Orientation Not on file documented as of this encounter Plan of Treatment Upcoming Encounters Date Type Department Care Team (Late st Contact Info) Description 01/29/2025 2:15 PM EST [facility] Visit [facility] [address] [phone] Chi Reyes DO 703 [facility] 150 [place] [address] 03/10/2025 10:30 AM EST Office Visit [facility] [place] 112 [facility] 110 [place] [address] Alda Shea MD [address] [place] [facility] 110 [place] [address] documented as of this encounter Procedures Procedure Name Priority Date/Time Associated Diagnosis Comments ECG 12-LEAD 04/20/2023 1:28 PM EST documented in this encounter Results * ECG 12-LEAD (04/20/2023 1:28 PM EST) Anatomical Region Laterality Modality Other 04/20/2023 1:28 PM EST Narrative 04/22/2023 10:39 AM EST [facility] [place] [id number] Electrocardiograph Report Signed Patient: FREIDA DOUGHERTY MR#: [id number] : 1950 Acct:[id number] Age/Sex: 72 / M ADM Date: 04/20/23 Loc: MS 213-[address]: Terry Bailey M.D. Ordering Physician: Juliet Black Date of Service: 04/20/23 Procedure(s): ECG 12 lead Accession Number(s): [id number] cc: [facility] Test Date: 2023-04-20 Pat Name: FREIDA DOUGHERTY Department: Room: - Gender: Male Duplicating Machine Operator: : 1950 Requested By: ALDA SHEA Order Number: [id number] Reading MD: JOSUE ALBERT Measurements Intervals [place] Rate: 100 P: 82 NV: 186 QRS: 88 QRSD: 100 T: 79 QT: 338 QTc: 395 Interpretive Statements 1120 Sinus tachycardia 6120 Possible right atrial enlargement 0102 ARTIFACT PRESENT 9140 abnormal rhythm ECG Compared to ECG 10/29/2022 11:21:26 Ventricular premature complex(es) no longer present Electronically Signed On 04-22-2023 10:39:21 EST by JOSUE ALBERT Dictated By: Josue Alebrt D.O. Signed By: 04/22/23 1039 DD/ 1328 TD/TT: Inspector Filters: Procedure Note Radiology, Radiologist, MD - 04/22/[address] [address] Electrocardiograph Report Signed Patient: FREIDA DOUGHERTY EMR#: [id number] : 1950cct:[id number] Age/Sex: 72 / MADM Date: 04/20/23 Loc: [place] 213-[address]: Terry Bailey M.D. Ordering Physician: Juliet Black Date of Service: 04/20/23 Procedure(s): ECG 12 lead Accession Number(s): [id number] cc: [facility] Test Date: 2023-04-20 Pat Name: FREIDA DOUGHERTY Department: Room: - Gender: Male Duplicating Machine Operator: : 1950 Requested By: ALDA SHEA Order Number: [id number] Reading MD: JOSUE ALBERT Measurements Intervals [place] Rate: 100 P: 82 NV: 186 QRS: 88 QRSD: 100 T: 79 QT: 338 QTc: 395 Interpretive Statements 1120 Sinus tachycardia 6120 Possible right atrial enlargement 0102 ARTIFACT PRESENT 9140 abnormal rhythm ECG Compared to ECG 10/29/2022 11:21:26 Ventricular premature complex(es) no longer present Electronically Signed On 04-22-2023 10:39:21 EST by JOSUE ALBERT Dictated By: Josue Albert D.O. Signed By:04/22/23 1039 DD/ 1328 TD/TT: Inspector Filters: Juliet [facility] Final Result documented in this encounter Visit Diagnoses Not on filedocumented in this encounter Care Teams Plum Packer Relationship Specialty Start Date End Date Alda Shea MD [address] [place] [address] [address] PCP - General Family Medicine 09/08/22 Alda Shea MD [address] [place] [address] [address] PCP - ACO Reach 05/25/23 05/01/24 Alda Shea MD [address] [place] [address] [address] PCP - ACO Reach 05/09/24 06/26/24 Joan Calvo, PATI [address] [place], [place] [id number] Clinical Advocate Family Medicine 05/02/24 05/23/24 documented as of this encounter
--- OUTSIDE RECORDS SUMMARY | 2025-01-06 17:41 | XMS_ITS | Encounter Summary ---
Author Organization [facility] Address [address] [facility] [place] [address] Care Team Providers Care Production Designer Name Role Phone Alda Osborne MD Primary Care Provider [phone] Encounter Details Date Type Department Care Team (Late st Contact Info) Description 08/05/2024 Abstract [facility] [address] [facility] 110 [place] [address] Alda Osborne MD 112 [place] [facility] 110 [place] [address] Social History Tobacco Use Types Packs/Day Years [...] often do you attend chur ch or tenriism services? Never 01/25/2023 Do you belong to any clubs o r organizations such as baptism groups, unions, fraternal or athletic groups, or [...] Recorded Patient Health Questionnaire-2 Score 0 08/04/2024 [facility] Occupat ional Health - Occupational Stress [...] EST Office Visit [facility] [address] [address] Chi Reyes DO 703 [facility] 150 [place] [address] 03/10/2025 10:30 AM EST Office Visit [facility] [place] [address] [facility] 110 [place] [address] Alda Osborne MD [address] [facility] 110 [place] [address] documented as of this encounter Visit Diagnoses Not on filedocumented in this encounter Care Teams Production Designer Relationship Specialty Start Date End Date Alda Osborne MD [address] [facility] 110 [place] [address] PCP - General Family Medicine 09/08/22 documented as of this encounter
--- OUTSIDE RECORDS SUMMARY | 2025-01-06 17:41 | XMS_ITS | Clinical Summary ---
Author Organization [facility] Address [address] [place] [address] Care Team Providers Care Supervisor Wood Room Name Role Phone Unavailable Primary Care Provider Unavailabl e Social History Tobacco Use Types Packs/Day Years Used Date Smoking Tobacco: Never Assessed Sex and Gender Information Value Date Recorded Sex Assigned at Not on file Legal Sex Male 12:22 AM EDT Gender Identity Not on file Sexual Orientation Not on file Plan of Treatment Health Maintenance Due Date Last Done Comments Medicare Annual Wellness (AWV) 1950 Depression Screening 1960 Adult Tetanus 1970 Pneumococcal Vaccine: 50+ Ye ars (1 of 1 - PCV) 1998 Zoster Vaccines (1 of 2) 1998 Fall Risk Screening 2013 COVID-19 Vaccine (2023-2 5 season) 2024 Influenza Vaccine (#1) 2024 HIB Vaccines Aged Out No longer eligi ble based on patient's age to complete this topic HPV Vaccines Aged Out No longer eligi ble based on patient's age to complete this topic IPV Vaccines Aged Out No longer eligi ble based on patient's age to complete this topic Meningococcal B Vaccine Aged Out No l onger eligible based on patient's age to complete this topic Meningococcal Vaccine Aged Out No alexis lucio eligible based on patient's age to complete this topic Rotavirus Vaccines Aged Out No longer eligible based on patient's age to complete this topic Insurance [facility] MEDIC[facility]AGE
--- OUTSIDE RECORDS SUMMARY | 2025-01-06 17:41 | XMS_ITS | Encounter Summary ---
Author Organization [facility] Address [address] [place] [address] Care Team Providers Care Early Years Teacher Name Role Phone Alda Osborne MD Primary Care Provider [phone] Alda Osborne MD Unavailable Joan Calvo RN Unavailable [phone] Alda Osborne MD Unavailable Encounter Details Date Type Department Care Team (Late st Contact Info) Description 04/23/2023 Abstract [facility] [place] [facility] 112 [facility] 110 [place] [address] Alda Osborne MD 112 [facility] 110 [place], [place] [address] Social History Tobacco Use Types Packs/Day Years [...] How often do you attend chur or baptism services? Never 01/25/2023 Do you belong to any clubs o r organizations such as taoist groups, unions, fraternal or athletic groups, or [...] Not hard at all 01/25/2023 [facility] - Occupational Stress Questionnaire Answer Date [...] place to sleep or slept in a detention (including now)? No 01/25/2023 Sex and Gender Information Value Date Recorded Sex Assigned at Not on file Legal Sex Male 6:46 PM EDT Gender Identity Not on file Sexual Orientation Not on file documented as of this encounter Plan of Treatment Upcoming Encounters Date Type Department Care Team (Late st Contact Info) Description 01/29/2025 2:15 PM EST [facility] Visit [facility] [address] [phone] Chi Reyes DO 703 [facility] 150 [place] [address] 03/10/2025 10:30 AM EST Office Visit [facility] [place] [address] [facility] 110 [place] [address] Alda Osborne MD [address] [facility] 110 [place] [address] documented as of this encounter Visit Diagnoses Not on filedocumented in this encounter Care Teams Early Years Teacher Relationship Specialty Start Date End Date Alda Osborne MD [address] [facility] 110 [place] [address] PCP - General Family Medicine 09/08/22 Alda Osborne MD [address] [place] 110 [place], [place] [address] PCP - ACO Reach 05/25/23 05/01/24 Alda Osborne MD [address] [place] 110 [place], [place] [address] PCP - ACO Reach 05/09/24 06/26/24 Joan Calvo, RN [address] [place] [address] Clinical Advocate Family Medicine 05/02/24 05/23/24 documented as of this encounter
--- OUTSIDE RECORDS SUMMARY | 2025-01-06 17:41 | XMS_ITS | Encounter Summary ---
Author Organization [facility] Address [address] [place] [address] Care Team Providers Care Family Engagement Specialist Name Role Phone Alda Osborne MD Primary Care Provider [phone] Alda Osborne MD Unavailable Joan Calvo RN Unavailable [phone] Alda Osbrone MD Unavailable Encounter Details Date Type Department Care Team (Late st Contact Info) Description 06/20/2023 Abstract [facility] [place] [facility] 112 [facility] 110 [place] [address] Alda Osborne MD 112 [facility] 110 [place], [place] [address] Social History Tobacco Use Types Packs/Day Years [...] How often do you attend chur or mormon services? Never 01/25/2023 Do you belong to any clubs o r organizations such as yazdanism groups, unions, fraternal or athletic groups, or [...] Recorded Patient Health Questionnaire-2 Score 0 06/14/2023 [facility] of Occupat ional [facility] - Occupational Stress Questionnaire Answer [...] EST Office Visit [facility] [address] [phone] Chi Reyes DO [address] [address] 03/10/2025 10:30 AM EST Office Visit [facility] [place] [facility] [address] [facility] 110 [place] [address] Alda Osborne MD [address] [facility] 110 [place], [place] [address] documented as of this encounter Visit Diagnoses Not on filedocumented in this encounter Care Teams Family Engagement Specialist Relationship Specialty Start Date End Date Alda Osborne MD [address] [facility] 110 [place] [address] PCP - General Family Medicine 09/08/22 Alda Osborne MD [address] [place] [address] [place] [address] PCP - ACO Reach 05/25/23 05/01/24 Alda Osborne MD [address] [place] [address] [place] [address] PCP - ACO Reach 05/09/24 06/26/24 Joan Calvo, PATI [address] [place] [address] Clinical Advocate Family Medicine 05/02/24 05/23/24 documented as of this encounter
--- OUTSIDE RECORDS SUMMARY | 2025-01-06 17:41 | XMS_ITS | Encounter Summary ---
Author Organization [facility] Address [address] [facility] [place] [address] Care Team Providers Care Policy Writer Name Role Phone Alda Osborne MD Primary Care Provider [phone] Encounter Details Date Type Department Care Team (Late st Contact Info) Description 12/03/2024 Abstract [facility] [address] [facility] 110 [place] [address] Alda Osborne MD [address] [facility] 110 [place] [address] Social History Tobacco Use Types Packs/Day Years [...] often do you attend chur ch or roman catholic services? Never 01/25/2023 Do you belong to [...] Date Recorded Patient Health Questionnaire-2 Score 0 12/02/2024 [facility] of Occupat ional Health [...] place to sleep or slept in a usp (including now)? No 01/25/2023 Sex and Gender Information Value Date Recorded Sex Assigned at Not on file Legal Sex Male 6:46 PM EDT Gender Identity Not on file Sexual Orientation Not on file documented as of this encounter Plan of Treatment Upcoming Encounters Date Type Department Care Team (Late st Contact Info) Description 01/29/2025 2:15 PM EST [facility] [address] [address] Chi Reyes DO 703 [facility] 150 [place] [address] 03/10/2025 10:30 AM EST Office Visit [facility] [place] [facility] [address] [facility] 110 [place] [address] Alda Osborne MD [address] [facility] 110 [place] [address] documented as of this encounter Visit Diagnoses Not on filedocumented in this encounter Care Teams Policy Writer Relationship Specialty Start Date End Date Alda Osborne MD [address] [facility] 110 [place] [address] PCP - General Family Medicine 09/08/22 documented as of this encounter
--- OUTSIDE RECORDS SUMMARY | 2025-01-06 17:41 | XMS_ITS | Encounter Summary ---
Author Organization [facility] Address [address] [facility] [place] [address] Care Team Providers Care Drill Press Hand Name Role Phone Alda Osborne MD Primary Care Provider [phone] Alda Osborne MD Unavailable Joan Calvo RN Unavailable [phone] Alda Osborne MD Unavailable Encounter Details Date Type Department Care Team (Late st Contact Info) Description 11/13/2023 Abstract [facility] [place] [facility] 112 [facility] 110 [place] [address] Alda Osborne MD 112 [facility] 110 [place], [place] [address] Social History Tobacco Use Types Packs/Day Years [...] How often do you attend chur or presybeterian services? Never 01/25/2023 Do you belong to any clubs o r organizations such as alevism groups, unions, fraternal or athletic groups, or [...] Recorded Patient Health Questionnaire-2 Score 0 06/14/2023 [facility] of Occupat ional [facility] - Occupational Stress Questionnaire Answer Date [...] EST Office [facility] [address] [phone] Chi Reyes DO [address] [address] 03/10/2025 10:30 AM EST Office Visit [facility] [place] [facility] [address] [facility] 110 [place] [address] Alda Osborne MD [address] [place] 110 [place], [place] [address] documented as of this encounter Visit Diagnoses Not on filedocumented in this encounter Care Teams Drill Press Hand Relationship Specialty Start Date End Date Alda Osborne MD [address] [place] 110 [place] [address] PCP - General Family Medicine 09/08/22 Alda Osborne MD [address] [place] [address] [place] [address] PCP - ACO Reach 05/25/23 05/01/24 Alda Osborne MD [address] [place] [address] [place] [address] PCP - ACO Reach 05/09/24 06/26/24 Joan Calvo, PATI [address] [place] [address] Clinical Advocate Family Medicine 05/02/24 05/23/24 documented as of this encounter
--- OUTSIDE RECORDS SUMMARY | 2025-01-06 17:41 | XMS_ITS | Encounter Summary ---
Author Organization [facility] Address [address] [place] [address] [place] [address] Care Team Providers Care Crayon Molding Machine Operator Name Role Phone Alda Osborne MD Primary Care Provider [phone] Encounter Details Date Type Department Care Team (Late st Contact Info) Description 01/06/2025 Telephone [facility] 703 [facility] 150 [place] [address] Melina Logan LPN 703 [facility] [address] [place] [address] Social History Tobacco Use Types Packs/Day Years [...] any clubs o r organizations such as lutheran groups, unions, fraternal or athletic groups, or [...] Date Recorded Patient Health Questionnaire-2 Score 0 12/09/2024 [facility] of Occupat ional Health - Occupational [...] place to sleep or slept in a correction (including now)? No 01/25/2023 Sex and Gender Information Value Date Recorded Sex Assigned at Not on file Legal Sex Male 6:46 PM EDT Gender Identity Not on file Sexual Orientation Not on file documented as of this encounter Miscellaneous Notes * Telephone Encounter - Melina Logan LPN - 01/06/2025 4:29 PM EDT Lab phoned with critical lab, K+ 6.7. Closest hospital is [facility]. They are going to [facility] for evaluation and treatment. I also informed them Dr. Osborne, PCP will need to follow up with patient for medical clearance. Surgery sched. 01/20. They verbalized understanding. documented in this encounter Plan of Treatment Upcoming Encounters Date Type Department Care Team (Late st Contact Info) Description 01/29/2025 2:15 PM EST [facility] Visit [facility] 703 [facility] 150 [place] [address] Chi Reyes DO 703 [facility] 150 [place] [address] 03/10/2025 10:30 AM EST Office Visit [facility] [place] [facility] 112 [facility] 110 [place] [address] Alda Osborne MD 112 [facility] 110 [place] [address] documented as of this encounter Visit Diagnoses Not on filedocumented in this encounter Care Teams Crayon Molding Machine Operator Relationship Specialty Start Date End Date Alda Osborne MD 112 [facility] 110 [place] [address] PCP - General Family Medicine 09/08/22 documented as of this encounter
--- OUTSIDE RECORDS SUMMARY | 2025-01-06 17:41 | XMS_ITS | Encounter Summary ---
Author Organization [facility] Address [address] [facility] [place] [address] Care Team Providers Care Account Assistant Name Role Phone Alda Osborne MD Primary Care Provider [phone] Encounter Details Date Type Department Care Team (Late st Contact Info) Description 12/26/2024 Abstract [facility] [address] [facility] 110 [place] [address] Alda Osborne MD 112 [place] [facility] 110 [place] [address] Social History Tobacco Use Types Packs/Day Years [...] often do you attend chur ch or religion services? Never 01/25/2023 Do you belong to any clubs o r organizations such as druze groups, unions, fraternal or athletic groups, or [...] Recorded Patient Health Questionnaire-2 Score 0 12/09/2024 [facility] of Occupat ional Health - Occupational [...] place to sleep or slept in a skilled nursing (including now)? No 01/25/2023 Sex and Gender Information Value Date Recorded Sex Assigned at Not on file Legal Sex Male 6:46 PM EDT Gender Identity Not on file Sexual Orientation Not on file documented as of this encounter Plan of Treatment Upcoming Encounters Date Type Department Care Team (Late st Contact Info) Description 01/29/2025 2:15 PM EST [facility] [address] [address] Chi Reyes DO 703 [facility] 150 [place] [address] 03/10/2025 10:30 AM EST Office Visit [facility] [place] [facility] [address] [facility] 110 [place] [address] Alda Osborne MD [address] [facility] 110 [place] [address] documented as of this encounter Visit Diagnoses Not on filedocumented in this encounter Care Teams Account Assistant Relationship Specialty Start Date End Date Alda Osborne MD [address] [facility] 110 [place] [address] PCP - General Family Medicine 09/08/22 documented as of this encounter
--- OUTSIDE RECORDS SUMMARY | 2025-01-06 17:41 | XMS_ITS | Encounter Summary ---
Author Organization [facility] Address [address] [facility] [address] [place] [address] Care Team Providers Care Erp Analyst Name Role Phone Alda Osborne MD Primary Care Provider [phone] Alda Osborne MD Unavailable Joan Calvo RN Unavailable [phone] Alda Osborne MD Unavailable Encounter Details Date Type Department Care Team (Late st Contact Info) Description 04/30/2023 Orders Only [facility] [address] [place] [address] Cornelia Irwin MA Social History Tobacco Use [...] often do you attend chur ch or restorationism services? Never 01/25/2023 Do you belong to any clubs o r organizations such as tenriism groups, unions, fraternal or athletic groups, or [...] and heating? Not hard at all 01/25/2023 [facility] of Occupat ional Health - Occupational Stress [...] EST Office Visit [facility] [address] [address] Chi Reyes DO [address] [address] 03/10/2025 10:30 AM EST Office Visit [facility] [place] [address] [facility] 110 [place] [address] Alda Osborne MD [address] [facility] 110 [place] [address] documented as of this encounter Visit Diagnoses Not on filedocumented in this encounter Care Teams Erp Analyst Relationship Specialty Start Date End Date Alda Osborne MD [address] [facility] 110 [place] [address] PCP - General Family Medicine 09/08/22 Alda Osborne MD [address] [facility] 110 [place] [address] PCP - ACO Reach 05/25/23 05/01/24 Alda Osborne MD [address] [facility] 110 [place] [address] PCP - ACO Reach 05/09/24 06/26/24 Joan Calvo, PATI [address] [place] [address] Clinical Advocate Family Medicine 05/02/24 05/23/24 documented as of this encounter
--- OUTSIDE RECORDS SUMMARY | 2025-01-06 17:41 | XMS_ITS | Encounter Summary ---
Author Organization [facility] Address [address] [place] [address] Care Team Providers Care Demo Specialist Name Role Phone Alda Osborne MD Primary Care Provider [phone] Encounter Details Date Type Department Care Team (Late st Contact Info) Description 01/06/2025 External Result Encounter [facility] External Department Unsolicited Chi Reyes, DO 703 [facility] 150 [place] [address] Social History Tobacco Use Types Packs/Day Years [...] often do you attend chur ch or adventism services? Never 01/25/2023 Do you belong to any clubs o r organizations such as religion groups, unions, fraternal or athletic groups, or [...] Recorded Patient Health Questionnaire-2 Score 0 12/09/2024 [facility] [...] EST Office Visit [facility] 703 [facility] 150 [place] [address] Chi Reyes DO 703 [facility] 150 [place] [address] 03/10/2025 10:30 AM EST Office Visit [facility] [place] [facility] [address] [facility] 110 [place] [address] Alda Osborne MD [address] [email or web address] 110 [place] [address] documented as of this encounter Procedures Procedure Name Priority Date/Time Associated Diagnosis Comments BASIC METABOLIC PANEL Routine 01/06/2025 3:20 PM EDT documented in this encounter Results * (ABNORMAL) Basic metabolic panel (01/06/2025 3:20 PM EDT) Glucose 211(H) 70 - 100 mg/dL 01/06/2025 4:25 PM EDT [facility] Comment: Random Glucose Reference Range is dependent on time and content of last meal. Glucose of more than 200 mg/dL in a nonstressed, ambulatory subject supports the diagnosis of Diabetes Mellitus. ADA recommended reference range BUN 61(H) 7 - 25 mg/dL 01/06/2025 4:[address] [facility] CREATININE 1.71(H) 0.70 - 1.30 mg/dL 01/06/2025 4:[address] [facility] ESTIMATED GFR 40.974 01/06/2025 4:[address] [facility] Sodium 136 136 - 145 mmol/L 01/06/2025 4:[address] [facility] Potassium, Bld 6.7(HH) 3.5 - 5.1 mmol/L 01/06/2025 4:[address] [facility] Comment: Critical Result Called to and read back by: DINORAH BARGER at: 01/06/2025 16:29 by:BP Chloride 107 98 - 107 mmol/L 01/06/2025 4:[address] [facility] Carbon Dioxide 22.5 21.0 - 31.0 mmol/L 01/06/2025 4:[address] [facility] Anion Gap 13.2 6.0 - 15.0 01/06/2025 4:[address] [facility] Calcium 9.1 8.6 - 10.3 mg/dL 01/06/2025 4:[address] [facility] Other Topography unknown / Unknown 01/06/2025 3:20 PM EDT 01/06/2025 3:24 PM EDT Chi Reyes DO LAB BLOOD ORDERABLES Slime l Result [facility] 1111 [place] [address], [facility] 1111 [place] [address] documented in this encounter Visit Diagnoses Not on filedocumented in this encounter Care Teams Demo Specialist Relationship Specialty Start Date End Date Alda Osborne MD 112 [facility] 110 [place] [address] PCP - General Family Medicine 09/08/22 documented as of this encounter
--- OUTSIDE RECORDS SUMMARY | 2025-01-06 17:41 | XMS_ITS | Encounter Summary ---
Author Organization [facility] Address [address] [place] [address] Care Team Providers Care Vice President Network Development Name Role Phone Alda Osborne MD Primary Care Provider [phone] Alda Osborne MD Unavailable Joan Calvo RN Unavailable [phone] Alda Osborne MD Unavailable Encounter Details Date Type Department Care Team (Late st Contact Info) Description 02/07/2024 Abstract [facility] [place] [facility] 112 [facility] 110 [place] [address] Alda Osborne MD 112 [facility] 110 [place], [place] [id number] Social History Tobacco Use Types Packs/Day Years [...] How often do you attend chur or zoroastrian services? Never 01/25/2023 Do you belong to any clubs o r organizations such as yazidi groups, unions, fraternal or athletic groups, or [...] Recorded Patient Health Questionnaire-2 Score 0 06/14/2023 [facility] - Occupational Stress Questionnaire Answer Date [...] EST Office Visit [facility] [address] [phone] Chi Reyes DO [address] [address] 03/10/2025 10:30 AM EST Office Visit [facility] [place] [facility] [address] [facility] 110 [place] [address] Alda Osborne MD [address] [facility] 110 [place], [place] [id number] documented as of this encounter Visit Diagnoses Not on filedocumented in this encounter Care Teams Vice President Network Development Relationship Specialty Start Date End Date Alda Osborne MD [address] [facility] 110 [place] [address] PCP - General Family Medicine 09/08/22 Alda Osborne MD [address] [facility] [address] [place] [address] PCP - ACO Reach 05/25/23 05/01/24 Alda Osborne MD [address] [facility] [address] [place] [address] PCP - ACO Reach 05/09/24 06/26/24 Joan Calvo, PATI [address] [place] [address] Clinical Advocate Family Medicine 05/02/24 05/23/24 documented as of this encounter
--- OUTSIDE RECORDS SUMMARY | 2025-01-06 17:41 | XMS_ITS | Encounter Summary ---
Author Organization [facility] Address [address] [place] [address] Care Team Providers Care Office Nurse Name Role Phone Alda Osborne MD Primary Care Provider [phone] Alda Osborne MD Unavailable Joan Calvo RN Unavailable [phone] Alda Osborne MD Unavailable Encounter Details Date Type Department Care Team (Late st Contact Info) Description 04/23/[address] [place] [facility] 112 [facility] 110 [place] [address] Alda Osborne MD 112 [facility] 110 [place], [place] [phone] Social History Tobacco Use Types Packs/Day Years [...] How often do you attend chur or bahai services? Never 01/25/2023 Do you [...] and heating? Not hard at all 01/25/2023 [facility] - Occupational Stress Questionnaire Answer Date [...] EST Office Visit [facility] [address] [phone] Chi Reyes DO 703 [facility] 150 [place] [address] 03/10/2025 10:30 AM EST Office Visit [facility] [place] [facility] [address] [facility] 110 [place] [address] Alda Osborne MD [address] [facility] 110 [place] [address] documented as of this encounter Visit Diagnoses Not on filedocumented in this encounter Care Teams Office Nurse Relationship Specialty Start Date End Date Alda Osborne MD [address] [facility] 110 [place] [address] PCP - General Family Medicine 09/08/22 Alda Osborne MD [address] [facility] 110 [place], [place] [phone] PCP - ACO Reach 05/25/23 05/01/24 Alda Osborne MD [address] [facility] 110 [place], [place] [phone] PCP - ACO Reach 05/09/24 06/26/24 Joan Calvo, RN [address] [place] [address] Clinical Advocate Family Medicine 05/02/24 05/23/24 documented as of this encounter
--- OUTSIDE RECORDS SUMMARY | 2025-01-06 17:41 | XMS_ITS | Encounter Summary ---
Author Organization [facility] Address [address] [place] [address] Care Team Providers Care Novelties Sales Representative Name Role Phone Alda Osborne MD Primary Care Provider [phone] Alda Osborne MD Unavailable Joan Calvo RN Unavailable [phone] Alda Osborne MD Unavailable Encounter Details Date Type Department Care Team (Late st Contact Info) Description 04/23/2023 Abstract [facility] [place] [facility] 112 [facility] 110 [place] [address] Alda Osborne MD 112 [facility] 110 [place], [place] [phone] Social History Tobacco Use Types Packs/Day Years [...] How often do you attend chur or samaritan services? Never 01/25/2023 Do you belong to any clubs o r organizations such as sabianist groups, unions, fraternal or athletic groups, or [...] at all 01/25/2023 [facility] - Occupational Stress Questionnaire Answer Date [...] EST Office Visit [facility] [address] [phone] Chi Reyes DO 703 [facility] 150 [place] [address] 03/10/2025 10:30 AM EST Office Visit [facility] [place] [facility] [address] [facility] 110 [place] [address] Alda Osborne MD [address] [facility] 110 [place] [address] documented as of this encounter Visit Diagnoses Not on filedocumented in this encounter Care Teams Novelties Sales Representative Relationship Specialty Start Date End Date Alda sOborne MD [address] [facility] 110 [place] [address] PCP - General Family Medicine 09/08/22 Alda Osborne MD [address] [facility] 110 [place], [place] [phone] PCP - ACO Reach 05/25/23 05/01/24 Alda Osborne MD [address] [facility] 110 [place], [place] [phone] PCP - ACO Reach 05/09/24 06/26/24 Joan Calvo, RN [address] [place] [address] Clinical Advocate Family Medicine 05/02/24 05/23/24 documented as of this encounter
--- OUTSIDE RECORDS SUMMARY | 2025-01-06 17:41 | XMS_ITS | Encounter Summary ---
Author Organization [facility] Address [address] [place] [address] Care Team Providers Care Supervisor Air Conditioning Installer Name Role Phone Alda Osborne MD Primary Care Provider [phone] Alda Osborne MD Unavailable Joan Calvo RN Unavailable [phone] Alda Osborne MD Unavailable Encounter Details Date Type Department Care Team (Late st Contact Info) Description 04/23/2023 Abstract [facility] [place] [facility] 112 [facility] 110 [place] [address] Alda Osborne MD 112 [facility] 110 [place], [place] [address] Social History Tobacco Use Types Packs/Day Years [...] How often do you attend chur or rastafari services? Never 01/25/2023 Do you belong to any clubs o r organizations such as congregation groups, unions, fraternal or athletic groups, or [...] hard at all 01/25/2023 [facility] - Occupational Stress Questionnaire Answer [...] EST Office Visit [facility] [address] [phone] Chi Reyes DO 703 [facility] 150 [place] [address] 03/10/2025 10:30 AM EST Office Visit [facility] [place] [facility] [address] [facility] 110 [place] [address] Alda Osborne MD [address] [facility] 110 [place] [address] documented as of this encounter Visit Diagnoses Not on filedocumented in this encounter Care Teams Supervisor Air Conditioning Installer Relationship Specialty Start Date End Date Alda Osborne MD [address] [facility] 110 [place] [address] PCP - General Family Medicine 09/08/22 Alda Osborne MD [address] [facility] 110 [place], [place] [phone] PCP - ACO Reach 05/25/23 05/01/24 Alda Osborne MD [address] [facility] 110 [place], [place] [phone] PCP - ACO Reach 05/09/24 06/26/24 Joan Calvo, RN [address] [place] [address] Clinical Advocate Family Medicine 05/02/24 05/23/24 documented as of this encounter
--- OUTSIDE RECORDS SUMMARY | 2025-01-06 17:41 | XMS_ITS | Encounter Summary ---
Author Organization [facility] Address [address] [place] [address] Care Team Providers Care Applications Programmer Analyst Name Role Phone Alda Osborne MD Primary Care Provider [phone] Encounter Details Date Type Department Care Team (Late st Contact Info) Description 01/06/2025 External Result Encounter [facility] External Department Unsolicited Chi Reyes, DO 703 [facility] 150 [place] [address] Social History Tobacco Use Types Packs/Day Years [...] often do you attend chur ch or restorationist services? Never 01/25/2023 Do you belong to any clubs o r organizations such as anglican groups, unions, fraternal or athletic groups, or [...] Recorded Patient Health Questionnaire-2 Score 0 12/09/2024 [facility] of Occupat ional Health - Occupational [...] EST Office Visit [facility] 703 [facility] 150 [place] [address] Chi Reyes DO 703 [facility] 150 [place] [address] 03/10/2025 10:30 AM EST Office Visit [facility] [place] [facility] [address] [facility] 110 [place] [address] Alda Osborne MD 112 [facility] 110 [place] [address] documented as of this encounter Procedures Procedure Name Priority Date/Time Associated Diagnosis Comments CBC WITH AUTO DIFFERENTIAL Routine 01/06/2025 3:20 PM EDT documented in this encounter Results * (ABNORMAL) CBC auto differential (01/06/2025 3:20 PM EDT) WBC 7.4 4.1 - 10.5 [CFU]/mL 01/06/2025 3:33 PM EDT [facility] UNCORRECTED WHITE BLOOD COUNT 7.4 4.1 - 10.5 10*3/uL 01/06/2025 3:33 PM EDT [facility] RBC 3.74(L) 3.90 - 5.60 10*6/uL 01/06/2025 3:33 PM EDT [facility] HEMOGLOBIN 11.7(L) 13.0 - 17.0 g/dL 01/06/2025 3:33 PM EDT [facility] HEMATOCRIT 35.1(L) 38.8 - 50.0 % 01/06/2025 3:33 PM EDT [facility] MCV 93.9 83.5 - 101 fL 01/06/2025 3:33 PM EDT [facility] MCH 31.4 27.5 - 35.2 pg 01/06/2025 3:33 PM EDT [facility] MCHC 33.4 32.5 - 35.6 g/dL 01/06/2025 3:33 PM EDT [facility] RED CELL DISTRIBUTION WIDTH, RDW 13.5 12.0 - 14.8 % 01/06/2025 3:33 PM EDT [facility] PLATELET COUNT 231 150 - 450 10*3/uL 01/06/2025 3:33 PM EDT [facility] MEAN PLATELET VOLUME, MPV 8.1 6.6 - 10.1 fL 01/06/2025 3:33 PM EDT [facility] NEUTROPHILS, % 74.3 . % 01/06/2025 3:33 PM EDT [facility] LYMPHOCYTES, % 16.2 . % 01/06/2025 3:33 PM EDT [facility] MONOCYTE/MACROPHA GE, % 5.4 . % 01/06/2025 3:33 PM EDT [facility] EOSINOPHILS, % 3.5 . % 01/06/2025 3:33 PM EDT [facility] BASOPHILS, % 0.6 . % 01/06/2025 3:33 PM EDT [facility] NRBC 0.0 0 - 0.5 /100{WBC} 01/06/2025 3:33 PM EDT [facility] NEUTROPHILS 5.5 1.8 - 7.7 10*3/uL 01/06/2025 3:33 PM EDT [facility] LYMPHOCYTES 1.2 1.00 - 4.8 10*3/uL 01/06/2025 3:33 PM EDT [facility] MONOCYTES 0.4 0.0 - 0.8 10*3/uL 01/06/2025 3:33 PM EDT [facility] EOSINOPHILS 0.3 0.0 - 0.45 10*3/uL 01/06/2025 3:33 PM EDT [facility] BASOPHILS 0.0 0.0 - 0.2 10*3/uL 01/06/2025 3:33 PM EDT [facility] Blood (Blood) 01/06/2025 3:2 0 PM EDT 01/06/2025 3:24 PM EDT Chi Reyes DO LAB BLOOD ORDERABLES Slime l Result Performing Organization Address [facility] Co de Phone Number [facility] 1111 [place] [address], [facility] 1111 [place] [address] documented in this encounter Visit Diagnoses Not on filedocumented in this encounter Care Teams Applications Programmer Analyst Relationship Specialty Start Date End Date Alda Osborne MD 112 [facility] 110 [place] [address] PCP - General Family Medicine 09/08/22 documented as of this encounter
--- OUTSIDE RECORDS SUMMARY | 2025-01-06 17:41 | XMS_ITS | Clinical Summary ---
Author Organization [facility] Healthcare Address [address] [place] [address] Care Team Providers Care Telecom Engineer Name Role Phone Alda Osborne MD Primary Care Provider Allergies Active Allergy Reactions Criticality Noted Date Comments Zolpidem Other High 12/02/2024 Fall, overly sedated Medications aspirin 81 MG chewable tablet Chew 81 mg 1 (one) time Active Pjgyokb-Mwvwenpkmvg-Ih rmoterol (Breztri Aerosphere) 160-9-4.8 MCG/ACT aerosol Inhale 2 puffs every 12 (twelve) hours 2021 Active hydrOXYzine HCl (Atarax) 25 MG tablet Take 25 mg by mouth in the morning and 25 mg at noon and 25 mg in the evening and 25 mg before bedtime. 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 16 g 3 2023 Active lisinopril 20 MG tabletIndications:Esse ntial hypertension, benign Take 1 tablet (20 mg) by mouth Daily 100 tablet 3 2024 Active carvedilol (Coreg) 6.25 MG tabletIndications:Esse ntial hypertension, benign Take 1 tablet (6.25 mg) by mouth in the morning and 1 tablet (6.25 mg) before bedtime. 200 tablet 3 2024 Active metFORMIN (Glucophage) 1000 MG tabletIndications:Type 2 diabetes mellitus without complication, unspecified whether correction insulin use (HCC) Take 1 tablet (1,000 mg) by mouth in the morning and 1 tablet (1,000 mg) in the evening. Take with meals. 180 tablet 3 08/04 Active pravastatin (Pravachol) 40 MG tabletIndications:Pure hypercholesterolemia Take 1 tablet (40 mg) by mouth Daily 100 tablet 3 2024 Active ondansetron ODT (Zofran-ODT) 4 MG disintegrating tablet DISSOLVE 1 tablet on top OF tongue EVERY 6 HOURS NEEDED FOR NAUSEA AND VOMITING 2024 Active insulin glargine (Lantus SoloStar) 100 UNIT/ML penIndications:Type 2 diabetes mellitus without complication, without long-term current use of insulin (HCC) Inject 10 Units under the skin at bedtime 12/09 Active zolpidem (Ambien) 10 MG tablet 10 mg 2024 Active Insulin Lispro (HumaLOG) 100 UNIT/ML solution Inject under the skin 2024 Active insulin glargine (Lantus SoloStar) 100 UNIT/ML penIndications:Type 2 diabetes mellitus without complication, without long-term current use of insulin (HCC) Inject 8 Units under the skin at bedtime 7.2 mL 3 12/09 Discontinued( Reorder) insulin lispro protamine-insulin lispro (HumaLOG Mix 75-25) (75-25) 100 UNIT/ML injectionIndications:T ype 2 diabetes mellitus without complication, unspecified whether terminologist insulin use (HCC),Type 2 diabetes mellitus with stage 3a chronic kidney disease, with long-term current use of insulin (HCC) Inject 10 Units under the skin in the morning and 10 Units in the evening. Inject with meals. 3 mL 12 05/12/ 2025 09/16 /2025 Discontinued( Therapy completed) zolpidem (Ambien) 10 MG tabletIndications:Prim abraham insomnia Take 1 tablet (10 mg) by mouth as needed at bedtime for sleep 30 tablet 12/09 Discontinued( Side effects) ciprofloxacin (Cipro) 500 MG tabletIndications:Elev ated PSA Take 1 tablet (500 mg) by mouth in the morning and 1 tablet (500 mg) before bedtime. Do all this for 14 days. 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 Reyes on 12/18/2024 Unintentional weight loss of 10% body weight within 6 months 09/17/2023 Assessment & Plan (08/04/2024 1:35 PM EDT): Patient has refused Cologuard and CT scan of chest XR 03/2023 was negative for Mass PSA is elevated possible Prostate Cancer. Referral made Increase Calories Assessment & Plan (09/17/2023 1:56 PM EDT): Last Colonoscopy 2013 Last CXR was in March and No acute disease Type 2 diabetes mellitus wit h stage 3a chronic kidney disease, with long-term current use of insulin 06/14/2023 Assessment & Plan (12/09/2024 11:28 AM EDT): No Tobacco use Follow ADA 1800 [...] and importance of healthy diet and exercise. Avoid NSAIDs such as Ibuprofen, Motrin, Naprosyn. Increase fluids. Assessment & Plan (08/04/2024 1:24 PM EDT): [...] sugar elevations. Type 2 diabetes mellitus without complications 0 09/08/2022 Assessment & Plan (12/09/2024 11:22 AM EDT): A1c is NOW 7.6 F/U in 3 months Assessment & Plan (11/20/2022 1:52 PM EDT): [...] smoked daily. Discussed potential health risks of correction smoking. Patient voiced understanding. Benefits of cessation, both health and financial, were reviewed. 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 Otitis externa 09/08/2022 Assessment & Plan (04/19/2023 [...] Problem Noted Date Diagnosed Date Resolved Date Routine general medical exam ination at health care facility 06/14/2023 12/02/2024 Assessment & Plan (08/04/2024 1:25 PM EDT): [...] Ultrasound of Aorta to screen for Anuerysm Severe acute respiratory syn drome coronavirus 2 (SARS-CoV-2) detected 09/08/2022 09/08/2022 Chronic obstructive pulmonar y disease with (acute) lower respiratory infection 09/08/2022 09/0 11/2024 Chronic obstructive pulmonar y disease with acute exacerbation 09/08/2022 12/02/2024 Encounters Date Type Department Care Team Description 01/06/2025 Telephone [facility] [address] [place] [phone] Dinorah Logan LPN 01/06/2025 External Result Encounter [facility] External Department Unsolicited Chi Reyes, DO 01/06/2025 External Result Encounter [facility] External Department Unsolicited Chi Reyes, DO 12/26/2024 [facility] [address] [facility] [address] [place] [address] Alda Osborne MD 12/25/2024 Abstract [facility] [place] [facility] [address] [facility] [address] [place] [address] Alda Osborne MD 12/18/2024 2:30 PM EDT Consult [facility] [address] [place] [address] [place] [address] Chi Reyes DO Inguinal hernia of left side without obstruction or gangrene 12/18/2024 Travel 12/17/2024 Travel 12/12/2024 Travel 12/11/2024 Travel 12/09/2024 11:00 AM EDT Office Visit [facility] [place] [facility] [address] [facility] [address] [place] [address] Alda Osborne MD Elevated PSA (Primary Dx); Type 2 diabetes mellitus with stage 3a chronic kidney disease, with long-term current use of insulin (HCC); Type 2 diabetes mellitus without complication, without long-term current use of insulin (HCC); Inguinal hernia of left side without obstruction or gangrene 12/09/2024 Bamboo flowsheet [facility] [place] [facility] [address] [facility] [address] [place] [address] Alda Osborne MD 12/09/2024 Travel 12/08/2024 Results Follow-Up [facility] [place] [facility] [address] [facility] [address] [place] [address] Alda Osborne MD PSA, total and free 12/05/2024 Telephone [facility] [place] [facility] [address] [facility] [address] [place] [address] Agnieszka Humphreys PA Results 12/03/2024 Abstract [facility] [place] [facility] [address] [facility] [address] [place] [address] Alda Osborne MD 12/02/2024 10:00 AM EDT Office Visit [facility] [place] [facility] [address] [facility] [address] [place] [address] Agnieszka Humphreys PA Fall, subsequent encounter (Primary Dx); Chronic kidney disease, stage 3a ([facility]-HCC); Nocturia; Primary insomnia; Elevated PSA; Hyperkalemia; Smoker 12/02/2024 Bamboo flowsheet [facility] [place] [facility] [address] [facility] [address] [place] [address] Agnieszka Humphreys PA 12/02/2024 Travel 11/25/2024 10:30 AM EDT [facility] [place] [facility] [address] [facility] [address] [place] [address] Alda Osborne MD Inguinal hernia of left side without obstruction or gangrene (Primary Dx); Primary insomnia; Elevated PSA 11/25/2024 Travel from Last 3 Months Immunizations Immunization Administration [...] preservative free, adsorbed 12/11/2012 Zoster, live 07/30/2015 Family History Medical History Relation Name Comments Breast cancer Neg Hx Colon cancer Neg Hx Ovarian cancer Neg Hx Pancreatic cancer Neg Hx Relation Name Status Comments Brother none Father Mother Sister 2 sisters Social History Tobacco Use Types Packs/Day Years [...] How often do you attend chur or temple services? Never 01/25/2023 Do you belong to any clubs o r organizations such as mormonism groups, unions, fraternal or athletic groups, or [...] Recorded Patient Health Questionnaire-2 Score 0 12/09/2024 [facility] - Occupational [...] place to sleep or slept in a long-term (including now)? No 01/25/2023 Sex and Gender Information Value Date Recorded Sex Assigned at Not on file Legal Sex Male 6:46 PM EDT Gender Identity Not on file Sexual Orientation Not on file Last Filed Vital Signs Vital Sign Reading Time Taken Comments Blood Pressure 122/60 12/09/2024 10:58 AM EDT Pulse 86 12/09/2024 10:58 AM EDT Temperature - - Respiratory Rate 16 12/02/2024 10:05 AM EDT Oxygen Saturation 96% 12/09/2024 10:58 AM EDT Inhaled Oxygen Concentration - - Weight 44 kg (97 lb) 12/18/2024 2:35 PM EDT Height 170.2 cm (5' 7 ) 12/18/2024 2:35 PM EDT Body Mass Index 15.19 12/18/2024 2:35 PM EDT Plan of Treatment Upcoming Encounters Date Type Department Care Team (Late st Contact Info) Description 01/29/2025 2:15 PM EST Office Visit [facility] [address] [facility] [address] [place] [address] Chi Reyes DO [address] [facility] [address] [place] [address] 03/10/2025 10:30 AM EST Office Visit [facility] [place] [address] [facility] [address] [place] [phone] Alda Osborne MD 112 [facility] 110 [place], [place] [id number] Health Maintenance Due Date Last Done Comments Diabetes: Retinopathy Screening 09/17/2020 9 Influenza Vaccine (#1) 2024 4, 02/06/2023, 02/02/2022, Additional history exists Diabetes: Hemoglobin A1C 03/10/2025 025, 07/25/2024, 02/05/2024, Additional history exists Diabetes: Urine Protein Screening 07/25/2025 07/25/2024, 07/09/2023, 06/20/2023, Additional history exists Medicare Annual Wellness (AWV) 08/04/2025 08/04/2024 , 06/14/2023 Colonoscopy Discontinued 02/12/2014, 02/12/2014 Colorectal Cancer Screening Discontinued Pneumococcal Vaccine: 65+ Years Completed 01/11/2017, 08/02/2015, 07/30/2015 CT Colonography Discontinued FIT-DNA Discontinued FIT Discontinued FOBT Discontinued Sigmoidoscopy Discontinued Procedures Procedure Name Priority Date/Time Associated Diagnosis Comments BASIC METABOLIC PANEL Routine 01/06/2025 3:20 PM EDT CBC WITH AUTO DIFFERENTIAL Routine 01/06/2025 3:20 PM EDT POCT GLYCATED HEMOGLOBIN, TOTAL Routine 12/09/2024 11:16 AM EDT Type 2 diabetes mellitus with stage 3a chronic kidney disease, with long-term current use of insulin (HCC) BASIC METABOLIC PANEL Routine 12/04/2024 1:28 PM EDT Chronic kidney disease, stage 3a (CMS-HCC) Hyperkalemia PSA, TOTAL AND FREE Routine 12/04/2024 1 :27 PM EDT Elevated PSA MICROALBUMIN / CREATININE URINE RATIO Routine 07/25/2024 9:36 AM EDT Type 2 diabetes mellitus with stage 3a chronic kidney disease, with long-term current use of insulin ([facility]) Medicare annual wellness visit, subsequent COLOR FUNDUS PHOTOGRAPHY - OU - BOTH EYES Routine 09/17/2018 12:00 PM EDT Type 2 diabetes mellitus without complications ([facility]) Encounter for screening for eye and ear disorders COLONOSCOPY Routine 02/12/2014 12:00 PM EST from Last 3 Months or Most Recently Relevant to Health Maintenance Results * (ABNORMAL) CBC auto differential (01/06/2025 3:20 PM EDT) WBC 7.4 4.1 - 10.5 [CFU]/mL 01/06/2025 3:33 PM EDT [facility] UNCORRECTED WHITE BLOOD COUNT 7.4 4.1 - 10.5 10*3/uL 01/06/2025 3:33 PM EDT [facility] RBC 3.74(L) 3.90 - 5.60 10*6/uL 01/06/2025 3:33 PM EDT [facility] HEMOGLOBIN 11.7(L) 13.0 - 17.0 g/dL 01/06/2025 3:33 PM EDT [facility] HEMATOCRIT 35.1(L) 38.8 - 50.0 % 01/06/2025 3:33 PM EDT [facility] MCV 93.9 83.5 - 101 fL 01/06/2025 3:33 PM EDT [facility] MCH 31.4 27.5 - 35.2 pg 01/06/2025 3:33 PM EDT [facility] MCHC 33.4 32.5 - 35.6 g/dL 01/06/2025 3:33 PM EDT [facility] RED CELL DISTRIBUTION WIDTH, RDW 13.5 12.0 - 14.8 % 01/06/2025 3:33 PM EDT [facility] PLATELET COUNT 231 150 - 450 10*3/uL 01/06/2025 3:33 PM EDT [facility] MEAN PLATELET VOLUME, MPV 8.1 6.6 - 10.1 fL 01/06/2025 3:33 PM EDT [facility] NEUTROPHILS, % 74.3 . % 01/06/2025 3:33 PM EDT [facility] LYMPHOCYTES, % 16.2 . % 01/06/2025 3:33 PM EDT [facility] MONOCYTE/MACROPHA GE, % 5.4 . % 01/06/2025 3:33 PM EDT [facility] EOSINOPHILS, % 3.5 . % 01/06/2025 3:33 PM EDT [facility] BASOPHILS, % 0.6 . % 01/06/2025 3:33 PM EDT [facility] NRBC 0.0 0 - 0.5 /100{WBC} 01/06/2025 3:33 PM EDT [facility] NEUTROPHILS 5.5 1.8 - 7.7 10*3/uL 01/06/2025 3:33 PM EDT [facility] LYMPHOCYTES 1.2 1.00 - 4.8 10*3/uL 01/06/2025 3:33 PM EDT [facility] MONOCYTES 0.4 0.0 - 0.8 10*3/uL 01/06/2025 3:33 PM EDT [facility] EOSINOPHILS 0.3 0.0 - 0.45 10*3/uL 01/06/2025 3:33 PM EDT [facility] BASOPHILS 0.0 0.0 - 0.2 10*3/uL 01/06/2025 3:33 PM EDT [facility] Blood (Blood) 01/06/2025 3:2 0 PM EDT 01/06/2025 3:24 PM EDT Chi Reyes DO LAB BLOOD ORDERABLES Slime hope Result Performing Organization Address [facility]/State/ZIP Co de Phone Number [facility] [address] [place] [address], [facility] [address] [place] [address] * (ABNORMAL) Basic metabolic panel (01/06/2025 3:20 PM EDT) Only the most recent of2 resultswithin the time period is included. Glucose 211(H) 70 - 100 mg/dL 01/06/2025 4:25 PM EDT [facility] Comment: Random Glucose Reference Range is dependent on time and content of last meal. Glucose of more than 200 mg/dL in a nonstressed, ambulatory subject supports the diagnosis of Diabetes Mellitus. ADA recommended reference range BUN 61(H) 7 - 25 mg/dL 01/06/2025 4:25 PM EDT [facility] CREATININE 1.71(H) 0.70 - 1.30 mg/dL 01/06/2025 4:25 PM EDT [facility] ESTIMATED GFR 40.974 01/06/2025 4:25 PM EDT [facility] Sodium 136 136 - 145 mmol/L 01/06/2025 4:25 PM EDT [facility] Potassium, Bld 6.7(HH) 3.5 - 5.1 mmol/L 01/06/2025 4:25 PM EDT [facility] Comment: Critical Result Called to and read back by: DINORAH LOGAN at: 01/06/2025 16:29 by:BP Chloride 107 98 - 107 mmol/L 01/06/2025 4:25 PM EDT [facility] Carbon Dioxide 22.5 21.0 - 31.0 mmol/L 01/06/2025 4:25 PM EDT [facility] Anion Gap 13.2 6.0 - 15.0 01/06/2025 4:25 PM EDT [facility] Calcium 9.1 8.6 - 10.3 mg/dL 01/06/2025 4:25 PM EDT [facility] Other Topography unknown / Unknown 01/06/2025 3:20 PM EDT 01/06/2025 3:24 PM EDT us Chi Reyes DO LAB BLOOD ORDERABLES Slime l Result [facility] [address] [place] [address], [facility] [address] [place] [address] * POCT Glycated hemoglobin, total (12/09/2024 11:16 AM EDT) Hemoglobin A1C 7.6 Blood 12/09/2024 11:1 6 AM EDT Alda Osborne MD POINT OF CARE TEST ENTER/EDIT OR DERABLES Final Result * (ABNORMAL) PSA, total and free (12/04/2024 1:27 PM EDT) PSA, TOTAL 31.0(H) < OR = 4.0 ng/mL [facility] PSA, FREE 4.6 ng/mL [facility] PSA, % FREE NOT CALCULATED >25 % (calc) [facility] Comment: PSA(ng/mL) Free PSA(%) Estimated(x) Probability of Cancer(as%) 0-2.5 (*) Approx. 1 2.6-4.0(1) 0-27(2) 24(3) 4.1-10(4) 0-10 56 11-15 28 16-20 20 21-25 16 >or =26 8 >10(+) N/A >50 References:(1)Martinez et al.:Urology 60: 469-474 (2001) (2)Kvngona et al.:J.Urol 168: 922-925 (2001) Free PSA(%) Sensitivity(%) Specificity(%) < or = 25 85 19 < or = 30 93 9 (3)Catalona et al.:ARMANDO 277: 5760-4619 (1996) (4)Catalona et al.:ARMANDO 279: 0762-1343 (1997) (x)These estimates vary with age, ethnicity, family history and DWIGHT results. (*)The diagnostic usefulness of % Free PSA has not been established in patients with total PSA below 2.6 ng/mL (+)In men with PSA above 10 ng/mL, prostate cancer risk is determined by total PSA alone. The Total PSA value from this assay system is standardized against the equimolar PSA standard. The test result will be approximately 20% higher when compared to the WHO-standardized Total PSA (Siemens assay). Comparison of serial PSA results should be interpreted with this fact in mind. PSA was performed using the Evaristo Rich[place] Immunoassay method. Values obtained from different assay methods cannot be used interchangeably. PSA levels, regardless of value, should not be interpreted as absolute evidence of the presence or absence of disease. Blood Venous blood specimen / Unknown 12/04/2024 1:27 PM EDT 12/04/2024 1:27 PM EDT Narrative Resulting Agency Comment Performing Organization Information Site ID: QPT Name: [employer] [facility] Address: [address] [place] [address], [address] [place] [phone] Director: Vito Fragoso MD Alda Osborne MD LAB BLOOD ORDERABLES Final Resul t Performing Organization Address [facility] de Phone Number [facility] * Microalbumin / creatinine urine ratio (07/25/2024 [...] Performing Organization Information Site ID: QPT Name: [employer] [facility] Address: [address] [place] [address], [address] [place] [phone] Director: Vito Fragoso MD Alda Osborne MD LAB URINE ORDERABLES Final Resul t Performing Organization Address City/[facility] [[email or web address]] Co de Phone Number [facility] * Color Fundus Photography - OU - Both Eyes (09/17/2018 12:00 PM EDT) Anatomical Region Laterality Modality Head Fundus Photograp hy 09/17/2018 12:0 0 PM EDT Narrative 09/17/2018 12:00 PM EDT PERFORMED AT [facility] LOCATION:[id number] [facility] Procedure Note CONVERSION, GENERIC - 08/09/2022 PERFORMED AT [facility] LOCATION:[id number] NDR Alda Osborne MD OPHTH PHOTOGRAPHY Final Result * Colonoscopy (02/12/2014 12:00 PM EST) Anatomical Region Laterality Modality Endoscopy 02/12/2014 12:0 0 PM EST Narrative 02/12/2014 12:00 PM EST PERFORMED AT [facility] LOCATION:[id number] Normal Procedure Note CONVERSION, GENERIC - 08/10/2022 PERFORMED AT [facility] LOCATION:[id number] Normal Alda Osborne MD ENDOSCOPY PROCEDURE ORDERABLES F inal Result from Last 3 Months or Most Recently Relevant to Health Maintenance Insurance [employer] Care Teams Telecom Engineer Relationship Specialty Start Date End Date Alda Osborne MD [address] [facility] [address] [place] [address] PCP - General Family Medicine 09/08/22
--- OUTSIDE RECORDS SUMMARY | 2025-01-06 17:42 | XMS_ITS | Encounter Summary ---
Author Organization [facility] Address [address] [place] [place] [address] Care Team Providers Care Thread Separator Name Role Phone Alda Osborne MD Primary Care Provider Alda Osborne MD Unavailable Joan Calvo RN Unavailable Alda Osborne MD Unavailable Encounter Details Date Type Department Care Team (Late Contact Info) Description 12/06/2022 Abstract [facility] [place] [facility] [address] [facility] 110 [place] [address] Alda Osborne MD 112 [facility] 110 [place], [place] [id number] Social History Tobacco Use Types Packs/Day Years [...] EST Office Visit [facility] [address] [facility] [address] [place] [id number] Chi Reyes, DO 703 [facility] [address] [place] [address] 03/10/2025 10:30 AM EST Office Visit [facility] [place] [facility] [address] [facility] [address] [place] [address] Alda Osborne MD [address] [facility] [address] [place] [address] documented as of this encounter Visit Diagnoses Not on filedocumented in this encounter Care Teams Thread Separator Relationship Specialty Start Date End Date Alda Osborne MD [address] [facility] [address] [place] [address] PCP - General Family Medicine 09/08/22 Alda Osborne MD [address] [facility] [address] [place] [address] PCP - ACO Reach 05/25/23 05/01/24 Alda Osborne MD [address] [facility] [address] [place] [address] PCP - ACO Reach 05/09/24 06/26/24 Joan Calvo, RN [address] [place], [place] [phone] [facility] 05/02/24 05/23/24 documented as of this encounter
--- OUTSIDE RECORDS SUMMARY | 2025-01-06 17:42 | XMS_ITS | Encounter Summary ---
Author Organization [facility] Address [address] [place] [address] Care Team Providers Care Poultry Debeaker Name Role Phone Alda Osborne MD Primary Care Provider [phone] Alda Osborne MD Unavailable Joan Calvo RN Unavailable [phone] Alda Osborne MD Unavailable Encounter Details Date Type Department Care Team (Late st Contact Info) Description 02/07/2023 Abstract [facility] [place] [facility] 112 [facility] 110 [place] [address] Alda Osborne MD 112 [facility] 110 [place], [place] [id number] Social History Tobacco Use Types Packs/Day Years [...] and heating? Not hard at all 01/25/2023 [facility] - Occupational Stress Questionnaire Answer Date Recorded [...] EST Office Visit [facility] [address] [phone] Chi Reyes DO 703 [facility] 150 [place] [address] 03/10/2025 10:30 AM EST Office Visit [facility] [place] [address] [facility] 110 [place] [address] Alda Osborne MD [address] [facility] [address] [place] [address] documented as of this encounter Visit Diagnoses Not on filedocumented in this encounter Care Teams Poultry Debeaker Relationship Specialty Start Date End Date Alda Osborne MD [address] [facility] [address] [place] [address] PCP - General Family Medicine 09/08/22 Alda Osborne MD [address] [place] 110 [place], [place] [phone] PCP - ACO Reach 05/25/23 05/01/24 Alda Osborne MD [address] [place] 110 [place], [place] [phone] PCP - ACO Reach 05/09/24 06/26/24 Joan Calvo, RN [address] [place] [address] Clinical Advocate Family Medicine 05/02/24 05/23/24 documented as of this encounter
--- OUTSIDE RECORDS SUMMARY | 2025-01-06 17:42 | XMS_ITS | Encounter Summary ---
Author Organization [facility] Address [address] [facility] [place] [address] Care Team Providers Care Material Engineer Name Role Phone Alda Osborne MD Primary Care Provider [phone] Alda Osborne MD Unavailable Joan Calvo RN Unavailable [phone] Alda Osborne MD Unavailable Encounter Details Date Type Department Care Team (Late st Contact Info) Description 04/23/2023 Orders Only [facility] [address] [place] 110 [place] [phone] A, Unknown Practice [address] [phone] Social History Tobacco Use Types Packs/Day Years [...] often do you attend chur ch or episcopalian services? Never 01/25/2023 Do you belong to [...] EST Office Visit [facility] [address] [phone] Chi Reyes DO 703 [facility] 150 [place] [address] 03/10/2025 10:30 AM EST Office Visit [facility] [place] [address] [facility] 110 [place] [address] Alda Osborne MD 112 [facility] 110 [place] [address] documented as of this encounter Procedures Procedure [...] on filedocumented in this encounter Care Teams Material Engineer Relationship Specialty Start Date End Date Alda Osborne MD [address] [facility] 110 [place] [address] PCP - General Family Medicine 09/08/22 Alda Osborne MD [address] [facility] 110 [place] [address] PCP - ACO Reach 05/25/23 05/01/24 Alda Osborne MD [address] [facility] 110 [place] [address] PCP - ACO Reach 05/09/24 06/26/24 Joan Calvo, PATI [address] [place] [address] Clinical Advocate Family Medicine 05/02/24 05/23/24 documented as of this encounter
--- OUTSIDE RECORDS SUMMARY | 2025-01-06 17:42 | XMS_ITS | Encounter Summary ---
Author Organization [facility] Address [address] [place] [address] Care Team Providers Care Storage Worker Name Role Phone Alda Osborne MD Primary Care Provider [phone] Alda Osborne MD Unavailable Joan Calvo RN Unavailable [phone] Alda Osborne MD Unavailable Encounter Details Date Type Department Care Team (Late st Contact Info) Description 10/31/2022 Orders Only [facility] [address] [place] 110 [place] [address] A, Unknown Practice [address] [place], [place] [phone] Social History Tobacco Use Types Packs/Day Years [...] EST Office Visit [facility] 703 [facility] [place] 150 [place] [phone] Chi Reyes DO [address] [place] 150 [place] [address] 03/10/2025 10:30 AM EST Office Visit [facility] [address] [place] [address] [place] [address] Alda Osborne MD [address] [address] [place] [address] documented as of this encounter Procedures Procedure Name Priority Date/Time Associated Diagnosis Comments ELECTROCARDIOGRAM REPORT Routine 023 10:16 AM EDT documented in this encounter Results * Electrocardiogram Report (10/29/2022 10:16 AM EDT) us Unknown Practice A IN CLINIC/BEDSIDE ORDERABLES Final Result documented in this encounter Visit Diagnoses Not on filedocumented in this encounter Care Teams Storage Worker Relationship Specialty Start Date End Date Alda Osborne MD [address] [place] [address] PCP - General Family Medicine 09/08/22 Alda Osborne MD [address] [place] [address] PCP - ACO Reach 05/25/23 05/01/24 Alda Osborne MD [address] [place] [address] PCP - ACO Reach 05/09/24 06/26/24 Joan Calvo, PATI [address] [place], [place] [phone] Clinical Advocate Family Medicine 05/02/24 05/23/24 documented as of this encounter
--- OUTSIDE RECORDS SUMMARY | 2025-01-06 17:42 | XMS_ITS | Encounter Summary ---
Author Organization [facility] Address [address] [facility] [place] [address] Care Team Providers Care Kiln Burner Name Role Phone Alda Osborne MD Primary Care Provider [phone] Alda Osborne MD Unavailable Joan Calvo RN Unavailable [phone] Alda Osborne MD Unavailable Encounter Details Date Type Department Care Team (Late st Contact Info) Description 04/04/2023 Abstract [facility] [place] [facility] 112 [facility] 110 [place] [address] Alda Osborne MD 112 [facility] 110 [place], [place] [phone] Social History Tobacco Use Types Packs/Day Years [...] How often do you attend chur or jew services? Never 01/25/2023 Do you belong to any clubs o r organizations such as cheondoism groups, unions, fraternal or athletic groups, or [...] hard at all 01/25/2023 [facility] - Occupational Stress Questionnaire Answer [...] EST Office Visit [facility] [address] [phone] Chi Reyes DO 703 [facility] 150 [place] [address] 03/10/2025 10:30 AM EST Office Visit [facility] [place] [address] [facility] 110 [place] [address] Alda Osborne MD [address] [facility] 110 [place] [address] documented as of this encounter Visit Diagnoses Not on filedocumented in this encounter Care Teams Kiln Burner Relationship Specialty Start Date End Date Alda Osborne MD [address] [facility] 110 [place] [address] PCP - General Family Medicine 09/08/22 Alda Osborne MD [address] [place] 110 [place], [place] [phone] PCP - ACO Reach 05/25/23 05/01/24 Alda sOborne MD [address] [place] 110 [place], [place] [phone] PCP - ACO Reach 05/09/24 06/26/24 Joan Calvo, RN [address] [place] [address] Clinical Advocate Family Medicine 05/02/24 05/23/24 documented as of this encounter
--- OUTSIDE RECORDS SUMMARY | 2025-01-06 17:42 | XMS_ITS | Encounter Summary ---
Author Organization [facility] Address [address] [facility] [place] [address] Care Team Providers Care Sheet Metal Shop Foreman Name Role Phone Alda Osborne MD Primary Care Provider [phone] Alda Osborne MD Unavailable Joan Calvo RN Unavailable Alda Osborne MD Unavailable Encounter Details Date Type Department Care Team (Late st Contact Info) Description 11/19/2022 Abstract [facility] [place] [facility] [address] [place] 110 [place] [address] Geraldine Paz LPN [address] [place] [address] Social History Tobacco Use Types Packs/Day Years [...] Visit [facility] 703 [facility] 150 [place] [phone] Chi Reyes DO 703 [facility] 150 [place] [address] 03/10/2025 10:30 AM EST Office Visit [facility] [address] [facility] [address] [place] [address] Alda Osborne MD [address] [facility] 110 [place] [address] documented as of this encounter Visit Diagnoses Not on filedocumented in this encounter Care Teams Sheet Metal Shop Foreman Relationship Specialty Start Date End Date Alda Osborne MD [address] [facility] 110 [place] [address] PCP - General Family Medicine 09/08/22 Alda Osborne MD [address] [facility] 110 [place] [address] PCP - ACO Reach 05/25/23 05/01/24 Alda Osborne MD [address] [facility] [facility] 110 [place] [address] PCP - ACO Reach 05/09/24 06/26/24 Joan Calvo RN [address] [place] [address] Clinical Advocate Family Medicine 05/02/24 05/23/24 documented as of this encounter
--- OUTSIDE RECORDS SUMMARY | 2025-01-06 17:42 | XMS_ITS | Encounter Summary ---
Author Organization [facility] Address [address] [place] [address] Care Team Providers Care Aboriginal Home School Liaison Officer Name Role Phone Alda Osborne MD Primary Care Provider [phone] Alda Osborne MD Unavailable Joan Calvo RN Unavailable [phone] Alda Osborne MD Unavailable Encounter Details Date Type Department Care Team (Late st Contact Info) Description 03/05/2023 Abstract [facility] [place] [facility] 112 [facility] 110 [place] [address] Alda Osborne MD 112 [facility] 110 [place], [place] [phone] Social History Tobacco Use Types Packs/Day Years [...] How often do you attend chur or tenriism services? Never 01/25/2023 Do you [...] heating? Not hard at all 01/25/2023 [facility] - Occupational Stress Questionnaire Answer [...] EST Office Visit [facility] [address] [phone] Chi Reyes DO 703 [facility] 150 [place] [address] 03/10/2025 10:30 AM EST Office Visit [facility] [place] [address] [facility] 110 [place] [address] Alda Osborne MD [address] [facility] 110 [place] [address] documented as of this encounter Visit Diagnoses Not on filedocumented in this encounter Care Teams Aboriginal Home School Liaison Officer Relationship Specialty Start Date End Date Alda Osborne MD [address] [facility] 110 [place] [address] PCP - General Family Medicine 09/08/22 Alda Osborne MD [address] [place] 110 [place], [place] [phone] PCP - ACO Reach 05/25/23 05/01/24 Alda Osborne MD [address] [place] 110 [place], [place] [phone] PCP - ACO Reach 05/09/24 06/26/24 Joan Calvo, RN [address] [place] [address] Clinical Advocate Family Medicine 05/02/24 05/23/24 documented as of this encounter
--- OUTSIDE RECORDS SUMMARY | 2025-01-06 17:42 | XMS_ITS | CCD ---
Author Organization [facility] Care Team Providers Care Nursery Technician Name Role Phone ROSA MARIA DIAZ Unavailable Unavailable ROSA MARIA DIAZ Unavailable Unavailable LAURA SHEA Unavailable Unavailable SHABBIR, DR LIZAMA Primary Care Unavailable YEIMY MARTINEZ Admitting Unavailable YEIMY MARTINEZ Attending Unavailable Mayuri, DR Corona Consulting Unavailable YEIMY MARTINEZ Consulting Unavailable SHABBIR, DR LIZAMA Primary Care Unavailable SHAIKH Julia DON Admitting Unavailable SHAIKH Julia DON Attending Unavailable Mayuri, DR Corona Consulting Unavailable JIMMY HUANG Consulting Unavailable YEIMY MARTINEZ Consulting Unavailable SHAIKH Julia DON Consulting Unavailable AUNDREA ADAM Consulting Unavailable DELVIS LUND Consulting Unavailable SHABBIR, DR LIZAMA Primary Care Unavailable JOHN, DR TAMICA Gardner Admitting Unavailtyler LOPEZ, DR TAMICA Gardner Attending Unavailtyler RUSSELL, DR ADITHYA Bull Consulting Unavailable JOHN, DR TAMICA Gardner Consulting UnavailIWONA Burton Consulting Unavailable Laura Shea MD Primary Care Provider [phone] Laura Shea MD Unavailable LAURA SHEA Primary Care Physician LAURA SHEA Attending Unavailable LAURA SHEA Attending Unavailable LAURA SHEA Attending Unavailable AGNIESZKA ESCOBAR Attending Unavailable LAURA SHEA Attending Unavailable LIZZETTE GOLDBERG Attending Unavailable LAURA SHEA Referring Unavailable Tran Chew. Referring Unavailable Lue Tran MFrance Admitting Unavailable Lue Tran M. Attending Unavailable LueTran M. Attending Unavailable Lue Tran M. Attending Unavailable Lue Tran M. Referring Unavailable Lue, Tran M. Attending Unavailable Allergies Allergy Classification Reported Allergen(s) Allergy Type Date of Onset Reaction(s) Facility (6 sources) zolpidem Drug Allergy Other [facility] Healthcare (1 source) No Known Medication Allergies; Translations: [No Known Medication Allergies] Propensity to adverse reactions (disorder) [facility] Repository Medications Current Medications Medication Drug Class(es) Dates Sig (Normalized) Sig (Original) albuterol 0.83 mg/ml inhalation solution (16 sources) beta2-Adrenergic Agonist Start: 12-09-2024 take 5 mg by inhalation every six hours for wheezing albuterol 0.083% Inh Beba 3 mL 5 mg, 6 mL, Inhalation, q6hr for wheezing, 60 EA, Refill(s) 0 Start Date: 12/09/24 Status: Ordered Quantity: 60.0 Unit: EA Repeat number: 1 Start: 04-02-2023 End: 05-02-2023 albuterol (2.5 MG/3ML) 0.083 % nebulizer solution Indications: Chronic obstructive pulmonary disease, unspecified COPD type (HCC) Take 3 mL (2.5 mg) by nebulization 3 (three) times a day as needed for wheezing or shortness of breath 75 mL 2 04/02/2023 Active amoxicillin 875 mg / clavulanate 125 mg oral tablet (1 source) Penicillin-class Antibacterial Start: 04-19-2023 End: 04-29-2023 take 1 tablet by mouth in the morning amoxicillin-clavulanate (Augmentin) 875-125 MG tablet Indications: Ear drainage, bilateral Take 1 tablet (875 mg) by mouth in the morning and 1 tablet (875 mg) before bedtime. Do all this for 10 days. 20 tablet 0 04/19/2023 04/29/2023 Active aspirin 81 mg oral capsule (16 sources) Platelet Aggregation Inhibitor, Nonsteroidal Anti-inflammatory Drug Start: 12-09-2024 take 1 mg by mouth every twenty-fou r hours aspirin 81 mg oral capsule mg cap(s), Oral, q24hr, Refills(s) 0 Start Date: 12/09/24 Status: Ordered Repeat number: 1 aspirin 81 MG ch ewable tablet Chew 81 mg 1 (one) time. Active benzonatate 100 mg oral capsule (1 source) Non-narcotic Antitussive Start: 04-23-2023 take 2 capsules by mouth every eight hours as needed for cough benzonatate (Tessalon) 100 MG capsule TAKE 2 CAPSULES BY MOUTH EVERY 8 HOURS NEEDED FOR COUGH 0 04/23/2023 Active Breztri Aerosphere inhalation aerosol (1 source) Start: 12-09-2024 Breztri Aerosphere inhalation aerosol inh, Inhalation, BID, Refill(s) 0 Start Date: 12/09/24 Status: Ordered Repeat number: 1 120 actuat budesonide 0.16 mg/actuat / formoterol fumarate 0.0048 mg/actuat / glycopyrrolate 0.009 mg/actuat metered dose inhaler (15 sources) Corticosteroid, beta2-Adrenergic Agonist Start: 11-03-2021 Budeson-Glycopyrr ol-Formoterol (Breztri Aerosphere) 160-9-4.8 MCG/ACT aerosol Inhale 2 puffs every 12 (twelve) hours. 11/03/2021 Active carvedilol 6.25 mg oral tablet (16 sources) alpha-Adrenergic Natacha, beta-Adrenergic Natacha Start: 06-23-2024 take 1 tablet by mouth [...] 0 Active ciprofloxacin 500 mg oral tablet (10 sources) Quinolone Antimicrobial Start: 11-25-2024 End: 12-09-2024 take 1 tablet by mouth in the morning ciprofloxacin (Cipro) 500 MG tablet Indications: Elevated PSA Take 1 tablet (500 mg) by mouth in the morning and 1 tablet (500 mg) before bedtime. Do all this for 14 days. 28 tablet 11/25/2024 12/09/2024 Discontinued Start: 08-04-2024 End: 08-18-2024 take 1 tablet by mouth in the morning ciprofloxacin (Cipro) 250 MG tablet Indications: Elevated PSA Take 1 tablet (250 mg) by mouth in the morning and 1 tablet (250 mg) before bedtime. Do all this for 14 days. 28 tablet 08/04/2024 08/18/2024 Active Continuous Blood Gluc Education Professor (FreeStyle [place] 2 [place]) device (2 sources) Start: 05-01-2023 End: 04-30-2024 Continuous Blood Gluc Education Professor (FreeStyle [place] 2 [place]) device Indications: Type 2 diabetes mellitus without [...] propionate 0.05 mg/actuat metered dose nasal spray (15 sources) Corticosteroid Start: 05-15-2023 take 2 spray(s) [...] Active hydrOXYzine hydrochloride 25 mg oral tablet (16 sources) Antihistamine Start: 03-08-2022 hydrOXYzine HC l (Atarax) 25 MG tablet Take 25 mg by mouth in the morning and 25 mg at noon and 25 mg in the evening and 25 mg before bedtime. 03/08/2022 Active 3 ml insulin glargine 100 unt/ml pen injector (18 sources) Insulin Analog Start: 12-09-2024 Lantus Solosta r Pen 100 units/mL subcutaneous solution 10 unit(s), INJECT EIGHT UNITS SUBCUTANEOUSLY (UNDER THE SKIN) DAILY AT BEDTIME. Start Date: 12/09/24 Status: Ordered Repeat number: 1 Start: 12-09-2024 End: 12-09-2025 inject 10 [IU] by subcutaneous injection at bedtime insulin glargine (Lantus SoloStar) 100 UNIT/ML pen Indications: Type 2 diabetes mellitus without complication, without long-term current use of insulin (HCC) Inject 10 Units under the skin at bedtime 12/09/2024 12/09/2025 Active Start: 01-10-2024 End: 01-09-2025 inject 8 [IU] by subcutaneous injection at bedtime insulin glargine (Lantus SoloStar) 100 UNIT/ML pen Indications: Type 2 diabetes mellitus without complication, without long-term current use of insulin (HCC) Inject 8 Units under the skin at bedtime 7.2 mL 3 01/10/2024 12/09/2024 Discontinued (Reorder) Start: 04-23-2023 inject 10 [IU] by reid bcutaneous injection at bedtime Lantus SoloStar 100 UNIT/ML pen Inject 10 Units under the skin at bedtime 0 04/23/2023 Active insulin lispro 100 unt/ml injectable solution (2 sources) Insulin Analog Start: 12-09-2024 HumaLOG 100 un its/mL injectable solution 10 unit(s), SubCutaneous, TIDAC, # 10 mL, Refills(s) 0 Start Date: 12/09/24 Status: Ordered Quantity: 10.0 Unit: mL Repeat number: 1 Start: 12-09-2024 Insulin Lispro (HumaLOG) 100 UNIT/ML solution Inject under the skin 12/09/2024 Active 3 ml insulin lispro 25 unt/ml / insulin lispro protamine, human 75 unt/ml pen injector (15 sources) Insulin Analog Start: 09-17-2023 End: 08-04-2025 inject 10 [IU] by subcutaneous injection in the morning insulin lispro protamine-insulin lispro (HumaLOG Mix 75-25) (75-25) 100 UNIT/ML injection Indications: Type 2 diabetes mellitus without complication, unspecified whether tank terminal gauger insulin use (HCC) , Type 2 diabetes mellitus with stage 3a chronic kidney disease, with long-term current use of insulin (HCC) Inject 10 Units under the skin in the morning and 10 Units in the evening. Inject with meals. 3 mL 12 08/04/2024 12/09/2024 Discontinued (Therapy completed) lisinopril 20 mg oral tablet (16 sources) Angiotensin Converting Enzyme Inhibitor Start: 06-23-2024 [...] Active metFORMIN hydrochloride 1000 mg oral tablet (18 sources) Biguanide Start: 10-06-2022 End: 08-04-2025 take 1 tablet by mouth in the morning metFORMIN (Glucophage) 1000 MG tablet Indications: Type 2 diabetes mellitus without complication, unspecified whether residential insulin use (HCC) Take 1 tablet (1,000 mg) by mouth in the morning and 1 tablet (1,000 mg) in the evening. Take with meals. 180 tablet 3 08/04/2024 08/04/2025 Active ondansetron 4 mg disintegrating oral tablet (10 sources) Serotonin-3 Receptor Antagonist Start: 09-17-2024 apply 1 tablet topically every six hours as needed for nausea and vomiting ondansetron ODT (Zofran-ODT) 4 MG disintegrating tablet DISSOLVE 1 tablet on top OF tongue EVERY 6 HOURS NEEDED FOR NAUSEA AND VOMITING 09/17/2024 Active pravastatin sodium 40 mg oral tablet (16 sources) HMG-CoA Reductase Inhibitor Start: 09-23-2024 take [...] days. 40 tablet 0 04/19/2023 05/05/2023 Active sulfamethoxazole 800 mg / trimethoprim 160 mg oral tablet (1 source) Dihydrofolate Reductase Inhibitor Antibacterial, Sulfonamide Antimicrobial Start: 12-11-2024 take 1 tablet by mouth every twelve hours, then take 6 tablets by mouth once daily Bactrim D.S. 800 mg-160 mg Tab 1 tab(s), Oral, q12hr, 6 tab(s), Refill(s) 0, Start day prior to procedure., [facility], 170, cm, 12/11/24 8:54:00 EDT, Height/Length Dosing, 45.1, kg, 12/11/24 8:54:00 EDT, Weight Dosing Start Date: 12/11/24 Status: Ordered Quantity: 6.0 Unit: tab(s) Repeat number: 1 tamsulosin hydrochloride 0.4 mg oral capsule (1 source) alpha-Adrenergic Natacha Start: 12-11-2024 take 1 capsule by mouth at bedtime for dizziness tamsulosin 0.4 mg Cap 0.4 mg = 1 cap(s), Oral, Bedtime, Monitor for lightheadedness or dizziness. Take 30 minutes after a meal., # 30 cap(s), Refills(s) 11, Pharmacy: [facility], 170, cm, 12/11/24 8:54:00 EDT, Height/Length Dosing, 45.1, kg, 12/11/24 8:54:00 EDT, Weight Dosing Start Date: 12/11/24 Status: Ordered Quantity: 30.0 Unit: cap(s) Repeat number: 12 zolpidem tartrate 10 mg oral tablet (16 sources) gamma-Aminobutyric Acid-ergic Agonist Start: 04-30-2023 End: 12-25-2024 zolpidem (Ambien) 10 MG tablet 10 mg 12/09/2024 Active Problems Active Problems Problem Classification Problem Date Documented Date Episodic/Chronic Abdominal hernia (20 sources) Left inguinal hernia ; Translations: [Unilateral inguinal hernia, without obstruction or gangrene, not specified as recurrent] Onset: 02-05-2024 02-05-2024 Episodic Adjustment disorders (15 sources) Adjustment disorder with anxious mood; Translations: [Adjustment disorder with anxiety] Onset: 09-08-2022 09-08-2022 Chronic Allergic reactions (1 source) Allergic condition 12-11-2024 Episodic Anxiety disorders (15 sources) Anxiety; Translations: [Anxiety disorder, unspecified] Onset: 09-08-2022 09-08-2022 Chronic Chronic kidney disease (11 sources) Chronic kidney disease stage 3A ; Translations: [Chronic kidney disease, stage 3a] Onset: 10-06-2024 10-06-2024 Chronic Chronic obstructive pulmonary disease and bronchiectasis (20 sources) Chronic obstructive pulmonary disease with (acute) exacerbation; Translations: [Chronic obstructive pulmonary disease, unspecified] Onset: 05-23-2021 Resolved: 12-02-2024 09-08-2022 Chronic Chronic obstructive pulmonary disease and bronchiectasis (1 source) Bronchitis 12-11-2024 Episodic Coronary atherosclerosis and other heart disease (1 source) Atherosclerotic heart disease of [place] coronary artery without angina pectoris; Translations: [ASHD HABEMATOLEL CA W/O ANGINA PECTORIS] Onset: 03-28-2022 Chronic Diabetes mellitus with complications (20 sources) Type 2 diabetes mellitus with hypoglycemia without coma; Translations: [Insulin treated type 2 diabetes mellitus] Onset: 03-28-2022 02-05-2024 Chronic Diabetes mellitus without complication (20 sources) Type 2 diabetes mellitus without complications; Translations: [Type 2 diabetes mellitus without complication] Onset: 05-23-2021 09-08-2022 Chronic Disorders of lipid metabolism (20 sources) Pure hypercholesterolemia, unspecified; Translations: [Hypertriglyceridemia] Onset: 03-28-2022 09-08-2022 Chronic E Codes: Fall (2 sources) Fall; Translations: [Unspecified fall, subsequent encounter] 12-02-2024 Episodic Esophageal disorders (16 sources) Gastroesophageal reflux disease; Translations: [Gastro-esophageal reflux disease without esophagitis] Onset: 09-08-2022 09-08-2022 Chronic Essential hypertension (17 sources) Essential (primary) hypertension; Translations: [Benign essential hypertension] Onset: 03-28-2022 09-08-2022 Chronic Fluid and electrolyte disorders (2 sources) Hyperkalemia; Translations: [Hyperkalemia] 12-02-2024 Episodic Genitourinary symptoms and ill-defined conditions (2 sources) Nocturia; Translations: [Nocturia] 12-02-2024 Episodic Hyperplasia of prostate (2 sources) Benign prostatic hypertrophy with outflow obstruction; Translations: [Benign prostatic hyperplasia with lower urinary tract symptoms] Onset: 12-11-2024 Chronic Hypertension with complications and secondary hypertension (17 sources) Hypertension secondary to endocrine disorder; Translations: [Hypertension secondary to endocrine disorders] Onset: 09-08-2022 09-08-2022 Chronic Immunity disorders (2 sources) Secondary immune deficiency disorder; Translations: [Immunodeficiency due to conditions classified elsewhere ([facility])] 02-05-2024 Chronic Immunizations and screening for infectious disease (4 sources) Patient encounter status; Translations: [Encounter for immunization] 02-05-2024 Episodic Inflammation; infection of eye (except that caused by tuberculosis or sexually transmitteddisease) (15 sources) Chronic conjunctivitis of left eye; Translations: [Unspecified chronic conjunctivitis, left eye] Onset: 09-08-2022 09-08-2022 Chronic Miscellaneous mental health disorders (13 sources) Primary insomnia; Translations: [Primary insomnia] Onset: 11-25-2024 11-25-2024 Chronic Nutritional deficiencies (2 sources) Deficiency of macronutrients; Translations: [Unspecified protein-calorie malnutrition] 02-05-2024 Chronic Other aftercare (1 source) [facility] (current) use of aspirin; Translations: [ASSISTED CURRENT USE OF ASPIRIN] Onset: 03-28-2022 Episodic Other aftercare (1 source) Other tank terminal gauger (current) drug therapy; Translations: [OTH ASSISTED CURRENT DRUG THERAPY] Onset: 03-28-2022 Episodic Other aftercare (1 source) [facility] (current) use of insulin; Translations: [SALES MARKETING DIRECTOR CURRENT USE OF INSULIN] Onset: 03-28-2022 Episodic Other aftercare (1 source) 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 drugs; Translations: [ASSISTED USE ORAL HYPOGLYCEMIC DX] Onset: 03-28-2022 Episodic Other ear and sense organ disorders (15 sources) Otitis externa; Translations: [Unspecified otitis externa, unspecified ear] Onset: 09-08-2022 09-08-2022 Chronic Other ear and sense organ disorders (15 sources) Bilateral hearing loss; Translations: [Unspecified hearing loss, bilateral] Onset: 08-04-2024 08-04-2024 Chronic Other lower respiratory disease (3 sources) Shortness of breath; Translations: [SHORTNESS OF BREATH] Onset: 03-24-2022 Episodic Other lower respiratory disease (1 source) Dyspnea 12-11-2024 Episodic Other male genital disorders (15 sources) Secondary erectile dysfunction; Translations: [Male erectile dysfunction, unspecified] Onset: 09-08-2022 09-08-2022 Chronic Other nervous system disorders (1 source) Other chronic pain; Translations: [OTHER CHRONIC PAIN] Onset: 03-28-2022 Chronic Other nutritional; endocrine; and metabolic disorders (15 sources) Lipoprotein deficiency disorder; Translations: [Lipoprotein deficiency] Onset: 09-08-2022 09-08-2022 Chronic Otitis media and related conditions (1 source) Bilateral mastoiditis 12-11-2024 Episodic Pancreatic disorders (not diabetes) (1 source) Pancreatitis 12-11-2024 Episodic Residual codes; unclassified (1 source) Tobacco user 12-11-2024 Episodic Substance-related disorders (20 sources) Nicotine dependence, cigarettes, uncomplicated; Translations: [Smoker] Onset: 03-28-2022 09-08-2022 Chronic Thyroid disorders (15 sources) Hypothyroidism; Translations: [Hypothyroidism, unspecified] Onset: 09-08-2022 09-08-2022 Chronic Unclassified (1 source) ECTROPION OF LEFT LOWER LID / ECTROPION OF LEFT LOWER LID() Onset: 10-15-2017 Unclassified (1 source) CONTACT W/AND (SUSP) EXPOS COVID-19; Translations: [CONTACT W/AND (SUSP) EXPOS COVID-19] Onset: 03-28-2022 Unclassified (1 source) LOW BACK PAIN, UNSPECIFIED; Translations: [LOW BACK PAIN, UNSPECIFIED] Onset: 03-28-2022 Unclassified (1 source) Allergic disorder 12-11-2024 Past or Other Problems Problem Classification Problem Date Documented Date Episodic/Chronic Acute and unspecified renal failure (14 sources) Acute renal failure syndrome; Translations: [Acute kidney failure, unspecified] Onset: 04-30-2023 04-30-2023 Episodic Conditions associated with dizziness or vertigo (4 sources) Dizziness and giddiness; Translations: [DIZZINESS AND GIDDINESS] Onset: 05-19-2021 Episodic Other ear and sense organ disorders (15 sources) Bilateral earache; Translations: [Otalgia, bilateral] Onset: 04-19-2023 04-19-2023 Episodic Other ear and sense organ disorders (15 sources) Otorrhea of bilateral ears; Translations: [Otorrhea, bilateral] Onset: 04-19-2023 04-19-2023 Episodic Other lower respiratory disease (15 sources) Lung field abnormal; Translations: [Other nonspecific abnormal finding of lung field] Onset: 09-08-2022 09-08-2022 Episodic Other nutritional; endocrine; and metabolic disorders (2 sources) Weight loss; Translations: [Abnormal weight loss] Onset: 09-17-2023 09-17-2023 Episodic Other nutritional; endocrine; and metabolic disorders (1 source) Weight decreased; Translations: [Abnormal weight loss] Onset: 09-17-2023 09-17-2023 Episodic Other nutritional; endocrine; and metabolic disorders (13 sources) Unintentional weight loss; Translations: [Abnormal weight loss] Onset: 09-17-2023 08-04-2024 Episodic Other screening for suspected conditions (not mental disorders or infectious disease) (20 sources) Raised prostate specific antigen; Translations: [Elevated prostate specific antigen [PSA]] Onset: 08-04-2024 08-04-2024 Episodic Spondylosis; intervertebral disc disorders; other back problems (15 sources) Acute low back pain; Translations: [Acute low back pain without sciatica] Onset: 04-19-2023 04-19-2023 Episodic Unclassified (1 source) ECTROPION OF LEFT LOWER LID; Translations: [ECTROPION OF LEFT LOWER LID] Onset: 10-15-2017 Viral infection (15 sources) COVID-19; Translations: [Other specified viral infection] Onset: 09-08-2022 Resolved: 09-08-2022 09-08-2022 Episodic Results Test Name Value Interpretation Reference Range Facility Ambulatory Visit Summaryon 1 Ambulatory Visit Summary Ambulatory Visit Summary FREIDA DOUGHERTY :1950 Visit Date:01/05/2025 Ambulatory Visit Instructions Your Diagnosis Prostate cancer BPH with urinary obstruction Urge incontinence Smoker Your Care Team Attending Physician - Tran Chew MD. Primary Care Physician - LAURA SHEA MD Referring Physician - Tran Chew MD. This Is Your Medications List tadalafil (tadalafil 5 mg oral tablet) Contact prescribing physician if questions or concerns albuterol (albuterol 0.083% Inh Beba 3 mL) aspirin (aspirin 81 mg oral capsule) budesonide/formotero l/glycopyrrolate (Breztri Aerosphere inhalation aerosol) carvedilol (carvedilol 6.25 mg Tab) hydrOXYzine (hydrOXYzine hydrochloride 25 mg Tab) insulin glargine (Lantus Solostar Pen 100 units/mL subcutaneous solution) insulin lispro (HumaLOG 100 units/mL injectable solution) lisinopril (lisinopril 20 mg Tab) metformin (metformin 1000 mg Tab) ondansetron (ondansetron 4 mg Dis Tab) pravastatin (pravastatin 40 mg Tab) zolpidem (zolpidem 10 mg Tab) [Image Removed: STOP]Stop taking these medications sulfamethoxazole-tri methoprim (Bactrim D.S. 800 mg-160 mg Tab) Procedures Performed Colonoscopy, Repair of ectropion. Discharge Vitals Heart Rate (Peripheral) 95 Blood Pressure 118/61 Height 170 cm Height 67 in Weight 42.7 kg Weight 94.137 lb BMI 14.78 What to do next You Need to Schedule the Following Appointments Follow Up with Jeevan CARMONA, Tran Crouch, MARYL, URO When: Comments: sched PSMA PET scan, referral to rad/onc Where: [address], [place] [address] [phone] Someone Will Contact You Regarding These Appointments [facility] External Ambulatory Referral, Other (needs to be filled in), Other Referral, Referral to radiation oncology to discuss prostate cancer treatment options, 01/05/25 14:04:00 EDT, Prostate cancer Medications What How Much When Why Instructions New tadalafil (tadalafil 5 mg oral tablet) 1 Tablets By Mouth Every day BPH with urinary obstruction Refills: 11 Take for urination Pickup at [facility] Unchanged albuterol (albuterol 0.083% Inh Beba 3 mL) 6 Milliliter Inhalation Every 6 hours as needed for for wheezing Contact prescribing physician if questions or concerns Unchanged aspirin (aspirin 81 mg oral capsule) By Mouth Every 24 hours Contact prescribing physician if questions or concerns Unchanged budesonide/ formoterol/ glycopyrrolate (Breztri Aerosphere inhalation aerosol) Inhalation 2 times a day Contact prescribing physician if questions or concerns Unchanged carvedilol (carvedilol 6.25 mg Tab) 1 Tablets By Mouth 2 times a day Contact prescribing physician if questions or concerns Unchanged hydrOXYzine (hydrOXYzine hydrochloride 25 mg Tab) 1 Tablets By Mouth Every day Contact prescribing physician if questions or concerns Unchanged insulin glargine (Lantus Solostar Pen 100 units/ mL subcutaneous solution) 10 Units INJECT EIGHT UNITS SUBCUTANEOUSLY (UNDER THE SKIN) DAILY AT BEDTIME. Contact prescribing physician if questions or concerns Unchanged insulin lispro (HumaLOG 100 units/ mL injectable solution) 10 Units Subcutaneous Before meals Contact prescribing physician if questions or concerns Unchanged lisinopril (lisinopril 20 mg Tab) 1 Tablets By Mouth Every day Contact prescribing physician if questions or concerns Unchanged metformin (metformin 1000 mg Tab) 1 Tablets Contact prescribing physician if questions or concerns Unchanged ondansetron (ondansetron 4 mg Dis Tab) 1 Tablets Contact prescribing physician if questions or concerns Unchanged pravastatin (pravastatin 40 mg Tab) 1 Tablets By Mouth Once a day (at bedtime) Contact prescribing physician if questions or concerns Unchanged zolpidem (zolpidem 10 mg Tab) 1 Tablets Contact prescribing physician if questions or concerns Pharmacy Information [id number]: [address], [place] [id number] [phone] What How Much When Comments Stop Taking sulfamethoxazole-tri methoprim (Bactrim D.S. 800 mg-160 mg Tab) 1 Tablets By Mouth Every 12 hours Start day prior to procedure. Allergies No Known Medication Allergies Problems Ongoing - Any problem that you are currently receiving treatment for. Allergic Allergies BPH with urinary obstruction Bronchitis Chronic airway obstruction Chronic obstructive pulmonary disease (COPD) Diabetes mellitus Dyspnea Elevated PSA Esophageal reflux Essential hypertension Hyperchylomicronemia Hyperlipemia Hyperlipidemia Mastoiditis of both sides Pancreatitis Prostate cancer Smoker Type 2 diabetes mellitus without complication Urge incontinence Patient Survey You may receive a survey via text or e-mail asking about your office visit. Please share your experience with us by completing your survey. We appreciate your feedback and thank you for choosing us for your care. Education Materials [employer] (more content not included)... Normal [facility] Urology Office/Clinic Noteon 01-05-2025 Urology Office/Clinic Note Urology Office/Clinic Note Chief Complaint f/u HPI Staff 74 yr old male here for 2 WK FU POST TRUS/BIOPSY 12-22-24 Previous dx: Elevated PSA, BPH with urinary obstruction, smoker *Flomax 0.4 mg qhs patient not taking PSA 06/20/23 - 13.96 07/09/23 - 3.2 & 16% 07/25/24 - 21.90 12/04/24 - (free % not calculated) Patient denies any dysuria or gross hematuria. Denies any flank or abdomen pain. frequently maybe a little leakage History of Present Illness Tests reviewed: reviewed op note, path report I have reviewed the previous health record information and history for this patient from Dr. Chew. I have reviewed and verified the staff HPI to be accurate for this encounter. Review of Systems PHQ Score Initial Depression Screen Score: 0 SCORE ROS - Provider Constitutional: denies weight loss, denies hot flashes. Eyes: denies eye problems. Gastrointestinal: denies nausea, denies vomiting. Cardiovascular: denies chest pain or angina. Integumentary: no dryness Musculoskeletal: denies musculoskeletal symptoms. ENMT: denies otolaryngeal symptoms. Respiratory: no shortness of breath. Heme/Lymph: denies easy bleeding tendency, denies easy bruising tendency. Psychiatric: no confusion, no anxiety. Genitourinary: See HPI. Physical Exam Vitals & Measurements HR: 95(Peripheral) BP: 118/61 HT: 170 cm HT: 67 in WT: 42.7 kg WT: 94.137 lb BMI: 14.78 General Appearance: alert, no distress, well nourished, well developed male. Assessment/Plan 74 yo M with T2DM, HTN initially referred by Dr. Laura Shea for elevated PSA, here to review path report from TRUS/bx 12/22/24. Pt accompanied by daughter, Marj. Daughter reported pt had ex lap in 1994 due to being an alcoholic, pancreas issues. DAISY 0 - has not been sexually active since the due to EtOH. Not a priority. 1. Prostate cancer (C61: Malignant neoplasm of prostate) PSA 06/20/23 - 13.96 07/09/23 - 3.2 & 16% 07/25/24 - 21.90 12/04/24 - 31 (free % not calculated) No known family history of prostate CA. Father at age 76, mother at 59 yo. Denies metal objects in body or claustrophobia. UA 09/17/24 - 0-2 WBC, trace bacteria, small mucus. No urine culture was sent. Was on Cipro through Dr. Shea, however it is unclear why pt was started on ATB - was told his numbers were elevated and they were going to see if the ATB would decrease his PSA. Was asx for infection. DWIGHT 12/11/24: not suspicious for prostatitis S/p TRUS/bx 12/22/24 - cT2a high risk disease (due to PSA) Redway 7 (3+4), GG2. +2/12 cores (Right Mid, Right Lateral [place]) Highest core involvement 9%. No cribriform pattern. Initial PSA 31. I explained the NCCN criteria for risk stratification of prostate cancer. I educated him on the national comprehensive cancer network guidelines on the treatment of prostate cancer which indicates his options include: active surveillance, surgery (poor candidate given high risk, age and prior exlap), and radiation therapy. I discussed the advantages of each of his options at length. Pt does not want cancer and wants it treated Discussed referral to radiation oncology to further discuss treatment. Discussed staging studies to evaluate for metastatic disease as well as genetic testing to determine risk for disease progression. We discussed different forms of radiation for prostate cancer including external beam radiation therapy along with brachytherapy. He understood the risks of radiation therapy include but are not limited to bleeding including delayed bleeding (radiation cystitis or radiation proctitis), need for transfusion, pain, infection, injury to the bladder, ureter, urethra, urinary sphincter, surrounding tissues, injury to the bowels, permanent erectile dysfunction, urethral stricture, urinary retention, secondary malignancies (bladder and rectum), need for further treatments and need for further surgeries. -Pathology to be sent for decipher testing -Schedule PSMA PET scan. Will call pt with results. -Referral to rad/onc Dr. Elkins 2. BPH with urinary obstruction (N40.1: Benign prostatic hyperplasia with lower urinary tract symptoms) Prostate volume 19.8 mL per TRUS/bx 12/22/24. IPSS not completed today (19). PVR 12/11/24 - 66 mL. Started Flomax 0.4 mg qhs at prior OV. However no longer taking due to experiencing dizziness and falling. Shares he has flatus when he voids. Does not think he strains to void. Pt also with hernia. Discussed how he likely is straining. Unsure if stream improved while he took Flomax. Discussed daily Cialis as an alternative option. Risks/benefits/possi ble SEs discussed. Nitro not on med list. Pt understands contraindication. Also discussed cystoscopy to evaluate prostate obstruction and determine candidacy for possible surgical intervention vs other etiology given small volume. Risks/benefits discussed. Pt wishes to proceed. -Stay off Flomax -Start Cialis 5 mg qd. Rx sent to [facility]. -Will s (more content not included)... Normal [facility] Comment on above: Result Comment: Elec tronically Signed By: Jeevan CARMONA, Tran Crouch\.br\Date and Time Signed: 01/05/25 14:23 EDT Prostate Histology ([facility]) on 12-30-2024 Prostate Histology Diagnosis Info Invalid Interpretation Code [facility] Comment on above: Result Comment: A :P rostate,Left Lateral Base:Needle Biopsy Interpretation - - Benign prostatic tissue. MicroScopic Description - A :Prostate,Left Base:Needle Biopsy Interpretation - - Benign prostatic tissue. MicroScopic Description - A :Prostate,Left Lateral Mid:Needle Biopsy Interpretation - - Benign prostatic tissue. MicroScopic Description - A :Prostate,Left Mid:Needle Biopsy Interpretation - - Benign prostatic tissue. MicroScopic Description - A :Prostate,Left Lateral [place]:Needle Biopsy Interpretation - - Benign prostatic tissue. MicroScopic Description - A :Prostate,Left [place]:Needle Biopsy Interpretation - - Benign prostatic tissue. MicroScopic Description - A :Prostate,Right Base:Needle Biopsy Interpretation - - Benign prostatic tissue. MicroScopic Description - A :Prostate,Right Lateral Base:Needle Biopsy Interpretation - - Benign prostatic tissue. MicroScopic Description - A :Prostate,Right Mid:Needle Biopsy Interpretation - - Acinar adenocarcinoma of prostate; Redway score 7(3+4); Tumor measures 0.2 cm in length; 9% of the core involved by tumor; 1 of 1 core involved. MicroScopic Description - A :Prostate,Right Lateral Mid:Needle Biopsy Interpretation - - Benign prostatic tissue. MicroScopic Description - A :Prostate,Right [place]:Needle Biopsy Interpretation - - Benign prostatic tissue. MicroScopic Description - A :Prostate,Right Lateral [place]:Needle Biopsy Interpretation - - Acinar adenocarcinoma of prostate; Redway score 6(3+3); Tumor measures 0.07 cm in length; 4% of the core involved by tumor; 1 of 1 core involved. MicroScopic Description - Gross Description Site ID:A color villareal-white fixative Formalin cores 1 units cm Received in jesus 1 of 6 of formalin biopsy board with the patient???s name labeled Left Lateral Base consists of a cylindrical fragment of villareal-white soft tissue measuring 1.66 cm. Totally submitted in Left Bx Chip jesus 1 from the arrow outward in alphabetical order.. Site ID:B color villareal-white fixative Formalin cores 1 units cm Received in jesus 2 of 6 of formalin biopsy board with the patient???s name labeled Left Base consists of a cylindrical fragment of villareal-white soft tissue measuring 1.89 cm. Totally submitted in Left Bx Chip jesus 2 from the arrow outward in alphabetical order.. Site ID:C color villareal-white fixative Formalin cores 1 units cm Received in jesus 3 of 6 of formalin biopsy board with the patient???s name labeled Left Lateral Mid consists of a cylindrical fragment of villareal-white soft tissue measuring 1.72 cm. Totally submitted in Left Bx Chip jesus 3 from the arrow outward in alphabetical order.. Site ID:D color villareal-white fixative Formalin cores 1 units cm Received in jesus 4 of 6 of formalin biopsy board with the patient???s name labeled Left Mid consists of a cylindrical fragment of villareal-white soft tissue measuring 1.47 cm. Totally submitted in Left Bx Chip jesus 4 from the arrow outward in alphabetical order.. Site ID:E color villareal-white fixative Formalin cores 1 units cm Received in jesus 5 of 6 of formalin biopsy board with the patient???s name labeled Left Lateral [place] consists of a cylindrical fragment of villareal-white soft tissue measuring 1.72 cm. Totally submitted in Left Bx Chip jesus 5 from the arrow outward in alphabetical order.. Site ID:F color villareal-white fixative Formalin cores 1 units cm Received in jesus 6 of 6 of formalin biopsy board with the patient???s name labeled Left [place] consists of a cylindrical fragment of villareal-white soft tissue measuring 1.62 cm. Totally submitted in Left Bx Chip jesus 6 from the arrow outward in alphabetical order.. Site ID:G color villareal-white fixative Formalin cores 1 units cm Received in jesus 1 of 6 of formalin biopsy board with the patient???s name labeled Right Base consists of a cylindrical fragment of villareal-white soft tissue measuring 2.06 cm. Totally submitted in Right Bx Chip jesus 1 from the arrow outward in alphabetical order.. Site ID:H color villareal-white fixative Formalin cores 1 units cm Received in jesus 2 of 6 of formalin biopsy board with the patient???s name labeled Right Lateral Base consists of a cylindrical fragment of villareal-white soft tissue measuring 1.95 cm. Totally submitted in Right Bx Chip jesus 2 from the arrow outward in alphabetical order.. Site ID:I color villareal-white fixative Formalin cores 1 units cm Received in jesus 3 of 6 of formalin biopsy board with the patient???s name labeled Right Mid consists of a cylindrical fragment of villareal-white soft tissue measuring 2.02 cm. Totally submitted in Right Bx Chip jesus 3 from the arrow outward in alphabetical order.. Site ID:J color villareal-white fixative Formalin cores 1 units cm Received in jesus 4 of 6 of formalin biopsy board with the patient???s name labeled Right Lateral Mid consists of a cylindrical fragment of villareal-white soft tissue measuring 1.98 cm. Totally submitted in Right Bx Chip jesus 4 from the arrow outward in alphabetical order.. Site ID:K color villareal-white fixativ (more content not included)... Performed By: #### 1 [id number] #### [facility] [address] [place] [address] H&P Updateon 12-22-2024 H&P Update H&P Update Patient: FREIDA DOUGHERTY Age: 74 years Sex: Male : 1950 Associated Diagnoses: None Author: Jeevan CARMONA, Tran Crouch Basic Information I have reviewed prior notes, spoke with patient, no changes to history. Patient elects to proceed with surgery as planned. Health Status Procedure history: Colonoscopy ([id number]). Repair of ectropion ([id number]). Social History Social & Psychosocial Habits Tobacco 12/11/2024 Tobacco Use: 10 or more cigarettes (1/ Type: Cigarettes Smoking Cessation Yes . Allergies: Allergic Reactions (Selected) No Known Medication Allergies Current medications: (Selected) Prescriptions Prescribed Bactrim D.S. 800 mg-160 mg Tab: 1 tab(s), Oral, q12hr, 6 tab(s), Refill(s) 0, Start day prior to procedure., [facility], 170, cm, 12/11/24 8:54:00 EDT, Height/Length Dosing, 45.1, kg, 12/11/24 8:54:00 EDT, Weight Dosing tamsulosin 0.4 mg Cap: 0.4 mg = 1 cap(s), Oral, Bedtime, Monitor for lightheadedness or dizziness. Take 30 minutes after a meal., # 30 cap(s), Refills(s) 11, Pharmacy: [facility], 170, cm, 12/11/24 8:54:00 EDT, Height/Length Dosing, 45.1, kg, 12/11/24 8:54:0... Documented Medications Documented Breztri Aerosphere inhalation aerosol: inh, Inhalation, BID, Refill(s) 0 HumaLOG 100 units/mL injectable solution: 10 unit(s), SubCutaneous, TIDAC, # 10 mL, Refills(s) 0 Lantus Solostar Pen 100 units/mL subcutaneous solution: 10 unit(s), INJECT EIGHT UNITS SUBCUTANEOUSLY (UNDER THE SKIN) DAILY AT BEDTIME. albuterol 0.083% Inh Beba 3 mL: 5 mg, 6 mL, Inhalation, q6hr for wheezing, 60 EA, Refill(s) 0 aspirin 81 mg oral capsule: mg cap(s), Oral, q24hr, Refills(s) 0 carvedilol 6.25 mg Tab: 6.25 mg = 1 tab(s), Oral, BID, # 180 tab(s), Refills(s) 0 hydrOXYzine hydrochloride 25 mg Tab: 25 mg = 1 tab(s), Oral, Daily, # 30 tab(s), Refills(s) 0 lisinopril 20 mg Tab: 20 mg = 1 tab(s), Oral, Daily, # 90 tab(s), Refills(s) 0 metformin 1000 mg Tab: 1,000 mg = 1 tab(s), Refills(s) 0 ondansetron 4 mg Dis Tab: 4 mg = 1 tab(s), Refills(s) 0 pravastatin 40 mg Tab: 40 mg = 1 tab(s), Oral, Once a day (at bedtime), # 90 tab(s), Refills(s) 0 zolpidem 10 mg Tab: 10 mg = 1 tab(s), Refills(s) 0 Problem list: All Problems Allergic / SNOMED CT 1440193778 / Confirmed Allergies / SNOMED CT 0200334828 / Confirmed BPH with urinary obstruction / SNOMED CT 5575721589 / Confirmed Bronchitis / SNOMED CT 04682254 / Confirmed Chronic airway obstruction / SNOMED CT 352721132 / Confirmed Chronic obstructive pulmonary disease (COPD) / SNOMED CT 420483310 / Confirmed Diabetes mellitus / SNOMED CT 655807138 / Confirmed Dyspnea / SNOMED CT 723632092 / Confirmed Elevated PSA / SNOMED CT 0820482917 / Confirmed Esophageal reflux / SNOMED CT 562969526 / Confirmed Essential hypertension / SNOMED CT 82830443 / Confirmed 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 Hyperlipemia / SNOMED CT 50559085 / Confirmed Hyperlipidemia / SNOMED CT 73747048 / Confirmed Mastoiditis of both sides / SNOMED CT 3147452631 / Confirmed Pancreatitis / SNOMED CT 976663323 / Confirmed Smoker / SNOMED CT 786789130 / Confirmed Tobacco use / SNOMED CT 3371182193 / Confirmed Type 2 diabetes mellitus without complication / SNOMED CT 601393386 / Confirmed Normal [facility] Comment on above: Result Comment: Elec tronically Signed By: Jeevan CARMONA, Tran Rainey.br\Date and Time Signed: 12/22/24 09:11 EDT Inpatient Patient Summaryon 12-22-2024 Inpatient Patient Summary Inpatient Patient Summary [place] [id number] Clinical Summary Person Information Name: FREIDA DOUGHERTY Age: 74 Years : 1950 Sex: Male PCP: LAURA SHEA MD Marital Status: Unknown Race: White Ethnicity: Non- or Language: Estonian Visit Id: Visit Reason: ELEVATED PSA, BPH WITH URINARY OBSTRUCTION Speciality: Acuity: Enc Type: Outpatient Med Service: Surgery Arrival: 12/22/2024 08:43:55 Discharge: Dispo Type: Address: [address] [place] [id number] Provider Notes: Diagnosis: Elevated PSA Problems Active BPH with urinary obstruction Smoker Elevated PSA Type 2 diabetes mellitus without complication Pancreatitis Mastoiditis of both sides Hyperlipidemia Hyperlipemia Hyperchylomicronemia Essential hypertension Esophageal reflux Dyspnea Diabetes mellitus Chronic obstructive pulmonary disease (COPD) Chronic airway obstruction Bronchitis Allergies Allergic Smoking Status: Functional Status: Sensory Deficits: History of Falls: Mobility Assistance Prior to Admission: ADLs: Current Level of Assistance for Self-Care/Mobility: Cognitive Status: Allergies No Known Medication Allergies Laboratory or Other Results This Visit (last charted value for your 12/22/2024 visit) No Laboratory or Other Results This Visit Measurements: Height: 170 cm Weight: 45.1 kg Blood Pressure: Not Valued / Not Valued BMI: 15.61 kg/m2 Procedures No Procedures Performed or Documented Immunizations No Immunizations Documented This Visit Final Med List: albuterol (albuterol 0.083% Inh Beba 3 mL) 6 Milliliter Inhalation every 6 hours as needed for wheezing. aspirin (aspirin 81 mg oral capsule) By Mouth every 24 hours. budesonide/formotero l/glycopyrrolate (Breztri Aerosphere inhalation aerosol) Inhalation 2 times a day. carvedilol (carvedilol 6.25 mg Tab) 1 Tablets By Mouth 2 times a day. hydrOXYzine (hydrOXYzine hydrochloride 25 mg Tab) 1 Tablets By Mouth every day. insulin glargine (Lantus Solostar Pen 100 units/mL subcutaneous solution) 10 Units. INJECT EIGHT UNITS SUBCUTANEOUSLY (UNDER THE SKIN) DAILY AT BEDTIME.. insulin lispro (HumaLOG 100 units/mL injectable solution) 10 Units Subcutaneous before meals. lisinopril (lisinopril 20 mg Tab) 1 Tablets By Mouth every day. metformin (metformin 1000 mg Tab) 1 Tablets. ondansetron (ondansetron 4 mg Dis Tab) 1 Tablets. pravastatin (pravastatin 40 mg Tab) 1 Tablets By Mouth once a day (at bedtime). sulfamethoxazole-tri methoprim (Bactrim D.S. 800 mg-160 mg Tab) 1 Tablets By Mouth every 12 hours. Start day prior to procedure.. Refills: 0. tamsulosin (tamsulosin 0.4 mg Cap) 1 Capsules By Mouth at bedtime. Monitor for lightheadedness or dizziness. Take 30 minutes after a meal.. Refills: 11. zolpidem (zolpidem 10 mg Tab) 1 Tablets. Care Team Members: Attending Physician: Tran Chew MD Consulting Physician: Referring Physician: Tran Chew MD Follow up: With: Address: When: Tran Chew [address] [place] [address], [place] [phone] Business (1) Comments: Keep scheduled appointment Please call if you need to reschedule Type Location Start Finish State URO Office Visit [facility] 01/08/2025 8:15 AM 01/08/2025 8:30 AM Confirmed Patient Education Information: EU - Transrectal Ultrasound of the Prostate with US guided biopsy Discharge Instructions (CUSTOM) [place] [facility] Main OR Intraoperative Recor don 12-22-2024 Main OR Intraoperative Record Main OR Intraoperative Record IntraOp Document Type FTURO Summary Primary Physician: Tran Chew MD Finalized Date/Time: 12/22/24 09:29:08 Pt. Name: FREIDA DOUGHERTY Estela MacielB./Sex: 1950 Male Med Rec #: [id number] Physician: Tran Chew MD Financial #: [id number] Pt. Type: O Room/Bed: / Admit/Disch: 12/22/24 08:43:55 - Institution: Case Times FTURO Entry 1 Patient Times In Room 12/22/24 09:17:00 Out Room 12/22/24 09:33:00 Procedure Times Start 12/22/24 09:20:00 Stop 12/22/24 09:28:00 Anesthesia Times Last Modified By: Josué Taveras Ii 12/22/24 09:28:59 Case Attendance FTURO Entry 1 Entry 2 Entry 3 Case Attendee Tran Chew MD, Alfons Ii F McClain CST, Whitley Rosario Role Performed Surgeon - Primary Restaurant Hourly Manager - Primary Scrub - Primary Time In 12/22/24 09:17:00 12/22/24 09:17:00 12/22/24 09:17:00 Time Out 12/22/24 09:33:00 12/22/24 09:33:00 12/22/24 09:33:00 Procedure PROSTATE TRANSRECTAL PROSTATE TRANSRECTAL PROSTATE TRANSRECTAL ULTRASOUND WITH BIO(.) ULTRASOUND WITH BIO(.) ULTRASOUND WITH BIO(.) Comments Last Modified By: Josué Taveras Ii, Alfons Ii F Letrondo, Alfons Ii F 12/22/24 09:29:03 12/22/24 09:29:03 12/22/24 09:29:03 Surgical Procedures FTURO Entry 1 Procedure Description Procedure PROSTATE TRANSRECTAL Modifiers . ULTRASOUND WITH BIOPSY Surgeon Description TRUS BIOPSY UNDER LOCAL Primary Procedure Yes Primary Surgeon Tran Chew MD Start 12/22/24 09:20:00 Stop 12/22/24 09:28:00 Anesthesia Type Local Surgical Service Urology Wound Class 2 - Clean-Contaminated Last Modified By: Josué Taveras Ii 12/22/24 09:29:02 General Case Data FTURO Pre-Care Text: Classifies surgical wound, implements aseptic technique, initiates traffic control Entry 1 Case Information OR URO 1 FT Case Level None Wound Class 2 - Clean-Contaminated Specialty Urology Preop Diagnosis ELEVATED PSA, BPH WITH Postop Same As Preop Yes URINARY OBSTRUCTION Postop Diagnosis ELEVATED PSA, BPH WITH Outcomes Met? Yes URINARY OBSTRUCTION Last Modified By: Josué Taveras Ii 12/22/24 09:21:25 Post-Care Text: The patient is free from signs and symptoms of infection EU IntraOp - FTURO Pre-Care Text: Implements protective measures prior to operative or invasive procedure, confirms identity before the operative or invasive procedure, verifies operative procedure, surgical site, and laterality Entry 1 EU Perioperative Protocols Procedure(s) PROSTATE TRANSRECTAL Patient Identity Birthday, ID Band ULTRASOUND WITH BIO(.) Verified (select at Check, Patient least 2): Participation Consents / H and P H&P, Surgery/Procedure Operative Site N/A Verified Consent Marking Verified Surgical Site Yes Laterality Verified Yes Verified Procedure Verified Yes Correct Patient Yes Position Verified Availability Equipment, Medication Time Out Jeevan CARMONA, Tran Crouch, Verified (If Participants Josué Taveras Ii, Applicable) Whitley Workman CST Time Out Complete 12/22/24 09:20:00 Allergies Reviewed? Yes Allergies Reviewed Self/Patient With Body Position Lateral, right side up Skin. Condition Intact, [place], Warm, & Description unchanged Dry Additional Tissue Specimens Collected Vitals - EU Blood Pressure 152/92 Pulse 96 bpm Respirations 20 br/min SPO2 97 % I&O - EU Outcomes Met? Yes Last Modified By: Josué Taveras Ii 12/22/24 09:26:47 Post-Care Text: The patient is free from signs and symptoms of injury caused by extraneous objects Sign Out FTURO Entry 1 Before Patient Leaves OR Nurse verbally Yes Nurse verbally Yes confirms with the confirms with the team the name of team that the procedure(s) instrument, sponge, recorded and needle counts are correct (or N/A) Nurse verbally Yes Nurse verbally Yes confirms with the confirms with the team how the team whether there specimen is labeled are any equipment (including patient problems to be name), if applicable addressed Sign Out Complete 12/22/24 09:29:00 Last Modified By: Josué Taveras Ii 12/22/24 09:29:02 Case Comments Finalized By: Josué Taveras Ii Document Signatures Signed By: Josué Taveras Ii 12/22/24 09:29 Normal [facility] Main OR Preoperative Recordo n 12-22-2024 Main OR Preoperative Record Main OR Preoperative Record Holding Area Document Type FTURO Summary Primary Physician: Tran Chew MD Finalized Date/Time: 12/22/24 09:51:35 Pt. Name: FREIDA DOUGHERTY Estela MacielB./Sex: 1950 Male Med Rec #: [id number] Physician: Tran Chew MD Financial #: [id number] Pt. Type: O Room/Bed: / Admit/Disch: 12/22/24 08:43:55 - Institution: Case Times Holding FTURO Pre-Care Text: Verifies consent for planned procedure, identifies individual values and wishes concerning care, includes family members in perioperative teaching Secures patient's records' belongings, and valuables, maintains patient's dignity and privacy, and maintains patient confidentiality Entry 1 In Holding 12/22/24 09:01:00 Outcomes Met? Yes Last Modified By: Yessy KRUEGER, Bobbi Lara 12/22/24 09:01:42 Post-Care Text: The patient participates in decisions affecting his or her perioperative plan of care The patient's right to privacy is maintained Surgery Checklist FTURO Entry 1 Patient Birthday, ID Band Procedure History and Physical, Identification: Check, Patient Verification: Surgical Consent, With Participation Patient NPO after Midnight: n/a Date/Time: 12/22/24 09:01:00 Complaints of Pain: n/a Skin Integrity Unable to Visualize Vitals - EU Blood Pressure 152/92 Pulse 96 bpm Respirations 80 br/min SPO2 97 % Additional None RN Reviewed Yes Specimens Collected Last Modified By: Josué Taveras Ii 12/22/24 09:51:34 Finalized By: Josué Taveras Ii Document Signatures Signed By: Josué Taveras Ii 12/22/24 09:51 Normal [facility] Operative Reporton Operative Report Operative Report Patient: FREIDA DOUGHERTY Age: 74 years Sex: Male : 1950 Associated Diagnoses: None Author: Tran Chew MD Procedure Procedure Date: 12/22/2024. Confirmed: patient, procedure, site, safety procedures followed. Performed by: Tran Chew MD. Type of procedure: PROCEDURE PERFORMED: 1. Transrectal ultrasound of the prostate and seminal vesicles (07464). 2. Ultrasound for needle biopsy (83255). 3. Prostate biopsy (01853). 4. Periprostatic nerve block . Wound identification: No surgical incision was made. Contaminated procedure due to transrectal approach BRIEF HISTORY: The patient is a 74 -year-old gentleman with history of elevated PSA of 31. DWIGHT R apical nodule. He was counseled on his options and elected to have a transrectal ultrasound-guided prostate biopsy. He understood the risks of the procedure to include but not be limited to bleeding, pain, infection, urosepsis, impotence, difficulties with urination, retention, false negative result and need for further procedures. DESCRIPTION OF PROCEDURE: After informed consent was obtained, the patient was taken to the procedure room. He is on oral preoperative antibiotics, Additional dose of IM gentamicin was given. The patient was placed in a lateral decubitus position with the left side down. Lidocaine was inserted per urethra. A transrectal ultrasound probe was inserted without difficulty. The prostate was measured in three dimensions with a calculated volume of 19.8 mL. This included width a 3.8 cm, height of 2.5 cm, and length of 3.9 cm. There was calcifications within the central/transition zone. Possible hypoechoic region in the left anterior base and right anterior mid and right apex however unclear if is secondary to calcification artifact. The seminal vesicles were visualized bilaterally. These were normal in size, shape and echotexture. A needle was injected into the SV and prostate base junction to instill lidocaine plain for periprostatic block bilaterally for both intraoperative and postoperative pain control. A standard 12 core biopsy was then performed including 6 from each side. These were separately sent as base, mid, and apical tissues including laterally directed cores from each site. The patient tolerated the procedure adequately and there was only minor bleeding. SPECIMEN SUBMITTED: Twelve prostate cores. 1. Left base lateral 2. Left base 3. Left mid lateral 4. Left mid 5. Left apex lateral 6. Left apex 7. Right base lateral 8. Right base 9. Right mid lateral 10. Right mid 11. Right apex lateral 12. Right apex CULTURES TAKEN: None. PATIENT CONDITION: Stable. PLAN: The patient will follow-up as scheduled to discuss the biopsy results in clinic. He knows to call or go immediately to the emergency room should he develop fevers, chills, inability to urinate, bleeding or any other concerns.. Impression and Plan Diagnosis Elevated PSA ([id number] R97.20, Discharge, Medical). Diagnosis Elevated PSA ([id number] R97.20, Discharge, Medical). Normal [facility] Comment on above: Result Comment: Elec tronically Signed By: Tran Chew MD\.br\Date and Time Signed: 12/22/24 09:34 EDT Outpatient Surgery Discharge Instructionon 12-22-2024 Outpatient Surgery Discharge Instruction Outpatient Surgery Discharge Instruction [address] [address] Patient Discharge Instructions PERSON INFORMATION Name: FREIDA DOUGHERTY Date of : 1950 Current Date: 12/22/2024 09:29:52 PHYSICIANS Admitting Physician: Tran Chew MD Comment: Discharge Diagnosis: Elevated PSA FREIDA DOUGHERTY has been given the following list of follow-up instructions, prescriptions, and patient education materials: IF UNABLE TO CONTACT YOUR PHYSICIAN AND YOU FEEL IT IS AN EMERGENCY, GO TO THE NEAREST EMERGENCY ROOM OR CALL 911 Follow up: With: Address: When: Tran Chew [address] [place], [place] [phone] [facility] (1) Comments: Keep scheduled appointment Please call if you need to reschedule Type Location Start Finish [facility] Office Visit [facility] 01/08/2025 8:15 AM 01/08/2025 8:30 AM Confirmed Comment: PATIENT EDUCATION INFORMATION Instructions: Transrectal Ultrasound of the Prostate with US guided biopsy ??? Even though there are no visible incisions, multiple prostate biopsies have been taken through the rectum and you need to follow some instructions to minimize the risks of bleeding. ??? You may see some blood in your urine and stool for up to 1 week (and blood in the semen for several months) ??? Diet -You may resume your normal diet, but you may want to avoid alcohol, carbonated drinks, caffeine, and spicy foods, which may increase the irritation from the surgery. -Drink plenty of water to keep the urine clear. ??? Activity -You should limit any physical activity for about 48 hours -No heavy lifting or straining (10 pound limit) -No driving a car and limit long car rides for 2 days -No strenuous exercise -No sexual intercourse until this is discussed with your doctor ??? Bowels -Try to keep your bowel movements soft to minimize straining to have a bowel movement. -You may use a stool softener or over the counter laxative if needed -Difficult bowel movement may lead to straining and bleeding from the prostate ??? Medications -You may resume your home medications unless instructed otherwise -Hold aspirin, ibuprofen, Coumadin (warfarin) and other blood thinners for about two days or until there is no active bleeding unless otherwise instructed -Finish the antibiotic which you have already started ??? Things to watch for which would require an Emergency Room visit or call 911: (this is not a complete list) -Persistent or heavy bleeding or blood clots from the rectum or in the urine -Inability to urinate -Fever over 101.5 degrees Fahrenheit, with or without chills -Severe drug reactions with itching, hives or rash -Tenderness or swelling of the calves, chest pain, or shortness of breath ??? Please call the office to arrange for your post-operative appointment in 1-2 weeks [phone] or [phone] JANESSA Camp JAMES E, have received the attached patient education materials/instructio ns and have verbalized understanding: May we do a follow up call? Yes No I was present when discharge instructions were given Patient Signature Date Clinican/Nurse Signature Date You may receive a survey from Raji Ramesh asking you to rate your care experience. Your feedback is important and will help us understand what we do well and how we can improve the quality of care we provide to you, your loved ones and our community. It???s an honor to serve you. Thank you for choosing [facility] Normal [facility] Prostate Histology ([facility]) on 12-22-2024 PH Method of Extraction Needle Biopsy Normal [facility] Comment on above: Performed By: #### 1 [id number] #### [facility] Laboratory [address] [place] [address] PH Number of Jars 2 Invalid Interpretation Code [facility] Comment on above: Performed By: #### 1 [id number] #### [facility] [address] [place] [address] PH Specimen 1 L Lat Apx Prost Normal [facility] Comment on above: Performed By: #### 1 [id number] #### [facility] [address] [place] [address] PH Specimen 10 R Lat Bse Prost Normal [facility] Comment on above: Performed By: #### 1 [id number] #### [facility] [address] [place] [address] PH Specimen 11 R Lat Mid Prost Normal [facility] Comment on above: Performed By: #### 1 [id number] #### [facility] [address] [place] [address] PH Specimen 12 R Lat Apx Prost Normal [facility] Comment on above: Performed By: #### 1 [id number] #### [facility] [address] [place] [address] PH Specimen 2 L Lat Mid Prost Normal [facility] Comment on above: Performed By: #### 1 [id number] #### [facility] [address] [place] [address] PH Specimen 3 L Lat Bse Prost Normal [facility] Comment on above: Performed By: #### 1 [id number] #### [facility] [address] [place] [address] PH Specimen 4 L Apx Prostate Normal [facility] Comment on above: Performed By: #### 1 [id number] #### [facility] [address] [place] [address] PH Specimen 5 L Mid Prostate Normal [facility] Comment on above: Performed By: #### 1 [id number] #### [facility] [address] [place] [address] PH Specimen 6 L Base Prostate Normal [facility] Comment on above: Performed By: #### 1 [id number] #### [facility] [address] [place] [address] PH Specimen 7 R Base Prostate Normal [facility] Comment on above: Performed By: #### 1 [id number] #### [facility] [address] [place] [address] PH Specimen 8 R Mid Prostate Normal [facility] Comment on above: Performed By: #### 1 [id number] #### [facility] [address] [place] [address] PH Specimen 9 R Apx Prostate Normal [facility] Comment on above: Performed By: #### 1 [id number] #### [facility] [address] [place] [address] PH Type of Service Technical Only Normal [facility] Comment on above: Performed By: #### 1 [id number] #### [facility] [address] [place] [address] Ambulatory Visit Summaryon 0 12-11-2024 Ambulatory Visit Summary Ambulatory Visit Summary FREIDA DOUGHERTY :1950 Visit Date:12/11/2024 Ambulatory Visit Instructions Your Diagnosis Elevated PSA BPH with urinary obstruction Smoker Your Care Team Attending Physician - Tran Chew MD. Primary Care Physician - LAURA SHEA MD This Is Your Medications List sulfamethoxazole-tri methoprim (Bactrim D.S. 800 mg-160 mg Tab) tamsulosin (tamsulosin 0.4 mg Cap) Contact prescribing physician if questions or concerns albuterol (albuterol 0.083% Inh Beba 3 mL) aspirin (aspirin 81 mg oral capsule) budesonide/formotero l/glycopyrrolate (Breztri Aerosphere inhalation aerosol) carvedilol (carvedilol 6.25 mg Tab) hydrOXYzine (hydrOXYzine hydrochloride 25 mg Tab) insulin glargine (Lantus Solostar Pen 100 units/mL subcutaneous solution) insulin lispro (HumaLOG 100 units/mL injectable solution) lisinopril (lisinopril 20 mg Tab) metformin (metformin 1000 mg Tab) ondansetron (ondansetron 4 mg Dis Tab) pravastatin (pravastatin 40 mg Tab) zolpidem (zolpidem 10 mg Tab) Procedures Performed Colonoscopy, Repair of ectropion. Discharge Vitals Heart Rate (Peripheral) 106 Blood Pressure 120/67 Height 170 cm Height 67 in Weight 45.1 kg Weight 99.428 lb BMI 15.61 What to do next You Need to Schedule the Following Appointments Follow Up with Jeevan CARMONA, Tran Crouch, URL, URO When: Where: Medications What How Much When Instructions New sulfamethoxazole-tri methoprim (Bactrim D.S. 800 mg-160 mg Tab) 1 Tablets By Mouth Every 12 hours Start day prior to procedure. Pickup at [facility] New tamsulosin (tamsulosin 0.4 mg Cap) 1 Capsules By Mouth At bedtime Refills: 11 Monitor for lightheadedness or dizziness. Take 30 minutes after a meal. Pickup at [facility] Unchanged albuterol (albuterol 0.083% Inh Beba 3 mL) 6 Milliliter Inhalation Every 6 hours as needed for for wheezing Contact prescribing physician if questions or concerns Unchanged aspirin (aspirin 81 mg oral capsule) By Mouth Every 24 hours Contact prescribing physician if questions or concerns Unchanged budesonide/ formoterol/ glycopyrrolate (Breztri Aerosphere inhalation aerosol) Inhalation 2 times a day Contact prescribing physician if questions or concerns Unchanged carvedilol (carvedilol 6.25 mg Tab) 1 Tablets By Mouth 2 times a day Contact prescribing physician if questions or concerns Unchanged hydrOXYzine (hydrOXYzine hydrochloride 25 mg Tab) 1 Tablets By Mouth Every day Contact prescribing physician if questions or concerns Unchanged insulin glargine (Lantus Solostar Pen 100 units/ mL subcutaneous solution) 10 Units INJECT EIGHT UNITS SUBCUTANEOUSLY (UNDER THE SKIN) DAILY AT BEDTIME. Contact prescribing physician if questions or concerns Unchanged insulin lispro (HumaLOG 100 units/ mL injectable solution) 10 Units Subcutaneous Before meals Contact prescribing physician if questions or concerns Unchanged lisinopril (lisinopril 20 mg Tab) 1 Tablets By Mouth Every day Contact prescribing physician if questions or concerns Unchanged metformin (metformin 1000 mg Tab) 1 Tablets Contact prescribing physician if questions or concerns Unchanged ondansetron (ondansetron 4 mg Dis Tab) 1 Tablets Contact prescribing physician if questions or concerns Unchanged pravastatin (pravastatin 40 mg Tab) 1 Tablets By Mouth Once a day (at bedtime) Contact prescribing physician if questions or concerns Unchanged zolpidem (zolpidem 10 mg Tab) 1 Tablets Contact prescribing physician if questions or concerns Pharmacy Information [facility]: [address], [place] [id number] [phone] Allergies No Known Medication Allergies Problems Ongoing - Any problem that you are currently receiving treatment for. Allergic Allergies BPH with urinary obstruction Bronchitis Chronic airway obstruction Chronic obstructive pulmonary disease (COPD) Diabetes mellitus Dyspnea Elevated PSA Esophageal reflux Essential hypertension Hyperchylomicronemia Hyperlipemia Hyperlipidemia Mastoiditis of both sides Pancreatitis Smoker Type 2 diabetes mellitus without complication Patient Survey You may receive a survey via text or e-mail asking about your office visit. Please share your experience with us by completing your survey. We appreciate your feedback and thank you for choosing us for your care. Education Materials Transrectal Ultrasound-Guided Prostate Biopsy A transrectal ultrasound-guided prostate biopsy is a procedure to remove samples of prostate tissue for testing. The prostate is a walnut-sized gland that is located below the bladder and in front of the rectum. During this procedure, a small device (probe) is lubricated and put inside the rectum. The probe sends out sound waves that make a picture of the prostate and surrounding tissues (transrectal ultrasound). The images are used to help guide the process of removing t (more content not included)... Normal [facility] Laboratory - Hematology and Cell countson 12-09-2024 HbA1c (Bld) [Mass fraction] 7.6 % [facility] [employer] No Panel Informationon 12-09 Ecorithm e BASIC METABOLIC PANELon 11-24 Calcium [Mass/Vol] 8.5 mg/dL Low 8.6-10.3 [facility] Comment on above: Performed By: #### 1 [id number] #### [facility] [place] [address] Skilled Labor: Vito Fragoso MD Chloride [Moles/Vol] 105 mmol/L Normal 98-110 [facility] Comment on above: Performed By: #### 1 0165 #### [facility] [place] [address] Skilled Labor: Vito Fragoso MD CO2 [Moles/Vol] 25 mmol/L Normal 20-32 [facility] Comment on above: Performed By: #### 1 0165 #### [facility] [place] [address] Skilled Labor: Vito Fragoso MD Creatinine [Mass/Vol] 1.53 mg/dL High 0.70-1.28 [facility] Comment on above: Performed By: #### 1 0165 #### [facility] [place] [address] Skilled Labor: Vito Fragoso MD GFR/1.73 sq M.predicted among non-blacks MDRD (S/P/Bld) [Vol rate/Area] 47 mL/min/{1.73_m2} Low > OR = 60 [facility] Comment on above: Performed By: #### 1 0165 #### [facility] [place] [address] Skilled Labor: Vito Fragoso MD Glucose [Mass/Vol] 205 mg/dL High 65-99 [facility] Comment on above: Result Comment: Fasting reference interval For someone without known diabetes, a glucose value >125 mg/dL indicates that they may have diabetes and this should be confirmed with a follow-up test. Performed By: #### 1 0165 #### [facility] [place] [address] Skilled Labor: Vito Fragoso MD Potassium [Moles/Vol] 5.1 mmol/L Normal 3.5-5.3 [facility] Comment on above: Performed By: #### 1 0165 #### [facility] [place] [address] Skilled Labor: Vito Fragoso MD Sodium [Moles/Vol] 139 mmol/L Normal 135-146 [facility] Comment on above: Performed By: #### 1 0165 #### [facility] [place] [address] Skilled Labor: Vito Fragoso MD Urea nitrogen [Mass/Vol] 33 mg/dL High 7-25 [facility] Comment on above: Performed By: #### 1 0165 #### [facility] [place] [address] Skilled Labor: Vito Fragoso MD Urea nitrogen/Creatinine [Mass ratio] 22 mg/mg Normal 6-22 [facility] Comment on above: Performed By: #### 1 0165 #### [facility] [place] [address] Skilled Labor: Vito Fragoso MD PSA (FREE AND TOTAL)on 12-05 PSA, % FREE NOT CALCULATED Normal >25 [facility] Comment on above: Result Comment: PSA(ng/mL) Free PSA(%) Estimated(x) Probability of Cancer(as%) 0-2.5 (*) Approx. 1 2.6-4.0(1) 0-27(2) 24(3) 4.1-10(4) 0-10 56 11-15 28 16-20 20 21-25 16 >or =26 8 >10(+) N/A >50 References:(1)Martinez et al.:Urology 60: 469-474 (2001) (2)Martinez et al.:J.Urol 168: 922-925 (2001) Free PSA(%) Sensitivity(%) Specificity(%) < or = 25 85 19 < or = 30 93 9 (3)Kvngona et al.:ARMANDO 277: 8812-6222 (1996) (4)Catalona et al.:ARMANDO 279: 4319-0438 (1997) (x)These estimates vary with age, ethnicity, [...] mind. PSA was performed using the Evaristo Gianni Immunoassay method. Values obtained from different assay methods cannot be used interchangeably. PSA levels, regardless of value, should not be interpreted as absolute evidence of the presence or absence of disease. Performed By: #### 3 [id number] #### [facility] [address], [address] [place] [phone] Skilled Labor: Vito Fragoso MD PSA, FREE 4.6 ng/mL Normal [facility] Comment on above: Performed By: #### 3 7578 #### [facility] [address] [place] [address], [address] [place] [phone] Skilled Labor: Vito Fragoso MD PSA, TOTAL 31.0 ng/mL High < OR = 4.0 [facility] Comment on above: Performed By: #### 3 1348 #### [facility] [address], [address] [place] [address] Skilled Labor: Vito Fragoso MD Provider Letteron 08-26-2024 Provider Letter Provider Letter August 26, 2024 FREIDA DOUGHERTY [address] [place] [id number] : 1950 Dear Freida, We have been trying to reach you with no success. It is important that you return our call regarding your recent referral upon receiving this letter. Also, at the time of your call, please provide us with your current information. Thank you for your prompt attention to this matter. Sincerely, [facility] [place] [address] [address] [place] [address] Phone ~[phone], option #3 Fax ~[phone] Normal [facility] ALBUMIN, RANDOM URINE W/CREA TININEon 07-28-2024 ALBUMIN, URINE 1.0 mg/dL Normal See Note: [facility] Comment on above: Result Comment: Refe rence Range: Reference Range Not established Performed By: #### 4 96, 7600, 55439, 6517, 6399 #### [facility] [address], [address] [place] [address] Skilled Labor: Vito Fragoso MD ALBUMIN/CREATININE RATIO, RANDOM URINE [...] category. Performed By: #### 4 96, 7600, 96618, 6517, 6399 #### [facility] [address], [address] [place] [address] Skilled Labor: Vito Fragoso MD Creatinine (U) [Mass/Vol] 61 mg/dL Normal 20-320 [facility] Comment on above: Performed By: #### 4 96, 7600, 76698, 6517, 6399 #### [facility] of [place] [address] Skilled Labor: Vito Fragoso MD CBC (INCLUDES DIFF/PLT)on Basophils (Bld) [#/Vol] 0.023 10*3/uL Normal 0-200 [facility] Comment on above: Performed By: #### 4 96, 7600, 01176, 6517, 6399 #### [facility] of [address], [address] [place] [address] Skilled Labor: Vito Fragoso MD Basophils/100 WBC (Bld) 0.4 % Normal [facility] Comment on above: Performed By: #### 4 96, 7600, 11586, 6517, 6399 #### [facility] of [address], [address] [place] [address] Skilled Labor: Vito Fragoso MD Eosinophils (Bld) [#/Vol] 0.194 10*3/uL Normal 15-500 [facility] Comment on above: Performed By: #### 4 96, 7600, 68058, 6517, 6399 #### [facility] of [address], [address] [place] [address] Skilled Labor: Vito Fragoso MD Eosinophils/100 WBC (Bld) 3.4 % Normal [facility] Comment on above: Performed By: #### 4 96, 7600, 62268, 6517, 6399 #### [facility] [place] [address] Skilled Labor: Vito Fragoso MD Erythrocyte distribution width (RBC) [Ratio] 12.8 % Normal 11.0-15.0 [facility] Comment on above: Performed By: #### 4 96, 7600, 90616, 6517, 6399 #### [facility] of [place] [address] Skilled Labor: Vito Fragoso MD Hematocrit (Bld) [Volume fraction] 34.8 % Low 38.5-50.0 [facility] Comment on above: Performed By: #### 4 96, 7600, 23558, 65, 6399 #### [facility] [place] [address] Skilled Labor: Vito Fragoso MD Hemoglobin (Bld) [Mass/Vol] 11.2 g/dL Low 13.2-17.1 [facility] Comment on above: Performed By: #### 4 96, 7600, 53062, 65, 6399 #### [facility] [place] [address] Skilled Labor: Vito Fragoso MD Lymphocytes (Bld) [#/Vol] 1.34 10*3/uL Normal 850-3900 [facility] Comment on above: Performed By: #### 4 96, 7600, , 6516, 6399 #### [facility] [place] [address] Skilled Labor: Vito Fragoso MD Lymphocytes/100 WBC (Bld) 23.5 % Normal [facility] Comment on above: Performed By: #### 4 96, 7600, 16376, 65, 6399 #### [facility] [place] [address] Skilled Labor: Vito Fragoso MD MCH (RBC) [Entitic mass] 32.0 pg Normal 27.0-33.0 [facility] Comment on above: Performed By: #### 4 96, 7600, 06721, 65, 6399 #### [facility] [place] [address] Skilled Labor: Vito Fragoso MD MCHC (RBC) [Mass/Vol] 32.2 [...] condition. Performed By: #### 4 96, 7600, 74808, 6517, 6399 #### [facility] [place] [address] Skilled Labor: Vito Fragoso MD MCV (RBC) [Entitic vol] 99.4 fL Normal 80.0-100.0 [facility] Comment on above: Performed By: #### 4 96, 7600, 88823, 17, 6399 #### [facility] [place] [address] Skilled Labor: Vito Fragoso MD Monocytes (Bld) [#/Vol] 0.422 10*3/uL Normal 200-950 [facility] Comment on above: Performed By: #### 4 96, 7600, 01616, 17, 6399 #### [facility] [place] [address] Skilled Labor: Vito Fragoso MD Monocytes/100 WBC (Bld) 7.4 % Normal [facility] Comment on above: Performed By: #### 4 96, 7600, 12800, 6517, 6399 #### [facility] [place] [address] Skilled Labor: Vito Fragoso MD Neutrophils (Bld) [#/Vol] 3.722 10*3/uL Normal 3417-6324 [facility] Comment on above: Performed By: #### 4 96, 7600, 55064, 6517, 6399 #### [facility] [place] [address] Skilled Labor: Vito Fragoso MD Neutrophils/100 WBC (Bld) 65.3 % Normal [facility] Comment on above: Performed By: #### 4 96, 7600, 63880, 6517, 6399 #### [facility] [place] [address] Skilled Labor: Vito Fragoso MD Platelet mean volume (Bld) [Entitic vol] 10.5 fL Normal 7.5-12.5 [facility] Comment on above: Performed By: #### 4 96, 7600, 97391, 6517, 6399 #### [facility] [place] [address] Skilled Labor: Vito Fragoso MD Platelets (Bld) [#/Vol] 201 10*3/uL Normal 140-400 [facility] Comment on above: Performed By: #### 4 96, 7600, 28283, 6517, 6399 #### [facility] [place] [address] Skilled Labor: Vito Fragoso MD RBC (Bld) [#/Vol] 3.50 10*6/uL Low 4.20-5.80 [facility] Comment on above: Performed By: #### 4 96, 7600, 97183, 6517, 6399 #### [facility] [place] [address] Skilled Labor: Vito Fragoso MD WBC (Bld) [#/Vol] 5.7 10*3/uL Normal 3.8-10.8 [facility] Comment on above: Performed By: #### 4 96, 7600, 11436, 6517, 6399 #### [facility] [place] [address] Skilled Labor: Vito Fragoso MD [facility] Albumin [Mass/Vol] 4.0 g/dL Normal 3.6-5.1 [facility] Comment on above: Performed By: #### 4 96, 7600, 36141, 6517, 6399 #### [facility] of [place] [address] Skilled Labor: Vito Fragoso MD Albumin/Globulin [Mass ratio] 1.8 {ratio} Normal 1.0-2.5 [facility] Comment on above: Performed By: #### 4 96, 7600, 41974, 6517, 6399 #### [facility] of [address] [place] [address] Skilled Labor: Vito Fragoso MD ALP [Catalytic activity/Vol] 69 U/L Normal 35-144 [facility] Comment on above: Performed By: #### 4 96, 7600, 53139, 6517, 6399 #### [facility] of [address], [address] [place] [address] Skilled Labor: Vito Fragoso MD ALT [Catalytic activity/Vol] 9 U/L Normal 9-46 [facility] Comment on above: Performed By: #### 4 96, 7600, 16070, 6517, 6399 #### [facility] of [address], [address] [place] [address] Skilled Labor: Vito Fragoso MD AST [Catalytic activity/Vol] 14 U/L Normal 10-35 [facility] Comment on above: Performed By: #### 4 96, 7600, 44912, 6517, 6399 #### [facility] of [address], [address] [place] [address] Skilled Labor: Vito Fragoso MD Bilirubin [Mass/Vol] 0.5 mg/dL Normal 0.2-1.2 [facility] Comment on above: Performed By: #### 4 96, 7600, 82154, 6517, 6399 #### [facility] of [address], [address] [place] [address] Skilled Labor: Vito Fragoso MD Calcium [Mass/Vol] 9.1 mg/dL Normal 8.6-10.3 [facility] Comment on above: Performed By: #### 4 96, 7600, 78444, 6517, 6399 #### [facility] of [place] [address] Skilled Labor: Vito Fragoso MD Chloride [Moles/Vol] 108 mmol/L Normal 98-110 [facility] Comment on above: Performed By: #### 4 96, 7600, 35004, 6517, 6399 #### [facility] of [address], [address] [place] [address] Skilled Labor: Vito Fragoso MD CO2 [Moles/Vol] 24 mmol/L Normal 20-32 [facility] Comment on above: Performed By: #### 4 96, 7600, 45043, 6517, 6399 #### [facility] [place] [address] Skilled Labor: Vito Fragoso MD Creatinine [Mass/Vol] 1.33 mg/dL High 0.70-1.28 [facility] Comment on above: Performed By: #### 4 96, 7600, 17714, 6517, 6399 #### [facility] [place] [address] Skilled Labor: Vito Fragoso MD GFR/1.73 sq M.predicted among non-blacks MDRD (S/P/Bld) [Vol rate/Area] 56 mL/min/{1.73_m2} Low > OR = 60 [facility] Comment on above: Performed By: #### 4 96, 7600, 43422, 6517, 6399 #### [facility] [place] [address] Skilled Labor: Vito Fragoso MD Globulin (S) [Mass/Vol] 2.2 g/dL Normal 1.9-3.7 [facility] Comment on above: Performed By: #### 4 96, 7600, 66682, 6517, 6399 #### [facility] [place] [address] Skilled Labor: Vito Fragoso MD Glucose [Mass/Vol] 73 mg/dL Normal 65-99 [facility] Comment on above: Result Comment: Fasting reference interval Performed By: #### 4 96, 7600, 56366, 6517, 6399 #### [facility] of [place] [address] Skilled Labor: Vito Fragoso MD Potassium [Moles/Vol] 5.3 mmol/L Normal 3.5-5.3 [facility] Comment on above: Performed By: #### 4 96, 7600, 40628, 6517, 6399 #### [facility] [place] [address] Skilled Labor: Vito Fragoso MD Protein [Mass/Vol] 6.2 g/dL Normal 6.1-8.1 [facility] Comment on above: Performed By: #### 4 96, 7600, 19458, 6517, 6399 #### [facility] [place] [address] Skilled Labor: Vito Fragoso MD Sodium [Moles/Vol] 140 mmol/L Normal 135-146 [facility] Comment on above: Performed By: #### 4 96, 7600, 45054, 6517, 6399 #### [facility] [place] [address] Skilled Labor: Vito Fragoso MD Urea nitrogen [Mass/Vol] 36 mg/dL High 7-25 [facility] Comment on above: Performed By: #### 4 96, 7600, 72746, 6517, 6399 #### [facility] [place] [address] Skilled Labor: Vito Fragoso MD Urea nitrogen/Creatinine [Mass ratio] 27 mg/mg High 6-22 [facility] Comment on above: Performed By: #### 4 96, 7600, 40459, 6517, 6399 #### [facility] [place] [address] Skilled Labor: Vito Fragoso MD HEMOGLOBIN A1con 07-28-2024 HbA1c [...] children. Performed By: #### 4 96, 7600, 90643, 6517, 6399 #### [facility] [address], [address] [place] [address] Skilled Labor: Vito Fragoso MD LIPID PANEL, [facility] 050 Cholesterol [Mass/Vol] 83 mg/dL Normal <200 [facility] Comment on above: Order Comment: FASTI NG:YES FASTING: YES Performed By: #### 4 96, 7600, 67081, 6517, 6399 #### [facility] [address], [address] [place] [address] Skilled Labor: Vito Fragoso MD Cholesterol in HDL [Mass/Vol] 29 mg/dL Low > OR = 40 [facility] Comment on above: Order Comment: FASTI NG:YES FASTING: YES Performed By: #### 4 96, 7600, 10963, 6517, 6399 #### [facility] [address], [address] [place] [address] Skilled Labor: Vito Fragoso MD Cholesterol in LDL [Mass/Vol] [...] LDL-C. Len CAMPA et al. ARMANDO. 2013;310(19): 0296-4822 (http://[email or web address]/faq/EHT258) Performed By: #### 4 96, 7600, 22630, 6517, 6399 #### [facility] [address], [address] [place] [address] Skilled Labor: Vito Fragoos MD Cholesterol.total/C holesterol in HDL [Mass ratio] 2.9 {ratio} Normal <5.0 [facility] Comment on above: Order Comment: FASTI NG:YES FASTING: YES Performed By: #### 4 96, 7600, 94102, 6517, 6399 #### [facility] [address], [address] [place] [address] Skilled Labor: Vito Fragoso MD NON HDL CHOLESTEROL 54 mg/dL (calc) Normal <130 [facility] Comment on above: Order Comment: FASTI NG:YES FASTING: YES Result Comment: For patients with diabetes plus 1 major ASCVD risk factor, treating to a non-HDL-C goal of <100 mg/dL (LDL-C of <70 mg/dL) is considered a therapeutic option. Performed By: #### 4 96, 7600, 54792, 6517, 6399 #### [facility] [place] [address] Skilled Labor: Vito Fragoso MD Triglyceride [Mass/Vol] 125 mg/dL Normal <150 [facility] Comment on above: Order Comment: FASTI NG:YES FASTING: YES Performed By: #### 4 96, 7600, 41184, 6517, 6399 #### [facility] [place] [address] Skilled Labor: Vito Fragoso MD PSA, TOTALon 07-28-2024 PSA, TOTAL 21.90 ng/mL High < OR = 4.00 [facility] Comment on above: Result Comment: The total PSA value from this assay system is standardized against the WHO standard. The test result will be approximately 20% lower when compared to the equimolar-standardized total PSA (Evaristo [place]). Comparison of serial PSA results should be interpreted with this fact in mind. This test was performed using the Siemens chemiluminescent method. Values obtained from different assay methods cannot be used interchangeably. PSA levels, regardless of value, should not be interpreted as absolute evidence of the presence or absence of disease. Performed By: #### 4 96, 7600, 69710, 6517, 6399 #### [facility] [place] [address] Skilled Labor: Vito Fragoso MD Laboratory - Hematology and Cell countson 02-05-2024 HbA1c (Bld) [Mass fraction] 6.6 % [facility] No Panel Informationon 02-04 Interpretation and review of laboratory results Abnormal [facility]-2022 Natriuretic peptide B (Bld) [Mass/Vol] 752.0 pg/mL Normal <=900.0 [facility] Comment on above: Performed By: #### C MREP #### [facility] [address] [place] [address] Dr. Jh Boudreaux CBC AUTO DIFFon 03-24-2022 BASO # 0.1 103/ul Normal 0.0-0.1 [facility] Comment on above: Performed By: #### C BC #### [facility] [address] [place] [address] Dr. Jh Boudreaux Basophils/100 WBC (Bld) 0.6 % Normal 0.2-2.0 [facility] Comment on above: Performed By: #### C BC #### [facility] [address] [place] [address] Dr. Jh Boudreaux EO # 0.4 103/ul Normal 0.0-0.7 [facility] Comment on above: Performed By: #### C BC #### [facility] [address] [place] [address] Dr. Jh Boudreaux Eosinophils/100 WBC (Bld) 4.5 % Normal 0.9-7.0 [facility] Comment on above: Performed By: #### C BC #### [facility] [address] [place] [address] Dr. Jh Boudreaux Erythrocyte distribution width (RBC) [Ratio] 12.5 % Normal 11.0-15.0 [facility] Comment on above: Performed By: #### C BC #### [facility] [address] [place] [address] Dr. Jh Boudreaux Hematocrit (Bld) [Volume fraction] 38.9 % Critically low 42.0-54.0 [facility] Comment on above: Performed By: #### C BC #### [facility] [address] [place] [address] Dr. Jh Boudreaux Hemoglobin (Bld) [Mass/Vol] 13.3 g/dL Critically low 14.0-18.0 [facility] Comment on above: Performed By: #### C BC #### [facility] [address] [place] [address] Dr. Jh Boudreaux IG # 0.03 10e3/ul Normal 0.00-0.03 [facility] Comment on above: Performed By: #### C BC #### [facility] [address] [place] [address] Dr. Jh Boudreaux IG % 0.4 % Normal 0.0-0.5 [facility] Comment on above: Performed By: #### C BC #### [facility] [address] [place] [address] Dr. Jh Boudreaux LYMPH # 1.4 103/ul Normal 1.2-3.8 [facility] Comment on above: Performed By: #### C BC #### [facility] [address] [place] [address] Dr. Jh Boudreaux Lymphocytes/100 WBC (Bld) 16.9 % Critically low 20.5-60.0 [facility] Comment on above: Performed By: #### C BC #### [facility] [address] [place] [address] Dr. Jh Boudreaux MANUAL DIFF REQ NO Normal [facility] Comment on above: Performed By: #### C BC #### [facility] [address] [place] [address] Dr. Jh Boudreaux MCH (RBC) [Entitic mass] 29.6 pg Normal 25.9-34.0 [facility] Comment on above: Performed By: #### C BC #### [facility] [address] [place] [address] Dr. Jh Boudreaux MCHC (RBC) [Mass/Vol] 34.2 g/dL Normal 29.9-35.2 [facility] Comment on above: Performed By: #### C BC #### [facility] [address] [place] [address] Dr. Jh Boudreaux MCV (RBC) [Entitic vol] 86.6 fL Normal 80.0-94.0 [facility] Comment on above: Performed By: #### C BC #### [facility] [address] [place] [address] Dr. Jh Boudreaux MONO # 0.8 103/ul Normal 0.3-0.8 [facility] Comment on above: Performed By: #### C BC #### [facility] [address] [place] [address] Dr. Jh Boudreaux Monocytes/100 WBC (Bld) 10.2 % Normal 1.7-12.0 [facility] Comment on above: Performed By: #### C BC #### [facility] [address] [place] [address] Dr. Jh Boudreaux NEUT # 5.6 103/ul Normal 1.4-6.5 [facility] Comment on above: Performed By: #### C BC #### [facility] [address] [place] [address] Dr. Jh Boudreaux Neutrophils/100 WBC (Bld) 67.4 % Normal 43.0-75.0 [facility] Comment on above: Performed By: #### C BC #### [facility] [address] [place] [address] Dr. Jh Boudreaux Platelet mean volume (Bld) [Entitic vol] 9.9 fL Normal 9.5-13.5 [facility] Comment on above: Performed By: #### C BC #### [facility] [address] [place] [address] Dr. Jh Boudreaux PLT 182 103/ul Normal 150-450 [facility] Comment on above: Performed By: #### C BC #### [facility] [address] [place], [place] [id number] Dr. Jh Boudreaux RBC 4.49 106/ul Critically low 4.70-6.10 [facility] Comment on above: Performed By: #### C BC #### [facility] [address] [place] [address] Dr. Jh Boudreaux WBC 8.3 103/ul Normal 4.0-11.0 [facility] Comment on above: Performed By: #### C BC #### [facility] [address] [place] [address] [address] Jh Boudreaux [facility] SARS-CoV-2 (COVID-19) RNA PETER+probe Ql (Unsp spec) Not detected Normal NOT DETECTED [facility] Comment on above: Result Comment: When [...] for this test is supported by the Vessel Manager of Health and Human Service's declaration that [...] used). Performed By: #### C VDTB #### [facility] [address] [place] [address] [address] Jh Boudreaux INFLUENZA A AND B AGon 03-24 [facility] SEE BELOW Normal [facility] Comment on above: Result Comment: Nega tive for Flu A protein angiten. Infection due to Flu A cannot be ruled out. Flu A angiten in the sample may be below the detection limit of the test. Performed By: #### I NFLUAB #### [facility] [address] [place] [address] [address] Jh Boudreaux INFLUBNEG SEE BELOW Normal [facility] Comment on above: Result Comment: Nega tive for Flu B protein antigen. Infection due to Flu B cannot be ruled out. Flu B antigen in the sample may be below the detection limit of the test. Performed By: #### I NFLUAB #### [facility] [address] [place] [address] Dr. Jh Boudreaux INFLUENZA A AG Negative Normal NEGATIVE SEE COMMENT [facility] Comment on above: Performed By: #### I NFLUAB #### [facility] [address] [place] [address] [address] Jh Boudreaux INFLUENZA B AG Negative Normal NEGATIVE SEE COMMENT [facility] Comment on above: Performed By: #### I NFLUAB #### [facility] [address] [place] [address] [address] Jh Boudreaux POINT OF CARE GLUCOSEon 02-25 Glucose [Mass/Vol] 215 mg/dL Critically high 74-106 T [facility] Comment on above: Performed By: #### B DENISE, HSTROPN #### [facility] [address] [place] [address] Dr. Jh Boudreaux PROF CHEM 8 (BAS METB)on Anion gap [Moles/Vol] 12.2 mmol/L Normal [facility] Comment on above: Performed By: #### B MP, HSTROPN #### [facility] [address] [place] [address] Dr. Jh Boudreaux Calcium [Mass/Vol] 8.9 mg/dL Normal 8.5-10.1 [facility] Comment on above: Performed By: #### B DENISE, HSTROPN #### [facility] [address] [place] [address] Dr. Jh Boudreaux Chloride [Moles/Vol] 98 mmol/L Normal 98-107 [facility] Comment on above: Performed By: #### B MP, HSTROPN #### [facility] [address] [place] [address] Dr. Jh Boudreaux CO2 [Moles/Vol] 27.9 mmol/L Normal 21.0-32.0 [facility] Comment on above: Performed By: #### B MP, HSTROPN #### [facility] [address] [place] [address] Dr. Jh Boudreaux Creatinine [Mass/Vol] 1.24 mg/dL Normal 0.70-1.30 [facility] Comment on above: Performed By: #### B MP, HSTROPN #### [facility] [address] [place] [address] [address] Jh Boudreaux EGFR-AF CAMBODIAN >60 Normal >=60 [facility] Comment on above: Performed By: #### B MP, HSTROPN #### [facility] [address] [place] [address] [address] Jh Boudreaux EGFR-NON AF CAMBODIAN 57 mL/min/1.73m2 Critically low >=60 [facility] Comment on above: Performed By: #### B DENISE, HSTROPN #### [facility] [address] [place] [address] Dr. Jh Boudreaux Glucose [Mass/Vol] 62 mg/dL Critically low 74-106 Th [facility] Comment on above: Performed By: #### B DENISE, HSTROPN #### [facility] [address] [place] [address] Dr. Jh Boudreaux Potassium [Moles/Vol] 5.1 mmol/L Normal 3.5-5.1 [facility] Comment on above: Performed By: #### B DENISE, HSTROPN #### [facility] [address] [place] [address] Dr. Jh Boudreaux Sodium [Moles/Vol] 133 mmol/L Critically low 136-145 Th [facility] Comment on above: Performed By: #### B DENISE, HSTROPN #### [facility] [address] [place] [address] Dr. Jh Boudreaux Urea nitrogen [Mass/Vol] 23.0 mg/dL Critically high 7.0-18.0 [facility] Comment on above: Performed By: #### B DENISE, HSTROPN #### [facility] [address] [place] [address] Dr. Jh Boudreaux Urea nitrogen/Creatinine [Mass ratio] 18.5 mg/mg Normal [facility] Comment on above: Performed By: #### B DENISE, HSTROPN #### [facility] [address] [place] [address] Dr. Jh Boudreaux TROPONIN, HIGH SENSITIVITYon 03-24-2022 HSTROP 11.5 pg/mL Normal 4.0-76.1 [facility] Comment on above: Result Comment: CUT- OFF POINTS HAVE BEEN ESTABLISHED BASED ON THE FOURTH UNIVERSAL DEFINITIONS OF MYOCARDIAL INFARCTION. THE UPPER REFERENCE LIMIT (URL) OF TROPONIN, DEFINED THE 99TH PERCENTILE OF cTnI DISTRIBUTION IN A REFERENCE POPULATION, HAS BEEN CONFIRMED THE DECISION THRESHOLD FOR ID DIAGNOSIS. Performed By: #### B MP, HSTROPN #### [facility] [address] [place] [address] [address] Jh Boudreaux XR CHEST 1 Von [...] IWONA WARNER Date: 2022-03-24 18:37 Normal [facility] CARDIAC ADITHYA 3-6on 2 CK [Catalytic activity/Vol] 32 U/L Critically low 55-170 [facility] Comment on above: Performed By: #### C MREP #### [facility] [address] [place] [address] [address] Jh Boudreaux CK.MB [Mass/Vol] 1.72 ng/mL Normal <=2.37 [facility] Comment on above: Performed By: #### C MREP #### [facility] [address] [place] [address] [address] Jh Boudreaux HSTROP 69.6 pg/mL Critically high 4.0-42.2 [facility] Comment on above: Result Comment: CUT- OFF POINTS HAVE BEEN ESTABLISHED BASED ON THE FOURTH UNIVERSAL DEFINITIONS OF MYOCARDIAL INFARCTION. THE UPPER REFERENCE LIMIT (URL) OF TROPONIN, DEFINED THE 99TH PERCENTILE OF cTnI DISTRIBUTION IN A REFERENCE POPULATION, HAS BEEN CONFIRMED THE DECISION THRESHOLD FOR ID DIAGNOSIS. Performed By: #### C MREP #### [facility] [address] [place] [address] [address] Jh Boudreaux CK [Catalytic activity/Vol] 29 U/L Critically low 55-170 [facility] Comment on above: Performed By: #### C MREP #### [facility] [address] [place] [address] [address] Jh Boudreaux CK.MB [Mass/Vol] 1.57 ng/mL Normal <=2.37 [facility] Comment on above: Performed By: #### C MREP #### [facility] [address] [place] [address] [address] Jh Boudreaux HSTROP 39.9 pg/mL Normal 4.0-42.2 [facility] Comment on above: Result Comment: CUT- OFF POINTS HAVE BEEN ESTABLISHED BASED ON THE FOURTH UNIVERSAL DEFINITIONS OF MYOCARDIAL INFARCTION. THE UPPER REFERENCE LIMIT (URL) OF TROPONIN, DEFINED THE 99TH PERCENTILE OF cTnI DISTRIBUTION IN A REFERENCE POPULATION, HAS BEEN CONFIRMED THE DECISION THRESHOLD FOR ID DIAGNOSIS. Performed By: #### C MREP #### [facility] [address] [place] [address] Dr. Jh Boudreaux CARDIAC ADITHYA ADMITon 022 CK [Catalytic activity/Vol] 32 U/L Critically low 55-170 [facility] Comment on above: Performed By: #### B MP, HSTROPN #### [facility] [address] [place] [address] Dr. Jh Boudreaux CK.MB [Mass/Vol] 1.15 ng/mL Normal <=2.37 [facility] Comment on above: Performed By: #### B MP, HSTROPN #### [facility] [address] [place] [address] Dr. Jh Boudreaux HSTROP 11.9 pg/mL Normal 4.0-42.2 [facility] Comment on above: Result Comment: CUT- OFF POINTS HAVE BEEN ESTABLISHED BASED ON THE FOURTH UNIVERSAL DEFINITIONS OF MYOCARDIAL INFARCTION. THE UPPER REFERENCE LIMIT (URL) OF TROPONIN, DEFINED THE 99TH PERCENTILE OF cTnI DISTRIBUTION IN A REFERENCE POPULATION, HAS BEEN CONFIRMED THE DECISION THRESHOLD FOR ID DIAGNOSIS. Performed By: #### B DENISE HSTROPN #### [facility] [address] [address] [address] Jh Boudreaux GENA 25.0 ng/mL Normal <=121.0 [facility] Comment on above: Performed By: #### B DENISE HSTROPN #### [facility] [address] [address] [address] Jh Boudreaux CBC AUTO DIFFon 05-19-2021 BASO # 0.0 103/ul Normal 0.0-0.1 [facility] Comment on above: Performed By: #### C BC #### [facility] [address] [address] [address] Jh Boudreaux Basophils/100 WBC (Bld) 0.3 % Normal 0.2-2.0 [facility] Comment on above: Performed By: #### C BC #### [facility] [address] [place] [address] Dr. Jh Boudreaux EO # 0.2 103/ul Normal 0.0-0.7 [facility] Comment on above: Performed By: #### C BC #### [facility] [address] [place] [address] Dr. Jh Boudreaux Eosinophils/100 WBC (Bld) 2.0 % Normal 0.9-7.0 [facility] Comment on above: Performed By: #### C BC #### [facility] [address] [address] [address] Jh Boudreaux Erythrocyte distribution width (RBC) [Ratio] 12.2 % Normal 11.0-15.0 [facility] Comment on above: Performed By: #### C BC #### [facility] [address] [place] [address] Dr. Jh Boudreaux Hematocrit (Bld) [Volume fraction] 33.7 % Critically low 42.0-54.0 [facility] Comment on above: Performed By: #### C BC #### [facility] [address] [place] [address] Dr. Jh Boudreaux Hemoglobin (Bld) [Mass/Vol] 11.8 g/dL Critically low 14.0-18.0 [facility] Comment on above: Performed By: #### C BC #### [facility] [address] [address] [address] Jh Boudreaux IG # 0.04 10e3/ul Critically high 0.00-0.03 [facility] Comment on above: Performed By: #### C BC #### [facility] [address] [address] [address] Jh Boudreaux IG % 0.5 % Normal 0.0-0.5 [facility] Comment on above: Performed By: #### C BC #### [facility] [address] [place] [address] Dr. Jh Boudreaux LYMPH # 1.2 103/ul Normal 1.2-3.8 [facility] Comment on above: Performed By: #### C BC #### [facility] [address] [place] [address] Dr. Jh Boudreaux Lymphocytes/100 WBC (Bld) 15.3 % Critically low 20.5-60.0 [facility] Comment on above: Performed By: #### C BC #### [facility] [address] [place] [address] Dr. Jh Boudreaux MANUAL DIFF REQ NO Normal [facility] Comment on above: Performed By: #### C BC #### [facility] [address] [place] [address] Dr. Jh Boudreaux MCH (RBC) [Entitic mass] 31.6 pg Normal 25.9-34.0 [facility] Comment on above: Performed By: #### C BC #### [facility] [address] [place] [address] Dr. Jh Boudreaux MCHC (RBC) [Mass/Vol] 35.0 g/dL Normal 29.9-35.2 [facility] Comment on above: Performed By: #### C BC #### [facility] [address] [place] [address] Dr. Jh Boudreaux MCV (RBC) [Entitic vol] 90.1 fL Normal 80.0-94.0 [facility] Comment on above: Performed By: #### C BC #### [facility] [address] [address] [address] Jh Boudreaux MONO # 0.5 103/ul Normal 0.3-0.8 [facility] Comment on above: Performed By: #### C BC #### [facility] [address] [address] [address] Jh Boudreaux Monocytes/100 WBC (Bld) 6.3 % Normal 1.7-12.0 [facility] Comment on above: Performed By: #### C BC #### [facility] [address] [address] [address] Jh Boudreaux NEUT # 5.9 103/ul Normal 1.4-6.5 [facility] Comment on above: Performed By: #### C BC #### [facility] [address] [place] [address] Dr. Jh Boudreaux Neutrophils/100 WBC (Bld) 75.6 % Critically high 43.0-75.0 [facility] Comment on above: Performed By: #### C BC #### [facility] [address] [place] [address] Dr. Jh Boudreaux Platelet mean volume (Bld) [Entitic vol] 9.0 fL Critically low 9.5-13.5 [facility] Comment on above: Performed By: #### C BC #### [facility] [address] [place] [address] Dr. Jh Boudreaux PLT 164 103/ul Normal 150-450 [facility] Comment on above: Performed By: #### C BC #### [facility] [address] [address] [address] Jh Boudreaux RBC 3.74 106/ul Critically low 4.70-6.10 [facility] Comment on above: Performed By: #### C BC #### [facility] [address] [address] [address] Jh Boudreaux WBC 7.8 103/ul Normal 4.0-11.0 [facility] Comment on above: Performed By: #### C BC #### [facility] [address] [address] HEAD WO CONon [...] DELVIS LUND Date: 2021-05-19 04:40 Normal [facility]27 SARS-CoV-2 (COVID-19) RNA PETER+probe Ql (Unsp spec) Not detected Normal NOT DETECTED [facility] Comment on above: Result Comment: When diagnostic testing is negative, the possibility of a false negative should be considered in the context of a patient's recent exposures and the presence of clinical signs and symptoms consistent with SARS-CoV-2. This test is not yet approved or cleared by the [place] Food and Drug Administration (FDA). This test was developed by [employer], [place], [place]. The performance characteristics of this test were validated by The [facility]. The results are not intended to be used as the sole means for clinical diagnosis or patient management decisions. The [facility] is authorized under Clinical Laboratory Improvement [...] for this test is supported by the [place] of Health and Human Service's declaration that [...] longer be used). Performed By: #### B DENISE, HORACIO #### [facility] [address] [address] [address] Jh Boudreaux MRI BRAIN WO CONon [...] AUNDREA ADAM Date: 2021-05-19 12:42 Normal [facility] POINT OF CARE GLUCOSEon 04-27 Glucose [Mass/Vol] 76 mg/dL Normal 74-106 [facility] Comment on above: Performed By: #### B DENISE, HSTROPN #### [facility] [address] [place] [address] Dr. Jh Boudreaux Glucose [Mass/Vol] 217 mg/dL Critically high 74-106 T [facility] Comment on above: Performed By: #### C MREP #### [facility] [address] [place] [address] Dr. Jh Boudreaux PROF CHEM 8 (BAS METB)on Anion gap [Moles/Vol] 11.9 mmol/L Normal [facility] Comment on above: Performed By: #### B DENISE, HSTROPN #### [facility] [address] [place] [address] Dr. Jh Boudreaux Calcium [Mass/Vol] 8.7 mg/dL Normal 8.4-10.2 [facility] Comment on above: Performed By: #### B DENISE, HSTROPN #### [facility] [address] [place] [address] Dr. Jh Boudreaux Chloride [Moles/Vol] 101 mmol/L Normal 98-107 [facility] Comment on above: Performed By: #### B DENISE, HSTROPN #### [facility] [address] [place] [address] Dr. Jh Boudreaux CO2 [Moles/Vol] 25.4 mmol/L Normal 22.0-30.0 [facility] Comment on above: Performed By: #### B DENISE, HSTROPN #### [facility] [address] [place] [address] Dr. Jh Boudreaux Creatinine [Mass/Vol] 1.11 mg/dL Normal 0.66-1.25 [facility] Comment on above: Performed By: #### B DENISE, HSTROPN #### [facility] [address] [address] [address] Jh Boudreaux EGFR-AF CAMBODIAN >60 Normal >=60 [facility] Comment on above: Performed By: #### B DENISE, HSTROPN #### [facility] [address] [address] [address] Jh Boudreaux EGFR-NON AF CAMBODIAN >60 Normal >=60 [facility] Comment on above: Performed By: #### B DENISE, HSTROPN #### [facility] [address] [address] [address] Jh Boudreaux Glucose [Mass/Vol] 214 mg/dL Critically high 74-106 T [facility] Comment on above: Performed By: #### B DENISE, HSTROPN #### [facility] [address] [address] [address] Jh Boudreaux Potassium [Moles/Vol] 4.3 mmol/L Normal 3.4-5.0 [facility] Comment on above: Performed By: #### B DENISE, HSTROPN #### [facility] [address] [address] [address] Jh Boudreaux Sodium [Moles/Vol] 134 mmol/L Critically low 137-145 Th [facility] Comment on above: Performed By: #### B DENISE, HSTROPN #### [facility] [address] [address] [address] Jh Boudreaux Urea nitrogen [Mass/Vol] 23.0 mg/dL Critically high 9.0-20.0 [facility] Comment on above: Performed By: #### B DENISE, HSTROPN #### [facility] [address] [address] [address] Jh Boudreaux Urea nitrogen/Creatinine [Mass ratio] 20.7 mg/mg Normal [facility] Comment on above: Performed By: #### B DENISE, HSTROPN #### [facility] [address] [address] [address] Jh Boudreaux XR FOREIGN BODY EYEon 2021 XR FOREIGN BODY EYE EXAMINATION: XR FOREIGN BODY EYE HISTORY: vertigo COMPARISON: No relevant comparison available. FINDINGS: ORBITS: Negative for a metallic foreign body. OTHER: Negative. IMPRESSION: 1. No metallic foreign body within the orbits. Electronically authenticated by: OSMANY MESSINA Date: 2021-05-19 11:55 Normal [facility] XR CHEST 1 Von 05-04-2021 XR CHEST 1 V This study was read during a downtime in the [employer] PACS system. The actual time dictated and [...] department at time of imaging. Dictated by: Osmany Messina M.D. on 05/03/2021 at 14:49 Approved by: Osmany Messina M.D. on 05/03/2021 at 14:51 Electronically authenticated by: OSMANY MESSINA Date: 2021-05-04 16:13 Normal [facility] BNPon 05-03-2021 Natriuretic peptide B (Bld) [Mass/Vol] 1093.0 pg/mL Critically high <=900.0 [facility] Comment on above: Performed By: #### C MP, CMADM, BNP #### [facility] [address] [address] [address] Jh Boudreaux CARDIAC ADITHYA ADMITon 022 CK [Catalytic activity/Vol] 42 U/L Critically low 55-170 [facility] Comment on above: Performed By: #### C MP, CMADM, BNP #### [facility] [address] [address] [address] Jh Boudreaux CK.MB [Mass/Vol] 1.12 ng/mL Normal <=2.37 [facility] Comment on above: Performed By: #### C MP, CMADM, BNP #### [facility] [address] [place] [address] Dr. Jh Boudreaux HSTROP 13.3 pg/mL Normal 4.0-42.2 [facility] Comment on above: Result Comment: CUT- OFF POINTS HAVE BEEN ESTABLISHED BASED ON THE FOURTH UNIVERSAL DEFINITIONS OF MYOCARDIAL INFARCTION. THE UPPER REFERENCE LIMIT (URL) OF TROPONIN, DEFINED THE 99TH PERCENTILE OF cTnI DISTRIBUTION IN A REFERENCE POPULATION, HAS BEEN CONFIRMED THE DECISION THRESHOLD FOR ID DIAGNOSIS. Performed By: #### C MP, CMADM, BNP #### [facility] [address] [place] [address] Dr. Jh Boudreaux GENA 38.0 ng/mL Normal <=121.0 [facility] Comment on above: Performed By: #### C MP, CMADM, BNP #### [facility] [address] [place] [address] Dr. Jh Boudreaux CBC AUTO DIFFon 05-03-2021 BASO # 0.0 103/ul Normal 0.0-0.1 [facility] Comment on above: Performed By: #### C MREP #### [facility] [address] [place] [address] Dr. Jh Boudreaux Basophils/100 WBC (Bld) 0.2 % Normal 0.2-2.0 [facility] Comment on above: Performed By: #### C MREP #### [facility] [address] [place] [address] Dr. Jh Boudreaux EO # 0.2 103/ul Normal 0.0-0.7 [facility] Comment on above: Performed By: #### C MREP #### [facility] [address] [place] [address] Dr. Jh Boudreaux Eosinophils/100 WBC (Bld) 2.0 % Normal 0.9-7.0 [facility] Comment on above: Performed By: #### C MREP #### [facility] [address] [place] [address] Dr. Jh Boudreaux Erythrocyte distribution width (RBC) [Ratio] 12.4 % Normal 11.0-15.0 [facility] Comment on above: Performed By: #### C MREP #### [facility] [address] [place] [address] Dr. Jh Boudreaux Hematocrit (Bld) [Volume fraction] 37.6 % Critically low 42.0-54.0 [facility] Comment on above: Performed By: #### C MREP #### [facility] [address] [place] [address] Dr. Jh Boudreaux Hemoglobin (Bld) [Mass/Vol] 13.0 g/dL Critically low 14.0-18.0 [facility] Comment on above: Performed By: #### C MREP #### [facility] [address] [place] [address] Dr. Jh Boudreaux IG # 0.04 10e3/ul Critically high 0.00-0.03 [facility] Comment on above: Performed By: #### C MREP #### [facility] [address] [place] [address] Dr. Jh Boudreaux IG % 0.5 % Normal 0.0-0.5 [facility] Comment on above: Performed By: #### C MREP #### [facility] [address] [place] [address] Dr. Jh Boudreaux LYMPH # 1.3 103/ul Normal 1.2-3.8 [facility] Comment on above: Performed By: #### C MREP #### [facility] [address] [place] [address] Dr. Jh Boudreaux Lymphocytes/100 WBC (Bld) 14.5 % Critically low 20.5-60.0 [facility] Comment on above: Performed By: #### C MREP #### [facility] [address] [place] [address] Dr. Jh Boudreaux MANUAL DIFF REQ NO Normal [facility] Comment on above: Performed By: #### C MREP #### [facility] [address] [place] [address] Dr. Jh Boudreaux MCH (RBC) [Entitic mass] 30.8 pg Normal 25.9-34.0 [facility] Comment on above: Performed By: #### C MREP #### [facility] [address] [place] [address] Dr. Jh Boudreaux MCHC (RBC) [Mass/Vol] 34.6 g/dL Normal 29.9-35.2 [facility] Comment on above: Performed By: #### C MREP #### [facility] [address] [place] [address] Dr. Jh Boudreaux MCV (RBC) [Entitic vol] 89.1 fL Normal 80.0-94.0 [facility] Comment on above: Performed By: #### C MREP #### [facility] [address] [place] [address] Dr. Jh Boudreaux MONO # 0.7 103/ul Normal 0.3-0.8 [facility] Comment on above: Performed By: #### C MREP #### [facility] [address] [place] [address] Dr. Jh Boudreaux Monocytes/100 WBC (Bld) 7.8 % Normal 1.7-12.0 [facility] Comment on above: Performed By: #### C MREP #### [facility] [address] [place] [address] Dr. Jh Boudreaux NEUT # 6.5 103/ul Normal 1.4-6.5 [facility] Comment on above: Performed By: #### C MREP #### [facility] [address] [place] [address] Dr. Jh Boudreaux Neutrophils/100 WBC (Bld) 75.0 % Normal 43.0-75.0 [facility] Comment on above: Performed By: #### C MREP #### [facility] [address] [place] [address] Dr. Jh Boudreaux Platelet mean volume (Bld) [Entitic vol] 9.5 fL Normal 9.5-13.5 [facility] Comment on above: Performed By: #### C MREP #### [facility] [address] [place] [address] Dr. Jh Boudreaux PLT 240 103/ul Normal 150-450 [facility] Comment on above: Performed By: #### C MREP #### [facility] [address] [place] [address] Dr. Jh Boudreaux RBC 4.22 106/ul Critically low 4.70-6.10 [facility] Comment on above: Performed By: #### C MREP #### [facility] [address] [place] [address] Dr. Jh Boudreaux WBC 8.6 103/ul Normal 4.0-11.0 [facility] Comment on above: Performed By: #### C MREP #### [facility] [address] [place] [address] Dr. Jh Boudreaux CULTURE BLOODon 05-03-2021 Microscopic examination of blood, culture Culture Observations: NO GROWTH AT 5 DAYS. Normal [facility] Comment on above: Performed By: #### B DENISE, HSTROPN #### [facility] [address] [place] [address] Dr. Jh Boudreaux Microscopic examination of blood, culture Culture Observations: NO GROWTH AT 5 DAYS. Normal [facility] Comment on above: Performed By: #### B MP, HSTROPN #### [facility] [address] [place] [address] Dr. Jh Boudreaux [facility]on SARS-CoV-2 (COVID-19) RNA PETER+probe Ql (Unsp spec) Not detected Normal NOT DETECTED [facility] Comment on above: Result Comment: When diagnostic testing is negative, the possibility of a false negative should be considered in the context of a patient's recent exposures and the presence of clinical signs and symptoms consistent with SARS-CoV-2. This test is not yet approved or cleared by the [place] Food and Drug Administration (FDA). This test was developed by [employer], [place], [place]. The performance characteristics of this test were validated by The [facility]. The results are not intended to be used as the sole means for clinical diagnosis or patient management decisions. The [facility] is authorized under Clinical Laboratory Improvement [...] for this test is supported by the [place] of Health and Human Service's declaration that [...] used). Performed By: #### C MREP #### [facility] [address] [place] [address] Dr. Jh Boudreaux LACTATE/LACTIC ACIDon 2021 Lactate [Moles/Vol] 1.8 mmol/L Normal 0.7-2.0 [facility] Comment on above: Performed By: #### C MREP #### [facility] [address] [place] [address] Dr. Jh Boudreaux PROF 14(COMP METB)on 022 Albumin [Mass/Vol] 3.8 g/dL Normal 3.5-5.[address] [facility] Comment on above: Performed By: #### C MP, CMADM, BNP #### [facility] [address] [place] [address] Dr. Jh Boudreaux Albumin/Globulin [Mass ratio] 1.2 {ratio} Normal [facility] Comment on above: Performed By: #### C MP, CMADM, BNP #### [facility] [address] [place] [address] Dr. Jh Boudreaux ALP [Catalytic activity/Vol] 78 U/L Normal 38-126 [facility] Comment on above: Performed By: #### C MP, CMADM, BNP #### [facility] [address] [place] [address] Dr. Jh Boudreaux ALT [Catalytic activity/Vol] 20 U/L Critically low 21-72 [facility] Comment on above: Performed By: #### C MP, CMADM, BNP #### [facility] [address] [address] [address] Jh Boudreaux Anion gap [Moles/Vol] 13.5 mmol/L Normal [facility] Comment on above: Performed By: #### C MP, CMADM, BNP #### [facility] [address] [address] [address] Jh Boudreaux AST [Catalytic activity/Vol] 19 U/L Normal 17-59 [facility] Comment on above: Performed By: #### C MP, CMADM, BNP #### [facility] [address] [place] [address] Dr. Jh Boudreaux Bilirubin [Mass/Vol] 0.8 mg/dL Normal 0.2-1.3 [facility] Comment on above: Performed By: #### C MP, CMADM, BNP #### [facility] [address] [place] [address] Dr. Jh Boudreaux Calcium [Mass/Vol] 9.2 mg/dL Normal 8.4-10.[address] [facility] Comment on above: Performed By: #### C MP, CMADM, BNP #### [facility] [address] [place] [address] Dr. Jh Boudreaux Chloride [Moles/Vol] 96 mmol/L Critically low 98-107 [facility] Comment on above: Performed By: #### C MP, CMADM, BNP #### [facility] [address] [address] [address] Jh Boudreaux CO2 [Moles/Vol] 26.2 mmol/L Normal 22.0-30.0 [facility] Comment on above: Performed By: #### C MP, CMADM, BNP #### [facility] [address] [place] [address] Dr. Jh Boudreaux Creatinine [Mass/Vol] 0.91 mg/dL Normal 0.66-1.25 [facility] Comment on above: Performed By: #### C MP, CMADM, BNP #### [facility] [address] [address] [address] Jh Boudreaux EGFR-AF CAMBODIAN >60 Normal >=60 [facility] Comment on above: Performed By: #### C MP, CMADM, BNP #### [facility] [address] [address] [address] Jh Boudreaux EGFR-NON AF CAMBODIAN >60 Normal >=60 [facility] Comment on above: Performed By: #### C MP, CMADM, BNP #### [facility] [address] [address] [address] Jh Boudreaux Globulin (S) [Mass/Vol] 3.3 g/dL Normal [facility] Comment on above: Performed By: #### C MP, CMADM, BNP #### [facility] [address] [place] [address] Dr. Jh Boudreaux Glucose [Mass/Vol] 116 mg/dL Critically high 74-106 [facility] Comment on above: Performed By: #### C MP, CMADM, BNP #### [facility] [address] [place] [address] Dr. Jh Boudreaux Potassium [Moles/Vol] 4.7 mmol/L Normal 3.4-5.0 [facility] Comment on above: Performed By: #### C MP CMADM, BNP #### [facility] [address] [place] [address] Dr. Jh Boudreaux Protein [Mass/Vol] 7.1 g/dL Normal 6.1-8.[address] [facility] Comment on above: Performed By: #### C MP, CMADM, BNP #### [facility] [address] [place] [address] Dr. Jh Boudreaux Sodium [Moles/Vol] 131 mmol/L Critically low 137-145 [facility] Comment on above: Performed By: #### C MP, CMADM, BNP #### [facility] [address] [place] [address] Dr. Jh Boudreaux Urea nitrogen [Mass/Vol] 16.0 mg/dL Normal 9.0-20.0 [facility] Comment on above: Performed By: #### C MP CMADM, BNP #### [facility] [address] [place] [address] Dr. Jh Boudreaux Urea nitrogen/Creatinine [Mass ratio] 17.6 mg/mg Normal [facility] Comment on above: Performed By: #### C MP, CMADM, BNP #### [facility] [address] [place] [address] Dr. Jh Boudreaux PROTIMEon 05-03-2021 INR Coag (PPP) [Relative time] 1.01 {INR} Normal [facility] Comment on above: Performed By: #### C MREP #### [facility] [address] [place] [address] Dr. Jh Boudreaux INR GUIDELINES SEE BELOW Normal [facility] Comment on above: Result Comment: NADIRA RED INR: 2.0 - 3.0 CONDITIONS NOT LISTED BELOW 2.5 - 3.5 FOR PROSTHETIC HEART VALVE REPLACEMENT 2.5 - 3.5 RECURRENT THROMBOSIS Performed By: #### C MREP #### [facility] [address] [place] [address] Dr. Jh Boudreaux PT Coag (PPP) [Time] 10.9 s Normal 9.0-11.6 [facility] Comment on above: Performed By: #### C MREP #### [facility] [address] [place] [address] Dr. Jh Boudreaux PTTon 05-03-2021 aPTT Coag (Bld) [Time] 27.1 s Normal 22.3-36.2 [facility] Comment on above: Performed By: #### C MREP #### [facility] [address] [place] [address] Dr. Jh Boudreaux Vital Signs Date Time Vital Sign Value Performing Clinician J Luis wesley 12-18-2024 14:35-0400 Body height 170.2 cm LizzetteTandemmike Zyngenia Work Phone: [facility] 12-18-2024 14:35-0400 Body mass index (BMI) [Ratio] 15.19 kg/m2 LizzetteTandemmike DO Work Phone: [facility] 12-18-2024 14:35-0400 Body weight 44 kg Lizzette Goldberg DO Work Phone: [facility] 12-09-2024 10:58-0400 Body height 167.6 cm Laura Shea MD Work Phone: [facility] 12-09-2024 10:58-0400 Body mass index (BMI) [Ratio] 16.14 kg/m2 Laura Shea MD Work Phone: [facility] 12-09-2024 10:58-0400 Body weight 45.36 kg Laura Shea MD Work Phone: [facility] 12-09-2024 10:58-0400 Diastolic blood pressure 60 mm[Hg] Laura Shea MD Work Phone: [facility] 12-09-2024 10:58-0400 Heart rate 86 /min Laura Shea MD Work Phone: [facility] 12-09-2024 10:58-0400 SaO2% (BldA) [Mass fraction] 96 % Laura Shea MD Work Phone: [facility] 12-09-2024 10:58-0400 Systolic blood pressure 122 mm[Hg] Laura Shea MD Work Phone: [facility] 12-02-2024 10:05-0400 Body height 167.6 cm Agnieszka Hemmer PA Work Phone: [facility] 12-02-2024 10:05-0400 Body mass index (BMI) [Ratio] 16.14 kg/m2 Agnieszka Hemmer PA Work Phone: [facility] 12-02-2024 10:05-0400 Body weight 45.36 kg Agnieszka Hemmer PA Work Phone: [facility] 12-02-2024 10:05-0400 Diastolic blood pressure 76 mm[Hg] Agnieszka Hemmer PA Work Phone: [facility] 12-02-2024 10:05-0400 Heart rate 120 /min Agnieszka Hemmer PA Work Phone: [facility] 12-02-2024 10:05-0400 Respiratory rate 16 /min Agnieszka Hemmer PA Work Phone: [facility] 12-02-2024 10:05-0400 SaO2% (BldA) [Mass fraction] 99 % Agnieszka Hemmer PA Work Phone: [facility] 12-02-2024 10:05-0400 Systolic blood pressure 132 mm[Hg] Agnieszka Hemmer PA Work Phone: [facility] 11-25-2024 10:32-0400 Body height 167.6 cm Laura Shea MD Work Phone: [facility] 11-25-2024 10:32-0400 Body mass index (BMI) [Ratio] 15.82 kg/m2 Laura Shea MD Work Phone: [facility] 11-25-2024 10:32-0400 Body weight 44.45 kg Laura Shea MD Work Phone: [facility] 11-25-2024 10:32-0400 Diastolic blood pressure 70 mm[Hg] Laura Shea MD Work Phone: [facility] 11-25-2024 10:32-0400 Heart rate 66 /min Laura Shea MD Work Phone: [facility] 11-25-2024 10:32-0400 SaO2% (BldA) [Mass fraction] 98 % Laura Shea MD Work Phone: [facility] 11-25-2024 10:32-0400 Systolic blood pressure 110 mm[Hg] Laura Shea MD Work Phone: [facility] 08-04-2024 13:07-0400 Body height 167.6 cm Laura Shea MD Work Phone: [facility] 08-04-2024 13:07-0400 Body mass index (BMI) [Ratio] 15.66 kg/m2 Laura Shea MD Work Phone: [facility] 08-04-2024 13:07-0400 Body weight 44 kg Laura Shea MD Work Phone: [facility] 08-04-2024 13:07-0400 Diastolic blood pressure 68 mm[Hg] Laura Shea MD Work Phone: [facility] 08-04-2024 13:07-0400 Heart rate 93 /min Laura Shea MD Work Phone: [facility] 08-04-2024 13:07-0400 SaO2% (BldA) [Mass fraction] 99 % Laura Shea MD Work Phone: [facility] 08-04-2024 13:07-0400 Systolic blood pressure 112 mm[Hg] Laura Shea MD Work Phone: [facility] 02-05-2024 13:39-0500 Body height 167.6 cm Laura Shea MD Work Phone: [facility] 02-05-2024 13:39-0500 Body mass index (BMI) [Ratio] 16.62 kg/m2 Laura Shea MD Work Phone: [facility] 02-05-2024 13:39-0500 Body weight 46.72 kg Laura Shea MD Work Phone: [facility] 02-05-2024 13:39-0500 Diastolic blood pressure 78 mm[Hg] Laura Shea MD Work Phone: [facility] 02-05-2024 13:39-0500 Systolic blood pressure 104 mm[Hg] Laura Shea MD Work Phone: [facility] Healthcare Encounters Encounter Date Encounter Type Care Provider Facility Start: 01-08-2025 ambulatory Tran M. Lue Facility[facility] Start: 01-05-2025 End: 01-05-2025 ambulatory Tran M. Lue Facility:[facility] Start: 12-22-2024 End: 12-22-2024 ambulatory Tran M. Lue Facility:[facility] Start: 12-18-2024 End: 12-18-2024 Office outpatient new 45 minutes Lizzette Goldberg DO Work Phone: [facility] Comment on above: Inguinal hernia of l eft side without obstruction or gangrene Start: 12-18-2024 End: 12-18-2024 ambulatory LIZZETTE Dumont ASHLYN Not Available Start: 12-11-2024 End: 12-11-2024 ambulatory Tran Chew Facility:[facility] Start: 12-11-2024 End: 12-11-2024 Patient encounter procedure Tran Chew [facility] Start: 12-09-2024 End: 12-09-2024 Bamboo flowsheet Laura Shea MD Work Phone: [facility] Start: 12-09-2024 End: 12-09-2024 Bamboo flowsmihaela Shea MD Work Phone: [facility] Start: 12-09-2024 End: 12-09-2024 Office outpatient visit 25 minutes Laura Shea MD Work Phone: [facility] Comment on above: Elevated PSA (Primar y Dx); Type 2 diabetes mellitus with stage 3a chronic kidney disease, with long-term current use of insulin (HCC); Type 2 diabetes mellitus without complication, without long-term current use of insulin (HCC); Inguinal hernia of left side without obstruction or gangrene Start: 12-09-2024 End: 12-09-2024 ambulatory LAURA SHEA Not Available Start: 12-02-2024 End: 12-02-2024 Bamboo flowsheet Agnieszka MORALES Work Phone: [facility] Start: 12-02-2024 End: 12-02-2024 Bamboo flowsheet Agnieszka MORALES Work Phone: [facility] Start: 12-02-2024 End: 12-02-2024 Office outpatient visit 25 minutes Agnieszka MORALES Work Phone: [facility] Comment on above: Fall, subsequent enc ounter (Primary Dx); Chronic kidney disease, stage 3a ([facility]); Nocturia; Primary insomnia; Elevated PSA; Hyperkalemia; Smoker Start: 12-02-2024 End: 12-02-2024 ambulatory AGNIESZKA ESCOBAR Not Available Start: 11-25-2024 End: 11-25-2024 Office outpatient visit 25 minutes Laura Shea MD Work Phone: [facility] Comment on above: Inguinal hernia of l eft side without obstruction or gangrene (Primary Dx); Primary insomnia; Elevated PSA Start: 11-25-2024 End: 11-25-2024 ambulatory LAURA SHEA Not Available Start: 08-04-2024 End: 08-04-2024 Bamboo flowsheet Laura Shea MD Work Phone: [facility] Start: 08-04-2024 End: 08-04-2024 Bamboo flowsheet Laura Shea MD Work Phone: [facility] Start: 08-04-2024 End: 08-04-2024 Assay of hemosiderin, quant Laura Shea MD Work Phone: [facility] Start: 08-04-2024 End: 08-04-2024 Patient encounter procedure Laura Shea MD Work Phone: [facility] Comment on above: Routine general medi bo examination at health care facility (Primary Dx); Type 2 diabetes mellitus without complication, unspecified whether tank terminal gauger insulin use; Type 2 diabetes mellitus with stage 3a chronic kidney disease, with long-term current use of insulin (HCC) ([facility]); Chronic obstructive pulmonary disease, unspecified; Unintentional weight loss of 10% body weight within 6 months; Elevated PSA; Bilateral hearing loss, unspecified hearing loss type Start: 08-04-2024 End: 08-04-2024 ambulatory LAURA SHEA Not Available Start: 02-05-2024 End: 02-05-2024 Office outpatient visit 25 minutes Laura Shea MD Work Phone: [facility] [...] for vaccination Start: 02-05-2024 End: 02-05-2024 ambulatory LAURA SHEA Not Available Start: 06-14-2023 End: 12-02-2024 Assay of hemosiderin, quant Agnieszka MORALES Work Phone: [facility] Start: 06-14-2023 Patient encounter procedure Laura Shea MD Work Phone: [facility] Start: 04-29-2023 Chart abstracting Laura Shea MD Work Phone: [facility] Start: 03-24-2022 End: 03-24-[address] LAURA SHEA Facility:[facility] Start: 05-19-2021 End: 05-19-[address] LAURA SHEA Facility:[facility] Start: 05-03-2021 End: 05-03-[address] LAURA SHEA Facility:[facility] Start: 10-15-2017 End: 10-15-2017 Patient encounter ROSA MARIA DIAZ [facility] Procedures Date Procedure Procedure Detail Performing Clinician Start: 12-09-2024 Hemoglobin glycosylated a1c Laura Shea MD Work Phone: Start: 02-05-2024 Hemoglobin glycosylated a1c Laura Shea MD Work Phone: Start: 10-15-2017 DISCHARGE PATIENT ROSA MARIA DIAZ Start: 10-15-2017 DIET NPO, NOW ROSA MARIA JIMENEZ Start: 10-15-2017 FULL CODE ROSA MARIA Neville Start: 10-15-2017 INITIATE OXYGEN THER APY PROTOCOL ROSA MARIA DIAZ Start: 10-15-2017 NURSING COMMUNICATION B DEBO DIAZ Start: 10-15-2017 VERIFY INFORMED CONSENT ROSA MARIA DIAZ Start: 02-12-2014 Colonoscopy Laura Shea MD Work Phone: Colonoscopy Tran Chew Repair of ectropion [place] Plan of Treatment Date Care Activity Detail Author Start: 08-04-2025 Medicare Annual Wellness (AWV) Medicare Annual Wellness (AWV) [facility] Start: 07-25-2025 Urine screening for protein Diabetes: Urine Protein Screening [facility] Start: 03-10-2025 Hemoglobin A1c measurement Diabetes: Hemoglobin A1C [facility] Start: 03-10-2025 End: 03-10-2025 Patient encounter procedure 03/10/2025 10:30 AM EST [facility] [address] [facility] [address] [place] [phone] Laura Shea MD [address] [facility] [address] [place] [address] [facility] Start: 01-29-2025 End: 01-29-2025 Patient encounter procedure 01/29/2025 2:15 PM EST Office Visit [facility] [address] [facility] [address] [place] [phone] Lizzette Goldberg, DO [address] [address] [facility] Surgical [facility] Start: 12-18-2024 End: 12-18-2024 Patient encounter procedure 12/18/2024 2:30 PM EDT Consult [facility] [address] [facility] [address] [place] [phone] Lizzette Goldberg, DO [address] [facility] [address] [place], [place] [id number] [facility] Surgical [facility] Start: 12-09-2024 End: 12-09-2024 Patient encounter procedure [facility] [place] [facility] Comment on above: Arrived Start: 12-04-2024 End: 12-02-2025 Basic metabolic 1998 panel - Serum or Plasma Basic metabolic panel Lab Routine Chronic kidney disease, stage 3a ([facility]) Hyperkalemia Expected: 12/04/2024 (Approximate), Expires: 12/02/2025 [facility] Work Phone: Comment on above: Expected: 12/04/2024 (Approximate), Expires: 12/02/2025 Start: 12-02-2024 End: 12-02-2024 Patient encounter procedure 12/02/2024 10:00 AM EDT Office Visit [facility] [place] [facility] [address] [facility] [address] [place] [phone] Agnieszka Escobar PA [address] [place] [address] [place] [address] Arrived [facility] [place] [facility] Comment on above: Arrived Start: 11-25-2024 End: 11-25-2025 PSA, total and free PSA, total and free Lab Routine Elevated PSA Expected: 11/25/2024 (Approximate), Expires: 11/25/2025 [facility] Work Phone: Comment on above: Expected: 11/25/2024 (Approximate), Expires: 11/25/2025 Start: 11-24-2024 Influenza vaccination Influenza Vacc ine (#1) [facility] Start: 10-25-2024 Hemoglobin A1c measurement Diabetes: Hemoglobin A1C [facility] Start: 08-04-2024 End: 08-04-2024 Patient encounter procedure [facility] Comment on above: Arrived Start: 07-08-2024 Urine screening for protein Diabetes: Urine Protein Screening [facility] Start: 06-13-2024 Medicare Annual Wellness (AWV) Medicare Annual Wellness (AWV) [facility] Start: 05-07-2024 Hemoglobin A1c measurement Diabetes: Hemoglobin A1C [facility] Start: 02-13-2024 Screening for malign ant neoplasm of colon [facility] Start: 02-05-2024 End: 02-04-2025 Noninvasive colorectal cancer DNA and occult blood screening [Presence] in Stool Cologuard colon cancer screening Lab Routine Screening for colon cancer Expected: 02/05/2024 (Approximate), Expires: 02/04/2025 [facility] Work Phone: Comment on above: Expected: 02/05/2024 (Approximate), Expires: 02/04/2025 Start: 05-22-2023 End: 05-22-2023 Patient encounter procedure 05/22/2023 1:00 PM EST Office Visit [facility] [address] [place] [address] [place] [phone] Laura Shea MD [address] [place] [address] [facility] Start: 04-30-2023 End: 04-30-2023 Patient encounter procedure 04/30/2023 11:15 AM EST Office Visit [facility] [address] [place] [address] [place] [phone] Laura Shea MD [address] [place] [address] [facility] Start: 02-20-2023 Hemoglobin A1c measurement Diabetes: Hemoglobin A1C [facility] Start: 09-17-2020 Glaucoma screening Diabetes: R etinopathy Screening [facility] Start: 1950 Medicare Annual Wellness (AWV) Medicare Annual Wellness (AWV) [facility] Start: 1950 Screening for malign ant neoplasm of colon [facility] Immunizations Immunization Date Immunization Notes Care Provider Fa cili 02-05-2024 Influenza, High-dose Seasonal, Quadrivalent, Preservative Free Laura Shea MD Work Phone: [facility] 02-05-2024 influenza virus vacc ine, unspecified formulation Laura Shea MD Work Phone: [facility] 02-06-2023 Influenza, High-dose Seasonal, Quadrivalent, Preservative Free Laura Shea MD Work Phone: [facility] 02-02-2022 influenza, high dose seasonal, preservative-free Laura Shea MD Work Phone: [facility] 03-09-2021 Influenza, High-dose Seasonal, Quadrivalent, Preservative Free Laura Shea MD Work Phone: [facility] 01-07-2020 Seasonal, quadrivale nt, recombinant, injectable influenza vaccine, preservative free Laura Shea MD Work Phone: [facility] 02-06-2019 Influenza, High-dose Seasonal, Quadrivalent, Preservative Free Laura Shea MD Work Phone: [facility] 02-01-2018 Influenza, High-dose Seasonal, Quadrivalent, Preservative Free Laura Shea MD Work Phone: [facility] 01-11-2017 pneumococcal polysaccharide vaccine, 23 valent Laura Shea MD Work Phone: [facility] 12-28-2016 Influenza, High-dose Seasonal, Quadrivalent, Preservative Free Laura Shea MD Work Phone: [facility] 08-02-2015 pneumococcal conjuga te vaccine, 13 valent Laura Shea MD Work Phone: [facility] 07-30-2015 pneumococcal conjuga te vaccine, 13 valent Laura Shea MD Work Phone: [facility] 07-30-2015 zoster vaccine, live Laura kinney MD Work Phone: [facility] 12-11-2012 tetanus and diphther ia toxoids, adsorbed, preservative free, for adult use (2 Lf of tetanus toxoid and 2 Lf of diphtheria toxoid) Laura Shea MD Work Phone: [facility] 12-29-2011 influenza, seasonal, injectable, preservative free Laura Shea MD Work Phone: [facility] Payers Date Payer Category Payer Medicare (Managed Care) [employer] [id number] 2024 Medicare [id number] 2017 Medicare [id number] 2014 Unknown [id number] 1959 Medicare [id number] 1948 Unknown [id number]. 593 1948 Unknown [id number]. 593 1948 Unknown [id number]. 593 1948 Unknown [id number] [id number]. 1259 1948 Unknown [id number] [id number]. 1259 1948 Unknown [id number] [id number]. 1259 1948 Unknown [id number] [id number]. 1259 1948 Unknown [id number] [id number]. 1259 1948 Unknown [id number] [id number]. 1259 1948 Unknown [id number] [id number]. 727 1948 Unknown [id number] [id number]. 727 1948 Unknown [id number] [id number]. 727 1948 Unknown [id number] [id number]. 727 Social History Date Type Detail Facility Start: 01-04-2023 Tobacco smoking stat [facility] Smokes tobacco daily [facility] History of tobacco use Cigarette Smoker [facility] Start: 01-04-2023 End: 01-25-2023 Cigarettes smoked current (pack per day) - Reported 0.5 [facility] Start: 01-04-2023 Tobacco use and exposure Smoke less tobacco non-user [facility] Start: 04-29-2023 End: 12-18-2024 Alcohol intake Ex-drinker (finding) [facility] Start: 01-25-2023 End: 12-09-2024 Humiliation, Afraid, Rape, and Kick questionnaire [HARK] [...] At Not on file [facility] Start: 12-11-2024 Tobacco smoking status Heavy t obacco smoker (finding) [facility] Sexual Orientation [facility] Sex Male (finding) [facility] Medical Equipment Procedure Code Equipment Code Equipment Origin al Text Equipment Identifier Dates USE DIRECTED with idalmis walton [id number] Start: 04-23-2023 Functional Status Date Assessment Result Facility 12-09-2024 Patient Health Quest ionnaire 2 item (PHQ-2) [Reported] [facility] 12-02-2024 Patient Health Quest ionnaire 2 item (PHQ-2) [Reported] [facility] 11-25-2024 Patient Health Quest ionnaire 2 item (PHQ-2) [Reported] [facility] 08-04-2024 Patient Health Quest ionnaire 2 item (PHQ-2) [Reported] [facility] Clinical Notes 02-05-2024 to 01-05-2025 Lizzette Goldberg, - 12/18/2024 2:30 PM Atul Shea MD - 12/09/2024 11:22 AM Atul Shea MD - 12/09/2024 11:22 AM Atul Shea MD - 12/09/2024 11:22 AM EDT Note Date & Type Note Facility 01-05-2025 Note Patient Education Oncology Prostate Cancer The prostate is a small gland that produces fluid that makes up semen (seminal fluid). It is located below the bladder in men, in front of the rectum. Prostate cancer is the abnormal growth of cells in the prostate gland. What are the causes? The exact cause of this condition is not known. What increases the risk? You are more likely to develop this condition if: ??? You are 65 years of age or older. ??? You have a family history of prostate cancer. ??? You have a family history of breast and ovarian cancer. ??? You have genes that are passed from parent to child (inherited), such as BRCA1 and BRCA2. ??? You have Ram syndrome. men and men of descent are diagnosed with prostate cancer at higher rates than other men. The reasons for this are not well understood and are likely due to a combination of genetic and environmental factors. What are the signs or symptoms? Symptoms of this condition include: ??? Problems with urination. This may include: ? A weak or interrupted flow of urine. ? Trouble starting or stopping urination. ? Trouble emptying the bladder all the way. ? The need to urinate more often, especially at night. ??? Blood in urine or semen. ??? Persistent pain or discomfort in the lower back, lower abdomen, or hips. ??? Trouble getting an erection. ??? Weakness or numbness in the legs or feet. How is this diagnosed? This condition can be diagnosed with: ??? A digital rectal exam. For this exam, a health care provider inserts a gloved finger into the rectum to feel the prostate gland. ??? A blood test called a prostate-specific antigen (PSA) test. ??? A procedure in which a sample of tissue is taken from the prostate and checked under a microscope (prostate biopsy). ??? An imaging test called transrectal ultrasonography. Once the condition is diagnosed, tests will be done to determine how far the cancer has spread. This is called staging the cancer. Staging may involve imaging tests, such as a bone scan, CT scan, PET scan, or MRI. Stages of prostate cancer The stages of prostate cancer are as follows: ??? Stage 1 (I). At this stage, the cancer is found in the prostate only. The cancer is not visible on imaging tests, and it is usually found by accident, such as during prostate surgery. ??? Stage 2 (II). At this stage, the cancer is more advanced than it is in stage 1, but the cancer has not spread outside the prostate. ??? Stage 3 (III). At this stage, the cancer has spread beyond the outer layer of the prostate to nearby tissues. The cancer may be found in the seminal vesicles, which are near the bladder and the prostate. ??? Stage 4 (IV). At this stage, the cancer has spread to other parts of the body, such as the lymph nodes, bones, bladder, rectum, liver, or lungs. Prostate cancer grading Prostate cancer is also graded according to how the cancer cells look under a microscope. This is called the Redway score and the total score can range from 6?10, indicating how likely it is that the cancer will spread (metastasize) to other parts of the body. The higher the score, the greater the likelihood that the cancer will spread. ??? Alethea 6 or lower: This indicates that the cancer cells look similar to normal prostate cells (well differentiated). ??? Redway 7: This indicates that the cancer cells look somewhat similar to normal prostate cells (moderately differentiated). ??? Alethea 8, 9, or 10: This indicates that the cancer cells look very different than normal prostate cells (poorly differentiated). How is this treated? Treatment for this condition depends on several factors, including the stage of the cancer, your age, personal preferences, and your overall health. Talk with your health care provider about treatment options that are recommended for you. Common treatments include: ??? Observation for early stage prostate cancer (active surveillance). This involves having exams, blood tests, and in some cases, more biopsies. For some men, this is the only treatment needed. ??? Surgery. Types of surgeries include: ? Open surgery (radical prostatectomy). In this surgery, a larger incision is made to remove the prostate. ? A laparoscopic radical prostatectomy. This is a surgery to remove the prostate and lymph nodes through several small incisions. It is often referred to as a minimally invasive surgery. ? A robotic radical prostatectomy. This is laparoscopic surgery to remove the prostate and lymph nodes with the help of robotic arms that are controlled by the surgeon. ? Cryoablation. This is surgery to freeze and destroy cancer cells. ??? Radiation treatment. Types of radiation treatment include: ? External beam radiation. This type aims beams of radiation from outside the body at the prostate to destroy cancerous cells. ? Brachytherapy. This type uses radioactive needles, seeds, wires, o (more content not included)... [facility] 12-22-2024 Note Patient Education Transrectal Ultrasound of the Prostate with US guided biopsy ??? Even though there are no visible incisions, multiple prostate biopsies have been taken through the rectum and you need to follow some instructions to minimize the risks of bleeding. ??? You may see some blood in your urine and stool for up to 1 week (and blood in the semen for several months) ??? Diet -You may resume your normal diet, but you may want to avoid alcohol, carbonated drinks, caffeine, and spicy foods, which may increase the irritation from the surgery. -Drink plenty of water to keep the urine clear. ??? Activity -You should limit any physical activity for about 48 hours -No heavy lifting or straining (10 pound limit) -No driving a car and limit long car rides for 2 days -No strenuous exercise -No sexual intercourse until this is discussed with your doctor ??? Bowels -Try to keep your bowel movements soft to minimize straining to have a bowel movement. -You may use a stool softener or over the counter laxative if needed -Difficult bowel movement may lead to straining and bleeding from the prostate ??? Medications -You may resume your home medications unless instructed otherwise -Hold aspirin, ibuprofen, Coumadin (warfarin) and other blood thinners for about two days or until there is no active bleeding unless otherwise instructed -Finish the antibiotic which you have already started ??? Things to watch for which would require an Emergency Room visit or call 911: (this is not a complete list) -Persistent or heavy bleeding or blood clots from the rectum or in the urine -Inability to urinate -Fever over 101.5 degrees Fahrenheit, with or without chills -Severe drug reactions with itching, hives or rash -Tenderness or swelling of the calves, chest pain, or shortness of breath ??? Please call the office to arrange for your post-operative appointment in 1-2 weeks [phone] or [phone] [facility] 12-18-2024 History of Presen t illness Narrative Images from the original note were not included. Freida Dougherty 1950 Freida Dougherty is a 74 y.o. male presents with chief complaint of Inguinal hernia consult (Lt groin discomfort, pain comes and goes) HPI: HPI Freida states he has a lump in the left groin and mentioned it to his PCP. He was referred for evaluation. He says occasionally when he coughs he knows it is their. SUBJECTIVE: MEDICATIONS: ALLERGIES Current Outpatient Medications Medication Instructions albuterol 2.5 mg, Nebulization, 3 times daily PRN aspirin 81 mg, Once Qeeffhq-Kwwftbavmmg-Cwnaqzckgw (Breztri Aerosphere) 160-9-4.8 MCG/ACT aerosol 2 puffs, Every 12 hours carvedilol (COREG) 6.25 mg, Oral, 2 times daily Drug [place] Unifine Pentips 31G X 6 MM misc USE DIRECTED with levemir pen fluticasone (Flonase) 50 MCG/ACT nasal spray 2 sprays, Each Nostril, Daily hydrOXYzine HCl (ATARAX) 25 mg, 4 times daily Insulin Lispro (HumaLOG) 100 UNIT/ML solution Inject under the skin Lantus SoloStar 10 Units, Subcutaneous, Nightly lisinopril 20 mg, Oral, Daily metFORMIN (GLUCOPHAGE) 1,000 mg, Oral, 2 times daily with meals ondansetron ODT (Zofran-ODT) 4 MG disintegrating tablet DISSOLVE 1 tablet on top OF tongue EVERY 6 HOURS NEEDED FOR NAUSEA AND VOMITING pravastatin (PRAVACHOL) 40 mg, Oral, Daily zolpidem (AMBIEN) 10 mg Allergies Allergen Reactions Ambien [Zolpidem] Other Fall, overly sedated PAST MEDICAL HISTORY: SOCIAL HISTORY SURGICAL HISTORY: Past Medical History: Diagnosis Date Allergic Allergies Bronchitis Chronic airway obstruction ([facility]) Chronic airway obstruction, not elsewhere classified COPD (chronic obstructive pulmonary disease) ([facility]) Cough COVID 03/26/2021 Positive Non immunized Diabetes mellitus ([facility]) Dyspnea Esophageal reflux Essential hypertension, benign [...] and other examination of lung field Pancreatitis ([facility]) 1994 Type 2 diabetes mellitus without complication ([facility]) 1999 Social History Tobacco Use Smoking status: Every Day Current packs/day: 0.50 Types: Cigarettes Smokeless tobacco: Never Tobacco comments: 6-10 cigarettes/day Substance Use Topics Alcohol use: Not Currently Comment: caffeine: chocolate Drug use: Never Past Surgical History: Procedure Laterality Date ABDOMINAL SURGERY Procedure:Phlegmon and Abdominal Surgery;Disease:Pancreatitis COLONOSCOPY 02/13/2014 Dr. Bautista Redundant colon, spastic colon CT ANGIOGRAM CHEST 02/18/2019 CT ANGIOGRAM CHEST [facility] DATA LEGACY ECTROPION REPAIR 10/15/2017 Left Lower Ectropion-Left Eye Dr. Diaz EYE EXAM 2000 :Diabetes mellitus, type 2 without comp. [place] [facility]NAG[facility] 2011 Procedure:CXR -[id number]-BCS-TESSALMAIKEL HAJI;Disease:[id number] PD FAMILY HISTORY Family History Problem Relation Name Age of Onset Breast cancer Neg Hx Colon cancer Neg Hx Ovarian cancer Neg Hx Pancreatic cancer Neg Hx REVIEW OF SYMPTOMS: Review of Systems Constitutional: Negative for activity change. HENT: Positive for hearing loss. Negative for voice change. Respiratory: Positive for shortness of breath. Cardiovascular: Negative for chest pain. Gastrointestinal: Negative for abdominal distention, diarrhea, nausea and vomiting. Neurological: Negative for dizziness, seizures and headaches. Psychiatric/Behavioral: Negative. All other systems reviewed and are negative. OBJECTIVE: Visit Vitals Ht 5' 7 Wt 97 lb BMI 15.19 kg/m Smoking Status Every Day BSA 1.44 m Physical Exam Vitals reviewed. HENT: Head: Normocephalic. Eyes: Pupils: Pupils are equal, round, and reactive to light. Cardiovascular: Rate and Rhythm: Normal rate and regular rhythm. Pulmonary: Effort: Pulmonary effort is normal. Abdominal: General: Bowel sounds are normal. Palpations: Abdomen is soft. Comments: Bilateral normal descended testes. The right inguinal canal was examined and no hernia was identified. The left inguinal canal was examined and he has a non tender reducible hernia. Musculoskeletal: General: Normal range of motion. Skin: General: Skin is warm. Neurological: General: No focal deficit present. Mental Status: He is alert. ASSESSMENT AND PLAN: Assessment/Plan Diagnoses and all orders for this visit: Inguinal hernia of left side without obstruction or gangrene - Ambulatory referral to General Surgery I discussed with the patient an open left inguinal hernia repair with the use of a mesh for repair. I reviewed the risks, and benefits of the procedure including but not exclusive of the possibility of nerve injury, bleeding, ecchymosis of the penis and scrotum and infection. We discussed the low incidence of chronic pain at the surgical site from the mesh. The patient has agreed to the surgery and scheduling has been completed. documented in this encounter [facility] 12-11-2024 [facility] Discharg e instructions Patient Education 12/11/2024 09:19:38 Transrectal Ultrasound-Guided Prostate Biopsy Transrectal Ultrasound-Guided Prostate Biopsy A transrectal ultrasound-guided prostate biopsy is a procedure to remove samples of prostate tissue for testing. The prostate is a walnut-sized gland that is located below the bladder and in front of the rectum. During this procedure, a small device (probe) is lubricated and put inside the rectum. The probe sends out sound waves that make a picture of the prostate and surrounding tissues (transrectal ultrasound). The images are used to help guide the process of removing the samples. The samples are taken to a lab to be checked for prostate cancer. This procedure is usually done to evaluate the prostate gland of men who have raised (elevated) levels of prostate-specific antigen (PSA), which can be a sign of prostate cancer or prostate enlargement related to aging (benign prostatic hyperplasia, or BPH). Tell a health care provider about: Any allergies you have. All medicines you are taking, including vitamins, herbs, eye drops, creams, and lyxy-wpk-puumksi medicines. Any problems you or family members have had with anesthetic medicines. Any bleeding problems you have. Any surgeries you have had. Any medical conditions you have. Any prostate infections you have had. What are the risks? Generally, this is a safe procedure. However, problems may occur, including: Prostate infection. Bleeding from the rectum. Blood in the urine. Allergic reactions to medicines. Damage to surrounding structures such as blood vessels, organs, or muscles. Difficulty passing urine. Nerve damage. This is usually temporary. What happens before the procedure? Medicines Ask your health care provider about: Changing or stopping your regular medicines. This is especially important if you are taking diabetes medicines or blood thinners. Taking medicines such as aspirin and ibuprofen. These medicines can thin your blood. Do not take these medicines unless your health care provider tells you to take them. Taking zcby-vls-lxcuxlr medicines, vitamins, herbs, and supplements. General instructions Follow instructions from your health care provider about eating and drinking. In most instances, you will not need to stop eating and drinking completely before the procedure. You will be given an enema. During an enema, a liquid is injected into your rectum to clear out waste. You may have a blood or urine sample taken. Ask your health care provider what steps will be taken to help prevent infection. These steps may include: ?Washing skin with a germ-killing soap. ?Taking antibiotic medicine. If you will be going home right after the procedure, plan to have a responsible adult: ?Take you home from the hospital or clinic. You will not be allowed to drive. ?Care for you for the time you are told. What happens during the procedure? An IV will be inserted into one of your veins. You will be given one or both of the following: ?A medicine to help you relax (sedative). ?A medicine to numb the area (local anesthetic). You will be placed on your left side, and your knees will be bent toward your chest. A probe with lubricated gel will be placed into your rectum, and images will be taken of your prostate and surrounding structures. Numbing medicine will be injected into your prostate. A biopsy needle will be inserted through your rectum or perineum and guided to your prostate using the ultrasound images. Prostate tissue samples will be removed, and the needle and probe will then be removed. The biopsy samples will be sent to a lab to be tested. The procedure may vary among health care providers and hospitals. What happens after the procedure? Your blood pressure, heart rate, breathing rate, and blood oxygen level will be monitored until you leave the hospital or clinic. You may have some discomfort in the rectal area. You will be given pain medicine as needed. If you were given a sedative during the procedure, it can affect you for several hours. Do not drive or operate machinery until your health care provider says that it is safe. It is up to you to get the results of your procedure. Ask your health care provider, or the department that is doing the procedure, when your results will be ready. Keep all follow-up visits. This is important. Summary A transrectal ultrasound-guided biopsy removes samples of tissue from your prostate using ultrasound-guided sound waves to help guide the process. This procedure is usually done to evaluate the prostate gland of men who have raised (elevated) levels of prostate-specific antigen (PSA), which can be a sign of prostate cancer or prostate enlargement related to aging. After your procedure, you may feel some discomfort in the rectal area. Plan to have a responsible adult take you home from the hospital or clinic, and follow up with your health care provider for your results. This information is not intended to replace advice given to you by your health care provider. Make sure you discuss any questions you have with your health care provider. Document Revised: 09/05/2021 Document Reviewed: 09/05/2021 [employer] Patient Education 2023 [employer]. 12/11/2024 08:58:35 Steps to Quit Smoking Steps to Quit Smoking Smoking tobacco is the leading cause of preventable . It can affect almost every organ in the body. Smoking puts you and those around you at risk for developing many serious chronic diseases. Quitting smoking can be very challenging. Do not get discouraged if you are not successful the first time. Some people need to make many attempts to quit before they achieve long-term success. Do your best to stick to your quit plan, and talk with your health care provider if you have any questions or concerns. How do I get ready to quit? When you decide to quit smoking, create a plan to help you succeed. Before you quit: Pick a date to quit. Set a date within the next 2 weeks to give you time to prepare. Write down the reasons why you are quitting. Keep this list in places where you will see it often. Tell your family, friends, and co-workers that you are quitting. Support from people you are close to can make quitting easier. Talk with your health care provider about your options for quitting smoking. Find out what treatment options are covered by your health insurance. Identify people, places, things, and activities that make you want to smoke (triggers). Avoid them. What first steps can I take to quit smoking? Throw away all cigarettes at home, at work, and in your car. Throw away smoking accessories, such as ashtrays and lighters. Clean your car. Make sure to empty the ashtray. Clean your home, including curtains and carpets. What strategies can I use to quit smoking? Talk with your health care provider about combining strategies, such as taking medicines while you are also receiving in-person counseling. Using these two strategies together makes you more likely to succeed in quitting than if you used either strategy on its own. If you are or , talk with your health care provider about finding counseling or other support strategies to quit smoking. Do not take medicine to help you quit smoking unless your health care provider tells you to. Quit right away Quit smoking completely, instead of gradually reducing how much you smoke over a period of time. Stopping smoking right away may be more successful than gradually quitting. Attend in-person counseling to help you build problem-solving skills. You are more likely to succeed in quitting if you attend counseling sessions regularly. Even short sessions of 10 minutes can be effective. Take medicine You may take medicines to help you quit smoking. Some medicines require a prescription. You can also purchase rgvo-unm-hukdjkg medicines. Medicines may have nicotine in them to replace the nicotine in cigarettes. Medicines may: Help to stop cravings. Help to relieve withdrawal symptoms. Your health care provider may recommend: Nicotine patches, gum, or lozenges. Nicotine inhalers or sprays. Non-nicotine medicine that you take by mouth. Find resources Find resources and support systems that can help you quit smoking and remain smoke-free after you quit. These resources are most helpful when you use them often. They include: Online chats with a counselor. Telephone quitlines. Printed self-help materials. Support groups or group counseling. Text messaging programs. Mobile phone apps or applications. Use apps that can help you stick to your quit plan by providing reminders, tips, and encouragement. Examples of free services include Quit Guide from the CDC and smokefree.gov What can I do to make it easier to quit? Reach out to your family and friends for support and encouragement. Call telephone quitlines, such as 0-068-MMWL-NOW, reach out to support groups, or work with a counselor for support. Ask people who smoke to avoid smoking around you. Avoid places that trigger you to smoke, such as bars, parties, or smoke-break areas at work. Spend time with people who do not smoke. Lessen the stress in your life. Stress can be a smoking trigger for some people. To lessen stress, try: ?Exercising regularly. ?Doing deep-breathing exercises. ?Doing yoga. ?Meditating. What benefits will I see if I quit smoking? Over time, you should start to see positive results, such as: Improved sense of smell and taste. Decreased coughing and sore throat. Slower heart rate. Lower blood pressure. Clearer and healthier skin. The ability to breathe more easily. Fewer sick days. Summary Quitting smoking can be very challenging. Do not get discouraged if you are not successful the first time. Some people need to make many attempts to quit before they achieve long-term success. When you decide to quit smoking, create a plan to help you succeed. Quit smoking right away, not slowly over a period of time. Find resources and support systems that can help you quit smoking and remain smoke-free after you quit. This information is not intended to replace advice given to you by your health care provider. Make sure you discuss any questions you have with your health care provider. Document Revised: 03/03/2022 Document Reviewed: 03/03/2022 [employer] Patient Education 2023 [employer]. Follow Up Care 12/03/2024 12:03:39 With:Jeevan CARMONA, EL Garber, URO Address: When: Unknown [facility] 12-11-2024 Note Urology Office/Clini c Note Chief Complaint Referral for elevated PSA HPI Staff 74 yr old referred by Shabbir Lizama MD for Elevated PSA PSA 06/20/23 - 13.96 07/09/23 - 3.2 & 16% 07/25/24 - 21.90 12/04/24 - (free % not calculated) Previously referred in July of this year. Pt never scheduled. PVR 66mL IPSS 19 DAISY 0 Pt. having post void incontinence, occasionally Pt. denies having pain with urination Pt. denies having gross hematuria Pt. denies having abd pain Pt. denies having flank pain History of Present Illness Tests reviewed: reviewed UA and external records: PSAs, primary care notes. I have reviewed the previous health record information and history for this patient from external provider I have reviewed and verified the staff HPI to be accurate for this encounter. Review of Systems PHQ Score Initial Depression Screen Score: 0 SCORE ROS - Provider Constitutional: denies weight loss, denies hot flashes. Eyes: denies eye problems. Gastrointestinal: denies nausea, denies vomiting. Cardiovascular: denies chest pain or angina. Integumentary: no dryness Musculoskeletal: denies musculoskeletal symptoms. ENMT: denies otolaryngeal symptoms. Respiratory: no shortness of breath. Heme/Lymph: denies easy bleeding tendency, denies easy bruising tendency. Psychiatric: no confusion, no anxiety. Genitourinary: See HPI. Physical Exam Vitals & Measurements HR: 106(Peripheral) BP: 120/67 HT: 67 in HT: 170 cm WT: 99.428 lb WT: 45.1 kg BMI: 15.61 General Appearance: alert, no distress, under nourished, thin Head: normocephalic . Eyes: normal orbit and globe. ENMT: normal examination of external ears. Chest: symmetric chest rise, respirations non labored. Prostate: flat vs high riding prostate, difficult to palpate, nodule R apex. Prostate is not enlarged. Psychiatric: cooperative, affect appropriate for age, normal judgement, euthymic mood. Assessment/Plan 74 yo M with T2DM, HTN referred by Dr. Laura Shea for elevated PSA. Pt accompanied by daughter, Marj. Daughter states that pt had ex lap in 1994 due to being an alcoholic, pancreas issues. DAISY 0 - has not been sexually active since the due to EtOH. Not a priority. 1. Elevated PSA (R97.20: Elevated prostate specific antigen [PSA]) PSA 06/20/23 - 13.96 07/09/23 - 3.2 & 16% 07/25/24 - 21.90 12/04/24 - (free % not calculated) No known family history of prostate CA. Father at age 76, mother at 59 yo. Denies metal objects in body or claustrophobia. UA 09/17/24 - 0-2 WBC, trace bacteria, small mucus. No urine culture was sent. Currently on Cipro through Dr. Shea, however it is unclear why pt was started on ATB Pt states he was told his numbers were elevated and they were going to see if the ATB would decrease his PSA. He is asymptomatic of infection. UA today clear. DWIGHT not suspicious for prostatitis Today I reviewed the patients past history including voiding symptoms, PSA history and any prior prostate biopsy information that is available. We discussed the controversies that exist in the field of PSA based cancer testing and the absence of exact correlation of PSA data to the presence or absence of prostate cancer on biopsy. I discussed the production of PSA by the prostate gland as well as common causes of elevated serum PSA including infection, inflammation, BPH and prostate cancer. He understood that his PSA level may also be falsely elevated due to any manipulation/instrumentation around the time of a PSA draw. I discussed the absolute value of PSA as well as PSA velocity and age specific PSA and the implications with the patient. The PCPT (prostate cancer prevention trial) risk calculator estimates his risk of prostate cancer to be 63% including a 40% risk of high grade disease and a 23% risk of low grade disease. I gave the patient management options moving forward and explained the risks/benefits of each one: -Continue monitoring PSA with repeat in 6-12 months -Obtain prostate MRI to evaluate for suspicious lesions. He understands MRIs may miss malignancy in 12-16% of patients. -Proceed with biopsy Pt states if prostate cancer was found he would want it treated. Pt does voice that he is concerned about having prostate cancer. Discussed MRI vs proceeding with standard TRUS/bx given PSA elevation and to expedite workup. Pt wishes to proceed with biopsy at this point. MRI can always be done in the future if bx neg -Will schedule TRUS/bx. Prophy ATB sent. The procedural risks, benefits, details, and treatment alternatives have been discussed with the patient. These include minimal to severe bleeding, infection, blood in the semen, inability to urinate, and severe infection requiring hospitalization and IV antibiotics, among others. Full informed consent has been obtained. Will order Local anesthesia. -Consider MRI after biopsy if neg 2. BPH with urinary obstruction (N40.1: Benign prostatic hyperplasia (more content not included)... [facility] Comment on above: Result Comment: Elec tronically Signed By: Tran Chew MD\.br\Date and Time Signed: 12/11/24 09:24 EDT\.br\Electronically Co-Signed By: Josi Murphy.floyd\Date and Time Co-Signed: 12/11/24 09:19 EDT 12-11-2024 Note Patient Education Oncology Transrectal Ultrasound-Guided Prostate Biopsy A transrectal ultrasound-guided prostate biopsy is a procedure to remove samples of prostate tissue for testing. The prostate is a walnut-sized gland that is located below the bladder and in front of the rectum. During this procedure, a small device (probe) is lubricated and put inside the rectum. The probe sends out sound waves that make a picture of the prostate and surrounding tissues (transrectal ultrasound). The images are used to help guide the process of removing the samples. The samples are taken to a lab to be checked for prostate cancer. This procedure is usually done to evaluate the prostate gland of men who have raised (elevated) levels of prostate-specific antigen (PSA), which can be a sign of prostate cancer or prostate enlargement related to aging (benign prostatic hyperplasia, or BPH). Tell a health care provider about: ??? Any allergies you have. ??? All medicines you are taking, including vitamins, herbs, eye drops, creams, and miwt-hdh-ryewgbf medicines. ??? Any problems you or family members have had with anesthetic medicines. ??? Any bleeding problems you have. ??? Any surgeries you have had. ??? Any medical conditions you have. ??? Any prostate infections you have had. What are the risks? Generally, this is a safe procedure. However, problems may occur, including: ??? Prostate infection. ??? Bleeding from the rectum. ??? Blood in the urine. ??? Allergic reactions to medicines. ??? Damage to surrounding structures such as blood vessels, organs, or muscles. ??? Difficulty passing urine. ??? Nerve damage. This is usually temporary. What happens before the procedure? Medicines Ask your health care provider about: ??? Changing or stopping your regular medicines. This is especially important if you are taking diabetes medicines or blood thinners. ??? Taking medicines such as aspirin and ibuprofen. These medicines can thin your blood. Do not take these medicines unless your health care provider tells you to take them. ??? Taking lmog-mxw-zrbokrg medicines, vitamins, herbs, and supplements. General instructions ??? Follow instructions from your health care provider about eating and drinking. In most instances, you will not need to stop eating and drinking completely before the procedure. ??? You will be given an enema. During an enema, a liquid is injected into your rectum to clear out waste. ??? You may have a blood or urine sample taken. ??? Ask your health care provider what steps will be taken to help prevent infection. These steps may include: ? Washing skin with a germ-killing soap. ? Taking antibiotic medicine. ??? If you will be going home right after the procedure, plan to have a responsible adult: ? Take you home from the hospital or clinic. You will not be allowed to drive. ? Care for you for the time you are told. What happens during the procedure? An IV will be inserted into one of your veins. ??? You will be given one or both of the following: ? A medicine to help you relax (sedative). ? A medicine to numb the area (local anesthetic). ??? You will be placed on your left side, and your knees will be bent toward your chest. ??? A probe with lubricated gel will be placed into your rectum, and images will be taken of your prostate and surrounding structures. ??? Numbing medicine will be injected into your prostate. ??? A biopsy needle will be inserted through your rectum or perineum and guided to your prostate using the ultrasound images. ??? Prostate tissue samples will be removed, and the needle and probe will then be removed. ??? The biopsy samples will be sent to a lab to be tested. The procedure may vary among health care providers and hospitals. What happens after the procedure? Your blood pressure, heart rate, breathing rate, and blood oxygen level will be monitored until you leave the hospital or clinic. ??? You may have some discomfort in the rectal area. You will be given pain medicine as needed. ??? If you were given a sedative during the procedure, it can affect you for several hours. Do not drive or operate machinery until your health care provider says that it is safe. ??? It is up to you to get the results of your procedure. Ask your health care provider, or the department that is doing the procedure, when your results will be ready. ??? Keep all follow-up visits. This is important. Summary ??? A transrectal ultrasound-guided biopsy removes samples of tissue from your prostate using ultrasound-guided sound waves to help guide the process. ??? This procedure is usually done to evaluate the prostate gland of men who have raised (elevated) levels of prostate-specific antigen (PSA), which can be a sign of prostate cancer or prostate enlargement related to aging. ??? After your procedure, you may feel some discomfort in the rectal area. ?? (more content not included)... [facility] 12-09-2024 History of Presen t illness Narrative Associated Problem(s): Type 2 diabetes mellitus with stage 3a chronic kidney disease, with long-term current use of insulin (HCC) No Tobacco use Follow ADA 1800 diet [...] such as Ibuprofen, Motrin, Naprosyn. Increase fluids. Associated Problem(s): Type 2 diabetes mellitus without complication (HCC) A1c is NOW 7.6 F/U in 3 months Associated Problem(s): Elevated PSA D/W patient needs appointment with urology for ruling out prostate cancer Associated Problem(s): Inguinal hernia of left side without obstruction or gangrene Sees Dr. Goldberg on 12/18/2024 Images from the original note were not included. HPI Results Additional comments: Elevated PSA-- pt is sched to see urology Last edited by Johana Mclaughlin LPN on 12/09/2024 11:02 AM. Subjective Patient ID: Freida Dougherty is a 74 y.o. male who presents for Diabetes and Results (Elevated PSA-- pt is sched to see urology). Diabetes Mellitus Patient presents for follow up of diabetes. Current symptoms include: none. SPatient denies foot ulcerations, hypoglycemia , nausea, paresthesia of the feet, polydipsia, visual disturbances, and vomiting. Evaluation to date has included: fasting blood sugar, fasting lipid panel, hemoglobin A1C, and microalbuminuria. Home sugars: BGs range between 120 and 135. Current treatment: insulin, metformin. A1C 07/2024 6.4% Diabetes He presents for his follow-up diabetic visit. He has type 2 diabetes mellitus. Pertinent negatives for hypoglycemia include no dizziness. Pertinent negatives for diabetes include no chest pain. Over the past 2 weeks, how often [...] tablet Chew 81 mg 1 (one) time. Jklzoko-Hnqawmersmb-Ntmohdfvsm (Breztri Aerosphere) 160-9-4.8 MCG/ACT aerosol Inhale 2 puffs every 12 (twelve) hours. carvedilol (Coreg) 6.25 MG tablet Take 1 tablet (6.25 mg) by mouth in the morning and 1 tablet (6.25 mg) before bedtime. 200 tablet 3 Drug [facility] Pentips 31G X 6 MM [facility] [place] USE DIRECTED with levemir pen fluticasone (Flonase) 50 MCG/ACT nasal spray Administer 2 sprays into each nostril in the morning. 16 g 3 hydrOXYzine HCl (Atarax) 25 MG tablet Take 25 mg by mouth in the morning and 25 mg at noon and 25 mg in the evening and 25 mg before bedtime. lisinopril 20 MG tablet Take 1 tablet [...] mg) by mouth Daily 100 tablet 3 [DISCONTINUED] insulin glargine (Lantus SoloStar) 100 UNIT/ML pen Inject 8 Units under the skin at bedtime 7.2 mL 3 [DISCONTINUED] insulin lispro protamine-insulin lispro (HumaLOG Mix 75-25) (75-25) 100 UNIT/ML injection Inject 10 Units under the skin in the morning and 10 Units in the evening. Inject with meals. 3 mL 12 [DISCONTINUED] ciprofloxacin (Cipro) 500 MG tablet Take 1 tablet (500 mg) by mouth in the morning and 1 tablet (500 mg) before bedtime. Do all this for 14 days. (Patient not taking: Reported on 12/02/2024) 28 tablet 0 [DISCONTINUED] zolpidem (Ambien) 10 MG tablet Take 1 tablet (10 mg) by mouth as needed at bedtime for sleep (Patient not taking: Reported on 12/02/2024) 30 tablet 0 No current facility-administered medications on file prior to visit. I have reviewed and reconciled the history and medication list with the patient today. Allergies Allergen Reactions Ambien [Zolpidem] Other Fall, overly sedated Social History Tobacco Use Smoking status: Every [...] History of being hospitalized 02/28/2017 COPD Exacerbation [facility] History of CT scan of abdomen [...] 2000 :Diabetes mellitus, type 2 without comp. [place] [facility] [place] Procedure:CXR -LDTMJBDUXQ-Q-WSZ-TESSALON ADITHYA;Disease:[id number]-[id number]-VC PD Visit Vitals BP 122/60 Pulse 86 Ht 5' 6 Wt 100 lb SpO2 96% BMI 16.14 kg/m Smoking Status Every Day BSA 1.45 m Review of Systems Constitutional: Negative for chills and fever. Respiratory: Negative for shortness of breath. Cardiovascular: Negative for chest pain. Gastrointestinal: Negative for constipation, diarrhea, nausea and vomiting. Musculoskeletal: Negative for back pain and gait problem. Neurological: Positive for syncope. Negative for dizziness and facial asymmetry. Had Ambien and had syncopal episode Objective Physical Exam Office Visit on 12/09/2024 Component Date Value Ref Range Status Hemoglobin A1C 12/09/2024 7.6 Final Assessment/Plan Problem List Items Addressed This Visit Type 2 diabetes mellitus without complication (HCC) A1c is NOW 7.6 F/U in 3 months Relevant Medications insulin glargine (Lantus SoloStar) 100 UNIT/ML pen Type 2 diabetes mellitus with stage 3a chronic kidney disease, with long-term current use of insulin (HCC) No Tobacco use Follow ADA 1800 diet [...] of left side without obstruction or gangrene Sees Dr. Goldberg on 12/18/2024 Elevated PSA - Primary D/W patient needs appointment with urology for ruling out prostate cancer Follow up in about 3 months (around 03/10/2025) for Diabetes. documented in this encounter [facility] 12-02-2024 History of Presen t illness Narrative Images from the original note were not included. Subjective Patient ID: Freida Dougherty is a 74 y.o. male who presents for [facility] ER follow up. Freida is present today for [facility] ER follow up. Dx. Medication adverse effect (Ambien), Fall. He did not hurt himself when he fell. He had take his metformin, prostate pill and sleeping pill and drinking his ensure and the next thing he knows he is on the floor. called son who lives close and they called EMS. They had checked his sugar and it was normal. States they told him he was talking goofy. He does not remember anything until he was at the hospital. Over the past 2 weeks, how often [...] tablet Chew 81 mg 1 (one) time. Qefxssh-Ijxgsibuaeb-Wewcwoccmo (Breztri Aerosphere) 160-9-4.8 MCG/ACT aerosol Inhale 2 puffs every 12 (twelve) hours. carvedilol (Coreg) 6.25 MG tablet Take 1 tablet (6.25 mg) by mouth in the morning and 1 tablet (6.25 mg) before bedtime. 200 tablet 3 ciprofloxacin (Cipro) 500 MG tablet Take 1 tablet (500 mg) by mouth in the morning and 1 tablet (500 mg) before bedtime. Do all this for 14 days. (Patient not taking: Reported on 12/02/2024) 28 tablet 0 Drug [place] [facility] Pentips 31G X 6 MM misc [...] mg) by mouth Daily 100 tablet 3 [DISCONTINUED] zolpidem (Ambien) 10 MG tablet Take 1 tablet (10 mg) by mouth as needed at bedtime for sleep (Patient not taking: Reported on 12/02/2024) 30 tablet 0 No current facility-administered medications on file prior to visit. I have reviewed and reconciled the history and medication list with the patient today. Allergies Allergen Reactions Ambien [Zolpidem] Other Fall, overly sedated Social History Tobacco Use Smoking status: Every Day Current packs/day: 0.50 Types: Cigarettes Smokeless tobacco: Never Tobacco comments: 6-10 cigarettes/day Substance Use Topics Alcohol use: Not Currently Comment: caffeine: chocolate Drug use: Never Family History Family history unknown: Yes Past Medical History: Diagnosis Date Allergic Allergies Bronchitis Chronic airway obstruction (HCC) Chronic airway obstruction, not elsewhere classified COPD (chronic obstructive pulmonary disease) ([facility]) Cough COVID 03/26/2021 Positive Non immunized [...] 1999 :Diabetes mellitus, type 2 without comp. [place] [facility] [facility] [place] Procedure:CXR -QOUMODEZMZ-Z-SOP-JOSE MOHINIMONTY;Disease:[id number]-[id number]-EM PD Visit Vitals BP 132/76 Pulse (!) 120 Resp 16 Ht 5' 6 Wt 100 lb SpO2 99% BMI 16.14 kg/m Smoking Status Every Day BSA 1.45 m Review of Systems Constitutional: Negative for chills, fatigue and fever. Respiratory: Negative for cough, shortness of breath and wheezing. Cardiovascular: Negative for chest pain, palpitations and leg swelling. Gastrointestinal: Negative for abdominal pain, constipation, diarrhea, nausea and vomiting. Genitourinary: Nocturia Skin: Negative for rash. Objective Physical Exam Constitutional: General: He is not in acute distress. Comments: Thin HENT: Head: Normocephalic and atraumatic. Eyes: General: No scleral icterus. Cardiovascular: Rate and Rhythm: Regular rhythm. Tachycardia present. Heart sounds: No murmur heard. Pulmonary: Effort: Pulmonary effort is normal. No respiratory distress. Breath sounds: Wheezing present. No rhonchi or rales. Comments: Moist cough occasionally Musculoskeletal: General: No swelling. Skin: General: Skin is warm and dry. Neurological: General: No focal deficit present. Mental Status: He is alert and oriented to person, place, and time. Psychiatric: Mood and Affect: Mood normal. Behavior: Behavior normal. Assessment/Plan Diagnoses and all orders for this visit: Fall, subsequent encounter The patient was seen today in follow up of recent hospital ER visit. All available hospital records/labs/diagnostics were reviewed and discussed with the patient. Chronic kidney disease, stage 3a (CMS-HCC) - Basic metabolic panel; Future Will recheck on lab on . Nocturia Will discuss with Urology. Primary insomnia He has stopped the Ambien and has had no other falls. Denies injury from recent fall. Elevated PSA Has not heard from Urology yet. Provided pt with contact information for Dr. Tran Chew's office so his daughter can call them to get him scheduled. Hyperkalemia - Basic metabolic panel; Future Will recheck on lab on . Smoker Is actively trying to cut back and quit smoking. Is smoking < 1 PPD. Discussed smoking cessation with the patient. Encouraged patient to continue to cut back and soon quit smoking. Health risks of smoking, and benefits of quitting reviewed with the patient. Has gained two pounds since his last appointment. Continue Ensure drinks daily, currently drinking 2 a day. Advised him that General Surgery did leave a voicemail with his daughter to get him scheduled for an appointment. Follow up for Appointment As Scheduled. documented in this encounter [facility] 11-25-2024 History of Presen t illness Narrative Associated Problem(s): Elevated PSA Add Probiotic to help replenish the good bacteria that are destroyed by the Antibiotics Florastor Florajen Align or try Activia in Yogurt Probiotics reduce the risk of antibiotic induced diarrhea Patient says he has poor cell phone utilization review nurse and does not get phone calls Associated [...] tablet Chew 81 mg 1 (one) time. Frhfqpe-Suvgbibeshm-Dwbekxfcjf (Breztri Aerosphere) 160-9-4.8 MCG/ACT aerosol Inhale 2 puffs every 12 (twelve) hours. carvedilol (Coreg) 6.25 MG tablet Take 1 tablet (6.25 mg) by mouth in the morning and 1 tablet (6.25 mg) before bedtime. 200 tablet 3 Drug [place] Unifine Pentips 31G X 6 MM misc [...] classified COPD (chronic obstructive pulmonary disease) ([facility]) Cough COVID 03/26/2021 Positive Non immunized Diabetes mellitus ([facility]) Dyspnea Esophageal reflux Essential hypertension, benign [...] 2000 :Diabetes mellitus, type 2 without comp. [place] [facility] [place] Procedure:CXR -TKMHVKKKGN-J-RYG-TESHAYLEY HAJI;Disease:XOAVE-EGWEBLC-NT PD Visit Vitals Smoking Status Every Day Review of Systems Objective Physical Exam Assessment/Plan No follow-ups on file. documented in this encounter [facility] 08-04-2024 History of Presen t illness Narrative [...] with long-term current use of insulin (HCC) ([facility]) No Tobacco use Follow ADA 1800 [...] tablet Chew 81 mg 1 (one) time. Knhhwes-Vxgfcyiexdi-Broktmwrxk (Breztri Aerosphere) 160-9-4.8 MCG/ACT aerosol Inhale 2 puffs every 12 (twelve) hours. carvedilol (Coreg) 6.25 MG tablet Take 1 tablet (6.25 mg) by mouth in the morning and 1 tablet (6.25 mg) before bedtime. 200 tablet 3 Drug [place] Unifine Pentips 31G X 6 MM mis [...] of current healthcare providers: Patient Care Team: Laura Shea MD as PCP - General (Family [...] Do you have a medical power of [place] attorney?: No Objective : BP 112/68 Pulse [...] with long-term current use of insulin (HCC) ([facility]) No Tobacco use Follow ADA 1800 [...] of Visits Requested: 1 Electronically signed by Laura Shea MD on August 04, 2024 documented in this encounter [facility] 02-05-2024 History of Presen t illness Narrative Associated Problem(s): Smoker Discussed smoking cessation with the patient. Encouraged patient to try to cut back gradually and soon quit smoking. Discussed ways to quit smoking including gum, patches, medication, and gradually reducing the number of cigarettes smoked daily. Discussed potential health risks of tank terminal gauger smoking. Patient voiced understanding. Benefits of cessation, both health and financial, were reviewed. Associated Problem(s): Type 2 diabetes mellitus with stage 3a chronic kidney disease, with long-term current use of insulin (HCC) ([facility]) No Tobacco use Follow ADA 1800 [...] Associated Problem(s): Hypertension due to endocrine disorder (CMS/[facility]) Our specific goals, for your hypertension, [...] Last A1c was 6.9 Last edited by Joan Blevins MA on 02/05/2024 7:39 AM. Subjective [...] glucose trend. An ABRIL inhibitor/angiotensin II receptor natacha is being taken. Hypertension Pertinent negatives include [...] tablet Chew 81 mg 1 (one) time. Kpzwcjg-Wvnqwzhwpgd-Nariewsapa (Breztri Aerosphere) 160-9-4.8 MCG/ACT aerosol Inhale 2 puffs every 12 (twelve) hours. carvedilol (Coreg) 6.25 MG tablet Take 1 tablet (6.25 mg) by mouth in the morning and 1 tablet (6.25 mg) before bedtime. 200 tablet 3 Continuous Blood Gluc Education Professor (FreeStyle Solange 2 [place]) device 1 Units in the morning and 1 Units at noon and 1 Units in the evening and 1 Units before bedtime. Continuous Blood Gluc Sensor (FreeStyle Solange 2 Sensor) misc 1 Units every 14 (fourteen) days 6 each 3 Drug [place] Unifine Pentips 31G X 6 MM misc [...] 2000 :Diabetes mellitus, type 2 without comp. [place] [facility] [facility] [place] Procedure:CXR -IANUSADQVL-W-QWZ-TESSALON PERLES;Disease:ZOZRE-QRNLOXC-ND PD Visit Vitals BP 104/78 Ht 5' 6 [...] smoked daily. Discussed potential health risks of tank terminal gauger smoking. Patient voiced understanding. Benefits of cessation, both health and financial, were reviewed. Hypertension due to endocrine disorder ([facility]) - Primary Our specific goals, for [...] with long-term current use of insulin ([facility]) ([facility]) No Tobacco use Follow ADA 1800 diet [...] Surgery Other Visit Diagnoses Unspecified protein-calorie malnutrition ([facility]) Immunodeficiency due to conditions classified elsewhere ([facility]) Follow up in about 6 months (around 08/04/2024) for Diabetes. documented in this encounter [facility] 02-05-2024 Miscellaneous Notes Addended by: JOAN BLEVINS on: 02/05/2024 02:09 PM Modules accepted: Orders documented in this encounter [facility] 02-05-2024 Note Addended by: JOAN BLEVINS on: 02/05/2024 02:09 PM Modules accepted: Orders [facility] 02-05-2024 Note Addended by: JOAN BLEVINS on: 02/05/2024 02:09 PM Modules accepted: Orders [facility] Evaluation + Plan note Future Appointments Appointment Date:12/18/2024 02:00:00 PM Scheduled Provider: Location:[facility] Appointment Type:Urology CALL PAT FT Appointment Date:12/22/2024 09:00:00 AM Scheduled Provider: Location:[facility] Appointment Type:Urology FT Appointment Date:01/08/2025 08:15:00 AM Scheduled Provider:Tran Chew MD Location:[facility] Appointment Type:URO Office Visit [facility] Evaluation note Diagnosis Type 2 diabetes mellitus without complication, unspecified whether tank terminal gauger insulin use (CMS/HCC) Hypertension due to endocrine disorder (CMS/HCC) Otalgia [...] 2 diabetes mellitus without complication, unspecified whether tank terminal gauger insulin use (CMS/HCC) Infrarenal abdominal aortic aneurysm (AAA) without rupture (CMS/HCC) Medicare annual wellness visit, subsequent Type 2 diabetes mellitus with stage 3a chronic kidney disease, with long-term current use of insulin (HCC) (CMS/HCC) Essential hypertension, benign (CMS/HCC)- Primary Essential hypertension, benign Type 2 diabetes mellitus without complication, unspecified whether tank terminal gauger insulin use (CMS/HCC) Type 2 diabetes mellitus [...] Encounter for vaccination documented in this encounter [facility] HealthcareEvaluation note* Diagnosis Type 2 diabetes mellitus without complication, unspecified whether residential insulin use Hypertension due to endocrine disorder [...] 2 diabetes mellitus without complication, unspecified whether tank terminal gauger insulin use Infrarenal abdominal aortic aneurysm (AAA) without rupture (CMS/HCC) Medicare annual wellness visit, subsequent Type 2 diabetes mellitus with stage 3a chronic kidney disease, with long-term current use of insulin (HCC) (CMS/HCC) Essential hypertension, benign (CMS/HCC)- Primary Essential hypertension, benign Type 2 diabetes mellitus without complication, unspecified whether tank terminal gauger insulin use Type 2 diabetes mellitus with [...] 2 diabetes mellitus without complication, unspecified whether residential insulin use Type 2 diabetes mellitus with stage 3a chronic kidney disease, with long-term current use of insulin (HCC) (CMS/HCC) Chronic obstructive pulmonary disease, unspecified Unintentional weight loss of 10% body weight within 6 months Elevated PSA Elevated prostate specific antigen (PSA) Bilateral hearing loss, unspecified hearing loss type documented in this encounter [facility]* Diagnosis Type 2 diabetes mellitus without complication, unspecified whether residential insulin use (HCC) Hypertension due to endocrine [...] 2 diabetes mellitus without complication, unspecified whether tank terminal gauger insulin use (HCC) Infrarenal abdominal aortic aneurysm (AAA) without rupture Medicare annual wellness visit, subsequent Type 2 diabetes mellitus with stage 3a chronic kidney disease, with long-term current use of insulin (HCC) Essential hypertension, benign- Primary Essential hypertension, benign Type 2 diabetes mellitus without complication, unspecified whether residential insulin use (HCC) Type 2 diabetes mellitus [...] for vaccination Routine general medical examination at [facility] care facility- Primary Routine general medical examination at a [facility] Type 2 diabetes mellitus without complication, unspecified whether residential insulin use (HCC) Type 2 diabetes mellitus [...] specific antigen (PSA) documented in this encounter [facility] HealthcareEvaluation note* Diagnosis Type 2 diabetes mellitus without complication, unspecified whether residential insulin use (HCC) Hypertension due to endocrine [...] maintaining sleep Routine general medical examination at [facility] facility- Primary Routine general medical examination at a [facility] facility Pure hypercholesterolemia Pure hypercholesterolemia Essential hypertension, benign Essential hypertension, benign Screening for malignant neoplasm of colon Type 2 diabetes mellitus without complication, unspecified whether tank terminal gauger insulin use (HCC) Infrarenal abdominal aortic aneurysm (AAA) without rupture Medicare annual wellness visit, subsequent Type 2 diabetes mellitus with stage 3a chronic kidney disease, with long-term current use of insulin (HCC) Essential hypertension, benign- Primary Essential hypertension, benign Type 2 diabetes mellitus without complication, unspecified whether tank terminal gauger insulin use (HCC) Type 2 diabetes mellitus [...] for vaccination Routine general medical examination at [facility] care facility- Primary Routine general medical examination at a [facility] care [facility] Type 2 diabetes mellitus without complication, unspecified whether residential insulin use (HCC) Type 2 diabetes mellitus [...] Elevated PSA Elevated prostate specific antigen (PSA) Fall, subsequent encounter- Primary Chronic kidney disease, stage 3a (CMS-HCC) Nocturia Primary insomnia Persistent disorder of initiating or maintaining sleep Elevated PSA Elevated prostate specific antigen (PSA) Hyperkalemia Hyperpotassemia Smoker Tobacco use disorder documented in this encounter [facility]* Diagnosis Type 2 diabetes mellitus without complication, unspecified whether residential insulin use (HCC) Hypertension due to endocrine [...] Primary Routine general medical examination at a [facility] care facility Pure hypercholesterolemia Pure hypercholesterolemia Essential hypertension, benign Essential hypertension, benign Screening for malignant neoplasm of colon Type 2 diabetes mellitus without complication, unspecified whether tank terminal gauger insulin use (HCC) Infrarenal abdominal aortic aneurysm (AAA) without rupture Medicare annual wellness visit, subsequent Type 2 diabetes mellitus with stage 3a chronic kidney disease, with long-term current use of insulin (HCC) Essential hypertension, benign- Primary Essential hypertension, benign Type 2 diabetes mellitus without complication, unspecified whether residential insulin use (HCC) Type 2 diabetes mellitus [...] 2 diabetes mellitus without complication, unspecified whether residential insulin use (HCC) Type 2 diabetes mellitus [...] Elevated PSA Elevated prostate specific antigen (PSA) Elevated PSA- Primary Elevated prostate specific antigen (PSA) Type 2 diabetes mellitus with stage 3a chronic kidney disease, with long-term current use of insulin (HCC) Type 2 diabetes mellitus without complication, without long-term current use of insulin (HCC) Inguinal hernia of left side without obstruction or gangrene documented in this encounter [facility] HealthcareEvaluation note* Diagnosis Type 2 diabetes mellitus without complication, unspecified whether tank terminal gauger insulin use (HCC) Hypertension due to endocrine [...] at a health care facility Pure hypercholesterolemia Essential hypertension, benign Screening for malignant neoplasm of colon Type 2 diabetes mellitus without complication, unspecified whether residential insulin use (HCC) Infrarenal abdominal aortic aneurysm (AAA) without rupture Medicare annual wellness visit, subsequent Type 2 diabetes mellitus with stage 3a chronic kidney disease, with long-term current use of insulin (HCC) Essential hypertension, benign- Primary Type 2 diabetes mellitus without complication, unspecified whether tank terminal gauger insulin use (HCC) Type 2 diabetes mellitus with stage 3a chronic kidney disease, with long-term current use of insulin (HCC) Pure hypercholesterolemia Weight loss Loss of weight [...] 2 diabetes mellitus without complication, unspecified whether residential insulin use (HCC) Type 2 diabetes mellitus [...] Elevated PSA Elevated prostate specific antigen (PSA) Elevated PSA- Primary Elevated prostate specific antigen (PSA) Type 2 diabetes mellitus with stage 3a chronic kidney disease, with long-term current use of insulin (HCC) Type 2 diabetes mellitus without complication, without long-term current use of insulin (HCC) Inguinal hernia of left side without obstruction or gangrene Inguinal hernia of left side without obstruction or gangrene documented in this encounter [facility] [facility] Narrative No data available for this section [facility] Progress note No data available for this section [facility] Summary Purpose Family History No Family History Records FoundNo Family History Records FoundNo Family History Records Found No data available for this section No Family History Records FoundNo Family History [...] section and content) DATE CREATED AUTHOR 10/16/2017 [facility] DATE CREATED AUTHOR AUTHOR'S ORGANIZ ATION 03/28/2022 [facility] DATE CREATED AUTHOR AUTHOR'S ORGANIZ ATION 12/07/2024 [facility] DATE CREATED AUTHOR AUTHOR'S ORGANIZ ATION 12/25/2024 [facility] EPIC DATE CREATED AUTHOR AUTHOR'S ORGANIZ ATION 01/02/2025 [facility] DATE CREATED AUTHOR AUTHOR'S ORGANIZ ATION 01/06/2025 [facility] Care Teams (unrecognized sec tion and content) Nursery Technician Relationship Specialty Start Date End Date Laura Shea MD [address] [facility] [address] [place] [address] PCP - General Family Medicine 09/08/22 Nursery Technician Relationship Specialty Start Date End Date Laura Shea MD [address] [facility] [address] [place] [address] PCP - General Family Medicine 09/08/22 Laura Shea MD [address] [facility] [address] [place] [address] PCP - ACO Reach 05/25/23 Nursery Technician Relationship Specialty Start Date End Date Laura Shea MD [address] [facility] [address] [place] [address] PCP - General Family Medicine 09/08/22 Nursery Technician Relationship Specialty Start Date End Date Laura Shea MD [address] [facility] [address] [place] [address] PCP - General Family Medicine 09/08/22 Nursery Technician Relationship Specialty Start Date End Date Laura Shea MD [address] [facility] [address] [place] [address] PCP - General Family Medicine 09/08/22 Nursery Technician Relationship Specialty Start Date End Date Laura Shea MD [address] [facility] 110 [place] [address] PCP - General Family Medicine 09/08/22 Nursery Technician Relationship Specialty Start Date End Date Laura Shea MD [address] [facility] [address] [place] [address] PCP - General Family Medicine 09/08/22 Nursery Technician Relationship Specialty Start Date End Date Laura Shea MD 112 [facility] 110 [place] [address] PCP - General Family Medicine 09/08/22 Nursery Technician Relationship Specialty Start Date End Date Laura Shea MD [address] [address] PCP - General Family Medicine 09/08/22 Nursery Technician Relationship Specialty Start Date End Date Laura Shea MD 112 [facility] 110 [place] [address] PCP - General Family Medicine 09/08/22 Reason for Visit (unrecogniz ed section and content) Reason Comments Diabetes Last A1c was 6.9 Reason Comments Medicare Annual Wellness Visit Subsequen t Reason Comments Hypertension Reason Comments Diabetes Results Elevated PSA-- pt is sched to see urology Reason Comments Inguinal hernia consult Lt groin discomf ort, pain comes and goes Specialty Diagnoses / Procedures Referred By Contac t Referred To Contact General Surgery Diagnoses Inguinal hernia of left side without obstruction or gangrene Procedures [place] OFFICE/OUTPATIENT NEW HIGH MDM 60 MINUTES Laura Shea MD [address] [facility] 110 [place] [address] Phone: tel: fax: Prabhakar Carmona MD [address] [address] Phone: tel: fax: Referral ID Status Reason Start Date Expiration Date V isits Requested Visits Authorized [id number] Closed Specialty Services Required 11/25/2024 05/24/2025 1 FOR RECORDS PERTAINING TO PATIENTS WHO ARE [...] BE BASED ON THE PRIMARY CLINICAL RECORDS. [facility] [employer] [facility]. provides no warranty or guarantee of the accuracy or completeness of information in this document.
--- OUTSIDE RECORDS SUMMARY | 2025-01-06 17:42 | XMS_ITS | Encounter Summary ---
Author Organization [facility] Address [address] [place] [address] Care Team Providers Care Development Specialist Name Role Phone Alda Osborne MD Primary Care Provider [phone] Alda Osborne MD Unavailable Joan Calvo RN Unavailable [phone] Alda Osborne MD Unavailable Encounter Details Date Type Department Care Team (Late st Contact Info) Description 04/23/2023 Abstract [facility] [place] [facility] [place] 112 [facility] 110 [place] [address] Alda Osborne MD 112 [facility] 110 [place], [place] [id number] Social History Tobacco Use Types Packs/Day Years [...] How often do you attend chur or jehovah's witness services? Never 01/25/2023 Do you belong to any clubs o r organizations such as holiness groups, unions, fraternal or athletic groups, or [...] and heating? Not hard at all 01/25/2023 [facility] - Occupational Stress Questionnaire Answer Date [...] Office Visit [facility] [address] [phone] Chi Reyes DO 703 [facility] 150 [place] [address] 03/10/2025 10:30 AM EST Office Visit [facility] [place] [address] [facility] [address] [place] [address] Alda Osborne MD [address] [facility] [address] [place] [address] documented as of this encounter Visit Diagnoses Not on filedocumented in this encounter Care Teams Development Specialist Relationship Specialty Start Date End Date Alda Osborne MD [address] [facility] [address] [place] [address] PCP - General Family Medicine 09/08/22 Alda Osborne MD [address] [facility] [address] [place], [place] [address] PCP - ACO Reach 05/25/23 05/01/24 Alda Osborne MD [address] [facility] [address] [place], [place] [id number] PCP - ACO Reach 05/09/24 06/26/24 Joan Calvo, RN [address] [place] [address] [facility] 05/02/24 05/23/24 documented as of this encounter
--- OUTSIDE RECORDS SUMMARY | 2025-01-06 17:42 | XMS_ITS | Encounter Summary ---
Author Organization [facility] Address [address] [place] [address] Care Team Providers Care Tumor Registrar Name Role Phone Alda Osborne MD Primary Care Provider [phone] Alda Osborne MD Unavailable Joan Calvo RN Unavailable [phone] Alda Osborne MD Unavailable Encounter Details Date Type Department Care Team (Late st Contact Info) Description 10/30/2022 Orders Only [facility] [place] [facility] [address] [place] [address] [place] [phone] Veronique Ellis, DO [address] [place] [address] Social History Tobacco Use Types Packs/Day Years [...] EST Office Visit [facility] 703 [facility] [address] [place] [phone] Chi Reyes, DO [address] [facility] 150 [place] [address] 03/10/2025 10:30 AM EST Office Visit [facility] [place] [facility] [address] [place] [address] [place] [address] Alda Osborne MD [address] [facility] [address] [place] [address] documented as of this encounter Procedures Procedure Name Priority Date/Time Associated Diagnosis Comments CT HEAD/BRAIN W & WO CONTRAST Routine 10/29/2022 10:58 AM EDT XR CHEST 1 VIEW Routine 10/29/2022 10:57 AM EDT documented in this encounter Results * CT HEAD/BRAIN W & WO CONTRAST (10/29/2022 10:58 AM EDT) Anatomical Region Laterality Modality Radiographic Ayla ging Veronique Ellis DO IMG XR PROCEDURES Final Resu lt * XR chest 1 view (10/29/2022 10:57 AM EDT) Anatomical Region Laterality Modality Chest Radiographic Ayla ging Veronique Ellis DO IMG XR PROCEDURES Final Resu lt documented in this encounter Visit Diagnoses Not on filedocumented in this encounter Care Teams Tumor Registrar Relationship Specialty Start Date End Date Alda Osborne MD [address] [facility] [address] [place] [address] PCP - General Family Medicine 09/08/22 Alda Osborne MD [address] [facility] [address] [place] [address] PCP - ACO Reach 05/25/23 05/01/24 Alda Osborne MD [address] [facility] [address] [place] [address] PCP - ACO Reach 05/09/24 06/26/24 Joan Calvo, RN [address] [place] [address] [facility] 05/02/24 05/23/24 documented as of this encounter
--- NOTE | 2025-01-06 17:50 | ECG_ITS ---
[facility] Test Date: 2025-01-06 Pat Name: FREIDA RIDDLE Department: Room: - Gender: Male Plant Specialist: : [id number] Requested By: [id number] Order Number: [id number] Reading MD: ANGELICA ZAMUDIO M.D. Measurements Intervals Eldred Rate: 91 P: 82 HI: 192 QRS: 84 QRSD: 84 T: 84 QT: 348 QTc: 397 Interpretive Statements 1100 Sinus rhythm 9110 normal ECG Compared to ECG 11/26/2024 01:06:09 Supraventricular complex(es) no longer present Electronically Signed On 01-06-2025 19:10:22 EDT by ANGELICA ZAMUDIO M.D.
--- NOTE | 2025-01-06 17:51 | ED.GENADUL1 ---
HPI HPI - General Adult General Chief complaint: Recheck/Abnormal Lab/Rx Stated complaint: ABNORMAL LABS Time Seen by Provider: 01/06/25 17:46 Source: patient and family Mode of arrival: walk-in Limitations: no limitations History of Present Illness HPI narrative: 74-year-old male presents for abnormal blood test. He had preop labs drawn today and his daughter received a phone call that his potassium was 6.7 and they told her to take him to the nearest emergency department. The patient does not seem to have any symptoms. He has been having dizziness for weeks or months and he had the preop testing for a scheduled hernia surgery which is to be in 2 weeks. He does not seem to be on potassium supplements. Related Data Home Medications ?Medication ?Instructions ?Recorded ?Confirmed albuterol sulfate 2.5 mg/3 mL 2.5 mg continuous nebulization Q4H 10/29/22 11/26/24 (0.083 %) solution for nebulization PRN bronchospasm bupropion HCl 150 mg tablet,12 hr 150 mg PO Q12H 10/29/22 09/17/24 sustained-release carvedilol 6.25 mg tablet 6.25 mg PO Q12H 10/29/22 11/26/24 lisinopril 20 mg tablet 20 mg PO DAILY 10/29/22 11/26/24 metformin 1,000 mg tablet 1,000 mg PO BID 10/29/22 11/26/24 pravastatin 40 mg tablet 40 mg PO DAILY 10/29/22 11/26/24 insulin glargine 100 unit/mL (3 8 unit subcut QPM 09/17/24 11/26/24 mL) subcutaneous pen (Lantus Solostar U-100 Insulin) ciprofloxacin HCl 500 mg tablet 500 mg PO BID 11/26/24 11/26/24 Previous Rx's ?Medication ?Instructions ?Recorded fluticasone propionate 50 2 spray intranasal QD 30 days #1 g 04/23/23 mcg/actuation nasal spray,suspension pen needle, diabetic 31 gauge x #100 ea 04/23/23 1/ ondansetron 4 mg disintegrating 4 mg PO Q6H PRN nausea and 09/17/24 tablet vomiting #20 tabs Allergies Allergy/AdvReac Type Severity Reaction Status Date / Time No Known Drug Allergies Allergy Verified 01/06/25 17:38 Opioid HPI Opioid Management Most Recent Opioid Data: Last ORT Total Score 0 11/26/24, 04:39 Last ORT Risk Category Low Risk 11/26/24, 04:39 Review of Systems ROS Narrative A ten point review of systems is negative except as noted above. [facility] Medical History (Updated 01/06/25 @ 18:25 by Luis Carlos Chris MD) Fall ?W19.XXXA - Unspecified fall, initial encounter (ICD-10) Hyperglycemia ?R73.9 - Hyperglycemia, unspecified (ICD-10) Acute renal failure ?N17.9 - Acute kidney failure, unspecified (ICD-10) Hyponatremia ?E87.1 - Hypo-osmolality and hyponatremia (ICD-10) Hyperkalemia ?E87.5 - Hyperkalemia (ICD-10) Cirrhosis ?K74.60 - Unspecified cirrhosis of liver (ICD-10) Hyperlipidemia associated with type 2 diabetes mellitus ?E11.69 - Type 2 diabetes mellitus with other specified complication (ICD-10) ?E78.5 - Hyperlipidemia, unspecified (ICD-10) Hypertension ?I10 - Essential (primary) hypertension (ICD-10) COPD (chronic obstructive pulmonary disease) ?J44.9 - Chronic obstructive pulmonary disease, unspecified (ICD-10) Otitis media ?H66.90 - Otitis media, unspecified, unspecified ear (ICD-10) Diabetes ?E11.9 - Type 2 diabetes mellitus without complications (ICD-10) Social History Within the past year, how often did you have a drink containing alcohol: never Score interpretation: A score less than 4 is consistent with normal alcohol consumption. Smoking status: Current every day smoker Non-prescribed substance use: denies use Highest level of school completed/degree received: high school graduate Little interest or pleasure in doing things: not at all Feeling down, depressed, or hopeless: not at all Exam Narrative Exam Narrative: Nurses note and vital signs reviewed and patient is not hypoxic. General:The patient appears his stated age and he is in no acute distress Skin:Warm, dry, no pallor noted.There is no rash noted. Head:Normocephalic, atraumatic Eye: Normal conjunctiva, no drainage Ears, Nose, Mouth, and Throat: oral mucosa is moist. Nares patent. Cardiovascular:Regular Rate and Rhythm Respiratory:Patient is in no distress, no accessory muscle use, lungs are clear to auscultation, no wheezing, rales or rhonchi Back:non-tender GI: Nontender Musculoskeletal: The patient has no evidence of calf tenderness, no pitting edema, symmetrical pulses noted bilaterally Neurological: Awake and alert Psychiatric:Cooperative Constitutional Vital Signs, click to edit/add: Last Vital Signs Temp 97.5 F L 01/06/25 17:43 Pulse 105 H 01/06/25 17:43 Resp 20 01/06/25 17:43 BP 104/88 01/06/25 17:43 Pulse Ox 97 01/06/25 17:43 O2 Del Method Room Air 01/06/25 17:43 Course Vital Signs Vital signs: Vital Signs Temperature 97.5 F L 01/06/25 17:43 Pulse Rate 105 H 01/06/25 17:43 Respiratory Rate 20 01/06/25 17:43 Blood Pressure 104/88 01/06/25 17:43 Pulse Oximetry 97 01/06/25 17:43 Oxygen Delivery Method Room Air 01/06/25 17:43 Temperature 97.5 F L 01/06/25 17:43 Pulse Rate 105 H 01/06/25 17:43 Respiratory Rate 20 01/06/25 17:43 Blood Pressure 104/88 01/06/25 17:43 Pulse Oximetry 97 01/06/25 17:43 Oxygen Delivery Method Room Air 01/06/25 17:43 Medical Decision Making MDM Narrative Medical decision making narrative: Potassium has come back at 6.3 with a BUN of 63 and a creatinine of 1.77. Ordered D50 and insulin and the potassium will need to be rechecked. The patient is signed out to Dr. Love at change of shift. Differential Diagnosis Differential Diagnosis: Hyperkalemia, lab error, acute kidney injury Lab Data Lab results reviewed: Yes I reviewed the patient's lab results Labs: Lab Results 01/06/25 Range/Units 18:03 WBC 9.0 (4.0-11.0) 10^3/uL RBC 3.78 L (4.70-6.10) 10^6/uL Hgb 12.3 L (14.0-18.0) g/dL Hct 35.3 L (42.0-54.0) % MCV 93.4 (80.0-94.0) fL MCH 32.5 (25.9-34.0) pg MCHC 34.8 (29.9-35.2) g/dL RDW 12.9 (11.0-15.0) % Plt Count 222 (150-450) 10^3/uL MPV 9.9 (9.5-13.5) fL Neut % (Auto) 71.0 (43.0-75.0) % Lymph % (Auto) 18.5 L (20.5-60.0) % Cameron % (Auto) 5.6 (1.7-12.0) % Eos % (Auto) 3.7 (0.9-7.0) % Baso % (Auto) 0.6 (0.2-2.0) % Neut # (Auto) 6.4 (1.4-6.5) 10^3/uL Lymph # (Auto) 1.7 (1.2-3.8) 10^3/uL Cameron # (Auto) 0.5 (0.3-0.8) 10^3/uL Eos # (Auto) 0.3 (0.0-0.7) 10^3/uL Baso # (Auto) 0.1 (0.0-0.1) 10^3/uL Abs Immat Gran (auto) 0.05 H (0.00-0.03) 10^3/uL Imm/Tot Granulo (auto) 0.6 H (0.0-0.5) % Sodium 138 (136-145) mmol/L Potassium 6.3 H* (3.5-5.1) mmol/L Chloride 105 (98-107) mmol/L Carbon Dioxide 22.7 (21.0-32.0) mmol/L Anion Gap 16.6 BUN 63.0 H (7.0-18.0) mg/dL Creatinine 1.77 H (0.70-1.30) mg/dL Est GFR ( Amer) 46 L (>=60 mL/min/1.73m^2) Est GFR (Non-Af Amer) 38 L (>=60 mL/min/1.73m^2) BUN/Creatinine Ratio 35.6 Glucose 116 H (74-106) mg/dL Calcium 9.2 (8.5-10.1) mg/dL ECG Data Attestation: I personally reviewed and interpreted this ECG as follows: (KG on my interpretation shows sinus rhythm with a rate of 91 and no hyperacute T waves.) Discharge Plan Discharge Patient Disposition: Still a Patient
[2025-01-06 18:11] LABS: Hematocrit 35.3 % (42.0-54.0); Hemoglobin 12.3 g/dL (14.0-18.0); Immature Granulocytes Abs Auto 0.05 10^3/uL (0.00-0.03); Immature Granulocytes Pct Auto 0.6 % (0.0-0.5); Lymphocytes Absolute Auto 1.7 10^3/uL (1.2-3.8); Mean Corpuscular HGB Conc 34.8 g/dL (29.9-35.2); Mean Corpuscular Hemoglobin 32.5 pg (25.9-34.0); Mean Corpuscular Volume 93.4 fL (80.0-94.0); Platelet Count 222 10^3/uL (150-450); Red Blood Count 3.78 10^6/uL (4.70-6.10); White Blood Count 9.0 10^3/uL (4.0-11.0)
[2025-01-06 18:21] LABS: Anion Gap 16.6; Blood Urea Nitrogen 63.0 mg/dL (7.0-18.0); Calcium 9.2 mg/dL (8.5-10.1); Carbon Dioxide 22.7 mmol/L (21.0-32.0); Chloride 105 mmol/L (98-107); Estimated GFR (African America 46 (>=60 mL/min/1.73m^2); Estimated GFR (Non-African Ame 38 (>=60 mL/min/1.73m^2); Glucose 116 mg/dL (74-106); Sodium 138 mmol/L (136-145)
[2025-01-06 18:22] LABS: Potassium 6.3 mmol/L (3.5-5.1)
[2025-01-06] MEDS: INSULIN REGULAR, HUMAN (100 UNIT/ML) 10 ML MDV 10 UNIT IV (18:42)
[2025-01-06] MEDS: DEXTROSE 50 %-WATER 25 GM/50 ML SYRINGE IV (18:42)
--- NOTE | 2025-01-06 19:11 | PC.NURSE ---
i waked into this patient awake and alert sitting upright on the bed, i introduced myself to this patient. this patient voices no complaints, needs and shows no signs of distress.
--- NOTE | 2025-01-06 20:19 | PC.NURSE ---
this patient awake and alert sitting upright talking to his daughter, who is now in the room. i informed them both that i would talk to the
--- NOTE | 2025-01-06 20:26 | PC.NURSE ---
this patient was informed that Dr Love would like to wait until 9:00 pm for your next blood draw
[2025-01-06 21:25] LABS: Potassium 6.2 mmol/L (3.5-5.1)
--- NOTE | 2025-01-06 22:04 | PC.NURSE ---
this patient informed of his room here will be 202 and Dahiana will be your nurse. I will call your nurse to see if she is ready for you and i some paper work to finish up
--- OUTSIDE RECORDS SUMMARY | 2025-01-06 22:29 | XMS_ITS | CCD ---
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 Healthcare (1 source) No Known Medication Allergies; Translations: [No Known Medication Allergies] Propensity to adverse reactions (disorder) [facility] Repository Medications Current Medications Medication Drug Class(es) [...] tablet 08/04/2024 08/18/2024 Active Continuous Blood Gluc Motor Vehicle Assembler (FreeStyle Sol[place] 2 [place]) device (2 sources) Start: 05-01-2023 End: 04-30-2024 Continuous Blood Gluc Motor Vehicle Assembler (FreeStyle Sol[place] 2 [place]) device Indications: Type 2 diabetes mellitus without [...] 2 diabetes mellitus without complication, unspecified 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 (HCC) , Type 2 diabetes [...] Refill(s) 0, Start day prior to procedure., [facility], 170, cm, 12/11/24 8:54:00 EDT, Height/Length [...] meal., # 30 cap(s), Refills(s) 11, Pharmacy: [facility], 170, cm, 12/11/24 8:54:00 EDT, Height/Length [...] disease (1 source) Atherosclerotic heart disease of [place] coronary artery without angina pectoris; Translations: [ASHD [place] CA W/O ANGINA PECTORIS] Onset: 03-28-2022 Chronic [...] Translations: [Immunodeficiency due to conditions classified elsewhere ([facility])] 02-05-2024 Chronic Immunizations and screening for infectious [...] malnutrition] 02-05-2024 Chronic Other aftercare (1 source) snf (current) use of aspirin; Translations: [[facility] CURRENT USE OF ASPIRIN] Onset: 03-28-2022 Episodic Other aftercare (1 source) Other 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 therapy; Translations: [OTH [facility] CURRENT DRUG THERAPY] Onset: 03-28-2022 Episodic Other aftercare (1 source) snf (current) use of insulin; Translations: [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 MMCOE CURRENT USE OF INSULIN] Onset: 03-28-2022 Episodic Other aftercare (1 source) 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 drugs; Translations: [[facility] USE ORAL HYPOGLYCEMIC DX] Onset: 03-28-2022 Episodic [...] to rad/onc Where: [address], [place] [address] [phone] Someone Will Contact You Regarding These Appointments [facility] External Ambulatory Referral, Other (needs to be filled in), Other Referral, Referral to radiation oncology to discuss prostate cancer treatment options, 01/05/25 14:04:00 EDT, Prostate cancer Medications What How Much When Why Instructions New tadalafil (tadalafil 5 mg oral tablet) 1 Tablets By Mouth Every day BPH with urinary obstruction Refills: 11 Take for urination Pickup at [facility] Unchanged albuterol (albuterol 0.083% Inh Beba [...] physician if questions or concerns Pharmacy Information [facility]: [address], [place] [id number] [phone] What How Much When Comments Stop Taking [...] Materials [place] (more content not included)... Normal [facility] Urology Office/Clinic Noteon 01-05-2025 Urology Office/Clinic Note [...] cT2a high risk disease (due to PSA) Berne 7 (3+4), GG2. +2/12 cores (Right Mid, Right Lateral [place]) Highest core involvement 9%. No cribriform pattern. [...] -Will s (more content not included)... Normal [facility] Comment on above: Result Comment: Elec tronically Signed By: Jeevan CARMONA, Tran Crouch\.br\Date and Time Signed: 01/05/25 14:23 EDT Prostate Histology ([facility]) on 12-30-2024 Prostate Histology Diagnosis Info Invalid Interpretation Code [facility] Comment on above: Result Comment: A :P rostate,Left Lateral Base:Needle Biopsy Interpretation - - Benign prostatic tissue. MicroScopic Description - A :Prostate,Left Base:Needle Biopsy Interpretation - - Benign prostatic tissue. MicroScopic Description - A :Prostate,Left Lateral Mid:Needle Biopsy Interpretation - - Benign prostatic tissue. MicroScopic Description - A :Prostate,Left Mid:Needle Biopsy Interpretation - - Benign prostatic tissue. MicroScopic Description - A :Prostate,Left Lateral [place]:Needle Biopsy Interpretation - - Benign prostatic tissue. MicroScopic Description - A :Prostate,Left [place]:Needle Biopsy Interpretation - - Benign prostatic tissue. MicroScopic Description - A :Prostate,Right Base:Needle Biopsy Interpretation - - Benign prostatic tissue. MicroScopic Description - A :Prostate,Right Lateral Base:Needle Biopsy Interpretation - - Benign prostatic tissue. MicroScopic Description - A :Prostate,Right Mid:Needle Biopsy Interpretation - - Acinar adenocarcinoma of prostate; Berne score 7(3+4); Tumor measures 0.2 cm in length; 9% of the core involved by tumor; 1 of 1 core involved. MicroScopic Description - A :Prostate,Right Lateral Mid:Needle Biopsy Interpretation - - Benign prostatic tissue. MicroScopic Description - A :Prostate,Right [place]:Needle Biopsy Interpretation - - Benign prostatic tissue. MicroScopic Description - A :Prostate,Right Lateral [place]:Needle Biopsy Interpretation - - Acinar adenocarcinoma of prostate; Berne score 6(3+3); Tumor measures 0.07 cm in [...] Mid consists of a cylindrical fragment of villaeral-white soft tissue measuring 1.47 cm. Totally submitted in Left Bx Chip jesus 4 from the arrow outward in alphabetical order.. Site ID:E color villareal-white fixative Formalin cores 1 units cm Received in jesus 5 of 6 of formalin biopsy board with the patient???s name labeled Left Lateral [place] consists of a cylindrical fragment of villareal-white soft tissue measuring 1.72 cm. Totally submitted in Left Bx Chip jesus 5 from the arrow outward in alphabetical order.. Site ID:F color villareal-white fixative Formalin cores 1 units cm Received in jesus 6 of 6 of formalin biopsy board with the patient???s name labeled Left [place] consists of a cylindrical fragment of villareal-white [...] content not included)... Performed By: #### 1 [id number] #### [facility] [address] [place] [address] H&P Updateon 12-22-2024 H&P Update H&P Update Patient: FREIDA DOUGHERTY Age: 74 years Sex: Male : 1950 Associated Diagnoses: None Author: Jeevan CARMONA, Tran Crouch Basic Information I have reviewed prior notes, spoke with patient, no changes to history. Patient elects to proceed with surgery as planned. Health Status Procedure history: Colonoscopy (861248282). Repair of ectropion ([id number]). Social History Social & Psychosocial Habits Tobacco 12/11/2024 Tobacco Use: 10 or more cigarettes (1/ Type: Cigarettes Smoking Cessation Yes . Allergies: Allergic Reactions (Selected) No Known Medication Allergies Current medications: (Selected) Prescriptions Prescribed Bactrim D.S. 800 mg-160 mg Tab: 1 tab(s), Oral, q12hr, 6 tab(s), Refill(s) 0, Start day prior to procedure., [facility], 170, cm, 12/11/24 8:54:00 EDT, Height/Length Dosing, 45.1, kg, 12/11/24 8:54:00 EDT, Weight Dosing tamsulosin 0.4 mg Cap: 0.4 mg = 1 cap(s), Oral, Bedtime, Monitor for lightheadedness or dizziness. Take 30 minutes after a meal., # 30 cap(s), Refills(s) 11, Pharmacy: [facility], 170, cm, 12/11/24 8:54:00 EDT, Height/Length [...] list: All Problems Allergic / SNOMED CT 4563586092 / Confirmed Allergies / SNOMED CT 8331312220 / Confirmed BPH with urinary obstruction / SNOMED CT 2982721966 / Confirmed Bronchitis / SNOMED CT 65770232 / Confirmed Chronic airway obstruction / SNOMED CT 303336955 / Confirmed Chronic obstructive pulmonary disease (COPD) / SNOMED CT 562226239 / Confirmed Diabetes mellitus / SNOMED CT 236128884 / Confirmed Dyspnea / SNOMED CT 853263725 / Confirmed Elevated PSA / SNOMED CT 4889739471 / Confirmed Esophageal reflux / SNOMED CT 424024773 / Confirmed Essential hypertension / SNOMED CT 03922733 / Confirmed 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 Hyperlipemia / SNOMED CT 95030751 / Confirmed Hyperlipidemia / SNOMED CT 38450432 / Confirmed Mastoiditis of both sides / SNOMED CT 8163997661 / Confirmed Pancreatitis / SNOMED CT 108942921 / Confirmed Smoker / SNOMED CT 535299629 / Confirmed Tobacco use / SNOMED CT 1130085446 / Confirmed Type 2 diabetes mellitus without complication / SNOMED CT 307855077 / Confirmed Normal [facility] Comment on above: Result Comment: Elec tronically Signed By: Jeevan CARMONA, Tran Rainey.br\Date and Time Signed: 12/22/24 09:11 EDT Inpatient Patient Summaryon 12-22-2024 Inpatient Patient Summary Inpatient Patient Summary [place] [address] Clinical Summary Person Information Name: FREIDA DOUGHERTY Age: 74 Years : 1950 Sex: Male PCP: LAURA SHEA MD Marital Status: Unknown Race: White Ethnicity: Non- or Language: Hungarian Visit Id: Visit Reason: ELEVATED PSA, BPH WITH URINARY OBSTRUCTION Speciality: Acuity: Enc Type: Outpatient Med Service: Surgery Arrival: 12/22/2024 08:43:55 Discharge: Dispo Type: Address: [address] [place] [phone] Provider Notes: Diagnosis: Elevated PSA Problems Active [...] Follow up: With: Address: When: Tran Chew [address] [place] [address], [place] [phone] Business (1) Comments: Keep scheduled appointment Please call if you need to reschedule Type Location Start Finish State URO Office Visit [facility] 01/08/2025 8:15 AM 01/08/2025 8:30 AM Confirmed Patient Education Information: EU - Transrectal Ultrasound of the Prostate with US guided biopsy Discharge Instructions (CUSTOM) [place] [facility] Main OR Intraoperative Recor don 12-22-2024 Main OR Intraoperative Record Main OR Intraoperative Record IntraOp Document Type FTURO Summary Primary Physician: Tran Chew MD Finalized Date/Time: 12/22/24 09:29:08 Pt. Name: FREIDA DOUGHERTY Etsela MacielB./Sex: 1950 Male Med Rec #: [id number] Physician: Tran Chew MD Financial #: [id number] Pt. 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 Condition Intact, [place], Warm, & Description unchanged Dry Additional Tissue [...] By: Josué Taveras Ii 12/22/24 09:29 Normal [facility] Main OR Preoperative Recordo n 12-22-2024 Main OR Preoperative Record Main OR Preoperative Record Holding Area Document Type FTURO Summary Primary Physician: Tran Chew MD Finalized Date/Time: 12/22/24 09:51:35 Pt. Name: FREIDA DOUGHERTY Estela MacielB./Sex: 1950 Male Med Rec #: [id number] Physician: Tran Chew MD Financial #: [id number] Pt. Type: O Room/Bed: / Admit/Disch: 12/22/24 [...] By: Josué Taveras Ii 12/22/24 09:51 Normal [facility] Operative Reporton Operative Report Operative Report Patient: FREIDA DOUGHERTY Age: 74 years Sex: Male : 1950 Associated Diagnoses: None Author: Tran Chew MD Procedure Procedure Date: 12/22/2024. Confirmed: patient, procedure, site, safety procedures followed. Performed by: Tran Chew MD. Type of procedure: PROCEDURE PERFORMED: 1. Transrectal ultrasound of the prostate and seminal vesicles (67772). 2. Ultrasound for needle biopsy (64163). 3. Prostate biopsy (11611). 4. Periprostatic nerve block . Wound identification: [...] concerns.. Impression and Plan Diagnosis Elevated PSA (JRP22-LO R97.20, Discharge, Medical). Diagnosis Elevated PSA (OSW29-YK R97.20, Discharge, Medical). Normal [facility] Comment on above: Result Comment: Elec tronically Signed By: Tran Chew MD\.br\Date and Time Signed: 12/22/24 09:34 EDT Outpatient Surgery Discharge Instructionon 12-22-2024 Outpatient Surgery Discharge Instruction Outpatient Surgery Discharge Instruction [address] [address] Patient Discharge Instructions PERSON INFORMATION [...] Follow up: With: Address: When: Tran Chew [address] [place], [place] [phone] [facility] (1) Comments: Keep scheduled appointment Please call if you need to reschedule Type Location Start Finish [facility] URO Office Visit [facility] 01/08/2025 8:15 AM 01/08/2025 8:30 AM Confirmed [...] for your post-operative appointment in 1-2 weeks [phone] or [phone] JANESSA Camp JAMES E, have received the [...] to serve you. Thank you for choosing [facility] Normal [facility] Prostate Histology ([facility]) on 12-22-2024 PH Method of Extraction Needle Biopsy Normal [facility] Comment on above: Performed By: #### 1 [id number] #### [facility] [address] [place] [address] PH Number of Jars 2 Invalid Interpretation Code [facility] Comment on above: Performed By: #### 1 [id number] #### [facility] [address] [place] [address] PH Specimen 1 L Lat Apx Prost Normal [facility] Comment on above: Performed By: #### 1 [id number] #### [facility] [address] [place] [address] PH Specimen 10 R Lat Bse Prost Normal [facility] Comment on above: Performed By: #### 1 [id number] #### [facility] [address] [place] [address] PH Specimen 11 R Lat Mid Prost Normal [facility] Comment on above: Performed By: #### 1 [id number] #### [facility] [address] [place] [address] PH Specimen 12 R Lat Apx Prost Normal [facility] Comment on above: Performed By: #### 1 [id number] #### [facility] [address] [place] [address] PH Specimen 2 L Lat Mid Prost Normal [facility] Comment on above: Performed By: #### 1 [id number] #### [facility] [address] [place] [address] PH Specimen 3 L Lat Bse Prost Normal [facility] Comment on above: Performed By: #### 1 [id number] #### [facility] [address] [place] [address] PH Specimen 4 L Apx Prostate Normal [facility] Comment on above: Performed By: #### 1 [id number] #### [facility] [address] [place] [address] PH Specimen 5 L Mid Prostate Normal [facility] Comment on above: Performed By: #### 1 [id number] #### [facility] [address] [place] [address] PH Specimen 6 L Base Prostate Normal [facility] Comment on above: Performed By: #### 1 [id number] #### [facility] [address] [place] [address] PH Specimen 7 R Base Prostate Normal [facility] Comment on above: Performed By: #### 1 [id number] #### [facility] [address] [place] [address] PH Specimen 8 R Mid Prostate Normal [facility] Comment on above: Performed By: #### 1 [id number] #### [facility] [address] [place] [address] PH Specimen 9 R Apx Prostate Normal [facility] Comment on above: Performed By: #### 1 [id number] #### [facility] [address] [place] [address] PH Type of Service Technical Only Normal [facility] Comment on above: Performed By: #### 1 [id number] #### [facility] [address] [place] [address] Ambulatory Visit Summaryon 0 12-11-2024 Ambulatory Visit [...] Start day prior to procedure. Pickup at [facility] New tamsulosin (tamsulosin 0.4 mg Cap) 1 Capsules By Mouth At bedtime Refills: 11 Monitor for lightheadedness or dizziness. Take 30 minutes after a meal. Pickup at [facility] Unchanged albuterol (albuterol 0.083% Inh Beba [...] physician if questions or concerns Pharmacy Information [facility]: [address], [place] [id number] [phone] Allergies No Known Medication Allergies Problems Ongoing [...] removing t (more content not included)... Normal [facility] Laboratory - Hematology and Cell countson 12-09-2024 HbA1c (Bld) [Mass fraction] 7.6 % [facility] [employer] No Panel Informationon 12-09 [employer] BASIC METABOLIC PANELon 11-24 Calcium [Mass/Vol] 8.5 mg/dL Low 8.6-10.3 [facility] Comment on above: Performed By: #### 1 0165 #### [facility] [place] [address] Timber Management Technician: Vito Fragoso MD Chloride [Moles/Vol] 105 mmol/L Normal 98-110 [facility] Comment on above: Performed By: #### 1 0165 #### [facility] [place] [address] Timber Management Technician: Vito Fragoso MD CO2 [Moles/Vol] 25 mmol/L Normal 20-32 [facility] Comment on above: Performed By: #### 1 0165 #### [facility] [place] [address] Timber Management Technician: Vito Fragoso MD Creatinine [Mass/Vol] 1.53 mg/dL High 0.70-1.28 [facility] Comment on above: Performed By: #### 1 0165 #### [facility] [place] [address] Timber Management Technician: Vito Fragoso MD GFR/1.73 sq M.predicted among non-blacks MDRD (S/P/Bld) [Vol rate/Area] 47 mL/min/{1.73_m2} Low > OR = 60 [facility] Comment on above: Performed By: #### 1 0165 #### [facility] [place] [address] Timber Management Technician: Vito Fragoso MD Glucose [Mass/Vol] 205 mg/dL High 65-99 [facility] Comment on above: Result Comment: Fasting reference interval For someone without known diabetes, a glucose value >125 mg/dL indicates that they may have diabetes and this should be confirmed with a follow-up test. Performed By: #### 1 0165 #### [facility] [place] [address] Timber Management Technician: Vito Fragoso MD Potassium [Moles/Vol] 5.1 mmol/L Normal 3.5-5.3 [facility] Comment on above: Performed By: #### 1 0165 #### [facility] [place] [address] Timber Management Technician: Vito Fragoso MD Sodium [Moles/Vol] 139 mmol/L Normal 135-146 [facility] Comment on above: Performed By: #### 1 0165 #### [facility] [place] [address] Timber Management Technician: Vito Fragoso MD Urea nitrogen [Mass/Vol] 33 mg/dL High 7-25 [facility] Comment on above: Performed By: #### 1 0165 #### [facility] [place] [address] Timber Management Technician: Vito Fragoso MD Urea nitrogen/Creatinine [Mass ratio] 22 mg/mg Normal 6-22 [facility] Comment on above: Performed By: #### 1 0165 #### [facility] [place] [address] Timber Management Technician: Vito Fragoso MD PSA (FREE AND TOTAL)on [...] 30 93 9 (3)Kvngona et al.:ARMANDO 277: 2679-7350 (1996) (4)Catalona et al.:ARMANDO 279: 1321-1452 (1997) (x)These estimates vary with age, ethnicity, [...] absence of disease. Performed By: #### 3 9058 #### [facility] [address], [address] [place] [phone] Timber Management Technician: Vito Fragoso MD PSA, FREE 4.6 ng/mL Normal [facility] Comment on above: Performed By: #### 3 0068 #### [facility] [address] [place] [address], [address] [place] [phone] Timber Management Technician: Vito Fragoso MD PSA, TOTAL 31.0 ng/mL High < OR = 4.0 [facility] Comment on above: Performed By: #### 3 1348 #### [facility] [address], [address] [place] [address] Timber Management Technician: Vito Fragoso MD Provider Letteron 08-26-2024 Provider Letter Provider Letter August 26, 2024 FREIDA DOUGHERTY [address] [place] [phone] : 1950 Dear Freida, We have been trying to reach you with no success. It is important that you return our call regarding your recent referral upon receiving this letter. Also, at the time of your call, please provide us with your current information. Thank you for your prompt attention to this matter. Sincerely, [facility] [place] [address] [place] [address] Phone ~[phone], option #3 Fax ~[phone] Normal [facility] ALBUMIN, RANDOM URINE W/CREA TININEon 07-28-2024 ALBUMIN, URINE 1.0 mg/dL Normal See Note: [facility] Comment on above: Result Comment: Refe rence Range: Reference Range Not established Performed By: #### 4 96, 7600, 60999, 6517, 6399 #### [facility] [address], [address] [place] [address] Timber Management Technician: Vito Fragoso MD ALBUMIN/CREATININE RATIO, RANDOM URINE [...] category. Performed By: #### 4 96, 7600, 98920, 6517, 6399 #### [facility] [address], [address] [place] [address] Timber Management Technician: Vito Fragoso MD Creatinine (U) [Mass/Vol] 61 mg/dL Normal 20-320 [facility] Comment on above: Performed By: #### 4 96, 7600, 14672, 6517, 6399 #### [facility] [place] [address] Timber Management Technician: Vito Fragoso MD CBC (INCLUDES DIFF/PLT)on Basophils (Bld) [#/Vol] 0.023 10*3/uL Normal 0-200 [facility] Comment on above: Performed By: #### 4 96, 7600, 81368, 6517, 6399 #### [facility] of [address], [address] [place] [address] Timber Management Technician: Vito Fragoso MD Basophils/100 WBC (Bld) 0.4 % Normal [facility] Comment on above: Performed By: #### 4 96, 7600, 50441, 6517, 6399 #### [facility] of [address], [address] [place] [address] Timber Management Technician: Vito Fragoso MD Eosinophils (Bld) [#/Vol] 0.194 10*3/uL Normal 15-500 [facility] Comment on above: Performed By: #### 4 96, 7600, 74871, 6517, 6399 #### [facility] of [address], [address] [place] [address] Timber Management Technician: Vito Fragoso MD Eosinophils/100 WBC (Bld) 3.4 % Normal [facility] Comment on above: Performed By: #### 4 96, 7600, 64903, 6517, 6399 #### [facility] of [place] [address] Timber Management Technician: Vito Fragoso MD Erythrocyte distribution width (RBC) [Ratio] 12.8 % Normal 11.0-15.0 [facility] Comment on above: Performed By: #### 4 96, 7600, [address], 6517, 6399 #### [facility] of [place] [address] Timber Management Technician: Vito Fragoso MD Hematocrit (Bld) [Volume fraction] 34.8 % Low 38.5-50.0 [facility] Comment on above: Performed By: #### 4 96, 7600, 17470, 65, 6399 #### [facility] of [place] [address] Timber Management Technician: Vito Fragoso MD Hemoglobin (Bld) [Mass/Vol] 11.2 g/dL Low 13.2-17.1 [facility] Comment on above: Performed By: #### 4 96, 7600, 17903, 65, 6399 #### [facility] [place] [address] Timber Management Technician: Vito Fragoso MD Lymphocytes (Bld) [#/Vol] 1.34 10*3/uL Normal 850-3900 [facility] Comment on above: Performed By: #### 4 96, 7600, , 6516, 6399 #### [facility] [place] [address] Timber Management Technician: Vito Fragoso MD Lymphocytes/100 WBC (Bld) 23.5 % Normal [facility] Comment on above: Performed By: #### 4 96, 7600, 69871, 65, 6399 #### [facility] [place] [address] Timber Management Technician: Vito Fragoso MD MCH (RBC) [Entitic mass] 32.0 pg Normal 27.0-33.0 [facility] Comment on above: Performed By: #### 4 96, 7600, 05402, 65, 6399 #### [facility] [place] [address] Timber Management Technician: Vito Fragoso MD MCHC (RBC) [Mass/Vol] 32.2 [...] condition. Performed By: #### 4 96, 7600, 42585, 6517, 6399 #### [facility] [place] [address] Timber Management Technician: Vito Fragoso MD MCV (RBC) [Entitic vol] 99.4 fL Normal 80.0-100.0 [facility] Comment on above: Performed By: #### 4 96, 7600, 77300, 17, 6399 #### [facility] [facility] [place] [address] [employer] Management Technician: Vito Fragoso MD Monocytes (Bld) [#/Vol] 0.422 10*3/uL Normal 200-950 [facility] Comment on above: Performed By: #### 4 96, 7600, 24632, 17, 6399 #### [facility] [place] [address] [employer] Management Technician: Vito Fragoso MD Monocytes/100 WBC (Bld) 7.4 % Normal [facility] Comment on above: Performed By: #### 4 96, 7600, 13475, 6517, 6399 #### [facility] [place] [address] [employer] Management Technician: Vito Fragoso MD Neutrophils (Bld) [#/Vol] 3.722 10*3/uL Normal 8071-5250 [facility] Comment on above: Performed By: #### 4 96, 7600, 53366, 6517, 6399 #### [facility] [place] [address] [employer] Management Technician: Vito Fragoso MD Neutrophils/100 WBC (Bld) 65.3 % Normal [facility] Comment on above: Performed By: #### 4 96, 7600, 49751, 6517, 6399 #### [facility] [place] [address] [employer] Technician: Vito Fragoso MD Platelet mean volume (Bld) [Entitic vol] 10.5 fL Normal 7.5-12.5 [facility] Comment on above: Performed By: #### 4 96, 7600, 77605, 6517, 6399 #### [facility] [place] [address] [employer] Technician: Vito Fragoso MD Platelets (Bld) [#/Vol] 201 10*3/uL Normal 140-400 [facility] Comment on above: Performed By: #### 4 96, 7600, 77815, 6517, 6399 #### [facility] [place] [address] [employer] Technician: Vito Fragoso MD RBC (Bld) [#/Vol] 3.50 10*6/uL Low 4.20-5.80 [facility] Comment on above: Performed By: #### 4 96, 7600, 57189, 6517, 6399 #### [facility] [place] [address] [employer] Technician: Vito Fragoso MD WBC (Bld) [#/Vol] 5.7 10*3/uL Normal 3.8-10.8 [facility] Comment on above: Performed By: #### 4 96, 7600, 82052, 6517, 6399 #### [facility] [place] [address] [employer] Management Technician: Vito Fragoso MD [facility] Albumin [Mass/Vol] 4.0 g/dL Normal 3.6-5.1 [facility] Comment on above: Performed By: #### 4 96, 7600, 83884, 6517, 6399 #### [facility] [place] [address] [employer] Technician: Vito Fragoso MD Albumin/Globulin [Mass ratio] 1.8 {ratio} Normal 1.0-2.5 [facility] Comment on above: Performed By: #### 4 96, 7600, 39654, 6517, 6399 #### [facility] of [address] [place] [address] [employer] Management Technician: Vito Fragoso MD ALP [Catalytic activity/Vol] 69 U/L Normal 35-144 [facility] Comment on above: Performed By: #### 4 96, 7600, 26275, 6517, 6399 #### [facility] of [address], [address] [place] [address] [employer] Management Technician: Vito Fragoso MD ALT [Catalytic activity/Vol] 9 U/L Normal 9-46 [facility] Comment on above: Performed By: #### 4 96, 7600, 29716, 6517, 6399 #### [facility] of [address], [address] [place] [address] [employer] Management Technician: Vito Fragoso MD AST [Catalytic activity/Vol] 14 U/L Normal 10-35 [facility] Comment on above: Performed By: #### 4 96, 7600, 28113, 6517, 6399 #### [facility] of [address], [address] [place] [address] [employer] Management Technician: Vito Fragoso MD Bilirubin [Mass/Vol] 0.5 mg/dL Normal 0.2-1.2 [facility] Comment on above: Performed By: #### 4 96, 7600, 15933, 6517, 6399 #### [facility] of [address], [address] [place] [address] [employer] Management Technician: Vito Fragoso MD Calcium [Mass/Vol] 9.1 mg/dL Normal 8.6-10.3 [facility] Comment on above: Performed By: #### 4 96, 7600, 29436, 6517, 6399 #### [facility] [place] [address] [employer] Management Technician: Vito Fragoso MD Chloride [Moles/Vol] 108 mmol/L Normal 98-110 [facility] Comment on above: Performed By: #### 4 96, 7600, 54636, 6517, 6399 #### [facility] of [address], [address] [place] [address] [employer] Management Technician: Vito Fragoso MD CO2 [Moles/Vol] 24 mmol/L Normal 20-32 [facility] Comment on above: Performed By: #### 4 96, 7600, 03367, 6517, 6399 #### [facility] [place] [address] [employer] Management Technician: Vito Fragoso MD Creatinine [Mass/Vol] 1.33 mg/dL High 0.70-1.28 [facility] Comment on above: Performed By: #### 4 96, 7600, 46791, 6517, 6399 #### [facility] [place] [address] [employer] Technician: Vito Fragoso MD GFR/1.73 sq M.predicted among non-blacks MDRD (S/P/Bld) [Vol rate/Area] 56 mL/min/{1.73_m2} Low > OR = 60 [facility] Comment on above: Performed By: #### 4 96, 7600, 40560, 6517, 6399 #### [facility] [place] [address] [employer] Technician: Vito Fragoso MD Globulin (S) [Mass/Vol] 2.2 g/dL Normal 1.9-3.7 [facility] Comment on above: Performed By: #### 4 96, 7600, 77074, 6517, 6399 #### [facility] [place] [address] [employer] Technician: Vito Fragoso MD Glucose [Mass/Vol] 73 mg/dL Normal 65-99 [facility] Comment on above: Result Comment: Fasting reference interval Performed By: #### 4 96, 7600, 25561, 6517, 6399 #### [facility] [place] [address] [employer] Technician: Vito Fragoso MD Potassium [Moles/Vol] 5.3 mmol/L Normal 3.5-5.3 [facility] Comment on above: Performed By: #### 4 96, 7600, 47022, 6517, 6399 #### [facility] [place] [address] [employer] Management Technician: Vito Fragoso MD Protein [Mass/Vol] 6.2 g/dL Normal 6.1-8.1 [facility] Comment on above: Performed By: #### 4 96, 7600, 15902, 6517, 6399 #### [facility] [place] [address] [employer] Management Technician: Vito Fragoso MD Sodium [Moles/Vol] 140 mmol/L Normal 135-146 [facility] Comment on above: Performed By: #### 4 96, 7600, 52648, 6517, 6399 #### [facility] [place] [address] [employer] Management Technician: Vito Fragoso MD Urea nitrogen [Mass/Vol] 36 mg/dL High 7-25 [facility] Comment on above: Performed By: #### 4 96, 7600, 71042, 6517, 6399 #### [facility] [place] [address] [employer] Management Technician: Vito Fragoso MD Urea nitrogen/Creatinine [Mass ratio] 27 mg/mg High 6-22 [facility] Comment on above: Performed By: #### 4 96, 7600, 31025, 6517, 6399 #### [facility] [place] [address] [employer] Management Technician: Vito Fragoso MD HEMOGLOBIN A1con 07-28-2024 HbA1c [...] children. Performed By: #### 4 96, 7600, 48877, 6517, 6399 #### [facility] [address], [address] [place] [address] [employer] Management Technician: Vito Fragoso MD LIPID PANEL, [facility] 050 Cholesterol [Mass/Vol] 83 mg/dL Normal <200 [facility] Comment on above: Order Comment: FASTI NG:YES FASTING: YES Performed By: #### 4 96, 7600, 64095, 6517, 6399 #### [facility] [address], [address] [place] [address] [employer] Management Technician: Vito Fragoso MD Cholesterol in HDL [Mass/Vol] 29 mg/dL Low > OR = 40 [facility] Comment on above: Order Comment: FASTI NG:YES FASTING: YES Performed By: #### 4 96, 7600, 91047, 6517, 6399 #### [facility] [address], [address] [place] [address] [employer] Management Technician: Vito Fragoso MD Cholesterol in LDL [Mass/Vol] [...] LDL-C. Len CAMPA et al. ARMANDO. 2013;310(19): 5589-7823 ([email or web address]) Performed By: #### 4 96, 7600, 05218, 6517, 6399 #### [facility] [address], [address] [place] [address] [employer] Management Technician: Vito Fragoso MD Cholesterol.total/C holesterol in HDL [Mass ratio] 2.9 {ratio} Normal <5.0 [facility] Comment on above: Order Comment: FASTI NG:YES FASTING: YES Performed By: #### 4 96, 7600, 40798, 6517, 6399 #### [facility] [address], [address] [place] [address] [employer] Management Technician: Vito Fragoso MD NON HDL CHOLESTEROL 54 mg/dL (calc) Normal <130 [facility] Comment on above: Order Comment: FASTI NG:YES FASTING: YES Result Comment: For patients with diabetes plus 1 major ASCVD risk factor, treating to a non-HDL-C goal of <100 mg/dL (LDL-C of <70 mg/dL) is considered a therapeutic option. Performed By: #### 4 96, 7600, 02328, 6517, 6399 #### [facility] [place] [address] [employer] Technician: Vito Fragoso MD Triglyceride [Mass/Vol] 125 mg/dL Normal <150 [facility] Comment on above: Order Comment: FASTI NG:YES FASTING: YES Performed By: #### 4 96, 7600, 29028, 6517, 6399 #### [facility] [place] [address] [employer] Technician: Vito Frgaoso MD PSA, TOTALon 07-28-2024 PSA, TOTAL 21.90 ng/mL High < OR = 4.00 [facility] Comment on above: Result Comment: The total PSA value from this assay system is standardized against the WHO standard. The test result will be approximately 20% lower when compared to the equimolar-standardized total PSA (Evaristo [place]). Comparison of serial PSA results should be interpreted with this fact in mind. This test was performed using the Siemens chemiluminescent method. Values obtained from different assay methods cannot be used interchangeably. PSA levels, regardless of value, should not be interpreted as absolute evidence of the presence or absence of disease. Performed By: #### 4 96, 7600, 27957, 6517, 6399 #### [facility] [place] [address] [employer] Technician: Vito Fragoso MD Laboratory - Hematology and Cell countson 02-05-2024 HbA1c (Bld) [Mass fraction] 6.6 % [facility] No Panel Informationon 02-04 Interpretation and review of laboratory results Abnormal [facility]22 Natriuretic peptide B (Bld) [Mass/Vol] 752.0 pg/mL Normal <=900.0 [facility] Comment on above: Performed By: #### C MREP #### [facility] [address] [place] [address] Dr. Jh Boudreaux CBC AUTO DIFFon 03-24-2022 BASO # 0.1 103/ul Normal 0.0-0.1 [facility] Comment on above: Performed By: #### C BC #### [facility] [address] [place] [address] Dr. Jh Boudreaux Basophils/100 WBC (Bld) 0.6 % Normal 0.2-2.0 [facility] Comment on above: Performed By: #### C BC #### [facility] [address] [place] [address] Dr. Jh Boudreaux EO # 0.4 103/ul Normal 0.0-0.7 [facility] Comment on above: Performed By: #### C BC #### [facility] [address] [place] [address] Dr. Jh Boudreaux Eosinophils/100 WBC (Bld) 4.5 % Normal 0.9-7.0 [facility] Comment on above: Performed By: #### C BC #### [facility] [address] [place] [address] Dr. Jh Boudreaux Erythrocyte distribution width (RBC) [Ratio] 12.5 % Normal 11.0-15.0 [facility] Comment on above: Performed By: #### C BC #### [facility] [address] [place] [address] Dr. Jh Boudreaux Hematocrit (Bld) [Volume fraction] 38.9 % Critically low 42.0-54.0 [facility] Comment on above: Performed By: #### C BC #### [facility] [address] [place] [address] Dr. Jh Boudreaux Hemoglobin (Bld) [Mass/Vol] 13.3 g/dL Critically low 14.0-18.0 [facility] Comment on above: Performed By: #### C BC #### [facility] [address] [place] [address] Dr. Jh Boudreaux IG # 0.03 10e3/ul Normal 0.00-0.03 [facility] Comment on above: Performed By: #### C BC #### [facility] [address] [place] [address] Dr. Jh Boudreaux IG % 0.4 % Normal 0.0-0.5 [facility] Comment on above: Performed By: #### C BC #### [facility] [address] [place] [address] Dr. Jh Boudreaux LYMPH # 1.4 103/ul Normal 1.2-3.8 [facility] Comment on above: Performed By: #### C BC #### [facility] [address] [place] [address] Dr. Jh Boudreaux Lymphocytes/100 WBC (Bld) 16.9 % Critically low 20.5-60.0 [facility] Comment on above: Performed By: #### C BC #### [facility] [address] [place] [address] Dr. Jh Boudreaux MANUAL DIFF REQ NO Normal [facility] Comment on above: Performed By: #### C BC #### [facility] [address] [place] [address] Dr. Jh Boudreaux MCH (RBC) [Entitic mass] 29.6 pg Normal 25.9-34.0 [facility] Comment on above: Performed By: #### C BC #### [facility] [address] [place] [address] Dr. Jh Boudreaux MCHC (RBC) [Mass/Vol] 34.2 g/dL Normal 29.9-35.2 [facility] Comment on above: Performed By: #### C BC #### [facility] [address] [place] [address] Dr. Jh Boudreaux MCV (RBC) [Entitic vol] 86.6 fL Normal 80.0-94.0 [facility] Comment on above: Performed By: #### C BC #### [facility] [address] [place] [address] Dr. Jh Boudreaux MONO # 0.8 103/ul Normal 0.3-0.8 [facility] Comment on above: Performed By: #### C BC #### [facility] [address] [place] [address] Dr. Jh Boudreaux Monocytes/100 WBC (Bld) 10.2 % Normal 1.7-12.0 [facility] Comment on above: Performed By: #### C BC #### [facility] [address] [place] [address] Dr. Jh Boudreaux NEUT # 5.6 103/ul Normal 1.4-6.5 [facility] Comment on above: Performed By: #### C BC #### [facility] [address] [place] [address] Dr. Jh Boudreaux Neutrophils/100 WBC (Bld) 67.4 % Normal 43.0-75.0 [facility] Comment on above: Performed By: #### C BC #### [facility] [address] [place] [address] Dr. Jh Boudreaux Platelet mean volume (Bld) [Entitic vol] 9.9 fL Normal 9.5-13.5 [facility] Comment on above: Performed By: #### C BC #### [facility] [address] [place] [address] Dr. Jh Boudreaux PLT 182 103/ul Normal 150-450 [facility] Comment on above: Performed By: #### C BC #### [facility] [address] [place], [place] [id number] Dr. Jh Boudreaux RBC 4.49 106/ul Critically low 4.70-6.10 [facility] Comment on above: Performed By: #### C BC #### [facility] [address] [place] [address] Dr. Jh Boudreaux WBC 8.3 103/ul Normal 4.0-11.0 [facility] Comment on above: Performed By: #### C BC #### [facility] [address] [place] [address] [address] Jh Boudreaux [facility] SARS-CoV-2 (COVID-19) RNA PETER+probe Ql (Unsp spec) Not detected Normal NOT DETECTED [facility] Comment on above: Result Comment: When [...] for this test is supported by the Senior Electronics Engineer of Health and Human Service's declaration that [...] used). Performed By: #### C VDTB #### [facility] [address] [place] [address] [address] Jh Boudreaux INFLUENZA A AND B AGon 03-24 [facility] SEE BELOW Normal [facility] Comment on above: Result Comment: Nega tive for Flu A protein angiten. Infection due to Flu A cannot be ruled out. Flu A angiten in the sample may be below the detection limit of the test. Performed By: #### I NFLUAB #### [facility] [address] [place] [address] [address] Jh Boudreaux INFLUBNEG SEE BELOW Normal [facility] Comment on above: Result Comment: Nega tive for Flu B protein antigen. Infection due to Flu B cannot be ruled out. Flu B antigen in the sample may be below the detection limit of the test. Performed By: #### I NFLUAB #### [facility] [address] [place] [address] Dr. Jh Boudreaux INFLUENZA A AG Negative Normal NEGATIVE SEE COMMENT [facility] Comment on above: Performed By: #### I NFLUAB #### [facility] [address] [place] [address] [address] hJ Boudreaux INFLUENZA B AG Negative Normal NEGATIVE SEE COMMENT [facility] Comment on above: Performed By: #### I NFLUAB #### [facility] [address] [place] [address] [address] Jh Boudreaux POINT OF CARE GLUCOSEon 02-25 Glucose [Mass/Vol] 215 mg/dL Critically high 74-106 T [facility] Comment on above: Performed By: #### B DENISE, HSTROPN #### [facility] [address] [place] [address] Dr. Jh Boudreaux PROF CHEM 8 (BAS METB)on Anion gap [Moles/Vol] 12.2 mmol/L Normal [facility] Comment on above: Performed By: #### B MP, HSTROPN #### [facility] [address] [place] [address] Dr. Jh Boudreaux Calcium [Mass/Vol] 8.9 mg/dL Normal 8.5-10.1 [facility] Comment on above: Performed By: #### B DENISE, HSTROPN #### [facility] [address] [place] [address] Dr. Jh Boudreaux Chloride [Moles/Vol] 98 mmol/L Normal 98-107 [facility] Comment on above: Performed By: #### B MP, HSTROPN #### [facility] [address] [place] [address] Dr. Jh Boudreaux CO2 [Moles/Vol] 27.9 mmol/L Normal 21.0-32.0 [facility] Comment on above: Performed By: #### B MP, HSTROPN #### [facility] [address] [place] [address] Dr. Jh Boudreaux Creatinine [Mass/Vol] 1.24 mg/dL Normal 0.70-1.30 [facility] Comment on above: Performed By: #### B MP, HSTROPN #### [facility] [address] [place] [address] [address] Jh Boudreaux EGFR-AF KYRGYZ >60 Normal >=60 [facility] Comment on above: Performed By: #### B MP, HSTROPN #### [facility] [address] [place] [address] [address] Jh Boudreaux EGFR-NON AF KYRGYZ 57 mL/min/1.73m2 Critically low >=60 [facility] Comment on above: Performed By: #### B DENISE, HSTROPN #### [facility] [address] [place] [address] Dr. Jh Boudreaux Glucose [Mass/Vol] 62 mg/dL Critically low 74-106 [facility] Comment on above: Performed By: #### B DENISE, HSTROPN #### [facility] [address] [place] [address] Dr. Jh Boudreaux Potassium [Moles/Vol] 5.1 mmol/L Normal 3.5-5.1 [facility] Comment on above: Performed By: #### B DENISE, HSTROPN #### [facility] [address] [place] [address] Dr. Jh Boudreaux Sodium [Moles/Vol] 133 mmol/L Critically low 136-145 [facility] Comment on above: Performed By: #### B DENISE, HSTROPN #### [facility] [address] [place] [address] Dr. Jh Boudreaux Urea nitrogen [Mass/Vol] 23.0 mg/dL Critically high 7.0-18.0 [facility] Comment on above: Performed By: #### B DENISE, HSTROPN #### [facility] [address] [place] [address] Dr. Jh Boudreaux Urea nitrogen/Creatinine [Mass ratio] 18.5 mg/mg Normal [facility] Comment on above: Performed By: #### B DENISE, HSTROPN #### [facility] [address] [place] [address] Dr. Jh Boudreaux TROPONIN, HIGH SENSITIVITYon 03-24-2022 HSTROP 11.5 pg/mL Normal 4.0-76.1 [facility] Comment on above: Result Comment: CUT- OFF POINTS HAVE BEEN ESTABLISHED BASED ON THE FOURTH UNIVERSAL DEFINITIONS OF MYOCARDIAL INFARCTION. THE UPPER REFERENCE LIMIT (URL) OF TROPONIN, DEFINED THE 99TH PERCENTILE OF cTnI DISTRIBUTION IN A REFERENCE POPULATION, HAS BEEN CONFIRMED THE DECISION THRESHOLD FOR [place] DIAGNOSIS. Performed By: #### B MP, HSTROPN #### [facility] [address] [place] [address] [address] Jh Boudreaux XR CHEST 1 Von [...] IWONA WARNER Date: 2022-03-24 18:37 Normal [facility] CARDIAC ADITHYA 3-6on 2 CK [Catalytic activity/Vol] 32 U/L Critically low 55-170 [facility] Comment on above: Performed By: #### C MREP #### [facility] [address] [place] [address] [address] Jh Boudreaux CK.MB [Mass/Vol] 1.72 ng/mL Normal <=2.37 [facility] Comment on above: Performed By: #### C MREP #### [facility] [address] [place] [address] [address] Jh Boudreaux HSTROP 69.6 pg/mL Critically high 4.0-42.2 [facility] Comment on above: Result Comment: CUT- OFF POINTS HAVE BEEN ESTABLISHED BASED ON THE FOURTH UNIVERSAL DEFINITIONS OF MYOCARDIAL INFARCTION. THE UPPER REFERENCE LIMIT (URL) OF TROPONIN, DEFINED THE 99TH PERCENTILE OF cTnI DISTRIBUTION IN A REFERENCE POPULATION, HAS BEEN CONFIRMED THE DECISION THRESHOLD FOR [place] DIAGNOSIS. Performed By: #### C MREP #### [facility] [address] [place] [address] [address] Jh Boudreaux CK [Catalytic activity/Vol] 29 U/L Critically low 55-170 [facility] Comment on above: Performed By: #### C MREP #### [facility] [address] [place] [address] [address] Jh Boudreaux CK.MB [Mass/Vol] 1.57 ng/mL Normal <=2.37 [facility] Comment on above: Performed By: #### C MREP #### [facility] [address] [place] [address] [address] Jh Boudreaux HSTROP 39.9 pg/mL Normal 4.0-42.2 [facility] Comment on above: Result Comment: CUT- OFF POINTS HAVE BEEN ESTABLISHED BASED ON THE FOURTH UNIVERSAL DEFINITIONS OF MYOCARDIAL INFARCTION. THE UPPER REFERENCE LIMIT (URL) OF TROPONIN, DEFINED THE 99TH PERCENTILE OF cTnI DISTRIBUTION IN A REFERENCE POPULATION, HAS BEEN CONFIRMED THE DECISION THRESHOLD FOR [place] DIAGNOSIS. Performed By: #### C MREP #### [facility] [address] [place] [address] Dr. Jh Boudreaux CARDIAC ADITHYA ADMITon 022 CK [Catalytic activity/Vol] 32 U/L Critically low 55-170 [facility] Comment on above: Performed By: #### B MP, HSTROPN #### [facility] [address] [place] [address] Dr. Jh Boudreaux CK.MB [Mass/Vol] 1.15 ng/mL Normal <=2.37 [facility] Comment on above: Performed By: #### B MP, HSTROPN #### [facility] [address] [place] [address] Dr. Jh Boudreaux HSTROP 11.9 pg/mL Normal 4.0-42.2 [facility] Comment on above: Result Comment: CUT- OFF POINTS HAVE BEEN ESTABLISHED BASED ON THE FOURTH UNIVERSAL DEFINITIONS OF MYOCARDIAL INFARCTION. THE UPPER REFERENCE LIMIT (URL) OF TROPONIN, DEFINED THE 99TH PERCENTILE OF cTnI DISTRIBUTION IN A REFERENCE POPULATION, HAS BEEN CONFIRMED THE DECISION THRESHOLD FOR [place] DIAGNOSIS. Performed By: #### B DENISE HSTROPN #### [facility] [address] [address] [address] Jh Boudreaux GENA 25.0 ng/mL Normal <=121.0 [facility] Comment on above: Performed By: #### B DENISE HSTROPN #### [facility] [address] [address] [address] Jh Boudreaux CBC AUTO DIFFon 05-19-2021 BASO # 0.0 103/ul Normal 0.0-0.1 [facility] Comment on above: Performed By: #### C BC #### [facility] [address] [address] [address] Jh Boudreaux Basophils/100 WBC (Bld) 0.3 % Normal 0.2-2.0 [facility] Comment on above: Performed By: #### C BC #### [facility] [address] [place] [address] Dr. Jh Boudreaux EO # 0.2 103/ul Normal 0.0-0.7 [facility] Comment on above: Performed By: #### C BC #### [facility] [address] [place] [address] Dr. Jh Boudreaux Eosinophils/100 WBC (Bld) 2.0 % Normal 0.9-7.0 [facility] Comment on above: Performed By: #### C BC #### [facility] [address] [address] [address] Jh Boudreaux Erythrocyte distribution width (RBC) [Ratio] 12.2 % Normal 11.0-15.0 [facility] Comment on above: Performed By: #### C BC #### [facility] [address] [place] [address] Dr. Jh Boudreaux Hematocrit (Bld) [Volume fraction] 33.7 % Critically low 42.0-54.0 [facility] Comment on above: Performed By: #### C BC #### [facility] [address] [place] [address] Dr. Jh Boudreaux Hemoglobin (Bld) [Mass/Vol] 11.8 g/dL Critically low 14.0-18.0 [facility] Comment on above: Performed By: #### C BC #### [facility] [address] [address] [address] Jh Boudreaux IG # 0.04 10e3/ul Critically high 0.00-0.03 [facility] Comment on above: Performed By: #### C BC #### [facility] [address] [address] [address] Jh Boudreaux IG % 0.5 % Normal 0.0-0.5 [facility] Comment on above: Performed By: #### C BC #### [facility] [address] [place] [address] Dr. Jh Boudreaux LYMPH # 1.2 103/ul Normal 1.2-3.8 [facility] Comment on above: Performed By: #### C BC #### [facility] [address] [place] [address] Dr. Jh Boudreaux Lymphocytes/100 WBC (Bld) 15.3 % Critically low 20.5-60.0 [facility] Comment on above: Performed By: #### C BC #### [facility] [address] [place] [address] Dr. Jh Boudreaux MANUAL DIFF REQ NO Normal [facility] [place] Comment on above: Performed By: #### C BC #### [facility] [address] [place] [address] Dr. Jh Boudreaux MCH (RBC) [Entitic mass] 31.6 pg Normal 25.9-34.0 [facility] Comment on above: Performed By: #### C BC #### [facility] [address] [place] [address] Dr. Jh Boudreaux MCHC (RBC) [Mass/Vol] 35.0 g/dL Normal 29.9-35.2 [facility] Comment on above: Performed By: #### C BC #### [facility] [address] [place] [address] Dr. Jh Boudreaux MCV (RBC) [Entitic vol] 90.1 fL Normal 80.0-94.0 [facility] Comment on above: Performed By: #### C BC #### [facility] [address] [address] [address] Jh Boudreaux MONO # 0.5 103/ul Normal 0.3-0.8 [facility] Comment on above: Performed By: #### C BC #### [facility] [address] [address] [address] Jh Boudreaux Monocytes/100 WBC (Bld) 6.3 % Normal 1.7-12.0 [facility] Comment on above: Performed By: #### C BC #### [facility] [address] [address] [address] Jh Boudreaux NEUT # 5.9 103/ul Normal 1.4-6.5 [facility] Comment on above: Performed By: #### C BC #### [facility] [address] [place] [address] Dr. Jh Boudreaux Neutrophils/100 WBC (Bld) 75.6 % Critically high 43.0-75.0 [facility] Comment on above: Performed By: #### C BC #### [facility] [address] [place] [address] Dr. Jh Boudreaux Platelet mean volume (Bld) [Entitic vol] 9.0 fL Critically low 9.5-13.5 [facility] Comment on above: Performed By: #### C BC #### [facility] [address] [place] [address] Dr. Jh Boudreaux PLT 164 103/ul Normal 150-450 [facility] Comment on above: Performed By: #### C BC #### [facility] [address] [address] [address] Jh Boudreaux RBC 3.74 106/ul Critically low 4.70-6.10 [facility] Comment on above: Performed By: #### C BC #### [facility] [address] [address] [address] Jh Boudreaux WBC 7.8 103/ul Normal 4.0-11.0 [facility] Comment on above: Performed By: #### C BC #### [facility] [address] [address] HEAD WO CONon [...] DELVIS LUND Date: 2021-05-19 04:40 Normal [facility] 04-27 SARS-CoV-2 (COVID-19) RNA PETER+probe Ql (Unsp spec) Not detected Normal NOT DETECTED [facility] Comment on above: Result Comment: When diagnostic testing is negative, the possibility of a false negative should be considered in the context of a patient's recent exposures and the presence of clinical signs and symptoms consistent with SARS-CoV-2. This test is not yet approved or cleared by the [place] Food and Drug Administration (FDA). This test was developed by [employer], [place], [place]. The performance characteristics of this test were validated by [facility]. The results are not intended to be used as the sole means for clinical diagnosis or patient management decisions. [facility] is authorized under Clinical Laboratory Improvement [...] for this test is supported by the [employer] of Health and Human Service's declaration that [...] Performed By: #### B DENISE, HORACIO #### [facility] [address] [address] [address] Jh Boudreaux MRI BRAIN WO CONon [...] AUNDREA ADAM Date: 2021-05-19 12:42 Normal [facility] POINT OF CARE GLUCOSEon 04-27 Glucose [Mass/Vol] 76 mg/dL Normal 74-106 [facility] Comment on above: Performed By: #### B DENISE, HSTROPN #### [facility] [address] [place] [address] Dr. Jh Boudreaux Glucose [Mass/Vol] 217 mg/dL Critically high 74-106 T [facility] Comment on above: Performed By: #### C MREP #### [facility] [address] [place] [address] Dr. Jh Boudreaux PROF CHEM 8 (BAS METB)on Anion gap [Moles/Vol] 11.9 mmol/L Normal [facility] Comment on above: Performed By: #### B DENISE, HSTROPN #### [facility] [address] [place] [address] Dr. Jh Boudreaux Calcium [Mass/Vol] 8.7 mg/dL Normal 8.4-10.2 [facility] Comment on above: Performed By: #### B DENISE, HSTROPN #### [facility] [address] [place] [address] Dr. Jh Boudreaux Chloride [Moles/Vol] 101 mmol/L Normal 98-107 [facility] Comment on above: Performed By: #### B DENISE, HSTROPN #### [facility] [address] [place] [address] Dr. Jh Boudreaux CO2 [Moles/Vol] 25.4 mmol/L Normal 22.0-30.0 [facility] Comment on above: Performed By: #### B DENISE, HSTROPN #### [facility] [address] [place] [address] Dr. Jh Boudreaux Creatinine [Mass/Vol] 1.11 mg/dL Normal 0.66-1.25 [facility] Comment on above: Performed By: #### B DENISE, HSTROPN #### [facility] [address] [address] [address] Jh Boudreaux EGFR-AF KYRGYZ >60 Normal >=60 [facility] Comment on above: Performed By: #### B DENISE, HSTROPN #### [facility] [address] [address] [address] Jh Boudreaux EGFR-NON AF KYRGYZ >60 Normal >=60 [facility] Comment on above: Performed By: #### B DENISE, HSTROPN #### [facility] [address] [address] [address] Jh Boudreaux Glucose [Mass/Vol] 214 mg/dL Critically high 74-106 T [facility] Comment on above: Performed By: #### B DENISE, HSTROPN #### [facility] [address] [address] [address] Jh Boudreaux Potassium [Moles/Vol] 4.3 mmol/L Normal 3.4-5.0 [facility] Comment on above: Performed By: #### B DENISE, HSTROPN #### [facility] [address] [address] [address] Jh Boudreaux Sodium [Moles/Vol] 134 mmol/L Critically low 137-145 [facility] Comment on above: Performed By: #### B DENISE, HSTROPN #### [facility] [address] [address] [address] Jh Boudreaux Urea nitrogen [Mass/Vol] 23.0 mg/dL Critically high 9.0-20.0 [facility] Comment on above: Performed By: #### B DENISE, HSTROPN #### [facility] [address] [address] [address] Jh Boudreaux Urea nitrogen/Creatinine [Mass ratio] 20.7 mg/mg Normal [facility] Comment on above: Performed By: #### B DENISE, HSTROPN #### [facility] [address] [address] [address] Jh Boudreaux XR FOREIGN BODY EYEon 2021 XR FOREIGN BODY EYE EXAMINATION: XR FOREIGN BODY EYE HISTORY: vertigo COMPARISON: No relevant comparison available. FINDINGS: ORBITS: Negative for a metallic foreign body. OTHER: Negative. IMPRESSION: 1. No metallic foreign body within the orbits. Electronically authenticated by: OSMANY MESSINA Date: 2021-05-19 11:55 Normal [facility] XR CHEST 1 Von 05-04-2021 XR CHEST 1 V This study was read during a downtime in the [employer] PACS system. The actual time dictated and [...] OSMANY MESSINA Date: 2021-05-04 16:13 Normal [facility] BNPon 05-03-2021 Natriuretic peptide B (Bld) [Mass/Vol] 1093.0 pg/mL Critically high <=900.0 [facility] Comment on above: Performed By: #### C MP, CMADM, BNP #### [facility] [address] [address] [address] Jh Boudreaux CARDIAC ADITHYA ADMITon 022 CK [Catalytic activity/Vol] 42 U/L Critically low 55-170 [facility] Comment on above: Performed By: #### C MP, CMADM, BNP #### [facility] [address] [address] [address] Jh Boudreaux CK.MB [Mass/Vol] 1.12 ng/mL Normal <=2.37 [facility] Comment on above: Performed By: #### C MP, CMADM, BNP #### [facility] [address] [place] [address] Dr. Jh Boudreaux HSTROP 13.3 pg/mL Normal 4.0-42.2 [facility] Comment on above: Result Comment: CUT- OFF POINTS HAVE BEEN ESTABLISHED BASED ON THE FOURTH UNIVERSAL DEFINITIONS OF MYOCARDIAL INFARCTION. THE UPPER REFERENCE LIMIT (URL) OF TROPONIN, DEFINED THE 99TH PERCENTILE OF cTnI DISTRIBUTION IN A REFERENCE POPULATION, HAS BEEN CONFIRMED THE DECISION THRESHOLD FOR [place] DIAGNOSIS. Performed By: #### C MP, CMADM, BNP #### [facility] [address] [place] [address] Dr. Jh Boudreaux GENA 38.0 ng/mL Normal <=121.0 [facility] Comment on above: Performed By: #### C MP, CMADM, BNP #### [facility] [address] [place] [address] Dr. Jh Boudreaux CBC AUTO DIFFon 05-03-2021 BASO # 0.0 103/ul Normal 0.0-0.1 [facility] Comment on above: Performed By: #### C MREP #### [facility] [address] [place] [address] Dr. Jh Boudreaux Basophils/100 WBC (Bld) 0.2 % Normal 0.2-2.0 [facility] Comment on above: Performed By: #### C MREP #### [facility] [address] [place] [address] Dr. Jh Boudreaux EO # 0.2 103/ul Normal 0.0-0.7 [facility] Comment on above: Performed By: #### C MREP #### [facility] [address] [place] [address] Dr. Jh Boudreaux Eosinophils/100 WBC (Bld) 2.0 % Normal 0.9-7.0 [facility] Comment on above: Performed By: #### C MREP #### [facility] [address] [place] [address] Dr. Jh Boudreaux Erythrocyte distribution width (RBC) [Ratio] 12.4 % Normal 11.0-15.0 [facility] Comment on above: Performed By: #### C MREP #### [facility] [address] [place] [address] Dr. Jh Boudreaux Hematocrit (Bld) [Volume fraction] 37.6 % Critically low 42.0-54.0 [facility] Comment on above: Performed By: #### C MREP #### [facility] [address] [place] [address] Dr. Jh Boudreaux Hemoglobin (Bld) [Mass/Vol] 13.0 g/dL Critically low 14.0-18.0 [facility] Comment on above: Performed By: #### C MREP #### [facility] [address] [place] [address] Dr. Jh Boudreaux IG # 0.04 10e3/ul Critically high 0.00-0.03 [facility] Comment on above: Performed By: #### C MREP #### [facility] [address] [place] [address] Dr. Jh Boudreaux IG % 0.5 % Normal 0.0-0.5 [facility] Comment on above: Performed By: #### C MREP #### [facility] [address] [place] [address] Dr. Jh Boudreaux LYMPH # 1.3 103/ul Normal 1.2-3.8 [facility] Comment on above: Performed By: #### C MREP #### [facility] [address] [place] [address] Dr. Jh Boudreaux Lymphocytes/100 WBC (Bld) 14.5 % Critically low 20.5-60.0 [facility] Comment on above: Performed By: #### C MREP #### [facility] [address] [place] [address] Dr. Jh Boudreaux MANUAL DIFF REQ NO Normal [facility] Comment on above: Performed By: #### C MREP #### [facility] [address] [place] [address] Dr. Jh Boudreaux MCH (RBC) [Entitic mass] 30.8 pg Normal 25.9-34.0 [facility] Comment on above: Performed By: #### C MREP #### [facility] [address] [place] [address] Dr. Jh Boudreaux MCHC (RBC) [Mass/Vol] 34.6 g/dL Normal 29.9-35.2 [facility] Comment on above: Performed By: #### C MREP #### [facility] [address] [place] [address] Dr. Jh Boudreaux MCV (RBC) [Entitic vol] 89.1 fL Normal 80.0-94.0 [facility] Comment on above: Performed By: #### C MREP #### [facility] [address] [place] [address] Dr. Jh Boudreaux MONO # 0.7 103/ul Normal 0.3-0.8 [facility] Comment on above: Performed By: #### C MREP #### [facility] [address] [place] [address] Dr. Jh Boudreaux Monocytes/100 WBC (Bld) 7.8 % Normal 1.7-12.0 [facility] Comment on above: Performed By: #### C MREP #### [facility] [address] [place] [address] Dr. Jh Boudreaux NEUT # 6.5 103/ul Normal 1.4-6.5 [facility] Comment on above: Performed By: #### C MREP #### [facility] [address] [place] [address] Dr. Jh Boudreaux Neutrophils/100 WBC (Bld) 75.0 % Normal 43.0-75.0 [facility] Comment on above: Performed By: #### C MREP #### [facility] [address] [place] [address] Dr. Jh Boudreaux Platelet mean volume (Bld) [Entitic vol] 9.5 fL Normal 9.5-13.5 [facility] Comment on above: Performed By: #### C MREP #### [facility] [address] [place] [address] Dr. Jh Boudreaux PLT 240 103/ul Normal 150-450 [facility] Comment on above: Performed By: #### C MREP #### [facility] [address] [place] [address] Dr. Jh Boudreaux RBC 4.22 106/ul Critically low 4.70-6.10 [facility] Comment on above: Performed By: #### C MREP #### [facility] [address] [place] [address] Dr. Jh Boudreaux WBC 8.6 103/ul Normal 4.0-11.0 [facility] Comment on above: Performed By: #### C MREP #### [facility] [address] [place] [address] Dr. hJ Boudreaux CULTURE BLOODon 05-03-2021 Microscopic examination of blood, culture Culture Observations: NO GROWTH AT 5 DAYS. Normal [facility] Comment on above: Performed By: #### B DENISE, HSTROPN #### [facility] [address] [place] [address] Dr. Jh Boudreaux Microscopic examination of blood, culture Culture Observations: NO GROWTH AT [address] [facility] Comment on above: Performed By: #### B MP, HSTROPN #### [facility] [address] [place] [address] Dr. Jh Boudreaux Covid-19 PCR ([facility]on SARS-CoV-2 (COVID-19) RNA PETER+probe Ql (Unsp spec) Not detected Normal NOT DETECTED [facility] Comment on above: Result Comment: When diagnostic testing is negative, the possibility of a false negative should be considered in the context of a patient's recent exposures and the presence of clinical signs and symptoms consistent with SARS-CoV-2. This test is not yet approved or cleared by the [place] Food and Drug Administration (FDA). This test was developed by [employer], [place], [place]. The performance characteristics of this test were validated by [facility]. The results are not intended to be used as the sole means for clinical diagnosis or patient management decisions. [facility] is authorized under Clinical Laboratory Improvement [...] for this test is supported by the [place] of Health and Human Service's declaration that [...] used). Performed By: #### C MREP #### [facility] [address] [place] [address] Dr. Jh Boudreaux LACTATE/LACTIC ACIDon 2021 Lactate [Moles/Vol] 1.8 mmol/L Normal 0.7-2.0 [facility] Comment on above: Performed By: #### C MREP #### [facility] [address] [place] [address] Dr. Jh Boudreaux PROF 14(COMP METB)on 022 Albumin [Mass/Vol] 3.8 g/dL Normal 3.5-5.0 [facility] Comment on above: Performed By: #### C MP, CMADM, BNP #### [facility] [address] [place] [address] Dr. Jh Boudreaux Albumin/Globulin [Mass ratio] 1.2 {ratio} Normal [facility] Comment on above: Performed By: #### C MP, CMADM, BNP #### [facility] [address] [place] [address] Dr. Jh Boudreaux ALP [Catalytic activity/Vol] 78 U/L Normal 38-126 [facility] Comment on above: Performed By: #### C MP, CMADM, BNP #### [facility] [address] [place] [address] Dr. Jh Boudreaux ALT [Catalytic activity/Vol] 20 U/L Critically low 21-72 [facility] Comment on above: Performed By: #### C MP, CMADM, BNP #### [facility] [address] [address] [address] Jh Boudreaux Anion gap [Moles/Vol] 13.5 mmol/L Normal [facility] Comment on above: Performed By: #### C MP, CMADM, BNP #### [facility] [address] [address] [address] Jh Boudreaux AST [Catalytic activity/Vol] 19 U/L Normal 17-59 [facility] Comment on above: Performed By: #### C MP, CMADM, BNP #### [facility] [address] [place] [address] Dr. Jh Boudreaux Bilirubin [Mass/Vol] 0.8 mg/dL Normal 0.2-1.3 [facility] Comment on above: Performed By: #### C MP, CMADM, BNP #### [facility] [address] [place] [address] Dr. Jh Boudreaux Calcium [Mass/Vol] 9.2 mg/dL Normal 8.4-10.2 [facility] Comment on above: Performed By: #### C MP, CMADM, BNP #### [facility] [address] [place] [address] Dr. Jh Boudreaux Chloride [Moles/Vol] 96 mmol/L Critically low 98-107 [facility] Comment on above: Performed By: #### C MP, CMADM, BNP #### [facility] [address] [address] [address] Jh Boudreaux CO2 [Moles/Vol] 26.2 mmol/L Normal 22.0-30.0 [facility] Comment on above: Performed By: #### C MP, CMADM, BNP #### [facility] [address] [place] [address] Dr. Jh Boudreaux Creatinine [Mass/Vol] 0.91 mg/dL Normal 0.66-1.25 [facility] Comment on above: Performed By: #### C MP, CMADM, BNP #### [facility] [address] [address] [address] Jh Boudreaux EGFR-AF KYRGYZ >60 Normal >=60 [facility] Comment on above: Performed By: #### C MP, CMADM, BNP #### [facility] [address] [address] [address] Jh Boudreaux EGFR-NON AF KYRGYZ >60 Normal >=60 [facility] Comment on above: Performed By: #### C MP, CMADM, BNP #### [facility] [address] [address] [address] Jh Boudreaux Globulin (S) [Mass/Vol] 3.3 g/dL Normal [facility] Comment on above: Performed By: #### C MP, CMADM, BNP #### [facility] [address] [place] [address] Dr. Jh Boudreaux Glucose [Mass/Vol] 116 mg/dL Critically high 74-106 T [facility] Comment on above: Performed By: #### C MP, CMADM, BNP #### [facility] [address] [place] [address] Dr. Jh Boudreaux Potassium [Moles/Vol] 4.7 mmol/L Normal 3.4-5.0 [facility] Comment on above: Performed By: #### C MP CMADM, BNP #### [facility] [address] [place] [address] Dr. Jh Boudreaux Protein [Mass/Vol] 7.1 g/dL Normal 6.1-8.2 [facility] Comment on above: Performed By: #### C MP, CMADM, BNP #### [facility] [address] [place] [address] Dr. Jh Boudreaux Sodium [Moles/Vol] 131 mmol/L Critically low 137-145 [facility] Comment on above: Performed By: #### C MP, CMADM, BNP #### [facility] [address] [place] [address] Dr. Jh Boudreaux Urea nitrogen [Mass/Vol] 16.0 mg/dL Normal 9.0-20.0 [facility] Comment on above: Performed By: #### C MP CMADM, BNP #### [facility] [address] [place] [address] Dr. Jh Boudreaux Urea nitrogen/Creatinine [Mass ratio] 17.6 mg/mg Normal [facility] Comment on above: Performed By: #### C MP, CMADM, BNP #### [facility] [address] [place] [address] Dr. Jh Boudreaux PROTIMEon 05-03-2021 INR Coag (PPP) [Relative time] 1.01 {INR} Normal [facility] Comment on above: Performed By: #### C MREP #### [facility] [address] [place] [address] Dr. Jh Boudreaux INR GUIDELINES SEE BELOW Normal [facility] Comment on above: Result Comment: NADIRA RED INR: 2.0 - 3.0 CONDITIONS NOT LISTED BELOW 2.5 - 3.5 FOR PROSTHETIC HEART VALVE REPLACEMENT 2.5 - 3.5 RECURRENT THROMBOSIS Performed By: #### C MREP #### [facility] [address] [place] [address] Dr. Jh Boudreaux PT Coag (PPP) [Time] 10.9 s Normal 9.0-11.6 [facility] Comment on above: Performed By: #### C MREP #### [facility] [address] [place] [address] Dr. Jh Boudreaux PTTon 05-03-2021 aPTT Coag (Bld) [Time] 27.1 s Normal 22.3-36.2 [facility] Comment on above: Performed By: #### C MREP #### [facility] [address] [place] [address] Dr. Jh Boudreaux Vital Signs Date Time Vital Sign Value Performing Clinician J Luis wesley 12-18-2024 14:35-0400 Body height 170.2 cm [employer] Work Phone: [facility] 12-18-2024 14:35-0400 Body mass index (BMI) [Ratio] 15.19 kg/m2 [employer] DO Work Phone: [facility] 12-18-2024 14:35-0400 Body weight 44 kg Lizzette Goldberg DO Work Phone: [facility] 12-09-2024 10:58-0400 Body height 167.6 cm Laura Shea MD Work Phone: [facility] 12-09-2024 10:58-0400 Body mass index (BMI) [Ratio] 16.14 kg/m2 Laura Shea MD Work Phone: [facility] 12-09-2024 10:58-0400 Body weight 45.36 kg Laura Shea MD Work Phone: [facility] 12-09-2024 10:58-0400 Diastolic blood pressure 60 mm[Hg] Laura Shea MD Work Phone: [facility] 12-09-2024 10:58-0400 Heart rate 86 /min Laura Shea MD Work Phone: [facility] 12-09-2024 10:58-0400 SaO2% (BldA) [Mass fraction] 96 % Laura Shea MD Work Phone: [facility] 12-09-2024 10:58-0400 Systolic blood pressure 122 mm[Hg] Laura Shea MD Work Phone: [facility] 12-02-2024 10:05-0400 Body height 167.6 cm Agnieszka Hemmer PA Work Phone: [facility] 12-02-2024 10:05-0400 Body mass index (BMI) [Ratio] 16.14 kg/m2 Agnieszka Hemmer PA Work Phone: [facility] 12-02-2024 10:05-0400 Body weight 45.36 kg Agnieszka Hemmer PA Work Phone: [facility] 12-02-2024 10:05-0400 Diastolic blood pressure 76 mm[Hg] Agnieszka Hemmer PA Work Phone: [facility] 12-02-2024 10:05-0400 Heart rate 120 /min Agnieszka Hemmer PA Work Phone: [facility] 12-02-2024 10:05-0400 Respiratory rate 16 /min Agnieszka Hemmer PA Work Phone: [facility] 12-02-2024 10:05-0400 SaO2% (BldA) [Mass fraction] 99 % Agnieszka Hemmer PA Work Phone: [facility] 12-02-2024 10:05-0400 Systolic blood pressure 132 mm[Hg] Agnieszka Hemmer PA Work Phone: [facility] 11-25-2024 10:32-0400 Body height 167.6 cm Laura Shea MD Work Phone: [facility] 11-25-2024 10:32-0400 Body mass index (BMI) [Ratio] 15.82 kg/m2 Laura Shea MD Work Phone: [facility] 11-25-2024 10:32-0400 Body weight 44.45 kg Laura Shea MD Work Phone: [facility] 11-25-2024 10:32-0400 Diastolic blood pressure 70 mm[Hg] Laura Shea MD Work Phone: [facility] 11-25-2024 10:32-0400 Heart rate 66 /min Laura Shea MD Work Phone: [facility] 11-25-2024 10:32-0400 SaO2% (BldA) [Mass fraction] 98 % Laura Shea MD Work Phone: [facility] 11-25-2024 10:32-0400 Systolic blood pressure 110 mm[Hg] Laura Shea MD Work Phone: [facility] 08-04-2024 13:07-0400 Body height 167.6 cm Laura Shea MD Work Phone: [facility] 08-04-2024 13:07-0400 Body mass index (BMI) [Ratio] 15.66 kg/m2 Laura Shae MD Work Phone: [facility] 08-04-2024 13:07-0400 Body weight 44 kg Laura Shea MD Work Phone: [facility] 08-04-2024 13:07-0400 Diastolic blood pressure 68 mm[Hg] Laura Shea MD Work Phone: [facility] 08-04-2024 13:07-0400 Heart rate 93 /min Laura Shea MD Work Phone: [facility] 08-04-2024 13:07-0400 SaO2% (BldA) [Mass fraction] 99 % Laura Shea MD Work Phone: [facility] 08-04-2024 13:07-0400 Systolic blood pressure 112 mm[Hg] Laura Shea MD Work Phone: [facility] 02-05-2024 13:39-0500 Body height 167.6 cm Laura Shea MD Work Phone: [facility] 02-05-2024 13:39-0500 Body mass index (BMI) [Ratio] 16.62 kg/m2 Laura Shea MD Work Phone: [facility] 02-05-2024 13:39-0500 Body weight 46.72 kg Laura Shea MD Work Phone: [facility] 02-05-2024 13:39-0500 Diastolic blood pressure 78 mm[Hg] Laura Shea MD Work Phone: [facility] 02-05-2024 13:39-0500 Systolic blood pressure 104 mm[Hg] Laura Shea MD Work Phone: [facility] Healthcare Encounters Encounter Date Encounter Type Care Provider Facility Start: 01-08-2025 ambulatory Tran M. Lue Facility:[facility] Start: 01-05-2025 End: 01-05-2025 ambulatory Tran M. Lue Facility:[facility] Start: 12-22-2024 End: 12-22-2024 ambulatory Tran M. Lue Facility:[facility] Start: 12-18-2024 End: 12-18-2024 Office outpatient new 45 minutes Lizzette Goldberg DO Work Phone: [facility] Comment on above: Inguinal hernia of l eft side without obstruction or gangrene Start: 12-18-2024 End: 12-18-2024 ambulatory LIZZETTE Dumont ASHLYN Not Available Start: 12-11-2024 End: 12-11-2024 ambulatory Tran Chew Facility:[facility] Start: 12-11-2024 End: 12-11-2024 Patient encounter procedure Tran Chew [facility] Start: 12-09-2024 End: 12-09-2024 Bamboo flowsheet Laura Shea MD Work Phone: [facility] Start: 12-09-2024 End: 12-09-2024 Bamboo flowsmihaela Shea MD Work Phone: [facility] Start: 12-09-2024 End: 12-09-2024 Office outpatient visit 25 minutes Laura Shea MD Work Phone: [facility] Comment on above: Elevated [...] 12-02-2024 Bamboo flowsheet Agnieszka MORALES Work Phone: [facility] Start: 12-02-2024 End: 12-02-2024 Bamboo flowsheet Agnieszka MORALES Work Phone: [facility] Start: 12-02-2024 End: 12-02-2024 Office outpatient visit 25 minutes Agnieszka MORALES Work Phone: [facility] Comment on above: Fall, subsequent enc ounter (Primary Dx); Chronic kidney disease, stage 3a ([facility]); Nocturia; Primary insomnia; Elevated PSA; Hyperkalemia; Smoker Start: 12-02-2024 End: 12-02-2024 ambulatory AGNIESZKA ESCOBAR Not Available Start: 11-25-2024 End: 11-25-2024 Office outpatient visit 25 minutes Laura Shea MD Work Phone: 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 Healthcare Start: 06-14-2023 Patient encounter procedure Laura Shea MD Work Phone: [facility] Start: 04-29-2023 Chart abstracting Laura Shea MD Work Phone: [facility] Start: 03-24-2022 End: 03-24-[address] LAURA SHEA Facility:[facility] Start: 05-19-2021 End: 05-19-[address] LAURA SHEA Facility:[facility] Start: 05-03-2021 End: 05-03-[address] LAURA SHEA Facility:[facility] Start: 10-15-2017 End: 10-15-2017 Patient encounter ROSA MARIA DIAZ [facility] Procedures Date Procedure Procedure Detail Performing Clinician [...] Annual Wellness (AWV) Medicare Annual Wellness (AWV) [facility] Healthcare Start: 07-25-2025 Urine screening for protein Diabetes: Urine Protein Screening [facility] Start: 03-10-2025 Hemoglobin A1c measurement Diabetes: Hemoglobin A1C [facility] Start: 03-10-2025 End: 03-10-2025 Patient encounter procedure 03/10/2025 10:30 AM EST [facility] [address] [facility] [address] [place] [id number] Laura Shea MD [address] [facility] [address] [place] [address] [facility] Start: 01-29-2025 End: 01-29-2025 Patient encounter procedure 01/29/2025 2:15 PM EST Office Visit [facility] [address] [facility] [address] [place] [id number] Lizzette Goldberg, DO [address] [address] [facility] Start: 12-18-2024 End: 12-18-2024 Patient encounter procedure 12/18/2024 2:30 PM EDT Consult [facility] [address] [facility] [address] [place] [id number] Lizzette Goldberg, DO [address] [facility] [address] [place], [place] [id number] [facility] Start: 12-09-2024 End: 12-09-2024 Patient encounter procedure [facility] [place] [facility] Comment on above: Arrived Start: 12-04-2024 End: 12-02-2025 Basic metabolic 1998 panel - Serum or Plasma Basic metabolic panel Lab Routine Chronic kidney disease, stage 3a ([facility]) Hyperkalemia Expected: 12/04/2024 (Approximate), Expires: 12/02/2025 [facility] Healthcare Work Phone: Comment on above: Expected: 12/04/2024 (Approximate), Expires: 12/02/2025 Start: 12-02-2024 End: 12-02-2024 Patient encounter procedure 12/02/2024 10:00 AM EDT Office Visit [facility] [place] [facility] [address] [facility] [address] [place] [id number] Agnieszka Escobar PA [address] [place] [address] Arrived [facility] [place] [facility] Comment on above: Arrived Start: 11-25-2024 End: 11-25-2025 PSA, total and free PSA, total and free Lab Routine Elevated PSA Expected: 11/25/2024 (Approximate), Expires: 11/25/2025 [facility] Healthcare Work Phone: Comment on above: Expected: 11/25/2024 (Approximate), Expires: 11/25/2025 Start: 11-24-2024 Influenza vaccination Influenza Vacc ine (#1) [facility] Start: 10-25-2024 Hemoglobin A1c measurement Diabetes: Hemoglobin A1C [facility] Start: 08-04-2024 End: 08-04-2024 Patient encounter procedure [facility] Comment on above: Arrived Start: 07-08-2024 Urine screening for protein Diabetes: Urine Protein Screening [facility] Start: 06-13-2024 Medicare Annual Wellness (AWV) Medicare Annual Wellness (AWV) [facility] Start: 05-07-2024 Hemoglobin A1c measurement Diabetes: Hemoglobin A1C [facility] Start: 02-13-2024 Screening for malign ant neoplasm of colon [facility] Start: 02-05-2024 End: 02-04-2025 Noninvasive colorectal [...] [address] [place] [address] [place] [phone] Laura Shea MD [address] [place] [address] [facility] Start: 04-30-2023 End: 04-30-2023 Patient encounter procedure 04/30/2023 11:15 AM EST Office Visit [facility] [address] [place] [address] [place] [id number] Laura Shea MD [address] [place] [address] [facility] Start: 02-20-2023 Hemoglobin A1c measurement Diabetes: Hemoglobin A1C [facility] Start: 09-17-2020 Glaucoma screening Diabetes: R etinopathy Screening [facility] Start: 1950 Medicare Annual Wellness (AWV) Medicare Annual Wellness (AWV) [facility] Start: 1950 Screening for malign ant neoplasm of colon [facility] Immunizations Immunization Date Immunization Notes Care Provider Fa cili 02-05-2024 Influenza, High-dose Seasonal, Quadrivalent, Preservative Free Laura Shea MD Work Phone: [facility] 02-05-2024 influenza virus vacc ine, unspecified formulation Laura Shea MD Work Phone: [facility] 02-06-2023 Influenza, High-dose Seasonal, Quadrivalent, Preservative Free Laura Shea MD Work Phone: [facility] 02-02-2022 influenza, high dose seasonal, preservative-free Laura Shea MD Work Phone: [facility] 03-09-2021 Influenza, High-dose Seasonal, Quadrivalent, Preservative Free Laura Shea MD Work Phone: [facility] 01-07-2020 Seasonal, quadrivale nt, recombinant, injectable influenza vaccine, preservative free Laura Shea MD Work Phone: [facility] 02-06-2019 Influenza, High-dose Seasonal, Quadrivalent, Preservative Free Laura Shea MD Work Phone: [facility] 02-01-2018 Influenza, High-dose Seasonal, Quadrivalent, Preservative Free Laura Shea MD Work Phone: [facility] 01-11-2017 pneumococcal polysaccharide vaccine, 23 valent Laura Shea MD Work Phone: [facility] 12-28-2016 Influenza, High-dose Seasonal, Quadrivalent, Preservative Free Laura Shea MD Work Phone: [facility] 08-02-2015 pneumococcal conjuga te vaccine, 13 valent Laura Shea MD Work Phone: [facility] 07-30-2015 pneumococcal conjuga te vaccine, 13 valent Laura Shea MD Work Phone: [facility] 07-30-2015 zoster vaccine, live Laura kinney MD Work Phone: [facility] 12-11-2012 tetanus and diphther ia toxoids, adsorbed, preservative free, for adult use (2 Lf of tetanus toxoid and 2 Lf of diphtheria toxoid) Laura Shea MD Work Phone: [facility] 12-29-2011 influenza, seasonal, injectable, preservative free Laura Shea MD Work Phone: [facility] Payers Date Payer Category Payer Medicare (Managed Care) [employer] [id number] 2024 Medicare [id number] 2017 Medicare [id number] 2014 Unknown [id number] 1959 Medicare [id number] 1948 Unknown [id number] [id number]. 593 1948 Unknown [id number] [id number]. 593 1948 Unknown [id number] 2.16.840.1.599968.3.579.2. 593 1948 Unknown [id number] 2.16.840.1.137324.3.579.2. 1259 1948 Unknown [id number] 2.16.840.1.483864.3.579.2. 1259 1948 Unknown [id number] 2.16.840.1.343368.3.579.2. 1259 1948 Unknown [id number] 2.16.840.1.367363.3.579.2. 1259 1948 Unknown [id number] 2.16.840.1.237221.3.579.2. 1259 1948 Unknown [id number] 2.16.840.1.265178.3.579.2. 1259 1948 Unknown [id number] 2.16.840.1.091239.3.579.2. 727 1948 Unknown [id number] 2.16.840.1.731544.3.579.2. 727 1948 Unknown [id number] 2.16.840.1.069405.3.579.2. 727 1948 Unknown [id number] [id number]. 727 Social History Date Type Detail Facility Start: 01-04-2023 Tobacco smoking stat [facility] Smokes tobacco daily [facility] History [...] t obacco smoker (finding) [facility] Sexual Orientation [facility] Sex Male (finding) [facility] Medical Equipment Procedure Code Equipment Code Equipment Origin al Text Equipment Identifier Dates USE DIRECTED with idalmis walton [id number] Start: 04-23-2023 Functional Status Date Assessment Result Facility 12-09-2024 Patient Health Quest ionnaire 2 item (PHQ-2) [Reported] [facility] 12-02-2024 Patient Health Quest ionnaire 2 item (PHQ-2) [Reported] [facility] 11-25-2024 Patient Health Quest ionnaire 2 item (PHQ-2) [Reported] [facility] 08-04-2024 Patient Health Quest ionnaire 2 item (PHQ-2) [Reported] [facility] Clinical Notes 02-05-2024 to 01-05-2025 Lizzette [...] under a microscope. This is called the Berne score and the total score can range from 6?10, indicating how likely it is that the cancer will spread (metastasize) to other parts of the body. The higher the score, the greater the likelihood that the cancer will spread. ??? Alethea 6 or lower: This indicates that the cancer cells look similar to normal prostate cells (well differentiated). ??? Berne 7: This indicates that the cancer cells [...] seeds, wires, o (more content not included)... [facility] 12-22-2024 Note Patient Education Transrectal Ultrasound of [...] for your post-operative appointment in 1-2 weeks [phone] or [phone] [facility] 12-18-2024 History of Presen t illness Narrative [...] times daily PRN aspirin 81 mg, Once Ybfjysw-Txhmrtvzerd-Wnulhpgwzh (Breztri Aerosphere) 160-9-4.8 MCG/ACT aerosol 2 puffs, Every 12 hours carvedilol (COREG) 6.25 mg, Oral, 2 times daily Drug [place] Unifine Pentips 31G X 6 MM misc [...] Allergic Allergies Bronchitis Chronic airway obstruction ([facility]) Chronic airway obstruction, not elsewhere classified COPD (chronic obstructive pulmonary disease) ([facility]) Cough COVID 03/26/2021 Positive Non immunized Diabetes mellitus ([facility]) Dyspnea Esophageal reflux Essential hypertension, benign History [...] and other examination of lung field Pancreatitis ([facility]) 1994 Type 2 diabetes mellitus without complication ([facility]) 1999 Social History Tobacco Use Smoking status: [...] 2000 :Diabetes mellitus, type 2 without comp. IN MEDICATION MANAGEMENT 2011 Procedure:CXR -KBFBSBAROA-I-NJI-TESSALMAIKEL HAJI;Disease:VCNVU-SLEQTDH-WZ PD FAMILY HISTORY Family History Problem Relation [...] has been completed. documented in this encounter [facility] 12-11-2024 [facility] Discharg e instructions Patient Education 12/11/2024 09:19:38 [...] including vitamins, herbs, eye drops, creams, and gpzt-epm-zdkdchw medicines. Any problems you or family members [...] provider tells you to take them. Taking kfcw-enf-zgnkqda medicines, vitamins, herbs, and supplements. General instructions [...] provider. Document Revised: 09/05/2021 Document Reviewed: 09/05/2021 [employer] Patient Education 2023 Chartboost. 12/11/2024 08:58:35 Steps to Quit Smoking Steps [...] require a prescription. You can also purchase yksi-yzc-mwuetqb medicines. Medicines may have nicotine in them [...] and encouragement. Call telephone quitlines, such as 9-766-QJDV-NOW, reach out to support groups, or work [...] provider. Document Revised: 03/03/2022 Document Reviewed: 03/03/2022 [employer] Patient Education 2023 Chartboost. Follow Up Care 12/03/2024 12:03:39 With:Jeevan CARMONA, LE Garber, URO Address: When: Unknown [facility] 12-11-2024 Note Urology Office/Clini c Note Chief [...] Benign prostatic hyperplasia (more content not included)... [facility] Comment on above: Result Comment: Elec tronically [...] including vitamins, herbs, eye drops, creams, and wdlo-dbb-zqynutg medicines. ??? Any problems you or family [...] tells you to take them. ??? Taking amaa-rlq-eshoqij medicines, vitamins, herbs, and supplements. General instructions [...] rectal area. ?? (more content not included)... [facility] 12-09-2024 History of Presen t illness Narrative [...] tablet Chew 81 mg 1 (one) time. Bzyexyu-Enbzztaxnwa-Vxhwhetjyv (Breztri Aerosphere) 160-9-4.8 MCG/ACT aerosol Inhale 2 puffs every 12 (twelve) hours. carvedilol (Coreg) 6.25 MG tablet Take 1 tablet (6.25 mg) by mouth in the morning and 1 tablet (6.25 mg) before bedtime. 200 tablet 3 Drug [facility] X 6 MM [facility] USE DIRECTED with levemir pen fluticasone (Flonase) [...] History of being hospitalized 02/28/2017 COPD Exacerbation [facility] History of CT scan of abdomen 12/14/2020 [...] Type 2 diabetes mellitus without complication ([facility]) 1999 Past Surgical History: Procedure Laterality Date ABDOMINAL SURGERY Procedure:Phlegmon and Abdominal Surgery;Disease:Pancreatitis COLONOSCOPY 02/13/2014 Dr. Bautista Redundant colon, spastic colon CT ANGIOGRAM CHEST 02/18/2019 CT ANGIOGRAM CHEST [facility]Y ECTROPION REPAIR 10/15/2017 Left Lower Ectropion-Left Eye Dr. Diaz EYE EXAM 2000 :Diabetes mellitus, type 2 without comp. IN MEDICATION MANAGEMENT 2011 Procedure:CXR -ICZAQLBWYV-T-CBW-TESSALON ADITHYA;Disease:BSOUQ-EZXRHOR-QO PD Visit Vitals BP 122/60 Pulse 86 [...] 03/10/2025) for Diabetes. documented in this encounter [facility] 12-02-2024 History of Presen t illness Narrative Images from the original note were not included. Subjective Patient ID: Freida Dougherty is a 74 y.o. male who presents for [facility] ER follow up. Freida is present today for [facility] ER follow up. Dx. Medication adverse effect [...] tablet Chew 81 mg 1 (one) time. Eibfzfn-Coprskwnfwa-Uhqhjxxxuk (Breztri Aerosphere) 160-9-4.8 MCG/ACT aerosol Inhale 2 [...] Reported on 12/02/2024) 28 tablet 0 Drug [place] Unifine Pentips 31G X 6 MM misc [...] classified COPD (chronic obstructive pulmonary disease) ([facility]) Cough COVID 03/26/2021 Positive Non immunized Diabetes [...] Type 2 diabetes mellitus without complication ([facility]) 1999 Past Surgical History: Procedure Laterality Date ABDOMINAL SURGERY Procedure:Phlegmon and Abdominal Surgery;Disease:Pancreatitis COLONOSCOPY 02/13/2014 Dr. Bautista Redundant colon, spastic colon CT ANGIOGRAM CHEST 02/18/2019 CT ANGIOGRAM CHEST [facility] LE[facility]Y ECTROPION REPAIR 10/15/2017 Left Lower Ectropion-Left Eye Dr. Diaz EYE EXAM 1999 :Diabetes mellitus, type 2 without comp. IN MEDICATION MANAGEMENT 2011 Procedure:CXR -HYBEWZYDGY-R-VIP-JOSE MOHINIMONTY;Disease:YOYVQ-COIRLCP-IO PD Visit Vitals BP 132/76 Pulse (!) [...] Appointment As Scheduled. 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 Frcrutd-Qantaxpsxra-Fxzsziuhpu (Breztri Aerosphere) 160-9-4.8 MCG/ACT aerosol Inhale 2 puffs every 12 (twelve) hours. carvedilol (Coreg) 6.25 MG tablet Take 1 tablet (6.25 mg) by mouth in the morning and 1 tablet (6.25 mg) before bedtime. 200 tablet 3 Drug [place] Unifine Pentips 31G X 6 MM misc [...] classified COPD (chronic obstructive pulmonary disease) ([facility]) Cough COVID 03/26/2021 Positive Non immunized Diabetes mellitus ([facility]) Dyspnea Esophageal reflux Essential hypertension, benign History [...] Type 2 diabetes mellitus without complication ([facility]) 1999 Past Surgical History: Procedure Laterality Date ABDOMINAL SURGERY Procedure:Phlegmon and Abdominal Surgery;Disease:Pancreatitis COLONOSCOPY 02/13/2014 Dr. Bautista Redundant colon, spastic colon CT ANGIOGRAM CHEST 02/18/2019 CT ANGIOGRAM CHEST [facility] LEGACY ECTROPION REPAIR 10/15/2017 Left Lower Ectropion-Left Eye Dr. Diaz EYE EXAM 2000 :Diabetes mellitus, type 2 without comp. IN MEDICATION MANAGEMENT 2011 Procedure:CXR -WWGHLZUDZV-M-VYH-TESHAYLEY HAJI;Disease:NJNHK-DPOLYRE-FP PD Visit Vitals Smoking Status Every Day Review of Systems Objective Physical Exam Assessment/Plan No follow-ups on file. documented in this encounter [facility] 08-04-2024 History of Presen t illness [...] with long-term current use of insulin (HCC) ([facility]) No Tobacco use Follow ADA 1800 diet [...] tablet Chew 81 mg 1 (one) time. Durmcam-Mqoeksrugvl-Naiurpjypz (Breztri Aerosphere) 160-9-4.8 MCG/ACT aerosol Inhale 2 puffs every 12 (twelve) hours. carvedilol (Coreg) 6.25 MG tablet Take 1 tablet (6.25 mg) by mouth in the morning and 1 tablet (6.25 mg) before bedtime. 200 tablet 3 Drug [place] Unifine Pentips 31G X 6 MM mis [...] Do you have a medical power of employment attorney?: No Objective : BP 112/68 Pulse [...] with long-term current use of insulin (HCC) ([facility]) No Tobacco use Follow ADA 1800 diet [...] August 04, 2024 documented in this encounter [facility] 02-05-2024 History of Presen t illness Narrative Associated Problem(s): Smoker Discussed smoking cessation with the patient. Encouraged patient to try to cut back gradually and soon quit smoking. Discussed ways to quit smoking including gum, patches, medication, and gradually reducing the number of cigarettes smoked daily. 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 Patient voiced understanding. Benefits of cessation, both health and financial, were reviewed. Associated Problem(s): Type 2 diabetes mellitus with stage 3a chronic kidney disease, with long-term current use of insulin (HCC) ([facility]) No Tobacco use Follow ADA 1800 diet [...] Problem(s): Hypertension due to endocrine disorder ([facility]) Our specific goals, for your hypertension, is [...] tablet Chew 81 mg 1 (one) time. Qpchodh-Zhhxtslmqty-Dluhdhxhri (Breztri Aerosphere) 160-9-4.8 MCG/ACT aerosol Inhale 2 puffs every 12 (twelve) hours. carvedilol (Coreg) 6.25 MG tablet Take 1 tablet (6.25 mg) by mouth in the morning and 1 tablet (6.25 mg) before bedtime. 200 tablet 3 Continuous Blood Gluc Motor Vehicle Assembler (FreeStyle Solange 2 [place]) device 1 Units in the morning and 1 Units at noon and 1 Units in the evening and 1 Units before bedtime. Continuous Blood Gluc Sensor (FreeStyle Solange 2 Sensor) misc 1 Units every 14 (fourteen) days 6 each 3 Drug [place] Unifine Pentips 31G X 6 MM misc [...] 2000 :Diabetes mellitus, type 2 without comp. IN MEDICATION MANAGEMENT 2011 Procedure:CXR -APFZSSSFVH-R-DDC-TESSALON PERLES;Disease:MZFZR-AACABTO-TZ PD Visit Vitals BP 104/78 Ht 5' [...] smoked daily. 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 Patient voiced understanding. Benefits of cessation, both health and financial, were reviewed. Hypertension due to endocrine disorder ([facility]) - Primary Our specific goals, for your [...] with long-term current use of insulin ([facility]) ([facility]) No Tobacco use Follow ADA 1800 diet [...] Surgery Other Visit Diagnoses Unspecified protein-calorie malnutrition ([facility]) Immunodeficiency due to conditions classified elsewhere ([facility]) Follow up in about 6 months (around 08/04/2024) for Diabetes. documented in this encounter [facility] 02-05-2024 Miscellaneous Notes Addended by: JOAN BLEVINS on: 02/05/2024 02:09 PM Modules accepted: Orders documented in this encounter [facility] 02-05-2024 Note Addended by: JOAN BLEVINS on: 02/05/2024 02:09 PM Modules accepted: Orders [facility] 02-05-2024 Note Addended by: JOAN BLEVINS on: 02/05/2024 02:09 PM Modules accepted: Orders [facility] Evaluation + Plan note Future Appointments Appointment Date:12/18/2024 02:00:00 PM Scheduled Provider: Location:[facility] Surgical Services Appointment Type:Urology CALL PAT FT Appointment Date:12/22/2024 09:00:00 AM Scheduled Provider: Location:[facility] Appointment Type:Urology FT Appointment Date:01/08/2025 08:15:00 AM Scheduled Provider:Tran Chew MD Location: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 Type 2 diabetes mellitus with [...] complication, unspecified whether mcc insulin use (HCC) Hypertension due to endocrine [...] 2 diabetes mellitus without complication, unspecified 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 (HCC) Infrarenal abdominal aortic aneurysm [...] for vaccination Routine general medical examination at [facility] facility- Primary Routine general medical examination at a [facility] Type 2 diabetes mellitus without complication, [...] specific antigen (PSA) documented in this encounter [facility] HealthcareEvaluation note* Diagnosis Type 2 diabetes mellitus without complication, unspecified whether mcc insulin use (HCC) Hypertension due to endocrine [...] maintaining sleep Routine general medical examination at [facility] facility- Primary Routine general medical examination at a [facility] facility Pure hypercholesterolemia Pure hypercholesterolemia Essential hypertension, benign Essential hypertension, benign Screening for malignant neoplasm of colon Type 2 diabetes mellitus without complication, unspecified 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 (HCC) Infrarenal abdominal aortic aneurysm (AAA) without rupture Medicare annual wellness visit, subsequent Type 2 diabetes mellitus with stage 3a chronic kidney disease, with long-term current use of insulin (HCC) Essential hypertension, benign- Primary Essential hypertension, benign Type 2 diabetes mellitus without complication, unspecified 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 (HCC) Type 2 diabetes mellitus [...] for vaccination Routine general medical examination at [facility] facility- Primary Routine general medical examination at a [facility] Type 2 diabetes mellitus without complication, [...] complication, unspecified whether mcc insulin use (HCC) Hypertension due to endocrine [...] Primary Routine general medical examination at a [facility] facility Pure hypercholesterolemia Pure hypercholesterolemia Essential hypertension, benign Essential hypertension, benign Screening for malignant neoplasm of colon Type 2 diabetes mellitus without complication, unspecified 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 (HCC) Infrarenal abdominal aortic aneurysm [...] obstruction or gangrene documented in this encounter [facility] HealthcareEvaluation note* Diagnosis Type 2 diabetes mellitus without complication, unspecified 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 (HCC) Hypertension due to endocrine [...] 2 diabetes mellitus without complication, unspecified 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 Relationship Specialty Start Date End Date Laura Shea MD [address] [facility] [address] [place] [address] PCP - General Family Medicine 09/08/22 Barrel Rib Matting Machine Operator Relationship Specialty Start Date End Date Laura Shea MD [address] [facility] [address] [place] [address] PCP - General Family Medicine 09/08/22 Laura Shea MD [address] [facility] [address] [place] [address] PCP - ACO Reach 05/25/23 Barrel Rib Matting Machine Operator Relationship Specialty Start Date End Date Laura Shea MD [address] [facility] [address] [place] [address] PCP - General Family Medicine 09/08/22 Barrel Rib Matting Machine Operator Relationship Specialty Start Date End Date Laura Shea MD [address] [facility] [address] [place] [address] PCP - General Family Medicine 09/08/22 Barrel Rib Matting Machine Operator Relationship Specialty Start Date End Date Laura Shea MD [address] [facility] [address] [place] [address] PCP - General Family Medicine 09/08/22 Barrel Rib Matting Machine Operator Relationship Specialty Start Date End Date Laura Shea MD [address] [facility] [address] [place] [address] PCP - General Family Medicine 09/08/22 Barrel Rib Matting Machine Operator Relationship Specialty Start Date End Date Laura Shea MD [address] [facility] [address] [place] [address] PCP - General Family Medicine 09/08/22 Barrel Rib Matting Machine Operator Relationship Specialty Start Date End Date Laura Shea MD [address] [facility] [address] [place] [address] PCP - General Family Medicine 09/08/22 Barrel Rib Matting Machine Operator Relationship Specialty Start Date End Date Laura Shea MD [address] [address] PCP - General Family Medicine 09/08/22 Barrel Rib Matting Machine Operator Relationship Specialty Start Date End Date Laura Shea MD [address] [facility] [address] [place] [address] PCP - General Family Medicine 09/08/22 Reason [...] left side without obstruction or gangrene Procedures IN OFFICE/OUTPATIENT NEW HIGH MDM 60 MINUTES Laura Shea MD [address] [facility] [address] [place] [address] Phone: tel: fax: Prabhakar Carmona MD [address] [address] Phone: tel: fax: Referral ID Status Reason Start Date Expiration Date V isits Requested Visits Authorized [id number] Closed Specialty Services Required 11/25/2024 05/24/2025 1 [...] BE BASED ON THE PRIMARY CLINICAL RECORDS. [facility] [employer] [facility]. provides no warranty or guarantee of the accuracy or completeness of information in this document.
[2025-01-06] MEDS: 0.9 % SODIUM CHLORIDE 500 ML IV (23:14)
[2025-01-06] MEDS: CARVEDILOL 6.25 MG TABLET PO (23:18)
[2025-01-06] MEDS: LACTULOSE 10 GM/15 ML UD CUP 30 GM PO (23:18)
[2025-01-06] MEDS: SODIUM ZIRCONIUM CYCLOSILICATE 10 GM POWD.PACK 15 GM PO (23:19)
[2025-01-06] MEDS: FUROSEMIDE 40 MG/4 ML VIAL IVP (23:29)
[2025-01-06 23:46] LABS: Glucose Urine UA NEGATIVE (NEGATIVE)
[2025-01-06 23:54] LABS: Cast Seen? SEEN #/LPF (NONE SEEN); Crystals Seen? None Seen #/HPF (None Seen); Urine Culture Indicated NO
[2025-01-07] VITALS (22 sets, daily range): BP systolic 107–143; BP diastolic 68–88; PULSE 81–149; TEMP 36.4–36.9; O2SAT 92–95
[2025-01-07] MEDS: 0.9 % SODIUM CHLORIDE 1,000 ML 150 ML IV ×2 (00:20→06:58)
[2025-01-07] MEDS: CALCIUM GLUC IN NACL, ISO-OSM 1 GM/50 ML PLAST..BAG IV (00:21)
[2025-01-07 05:55] LABS: Anion Gap 16.9; Blood Urea Nitrogen 59.0 mg/dL (7.0-18.0); Calcium 8.8 mg/dL (8.5-10.1); Carbon Dioxide 21.4 mmol/L (21.0-32.0); Chloride 109 mmol/L (98-107); Estimated GFR (African America 43 (>=60 mL/min/1.73m^2); Estimated GFR (Non-African Ame 35 (>=60 mL/min/1.73m^2); Glucose 256 mg/dL (74-106); Potassium 5.3 mmol/L (3.5-5.1); Sodium 142 mmol/L (136-145)
[2025-01-07 05:56] LABS: Alanine Aminotransferase 25 U/L (16-63); Alkaline Phosphatase 102 U/L (46-116); Aspartate Amino Transferase 17 U/L (15-37); Magnesium 1.7 mg/dL (1.8-2.4)
[2025-01-07 05:57] LABS: Albumin Globulin Ratio 0.9; Albumin Level 3.2 g/dL (3.4-5.0); Creatine Kinase 21 U/L (39-308); Globulin 3.4 g/dL; Total Protein 6.6 g/dL (6.4-8.2)
[2025-01-07 06:07] LABS: Hematocrit 33.0 % (42.0-54.0); Hemoglobin 11.4 g/dL (14.0-18.0); Immature Granulocytes Abs Auto 0.03 10^3/uL (0.00-0.03); Immature Granulocytes Pct Auto 0.4 % (0.0-0.5); Lymphocytes Absolute Auto 1.5 10^3/uL (1.2-3.8); Mean Corpuscular HGB Conc 34.5 g/dL (29.9-35.2); Mean Corpuscular Hemoglobin 32.2 pg (25.9-34.0); Mean Corpuscular Volume 93.2 fL (80.0-94.0); Platelet Count 184 10^3/uL (150-450); Red Blood Count 3.54 10^6/uL (4.70-6.10); White Blood Count 6.8 10^3/uL (4.0-11.0)
[2025-01-07] MEDS: CARVEDILOL 6.25 MG TABLET PO (09:06)
--- NOTE | 2025-01-07 09:35 | CM.NOTE ---
Rounds made with Dr. Ferguson, possible discharge to home this afternoon. Pt will get repeat BMP at noon today. No other discharge needs identified. Pt will f/u with PCP.
--- NOTE | 2025-01-07 10:00 | US_ITS ---
The [address] [address] Patient Name: FREIDA RIDDLE MRN: [id number] date: 1950 Sex: M Assigned Patient Location: [place] Current Patient Location: Accession/Order Number: [id number] Exam Date: 01/07/2025 10:00 Report Date: 01/07/2025 10:52 At the request of: SOWMYA AVILA MD Procedure: US renal BI BILATERAL RENAL AND BLADDER ULTRASOUND CLINICAL HISTORY: Acute on chronic kidney disease. COMPARISON: CT abdomen 04/20/2023 Estimation of renal size is approximately 9.1 cm on the right and 8.8 cm on the left. The left kidney is a lobulated contour. Tiny echogenic foci with twinkle artifact are identified on the left, possibly stones. No hydronephrosis is seen. No renal mass lesions were imaged. There is no perinephric fluid. The urinary bladder is partially distended with a volume of 240 mL. No contour or intraluminal abnormalities are seen. US/US renal BI IMPRESSION: POSSIBLE LEFT NEPHROLITHIASIS. NO OBSTRUCTIVE UROPATHY. Impression dictated by: Agnieszka Butt M.D. 01/07/2025 10:52 AM Dictation Location: [place] [address] Electronically authenticated by: [id number] Y Date: 01/07/2025 10:52
--- NOTE | 2025-01-07 11:17 | SWNOTE1 ---
Medicare Outpatient Observation Notice reviewed and discussed with patient. Pt. verbalized understanding and signed the form. Original given to patient and copy placed in patient?s chart.
--- NOTE | 2025-01-07 11:17 | SWNOTE1 ---
SW met with pt to discuss dc needs. Pt lives at home with his . He stated he was in [place] yesterday getting lab work done and they called him once he was home and told him to go to the emergency room. Pt voiced he is feeling fine at this time. Pt is independent at home and still drives. Pt has no services coming in at this time. Pt has no anticipated discharge needs. SW to follow as needed.
[2025-01-07 13:00] LABS: Anion Gap 13.2; Blood Urea Nitrogen 50.0 mg/dL (7.0-18.0); Calcium 8.0 mg/dL (8.5-10.1); Carbon Dioxide 25.1 mmol/L (21.0-32.0); Chloride 108 mmol/L (98-107); Estimated GFR (African America 47 (>=60 mL/min/1.73m^2); Estimated GFR (Non-African Ame 39 (>=60 mL/min/1.73m^2); Glucose 309 mg/dL (74-106); Potassium 5.3 mmol/L (3.5-5.1); Sodium 141 mmol/L (136-145)
[2025-01-07] MEDS: INSULIN ASPART 300 UNIT/3 ML PEN SUBQ ×2 (13:12→21:27)
--- NOTE | 2025-01-07 14:24 | PM.HP ---
HPI H&P: HPI History of Present Illness Chief complaint: HYPERKALEMIA Narrative: Patient is a 74 yo M with PMH as listed who presented to ER due to abnormal labs. Patient was getting pre op labs drawn and received phone call of his potassium 6.7. he was told to go to ER immediately. Patient's daughter brought him here for further eval. He denies any symptoms whatsoever. Potassium has come back at 6.3 with a BUN of 63 and a creatinine of 1.77. Ordered D50 and insulin and the potassium will need to be rechecked Recheck K+ remains elevated. Discussed with the hospitalist and patient accepted for obs. Opioid HPI Opioid Management Most Recent Pain and Opioid Data: Last Pain Assessment 01/06/25, 23:00 Last ORT Total Score 0 01/06/25, 22:29 Last ORT Risk Category Low Risk 01/06/25, 22:29 Review of Systems ROS Status of ROS 10 or more systems reviewed and unremarkable except as noted in history and below [facility] Medical History (Updated 01/07/25 @ 14:30 by HOSEA LOPEZ MD) Fall ?W19.XXXA - Unspecified fall, initial encounter (ICD-10) Hyperglycemia ?R73.9 - Hyperglycemia, unspecified (ICD-10) Acute renal failure ?N17.9 - Acute kidney failure, unspecified (ICD-10) Hyponatremia ?E87.1 - Hypo-osmolality and hyponatremia (ICD-10) Hyperkalemia ?E87.5 - Hyperkalemia (ICD-10) Cirrhosis ?K74.60 - Unspecified cirrhosis of liver (ICD-10) Hyperlipidemia associated with type 2 diabetes mellitus ?E11.69 - Type 2 diabetes mellitus with other specified complication (ICD-10) ?E78.5 - Hyperlipidemia, unspecified (ICD-10) Hypertension ?I10 - Essential (primary) hypertension (ICD-10) COPD (chronic obstructive pulmonary disease) ?J44.9 - Chronic obstructive pulmonary disease, unspecified (ICD-10) Otitis media ?H66.90 - Otitis media, unspecified, unspecified ear (ICD-10) Diabetes ?E11.9 - Type 2 diabetes mellitus without complications (ICD-10) Family History (Updated 01/06/25 @ 22:42 by Otilia Patel RN) Father Family history of CHF (congestive heart failure) Sister Family history of diabetes mellitus Other Family history of hypertension Social History (Updated 01/06/25 @ 22:43 by Otilia Patel RN) Within the past year, how often did you have a drink containing alcohol: never Score interpretation: A score less than 4 is consistent with normal alcohol consumption. 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 Highest level of school completed/degree received: 11th grade Are you now , , , , never or living with a partner: In a typical week, how many times do you talk on the telephone with family, friends, or neighbors: twice per week How often do you get together with friends or relatives: twice per week Little interest or pleasure in doing things: not at all Feeling down, depressed, or hopeless: not at all Feel stressed/tense/nervous/anxious/difficulty sleeping: not at all Do you think of yourself as: straight/heterosexual Gender Identity: male Meds Home Medications and Allergies Home Medications ?Medication ?Instructions ?Recorded ?Confirmed ?Type albuterol sulfate 2.5 mg/3 mL 2.5 mg inhalation Q4H PRN 10/29/22 01/07/25 History (0.083 %) solution for nebulization bronchospasm carvedilol 6.25 mg tablet 6.25 mg PO Q12H 10/29/22 01/07/25 History lisinopril 20 mg tablet 20 mg PO DAILY 10/29/22 01/07/25 History pravastatin 40 mg tablet 40 mg PO DAILY 10/29/22 01/07/25 History fluticasone propionate 50 2 spray intranasal QD 30 days #1 g 04/23/23 01/07/25 Rx mcg/actuation nasal spray,suspension insulin glargine 100 unit/mL (3 8 unit subcut QPM 09/17/24 01/07/25 History mL) subcutaneous pen (Lantus Solostar U-100 Insulin) metformin 1,000 mg tablet 1,000 mg PO BIDWM 01/07/25 History tamsulosin 0.4 mg capsule 0.4 mg PO .QHS 01/07/25 01/07/25 History Allergies Allergy/AdvReac Type Severity Reaction Status Date / Time No Known Drug Allergies Allergy Verified 01/06/25 17:38 Exam Narrative Exam Narrative: General:The patient appears his stated age and he is in no acute distress Skin:Warm, no pallor noted.There is no rash noted. Head:Normocephalic, atraumatic Eye: Normal conjunctiva, no drainage Ears, Nose, Mouth, and Throat: oral mucosa is moist. Nares patent. Cardiovascular:Regular Rate and Rhythm Respiratory:Patient is in no distress, no accessory muscle use, lungs are clear to auscultation, no wheezing, rales or rhonchi Back:non-tender GI: Nontender Musculoskeletal: The patient has no evidence of calf tenderness, no pitting edema, symmetrical pulses noted bilaterally Neurological: Awake and alert Psychiatric:Cooperative Constitutional Vital Signs, click to edit/add: Last Vital Signs Temp 97.8 F 01/07/25 11:31 Pulse 94 H 01/07/25 13:56 Resp 18 01/07/25 11:31 BP 107/68 01/07/25 11:31 Pulse Ox 92 L 01/07/25 11:31 O2 Del Method Room Air 01/07/25 11:31 Results Labs Labs: Short CBC 01/06/25 01/07/25 Range/Units 18:03 04:47 WBC 9.0 6.8 (4.0-11.0) 10^3/uL Hgb 12.3 L 11.4 L (14.0-18.0) g/dL Hct 35.3 L 33.0 L (42.0-54.0) % Plt Count 222 184 (150-450) 10^3/uL BMP 01/06/25 01/06/25 01/07/25 18:03 21:05 04:47 Sodium 138 142 Potassium 6.3 H* 6.2 H* 5.3 H Chloride 105 109 H Carbon Dioxide 22.7 21.4 BUN 63.0 H 59.0 H Creatinine 1.77 H 1.88 H Glucose 116 H 256 H Calcium 9.2 8.8 01/07/25 12:38 Sodium 141 Potassium 5.3 H Chloride 108 H Carbon Dioxide 25.1 BUN 50.0 H Creatinine 1.72 H Glucose 309 H Calcium 8.0 L Cardiac Enzymes 01/07/25 Range/Units 04:47 Total Creatine Kinase 21 L (39-308) U/L Liver Function 10/15/25 Range/Units 04:47 Total Bilirubin 0.4 (0.2-1.0) mg/dL Direct Bilirubin 0.1 (0.0-0.2) mg/dL AST 17 (15-37) U/L ALT 25 (16-63) U/L Alkaline Phosphatase 102 (46-116) U/L Albumin 3.2 L (3.4-5.0) g/dL Urine 01/06/ Range/Units 22:30 Urine Color Lt. yellow (YELLOW) Urine Clarity Clear (CLEAR) Urine pH 5.5 (5.0-9.0) Ur Specific [place] 1.015 (1.005-1.025) Urine Protein Trace (NEG/TRACE) mg/dL Urine Glucose (UA) Negative (NEGATIVE) mg/dL Assessment and Plan Assessment and Plan (1) Hyperkalemia: (2) MIR (acute kidney injury): Plan -Afebrile, no leukocytosis, no obvious signs of infectious process -Repeat labs today K still around 5.3. BUN /Cr 50/1.7 on most recent labs. -Continue IV hydration for now -Will Recheck labs in am -Continue to hold Lisinopril due to MIR and hyperkalemia -Continue Flomax. It seems that pt does have issues with his BPH, follows with urologist in [place]. -Renal US done showed no obstructive uropathy. possible left nephrolithiasis vs artifact, pt with no pain there. Bladder volume about 240 mml. Bladder scan here post void about 90 cc. Not significant. -Avoid nephrotoxic meds -Insulin therapy for DM while here. DVT ppx: heparin Diet: as directed Discussed with pt at bedside, all questions answered
--- NOTE | 2025-01-07 19:56 | ECG_ITS ---
The [facility] Test Date: 2025-01-07 Pat Name: FREIDA RIDDLE Department: Room: Gender: Male Lay Out Technician: : 1950 Requested By: [id number] Order Number: [id number] Reading MD: AYAKA HUFF Measurements Intervals [place] Rate: 100 P: OK: QRS: 84 QRSD: 88 T: 89 QT: 337 QTc: 436 Interpretive Statements SINUS TACHYCARDIA SEPTAL MYOCARDIAL INFARCTION [40+ ms Q WAVE IN V1/V2], OF INDETERMINATE AGE Compared to ECG 01/06/2025 17:58:29 Myocardial infarct finding now present Sinus rhythm no longer present Electronically Signed On 01-08-2025 9:36:15 EDT by AYAKA HUFF
[2025-01-07 20:34] LABS: Magnesium 1.6 mg/dL (1.8-2.4); Potassium 5.2 mmol/L (3.5-5.1)
[2025-01-07] MEDS: METOPROLOL TARTRATE 5 MG/5 ML VIAL IVP (20:34)
[2025-01-07] MEDS: CARVEDILOL 6.25 MG TABLET 12.5 MG PO (20:34)
[2025-01-07] MEDS: TAMSULOSIN HCL 0.4 MG CAPSULE PO (21:25)
[2025-01-07] MEDS: INSULIN GLARGINE 300 UNIT/3 ML INSULN.PEN 8 UNIT SQ (21:26)
[2025-01-07] MEDS: HEPARIN SODIUM (PORCINE) 5,000 UNIT/ML VIAL 5000 UNIT SUBQ (21:27)
[2025-01-08] VITALS (11 sets, daily range): BP systolic 104–121; BP diastolic 52–72; PULSE 75–93; TEMP 36.4–36.6; O2SAT 92–95
[2025-01-08 05:35] LABS: Anion Gap 13.3; Blood Urea Nitrogen 46.0 mg/dL (7.0-18.0); Calcium 8.2 mg/dL (8.5-10.1); Carbon Dioxide 22.2 mmol/L (21.0-32.0); Chloride 113 mmol/L (98-107); Estimated GFR (African America 53 (>=60 mL/min/1.73m^2); Estimated GFR (Non-African Ame 44 (>=60 mL/min/1.73m^2); Glucose 55 mg/dL (74-106); Potassium 4.5 mmol/L (3.5-5.1); Sodium 144 mmol/L (136-145)
--- NOTE | 2025-01-08 05:55 | PC.NURSE ---
patients blood sugar found to be 55 with morning labs. Gave patient OJ and instructed to drink
--- NOTE | 2025-01-08 08:40 | CM.NOTE ---
Rounds made with Dr. Ferguson, pt will discharge to home today and f/u with PCP. Daughter at bedside and pt has f/u scheduled with urology and order for PET scan. Daughter states Dr. Chew diagnosed pt with prostate CA and now would like PET scan prior to f/u for further investigation. Daughter verbalizes understanding of medication changes discussed by Dr. Ferguson.
[2025-01-08] MEDS: ATORVASTATIN CALCIUM 10 MG TABLET PO (08:45)
[2025-01-08] MEDS: CARVEDILOL 6.25 MG TABLET 12.5 MG PO (08:45)
[2025-01-08] MEDS: HEPARIN SODIUM (PORCINE) 5,000 UNIT/ML VIAL 5000 UNIT SUBQ (10:55)
--- NOTE | 2025-01-08 11:16 | P.DS_ITS ---
DS: Providers Provider Date of admission: 01/06/25 22:24 Primary care physician: LAURA OSBORNE Consults: 01/06/25 Consult to Dietitian Routine Reason for consultation: WEIGHT LOSS Has provider been notified: No DS: Diagnosis Discharge Diagnosis (1) Hyperkalemia: (2) MIR (acute kidney injury): Plan as above DS: Summary Hospital Course Hospital Course: Patient is a 74 yo M with PMH as listed who presented to ER due to abnormal labs. Patient was getting pre op labs drawn and received phone call of his potassium 6.7. he was told to go to ER immediately. Patient's daughter brought him here for further eval. He denies any symptoms whatsoever. Potassium has come back at 6.3 with a BUN of 63 and a creatinine of 1.77. Ordered D50 and insulin and the potassium will need to be rechecked Recheck K+ remains elevated. Discussed with the hospitalist and patient accepted for obs. During hospital course, patient was treated for hyperkalemia, maintined on IV hydration, held any nephrotoxic agent. lisinopril remained on hold. Patient was monitored here. Renal US done showed no obstructive uropathy. possible left nephrolithiasis vs artifact, pt with no pain there. Bladder volume about 240 mml. Bladder scan here post void about 90 cc. Not significant. Today, his blood work showing improvement, K level back normal levels, kidney function improved. unclear exact baseline. Pt has had prostate issues BPH with c oncern for malignancy as his PSA was elevated as per daughter who was present at bedside, also states that pt had orthostatic hypotension with Flomax and had falls at home and been on hold. Discussed adding alternative Proscar and they are in agreement. sent a prescription for that. As of today, patient is hemodynamically stable for discharge at this time with outpatient follow up with his PCP. Will need to repeat blood work again pre op his upcoming. Discussed with pt and daughter at bedside, all questions answered. Time Spent with Patient Time attestation: Total time spent providing and/or coordinating discharge services: Time spent: greater than 30 minutes Exam Narrative Exam Narrative: General:The patient appears his stated age and he is in no acute distress Skin:Warm, no pallor noted.There is no rash noted. Head:Normocephalic, atraumatic Eye: Normal conjunctiva, no drainage Cardiovascular:Regular Rate and Rhythm Respiratory:Patient is in no distress, no accessory muscle use, lungs are clear to auscultation, no wheezing, rales or rhonchi Back:non-tender GI: Nontender Musculoskeletal: The patient has no evidence of calf tenderness, no pitting edema, symmetrical pulses noted bilaterally Neurological: Awake and alert, oriented, hard of hearing. follows commands, no obvious focal deficits. Psychiatric:Cooperative Constitutional Vital Signs, click to edit/add: Last Vital Signs Temp 97.8 F 01/08/25 08:24 Pulse 93 H 01/08/25 09:56 Resp 16 01/08/25 08:24 BP 121/72 01/08/25 08:24 Pulse Ox 95 01/08/25 08:24 O2 Del Method Room Air 01/08/25 08:24 DS: Data Data Completed and Pending Labs on day of discharge: Labs from last 24 hours 01/08/25 01/08/25 01/07/25 08:31 04:54 21:25 Sodium 144 Potassium 4.5 Chloride 113 H Carbon Dioxide 22.2 Anion Gap 13.3 BUN 46.0 H Creatinine 1.55 H Est GFR ( Amer) 53 L Est GFR (Non-Af Amer) 44 L BUN/Creatinine Ratio 29.7 Glucose 55 L Calcium 8.2 L Magnesium Troponin I High Sens POC Glucose 126 H 241 H 01/07/25 01/07/25 20:14 12:38 Sodium 141 Potassium 5.2 H 5.3 H Chloride 108 H Carbon Dioxide 25.1 Anion Gap 13.2 BUN 50.0 H Creatinine 1.72 H Est GFR ( Amer) 47 L Est GFR (Non-Af Amer) 39 L BUN/Creatinine Ratio 29.1 Glucose 309 H Calcium 8.0 L Magnesium 1.6 L Troponin I High Sens 16.3 POC Glucose Discharge Plan Discharge Disposition: Home, Self-Care Plan of Treatment: -Continue to hold Lisinopril -Start Finasteride for prostate -Follow up with blood workup before your upcoming surgery -Keep followijg with your PCP. Discharge Medications: New finasteride 5 mg tablet 5 mg PO .qhs Qty: 30 0RF Continued albuterol sulfate 2.5 mg /3 mL (0.083 %) solution for nebulization 2.5 mg inhalation Q4H PRN (Reason: bronchospasm) carvedilol 6.25 mg tablet 6.25 mg PO Q12H pravastatin 40 mg tablet 40 mg PO DAILY fluticasone propionate 50 mcg/actuation [place],Suspension 2 spray intranasal QD 30 Days Qty: 1 0RF insulin glargine [Lantus Solostar U-100 Insulin] 100 unit/mL (3 mL) insulin pen 8 unit subcut QPM metformin 1,000 mg tablet 1,000 mg PO BIDWM Discontinued lisinopril 20 mg tablet 20 mg PO DAILY tamsulosin 0.4 mg capsule 0.4 mg PO .QHS Print Language: Pakistani Patient Instructions: Hyperkalemia (DC) Forms: Portal Instructions Follow Up Appointments: 01/15 @ 3pm with Dr. Osborne [phone]
[2025-01-08] MEDS: INSULIN ASPART 300 UNIT/3 ML PEN SUBQ (11:34)
== END 2025-01-08 13:32 | disposition home or self-care (01) ==
LOC: ER 21:58 → MS 22:26
PROVIDERS: Emergency Medicine; Admitting Provider Internal Medicine; Emergency Provider Internal Medicine; PCP Family Medicine; Visit Provider Internal Medicine
DX: E87.5 Hyperkalemia (principal); N17.9 Acute kidney failure, unspecified; F17.200 Nicotine dependence, unspecified, uncomplicated; E11.9 Type 2 diabetes mellitus without complications; Z79.4 Long term (current) use of insulin; Z79.84 Long term (current) use of oral hypoglycemic drugs; N40.0 Benign prostatic hyperplasia without lower urinary tract symptoms; R97.20 Elevated prostate specific antigen [PSA]; Z91.81 History of falling
CPT/HCPCS: 36415; 76775; 80048; 80076; 81001; 82550; 82948; 83036; 83735; 84132; 84484; 85025; 93005; 96365; 96372; 96375; 99285; G0378; J0613; J1644; J1817; J1938